=== PATIENT | female | born 1955 | race Caucasian/White ===

== ENCOUNTER → 2022-01-24 10:50 | Outpatient (CLI) | payer MEDICARE, MEDICAID, SELFPAY ==
[2022-01-24 16:38] LABS: Hemoglobin A1C 6.7 % (4.0-6.0)
== END ==
PROVIDERS: PCP Family Medicine; Visit Provider Family Medicine
DX: E11.9 Type 2 diabetes mellitus without complications (principal)
CPT/HCPCS: 83036

== ENCOUNTER 2022-09-17 10:32 | Emergency (ER) | payer MEDICARE, MEDICAID, SELFPAY ==
[2022-09-17 10:50] VITALS: BP 104/61; PULSE 87; RESP 18; TEMP 36.7; O2SAT 98; BMI 24.9
[2022-09-17 10:54] VITALS: BP 104/61; PULSE 88; RESP 20; O2SAT 98
[2022-09-17 11:00] VITALS: BP 112/64; PULSE 86; RESP 20; O2SAT 97
--- NOTE | 2022-09-17 11:18 | XR_ITS ---
PROCEDURE INFORMATION: Exam: XR Right Wrist Exam date and time: 09/17/2022 11:47 AM Age: 67 years old Clinical indication: Injury or trauma; Fall; Sprain or strain; Wrist; Right TECHNIQUE: Imaging protocol: Radiologic exam of the right wrist. Views: 3 or more views. COMPARISON: CR XR HAND RT MIN 3V 09/17/2022 11:45 AM FINDINGS: Bones/joints: No acute fracture or dislocation. Osteopenia. Soft tissues: Normal. IMPRESSION: No acute fracture or dislocation.
--- NOTE | 2022-09-17 11:25 | XR_ITS ---
PROCEDURE INFORMATION: Exam: XR Right Hand Exam date and time: 09/17/2022 11:45 AM Age: 67 years old Clinical indication: Injury or trauma; Fall; Sprain or strain; Hand; Right; Additional info: Fall, injury TECHNIQUE: Imaging protocol: Radiologic exam of the right hand. Views: 3 or more views. COMPARISON: No relevant prior studies available. FINDINGS: Limitations: Metallic ring overlying the 4th proximal phalanx. Bones/joints: No acute fracture or dislocation. Osteopenia. Degenerative change of the 2nd distal interphalangeal joint. Soft tissues: Normal. IMPRESSION: No acute fracture or dislocation.
--- NOTE | 2022-09-17 11:25 | XR_ITS ---
PROCEDURE INFORMATION: Exam: XR Right Forearm Exam date and time: 09/17/2022 11:49 AM Age: 67 years old Clinical indication: Injury or trauma; Fall; Sprain or strain; Arm, lower; Right; Additional info: Fall injury, pain lateral forearm TECHNIQUE: Imaging protocol: Radiologic exam of the right forearm. Views: 2 views. COMPARISON: No relevant prior studies available. FINDINGS: Bones/joints: No acute fracture or dislocation. Osteopenia. Soft tissues: Normal. IMPRESSION: No acute fracture or dislocation.
--- NOTE | 2022-09-17 11:26 | HMH.EDGENADL ---
Discharge Plan Disposition Patient Disposition: Home, Self-Care Prescriptions Prescriptions: No Action mecobalamin (vitamin B12) 1,000 mcg tablet,disintegrating 1,000 mcg sublingual DAILY Qty: 90 0RF Rx Instructions: place tablet under tongue and allow to dissolve for at least30 secs before swallowing Emgality Pen 120 mg/mL pen injector 120 mg SQ QMONTH Qty: 1 0RF pantoprazole [Protonix] 40 mg tablet,delayed release (DR/EC) 40 mg PO DAILY Qty: 90 3RF Trelegy Ellipta 200-62.5-25 mcg blister with device 1 inh inhalation DAILY Qty: 60 3RF Trulicity 3 mg/0.5 mL pen injector 3 mg SQ WEEKLY Qty: 2 3RF clonazepam [Klonopin] 1 mg tablet 1 mg PO TID sertraline 100 mg tablet 100 mg PO DAILY Qty: 90 3RF topiramate [Topamax] 100 mg tablet 100 mg PO DAILY Qty: 180 3RF tamsulosin 0.4 mg capsule 0.4 mg PO DAILY Qty: 90 3RF atorvastatin 80 mg tablet 80 mg PO DAILY Qty: 90 3RF promethazine 25 mg tablet 25 mg PO TID PRN (Reason: nausea and vomiting) Qty: 60 3RF ropinirole 2 mg tablet 2 mg PO BID Qty: 180 3RF Referrals Follow up/Referrals: Provider,Referral, MD [Primary Care Provider] - See instructions Activity Restrictions/Add. Instructions Additional Instructions/Restrictions: Wear your Velcro wrist splint as needed for comfort. If you are not improving in 1 to 2 weeks follow-up with orthopedic surgery. Clinical Impressions Clinical Impression: Sprain of right wrist Discharge ED Provider: Bashir Augustine General Adult HPI General Chief complaint: PAIN Stated complaint: [id number] right wrist pain,home fall Time Seen by Provider: 09/17/22 11:23 Mode of Arrival: Ambulatory Source of Information: Patient Limitations: No Limitations Description of Symptoms (Recalled from ER Triage Doc. by RN): PT C/O RIGHT WRIST PAIN AFTER A FALL FROM STANDING ON YESTERDAY. SWELLING AT SITE. CAP REFILL LESS THAN 3 SECONDS, + PULSES History of Present Illness HPI narrative: 67-year-old female who presents today with right wrist injury after mechanical fall. She denies any type of syncopal episode or any lightheadedness or any other preceding symptoms. She did sustain some mild injuries to her left wrist and her right lower leg but she states that they are very mild and she is here today because she had persistent pain in her right wrist with some swelling and soft tissue deformity. She also states she has some mild numbness over the medial aspect of the right thumb. Related Data Home Medications Medication Instructions Recorded Confirmed clonazepam 1 mg tablet (Klonopin) 1 mg PO TID 01/24/22 03/22/22 Previous Rx's Medication Instructions Recorded atorvastatin 80 mg tablet 80 mg PO DAILY #90 tabs 01/24/22 dulaglutide 3 mg/0.5 mL 3 mg (0.5 mL) SQ WEEKLY #2 mL 01/24/22 subcutaneous pen injector (Trulicity) fluticasone fur. 200 mcg-umeclid 1 inh inhalation DAILY #60 ea 01/24/22 62.5 mcg-vilant 25 mcg inhalat.powder (Trelegy Ellipta) galcanezumab-gnlm 120 mg/mL 120 mg SQ QMONTH #1 mL 01/24/22 subcutaneous pen injector (Emgality Pen) mecobalamin (vitamin B12) 1,000 1,000 mcg sublingual DAILY #90 tabs 01/24/22 mcg disintegrating tablet,sublingual pantoprazole 40 mg tablet,delayed 40 mg PO DAILY #90 tabs 01/24/22 release (Protonix) sertraline 100 mg tablet 100 mg PO DAILY #90 tabs 01/24/22 tamsulosin 0.4 mg capsule 0.4 mg PO DAILY #90 caps 01/24/22 topiramate 100 mg tablet (Topamax) 100 mg PO DAILY #180 tabs 01/24/22 promethazine 25 mg tablet 25 mg PO TID PRN nausea and 03/07/22 vomiting #60 tabs ropinirole 2 mg tablet 2 mg PO BID #180 tabs 03/16/22 Allergies Allergy/AdvReac Type Severity Reaction Status Date / Time acetaminophen [From Lortab] Allergy Intermediate Verified 03/22/22 11:30 hydrocodone [From Lortab] Allergy Intermediate Verified 03/22/22 11:30 codeine AdvReac Severe Verified 03/22/22 11:30 hydromorphone [From Dilaudid] AdvRe
[2022-09-17 11:30] VITALS: BP 111/75; PULSE 81; O2SAT 97
--- NOTE | 2022-09-17 11:59 | PC.NURSE ---
patient to radiology
--- NOTE | 2022-09-17 12:22 | PC.NURSE ---
patient called out for xray results, will speak to doctor when he is available
[2022-09-17 12:37] VITALS: BP 128/71; PULSE 72; RESP 16; TEMP 36.6; O2SAT 98
== END 2022-09-17 12:42 | disposition home or self-care (01) ==
PROVIDERS: Emergency Provider Student in an Organized Health Care Education/Training Program; PCP Nurse Practitioner Family
DX: S63.501A Unspecified sprain of right wrist, initial encounter (principal); W18.30XA Fall on same level, unspecified, initial encounter; E11.9 Type 2 diabetes mellitus without complications; J44.9 Chronic obstructive pulmonary disease, unspecified; K21.9 Gastro-esophageal reflux disease without esophagitis; E78.5 Hyperlipidemia, unspecified; F41.9 Anxiety disorder, unspecified; F32.A Depression, unspecified
CPT/HCPCS: 73090; 73110; 73130; 99284

== ENCOUNTER 2023-03-26 21:19 | Emergency (ER) | payer MEDICARE, MEDICAID, SELFPAY ==
[2023-03-26 21:21] VITALS: BP 122/66; PULSE 99; RESP 20; TEMP 36.8; O2SAT 100; BMI 24.5
[2023-03-26 21:27] VITALS: BP 122/66; PULSE 99; O2SAT 98
--- NOTE | 2023-03-26 21:32 | CT_ITS ---
PROCEDURE INFORMATION: Exam: CT Abdomen And Pelvis With Contrast Exam date and time: 03/26/2023 10:23 PM Age: 68 years old Clinical indication: Abdominal pain; Additional info: L CVA pain and paraspinal pain rad to flank TECHNIQUE: Imaging protocol: Computed tomography of the abdomen and pelvis with contrast. Total images: 576 Radiation optimization: All CT scans at this facility use at least one of these dose optimization techniques: automated exposure control; mA and/or kV adjustment per patient size (includes targeted exams where dose is matched to clinical indication); or iterative reconstruction. Contrast material: ISOVUE; Contrast volume: 75 ml; Contrast route: IV; COMPARISON: No relevant prior studies available. FINDINGS: Lungs: Linear bibasilar atelectasis. No airspace consolidation. Heart: Normal heart size. Liver: Normal size and contour. No mass. Gallbladder and bile ducts: Mild intrahepatic and extrahepatic bile duct dilatation with the common duct measuring 11 mm. Status post cholecystectomy. Pancreas: Normal. No ductal dilation. Spleen: Normal. No splenomegaly. Adrenal glands: Normal. No mass. Kidneys and ureters: Proximal bilateral hydroureter with adjacent edema and wall thickening. Scarring midpole right kidney. No hydronephrosis, nephrolithiasis, or pyelonephritis. No perinephric fluid. Stomach and bowel: Unremarkable stomach and duodenum. No ileus or bowel obstruction. Small bowel appears within normal limits. Unremarkable terminal ileum. Unremarkable colon and rectum. Appendix: Nonvisualized appendix. Intraperitoneal space: No ascites. No free air. Vasculature: Severely atherosclerotic aorta without aneurysm. Major abdominal vessels enhance appropriately. Lymph nodes: Unremarkable. No enlarged lymph nodes. Urinary bladder: Moderate bladder wall thickening, greater than expected for incomplete distension. Mild perivesicular edema. Reproductive: Status post hysterectomy. No pelvic mass. Bones/joints: Mild osteopenia. Moderate degenerative changes L4-L5 and L5-S1. Minor lumbar levocurvature. No acute osseous abnormality. Soft tissues: Postsurgical change right lower quadrant abdominal wall with mesh graph. IMPRESSION: 1. Abnormal bladder concerning for acute cystitis. 2. Abnormal bilateral ureters concerning for acute ascending urinary tract infection/pyelitis. 3. No obstructive uropathy, pyelonephritis, or renal calculi 4. Mild biliary ductal dilatation most likely from post cholecystectomy ectasia. If elevated bilirubin, recommend follow-up nonemergent MRCP.
--- NOTE | 2023-03-26 21:34 | ED_ITS ---
Discharge Plan Disposition Patient Disposition: Home, Self-Care Prescriptions Prescriptions: New cefdinir 300 mg capsule 300 mg PO BID 7 Days Qty: 14 0RF ketorolac 10 mg tablet 20 mg PO Q8H PRN (Reason: pain) Qty: 6 0RF No Action Trelegy Ellipta 200-62.5-25 mcg blister with device 1 inh inhalation DAILY Qty: 60 3RF Trulicity 3 mg/0.5 mL pen injector 3 mg SQ WEEKLY Qty: 2 3RF clonazepam [Klonopin] 1 mg tablet 1 mg PO TID sertraline 100 mg tablet 100 mg PO DAILY Qty: 90 3RF atorvastatin 80 mg tablet 80 mg PO DAILY Qty: 90 3RF tizanidine 2 mg tablet 2 mg PO HS PRN (Reason: Neck pain, cervicogenic headache) Qty: 60 5RF Rx Instructions: 1 tab po qhs x 1 week then 2 tabs po qhs if persistent neck pain Qulipta 60 mg tablet 60 mg PO DAILY Qty: 30 2RF ropinirole 2 mg tablet 2 mg PO BID Qty: 180 3RF Referrals Follow up/Referrals: Provider,Referral, MD [Primary Care Provider] - See instructions Activity Restrictions/Add. Instructions Additional Instructions/Restrictions: At this time it was felt you are safe to be discharged home. If new or worsening symptoms please do not hesitate to return the emergency department. If symptoms persist please follow-up with your family doctor as you are able. Please take your antibiotics as prescribed. Clinical Impressions Clinical Impression: Acute UTI, Back pain Discharge ED Provider: Jono Ray General Adult HPI General Chief complaint: Back Pain/Injury Stated complaint: sharp pain in back on the left Time Seen by Provider: 03/26/23 21:26 History of Present Illness HPI narrative: Patient is a 68-year-old female with past medical history of previous kidney stones, bladder sling x 2 who presents emergency department for evaluation of paraspinal and CVA pain. Onset was acute, occurring over the last 24 to 48 hours. Originally was right-sided paraspinal however has migrated to her left CVA radiating to her paraspinal area and flank. Does not wrap around into her abdomen. She has had previous kidney stones that have felt similar. She has associated dysuria. Due to persistent symptoms refractory to cranberry juice she presents here for continued evaluation. Related Data Home Medications Medication Instructions Recorded Confirmed clonazepam 1 mg tablet (Klonopin) 1 mg PO TID 01/24/22 03/13/23 Previous Rx's Medication Instructions Recorded atorvastatin 80 mg tablet 80 mg PO DAILY #90 tabs 01/24/22 dulaglutide 3 mg/0.5 mL 3 mg (0.5 mL) SQ WEEKLY #2 mL 01/24/22 subcutaneous pen injector (Trulicity) fluticasone fur. 200 mcg-umeclid 1 inh inhalation DAILY #60 ea 01/24/22 62.5 mcg-vilant 25 mcg inhalat.powder (Trelegy Ellipta) sertraline 100 mg tablet 100 mg PO DAILY #90 tabs 01/24/22 ropinirole 2 mg tablet 2 mg PO BID #180 tabs 03/16/22 atogepant 60 mg tablet (Qulipta) 60 mg PO DAILY Episodic migraine 03/13/23 #30 tabs tizanidine 2 mg tablet 2 mg PO HS PRN Neck pain, 03/13/23 cervicogenic headache #60 tabs cefdinir 300 mg capsule 300 mg PO BID UTI 7 days #14 caps 03/26/23 ketorolac 10 mg tablet 20 mg PO Q8H PRN pain #6 tabs 03/26/23 Allergies Allergy/AdvReac Type Severity Reaction Status Date / Time acetaminophen [From Lortab] Allergy Intermediate Verified 03/22/22 11:30 hydrocodone [From Lortab] Allergy Intermediate Verified 03/22/22 11:30 codeine AdvReac Severe Verified 03/22/22 11:30 hydromorphone [From Dilaudid] AdvReac Severe Verified 03/22/22 11:30 morphine AdvReac Severe Verified 03/22/22 11:30 oxycodone AdvReac Severe Verified 03/22/22 11:30 ondansetron [From Zofran] AdvReac Intermediate Verified 03/22/22 11:30 [facility] Disclaimer: The information contained in this section may have been updated after the patient was seen, as this information can be updated by other users. Medical History (Updated 03/26/23 @ 22:51 by Jono Ray MD) Anxiety and depression COPD (chronic obstructive pulmonary disease) GERD (gastroesophageal reflux disease) Hernia Hyperlipidemia Migraine headache Seizure disorder Tremor Type 2 diabetes mellitus Urinary incontinence, mixed Surgical History (Updated 03/13/23 @ 10:24 by Alesia Stephen MD) H/O hernia repair H/O neck surgery H/O: hysterectomy History of bladder surgery History of cholecystectomy Hx of appendectomy Family History (Updated 03/13/23 @ 08:35 by Selina Lopez) Other Cancer Diabetes Social History (Updated 03/13/23 @ 08:36 by Selina Lopez) Smoking Status: Current every day smoker alcohol intake: never substance use type: denies use current occupational status: disabled Travel in the last 8 weeks: None household members: significant other housing: house marital status: ROS Obtained: Yes Systems reviewed as appropriate & no additional complaints except as documented Physical Exam General General appearance: alert and other (Appearing uncomfortable in bed) Head Head exam: atraumatic and normocephalic Eye Eye exam: Present PERRL and EOMI ENT ENT exam: Present mucous membranes moist Neck Neck exam: Present normal inspection Chest Chest inspection: Present normal inspection and symmetric chest wall rise Respiratory Respiratory exam: Present normal lung sounds bilaterally; Absent respiratory distress Cardiovascular Cardiovascular exam: Present regular rate and normal rhythm Abdominal Exam Abdominal exam: Present soft; Absent tenderness External exam: Present other (Normal inspection, left CVA tenderness) Extremities Exam Extremities exam: Present normal inspection Neurological Exam Neurological exam: Present alert Psychiatric Psychiatric exam: Present normal affect Skin Skin exam: Present warm and dry Medical Decision Making Willie Inquiry Pt receiving controlled substance: No Vital Signs: 03/26/23 21:21 03/26/23 21:27 03/26/23 22:30 Temperature 98.2 F Temperature Source Oral Pulse Rate 99 H 100 H Pulse Rate [Left] 99 H Respiratory Rate 20 20 Blood Pressure 122/66 128/61 Blood Pressure [Right Arm] 122/66 Blood Pressure Mean 85 Blood Pressure Mean [Right Arm] 84 Blood Pressure Source [Right Arm] Automatic Cuff Blood Pressure Position [Right Arm] Sitting 02 Sat by Pulse Oximetry 100 98 97 Oxygen Delivery Method Room Air Room Air Lab Data Lab Results 03/26/23 21:38: Urine Color Yellow, Urine Appearance Slightly cloudy, Urine pH 6.0, Ur Specific [place] 1.015, Urine Protein 2+, Urine Glucose (UA) Negative, Urine Ketones Negative, Urine Blood 3+, Urine Nitrate Negative, Urine Bilirubin Negative, Urine Urobilinogen 0.2, Ur Leukocyte Esterase 2+ A, Urine RBC 10-20, Urine WBC 10-20, Ur Squamous Epith Cells 5-10, Urine Bacteria Trace 03/26/23 21:40: WBC 14.2 H, RBC 5.05, Hgb 13.3, Hct 39.7, MCV 78.6 L, MCH 26.4 L , MCHC 33.6, RDW 15.6, Plt Count 235, MPV 7.8, Neut % (Auto) 72.8, Lymph % (A uto) 19.3, [place] % (Auto) 4.8, Eos % (Auto) 2.6, Baso % (Auto) 0.5, Neut # (Auto) 10.3 H, Lymph # (Auto) 2.7, [place] # (Auto) 0.7, Eos # (Auto) 0.4, Baso # (Auto) 0.1, Sodium 134 L, Potassium 3.9, Chloride 102, Carbon Dioxide 27, Anion Gap 8.9, BUN 7, Creatinine 0.50 L, Estimated Creat Clear 57, Estimated GFR 123, Est GFR ( Amer) 149, Glucose 112 H, Calcium 8.6, Total Bilirubin 0.4, AST 33, ALT 30, Alkaline Phosphatase 58, Total Protein 7.3, Albumin 3.8, Globulin 3.5 H, Albumin/Globulin Ratio 1.1 03/26/23 21:40 03/26/23 21:40 Orders (Tests/Meds): ED MEDICATIONS Generic Name Dose Route Start Last Admin Trade Name Freq PRN Reason Stop Dose Admin Oxycodone HCl 5 mg 03/26/23 23:02 Oxycodone 5mg Immediate Release Tablet PO 03/26/23 23:03 ONCE ONE Sodium Chloride 10 ml 03/26/23 22:30 Sodium Chloride 0.9% 10ml Syr (Rad Only) IV 04/25/23 22:29 NEEDED PRN Maintain IV Site Discontinued Medications Generic Name Dose Route Start Last Admin Trade Name Freq PRN Reason Stop Dose Admin Acetaminophen 1,000 mg 03/26/23 21:33 03/26/23 21:51 Acetaminophen 1,000mg/100ml Vial IV 03/26/23 21:34 Not Given ONCE ONE Iopamidol 75 ml 03/26/23 22:30 03/26/23 22:31 Iopamidol-370 (76%);100ml Bottle IV 03/26/23 22:31 75 ml ONCE ONE Administration Ketorolac Tromethamine 30 mg 03/26/23 21:33 03/26/23 21:40 Ketorolac 30mg/Ml Vial IV 03/26/23 21:34 30 mg ONCE ONE Administration Lidocaine 1 each 03/26/23 21:33 03/26/23 21:40 Lidocaine 5% Transdermal Patch TP 03/26/23 21:34 1 each ONCE ONE Administration ORDERS Category Date Time Status CT abdomen pelvis w con Stat Cat Scan 03/26/23 21:32 Completed CBC w/Auto Diff [Complete Blood Count Auto Diff] Stat Lab 03/26/23 21:40 Completed CMP [Comprehensive Metabolic Panel] Stat Lab 03/26/23 21:40 Completed UA [Urinalysis and Microscopic] Stat Lab 03/26/23 21:38 Completed Urine Culture Stat Micro 03/26/23 21:38 Received Medical Decision Narrative: In summary patient is a 68-year-old female with past medical history described above who presents emergency department for evaluation of left CVA pain. Patient is hemodynamically stable and nontoxic-appearing upon arrival, afebrile. Differential diagnosis includes ureterolithiasis, urinary tract infection, lumbago, among others. Workup will be conducted with hematologic labs, urinalysis, CT abdomen pelvis IV contrast. Initial inventions include multimodal pain control with Toradol, IV Tylenol, lidocaine patch. Initial wo rkup reviewed by me, leukocytosis of 14.2, no critical electrolyte abnormalities, no SKYLAR urinalysis has significant hematuria and leukocyturia with trace bacteria, nitrite negative. Upon repeat evaluation patient had persistent pain for which oxycodone will be administered. Patient has multiple opiate allergies however has tolerated oxycodone previously. CT imaging remarkable for abnormal ureters concerning for ascending pyelitis. No evidence of pyelonephritis. Patient has thickened urinary bladder consistent with urinary tract infection. Patient will be discharged with a prescription for cefdinir, first dose administered here, as well as a single dose of Toradol to take tomorrow. Patient is appropriate for discharge at this time and was given return precautions. Critical Care Critical Care Time Critical Care Time: No
[2023-03-26] MEDS: LIDOCAINE 5% TRANSDERMAL PATCH 1 EACH TP (21:40)
[2023-03-26] MEDS: KETOROLAC 30MG/ML VIAL 30 MG IV (21:40)
[2023-03-26 21:43] LABS: Microscopic, Urine URINE MICROSCOPIC (MICROSCOPIC)
[2023-03-26 21:45] LABS: Bilirubin,Urine Negative (Negative); Blood, Urine 3+ (Negative); Color,Urine YELLOW (Yellow); Glucose,Urine (UA) Negative (Negative); Ketones,Urine Negative (Negative); Leukocyte Esterase,Urine 2+ (Negative); Nitrate,Urine Negative (Negative); Protein,Urine 2+ (Negative); Specific Gravity, Urine 1.015 (1.005-1.030); Urobilinogen,Urine 0.2 EU/dl (0.2)
[2023-03-26 21:47] LABS: Appearance,Urine Slightly Cloudy (Clear)
[2023-03-26 22:02] LABS: Basophils # 0.1 K/mm3 (0-0.2); Basophils % 0.5 % (0.1-2.0); Eosinophils # 0.4 K/mm3 (0.0-0.4); Eosinophils % 2.6 % (0.1-12.0); Hematocrit 39.7 % (37.0-47.0); Hemoglobin 13.3 g/dL (12.2-16.2); Lymphocytes # 2.7 K/mm3 (0.7-4.5); Lymphocytes % 19.3 % (10-50); Mean Corpuscular HGB Conc 33.6 g/dL (31.8-35.4); Mean Corpuscular Hemoglobin 26.4 pg (27.0-31.2); Mean Corpuscular Volume 78.6 fl (81-99); Mean Platelet Volume 7.8 fl (7.4-10.4); Monocytes # 0.7 K/mm3 (0.1-1.0); Monocytes % 4.8 % (1.7-9.3); Neutrophils # 10.3 K/mm3 (1.8-7.8); Neutrophils % 72.8 % (37.0-80.0); Platelet Count 235 K/mm3 (142-424); Red Blood Count 5.05 M/mm3 (4.20-5.40); Red Cell Distribution Width 15.6 % (11.5-17.5); White Blood Count 14.2 K/mm3 (4.8-10.8)
[2023-03-26 22:06] LABS: Bacteria,Urine Trace /lpf
[2023-03-26 22:06] LABS: Chloride 102 mmol/L (98-107); Potassium 3.9 mmoL/L (3.5-5.1); Sodium 134 mmol/L (136-145)
[2023-03-26 22:09] LABS: Alanine Aminotransferase 30 U/L (12-78); Albumin Level 3.8 g/dl (3.5-5.0); Albumin/Globulin Ratio 1.1 (1.1-1.8); Alkaline Phosphatase 58 U/L (38-126); Anion Gap 8.9 mEq/L (5-15); Aspartate Amino Transferase 33 U/L (14-36); Bilirubin,Total 0.4 mg/dl (0.2-1.3); Blood Urea Nitrogen 7 mg/dl (7-17); Carbon Dioxide 27 mmol/L (22.0-30.0); Creatinine Clearance Estimated 57 mL/min (50-200); Estimated Glomerular Filt Rate 123 ml/min (>60); GFR (African American) 149 ML/MIN (>60); Globulin 3.5 g/dL (1.3-3.2); Total Protein,Serum 7.3 g/dl (6.3-8.2)
[2023-03-26 22:10] LABS: Calcium 8.6 mg/dl (8.4-10.2); Glucose 112 mg/dl (74-100)
[2023-03-26 22:30] VITALS: BP 128/61; PULSE 100; RESP 20; O2SAT 97
[2023-03-26] MEDS: IOPAMIDOL-370 (76%);100ML BOTTLE 75 ML IV (22:31)
[2023-03-26] MEDS: CEFDINIR 300MG CAPSULE 300 MG PO (23:14)
[2023-03-26] MEDS: OXYCODONE 5MG IMMEDIATE RELEASE TABLET 5 MG PO (23:14)
[2023-03-26 23:40] VITALS: BP 128/75; PULSE 82; RESP 18; TEMP 36.8; O2SAT 98
--- NOTE | 2023-03-30 08:40 | PC.NURSE ---
Spoke with Gaston in office about urine culture results, ordered IM invanz and sent to [facility], Contacted due to pt needing an outpt order to be given the IM injection. Gaston states that she will discuss with and fu with the pt with the plan. Faxed results to [phone].
--- NOTE | 2023-03-31 12:35 | PC.NURSE ---
SPOKE WITH PETTY AGAIN AT DR BONE'S OFFICE, PT NEEDS OUT PT ORDER FOR INVANZ INJECTION FOR UTI. STATES SHE WILL LET DR BONE KNOW
== END 2023-03-26 23:41 | disposition home or self-care (01) ==
PROVIDERS: Emergency Provider Emergency Medicine
DX: N39.0 Urinary tract infection, site not specified (principal); B96.29 Other Escherichia coli [E. coli] as the cause of diseases classified elsewhere; M54.59 Other low back pain; F17.210 Nicotine dependence, cigarettes, uncomplicated; J44.9 Chronic obstructive pulmonary disease, unspecified; K21.9 Gastro-esophageal reflux disease without esophagitis; E11.9 Type 2 diabetes mellitus without complications; E78.5 Hyperlipidemia, unspecified; Z79.85 Long-term (current) use of injectable non-insulin antidiabetic drugs; Z87.442 Personal history of urinary calculi
CPT/HCPCS: 74177; 80053; 81001; 85025; 87086; 96374; 96375; 99285; J0131; Q9967

== ENCOUNTER 2023-03-31 14:41 | Outpatient (CLI) | payer MEDICARE, MEDICAID, SELFPAY ==
[2023-03-31 14:41] VITALS: BP 103/55; PULSE 92; RESP 17; TEMP 36.6; O2SAT 96
[2023-03-31] MEDS: ERTAPENEM SODIUM 1 GM VIAL IM (15:15)
== END 2023-03-31 15:25 | disposition home or self-care (01) ==
LOC: INF 14:42
PROVIDERS: PCP Nurse Practitioner Family; Visit Provider Nurse Practitioner Family
DX: N39.0 Urinary tract infection, site not specified (principal)
CPT/HCPCS: 36415; 96372; J1335

== ENCOUNTER 2023-04-05 07:45 | Outpatient (CLI) | payer MEDICARE, MEDICAID, SELFPAY ==
[2023-04-05 08:05] LABS: Basophils % 0.3 % (0.1-2.0); Eosinophils # 0.3 K/mm3 (0.0-0.4); Eosinophils % 3.5 % (0.1-12.0); Hematocrit 41.5 % (37.0-47.0); Hemoglobin 13.5 g/dL (12.2-16.2); Lymphocytes # 2.2 K/mm3 (0.7-4.5); Lymphocytes % 22.6 % (10-50); Mean Corpuscular HGB Conc 32.6 g/dL (31.8-35.4); Mean Corpuscular Hemoglobin 25.8 pg (27.0-31.2); Mean Corpuscular Volume 79.3 fl (81-99); Mean Platelet Volume 7.7 fl (7.4-10.4); Monocytes # 0.5 K/mm3 (0.1-1.0); Neutrophils # 6.5 K/mm3 (1.8-7.8); Neutrophils % 68.6 % (37.0-80.0); Platelet Count 267 K/mm3 (142-424); Red Blood Count 5.23 M/mm3 (4.20-5.40); Red Cell Distribution Width 15.8 % (11.5-17.5); White Blood Count 9.5 K/mm3 (4.8-10.8)
--- NOTE | 2023-04-05 08:17 | MR_ITS ---
FINAL REPORT CLINICAL HISTORY: migraine,tremor,history of a seizure dizziness blurred vision 13 ml prohance FINDINGS: Multiplanar MR imaging of the brain was performed without and with contrast. Multiple foci of increased T2 signal are seen in the cerebral white matter that have a nonspecific, may represent [id number] chronic ischemic/gliotic changes, demyelination, or changes of vasculitis. There is no evidence of intracranial hemorrhage or mass. No abnormal ventricular dilatation is identified. There is no evidence of shift of the midline structures. No abnormal extra-axial fluid collection is seen. No area of abnormal restricted diffusion is identified. The posterior fossa and brainstem have an unremarkable appearance. No abnormal contrast enhancement is seen. Normal major vessel vascular flow voids are seen. IMPRESSION: Abnormal T2 signal in the cerebral white matter, may represent chronic ischemic/gliotic changes, demyelination, or changes of vasculitis. No acute intracranial abnormality. Reviewed, Interpreted and Dictated by Chester Ceja III, MD Transcribed by Jojo Goddard Authenticated and . [facility]
[2023-04-05 08:39] LABS: Chloride 104 mmol/L (98-107); Potassium 4.4 mmoL/L (3.5-5.1); Sodium 136 mmol/L (136-145)
[2023-04-05 08:42] LABS: Alanine Aminotransferase 43 U/L (12-78); Albumin Level 3.8 g/dl (3.5-5.0); Albumin/Globulin Ratio 1.2 (1.1-1.8); Alkaline Phosphatase 68 U/L (38-126); Anion Gap 7.4 mEq/L (5-15); Aspartate Amino Transferase 39 U/L (14-36); Bilirubin,Total 0.3 mg/dl (0.2-1.3); Blood Urea Nitrogen 10 mg/dl (7-17); Carbon Dioxide 29 mmol/L (22.0-30.0); Erythrocyte Sedimentation Rate 18 mm/hr (0-30); Estimated Glomerular Filt Rate 100 ml/min (>60); GFR (African American) 121 ML/MIN (>60); Globulin 3.2 g/dL (1.3-3.2)
[2023-04-05 08:43] LABS: Calcium 9.3 mg/dl (8.4-10.2); Glucose 150 mg/dl (74-100)
[2023-04-05] MEDS: SODIUM CHLORIDE 0.9% 10ML SYR (RAD ONLY) 10 ML IV (09:48)
[2023-04-05] MEDS: GADOTERIDOL INJ 17ML SYRINGE 13 ML IV (09:48)
[2023-04-05 09:52] LABS: Folate 8.69 ng/mL
[2023-04-05 13:06] LABS: Vitamin B12 389 pg/mL (239-931)
== END 2023-04-05 23:59 ==
LOC: RAD 07:46
PROVIDERS: PCP Nurse Practitioner Family; Visit Provider Specialist
DX: G43.909 Migraine, unspecified, not intractable, without status migrainosus; R25.1 Tremor, unspecified; H47.211 Primary optic atrophy, right eye
CPT/HCPCS: 36415; 70553; 80053; 82607; 82746; 85025; 85651; A9576

== ENCOUNTER 2023-04-27 09:27 | Outpatient (CLI) | payer MEDICARE, MEDICAID, SELFPAY ==
--- NOTE | 2023-04-27 09:35 | XR_ITS ---
FINAL REPORT CLINICAL HISTORY: Neck pain COMPARISON: None FINDINGS: Three views of the cervical spine were obtained. There is fusion of C5, C6, and C7. There is no fracture present. There is no malalignment. There is mild degenerative change. IMPRESSION: Postoperative and degenerative changes without acute process. Reviewed, Interpreted and Dictated by Chester Ceja III, MD Transcribed by Estrella Helms Authenticated and [facility]
== END 2023-04-27 23:59 ==
LOC: RAD 09:28
PROVIDERS: PCP Nurse Practitioner Family; Visit Provider Specialist
DX: G44.86 Cervicogenic headache (principal)
CPT/HCPCS: 72040

== ENCOUNTER 2023-05-02 09:00 | Outpatient (RCR) | payer MEDICARE, MEDICAID, SELFPAY ==
--- NOTE | 2023-04-25 14:30 | HMH.PTOPEV ---
PT Outpatient Evaluation Rehab PT Outpatient Evaluation Start: 04/25/23 09:02 Freq: Status: Active Protocol: Document 04/25/23 09:02 REFUGIO (Rec: 04/25/23 12:43 REFUGIO [id number]) E-signed By Cheyenne Hong, PT Outpatient Therapy Subjective History Subjective History Pt is a 68 y/o female who reports chronic neck pain and headaches/migraines since 1989 after her son from cancer. Pt reports history of cervical discectomy and fusion ~2011-, pt unsure of which specific segments were involved. Pt reports painful popping of her neck with movement and numbness of the neck since surgery. Pt denies UE numbness /tingling with exception of her R wrist to her thumb and index finger after fracturing her wrist last year. Pt reports constant neck stiffness and pain from the back of her neck to both shoulders. Pt reports pain is aggravated by looking over both shoulders and bending forward. Pt also reports chronic migraines that result in sweating, anxiety, nausea/ vomiting, dizziness, light/ noise sensitivity and blurred vision when pain is severe. Pt reports 3-4 severe migraines within the last month. Pt reports mild-moderate migraines most of the days. Pt had a brain MRI on 04/05/23 with impression of Abnormal T2 signal in the cerebral white matter, may represent chronic ischemic/gliotic changes, demyelination, or changes of vasculitis. No acute intracranial abnormality . Pt reports she was prescribed Tizanidine which helps neck pain but not her migraines. Pt reports history of botox and nerve blocks without improvement in migraine symptoms. Pt reports her sleep is greatly disturbed due to neck pain and migraines. Pt reports she has had imaging of her neck previously at a different facility without known fractures. Pt denies having revent imaging of her neck. Medical History: Anxiety and depression, COPD (chronic obstructive pulmonary disease) , GERD (gastroesophageal reflux disease), Hernia, Hyperlipidemia, Migraine headache, Seizure disorder, History of seizure in 2014, History familial tremor, Type 2 diabetes mellitus, Urinary incontinence, mixed, Hx stroke in 2018 Tests: 4/4 tenderness to palpation of cervical mm and joint segments, reproduction of headache upon palpation of upper cervical spine and suboccipital mm New diagnosis of cancer in past 12 No months? Chief Complaint Pain Symptom Type Ache,Sharp,Dull,Numbness Symptoms Relieved By Heat,Prescription Meds Symptoms Aggravated By Physical Activity Current Functional Limitations Lifting,Housework,Desk Work/ Reading,Sleeping,Recreation Activity,Bending/Stooping Symptom Description Constant but Variable Level of pain today (0-10) 8 Pain scale - at its best (0-10) 4 Pain scale - at its worst (0-10) 10 Cervical Eval Palpation Cervical Muscles R Cervical Paraspinal,L Cervical Paraspinal,R Suboccipital,L Suboccipital,R SCM,L SCM,R CT Junction,L CT Junction,R Upper Trapezius,L Upper Trapezius,R Thoracic Paraspinals,L Thoracic Paraspinals Cervical/Thoracic Palpation Findings Tenderness,Muscle Guarding Flexibility Deficits Upper Trapezius Muscle Length (R) Moderate Tightness,(L) Moderate Tightness Levaetor Scapulae Muscle Length (R) Moderate Tightness,(L) Moderate Tightness Pectoralis Major Muscle Length (R) Moderate Tightness,(L) Moderate Tightness Pectoralis Minor Muscle Length (R) Moderate Tightness,(L) Moderate Tightness AROM Cervical Spine Extension Active Range of 25 Motion (degrees) Cervical Spine Flexion Active Range of 40 Motion (degrees) Cervical Spine Right Lateral Flexion 20 Active Range of Motion (degrees) Cervical Spine Left Lateral Flexion 35 Active Range of Motion (degrees) Cervical Spine Right Rotation Active 60 Range of Motion (degrees) Cervical Spine Left Rotation Active 65 Range of Motion (degrees) MMT Bilateral Deltoid (C5) 5 Normal Biceps Brachii Strength Grade 5 Normal Wrist Extension Strength Grade 5 Normal Triceps Brachii Strength Grade 5 Normal Wrist Flexion Strength Grade 5 Normal Extensor Pollicis Longus Strength Grade 5 Normal Finger Abduction Strength Grade 5 Normal Altered Sensation Upper extremity Dermatomes C6,C7 Comment decreased right compared to L Special Test C-spine Verterbral Accessory Movements Central P/A [place],Right P/A that Elicit Symptoms [place],Left P/A [place] Shoulder/Elbow Eval Shoulder Objective Measurements Shoulder MMT Bilateral Lower Trapezius Strength Grade 3+ Fair+ Middle Trapezius Strength Grade 3+ Fair+ Upper Trapezius/Levator Scapulae 4- Good- Elbow Objective Measurements Neck Disability Index Neck Disability Index Section 1: Pain Intensity The pain is very severe at the moment Section 2: Personal Care (washing, I can look after myself dressing, etc.) normally without causing extra pain Section 3: Lifting Pain prevents me lifting heavy weights off the floor, but I can manage Section 4: Reading I can read as much as I want with moderate pain in my neck Section 5: Headaches I have severe headaches, which come frequently Section 6: Concentration I have a fair degree of difficulty in concentrating when I want to Section 7: Work I can only do my usual work, but no more Section 8: Driving I can drive my car without any neck pain Section 9: Sleeping My sleep is moderately disturbed (2-3 hrs. sleepless) Section 10: Recreation I am able to engage in most, but not all of my usual recreation NDI Score 20 Outpatient Therapy Assessment Impairments Problems/Impairmments Palpation Tenderness,Impaired Range of Motion,Impaired Strength,Impaired Lifting, Impaired Household Care, Impaired Bending,Impaired Recreational Activities, Impaired Desk/Computer Activities,Subjective C/O Pain ,Impaired Self Care/Self Management Prognosis Rehab Potential Fair Comment barrier to progress includes chronic pain and migraines Clinical Impression Consistent with Diagnosis Yes Short Term Goals Number of Weeks 3 Decrease Subjective C/O Pain Yes: Improve pain at worst to 8/10 to improve overall QOL Improve Self Care/Self Management Yes Patient to be Ind w/ HEP Yes Top Closer Goals Number of Weeks 6 Increase Range of Motion Yes: Improve cervical AROM flex ext to 40, LF to 40, and rot to 70 Increase Strength Yes: Improve scapular strength to 4-4+/5 grossly to assist with posture Improve Neck Disability Index Score Yes: Improve score to 15 or less to improve overall QOL Decrease Subjective C/O Pain Yes: Improve pain at worst to 6/10 to improve overall QOL Outpatient Therapy Plan of Care Treatment Plan May Include Therapeutic Exercise Including Home Yes Exercise Program Manual Therapy Techniques Yes Neuromuscular Re-education Yes Therapeutic Activities to Return to Yes Previous Functional/Work Level ADL/Self Care Education Yes Dry Needling Yes Thermal Modalities Yes Electrical Stimulation Yes Ultrasound/Phonophoresis Yes Iontophoresis Yes Massage Yes Group Therapy for Medicare Yes Eval/Re-Eval Yes Frequency Times per week 2 Duration Number of Weeks 4-6 Addendums This patient is a candidate for social No or vocational rehab? Patient/Guardian verbally acknowledges Yes understanding of treatment program and consents to further treatment? Patient/Guardian verbally acknowledges Yes understanding of diagnosis, prognosis and goals for treatment? Eval Complexity PT Charges 85236 - Moderate Complexity PHYSICIAN CERTIFICATION: I certify the specified therapy services for Cecile Escobedo are required, authorized, and reviewed every 30 days.
== END 2023-05-02 09:05 | disposition home or self-care (01) ==
LOC: PT 09:00
PROVIDERS: Visit Provider Specialist
DX: G44.86 Cervicogenic headache (principal); M54.2 Cervicalgia; Z98.890 Other specified postprocedural states
CPT/HCPCS: 97010; 97014; 97035; 97140; 97163; G0283

== ENCOUNTER 2023-05-04 09:20 | Emergency (ER) | payer MEDICARE, MEDICAID, SELFPAY ==
[2023-05-04 09:30] VITALS: BP 121/79; PULSE 84; RESP 21; TEMP 36.7; O2SAT 96; BMI 26.1
--- NOTE | 2023-05-04 09:34 | ED_ITS ---
Discharge Plan Disposition Patient Disposition: Home, Self-Care Condition: Good Prescriptions Prescriptions: New triamcinolone acetonide 0.1 % cream 1 applic topical BID PRN (Reason: itching) Qty: 30 0RF promethazine 25 mg tablet 25 mg PO TID PRN (Reason: nausea and vomiting) Qty: 20 0RF methylprednisolone 4 mg Tablets,Dose Pack 4 mg PO DIRECTED 6 Days Qty: 21 0RF Rx Instructions: Take 1 pack as directed for 6 days famotidine 20 mg tablet 20 mg PO BID 10 Days Qty: 20 0RF No Action clonazepam [Klonopin] 1 mg tablet 1 mg PO TID sertraline 100 mg tablet 100 mg PO DAILY Qty: 90 3RF atorvastatin 80 mg tablet 80 mg PO DAILY Qty: 90 3RF tizanidine 4 mg tablet 4 mg PO HS MDD 4 mg PRN (Reason: muscle spasticity) Qty: 30 5RF Referrals Follow up/Referrals: Provider,Referral, MD [Primary Care Provider] - See instructions Activity Restrictions/Add. Instructions Additional Instructions/Restrictions: Stop the tizanidine (zanaflex) and don't take this medication again. Start listing it on your allergy lists at your pharmacy and your health care providers. Don't start the oral steroids (methypredisone/medrol dose pack) until tomorrow since you had the shot today. I sent in a prescription for phenergran (promethazine) in case you have more nausea. If you take benedryl at home for your itching then don't take the phenergran too because these are very similar medications and they will make you too drowsy together. Don't put the topical steroids (triamcinolone) on your face or your groin. Follow up with your regular doctor. GO TO THE ER FOR ANY WORSENING SYMPTOMS OR CONCERNS Clinical Impressions Clinical Impression: Allergic reaction Instructions Patient Instructions: DI for Adverse Drug Reaction -- Allergic, Triamcinolone Topical, Promethazine, Famotidine, Dexamethasone Injection Discharge ED Provider: Jacob Frazier [facility] General Stated complaint: body rash Time Seen by Provider: 05/04/23 09:34 History of Present Illness Provider Complaint: She states that for the past 3 days she has had a worsening itchy rash on her arms, legs, abdomen and back. She was prescribed tizanidine last week by her pcp. She states that she believes she is having an allergic reaction to that medication. She denies any chest pain, shortness of breath, mouth or throat swelling. Related Data Home Medications Medication Instructions Recorded Confirmed clonazepam 1 mg tablet (Klonopin) 1 mg PO TID 01/24/22 05/04/23 Previous Rx's Medication Instructions Recorded atorvastatin 80 mg tablet 80 mg PO DAILY #90 tabs 01/24/22 sertraline 100 mg tablet 100 mg PO DAILY #90 tabs 01/24/22 tizanidine 4 mg tablet 4 mg PO HS PRN muscle spasticity 04/24/23 #30 tabs famotidine 20 mg tablet 20 mg PO BID 10 days #20 tabs 05/04/23 methylprednisolone 4 mg tablets in 4 mg PO DIRECTED 6 days #21 tabs 05/04/23 a dose pack promethazine 25 mg tablet 25 mg PO TID PRN nausea and 05/04/23 vomiting #20 tabs triamcinolone acetonide 0.1 % 1 applic topical BID PRN itching 05/04/23 topical cream #30 grams Allergies Allergy/AdvReac Type Severity Reaction Status Date / Time acetaminophen [From Lortab] Allergy Intermediate Verified 04/24/23 08:41 hydrocodone [From Lortab] Allergy Intermediate Verified 04/24/23 08:41 codeine AdvReac Severe Verified 04/24/23 08:41 hydromorphone [From Dilaudid] AdvReac Severe Verified 04/24/23 08:41 morphine AdvReac Severe Verified 04/24/23 08:41 oxycodone AdvReac Severe Verified 04/24/23 08:41 ondansetron [From Zofran] AdvReac Intermediate Verified 04/24/23 08:41 [facility] Disclaimer: The information contained in this section may have been updated after the patient was seen, as this information can be updated by other users. Medical History Anxiety and depression COPD (chronic obstructive pulmonary disease) GERD (gastroesophageal reflux disease) Hernia Hyperlipidemia Migraine headache Seizure disorder History of seizure in 2015, unable to provide further information. Records from [facility] requested Tremor History familial tremor. No significant improvement noticed with Topiramate Type 2 diabetes mellitus Urinary incontinence, mixed Surgical History H/O hernia repair H/O neck surgery H/O: hysterectomy History of bladder surgery History of cholecystectomy Hx of appendectomy Family History Other Cancer Diabetes Social History Smoking Status: Current every day smoker alcohol intake: never substance use type: denies use current occupational status: disabled Travel in the last 8 weeks: None household members: significant other housing: house marital status: ROS Obtained: Yes All systems reviewed & no additional complaints except as documented Constitutional Constitutional: Denies chills and Denies fever(s) Eyes Eyes: Denies eye discharge ENT Ears, Nose, Mouth, and Throat: Denies dizziness, Denies otalgia and Denies sore throat Cardiovascular Cardiovascular: Denies chest pain Respiratory Respiratory: Denies shortness of breath, Denies chest congestion, Denies cough, Denies stridor and Denies wheezing Gastrointestinal Gastrointestingal: Denies nausea or vomiting Musculoskeletal Musculoskeletal: Reports system reviewed and no additional complaints, except as documented and Denies arthralgias Integumentary/Breasts Skin/Breast: Reports as per HPI and Reports rash Neurologic Neurologic: Denies dizziness and Denies paresthesias Allergic/Immunologic Allergic/Immunologic: Denies wheezing Physical Exam General General appearance: alert and in no apparent distress Head Head exam: atraumatic, normocephalic and normal inspection Eye Eye exam: Present normal appearance, PERRL and EOMI ENT ENT exam: Present normal exam, normal oropharynx, mucous membranes moist, TM's normal bilaterally and normal external ear exam Neck Neck exam: Present normal inspection, full ROM and trachea midline; Absent meningismus or lymphadenopathy Chest Chest inspection: Present normal inspection and symmetric chest wall rise; Absent tenderness Respiratory Respiratory exam: Present normal lung sounds bilaterally; Absent respiratory distress Cardiovascular Cardiovascular exam: Present regular rate and normal rhythm; Absent JVD Abdominal Exam Abdominal exam: Present soft and normal bowel sounds; Absent distention, tenderness or guarding Extremities Exam Extremities exam: Present normal inspection, full ROM and normal capillary refill; Absent calf tenderness Back Exam Back exam: Present normal inspection; Absent tenderness Neurological Exam Neurological exam: Present alert and oriented X3 Psychiatric Psychiatric exam: Present normal affect and normal mood Skin Skin exam: Present rash Lymphatic Lymphatic Findings: no adenopathy Medical Decision Making Medical Records Medical records reviewed: No I reviewed the patient's medical records. Willie Inquiry Pt receiving controlled substance: No Lab Data Lab results reviewed: Yes I reviewed the patient's lab results.
[2023-05-04 09:59] VITALS: BP 121/79; PULSE 84; RESP 21; TEMP 36.7; O2SAT 96
[2023-05-04] MEDS: DEXAMETHASONE 4MG/ML 1ML VIAL 8 MG IM (10:10)
[2023-05-04] MEDS: PROMETHAZINE HCL 25MG/ML 1ML VIAL 25 MG IM (10:38)
--- NOTE | 2023-05-04 10:52 | PC.NURSE ---
PATIENT'S GRANDSON HERE TO TAKE PATIENT HOME
== END 2023-05-04 10:56 | disposition home or self-care (01) ==
PROVIDERS: Emergency Provider Nurse Practitioner Family
DX: T78.40XA Allergy, unspecified, initial encounter (principal); R21 Rash and other nonspecific skin eruption; J44.9 Chronic obstructive pulmonary disease, unspecified; K21.9 Gastro-esophageal reflux disease without esophagitis; G40.909 Epilepsy, unspecified, not intractable, without status epilepticus; G43.909 Migraine, unspecified, not intractable, without status migrainosus; E78.5 Hyperlipidemia, unspecified; E11.9 Type 2 diabetes mellitus without complications; F17.200 Nicotine dependence, unspecified, uncomplicated
CPT/HCPCS: 96372; 99204; 99212; G0463

== ENCOUNTER 2023-05-11 12:34 | Outpatient (CLI) | payer MEDICARE, MEDICAID, SELFPAY ==
[2023-05-11 13:10] VITALS: BP 110/56; PULSE 95; RESP 16; TEMP 36.6; O2SAT 93
[2023-05-11] MEDS: EPTINEZUMAB JJMR IV (13:10)
[2023-05-11] MEDS: 0.9 % SODIUM CHLORIDE 50 ML 100 ML IV (13:10)
[2023-05-11] MEDS: SODIUM CHLORIDE 0.9% IV (13:10)
== END 2023-05-11 23:59 | disposition home or self-care (01) ==
PROVIDERS: PCP Nurse Practitioner Family; Visit Provider Specialist
DX: G43.019 Migraine without aura, intractable, without status migrainosus (principal)
CPT/HCPCS: 96365; J3032

== ENCOUNTER 2023-05-19 01:04 | Emergency (ER) | payer MEDICARE, MEDICAID, SELFPAY ==
--- NOTE | 2023-05-19 01:06 | ECG_ITS ---
APPROVED REPORT Exam: Resting ECG HR:89 bpm ECG Measurements Heart Rate 89 AXES NM 155 P 70 QRSd 82 QRS 15 QT 365 T 72 QTc 411 Conclusion SINUS RHYTHM NORMAL ECG Electronically signed by : TIFFANY CAMILO, 05/25/2023 15:28:36
--- NOTE | 2023-05-19 01:10 | ED_ITS ---
Discharge Plan Disposition Patient Disposition: Left Against Medical Advice Prescriptions Prescriptions: No Action clonazepam [Klonopin] 1 mg tablet 1 mg PO TID sertraline 100 mg tablet 100 mg PO DAILY Qty: 90 3RF atorvastatin 80 mg tablet 80 mg PO DAILY Qty: 90 3RF tizanidine 4 mg tablet 4 mg PO HS MDD 4 mg PRN (Reason: muscle spasticity) Qty: 30 5RF triamcinolone acetonide 0.1 % cream 1 applic topical BID PRN (Reason: itching) Qty: 30 0RF promethazine 25 mg tablet 25 mg PO TID PRN (Reason: nausea and vomiting) Qty: 20 0RF methylprednisolone 4 mg Tablets,Dose Pack 4 mg PO DIRECTED 6 Days Qty: 21 0RF Rx Instructions: Take 1 pack as directed for 6 days famotidine 20 mg tablet 20 mg PO BID 10 Days Qty: 20 0RF Referrals Follow up/Referrals: Provider,Referral, MD [Primary Care Provider] - See instructions Clinical Impressions Clinical Impression: Chest pain at rest, Chest pain Back pain Qualifiers: Back pain location: thoracic back pain Chronicity: acute Back pain laterality: midline Qualified Code(s): M54.6 - Pain in thoracic spine Discharge ED Provider: Adrian Deluca General Adult HPI General Chief complaint: Chest Pain Stated complaint: CP Time Seen by Provider: 05/19/23 01:05 History of Present Illness HPI narrative: 68-year-old female with history of COPD, hyperlipidemia, type 2 diabetes, presents with several hours of chest and back pain. She reports a central pain/pressure sensation that has been ongoing since approximately 1 PM, 12 hours prior to arrival. She initially thought it was indigestion but the pain started to radiate into her back and that scared her. She denies any history of coronary artery disease or heart attack. She denies any recent fever or illness. Denies any significant shortness of breath. Reports the pain in her back is like somebody is punching/stabbing. Related Data Home Medications Medication Instructions Recorded Confirmed clonazepam 1 mg tablet (Klonopin) 1 mg PO TID 01/24/22 05/04/23 Previous Rx's Medication Instructions Recorded atorvastatin 80 mg tablet 80 mg PO DAILY #90 tabs 01/24/22 sertraline 100 mg tablet 100 mg PO DAILY #90 tabs 01/24/22 tizanidine 4 mg tablet 4 mg PO HS PRN muscle spasticity 04/24/23 #30 tabs famotidine 20 mg tablet 20 mg PO BID 10 days #20 tabs 05/04/23 methylprednisolone 4 mg tablets in 4 mg PO DIRECTED 6 days #21 tabs 05/04/23 a dose pack promethazine 25 mg tablet 25 mg PO TID PRN nausea and 05/04/23 vomiting #20 tabs triamcinolone acetonide 0.1 % 1 applic topical BID PRN itching 05/04/23 topical cream #30 grams Allergies Allergy/AdvReac Type Severity Reaction Status Date / Time acetaminophen [From Lortab] Allergy Intermediate Verified 04/24/23 08:41 hydrocodone [From Lortab] Allergy Intermediate Verified 04/24/23 08:41 codeine AdvReac Severe Verified 04/24/23 08:41 hydromorphone [From Dilaudid] AdvReac Severe Verified 04/24/23 08:41 morphine AdvReac Severe Verified 04/24/23 08:41 oxycodone AdvReac Severe Verified 04/24/23 08:41 ondansetron [From Zofran] AdvReac Intermediate Verified 04/24/23 08:41 PFSH [facility] Disclaimer: The information contained in this section may have been updated after the patient was seen, as this information can be updated by other users. Medical History Anxiety and depression COPD (chronic obstructive pulmonary disease) GERD (gastroesophageal reflux disease) Hernia Hyperlipidemia Migraine headache Seizure disorder History of seizure in 2014, unable to provide further information. Records from [facility] requested Tremor History familial tremor. No significant improvement noticed with Topiramate Type 2 diabetes mellitus Urinary incontinence, mixed Surgical History H/O hernia repair H/O neck surgery H/O: hysterectomy History of bladder surgery History of cholecystectomy Hx of appendectomy Family History Other Cancer Diabetes Social History Smoking Status: Current every day smoker alcohol intake: never substance use type: denies use current occupational status: disabled Travel in the last 8 weeks: None household members: significant other housing: house marital status: ROS Obtained: Yes All systems reviewed & no additional complaints except as documented Physical Exam General General appearance: alert and in no apparent distress Head Head exam: atraumatic and normocephalic Eye Eye exam: Present normal appearance, PERRL and EOMI ENT ENT exam: Present normal oropharynx and normal external ear exam Neck Neck exam: Present normal inspection and full ROM Chest Chest inspection: Present normal inspection and symmetric chest wall rise; Absent tenderness Respiratory Respiratory exam: Present normal lung sounds bilaterally; Absent respiratory distress Cardiovascular Cardiovascular exam: Present regular rate and normal rhythm Abdominal Exam Abdominal exam: Present soft; Absent distention, tenderness or guarding Extremities Exam Extremities exam: Present normal inspection; Absent edema or joint swelling Back Exam Back exam: Present normal inspection; Absent tenderness Neurological Exam Neurological exam: Present alert and oriented X3; Absent motor sensory deficit Psychiatric Psychiatric exam: Present normal affect and normal mood Skin Skin exam: Present warm, dry and normal color Lymphatic Lymphatic Findings: no adenopathy Medical Decision Making Medical Records Medical records reviewed: Yes I reviewed the patient's medical records. Willie Inquiry Pt receiving controlled substance: No Willie was queried for this patient: No Vital Signs: 05/19/23 01:14 05/19/23 02:29 Temperature 98.0 F 98.0 F Temperature Source Oral Oral Pulse Rate 93 H Pulse Rate [Left Radial] 89 Respiratory Rate 20 18 Blood Pressure 132/74 Blood Pressure [Right Arm] 132/74 Blood Pressure Mean [Right Arm] 93 Blood Pressure Source Automatic Cuff Blood Pressure Source [Right Arm] Automatic Cuff Blood Pressure Position Sitting Blood Pressure Position [Right Arm] Sitting 02 Sat by Pulse Oximetry 95 Oxygen Delivery Method Room Air Room Air Lab Data Lab results reviewed: Yes I reviewed the patient's lab results. Lab Results 05/19/23 01:11: WBC 10.0, RBC 5.04, Hgb 13.0, Hct 40.9, MCV 81.2, MCH 25.8 L, MCHC 31.8, RDW 15.4, Plt Count 242, MPV 7.7, Neut % (Auto) 62.6, Lymph % (Auto) 27.9, [place] % (Auto) 5.2, Eos % (Auto) 3.4, Baso % (Auto) 0.9, Neut # (Auto) 6.2, Lymph # (Auto) 2.8, [place] # (Auto) 0.5, Eos # (Auto) 0.3, Baso # (Auto) 0.1, Sodium 138, Potassium 3.3 L, Chloride 108 H, Carbon Dioxide 26, Anion Gap 7.3, BUN 9, Creatinine 0.80, Estimated Creat Clear 58, Estimated GFR 72, Est GFR ( Amer) 87, Glucose 129 H, Calcium 9.3, Total Bilirubin 0.2, AST 41 H, ALT 37, Alkaline Phosphatase 62, Troponin I < 0.01, Total Protein 7.1, Albumin 3.8, Globulin 3.3 H, Albumin/Globulin Ratio 1.2 05/19/23 01:11 05/19/23 01:11 Orders (Tests/Meds): ED MEDICATIONS Discontinued Medications Generic Name Dose Route Start Last Admin Trade Name Freq PRN Reason Stop Dose Admin Belladonna Alkaloids 60 ml 05/19/23 01:10 05/19/23 01:19 Belladonna Alkaloids 60 Ml Ml PO 05/19/23 01:11 60 ml ONCE ONE Administration Enoxaparin Sodium 40 mg 05/19/23 09:00 Enoxaparin 40mg/0.4ml Syringe SQ 06/18/23 08:59 DAILY RAVEN Sodium Chloride 1,000 mls @ 100 mls/hr 05/19/23 01:30 05/19/23 01:58 Sod Chlor 0.9% 1000ml Bag IV 06/18/23 01:29 Not Given .Q10H RAVEN Iopamidol 100 ml 05/19/23 01:47 05/19/23 01:48 Iopamidol-370 (76%);100ml Bottle IV 05/19/23 01:48 100 ml ONCE ONE Administration Ketorolac Tromethamine 30 mg 05/19/23 01:27 Ketorolac 30mg/Ml Vial IV 05/24/23 01:26 Q6HP PRN Moderate Pain (4-6) Nicotine 21 mg 05/19/23 01:27 Nicotine 21mg/24hr Patch TD 06/18/23 01:26 DAILYP PRN Nicotine Cravings Nitroglycerin 0.4 mg 05/19/23 01:31 Nitroglycerin 0.4mg Sl Tablet SL 06/18/23 01:30 Q5MINP PRN Chest Pain Ondansetron HCl 4 mg 05/19/23 01:10 05/19/23 01:17 Ondansetron 4mg/2ml Vial IV 05/19/23 01:11 Not Given ONCE ONE Pantoprazole Sodium 40 mg 05/19/23 09:00 Pantoprazole 40mg Tablet PO 06/18/23 08:59 DAILY RAVEN Potassium Chloride 40 meq 05/19/23 01:33 05/19/23 01:59 Potassium Chloride 20meq Tab PO 05/19/23 01:34 Not Given ONCE ONE Promethazine HCl 25 mg 05/19/23 01:12 05/19/23 01:18 Promethazine Hcl 25mg/Ml 1ml Vial IV 05/19/23 01:13 25 mg ONCE ONE Administration Promethazine HCl 25 mg 05/19/23 01:27 Promethazine Hcl 25mg/Ml 1ml Vial IV 06/18/23 01:26 Q6HP PRN Nausea And Vomiting Sodium Chloride 25 ml 05/19/23 01:12 05/19/23 01:19 Sodium Chloride 0.9% 25ml Bag IV 05/19/23 01:13 25 ml ONCE ONE Administration Sodium Chloride 25 ml 05/19/23 01:27 05/19/23 01:59 Sodium Chloride 0.9% 25ml Bag IV 05/19/23 01:28 Not Given ONCE ONE Sodium Chloride 10 ml 05/19/23 01:47 05/19/23 01:48 Sodium Chloride 0.9% 10ml Syr (Rad Only) IV 05/19/23 01:48 10 ml ONCE ONE Administration ORDERS Category Date Time Status CTA Chest [CT angio chest - dissection] Stat Cat Scan 05/19/23 01:10 Taken CBC w/Auto Diff [Complete Blood Count Auto Diff] Stat Lab 05/19/23 01:11 Completed CMP [Comprehensive Metabolic Panel] Stat Lab 05/19/23 01:11 Completed Troponin I Q3H Lab 05/19/23 01:11 Completed ECG Data Tracing #1: I reviewed this ECG and interpreted as documented below: Sinus rhythm, rate of 89, no concerning ST or T wave changes, no evidence of arrhythmia. ECG initial impression date: 05/19/23 ECG initial impression time: 01:06 HEART Score History (anamnesis): Moderately suspicious ECG: Normal Age: >65 years Risk factors: 1-2 risk factors Troponin: </= normal limit HEART Score: 4 Medical Decision Narrative: 68-year-old female with history of COPD presents with roughly 12 hours of chest pain radiating to central back. History was obtained interactive discussion with patient. On arrival, patient is [afebrile, hemodynamically stable, satting appropriately, alert, oriented x4, GCS 15], moving all extremities spontaneously. Full physical exam performed and significant for no significant physical exam abnormalities Differential includes but is not limited to ACS, PE, aortic dissection, musculoskeletal pain, stomach/esophageal pathology. Patient took full dose aspirin prior to arrival. She was given IV Phenergan and 1 L fluid bolus in ED for symptomatic management and correction of underlying abnormalities. Workup initiated including CTA chest, CBC CMP troponin EKG. On re-evaluation, patient [remains afebrile, HD stable.] Patient belched and thereafter reported 100% symptom resolution. Laboratory workup independently interpreted by me and significant for initial negative troponin, normal renal function, no leukocytosis. Imaging independently interpreted by me and significant for no evidence of PE or aortic dissection. See radiology read for full review of final results. EKG independently interpreted by me and significant for normal sinus rhythm as documented above. Given patient history, exam and workup, patient's presentation most likely represents chest pain of uncertain etiology. Prior to patient's CT results or repeat troponin, patient reports that she feels completely fine and would like to leave. I discussed with her that she would be leaving AGAINST MEDICAL ADVICE and spoke with her about the risks of not waiting for CT results or second troponin. She elected to leave AMA despite this. She was given return precautions. After patient was discharged, formal CT reads showed no evidence of emergent pathology.. Procedures Risk/Benefits of Procedure(s) Were Explained: Yes Critical Care Critical Care Time Critical Care Time: No
--- NOTE | 2023-05-19 01:10 | CT_ITS ---
PROCEDURE INFORMATION: Exam: CTA Chest With Contrast Exam date and time: 05/19/2023 1:41 AM Age: 68 years old Clinical indication: Pain; Chest pressure; Additional info: Chest pain, midline back pain TECHNIQUE: Imaging protocol: Computed tomographic angiography of the chest with contrast. Exam focused on the arteries. 3D rendering (Not supervised by radiologist): MIP and/or 3D reconstructed images were created by the technologist. Radiation optimization: All CT scans at this facility use at least one of these dose optimization techniques: automated exposure control; mA and/or kV adjustment per patient size (includes targeted exams where dose is matched to clinical indication); or iterative reconstruction. Contrast material: ISOVUE; Contrast volume: 100 ml; Contrast route: INTRAVENOUS (IV); COMPARISON: 1. CT ABDOMEN PELVIS W CON 03/26/2023 10:23 PM 2. CR XR CERVICAL SPINE 3V 04/27/2023 9:41 AM FINDINGS: Pulmonary arteries: Normal. No pulmonary emboli. Aorta: Unremarkable. No aortic aneurysm. No aortic dissection. Lungs: There are scattered calcified granulomas in the lungs which most likely reflect prior granulomatous disease. Pleural spaces: Unremarkable. No pneumothorax. No pleural effusion. Heart: Unremarkable. No cardiomegaly. No pericardial effusion. Lymph nodes: There are calcified mediastinal lymph nodes likely reflecting prior granulomatous disease. Gallbladder and bile ducts: The patient is status post cholecystectomy. Bones/joints: Unremarkable. No acute fracture. Soft tissues: Unremarkable. IMPRESSION: No evidence for clinically relevant pulmonary arterial filling defect, dense parenchymal consolidation, pleural effusion, or pneumothorax. No acute intrathoracic anomaly.
[2023-05-19 01:14] VITALS: BP 132/74; PULSE 89; RESP 20; TEMP 36.7; O2SAT 95; BMI 25.2
[2023-05-19 01:18] LABS: Basophils # 0.1 K/mm3 (0-0.2); Basophils % 0.9 % (0.1-2.0); Eosinophils # 0.3 K/mm3 (0.0-0.4); Eosinophils % 3.4 % (0.1-12.0); Hematocrit 40.9 % (37.0-47.0); Lymphocytes # 2.8 K/mm3 (0.7-4.5); Lymphocytes % 27.9 % (10-50); Mean Corpuscular HGB Conc 31.8 g/dL (31.8-35.4); Mean Corpuscular Hemoglobin 25.8 pg (27.0-31.2); Mean Corpuscular Volume 81.2 fl (81-99); Mean Platelet Volume 7.7 fl (7.4-10.4); Monocytes # 0.5 K/mm3 (0.1-1.0); Monocytes % 5.2 % (1.7-9.3); Neutrophils # 6.2 K/mm3 (1.8-7.8); Neutrophils % 62.6 % (37.0-80.0); Platelet Count 242 K/mm3 (142-424); Red Blood Count 5.04 M/mm3 (4.20-5.40); Red Cell Distribution Width 15.4 % (11.5-17.5)
[2023-05-19] MEDS: PROMETHAZINE HCL 25MG/ML 1ML VIAL 25 MG IV (01:18)
[2023-05-19] MEDS: BELLADONNA ALKALOIDS 60 ML ML PO (01:19)
[2023-05-19] MEDS: SODIUM CHLORIDE 0.9% 25ML BAG 25 ML IV (01:19)
[2023-05-19 01:21] LABS: Chloride 108 mmol/L (98-107)
[2023-05-19 01:22] LABS: Potassium 3.3 mmoL/L (3.5-5.1); Sodium 138 mmol/L (136-145)
[2023-05-19 01:24] LABS: Alanine Aminotransferase 37 U/L (12-78); Aspartate Amino Transferase 41 U/L (14-36); Blood Urea Nitrogen 9 mg/dl (7-17); Creatinine Clearance Estimated 58 mL/min (50-200); Estimated Glomerular Filt Rate 72 ml/min (>60); GFR (African American) 87 ML/MIN (>60)
[2023-05-19 01:25] LABS: Albumin Level 3.8 g/dl (3.5-5.0); Albumin/Globulin Ratio 1.2 (1.1-1.8); Alkaline Phosphatase 62 U/L (38-126); Anion Gap 7.3 mEq/L (5-15); Bilirubin,Total 0.2 mg/dl (0.2-1.3); Calcium 9.3 mg/dl (8.4-10.2); Carbon Dioxide 26 mmol/L (22.0-30.0); Globulin 3.3 g/dL (1.3-3.2); Glucose 129 mg/dl (74-100); Total Protein,Serum 7.1 g/dl (6.3-8.2)
--- NOTE | 2023-05-19 01:31 | EXP.HP ---
History of Present Illness *Admission Date: 05/19/23 [facility] Disclaimer: The information contained in this section may have been updated after the patient was seen, as this information can be updated by other users. Medical History Anxiety and depression COPD (chronic obstructive pulmonary disease) GERD (gastroesophageal reflux disease) Hernia Hyperlipidemia Migraine headache Seizure disorder History of seizure in 2015, unable to provide further information. Records from [facility] requested Tremor History familial tremor. No significant improvement noticed with Topiramate Type 2 diabetes mellitus Urinary incontinence, mixed Surgical History H/O hernia repair H/O neck surgery H/O: hysterectomy History of bladder surgery History of cholecystectomy Hx of appendectomy Family History Other Cancer Diabetes Social History Smoking Status: Current every day smoker alcohol intake: never substance use type: denies use current occupational status: disabled Travel in the last 8 weeks: None household members: significant other housing: house marital status: Meds Home Medications and Allergies Home Medications Medication Instructions Recorded Confirmed Type atorvastatin 80 mg tablet 80 mg PO DAILY #90 tabs 01/24/22 05/04/23 Rx clonazepam 1 mg tablet (Klonopin) 1 mg PO TID 01/24/22 05/04/23 History sertraline 100 mg tablet 100 mg PO DAILY #90 tabs 01/24/22 05/04/23 Rx tizanidine 4 mg tablet 4 mg PO HS PRN muscle spasticity 04/24/23 05/04/23 Rx #30 tabs famotidine 20 mg tablet 20 mg PO BID 10 days #20 tabs 05/04/23 Rx methylprednisolone 4 mg tablets in 4 mg PO DIRECTED 6 days #21 tabs 05/04/23 Rx a dose pack promethazine 25 mg tablet 25 mg PO TID PRN nausea and 05/04/23 Rx vomiting #20 tabs triamcinolone acetonide 0.1 % 1 applic topical BID PRN itching 05/04/23 Rx topical cream #30 grams New Prescriptions to Start Prescriptions: Allergies Allergy/AdvReac Type Severity Reaction Status Date / Time acetaminophen [From Lortab] Allergy Intermediate Verified 04/24/23 08:41 hydrocodone [From Lortab] Allergy Intermediate Verified 04/24/23 08:41 codeine AdvReac Severe Verified 04/24/23 08:41 hydromorphone [From Dilaudid] AdvReac Severe Verified 04/24/23 08:41 morphine AdvReac Severe Verified 04/24/23 08:41 oxycodone AdvReac Severe Verified 04/24/23 08:41 ondansetron [From Zofran] AdvReac Intermediate Verified 04/24/23 08:41 Exam Data for Last 24 hours Vital signs and Labs for Last 24 Hours: Temp Pulse Resp BP Pulse Ox O2 Del Method 98.0 F 89 20 132/74 95 Room Air 05/19/23 01:14 05/19/23 01:14 05/19/23 01:14 05/19/23 01:14 05/19/23 01:14 05/19/23 01:14 Laboratory Results - last 24 hr 05/19/23 01:11: WBC 10.0, RBC 5.04, Hgb 13.0, Hct 40.9, MCV 81.2, MCH 25.8 L, MCHC 31.8, RDW 15.4, Plt Count 242, MPV 7.7, Neut % (Auto) 62.6, Lymph % (Auto) 27.9, [place] % (Auto) 5.2, Eos % (Auto) 3.4, Baso % (Auto) 0.9, Neut # (Auto) 6.2, Lymph # (Auto) 2.8, [place] # (Auto) 0.5, Eos # (Auto) 0.3, Baso # (Auto) 0.1, Sodium 138, Potassium 3.3 L, Chloride 108 H, Carbon Dioxide 26, Anion Gap 7.3, BUN 9, Creatinine 0.80, Estimated Creat Clear 58, Estimated GFR 72, Est GFR ( Amer) 87, Glucose 129 H, Calcium 9.3, Total Bilirubin 0.2, AST 41 H, ALT 37, Alkaline Phosphatase 62, Total Protein 7.1, Albumin 3.8, Globulin 3.3 H, Albumin/Globulin Ratio 1.2 I & O for Last 24 hours: Intake & Output 05/16/23 05/17/23 05/18/23 05/19/23 23:59 23:59 23:59 23:59 Weight 66.678 kg
[2023-05-19 01:37] LABS: Troponin I < 0.01 ng/ml (0.00-0.034)
[2023-05-19] MEDS: IOPAMIDOL-370 (76%);100ML BOTTLE 100 ML IV (01:48)
[2023-05-19] MEDS: SODIUM CHLORIDE 0.9% 10ML SYR (RAD ONLY) 10 ML IV (01:48)
--- NOTE | 2023-05-19 02:26 | PC.NURSE ---
pt wanting to leave before CT scan is back. Pt signing out ama. pt educated and verbalizes understanding of risks of leaving hospital against medical advice.
[2023-05-19 02:29] VITALS: BP 132/74; PULSE 93; RESP 18; TEMP 36.7; O2SAT 96
== END 2023-05-19 02:31 | disposition left against medical advice (07) ==
PROVIDERS: Emergency Provider Emergency Medicine
DX: R07.9 Chest pain, unspecified (principal); M54.9 Dorsalgia, unspecified; J44.9 Chronic obstructive pulmonary disease, unspecified; E78.5 Hyperlipidemia, unspecified; E11.9 Type 2 diabetes mellitus without complications; G40.909 Epilepsy, unspecified, not intractable, without status epilepticus; K21.9 Gastro-esophageal reflux disease without esophagitis; F17.200 Nicotine dependence, unspecified, uncomplicated
CPT/HCPCS: 71275; 80053; 84484; 85025; 93005; 96374; 96375; 99285; Q9967

== ENCOUNTER 2023-08-11 12:25 | Outpatient (CLI) | payer MEDICARE, MEDICAID, SELFPAY ==
[2023-08-11 12:48] VITALS: BP 122/66; PULSE 93; RESP 18; TEMP 36.6; O2SAT 98
[2023-08-11] MEDS: SODIUM CHLORIDE 0.9% 50ML BAG 50 ML IV (12:48)
[2023-08-11] MEDS: EPTINEZUMAB JJMR IV (12:49)
[2023-08-11] MEDS: SODIUM CHLORIDE 0.9% 10ML FLUSH SYRINGE 10 ML IV (12:49)
[2023-08-11] MEDS: SODIUM CHLORIDE 0.9% IV (12:49)
[2023-08-11 13:30] VITALS: BP 118/69; PULSE 91; RESP 18; O2SAT 98
[2023-08-11 14:14] VITALS: BP 120/63; PULSE 96; RESP 18; O2SAT 98
== END 2023-08-11 14:17 | disposition home or self-care (01) ==
LOC: INF 12:26
PROVIDERS: PCP Nurse Practitioner Family; Visit Provider Specialist
DX: G43.019 Migraine without aura, intractable, without status migrainosus (principal)
CPT/HCPCS: 96365; J3032

== ENCOUNTER 2023-08-29 12:41 | Outpatient (CLI) | payer MEDICARE, MEDICAID, SELFPAY ==
--- NOTE | 2023-08-29 12:52 | CT_ITS ---
FINAL REPORT TECHNIQUE: Multiple axial CT sections were performed from the foramen magnum to the vertex. Coronal reformatted images were also obtained. Precontrast and postcontrast injection images were obtained. This study was performed with technique to keep radiation doses as low as reasonably achievable, (ALARA). Individualized dose reduction techniques using automated exposure control or adjustment of mA and/or kV according to the patient size were employed. CLINICAL HISTORY: Head contusion 2x FINDINGS: There is atrophy with mild chronic ischemic changes. There is no evidence of hemorrhage. No masses are identified. No extra-axial fluid collection is seen. The sinuses are normal. No osseous abnormality is seen on the bone window images. Postcontrast images demonstrate no abnormal enhancement. IMPRESSION: No acute intracranial abnormality. Reviewed, Interpreted and Dictated by Chester Ceja III, MD Transcribed by Jojo Goddard Authenticated and [facility]
[2023-08-29 13:27] LABS: Blood Urea Nitrogen 12 mg/dl (7-17); Estimated Glomerular Filt Rate 84 ml/min (>60); GFR (African American) 101 ML/MIN (>60)
[2023-08-29] MEDS: SODIUM CHLORIDE 0.9% 10ML SYR (RAD ONLY) 10 ML IV (13:58)
[2023-08-29] MEDS: IOPAMIDOL-300 (61%) 100ML VIAL 100 ML IV (13:58)
== END 2023-08-29 23:59 | disposition home or self-care (01) ==
LOC: RAD 12:42
PROVIDERS: Visit Provider Specialist
DX: G43.019 Migraine without aura, intractable, without status migrainosus (principal); M54.2 Cervicalgia
CPT/HCPCS: 36415; 70470; 82565; 84520; Q9967

== ENCOUNTER 2023-09-02 19:10 | Emergency (ER) | payer MEDICARE, MEDICAID, SELFPAY ==
--- NOTE | 2023-09-02 19:10 | ECG_ITS ---
APPROVED REPORT Exam: Resting ECG HR:115 bpm ECG Measurements Heart Rate 115 AXES CA 112 P 71 QRSd 80 QRS 57 QT 351 T 78 QTc 419 Conclusion SINUS TACHYCARDIA WITH SHORT CA INTERVAL ABNORMAL RHYTHM ECG Electronically signed by : TANIA ESTEVEZ, 09/02/2023 21:21:46
[2023-09-02 19:11] VITALS: BP 110/57; PULSE 113; RESP 26; TEMP 37; O2SAT 97; BMI 24.9
--- NOTE | 2023-09-02 19:14 | XR_ITS ---
PROCEDURE INFORMATION: Exam: XR Chest Exam date and time: 09/02/2023 7:22 PM Age: 68 years old Clinical indication: Other: Chest pain TECHNIQUE: Imaging protocol: Radiologic exam of the chest. Views: 1 view. COMPARISON: CT ANGIO CHEST 05/19/2023 1:41 AM FINDINGS: Lungs: Small atelectasis is noted of the left lung base. Pleural spaces: No large effusion or pneumothorax. Heart/Mediastinum: Stable cardiac and mediastinal contours. Bones/joints: There is partially visualized cervical spine surgical hardware. IMPRESSION: No dense parenchymal consolidation, pleural effusion, or pneumothorax.
[2023-09-02 19:21] VITALS: PULSE 113
[2023-09-02 19:21] LABS: Basophils # 0.1 K/mm3 (0-0.2); Basophils % 0.3 % (0.1-2.0); Eosinophils # 0.3 K/mm3 (0.0-0.4); Eosinophils % 1.7 % (0.1-12.0); Hematocrit 39.9 % (37.0-47.0); Lymphocytes # 2.8 K/mm3 (0.7-4.5); Lymphocytes % 17.7 % (10-50); Mean Corpuscular HGB Conc 32.5 g/dL (31.8-35.4); Mean Corpuscular Hemoglobin 25.2 pg (27.0-31.2); Mean Corpuscular Volume 77.7 fl (81-99); Mean Platelet Volume 7.4 fl (7.4-10.4); Monocytes # 0.7 K/mm3 (0.1-1.0); Monocytes % 4.5 % (1.7-9.3); Neutrophils # 11.7 K/mm3 (1.8-7.8); Neutrophils % 75.7 % (37.0-80.0); Platelet Count 244 K/mm3 (142-424); Red Blood Count 5.14 M/mm3 (4.20-5.40); Red Cell Distribution Width 15.7 % (11.5-17.5); White Blood Count 15.5 K/mm3 (4.8-10.8)
[2023-09-02 19:23] LABS: MANUAL DIFFERENTIAL MANUAL DIFFERENTIAL (MANUAL DIFF)
[2023-09-02 19:26] LABS: Chloride 108 mmol/L (98-107); Sodium 139 mmol/L (136-145)
[2023-09-02 19:28] LABS: Alanine Aminotransferase 36 U/L (12-78); Aspartate Amino Transferase 29 U/L (14-36); Blood Urea Nitrogen 4 mg/dl (7-17); Creatinine Clearance Estimated 57 mL/min (50-200); Estimated Glomerular Filt Rate 123 ml/min (>60); GFR (African American) 149 ML/MIN (>60)
[2023-09-02 19:29] LABS: Albumin Level 3.7 g/dl (3.5-5.0); Albumin/Globulin Ratio 1.1 (1.1-1.8); Alkaline Phosphatase 55 U/L (38-126); Bilirubin,Total 0.3 mg/dl (0.2-1.3); Calcium 9.1 mg/dl (8.4-10.2); Carbon Dioxide 25 mmol/L (22.0-30.0); Globulin 3.5 g/dL (1.3-3.2); Glucose 198 mg/dl (74-100); Lipase 245 U/L (23-300); Total Protein,Serum 7.2 g/dl (6.3-8.2)
[2023-09-02 19:30] VITALS: BP 146/78; PULSE 97; RESP 19; O2SAT 95
[2023-09-02 19:35] LABS: D-Dimer 0.34 ug/mL (0.0-0.5)
[2023-09-02 19:37] LABS: Activated Partial Thrombo Time 27.8 seconds (22.8-30.6); INR 0.86 (0.9-1.1); Prothrombin Time 9.8 seconds (10.1-12.5)
--- NOTE | 2023-09-02 19:38 | CT_ITS ---
PROCEDURE INFORMATION: Exam: CTA Chest With Contrast CTA Abdomen and Pelvis With Contrast Exam date and time: 09/02/2023 8:04 PM Age: 68 years old Clinical indication: Other: Chest pain radiates; Additional info: Chest pain rad to back TECHNIQUE: Imaging protocol: Computed tomographic angiography of the chest with contrast. Exam focused on the arteries. Computed tomographic angiography of the abdomen and pelvis with contrast. Exam focused on the arteries. 3D rendering (Not supervised by radiologist): MIP and/or 3D reconstructed images were created by the technologist. Radiation optimization: All CT scans at this facility use at least one of these dose optimization techniques: automated exposure control; mA and/or kV adjustment per patient size (includes targeted exams where dose is matched to clinical indication); or iterative reconstruction. Contrast material: ISOVUE; Contrast volume: 100 ml; Contrast route: INTRAVENOUS (IV); COMPARISON: 1. CT ABDOMEN PELVIS W CON 03/26/2023 10:[address] ANGIO CHEST 09/02/2023 8:04 PM FINDINGS: VASCULATURE: Pulmonary arteries: Normal. No pulmonary emboli. Aorta: There is atherosclerotic disease of the visualized aorta and its major branch vessels. The aorta is normal caliber without focal abnormality. No dissection or aneurysm. Celiac trunk and mesenteric arteries: No occlusion or significant stenosis. Renal arteries: No occlusion or significant stenosis. Right iliac arteries: No occlusion or significant stenosis. Left iliac arteries: No occlusion or significant stenosis. CHEST: Lungs: Scattered areas of bronchial wall thickening which are likely chronic inflammatory. A few areas of subpleural reticulation are noted, nonspecific. There is some atelectasis at the left lung base. There are scattered calcified granulomas in the lungs which most likely reflect prior granulomatous disease. Pleural spaces: Unremarkable. No pneumothorax. No pleural effusion. Heart: Unremarkable. No cardiomegaly. No pericardial effusion. Coronary arteries: There is mild coronary atherosclerotic disease/calcification although evaluation is limited secondary to the non gated nature of the study. ABDOMEN AND PELVIS: Liver: No mass. Gallbladder and biliary ducts: The patient is status post cholecystectomy. Pancreas: There is fatty replacement of the pancreas. Spleen: Unremarkable. No splenomegaly. Adrenal glands: Unremarkable. No mass. Kidneys and ureters: Unremarkable. No solid mass. No hydronephrosis. Stomach and bowel: Unremarkable. No obstruction. No mucosal thickening. Appendix: No evidence of appendicitis. Intraperitoneal space: There is a mesh noted right anterior abdominal. Urinary bladder: Unremarkable. No mass. Reproductive: The patient has undergone prior hysterectomy. Lymph nodes: There are mildly prominent but nonenlarged and nonspecific retroperitoneal nodes. Mildly prominent nodes in the central mesentery, nonspecific. There are calcified mediastinal lymph nodes likely reflecting prior granulomatous disease. Bones/joints: There is diffuse degenerative disease of the visualized osseous structures. There is partially visualized cervical spine surgical hardware. There is exaggeration of the thoracic kyphosis. Soft tissues: There are postsurgical changes of the ventral abdominal wall. IMPRESSION: 1. The aorta is normal caliber without focal abnormality. No dissection or aneurysm. 2. No dense parenchymal consolidation, pleural effusion, or pneumothorax. 3. No acute inflammatory or obstructive process is identified. Incidental findings are described within the findings section.
[2023-09-02 19:41] LABS: Troponin I < 0.01 ng/ml (0.00-0.034)
[2023-09-02] MEDS: BELLADONNA ALKALOIDS 60 ML ML PO (19:45)
[2023-09-02] MEDS: diazePAM 5MG TABLET 5 MG PO (19:45)
[2023-09-02 20:00] VITALS: BP 131/71; PULSE 91; RESP 15; O2SAT 94
[2023-09-02 20:03] LABS: Eosinophils % 1 % (0-3); Lymphocytes % 19 % (10-50); Monocytes % 5 % (2-9); Neutrophils % 75 % (42-76); Total Cells Counted 100
[2023-09-02 20:04] LABS: Hypochromasia 1+; Microcytosis 1+; Platelet Estimate Normal
[2023-09-02] MEDS: IOPAMIDOL-370 (76%);100ML BOTTLE 100 ML IV (20:09)
[2023-09-02] MEDS: SODIUM CHLORIDE 0.9% 10ML SYR (RAD ONLY) 10 ML IV (20:09)
[2023-09-02] MEDS: 0.9 % SODIUM CHLORIDE 50 ML VIAL IV (20:09)
--- NOTE | 2023-09-02 20:10 | ED_ITS ---
Discharge Plan Disposition Patient Disposition: Home, Self-Care Condition: Good Prescriptions Prescriptions: New alum-mag hydroxide-simeth [Maalox Advanced] 200-200-20 mg/5 mL suspension 5 ml PO Q3H PRN (Reason: dyspepsia) Qty: 3000 0RF No Action clonazepam [Klonopin] 1 mg tablet 1 mg PO TID sertraline 100 mg tablet 100 mg PO DAILY Qty: 90 3RF atorvastatin 80 mg tablet 80 mg PO DAILY Qty: 90 3RF tizanidine 4 mg tablet 4 mg PO HS MDD 4 mg PRN (Reason: muscle spasticity) Qty: 30 5RF ropinirole 2 mg tablet 2 mg PO HSP PRN (Reason: restless legs) topiramate 100 mg tablet 100 mg PO DAILYP PRN (Reason: migraines) Referrals Follow up/Referrals: Livier Crane APRN [Primary Care Provider] - See instructions Activity Restrictions/Add. Instructions Additional Instructions/Restrictions: You were evaluated in the emergency department today. At this time, your workup is reassuring. I recommend close follow-up with your primary care provider. Return to the emergency department for new or worsening symptoms. Clinical Impressions Clinical Impression: Chest pain, Indigestion Instructions Patient Instructions: DI for Atypical Chest Pain, DI for Esophageal Dysphagia Discharge ED Provider: Cheyenne Valencia HPI General Chief Complaint: Chest Pain Stated Complaint: Chest pain Time Seen by Provider: 09/02/23 19:11 Mode of Arrival: Ambulatory Source of Information: Patient Limitations: No Limitations Description of Symptoms (Recalled from ER Triage Doc. by RN): pt is very anxious appearing during triage and complaining of midsternal chest pain that radiates into right shoulder and into back, pt states the pain began this morning at 1000 and has gotten wrose. pt states its stabbing in nature and pt is very uneasy and restless in the bed. History of Present Illness HPI narrative: This patient is a 68-year-old female with a history of mood disorder, recurrent chest pain, migraines, seizure disorder, tobacco use disorder, restless leg syndrome, anxiety and depression, hypertension, hyperlipidemia, and type 2 diabetes presenting to the emergency department for evaluation with concern for chest pain. Patient states that she is having midsternal chest pain that radiates into her shoulder and back. She states that it started this morning around 10 AM and has gotten worse. She feels like she needs to burp but cannot. She states that she tried to eat and drink to see if she can make her self burp, but its only made the symptoms worse and does not help. The pain is stabbing in nature. She is very anxious appearing upon arrival and is rocking back and forth. Related Data Home Medications Medication Instructions Recorded Confirmed clonazepam 1 mg tablet (Klonopin) 1 mg PO TID 01/24/22 08/11/23 ropinirole 2 mg tablet 2 mg PO HSP PRN restless legs 07/31/23 08/11/23 topiramate 100 mg tablet 100 mg PO DAILYP PRN migraines 07/31/23 08/11/23 Previous Rx's Medication Instructions Recorded atorvastatin 80 mg tablet 80 mg PO DAILY #90 tabs 01/24/22 sertraline 100 mg tablet 100 mg PO DAILY #90 tabs 01/24/22 tizanidine 4 mg tablet 4 mg PO HS PRN muscle spasticity 04/24/23 #30 tabs aluminum-mag hydroxide-simethicone 5 ml PO Q3H PRN dyspepsia #3,000 mL 09/02/23 200 mg-200 mg-20 mg/5 mL oral susp (Maalox Advanced) Allergies Allergy/AdvReac Type Severity Reaction Status Date / Time acetaminophen [From Lortab] Allergy Intermediate Verified 08/11/23 13:05 hydrocodone [From Lortab] Allergy Intermediate Verified 08/11/23 13:05 codeine AdvReac Severe Verified 08/11/23 13:05 hydromorphone [From Dilaudid] AdvReac Severe Verified 08/11/23 13:05 morphine AdvReac Severe Verified 08/11/23 13:05 oxycodone AdvReac Severe Verified 08/11/23 13:05 ondansetron [From Zofran] AdvReac Intermediate Verified 08/11/23 13:05 PFSH PFSH Disclaimer: The information contained in this section may have been updated after the patient was seen, as this information can be updated by other users. Medical History Seizure disorder Tremor Hernia Urinary incontinence, mixed GERD (gastroesophageal reflux disease) Anxiety and depression Type 2 diabetes mellitus COPD (chronic obstructive pulmonary disease) Hyperlipidemia Migraine headache Surgical History H/O hernia repair H/O: hysterectomy History of cholecystectomy Hx of appendectomy History of bladder surgery H/O neck surgery Family History Other Cancer Diabetes Social History Smoking Status: Current every day smoker alcohol intake: never substance use type: denies use current occupational status: disabled Travel in the last 8 weeks: None household members: significant other housing: house marital status: ROS Obtained: Yes All systems reviewed & no additional complaints except as documented Physical Exam General General appearance: alert and anxious Head Head exam: atraumatic and normocephalic Eye Eye exam: Present normal appearance, PERRL and EOMI ENT ENT exam: Present normal exam, normal oropharynx, mucous membranes moist and normal external ear exam Neck Neck exam: Present normal inspection, full ROM and trachea midline; Absent tenderness Chest Chest inspection: Present normal inspection and symmetric chest wall rise; Absent tenderness Respiratory Respiratory exam: Present normal lung sounds bilaterally; Absent respiratory distress, wheezes, stridor or accessory muscle use Cardiovascular Cardiovascular exam: Present normal rhythm and tachycardia Abdominal Exam Abdominal exam: Present soft; Absent distention, tenderness or guarding Extremities Exam Extremities exam: Present normal inspection, full ROM and normal capillary refill; Absent tenderness or edema Back Exam Back exam: Present normal inspection and full ROM; Absent tenderness Neurological Exam Neurological exam: Present alert, oriented X3, CN II-XII intact and normal gait; Absent motor sensory deficit Psychiatric Psychiatric exam: Present anxious Skin Skin exam: Present warm and dry HEART Score HEART Score HEART Score assessment performed?: Yes History (anamnesis): Slightly suspicious ECG: Normal Age: >65 years Risk factors: 1-2 risk factors Troponin: </= normal limit HEART Score: 3 Critical Care Critical Care Time Critical Care Time: No Medical Decision Making Medical Records Medical records reviewed: Yes I reviewed the patient's medical records. Willie Inquiry Pt receiving controlled substance: No Vital Signs Vital Signs: 09/02/23 19:11 09/02/23 19:21 09/02/23 19:30 Temperature 98.6 F Temperature Source Oral Pulse Rate 113 H 97 H Pulse Rate [Right Radial] 113 H Respiratory Rate 26 H 19 Blood Pressure 146/78 H Blood Pressure [Right Arm] 110/57 L Blood Pressure Mean [Right Arm] 74 Blood Pressure Source Blood Pressure Position 02 Sat by Pulse Oximetry 97 95 Oxygen Delivery Method Room Air Room Air 09/02/23 20:00 09/02/23 20:30 09/02/23 21:37 Temperature 97.9 F Temperature Source Oral Pulse Rate 91 H 97 H 84 Pulse Rate [Right Radial] Respiratory Rate 15 16 15 Blood Pressure 131/71 133/63 121/63 Blood Pressure [Right Arm] Blood Pressure Mean [Right Arm] Blood Pressure Source Automatic Cuff Blood Pressure Position Sitting 02 Sat by Pulse Oximetry 94 L 94 L Oxygen Delivery Method Room Air Room Air Room Air Lab Data Labs: Lab Results 09/02/23 19:12: WBC 15.5 H, RBC 5.14, Hgb 13.0, Hct 39.9, MCV 77.7 L, MCH 25.2 L , MCHC 32.5, RDW 15.7, Plt Count 244, MPV 7.4, Neut % (Auto) 75.7, Lymph % (Auto) 17.7, [place] % (Auto) 4.5, Eos % (Auto) 1.7, Baso % (Auto) 0.3, Neut # (Auto) 11.7 H, Lymph # (Auto) 2.8, [place] # (Auto) 0.7, Eos # (Auto) 0.3, Baso # (Auto) 0.1, Total Counted 100, Neutrophils % (Manual) 75, Lymphocytes % (Manual) 19, Monocytes % (Manual) 5, Eosinophils % (Manual) 1, Platelet Estimate Normal, Hypochromasia 1+, Microcytosis 1+, PT 9.8 L, INR 0.86 L, APTT 27.8, D-Dimer 0.34, Sodium 139, Potassium 4.0, Chloride 108 H, Carbon Dioxide 25, Anion Gap 10.0, BUN 4 L, Creatinine 0.50 L, Estimated Creat Clear 57, Estimated GFR 123, Est GFR ( Amer) 149, Glucose 198 H, Calcium 9.1, Total Bilirubin 0.3, AST 29, ALT 36, Alkaline Phosphatase 55, Troponin I < 0.01, Total Protein 7.2, Albumin 3.7, Globulin 3.5 H, Albumin/Globulin Ratio 1.1, Lipase 245 09/02/23 19:12 09/02/23 19:12 Response Orders (Tests/Meds): ED MEDICATIONS Discontinued Medications Generic Name Dose Route Start Last Admin Trade Name Joyce PRN Reason Stop Dose Admin Belladonna Alkaloids 60 ml 09/02/23 19:38 09/02/23 19:45 Belladonna Alkaloids 60 Ml Ml PO 09/02/23 19:39 60 ml ONCE ONE Administration Diazepam 5 mg 09/02/23 19:38 09/02/23 19:45 Diazepam 5mg Tablet PO 09/02/23 19:39 5 mg ONCE ONE Administration Iopamidol 100 ml 09/02/23 20:07 09/02/23 20:09 Iopamidol-370 (76%);100ml Bottle IV 09/02/23 20:08 100 ml ONCE ONE Administration Ketorolac Tromethamine 15 mg 09/02/23 20:19 09/02/23 20:36 Ketorolac 30mg/Ml Vial IV 09/02/23 20:20 15 mg ONCE ONE Administration Sodium Chloride 50 ml 09/02/23 20:07 09/02/23 20:09 0.9 % Sodium Chloride 50 Ml Vial IV 09/02/23 20:08 50 ml ONCE ONE Administration Sodium Chloride 10 ml 09/02/23 20:07 09/02/23 20:09 Sodium Chloride 0.9% 10ml Syr (Rad Only) IV 09/02/23 20:08 10 ml ONCE ONE Administration ORDERS Category Date Time Status CT angio abdomen pelvis Stat Cat Scan 09/02/23 19:[address] angio chest - dissection Stat Cat Scan 09/02/23 19:38 Completed CXR --portable [XR chest portable] Stat Exams 09/02/23 19:14 Completed Activated Partial Thrombo Time Stat Lab 09/02/23 19:12 Completed Complete Blood Count Auto Diff Stat Lab 09/02/23 19:12 Completed Comprehensive Metabolic Panel Stat Lab 09/02/23 19:12 Completed D-Dimer Stat Lab 09/02/23 19:12 Completed Lipase Stat Lab 09/02/23 19:12 Completed Prothrombin Time INR Stat Lab 09/02/23 19:12 Completed Troponin I Stat Lab 09/02/23 19:12 Completed ECG Data Tracing #1: Attestation: I reviewed this ECG and interpreted as documented below: ECG Narrative: Sinus tachycardia with a ventricular rate of [address] changes concerning for ischemia. Normal axis. ECG initial impression date: 09/02/23 ECG initial impression time: 19:11 MDM Narrative Medical Decision Narrative: In summary, this patient is a 68-year-old female presenting to the Emergency Department for evaluation of chest pain and feeling that she needs to burp but cannot. Differential diagnoses considered include but are not limited to ACS, GERD, dysrhythmia, esophagitis, hiatal hernia, anxiety, aortic pathology. Ruling out the most morbid conditions drove assessment. It should be noted patient's history includes anxiety which is not at goal therapy. This complicates all aspects of care by increasing patient's risk for morbidity. On exam, the patient is very anxious appearing, rocking back and forth. She is tachycardic and tachypneic, but otherwise vitals are reassuring. Workup included CBC, CMP, lipase, troponin, PT, PTT, CTA chest/abdomen/pelvis, and EKG. EKG obtained demonstrates sinus tachycardia but is otherwise reassuring. Patient was given GI cocktail and oral Valium for symptomatic improvement. I independently interpreted CT scan prior to the radiologist read and noted no acute aortic pathology. Please see their read for final interpretation. Labs were obtained that demonstrated mild leukocytosis but negative troponin. Labs are otherwise reassuring. On reassessment, patient had some improvement after administration of interventions above. She states the GI cocktail helped a lot, but she feels like the Valium does not do anything for her. She is requesting Toradol, which did significantly improve her symptoms. She notes that she feels like this is related to gas and acid reflux. I advised her we could keep her here to check a second troponin to rule out cardiac pathology, however she declined. She says she is feeling better and is ready to go home. She requests GI cocktail to go home with, however advised her that she follow-up closely with her primary care provider for reassessment of these issues. At this time, patient was deemed to be appropriate for discharge. Strict return precautions were given and the patient was discharged after all questions were answered.
[2023-09-02 20:30] VITALS: BP 133/63; PULSE 97; RESP 16; O2SAT 94
[2023-09-02] MEDS: KETOROLAC 30MG/ML VIAL 15 MG IV (20:36)
[2023-09-02 21:37] VITALS: BP 121/63; PULSE 84; RESP 15; TEMP 36.6; O2SAT 96
== END 2023-09-02 21:41 | disposition home or self-care (01) ==
PROVIDERS: Emergency Provider Emergency Medicine; PCP Nurse Practitioner Family
DX: R07.89 Other chest pain (principal); R00.0 Tachycardia, unspecified; K30 Functional dyspepsia; K21.9 Gastro-esophageal reflux disease without esophagitis; F41.1 Generalized anxiety disorder; F17.210 Nicotine dependence, cigarettes, uncomplicated; J44.9 Chronic obstructive pulmonary disease, unspecified; E78.5 Hyperlipidemia, unspecified
CPT/HCPCS: 71045; 71275; 74174; 80053; 83690; 84484; 85007; 85025; 85027; 85378; 85610; 85730; 93005; 96374; 99285; J1885; Q9967

== ENCOUNTER 2023-09-03 08:19 | Emergency (ER) | payer MEDICARE, MEDICAID, SELFPAY ==
[2023-09-03 08:19] VITALS: BP 121/56; PULSE 94; RESP 18; TEMP 36.6; O2SAT 95; BMI 24.0
--- NOTE | 2023-09-03 08:23 | ECG_ITS ---
APPROVED REPORT Exam: Resting ECG HR:91 bpm ECG Measurements Heart Rate 91 AXES NV 149 P 73 QRSd 72 QRS 18 QT 359 T 73 QTc 408 Conclusion SINUS RHYTHM NORMAL ECG UNCONFIRMED REPORT Electronically signed by : Jacob Augustine, 09/03/2023 15:06:50
--- NOTE | 2023-09-03 08:33 | XR_ITS ---
PROCEDURE INFORMATION: Exam: XR Chest Exam date and time: 09/03/2023 8:37 AM Age: 68 years old Clinical indication: Dyspnea TECHNIQUE: Imaging protocol: Radiologic exam of the chest. Views: 1 view. COMPARISON: CT ANGIO ABDOMEN PELVIS 09/02/2023 8:04 PM FINDINGS: Lungs: Hyperexpanded lung treviño consistent with COPD. No focal consolidation Pleural spaces: Possible very small left pleural effusion. No pneumothorax. Heart/Mediastinum: Unremarkable. No cardiomegaly. Bones/joints: Anterior cervical fusion IMPRESSION: No focal consolidation Possible very small left pleural effusion
--- NOTE | 2023-09-03 08:38 | [facility].EDCP ---
Discharge Plan Disposition Patient Disposition: Home, Self-Care Prescriptions Prescriptions: No Action clonazepam [Klonopin] 1 mg tablet 1 mg PO TID sertraline 100 mg tablet 100 mg PO DAILY Qty: 90 3RF atorvastatin 80 mg tablet 80 mg PO DAILY Qty: 90 3RF tizanidine 4 mg tablet 4 mg PO HS MDD 4 mg PRN (Reason: muscle spasticity) Qty: 30 5RF ropinirole 2 mg tablet 2 mg PO HSP PRN (Reason: restless legs) topiramate 100 mg tablet 100 mg PO DAILYP PRN (Reason: migraines) alum-mag hydroxide-simeth [Maalox Advanced] 200-200-20 mg/5 mL suspension 5 ml PO Q3H PRN (Reason: dyspepsia) Qty: 3000 0RF Referrals Follow up/Referrals: Akin Alejandra MD [Staff Physician] - See instructions Provider,MD Anders [Referring] - See instructions Bertram Haddad MD [Staff Physician] - See instructions Activity Restrictions/Add. Instructions Additional Instructions/Restrictions: No emergent medical condition identified today. Please follow-up with our general surgeon Dr. Reza for an outpatient evaluation of possible need for endoscopy as your symptoms are most likely secondary to gastroesophageal reflux disease. I cannot definitively rule out underlying cardiac disease and I also recommend that you follow-up with Dr. Alejandra nail making machine tender. Clinical Impressions Clinical Impression: Atypical chest pain Discharge ED Provider: Bashir Augustine [facility] General Chief Complaint: Chest Pain Stated Complaint: Chest Pain Time Seen by Provider: 09/03/23 08:20 Mode of Arrival: EMS Source of Information: Patient Limitations: No Limitations Description of Symptoms (Recalled from ER Triage Doc. by RN): Patient reports chest pain that started when she woke up this morning. States that if she could just burp she would feel better. Patient states she wants a shot so she can go home and rest. History of Present Illness HPI narrative: Patient is a 68-year-old female presents today with chest pain. She was asked to the emergency department yesterday where she was noted to be extremely anxious was given Valium Toradol and GI cocktail with improvement in her symptoms she had a CT angio of her chest abdomen pelvis which were unremarkable had unremarkable EKG and undetectable troponin. 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 She called EMS today for recurrence of her same symptoms she was presented with yesterday. She states she feels like she has a gastric bubble in her chest and that if she could belch she would feel better. States that her GI cocktail yesterday made her feel significantly better. Denies any exertional aspect of this dyspnea diaphoresis radiation etc. Related Data Home Medications Medication Instructions Recorded Confirmed clonazepam 1 mg tablet (Klonopin) 1 mg PO TID 01/24/22 08/11/23 ropinirole 2 mg tablet 2 mg PO HSP PRN restless legs 07/31/23 08/11/23 topiramate 100 mg tablet 100 mg PO DAILYP PRN migraines 07/31/23 08/11/23 Previous Rx's Medication Instructions Recorded atorvastatin 80 mg tablet 80 mg PO DAILY #90 tabs 01/24/22 sertraline 100 mg tablet 100 mg PO DAILY #90 tabs 01/24/22 tizanidine 4 mg tablet 4 mg PO HS PRN muscle spasticity 04/24/23 #30 tabs aluminum-mag hydroxide-simethicone 5 ml PO Q3H PRN dyspepsia #3,000 mL 09/02/23 200 mg-200 mg-20 mg/5 mL oral susp (Maalox Advanced) Allergies Allergy/AdvReac Type Severity Reaction Status Date / Time acetaminophen [From Lortab] Allergy Intermediate Verified 08/11/23 13:05 hydrocodone [From Lortab] Allergy Intermediate Verified 08/11/23 13:05 codeine AdvReac Severe Verified 08/11/23 13:05 hydromorphone [From Dilaudid] AdvReac Severe Verified 08/11/23 13:05 morphine AdvReac Severe Verified 08/11/23 13:05 oxycodone AdvReac Severe Verified 08/11/23 13:05 ondansetron [From Zofran] AdvReac Intermediate Verified 08/11/23 13:05 PFS PFS Disclaimer: The information contained in this section may have been updated after the patient was seen, as this information can be updated by other users. Medical History Seizure disorder Tremor Hernia Urinary incontinence, mixed GERD (gastroesophageal reflux disease) Anxiety and depression Type 2 diabetes mellitus COPD (chronic obstructive pulmonary disease) Hyperlipidemia Migraine headache Surgical History H/O hernia repair H/O: hysterectomy History of cholecystectomy Hx of appendectomy History of bladder surgery H/O neck surgery Family History Other Cancer Diabetes Social History Smoking Status: Current every day smoker alcohol intake: never substance use type: denies use current occupational status: disabled Travel in the last 8 weeks: None household members: significant other housing: house marital status: ROS Obtained: Yes All systems reviewed & no additional complaints except as documented Physical Exam General General appearance: anxious Respiratory Respiratory exam: Present normal lung sounds bilaterally; Absent respiratory distress Cardiovascular Cardiovascular exam: Present regular rate and normal rhythm Abdominal Exam Abdominal exam: Present soft; Absent distention or tenderness Neurological Exam Neurological exam: Present alert and oriented X3 HEART Score HEART Score HEART Score assessment performed?: Yes History (anamnesis): Slightly suspicious ECG: Normal Age: >65 years Risk factors: 1-2 risk factors Troponin: </= normal limit HEART Score: 3 Critical Care Critical Care Time Critical Care Time: No Medical Decision Making Willie Inquiry Pt receiving controlled substance: No Vital Signs Vital Signs: 09/03/23 08:19 09/03/23 09:00 09/03/23 09:30 Temperature 97.9 F Temperature Source Oral Pulse Rate 81 86 Pulse Rate [Radial] 94 H Respiratory Rate 18 18 21 Blood Pressure 111/69 126/80 Blood Pressure [Right Arm] 121/56 L Blood Pressure Mean [Right Arm] 77 Blood Pressure Source [Right Arm] Automatic Cuff Blood Pressure Position [Right Arm] Sitting 02 Sat by Pulse Oximetry 95 97 95 Oxygen Delivery Method Room Air Room Air Room Air Lab Data Lab results reviewed: Yes I reviewed the patient's lab results. Labs: Lab Results 09/03/23 08:05: WBC 11.6 H D, RBC 4.67, Hgb 12.0 L, Hct 36.9 L, MCV 78.9 L, MCH 25.8 L, MCHC 32.6, RDW 15.7, Plt Count 219, MPV 8.0, Neut % (Auto) 72.6, Lymph % (Auto) 19.2, [place] % (Auto) 5.3, Eos % (Auto) 2.5, Baso % (Auto) 0.4, Neut # (Auto) 8.4 H, Lymph # (Auto) 2.2, [place] # (Auto) 0.6, Eos # (Auto) 0.3, Baso # (Auto) 0.0, Sodium 136, Potassium 4.3, Chloride 104, Carbon Dioxide 26, Anion Gap 10.3, BUN 7 D, Creatinine 0.50 L, Estimated Creat Clear 55, Estimated GFR 123, Est GFR ( Amer) 149, Glucose 151 H D, Calcium 9.2, Total Bilirubin 0.5, AST 34, ALT 33, Alkaline Phosphatase 35 L, Troponin I < 0.01, Total Protein 7.1, Albumin 3.7, Globulin 3.4 H, Albumin/Globulin Ratio 1.1, Lipase 190, Plasma/Serum Alcohol < 10 09/03/23 08:39: Urine Opiates Screen Negative, Urine Methadone Screen Negative, Ur Barbituates Screen Positive H, Ur Phencyclidine Scrn Negative, Ur Amphetamines Screen Negative, U Benzodiazepines Scrn Positive H, Urine Cocaine Screen Negative, U Marijuana (THC) Screen Negative 09/03/23 08:05 09/03/23 08:05 Response Orders (Tests/Meds): ED MEDICATIONS Generic Name Dose Route Start Last Admin Trade Name Freq PRN Reason Stop Dose Admin Diphenhydramine HCl 25 mg 09/03/23 09:47 Diphenhydramine 25mg Capsule PO 09/03/23 09:48 ONCE ONE Sodium Chloride 8 ml 09/03/23 08:33 Sodium Chloride 0.9% 10ml Vial IV 10/03/23 08:32 NEEDED PRN dilute pepcid Discontinued Medications Generic Name Dose Route Start Last Admin Trade Name Freq PRN Reason Stop Dose Admin Belladonna Alkaloids 60 ml 09/03/23 08:33 09/03/23 08:47 Belladonna Alkaloids 60 Ml Ml PO 09/03/23 08:34 60 ml ONCE ONE Administration Famotidine 20 mg 09/03/23 08:33 09/03/23 08:47 Famotidine 20mg/2ml Vial IV 09/03/23 08:34 20 mg ONCE ONE Administration ORDERS Category Date Time Status CXR --portable [XR chest portable] Stat Exams 09/03/23 08:33 Completed CBC w/Auto Diff [Complete Blood Count Auto Diff] Stat Lab 09/03/23 08:05 Completed CMP [Comprehensive Metabolic Panel] Stat Lab 09/03/23 08:05 Completed Ethanol [Ethyl Alcohol] Stat Lab 09/03/23 08:05 Completed Lipase Stat Lab 09/03/23 08:05 Completed Trop I [Troponin I] Stat Lab 09/03/23 08:05 Completed Troponin I Q3H Lab 09/03/23 11:45 Ordered Troponin I Q3H Lab 09/03/23 14:45 Ordered UDS [Drug Screen,Urine] Stat Lab 09/03/23 08:39 Completed ECG Data Tracing #1: Attestation: I reviewed this ECG and interpreted as documented below: ECG Narrative: Ventricular rate 91 normal sinus rhythm no acute ischemic changes normal axis no significant conduction abnormalities MDM Narrative Medical Decision Narrative: Anxious appearing 68-year-old female presented today with similar symptoms that she was here for yesterday. I personally viewed the images and the reads from the CT angio chest abdomen pelvis which were unremarkable as well as her laboratory workup. I suspect this patient may be having some withdrawal symptoms associated with alcohol or benzos or that she may be acutely intoxicated with a sympathomimetic drug such as meth. She is extremely anxious. However from emergent standpoint no intervention is needed for this at the moment. Will rule out a cardiopulmonary emergency. I do not suspect she has a pulmonary embolism with negative scans yesterday, or aortic dissection. Will get a single troponin given the duration of her symptoms have been lasting several days. It is unlikely to be acute coronary syndrome. I will give her GI cocktail and Pepcid for possible gastritis/GERD and will reassess. Chest x-ray performed which I first interpreted which shows no acute cardiopulmonary emergency Reassessment labs unremarkable patient's had symptoms for several days and has had serial troponins at this point which were negative. She is improved with GI cocktail and Pepcid. Most likely GERD/peptic ulcer disease. She has been advised to follow-up outpatient with Dr. Reza to get evaluated for possible endoscopy. I have also referred her to her nail making machine tender as I cannot rule out underlying cardiac disease which is unlikely. She was discharged in improved and stable condition. Advised to take outpatient Maalox and/or Pepcid.
[2023-09-03 08:46] LABS: Basophils % 0.4 % (0.1-2.0); Eosinophils # 0.3 K/mm3 (0.0-0.4); Eosinophils % 2.5 % (0.1-12.0); Hematocrit 36.9 % (37.0-47.0); Lymphocytes # 2.2 K/mm3 (0.7-4.5); Lymphocytes % 19.2 % (10-50); Mean Corpuscular HGB Conc 32.6 g/dL (31.8-35.4); Mean Corpuscular Hemoglobin 25.8 pg (27.0-31.2); Mean Corpuscular Volume 78.9 fl (81-99); Monocytes # 0.6 K/mm3 (0.1-1.0); Monocytes % 5.3 % (1.7-9.3); Neutrophils # 8.4 K/mm3 (1.8-7.8); Neutrophils % 72.6 % (37.0-80.0); Platelet Count 219 K/mm3 (142-424); Red Blood Count 4.67 M/mm3 (4.20-5.40); Red Cell Distribution Width 15.7 % (11.5-17.5); White Blood Count 11.6 K/mm3 (4.8-10.8)
[2023-09-03] MEDS: FAMOTIDINE 20MG/2ML VIAL 20 MG IV (08:47)
[2023-09-03] MEDS: BELLADONNA ALKALOIDS 60 ML ML PO (08:47)
--- NOTE | 2023-09-03 08:48 | PC.NURSE ---
Dr. Augustine s/w Dr. Mckee
[2023-09-03 09:00] VITALS: BP 111/69; PULSE 81; RESP 18; O2SAT 97
[2023-09-03 09:14] LABS: Amphetamine/Metha Screen,Urine Negative ng/ml (<1000); Barbiturates Screen,Urine Positive ng/ml (<200)
[2023-09-03 09:15] LABS: Benzodiazepines Screen,Urine Positive ng/ml (<200); Methadone Screen,Urine Negative ng/ml (<300)
[2023-09-03 09:16] LABS: Cannabinoid Screen,Urine Negative ng/ml (<50)
[2023-09-03 09:17] LABS: Cocaine Screen,Urine Negative ng/ml (<300); Opiate Screen,Urine Negative ng/ml (<300)
[2023-09-03 09:18] LABS: Phencyclidine Screen,Urine Negative ng/ml (<25)
[2023-09-03 09:21] LABS: Ethyl Alcohol < 10 mg/dl (0-10)
[2023-09-03 09:22] LABS: Alanine Aminotransferase 33 U/L (12-78); Albumin Level 3.7 g/dl (3.5-5.0); Albumin/Globulin Ratio 1.1 (1.1-1.8); Alkaline Phosphatase 35 U/L (38-126); Anion Gap 10.3 mEq/L (5-15); Aspartate Amino Transferase 34 U/L (14-36); Bilirubin,Total 0.5 mg/dl (0.2-1.3); Blood Urea Nitrogen 7 mg/dl (7-17); Calcium 9.2 mg/dl (8.4-10.2); Carbon Dioxide 26 mmol/L (22.0-30.0); Chloride 104 mmol/L (98-107); Creatinine Clearance Estimated 55 mL/min (50-200); Estimated Glomerular Filt Rate 123 ml/min (>60); GFR (African American) 149 ML/MIN (>60); Globulin 3.4 g/dL (1.3-3.2); Glucose 151 mg/dl (74-100); Lipase 190 U/L (23-300); Potassium 4.3 mmoL/L (3.5-5.1); Sodium 136 mmol/L (136-145); Total Protein,Serum 7.1 g/dl (6.3-8.2)
[2023-09-03 09:30] VITALS: BP 126/80; PULSE 86; RESP 21; O2SAT 95
[2023-09-03 09:38] LABS: Troponin I < 0.01 ng/ml (0.00-0.034)
[2023-09-03] MEDS: diphenhydrAMINE 25MG CAPSULE 25 MG PO (09:48)
[2023-09-03 09:54] VITALS: BP 126/96; PULSE 84; RESP 18; TEMP 36.7; O2SAT 98
== END 2023-09-03 09:55 | disposition home or self-care (01) ==
PROVIDERS: Emergency Provider Student in an Organized Health Care Education/Training Program; PCP Nurse Practitioner Family
DX: R07.89 Other chest pain (principal); K30 Functional dyspepsia; K21.9 Gastro-esophageal reflux disease without esophagitis; F41.1 Generalized anxiety disorder; F17.210 Nicotine dependence, cigarettes, uncomplicated; J44.9 Chronic obstructive pulmonary disease, unspecified; E78.5 Hyperlipidemia, unspecified
CPT/HCPCS: 71045; 80053; 80307; 80320; 83690; 84484; 85025; 93005; 96374; 99284; G0480; S0028

== ENCOUNTER 2023-09-29 11:36 | Emergency (ER) | payer MEDICARE, MEDICAID, SELFPAY ==
--- NOTE | 2023-09-29 11:52 | EXP.UTC ---
Discharge Plan Disposition Patient Disposition: Home, Self-Care Condition: Good Prescriptions Prescriptions: No Action clonazepam [Klonopin] 1 mg tablet 1 mg PO TID sertraline 100 mg tablet 100 mg PO DAILY Qty: 90 3RF atorvastatin 80 mg tablet 80 mg PO DAILY Qty: 90 3RF tizanidine 4 mg tablet 4 mg PO HS MDD 4 mg PRN (Reason: muscle spasticity) Qty: 30 5RF ropinirole 2 mg tablet 2 mg PO HSP PRN (Reason: restless legs) topiramate 100 mg tablet 100 mg PO DAILYP PRN (Reason: migraines) alum-mag hydroxide-simeth [Maalox Advanced] 200-200-20 mg/5 mL suspension 5 ml PO Q3H PRN (Reason: dyspepsia) Qty: 3000 0RF Referrals Follow up/Referrals: Alen Goldberg DO [Staff Physician] - See instructions Livier Crane APRN [Primary Care Provider] - See instructions Activity Restrictions/Add. Instructions Additional Instructions/Restrictions: Rest the extremity, apply ice for 15 minutes as tolerated three or four times per day, Elevate the extremity as tolerated while you are resting. Follow up with Dr. Goldberg (orthopedics). I put in a referral but you need to call his office and schedule an appointment. Follow up with your regular doctor. GO TO THE ER FOR ANY WORSENING SYMPTOMS Clinical Impressions Clinical Impression: Closed fracture of right distal radius Instructions Patient Instructions: DI for Distal Radius Fracture Print Language Print Language: Spanish Discharge ED Provider: Jacob Frazier [facility] General Stated complaint: AO 09/28/23, fell, inj right arm Time Seen by Provider: 09/29/23 11:52 History of Present Illness Provider Complaint: She states that she fell yesterday and caught herself with her right hand. She has had right wrist pain since then. Related Data Home Medications ?Medication ?Instructions ?Recorded ?Confirmed clonazepam 1 mg tablet (Klonopin) 1 mg PO TID 01/24/22 08/11/23 ropinirole 2 mg tablet 2 mg PO HSP PRN restless legs 07/31/23 08/11/23 topiramate 100 mg tablet 100 mg PO DAILYP PRN migraines 07/31/23 08/11/23 Previous Rx's ?Medication ?Instructions ?Recorded atorvastatin 80 mg tablet 80 mg PO DAILY #90 tabs 01/24/22 sertraline 100 mg tablet 100 mg PO DAILY #90 tabs 01/24/22 tizanidine 4 mg tablet 4 mg PO HS PRN muscle spasticity 04/24/23 #30 tabs aluminum-mag hydroxide-simethicone 5 ml PO Q3H PRN dyspepsia #3,000 mL 09/02/23 200 mg-200 mg-20 mg/5 mL oral susp (Maalox Advanced) Allergies Allergy/AdvReac Type Severity Reaction Status Date / Time acetaminophen [From Lortab] Allergy Intermediate Verified 08/11/23 13:05 hydrocodone [From Lortab] Allergy Intermediate Verified 08/11/23 13:05 codeine AdvReac Severe Verified 08/11/23 13:05 hydromorphone [From Dilaudid] AdvReac Severe Verified 08/11/23 13:05 morphine AdvReac Severe Verified 08/11/23 13:05 oxycodone AdvReac Severe Verified 08/11/23 13:05 ondansetron [From Zofran] AdvReac Intermediate Verified 08/11/23 13:05 PFSH PFS Disclaimer: The information contained in this section may have been updated after the patient was seen, as this information can be updated by other users. Medical History Seizure disorder Tremor Hernia Urinary incontinence, mixed GERD (gastroesophageal reflux disease) Anxiety and depression Type 2 diabetes mellitus COPD (chronic obstructive pulmonary disease) Hyperlipidemia Migraine headache Surgical History H/O hernia repair H/O: hysterectomy History of cholecystectomy Hx of appendectomy History of bladder surgery H/O neck surgery Family History Other Cancer Diabetes Social History Smoking Status: Current every day smoker alcohol intake: never substance use type: denies use current occupational status: disabled Travel in the last 8 weeks: None household members: significant other housing: house marital status: ROS Obtained: Yes All systems reviewed & no additional complaints except as documented Constitutional Constitutional: Denies chills and Denies fever(s) Eyes Eyes: Denies eye discharge ENT Ears, Nose, Mouth, and Throat: Denies dizziness, Denies otalgia and Denies sore throat Cardiovascular Cardiovascular: Denies chest pain Respiratory Respiratory: Denies shortness of breath, Denies chest congestion, Denies cough, Denies stridor and Denies wheezing Gastrointestinal Gastrointestingal: Denies nausea or vomiting Musculoskeletal Musculoskeletal: Reports as per HPI Integumentary/Breasts Skin/Breast: Denies redness, Denies rash and Denies wounds Neurologic Neurologic: Denies dizziness and Denies paresthesias Allergic/Immunologic Allergic/Immunologic: Denies wheezing Physical Exam General General appearance: alert and in no apparent distress Head Head exam: atraumatic, normocephalic and normal inspection Eye Eye exam: Present normal appearance, PERRL and EOMI ENT ENT exam: Present normal exam, normal oropharynx, mucous membranes moist, TM's normal bilaterally and normal external ear exam Neck Neck exam: Present normal inspection, full ROM and trachea midline; Absent meningismus or lymphadenopathy Chest Chest inspection: Present normal inspection and symmetric chest wall rise; Absent tenderness Respiratory Respiratory exam: Present normal lung sounds bilaterally; Absent respiratory distress Cardiovascular Cardiovascular exam: Present regular rate and normal rhythm; Absent JVD Abdominal Exam Abdominal exam: Present soft and normal bowel sounds; Absent distention, tenderness or guarding Extremities Exam Extremities exam: Present normal capillary refill; Absent calf tenderness Expanded Upper Extremity Exam Right: Shoulder exam: Present normal inspection and full ROM; Absent tenderness or tenderness over AC joint Arm exam: Present normal inspection and full ROM; Absent tenderness Elbow exam: Present normal inspection and full ROM; Absent tenderness, pain w/ pronation/supination or tenderness over radial head Forearm/Wrist exam: Present full ROM and tenderness; Absent swelling, abrasion, laceration, ecchymosis, deformity, crepitus, dislocation, erythema, tenderness over anatomical snuff box or pain with axial thumb loading Hand exam: Present full ROM, tenderness and swelling; Absent abrasion, laceration, skin avulsion, ecchymosis, deformity, crepitus, dislocation, erythema, amputation, nail avulsion or subungual hematoma Neuromotor exam: Normal wrist extension, thumb opposition, thumb IP flexion, thumb adduction and fingers 2-5 abduction Neurosensory exam: Normal radial nerve, ulnar nerve and median nerve Vascular exam: Normal capillary refill, radial pulse and ulnar pulse Back Exam Back exam: Present normal inspection; Absent tenderness Neurological Exam Neurological exam: Present alert and oriented X3 Psychiatric Psychiatric exam: Present normal affect and normal mood Skin Skin exam: Present warm, dry, intact and normal color Lymphatic Lymphatic Findings: no adenopathy Medical Decision Making Medical Records Medical records reviewed: No I reviewed the patient's medical records. Willie Inquiry Pt receiving controlled substance: No Procedures Risk/Benefits of Procedure(s) Were Explained: Yes Orthopedic Splinting/Casting Injury #1: Side: right Upper Extremity Injury Location: forearm, wrist and hand Upper Extremity Immobilizer: volar splint and applied by nurse/dr burris Post Cast/Splinting Neuro Status: intact and no change Post Cast/Splinting Vasc Status: intact and no change
[2023-09-29 11:53] VITALS: BP 103/51; PULSE 93; RESP 16; TEMP 36.6; O2SAT 96; BMI 25.4
--- NOTE | 2023-09-29 11:54 | XR_ITS ---
FINAL REPORT CLINICAL HISTORY: fall- pain COMPARISON: None FINDINGS: 2 views of the right forearm were obtained. There is no acute fracture or dislocation. There is mild degenerative change. There are no soft tissue abnormalities. IMPRESSION: No acute process. Reviewed, Interpreted and Dictated by Chester Ceja III, MD Transcribed by Estrella Helms Authenticated and [facility]
--- NOTE | 2023-09-29 11:54 | XR_ITS ---
FINAL REPORT CLINICAL HISTORY: fall-pain COMPARISON: None FINDINGS: Two views of the right hand were obtained. There is no acute fracture or dislocation. There is mild degenerative change. There is no acute soft tissue abnormality. IMPRESSION: No acute abnormality identified. Reviewed, Interpreted and Dictated by Chester Ceja III, MD Transcribed by Estrella Helms Authenticated and [facility]
--- NOTE | 2023-09-29 11:55 | XR_ITS ---
FINAL REPORT CLINICAL HISTORY: fall- pain COMPARISON: None FINDINGS: Two views of the right wrist were obtained. There is a mildly impacted fracture of the distal radius of uncertain age. Mild degenerative changes are noted. There is no acute soft tissue abnormality. IMPRESSION: Distal radius fracture of uncertain age. Reviewed, Interpreted and Dictated by Chester Ceja III, MD Transcribed by Estrella Helms Authenticated and [facility]
[2023-09-29 13:47] VITALS: BP 103/51; PULSE 93; RESP 16; TEMP 36.6; O2SAT 96
== END 2023-09-29 13:48 | disposition home or self-care (01) ==
PROVIDERS: Emergency Provider Nurse Practitioner Family; PCP Nurse Practitioner Family
DX: S52.501A Unspecified fracture of the lower end of right radius, initial encounter for closed fracture (principal); M25.531 Pain in right wrist; W19.XXXA Unspecified fall, initial encounter
CPT/HCPCS: 73090; 73100; 73120; 99204; 99212; G0463

== ENCOUNTER 2023-10-19 12:26 | Outpatient (CLI) | payer MEDICARE, MEDICAID, SELFPAY ==
--- NOTE | 2023-10-19 12:30 | XR_ITS ---
FINAL REPORT CLINICAL HISTORY: Rt Wrist pain COMPARISON: 09/29/2023 FINDINGS: RIGHT WRIST Three views demonstrate minimal deformity of the distal radial metaphysis. There is no acute fracture. Minimal hypertrophic changes are noted of the basilar joint. The soft tissues are unremarkable. IMPRESSION: Minimal deformity of the distal radial metaphysis. No acute bony abnormality. Reviewed, Interpreted and Dictated by Sy Brantley MD Transcribed by Estrella Helms Authenticated and [facility]
== END 2023-10-19 23:59 | disposition home or self-care (01) ==
LOC: RAD 12:28
PROVIDERS: PCP Internal Medicine; Visit Provider Physician Assistant Surgical
DX: S52.501A Unspecified fracture of the lower end of right radius, initial encounter for closed fracture (principal); M25.531 Pain in right wrist
CPT/HCPCS: 73110

== ENCOUNTER 2023-10-30 15:03 | Outpatient (CLI) | payer MEDICARE, MEDICAID, SELFPAY ==
[2023-10-30 13:23] LABS: Microscopic, Urine URINE MICROSCOPIC (MICROSCOPIC)
[2023-10-30 13:47] LABS: Basophils # 0.1 K/mm3 (0-0.2); Basophils % 0.7 % (0.1-2.0); Eosinophils # 0.2 K/mm3 (0.0-0.4); Eosinophils % 2.8 % (0.1-12.0); Hematocrit 42.1 % (37.0-47.0); Hemoglobin 12.7 g/dL (12.2-16.2); Lymphocytes # 1.7 K/mm3 (0.7-4.5); Lymphocytes % 25.3 % (10-50); Mean Corpuscular HGB Conc 30.1 g/dL (31.8-35.4); Mean Corpuscular Hemoglobin 24.3 pg (27.0-31.2); Mean Corpuscular Volume 80.7 fl (81-99); Mean Platelet Volume 8.6 fl (7.4-10.4); Monocytes # 0.4 K/mm3 (0.1-1.0); Monocytes % 6.3 % (1.7-9.3); Neutrophils # 4.5 K/mm3 (1.8-7.8); Platelet Count 241 K/mm3 (142-424); Red Blood Count 5.21 M/mm3 (4.20-5.40); Red Cell Distribution Width 15.8 % (11.5-17.5); White Blood Count 6.9 K/mm3 (4.8-10.8)
[2023-10-30 13:48] LABS: Appearance,Urine CLEAR (Clear); Bilirubin,Urine Negative (Negative); Blood, Urine Negative (Negative); Color,Urine YELLOW (Yellow); Glucose,Urine (UA) Negative (Negative); Ketones,Urine Negative (Negative); Leukocyte Esterase,Urine TRACE (Negative); Nitrate,Urine Negative (Negative); Protein,Urine Negative (Negative); Urobilinogen,Urine 0.2 EU/dl (0.2)
[2023-10-30 14:23] LABS: Bacteria,Urine Trace /lpf
[2023-10-30 14:55] LABS: Alanine Aminotransferase 29 U/L (12-78); Albumin Level 3.7 g/dl (3.5-5.0); Albumin/Globulin Ratio 1.1 (1.1-1.8); Alkaline Phosphatase 54 U/L (38-126); Anion Gap 6.4 mEq/L (5-15); Aspartate Amino Transferase 35 U/L (14-36); Bilirubin,Total 0.5 mg/dl (0.2-1.3); Blood Urea Nitrogen 6 mg/dl (7-17); Calcium 9.2 mg/dl (8.4-10.2); Carbon Dioxide 27 mmol/L (22.0-30.0); Chloride 107 mmol/L (98-107); Chol/HDL Ratio 3.3 (1-3.5); Cholesterol 130 mg/dl (140-200); Estimated Glomerular Filt Rate 123 ml/min (>60); GFR (African American) 149 ML/MIN (>60); Globulin 3.3 g/dL (1.3-3.2); Glucose 103 mg/dl (74-100); HDL Cholesterol 39 mg/dl (40-60); Phosphorous 3.6 mg/dl (2.5-4.5); Potassium 4.4 mmoL/L (3.5-5.1); Sodium 136 mmol/L (136-145); Triglycerides 193 mg/dl (30-150); VLDL Cholesterol 39 mg/dL (0-40)
[2023-10-30 15:06] LABS: Direct LDL Cholesterol 50.04 mg/dL (100-129)
[2023-10-30 15:22] LABS: 25-OH Vitamin D, Total 23.5 ng/mL (30-100)
[2023-10-30 15:26] LABS: Thyroid Stimulating Hormone 1.16 uIU/mL (0.465-4.68)
[2023-10-30 15:45] LABS: Vitamin B12 498 pg/mL (239-931)
[2023-10-30 16:05] LABS: HIV (1&2) Antibody Rapid NONREACTIVE (NONREACTIVE)
[2023-10-30 17:29] LABS: Iron 55 ug/dL (37-170)
[2023-10-30 17:34] LABS: Creatinine,Urine Random 182 mg/dL (Not Estab.)
[2023-10-30 17:38] LABS: Total Iron Binding Capacity 430 ug/dL (265-497)
[2023-10-30 18:05] LABS: Ferritin 6.93 ng/ml (11.1-264)
[2023-10-30 18:21] LABS: Microalbumin < 6.000 mg/L (0-16.7)
[2023-10-30 18:36] LABS: Hemoglobin A1C 6.8 % (4.0-6.0)
[2023-10-31 10:16] LABS: HCV Ab Non Reactive (Non Reactive)
== END 2023-10-30 23:59 | disposition home or self-care (01) ==
LOC: LAB.DROPOF 15:03
PROVIDERS: PCP Nurse Practitioner Family; Visit Provider Nurse Practitioner Family
DX: E55.9 Vitamin D deficiency, unspecified (principal); R53.83 Other fatigue; E11.9 Type 2 diabetes mellitus without complications; G25.81 Restless legs syndrome; Z11.59 Encounter for screening for other viral diseases; E78.5 Hyperlipidemia, unspecified; R39.9 Unspecified symptoms and signs involving the genitourinary system; Z11.4 Encounter for screening for human immunodeficiency virus [HIV]
CPT/HCPCS: 80053; 80061; 81001; 82043; 82306; 82570; 82607; 82728; 83036; 83540; 83550; 83735; 84100; 84439; 84443; 85025; 86803; 87086; 87389

== ENCOUNTER 2023-11-09 13:08 | Outpatient (CLI) | payer MEDICARE, MEDICAID, SELFPAY ==
--- NOTE | 2023-11-09 13:15 | XR_ITS ---
FINAL REPORT CLINICAL HISTORY: wrist fracture COMPARISON: 10/19/2023 FINDINGS: RIGHT WRIST Three views demonstrate a mildly impacted buckle fracture of the dorsal distal radial metaphysis, healed from prior exam. There are mild hypertrophic changes at the basilar joint. IMPRESSION: Healed buckle fracture of the dorsal distal radial metaphysis. Reviewed, Interpreted and Dictated by Sy Bratnley MD Transcribed by Marlen Hargrove Authenticated and . [facility]
== END 2023-11-09 23:59 | disposition home or self-care (01) ==
LOC: RAD 13:10
PROVIDERS: PCP Internal Medicine; Visit Provider Physician Assistant Surgical
DX: S52.501A Unspecified fracture of the lower end of right radius, initial encounter for closed fracture (principal)
CPT/HCPCS: 73110

== ENCOUNTER 2023-11-13 12:57 | Outpatient (CLI) | payer MEDICARE, MEDICAID, SELFPAY ==
[2023-11-13] MEDS: EPTINEZUMAB JJMR IV (13:21)
[2023-11-13] MEDS: SODIUM CHLORIDE 0.9% IV (13:21)
[2023-11-13] MEDS: SODIUM CHLORIDE 0.9% 50ML BAG 50 ML IV (13:22)
[2023-11-13 13:25] VITALS: BP 129/58; PULSE 51; RESP 18; TEMP 36.4; O2SAT 96
[2023-11-13 14:04] VITALS: BP 118/69; PULSE 77; RESP 18; O2SAT 97
== END 2023-11-13 14:04 | disposition home or self-care (01) ==
LOC: INF 12:59
PROVIDERS: PCP Internal Medicine; Visit Provider Specialist
DX: G43.909 Migraine, unspecified, not intractable, without status migrainosus (principal)
CPT/HCPCS: 96413; J3032

== ENCOUNTER 2023-11-27 11:45 | Emergency (ER) | payer MEDICARE, MEDICAID, SELFPAY ==
--- NOTE | 2023-11-27 11:53 | XR_ITS ---
FINAL REPORT CLINICAL HISTORY: pain COMPARISON: 11/09/2023 FINDINGS: RIGHT WRIST Three views demonstrate no acute fracture or dislocation. There is a chronic impaction fracture of the distal radius. The visualized joint spaces are normally aligned. Moderate degenerative changes are seen. The soft tissues are unremarkable. IMPRESSION: No acute bony abnormality. Reviewed, Interpreted and Dictated by Chester Ceja III, MD Transcribed by Marlen Hargrove Authenticated and [facility]
--- NOTE | 2023-11-27 11:53 | XR_ITS ---
FINAL REPORT CLINICAL HISTORY: pain, FALL COMPARISON: 11/09/2023 FINDINGS: RIGHT HAND Three views demonstrate no acute fracture or dislocation. There is a impaction fracture of the distal radius. Moderate degenerative changes are seen. The visualized joint spaces are normally aligned. The soft tissues are unremarkable. IMPRESSION: No acute bony abnormality. Reviewed, Interpreted and Dictated by Chester Ceja III, MD Transcribed by Marlen Hargrove Authenticated and [facility]
--- NOTE | 2023-11-27 11:56 | XR_ITS ---
FINAL REPORT CLINICAL HISTORY: pain, FALL COMPARISON: 11/09/2023 FINDINGS: 2 views of the right forearm were obtained. There is a chronic impaction fracture of the distal radius. There is no acute fracture or dislocation. The joints are intact. Moderate degenerative changes are noted. There are no soft tissue abnormalities. IMPRESSION: No acute process. Reviewed, Interpreted and Dictated by Chester Ceja III, MD Transcribed by Marlen Hargrove Authenticated and [facility]
[2023-11-27 11:58] VITALS: BP 134/73; PULSE 84; RESP 16; TEMP 36.6; O2SAT 98; BMI 24.3
--- NOTE | 2023-11-27 12:16 | ED_ITS ---
Discharge Plan Disposition Patient Disposition: Home, Self-Care Condition: Good Prescriptions Prescriptions: No Action atorvastatin 80 mg tablet 80 mg PO DAILY Qty: 90 3RF ropinirole 2 mg tablet 2 mg PO HSP PRN (Reason: restless legs) sertraline 100 mg tablet 200 mg PO DAILY azelastine 137 mcg (0.1 %) spray,non-aerosol 2 spray intranasal ONCE albuterol sulfate 90 mcg/actuation HFA aerosol inhaler 2 inh inhalation Q4-6H PRN Trelegy Ellipta 200-62.5-25 mcg blister with device 1 inh inhalation DAILY alcohol swabs [DropSafe Alcohol Prep Pads] Pads, Medicated topical ipratropium-albuterol 0.5 mg-3 mg(2.5 mg base)/3 mL solution for nebulization 3 ml inhalation Q4-6H PRN Patient Comments: USE 3 ML VIA NEBULIZER FOUR TIMES DAILY NEEDED (DME) lancets [Accu-Chek Softclix Lancets] Misc See Rx Instructions .ROUTE .MEDSUPPLY Qty: 100 Rx Instructions: As directed (DME) Accu-Chek Guide test strips Strip See Rx Instructions .ROUTE .MEDSUPPLY Qty: 10 Rx Instructions: As directed (DME) BD Luer-Konrad Syringe 3 mL 23 x 1 syringe See Rx Instructions .ROUTE .MEDSUPPLY Qty: 1 Patient Comments: USE DIRECTED ONCE WEEKLY FOR B12 INJECTIONS Rx Instructions: As directed (DME) blood-glucose meter [Accu-Chek Guide Me Glucose Mtr] Misc See Rx Instructions .ROUTE .MEDSUPPLY Qty: 1 Rx Instructions: As directed promethazine 25 mg tablet 25 mg PO Q8H PRN (Reason: motion sickness) Qty: 60 0RF Vyepti 100 mg/mL solution 100 mg IV [id number] Rx Instructions: administer over 30 mins famotidine 20 mg tablet 20 mg PO BID Qty: 180 3RF clonazepam [Klonopin] 1 mg tablet 1 mg PO BID Qty: 60 2RF cholecalciferol (vitamin D3) 50 mcg (2,000 unit) capsule 50 mcg PO DAILY Qty: 90 3RF coQ10 (ubiquinol) [Qunol Sharan CoQ10] 100 mg capsule 100 mg PO BID Qty: 180 3RF meclizine 25 mg tablet 25 mg PO Q6HP PRN (Reason: dizziness) Qty: 90 0RF Trulicity 0.75 mg/0.5 mL pen injector 0.75 mg SQ QWEEK Qty: 6 3RF ferrous sulfate 325 mg (65 mg iron) tablet 325 mg PO BID Qty: 180 0RF Referrals Follow up/Referrals: Akin Everett DO [Primary Care Provider] - See instructions Activity Restrictions/Add. Instructions Additional Instructions/Restrictions: *RICE, Rest the extremity, Ice 15-20 minutes 3-4 times daily, Compress- wear the angela wrap as discussed as much as possible to help reduce swelling and pain, Elevate the extremity when at rest *Wear your wrist brace it is for support and help control swelling, use it except in the shower. Be sure that is not to tight but not to loose either *Elevate when resting? *Ibuprofen 600-800mg every 6-8 hours as needed for pain an inflammation. If need something more can take Tylenol in between doses of Ibuprofen to help Immediately follow up with your family doctor for new or worsening of symptoms, or no noticeable improvement over the next 3-5 days Clinical Impressions Clinical Impression: Sprain of wrist Instructions Patient Instructions: How To Perform RICE (Rest, Ice, Compress, Elevate), DI for Wrist Sprain Print Language Print Language: Nauruan Discharge ED Provider: Cecily Recio [facility] General Stated complaint: right wrist pain Mode of Arrival: Ambulatory Source of Information: Patient Limitations: No Limitations Time Seen by Provider: 11/27/23 12:17 Description of Symptoms (Recalled from Triage Doc. by RN): Patient reports multiple falls last week and injuring her right hand and forearm. HEENT Symptoms (Recalled from RN notes): No Resp Symptoms (Recalled from RN notes): No Skin Symptoms (Recalled from RN notes): No MS Symptoms (Recalled from RN notes): Yes Functional Status (Recalled from RN notes): wnl History of Present Illness Provider Complaint: Patient states that she has vertigo and she fell several times last week on vacation and hurt her right wrist and forearm States that pain is worse with movement so today she came in to get it checked Related Data Home Medications ?Medication ?Instructions ?Recorded ?Confirmed ropinirole 2 mg tablet 2 mg PO HSP PRN restless legs 07/31/23 11/16/23 albuterol sulfate 90 mcg/actuation 2 inh inhalation Q4-6H PRN 10/30/23 11/16/23 aerosol inhaler alcohol swabs (DropSafe Alcohol pad topical 10/30/23 11/16/23 Prep Pads) azelastine 137 mcg (0.1 %) nasal 2 spray intranasal ONCE 10/30/23 11/16/23 spray blood sugar diagnostic (Accu-Chek #10 ea 10/30/23 11/19/23 Guide test strips) blood-glucose meter (Accu-Chek #1 ea 10/30/23 11/19/23 Guide Me Glucose Meter) eptinezumab-jjmr 100 mg/mL 100 mg IV [id number] 10/30/23 11/19/23 intravenous solution (Vyepti) fluticasone fur. 200 mcg-umeclid 1 inh inhalation DAILY 10/30/23 11/16/23 62.5 mcg-vilant 25 mcg inhalat.powder (Trelegy Ellipta) ipratropium 0.5 mg-albuterol 3 mg 3 ml inhalation Q4-6H PRN 10/30/23 11/16/23 (2.5 mg base)/3 mL nebulization soln lancets (Accu-Chek Softclix #100 ea 10/30/23 11/19/23 Lancets) sertraline 100 mg tablet 200 mg PO DAILY 10/30/23 11/16/23 syringe with needle 3 mL 23 x 1 #1 ea 10/30/23 11/19/23 (BD Luer-Konrad Syringe) Previous Rx's ?Medication ?Instructions ?Recorded atorvastatin 80 mg tablet 80 mg PO DAILY #90 tabs 01/24/22 promethazine 25 mg tablet 25 mg PO Q8H PRN motion sickness 10/30/23 #60 tabs cholecalciferol (vitamin D3) 50 50 mcg PO DAILY #90 caps 10/31/23 mcg (2,000 unit) capsule coQ10 (ubiquinol) 100 mg capsule 100 mg PO BID #180 caps 10/31/23 (Qunol Sharan CoQ10) meclizine 25 mg tablet 25 mg PO Q6HP PRN dizziness #90 11/03/23 tabs dulaglutide 0.75 mg/0.5 mL 0.75 mg (0.5 mL) SQ QWEEK #6 mL 11/07/23 subcutaneous pen injector (Trulicity) ferrous sulfate 325 mg (65 mg 325 mg PO BID #180 tabs 11/07/23 iron) tablet clonazepam 1 mg tablet (Klonopin) 1 mg PO BID #60 tabs 11/16/23 famotidine 20 mg tablet 20 mg PO BID #180 tabs 11/16/23 Allergies Allergy/AdvReac Type Severity Reaction Status Date / Time acetaminophen [From Lortab] Allergy Intermediate Verified 11/16/23 13:15 hydrocodone [From Lortab] Allergy Intermediate Verified 11/16/23 13:15 codeine AdvReac Severe Verified 11/16/23 13:15 hydromorphone [From Dilaudid] AdvReac Severe Verified 11/16/23 13:15 morphine AdvReac Severe Verified 11/16/23 13:15 oxycodone AdvReac Severe Verified 11/16/23 13:15 ondansetron [From Zofran] AdvReac Intermediate Verified 11/16/23 13:15 Worker's Comp Is this a Worker's Comp case?: No [facility] Disclaimer: The information contained in this section may have been updated after the patient was seen, as this information can be updated by other users. Medical History (Updated 11/27/23 @ 13:34 by Cecily Recio APRN) MDD (major depressive disorder) Mood disorder Sprain of right wrist Episodic migraine Acute UTI Back pain Allergic reaction Chest pain at rest Back pain Chest pain Chest pain Indigestion Atypical chest pain Seizure disorder Tremor Hernia Urinary incontinence, mixed GERD (gastroesophageal reflux disease) Anxiety and depression Type 2 diabetes mellitus COPD (chronic obstructive pulmonary disease) Hyperlipidemia Migraine headache Surgical History H/O hernia repair H/O: hysterectomy History of cholecystectomy Hx of appendectomy History of bladder surgery H/O neck surgery Family History Other Cancer Diabetes Social History Smoking Status: Current every day smoker alcohol intake: never substance use type: denies use current occupational status: disabled Travel in the last 8 weeks: None household members: significant other housing: house marital status: ROS Obtained: Yes All systems reviewed & no additional complaints except as documented and Yes Systems reviewed as appropriate & no additional complaints except as documented Constitutional Constitutional: Reports system reviewed and no additional complaints, except as documented and Reports as per HPI ENT Ears, Nose, Mouth, and Throat: Reports system reviewed and no additional complaints, except as documented and Reports as per HPI Cardiovascular Cardiovascular: Reports system reviewed and no additional complaints, except as documented and Reports as per HPI Respiratory Respiratory: Reports system reviewed and no additional complaints, except as documented and Reports as per HPI Gastrointestinal Gastrointestingal: Reports system reviewed and no additional complaints, except as documented and as per HPI Musculoskeletal Musculoskeletal: Reports system reviewed and no additional complaints, except as documented, Reports as per HPI and Reports other (pain in right wrist and forearm after falling last week) Physical Exam General General appearance: alert and in no apparent distress ENT ENT exam: Present mucous membranes moist Respiratory Respiratory exam: Present normal lung sounds bilaterally; Absent respiratory distress or wheezes Cardiovascular Cardiovascular exam: Present regular rate, normal rhythm and normal heart sounds Abdominal Exam Abdominal exam: Present soft and normal bowel sounds; Absent distention or tenderness Expanded Upper Extremity Exam Right: Forearm/Wrist exam: Present tenderness, swelling (mild) and ecchymosis L/R Arms Top View: 2 1. reports tenderness and pain with movement Neurological Exam Neurological exam: Present alert, oriented X3 and normal gait Medical Decision Making Medical Records Screening: Per USPSTF and CDC recommendations, given the prevalence of disease in our region, it is our hospital?s policy to screen for HIV and viral Hepatitis for all patients aged 18 and over and those with ongoing risk factors. Willie Inquiry Pt receiving controlled substance: No Willie was queried for this patient: No Vital Signs: 11/27/23 11:58 Temperature 97.9 F Temperature Source Oral Pulse Rate [Radial] 84 Respiratory Rate 16 Blood Pressure [Right Arm] 134/73 Blood Pressure Mean [Right Arm] 93 Blood Pressure Source [Right Arm] Automatic Cuff Blood Pressure Position [Right Arm] Sitting 02 Sat by Pulse Oximetry 98 Oxygen Delivery Method Room Air Orders (Tests/Meds): ORDERS Category Date Time Status Forearm XR right 2 views [XR forearm RT 2V] Stat Exams 11/27/23 11:56 Taken Wrist XR right minimum 3 views [XR wrist RT min 3V] Exams 11/27/23 11:53 Taken Stat XR hand RT min 3V Stat Exams 11/27/23 11:53 Taken Radiology Data #1: Image(s): Hand Image Reviewed: Yes I have reviewed radiologist's interpretation no acute bony abnormality #2: Image(s): Wrist Image Reviewed: Yes I have reviewed radiologist's interpretation no acute bony abnormality #3: Image(s): Forearm Image Reviewed: Yes I have reviewed radiologist's interpretation no acute process Medical Decision Narrative: Patient reports has wrist brace at home
[2023-11-27 13:35] VITALS: BP 134/73; PULSE 84; RESP 16; TEMP 36.6; O2SAT 98
== END 2023-11-27 13:36 | disposition home or self-care (01) ==
PROVIDERS: Emergency Provider Nurse Practitioner; PCP Internal Medicine
DX: S63.501A Unspecified sprain of right wrist, initial encounter (principal); W19.XXXA Unspecified fall, initial encounter
CPT/HCPCS: 73090; 73110; 73130; 99213; G0381

== ENCOUNTER 2023-12-15 10:30 | Emergency (ER) | payer MEDICARE, MEDICAID, SELFPAY ==
[2023-12-15 10:38] VITALS: BP 114/71; PULSE 87; RESP 16; TEMP 36.8; O2SAT 97; BMI 30.9
--- NOTE | 2023-12-15 10:47 | CT_ITS ---
PROCEDURE INFORMATION: Exam: CT Lumbar Spine Without Contrast Exam date and time: 12/15/2023 11:05 AM Age: 68 years old Clinical indication: Pain; Lumbago with sciatica; Left; Additional info: Fall, back pain TECHNIQUE: Imaging protocol: Computed tomography of the lumbar spine without contrast. Radiation optimization: All CT scans at this facility use at least one of these dose optimization techniques: automated exposure control; mA and/or kV adjustment per patient size (includes targeted exams where dose is matched to clinical indication); or iterative reconstruction. COMPARISON: CT ANGIO ABDOMEN PELVIS 09/02/2023 8:04 PM FINDINGS: Bones/joints: No acute or chronic lumbar spine compression fracture is identified. There is minimal retrolisthesis of L5 on S1. Advanced degenerative changes of the lower lumbar spine are noted. At L4-L5, there is vacuum disc phenomenon, moderate diffuse circumferential disc bulging, bilateral foraminal and extraforaminal osteophytic ridging, and moderate facet arthropathy. This is causing moderate spinal canal stenosis, severe narrowing of the subarticular recesses, and moderate bilateral foraminal stenosis. At L5-S1, there is vacuum disc phenomenon, moderate diffuse circumferential disc bulging, circumferential osteophytic ridging, and mild facet arthropathy. There is no significant spinal canal stenosis, but there is moderate narrowing of the subarticular recesses and severe bilateral foraminal stenosis. Vasculature: Atherosclerotic calcifications are noted within the aorta and its branches. Soft tissues: Unremarkable. IMPRESSION: 1. No acute fracture 2. Degenerative changes of the lower lumbar spine as discussed above
--- NOTE | 2023-12-15 10:48 | HMH.EDGENADL ---
Discharge Plan Disposition Patient Disposition: Home, Self-Care Condition: Good Prescriptions Prescriptions: New ketorolac 10 mg tablet 10 mg PO Q8H 5 Days Qty: 15 0RF No Action atorvastatin 80 mg tablet 80 mg PO DAILY Qty: 90 3RF ropinirole 3 mg tablet 3 mg PO DAILY Qty: 90 3RF Venofer 200 mg iron/10 mL solution 200 mg IV WEEKLY Rx Instructions: administer over 30 mins sertraline 100 mg tablet 200 mg PO DAILY azelastine 137 mcg (0.1 %) spray,non-aerosol 2 spray intranasal ONCE albuterol sulfate 90 mcg/actuation HFA aerosol inhaler 2 inh inhalation Q4-6H PRN Trelegy Ellipta 200-62.5-25 mcg blister with device 1 inh inhalation DAILY alcohol swabs [DropSafe Alcohol Prep Pads] Pads, Medicated topical ipratropium-albuterol 0.5 mg-3 mg(2.5 mg base)/3 mL solution for nebulization 3 ml inhalation Q4-6H PRN Patient Comments: USE 3 ML VIA NEBULIZER FOUR TIMES DAILY NEEDED (DME) lancets [Accu-Chek Softclix Lancets] Misc See Rx Instructions .ROUTE .MEDSUPPLY Qty: 100 Rx Instructions: As directed (DME) Accu-Chek Guide test strips Strip See Rx Instructions .ROUTE .MEDSUPPLY Qty: 10 Rx Instructions: As directed (DME) BD Luer-Konrad Syringe 3 mL 23 x 1 syringe See Rx Instructions .ROUTE .MEDSUPPLY Qty: 1 Patient Comments: USE DIRECTED ONCE WEEKLY FOR B12 INJECTIONS Rx Instructions: As directed (DME) blood-glucose meter [Accu-Chek Guide Me Glucose Mtr] Misc See Rx Instructions .ROUTE .MEDSUPPLY Qty: 1 Rx Instructions: As directed promethazine 25 mg tablet 25 mg PO Q8H PRN (Reason: motion sickness) Qty: 60 0RF Vyepti 100 mg/mL solution 100 mg IV [id number] Rx Instructions: administer over 30 mins famotidine 20 mg tablet 20 mg PO BID Qty: 180 3RF clonazepam [Klonopin] 1 mg tablet 1 mg PO BID Qty: 60 2RF cholecalciferol (vitamin D3) 50 mcg (2,000 unit) capsule 50 mcg PO DAILY Qty: 90 3RF coQ10 (ubiquinol) [Qunol Sharan CoQ10] 100 mg capsule 100 mg PO BID Qty: 180 3RF meclizine 25 mg tablet 25 mg PO Q6HP PRN (Reason: dizziness) Qty: 90 0RF Trulicity 0.75 mg/0.5 mL pen injector 0.75 mg SQ QWEEK Qty: 6 3RF Referrals Follow up/Referrals: Akin Everett DO [Primary Care Provider] - See instructions Activity Restrictions/Add. Instructions Additional Instructions/Restrictions: Follow-up with your primary care physician if symptoms do not improve. Continue to walk and stretch the legs is much as possible. You can take the Toradol prescribed to you for pain. You can also use ice packs and heating pads to help with symptoms. If you develop any new or worsening symptoms, or if you become concerned for your health for any reason, return to the emergency department for evaluation. Clinical Impressions Clinical Impression: Low back pain radiating down leg Print Language Print Language: [place] Discharge ED Provider: Shar Rodriguez Adult HPI General Chief complaint: PAIN Stated complaint: sciatic pain Time Seen by Provider: 12/15/23 10:38 Mode of Arrival: Ambulatory Source of Information: Patient Limitations: No Limitations Description of Symptoms (Recalled from ER Triage Doc. by RN): pt has a hx of vertigo and states it caused her to fall two nights ago. pt states her vertigo has been worse the last few weeks. pt is now c/o L lower back/hip pain that radiates distally. pt states her pain is 9.5/10 and sharp. pt saw her pcp yesterday and was given torodol/steroid injections. pt states this helped for a few hours but came back with a vengence. History of Present Illness HPI narrative: Cecile Escobedo is a 68F with a past medical history of GERD, type 2 diabetes, COPD, back pain who presents to the emergency department for 2 days of lower back pain that radiates down her left leg. Patient states that over the last 2 weeks, she has had vertigo that has improved after taking medication as prescribed by her primary care physician, however she had a fall after vertigo episode 2 days ago that caused her to fall, landing on her left hip/lower back. Since then, she has had lower back pain that radiates down her left leg. She was seen by her primary care physician yesterday and was told that her pain was likely sciatica and she was given Toradol shot and steroids and stated that she had a couple hours of relief, however she did not sleep last night secondary to the pain. She attempted to go back this morning, however they told her that they were fully booked and recommended she come to the emergency department. Patient denies any urinary incontinence, bowel incontinence, constipation, urinary retention, numbness or tingling. Related Data Home Medications ?Medication ?Instructions ?Recorded ?Confirmed albuterol sulfate 90 mcg/actuation 2 inh inhalation Q4-6H PRN 10/30/23 12/14/23 aerosol inhaler alcohol swabs (DropSafe Alcohol pad topical 10/30/23 12/14/23 Prep Pads) azelastine 137 mcg (0.1 %) nasal 2 spray intranasal ONCE 10/30/23 12/14/23 spray blood sugar diagnostic (Accu-Chek #10 ea 10/30/23 12/14/23 Guide test strips) blood-glucose meter (Accu-Chek #1 ea 10/30/23 12/14/23 Guide Me Glucose Meter) eptinezumab-jjmr 100 mg/mL 100 mg IV [id number] 10/30/23 12/14/23 intravenous solution (Vyepti) fluticasone fur. 200 mcg-umeclid 1 inh inhalation DAILY 10/30/23 12/14/23 62.5 mcg-vilant 25 mcg inhalat.powder (Trelegy Ellipta) ipratropium 0.5 mg-albuterol 3 mg 3 ml inhalation Q4-6H PRN 10/30/23 12/14/23 (2.5 mg base)/3 mL nebulization soln lancets (Accu-Chek Softclix #100 ea 10/30/23 12/14/23 Lancets) sertraline 100 mg tablet 200 mg PO DAILY 10/30/23 12/14/23 syringe with needle 3 mL 23 x 1 #1 ea 10/30/23 12/14/23 (BD Luer-Konrad Syringe) Previous Rx's ?Medication ?Instructions ?Recorded atorvastatin 80 mg tablet 80 mg PO DAILY #90 tabs 01/24/22 promethazine 25 mg tablet 25 mg PO Q8H PRN motion sickness 10/30/23 #60 tabs cholecalciferol (vitamin D3) 50 50 mcg PO DAILY #90 caps 10/31/23 mcg (2,000 unit) capsule coQ10 (ubiquinol) 100 mg capsule 100 mg PO BID #180 caps 10/31/23 (Qunol Sharan CoQ10) meclizine 25 mg tablet 25 mg PO Q6HP PRN dizziness #90 11/03/23 tabs dulaglutide 0.75 mg/0.5 mL 0.75 mg (0.5 mL) SQ QWEEK #6 mL 11/07/23 subcutaneous pen injector (Trulicity) clonazepam 1 mg tablet (Klonopin) 1 mg PO BID #60 tabs 11/16/23 famotidine 20 mg tablet 20 mg PO BID #180 tabs 11/16/23 iron sucrose 200 mg iron/10 mL 200 mg (10 mL) IV WEEKLY 5 doses 12/14/23 intravenous solution (Venofer) ropinirole 3 mg tablet 3 mg PO DAILY #90 tabs 12/14/23 ketorolac 10 mg tablet 10 mg PO Q8H 5 days #15 tabs 12/15/23 Allergies Allergy/AdvReac Type Severity Reaction Status Date / Time acetaminophen [From Lortab] Allergy Intermediate Verified 12/14/23 10:27 hydrocodone [From Lortab] Allergy Intermediate Verified 12/14/23 10:27 codeine AdvReac Severe Verified 12/14/23 10:27 hydromorphone [From Dilaudid] AdvReac Severe Verified 12/14/23 10:27 morphine AdvReac Severe Verified 12/14/23 10:27 oxycodone AdvReac Severe Verified 12/14/23 10:27 ondansetron [From Zofran] AdvReac Intermediate Verified 12/14/23 10:27 PFS PFS Disclaimer: The information contained in this section may have been updated after the patient was seen, as this information can be updated by other users. Medical History MDD (major depressive disorder) Mood disorder On SSRI. Declined refrerral to coounselor or Behavioral Health. Sprain of right wrist Episodic migraine Acute UTI Back pain Allergic reaction Chest pain at rest Back pain Chest pain Chest pain Indigestion Atypical chest pain Seizure disorder History of seizure in 2014, unable to provide further information. Records from [facility] requested Tremor History familial tremor. No significant improvement noticed with Topiramate, (relative contraindication the patient with history of anorexia nervosa documented on PMH) Hernia Urinary incontinence, mixed GERD (gastroesophageal reflux disease) Anxiety and depression Type 2 diabetes mellitus COPD (chronic obstructive pulmonary disease) Hyperlipidemia Migraine headache Surgical History H/O hernia repair H/O: hysterectomy History of cholecystectomy Hx of appendectomy History of bladder surgery H/O neck surgery Family History Other Cancer Diabetes Social History Smoking Status: Never smoker alcohol intake: never substance use type: denies use current occupational status: disabled Travel in the last 8 weeks: None household members: significant other housing: house marital status: Other Medical History Have you received the Pneumonia Vaccine: No ROS Obtained: Yes Systems reviewed as appropriate & no additional complaints except as documented Physical Exam General General appearance: alert Comment: appears uncomfortable Head Head exam: atraumatic Eye Eye exam: Present normal appearance ENT ENT exam: Present normal external ear exam Neck Neck exam: Present full ROM Chest Chest inspection: Present symmetric chest wall rise Respiratory Respiratory exam: Present normal lung sounds bilaterally; Absent respiratory distress Cardiovascular Cardiovascular exam: Present regular rate and normal rhythm Abdominal Exam Abdominal exam: Present soft; Absent tenderness or guarding Extremities Exam Extremities exam: Present normal inspection Back Exam Back exam: Present normal inspection and tenderness (left lumbar paraspinal region. No midline tenderenss) Neurological Exam Neurological exam: Present alert, oriented X3 and other (5 out of 5 strength in bilateral lower extremities with extension at the knees and hips. Sensation 5 out of 5 in bilateral lower extremities) Psychiatric Psychiatric exam: Present normal affect Skin Skin exam: Present warm and dry Medical Decision Making Medical Records Screening: Per USPSTF and CDC recommendations, given the prevalence of disease in our region, it is our hospital?s policy to screen for HIV and viral Hepatitis for all patients aged 18 and over and those with ongoing risk factors. Willie Inquiry Pt receiving controlled substance: No Vital Signs: 12/15/23 10:38 12/15/23 11:00 12/15/23 12:46 Temperature 98.3 F 98.0 F Temperature Source Oral Oral Pulse Rate 83 71 Pulse Rate [Left] 87 Respiratory Rate 16 16 Blood Pressure 119/69 124/7 L Blood Pressure [Right Arm] 114/71 Blood Pressure Mean 77 Blood Pressure Mean [Right Arm] 85 Blood Pressure Source Automatic Cuff Blood Pressure Source [Right Arm] Automatic Cuff Blood Pressure Position Sitting Blood Pressure Position [Right Arm] Sitting 02 Sat by Pulse Oximetry 97 96 Oxygen Delivery Method Room Air Room Air Room Air Orders (Tests/Meds): ED MEDICATIONS Discontinued Medications Generic Name Dose Route Start Last Admin Trade Name Frerick PRN Reason Stop Dose Admin Ketorolac Tromethamine 15 mg 12/15/23 10:47 12/15/23 10:56 Ketorolac 30mg/Ml Vial IM 12/15/23 10:48 15 mg ONCE ONE Administration ORDERS Category Date Time Status CT lumbar spine wo con Stat Cat Scan 12/15/23 10:47 Completed Medical Decision Narrative: Cecile Escobedo is a 68F with a history of chronic back pain, type 2 diabetes, anxiety, GERD, COPD, hyperlipidemia who presents to the emergency department for complaints of 2 days of lower back pain that radiates down her left leg after a fall. Patient states that she has been able to ambulate and that the pain is somewhat better when she walks. She states that the pain radiates all the way down her left leg to her foot. She denies any red flag symptoms for cauda equina. She states that she was seen by her primary care physician yesterday and received steroids and Toradol that provided some relief for approximately 2 hours, however she was unable to sleep last night. She was unable to get in with them again today and they told her to come to the emergency department for evaluation. On arrival, patient is hemodynamically stable, in no acute respiratory distress, breathing comfortably on room air. Physical exam, stated above, revealed an overall well-appearing female in no respiratory distress. She has tenderness to palpation over the left paraspinal area, 5 out of 5 Differential diagnosis include: Sciatica, herniated disc, lumbar fracture, soft tissue injury, among others Workup in the emergency department included: CT lumbar spine without contrast. Lab work was considered, however given the nature of the patient's complaints, reassuring vital signs, and lack of red flag symptoms, these would not change management manager and are not indicated at this time. Patient was treated symptomatically with 15 mg of IM Toradol. CT imaging was interpreted by me personally demonstrates no acute fracture or malalignment of the lumbar spine. See radiology report for final details. Is felt that the patient symptoms are likely secondary to sciatica without any red flag symptoms. There is very low concern for cauda equina at this time. Patient is being discharged with a prescription for Toradol p.o. as she states that this has helped previously. She was encouraged to follow-up with her primary care physician. Return precautions were given. All questions were answered. She demonstrated understanding and was agreement this plan. She remained hemodynamically stable throughout her entire ED visit and was appropriate for discharge at this time Critical Care Critical Care Time Critical Care Time: No
[2023-12-15] MEDS: KETOROLAC 30MG/ML VIAL 15 MG IM (10:56)
[2023-12-15 11:00] VITALS: BP 119/69; PULSE 83; O2SAT 96
--- NOTE | 2023-12-15 11:01 | PC.NURSE ---
Pt ambulatory to RAD with staff
--- NOTE | 2023-12-15 11:33 | PC.NURSE ---
rounded on patient; no needs at this time. Call light within reach
[2023-12-15 12:46] VITALS: BP 124/7; PULSE 71; RESP 16; TEMP 36.7; O2SAT 96
== END 2023-12-15 12:46 | disposition home or self-care (01) ==
PROVIDERS: Emergency Provider Student in an Organized Health Care Education/Training Program; PCP Internal Medicine
DX: M54.50 Low back pain, unspecified (principal); R42 Dizziness and giddiness; M25.552 Pain in left hip
CPT/HCPCS: 72131; 96372; 99284; J1885

== ENCOUNTER 2024-01-02 11:35 | Outpatient (CLI) | payer MEDICARE, MEDICAID, SELFPAY ==
[2024-01-02 11:50] VITALS: BP 128/75; PULSE 81; TEMP 36.8; O2SAT 98
[2024-01-02] MEDS: IRON SUCROSE COMPLEX 200 MG in 0.9 % SODIUM CHLORIDE 100 ML 220 MG IV (11:50)
[2024-01-02] MEDS: SODIUM CHLORIDE 0.9% 50ML BAG 50 ML IV (11:50)
[2024-01-02] MEDS: SODIUM CHLORIDE 0.9% 10ML FLUSH SYRINGE 10 ML IV (11:51)
[2024-01-02 12:25] VITALS: BP 131/71; PULSE 75; RESP 17; O2SAT 98
== END 2024-01-02 12:25 | disposition home or self-care (01) ==
LOC: INF 11:35
PROVIDERS: PCP Nurse Practitioner Family; Visit Provider Nurse Practitioner Family
DX: E61.1 Iron deficiency (principal)
CPT/HCPCS: 96365; J1756

== ENCOUNTER 2024-01-09 11:45 | Outpatient (CLI) | payer MEDICARE, MEDICAID, SELFPAY ==
[2024-01-09 12:14] VITALS: BP 126/71; PULSE 92; RESP 17; TEMP 36.3; O2SAT 94
[2024-01-09] MEDS: SODIUM CHLORIDE 0.9% 50ML BAG 50 ML IV (12:14)
[2024-01-09] MEDS: IRON SUCROSE COMPLEX 200 MG in 0.9 % SODIUM CHLORIDE 100 ML 220 MG IV (12:15)
[2024-01-09 12:55] VITALS: BP 128/73; PULSE 90; RESP 18; O2SAT 94
== END 2024-01-09 12:55 | disposition home or self-care (01) ==
LOC: INF 11:46
PROVIDERS: PCP Nurse Practitioner Family; Visit Provider Nurse Practitioner Family
DX: D50.9 Iron deficiency anemia, unspecified (principal)
CPT/HCPCS: 96365; J1756

== ENCOUNTER 2024-01-23 10:44 | Outpatient (CLI) | payer MEDICARE, MEDICAID, SELFPAY ==
[2024-01-23 11:15] VITALS: BP 114/68; PULSE 72; RESP 18; TEMP 36.4; O2SAT 98; BMI 25.7
[2024-01-23] MEDS: SODIUM CHLORIDE 0.9% 50ML BAG 50 ML IV (11:15)
[2024-01-23] MEDS: IRON SUCROSE COMPLEX 200 MG in 0.9 % SODIUM CHLORIDE 100 ML 220 MG IV (11:15)
[2024-01-23 12:12] VITALS: BP 121/64; PULSE 84; RESP 18; O2SAT 97
== END 2024-01-23 12:13 | disposition home or self-care (01) ==
LOC: INF 10:44
PROVIDERS: PCP Nurse Practitioner Family; Visit Provider Nurse Practitioner Family
DX: D50.9 Iron deficiency anemia, unspecified (principal)
CPT/HCPCS: 96365; J1756

== ENCOUNTER 2024-01-29 14:40 | Outpatient (CLI) | payer MEDICARE, MEDICAID, SELFPAY ==
[2024-01-29 13:21] LABS: Microscopic, Urine URINE MICROSCOPIC (MICROSCOPIC)
[2024-01-29 14:31] LABS: Appearance,Urine CLEAR (Clear); Bilirubin,Urine Negative (Negative); Blood, Urine Negative (Negative); Color,Urine YELLOW (Yellow); Glucose,Urine (UA) Negative (Negative); Ketones,Urine Negative (Negative); Leukocyte Esterase,Urine Negative (Negative); Nitrate,Urine Negative (Negative); Protein,Urine Negative (Negative); Urobilinogen,Urine 0.2 EU/dl (0.2)
[2024-01-29 14:58] LABS: Chloride 107 mmol/L (98-107); Potassium 4.6 mmoL/L (3.5-5.1); Sodium 140 mmol/L (136-145)
[2024-01-29 15:00] LABS: Blood Urea Nitrogen 5 mg/dl (7-17); Estimated Glomerular Filt Rate 123 ml/min (>60); GFR (African American) 149 ML/MIN (>60)
[2024-01-29 15:01] LABS: Calcium 9.3 mg/dl (8.4-10.2); Chol/HDL Ratio 3.6 (1-3.5); Cholesterol 155 mg/dl (140-200); Glucose 107 mg/dl (74-100); HDL Cholesterol 43 mg/dl (40-60); Triglycerides 305 mg/dl (30-150); VLDL Cholesterol 61 mg/dL (0-40)
[2024-01-29 15:12] LABS: Direct LDL Cholesterol 59.99 mg/dL (100-129)
[2024-01-29 15:39] LABS: Squamous Epithelial Cell,Urine Occasional #/hpf (0-5); WBC,Urine Occasional #/hpf (0-3)
[2024-01-29 16:13] LABS: Hemoglobin A1C 6.9 % (4.0-6.0)
[2024-01-29 16:38] LABS: Anion Gap 11.6 mEq/L (5-15); Carbon Dioxide 26 mmol/L (22.0-30.0)
[2024-01-29 16:50] LABS: 25-OH Vitamin D, Total 28.7 ng/mL (30-100)
== END 2024-01-29 23:59 | disposition home or self-care (01) ==
LOC: LAB.DROPOF 14:41
PROVIDERS: PCP Nurse Practitioner Family; Visit Provider Nurse Practitioner Family
DX: E11.9 Type 2 diabetes mellitus without complications (principal); R39.9 Unspecified symptoms and signs involving the genitourinary system; E55.9 Vitamin D deficiency, unspecified; E78.5 Hyperlipidemia, unspecified
CPT/HCPCS: 80048; 80061; 81001; 82306; 83036; 87086

== ENCOUNTER 2024-02-05 09:42 | Outpatient (POV) | payer MEDICARE, MEDICAID, SELFPAY ==
--- NOTE | 2024-02-05 10:02 | A.OFFVIS_ITS ---
HPI Data of Consult Patient: new to practice Consult date: 02/05/24 Requesting Physician: Cheyenne Goldberg APRN Primary Care Provider: Torie Duong APRN Consult Narrative Reason for consult: Chronic neck pain, history cervical fusion, low back pain History of present illness: Ms. Escobedo is a 68 year old female who presents today as a new patient. She is a referral from Nena Duong's office. Today she rates her pain a 9 out of 10. Patient does state that she has chronic neck pain as well as low back pain however she is only wanting to address the neck issues. Patient states this been going on for years and progressively worsened. She does describe it as a sharp sensation that is worse with certain movements such as bending, twisting or looking up and down. She does state that this causes severe pain and increased migraines. She also complains of popping and catching sensations with these movements. Patient did previously have a cervical fusion about 12 years ago and that it is progressed since. Patient does also state that she has had some numbness and tingling into her bilateral hands and going down her left arm however this is not constant and comes and goes. She does state overall the worst pain is they are just at her neck and states it does interfere with her ability perform activities of daily living such as cooking and cleaning. Patient denies any prior injection history here. She does use oral medications such as Tylenol and ibuprofen along with heat and ice and topicals with only temporary relief. Patient has had physical therapy and states it did help just a little bit. Patient does continue to use a TENS unit at home along with a massager with heat that just helps in the moment. Patient has tried Bengay and lidocaine patches with minimal improvement. Patient is currently managed with clonazepam from an outside provider. Her Willie has been reviewed and is sonido ropriate. CC: Cheyenne Goldberg APRN [facility] Disclaimer: The information contained in this section may have been updated after the patient was seen, as this information can be updated by other users. Medical History Acute UTI Allergic reaction Anxiety and depression Atypical chest pain Back pain Back pain Chest pain Chest pain Chest pain at rest Closed fracture of right distal radius COPD (chronic obstructive pulmonary disease) Episodic migraine GERD (gastroesophageal reflux disease) Hernia Hyperlipidemia Indigestion MDD (major depressive disorder) Migraine headache Mood disorder On SSRI. Declined refrerral to coounselor or Behavioral Health. Seizure disorder History of seizure in 2015, unable to provide further information. Records from [facility] requested Sprain of right wrist Tremor History familial tremor. No significant improvement noticed with Topiramate, (relative contraindication the patient with history of anorexia nervosa documented on PMH) Type 2 diabetes mellitus Urinary incontinence, mixed Surgical History H/O hernia repair H/O neck surgery H/O: hysterectomy History of bladder surgery History of cholecystectomy Hx of appendectomy Family History Other Cancer Diabetes Social History Smoking Status: Never smoker alcohol intake: never substance use type: denies use current occupational status: disabled Travel in the last 8 weeks: None household members: significant other housing: house marital status: Review of Systems Review of Systems Review of systems:: pertinent systems reviewed and negative unless documented below Review of systems (narrative): Review of Systems: General: No recent weight changes, no fever, no sleep disturbances Respiratory: No cough, no shortness of air, no recurring pulmonary infections Cardiovascular/peripheral vascular: No chest pain, no palpitations, no edema, no shortness of breath Gastrointestinal: No new onset incontinence, normal bowel movements reported Genitourinary: No new onset incontinence Musculoskeletal: Neck pain, chronic back pain, migraine Psychiatric: [Normal mood/affect] Neurological: [Denies weakness in extremities], [denies balance issues] Meds Home Medications and Allergies Home Medications ?Medication ?Instructions ?Recorded ?Confirmed ?Type atorvastatin 80 mg tablet 80 mg PO DAILY #90 tabs 01/24/22 01/29/24 Rx albuterol sulfate 90 mcg/actuation 2 inh inhalation Q4-6H PRN 10/30/23 01/29/24 History aerosol inhaler alcohol swabs (DropSafe Alcohol pad topical 10/30/23 01/29/24 History Prep Pads) azelastine 137 mcg (0.1 %) nasal 2 spray intranasal ONCE 10/30/23 01/29/24 History spray blood sugar diagnostic (Accu-Chek #10 ea 10/30/23 01/29/24 History Guide test strips) blood-glucose meter (Accu-Chek #1 ea 10/30/23 01/29/24 History Guide Me Glucose Meter) eptinezumab-jjmr 100 mg/mL 100 mg IV [id number] 10/30/23 01/29/24 History intravenous solution (Vyepti) fluticasone fur. 200 mcg-umeclid 1 inh inhalation DAILY 10/30/23 01/29/24 History 62.5 mcg-vilant 25 mcg inhalat.powder (Trelegy Ellipta) ipratropium 0.5 mg-albuterol 3 mg 3 ml inhalation Q4-6H PRN 10/30/23 01/29/24 History (2.5 mg base)/3 mL nebulization soln lancets (Accu-Chek Softclix #100 ea 10/30/23 01/29/24 History Lancets) sertraline 100 mg tablet 200 mg PO DAILY 10/30/23 01/29/24 History syringe with needle 3 mL 23 x 1 #1 ea 10/30/23 01/29/24 History (BD Luer-Konrad Syringe) cholecalciferol (vitamin D3) 50 50 mcg PO DAILY #90 caps 10/31/23 01/29/24 Rx mcg (2,000 unit) capsule coQ10 (ubiquinol) 100 mg capsule 100 mg PO BID #180 caps 10/31/23 01/29/24 Rx (Qunol Sharan CoQ10) famotidine 20 mg tablet 20 mg PO BID #180 tabs 11/16/23 01/29/24 Rx iron sucrose 200 mg iron/10 mL 200 mg (10 mL) IV WEEKLY 5 doses 12/14/23 01/29/24 Rx intravenous solution (Venofer) ropinirole 3 mg tablet 3 mg PO DAILY #90 tabs 12/14/23 01/29/24 Rx meclizine 25 mg tablet See Rx Instructions .Route 12/27/23 01/29/24 Rx .COMPLEX #90 tabs bupropion HCl 150 mg tablet,12 hr 150 mg PO BID #180 ea 01/29/24 01/29/24 Rx sustained-release (Wellbutrin SR) dulaglutide 1.5 mg/0.5 mL 1.5 mg (0.5 mL) SQ WEEKLY #2 mL 01/29/24 01/29/24 Rx subcutaneous pen injector (Trulicity) topiramate 100 mg tablet (Topamax) 100 mg PO BID #180 tabs 01/29/24 01/29/24 Rx promethazine 25 mg tablet See Rx Instructions .Route 01/30/24 Rx .COMPLEX #60 tabs clonazepam 1 mg tablet (Klonopin) 1 mg PO BID #10 tabs 01/31/24 Rx New Prescriptions to Start Prescriptions: Allergies Allergy/AdvReac Type Severity Reaction Status Date / Time acetaminophen (From Lortab) Allergy Intermediate Verified 01/29/24 09:15 hydrocodone (From Lortab) Allergy Intermediate Verified 01/29/24 09:15 codeine AdvReac Severe Verified 01/29/24 09:15 hydromorphone (From Dilaudid) AdvReac Severe Verified 01/29/24 09:15 morphine AdvReac Severe Verified 01/29/24 09:15 oxycodone AdvReac Severe Verified 01/29/24 09:15 ondansetron (From Zofran) AdvReac Intermediate Verified 01/29/24 09:15 Objective Narrative: Physical Exam: General: Alert and oriented x3, no acute distress, pleasant and cooperative Lungs: Respirations even and unlabored, symmetrical chest expansion Eyes: PERRL Musculoskeletal: Flexion and extension of cervical [spine] somewhat guarded secondary to pain, [antalgic gait noted] positive Kemps test Neurological: Speech clear, no gross sensory deficit Additional findings Additional findings: FINDINGS: Three views of the cervical spine were obtained. There is fusion of C5, C6, and C7. There is no fracture present. There is no malalignment. There is mild degenerative change. IMPRESSION: Postoperative and degenerative changes without acute process. Reviewed, Interpreted and Dictated by Chester Ceja III, MD Transcribed by Estrella Helms Authenticated and [facility] FINDINGS: Bones/joints: No acute or chronic lumbar spine compression fracture is identified. There is minimal retrolisthesis of L5 on S1. Advanced degenerative changes of the lower lumbar spine are noted. At L4-L5, there is vacuum disc phenomenon, moderate diffuse circumferential disc bulging, bilateral foraminal and extraforaminal osteophytic ridging, and moderate facet arthropathy. This is causing moderate spinal canal stenosis, severe narrowing of the subarticular recesses, and moderate bilateral foraminal stenosis. At L5-S1, there is vacuum disc phenomenon, moderate diffuse circumferential disc bulging, circumferential osteophytic ridging, and mild facet arthropathy. There is no significant spinal canal stenosis, but there is moderate narrowing of the subarticular recesses and severe bilateral foraminal stenosis. Vasculature: Atherosclerotic calcifications are noted within the aorta and its branches. Soft tissues: Unremarkable. IMPRESSION: 1. No acute fracture 2. Degenerative changes of the lower lumbar spine as discussed above 12 Assessment and Plan *Assessment and plan (1) Degenerative disc disease, lumbar: Status: Acute Category: Medical Code(s): M51.369 - Other intervertebral disc degeneration, lumbar region without mention of lumbar back pain or lower extremity pain (2) Lumbar spinal stenosis: Status: Acute Category: Medical Code(s): M48.061 - Spinal stenosis, lumbar region without neurogenic claudication (3) Neck pain: Problem Comment: Unable to tolerate tizanidine due to dizziness. Status: Chronic Category: Medical Code(s): M54.2 - Cervicalgia (4) Facet arthropathy, cervical: Status: Acute Category: Medical Code(s): M47.812 - Spondylosis without myelopathy or radiculopathy, cervical region (5) History of fusion of cervical spine: Status: Acute Category: Surgical Code(s): Z98.1 - Arthrodesis status (6) Cervicogenic headache: Problem Comment: 04/24/2023: Reports good response to tizanidine 4 mg p.o. nightly. New prescription for 4 mg tablet was sent to her pharmacy. Indication, possible side effects include but not limited to drowsiness, sleepiness or daytime were disclosed to the patient today. Advised to avoid driving if drowsiness, sleepiness is present. She forgot to go to physical therapy. 03/11/2023: She was started on Tizanidine, 2-4 mg po qhs and referred to PT for evaluation, treatment and consideration of needling Status: Chronic Category: Medical Code(s): G44.86 - Cervicogenic headache Plan Patient is experiencing significant pain throughout her neck that does get worse with certain movements such as bending or twisting. Patient did have limited range of motion of her cervical spine with a positive Kemps test. I did discuss with patient that I do believe she would benefit from cervical medial branch blocks with possible RFA. Patient was counseled that we will do a diagnostic block and if she has significant relief would plan to proceed forward with a second block in future RFA. Patient agrees with this plan of care. Risk and benefits were discussed with the patient and she would like to proceed forward. Patient has tried and failed conservative therapy including oral medications, heat and ice, topicals, physical therapy, continued at home exercising and stretching for longer than 12 weeks. Patient has also had previous cervical fusion. Patient will be ordered a compounded cream and scheduled for her first cervical medial branch block bilaterally C4-C5 and C5-C6 under fluoroscopy. Patient has been instructed to contact the clinic with any concerns before the next appointment. Dr. Sheehan has reviewed this note and agrees with this plan of care. This note was dictated using voice recognition software and make contain errors or omissions. All injections are used with Lidocaine, Bupivacaine and Depo Medrol. Occasionally urine drug screen is needed to verify patient's compliance with our office pain contract. This is ordered based off specific treatments related to chronic pain with the potential to abuse certain medications.
[2024-02-05 10:42] VITALS: BP 128/67; PULSE 90; RESP 18; O2SAT 97; BMI 26.9
== END 2024-02-05 23:59 | disposition home or self-care (01) ==
LOC: SC.PAIN 09:43
PROVIDERS: PCP Nurse Practitioner Family; Visit Provider Nurse Practitioner Family
DX: M51.369 Other intervertebral disc degeneration, lumbar region without mention of lumbar back pain or lower extremity pain (principal); M48.061 Spinal stenosis, lumbar region without neurogenic claudication; M54.2 Cervicalgia; M47.812 Spondylosis without myelopathy or radiculopathy, cervical region; Z98.1 Arthrodesis status; G44.86 Cervicogenic headache; Z73.89 Other problems related to life management difficulty; Z79.899 Other long term (current) drug therapy
CPT/HCPCS: 99202; G0463

== ENCOUNTER 2024-02-06 09:30 | Outpatient (CLI) | payer MEDICARE, MEDICAID, SELFPAY ==
[2024-02-06 10:00] VITALS: BP 118/67; PULSE 78; RESP 18; TEMP 37; O2SAT 98
[2024-02-06] MEDS: IRON SUCROSE COMPLEX 200 MG in 0.9 % SODIUM CHLORIDE 100 ML 220 MG IV (10:00)
[2024-02-06] MEDS: SODIUM CHLORIDE 0.9% 50ML BAG 50 ML IV (10:00)
[2024-02-06 10:35] VITALS: BP 124/72; PULSE 70
== END 2024-02-06 10:41 | disposition home or self-care (01) ==
LOC: INF 09:31
PROVIDERS: PCP Nurse Practitioner Family; Visit Provider Nurse Practitioner Family
DX: E61.1 Iron deficiency (principal)
CPT/HCPCS: 96365; J1756

== ENCOUNTER 2024-02-12 12:54 | Outpatient (CLI) | payer MEDICARE, MEDICAID, SELFPAY ==
[2024-02-12 13:09] VITALS: BP 109/65; PULSE 84; RESP 16; TEMP 36.9; O2SAT 96
[2024-02-12] MEDS: SODIUM CHLORIDE 0.9% 50ML BAG 50 ML IV (13:09)
[2024-02-12] MEDS: SODIUM CHLORIDE 0.9% IV (13:09)
[2024-02-12] MEDS: EPTINEZUMAB JJMR IV (13:09)
[2024-02-12] MEDS: SODIUM CHLORIDE 0.9% 10ML FLUSH SYRINGE 10 ML IV (13:09)
[2024-02-12 13:50] VITALS: BP 119/65; PULSE 79; RESP 16; TEMP 36.9; O2SAT 96
== END 2024-02-12 13:50 | disposition home or self-care (01) ==
LOC: INF 12:54
PROVIDERS: PCP Nurse Practitioner Family; Visit Provider Specialist
DX: G44.86 Cervicogenic headache (principal)
CPT/HCPCS: 96365; J3032

== ENCOUNTER 2024-02-15 11:15 | Outpatient (CLI) | payer MEDICARE, MEDICAID, SELFPAY ==
[2024-02-15] MEDS: SODIUM CHLORIDE 0.9% 50ML BAG 50 ML IV (11:37)
[2024-02-15] MEDS: IRON SUCROSE COMPLEX 200 MG in 0.9 % SODIUM CHLORIDE 100 ML 220 MG IV (11:38)
[2024-02-15 11:40] VITALS: BP 105/67; PULSE 75; RESP 18; TEMP 36.1; O2SAT 98
[2024-02-15 12:21] VITALS: BP 123/69; PULSE 77; RESP 18; O2SAT 98
== END 2024-02-15 12:21 | disposition home or self-care (01) ==
LOC: INF 11:16
PROVIDERS: PCP Nurse Practitioner Family; Visit Provider Nurse Practitioner Family
DX: E61.1 Iron deficiency (principal)
CPT/HCPCS: 96365; J1756

== ENCOUNTER 2024-02-27 12:16 | Day surgery (SDC) | payer MEDICARE, MEDICAID, SELFPAY ==
[2024-02-27 13:22] VITALS: BP 128/70; PULSE 83; RESP 16; TEMP 36.6; O2SAT 97; BMI 26.2
[2024-02-27] MEDS: IOPAMIDOL-200 (41%);10ML VIAL 2 ML IV (13:25)
[2024-02-27] MEDS: methylPREDNISolone ACETATE 80MG/ML VIAL 80 MG (13:32)
[2024-02-27] MEDS: BUPIVACAINE 0.25% 10ML INJ 25 MG IJ (13:32)
[2024-02-27] MEDS: LIDOCAINE 1% 5ML PF VIAL 5 ML (13:32)
[2024-02-27 13:34] VITALS: BP 131/76; PULSE 83; RESP 18; O2SAT 97
[2024-02-27 13:37] VITALS: BP 131/76; PULSE 83; RESP 18; O2SAT 97
[2024-02-27 13:46] LABS: POC Glucose,Bedside 89 (70-110)
[2024-02-27 13:50] VITALS: BP 130/72; PULSE 81; RESP 16; O2SAT 96
--- NOTE | 2024-02-27 13:52 | P.PCN_ITS ---
Procedure Date: 02/27/24 Time: 13:40 Anesthesiologist:: Kunal Lorenzo CRNA Complications:: None Pre-procedure Diagnosis:: Degenerative disc cervical spine multilevels. Cervical radiculopathy. Cervical postlaminectomy syndrome. Cervical spondylosis. Multilevel cervical facet arthropathy. Post-procedure Diagnosis:: Same. Indications for Procedure:: Patient is a pleasant 69-year-old female who comes our clinic today for ROUND ONE of cervical facet blocks/medial branch blocks bilaterally C4-5, C5-6. Patient is status post three-level ACDF. Continues to have pain with cervical flexion, extension, left and right rotation. She rates her pain 7/10. Procedure Details:: Procedure Details:: Informed consent was obtained and the risk and benefits of the procedure was explained to the patient. Patient was taken to the procedure room where noninvasive monitors were placed, including noninvasive blood pressure cuff as well as pulse oximeter. The area over the posterior cervical spine was cleansed using chlorhexidine as a cleansing solution. I anesthetized the skin and subcutaneous tissues with 1% Lidocaine. I placed 25 -gauge spinal needles into the facet joint/ medial branches of C4-5, C5-6 bilaterally. Needle placement was confirmed with fluoroscopy. After confirmation of needle placement, each site was injected with 1 mL of 1% lidocaine and 0.25 % Marcaine and 10 mg of Depo- Medrol. A total of 20 mg of depo medrol was used for bilateral medial branch blocks of C4-5, C5-6 bilaterally. Patient tolerated the procedure without difficulty. There were no complications. Plan and Disposition:: Patient was discharged without incident.
== END 2024-02-27 13:50 | disposition home or self-care (01) ==
PROVIDERS: PCP Nurse Practitioner Family; Visit Provider Nurse Anesthetist, Certified Registered
DX: M47.812 Spondylosis without myelopathy or radiculopathy, cervical region (principal); M50.30 Other cervical disc degeneration, unspecified cervical region; M96.1 Postlaminectomy syndrome, not elsewhere classified; Z98.1 Arthrodesis status
CPT/HCPCS: 64490; 64491; 82962; J1010; Q9966

== ENCOUNTER 2024-03-13 13:28 | Outpatient (POV) | payer MEDICARE, MEDICAID, SELFPAY ==
--- NOTE | 2024-03-13 15:06 | A.OFFVIS_ITS ---
[facility] Disclaimer: The information contained in this section may have been updated after the patient was seen, as this information can be updated by other users. Medical History Acute UTI Allergic reaction Anxiety and depression Atypical chest pain Back pain Back pain Chest pain Chest pain Chest pain at rest Closed fracture of right distal radius COPD (chronic obstructive pulmonary disease) Episodic migraine GERD (gastroesophageal reflux disease) Hernia Hyperlipidemia Indigestion MDD (major depressive disorder) Migraine headache Mood disorder On SSRI. Declined refrerral to coounselor or Behavioral Health. Seizure disorder History of seizure in 2015, unable to provide further information. Records from [facility] requested Sprain of right wrist Tremor History familial tremor. No significant improvement noticed with Topiramate, (relative contraindication the patient with history of anorexia nervosa documented on PMH) Type 2 diabetes mellitus Urinary incontinence, mixed Surgical History H/O hernia repair H/O neck surgery H/O: hysterectomy History of bladder surgery History of cholecystectomy Hx of appendectomy Family History Other Cancer Diabetes Social History Smoking Status: Never smoker alcohol intake: never substance use type: denies use current occupational status: retired Travel in the last 8 weeks: None household members: significant other housing: house marital status: PM Subjective & Objective Subjective Subjective:: Patient is a pleasant 69-year-old female who presents today for follow-up of her first diagnostic cervical facet/medial branch blocks bilaterally C4-C5 and C5-C6 on 02/27/2024. Today she rates her pain an 8 out of 10. She does state that she got up until Monday 80% relief and felt great. Patient states she was able to sleep and had no headaches whatsoever following this procedure. She states she was able to do more range of motion with her neck with overall decreased pain. Patient states it was amazing. She does state now she is back to her baseline and experiencing severe pain and denies any new injury or trauma. She states th e pain is all there at her neck and has trouble with twisting [id number] or looking up and down. She states she is back to having daily headaches. Patient states the pain is interfering with her ability perform activities of daily living such as cooking and cleaning. Patient states that this has been an ongoing issue for years and progressively worsening. 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 She states that she was also seeing Dr. Stephen here at [place] however stated that she ended up wanting to refer her to because there was not anything else she could do. Patient states that she does not care for [facility] and has not seen anyone since. Patient does state that she will occasionally have issues with her eyesight due to this. She is interested in any help we may be able to provide with her symptoms and does state that she wants to get scheduled for the repeat injection as soon as possible. Her Willie has been reviewed and is appropriate. Review of Systems: General: No recent weight changes, no fever, no sleep disturbances Respiratory: No cough, no shortness of air, no recurring pulmonary infections Cardiovascular/peripheral vascular: No chest pain, no palpitations, no edema, no shortness of breath Gastrointestinal: No new onset incontinence, normal bowel movements reported Genitourinary: No new onset incontinence Musculoskeletal: Neck pain, headaches Psychiatric: [Normal mood/affect] Neurological: [Denies weakness in extremities], [denies balance issues] Pain at rest (0-10 scale): 8 Objective Objective:: Physical Exam: General: Alert and oriented x3, no acute distress, pleasant and cooperative Lungs: Respirations even and unlabored, symmetrical chest expansion Eyes: PERRL Musculoskeletal: Flexion and extension of cervical [spine] somewhat guarded secondary to pain, [antalgic gait noted] positive Kemps test Neurological: Speech clear, no gross sensory deficit Has patient had previous pain injection?: Yes Percent improvement in pain since last injection: 80% Conservative treatment options previously tried: Home exercise plan Length of treatment: Longer than 12 weeks Meds Home Medications and Allergies Home Medications ?Medication ?Instructions ?Recorded ?Confirmed ?Type atorvastatin 80 mg tablet 80 mg PO DAILY #90 tabs 01/24/22 02/27/24 Rx albuterol sulfate 90 mcg/actuation 2 inh inhalation Q4-6H PRN 10/30/23 02/27/24 History aerosol inhaler Breathing Problems alcohol swabs (DropSafe Alcohol 1 pad topical DIRECTED 10/30/23 02/27/24 History Prep Pads) azelastine 137 mcg (0.1 %) nasal 2 spray intranasal ONCE 10/30/23 02/27/24 History spray blood sugar diagnostic (Accu-Chek #10 ea 10/30/23 02/27/24 History Guide test strips) blood-glucose meter (Accu-Chek #1 ea 10/30/23 02/27/24 History Guide Me Glucose Meter) eptinezumab-jjmr 100 mg/mL 100 mg IV [id number] 10/30/23 02/27/24 History intravenous solution (Vyepti) fluticasone fur. 200 mcg-umeclid 1 inh inhalation DAILY 10/30/23 02/27/24 History 62.5 mcg-vilant 25 mcg inhalat.powder (Trelegy Ellipta) ipratropium 0.5 mg-albuterol 3 mg 3 ml inhalation Q4-6H PRN 10/30/23 02/27/24 History (2.5 mg base)/3 mL nebulization Breathing Problems soln lancets (Accu-Chek Softclix #100 ea 10/30/23 02/27/24 History Lancets) sertraline 100 mg tablet 200 mg PO DAILY 10/30/23 02/27/24 History syringe with needle 3 mL 23 x 1 #1 ea 10/30/23 02/27/24 History (BD Luer-Konrad Syringe) cholecalciferol (vitamin D3) 50 50 mcg PO DAILY #90 caps 10/31/23 02/27/24 Rx mcg (2,000 unit) capsule coQ10 (ubiquinol) 100 mg capsule 100 mg PO BID #180 caps 10/31/23 02/27/24 Rx (Qunol Sharan CoQ10) famotidine 20 mg tablet 20 mg PO BID #180 tabs 11/16/23 02/27/24 Rx iron sucrose 200 mg iron/10 mL 200 mg (10 mL) IV WEEKLY 5 doses 12/14/23 02/27/24 Rx intravenous solution (Venofer) ropinirole 3 mg tablet 3 mg PO DAILY #90 tabs 12/14/23 02/27/24 Rx bupropion HCl 150 mg tablet,12 hr 150 mg PO BID #180 ea 01/29/24 02/27/24 Rx sustained-release (Wellbutrin SR) dulaglutide 1.5 mg/0.5 mL 1.5 mg (0.5 mL) SQ WEEKLY #2 mL 01/29/24 02/27/24 Rx subcutaneous pen injector (Trulicity) topiramate 100 mg tablet (Topamax) 100 mg PO BID #180 tabs 01/29/24 02/27/24 Rx clonazepam 1 mg tablet (Klonopin) 1 mg PO BID #10 tabs 01/31/24 02/27/24 Rx meclizine 25 mg tablet 25 mg PO BID PRN motion sickness 03/06/24 Rx #60 tabs promethazine 25 mg tablet 25 mg PO Q8HP PRN motion sickness 03/06/24 Rx #90 tabs New Prescriptions to Start Prescriptions: Allergies Allergy/AdvReac Type Severity Reaction Status Date / Time acetaminophen (From Lortab) Allergy Intermediate Verified 01/29/24 09:15 hydrocodone (From Lortab) Allergy Intermediate Verified 01/29/24 09:15 codeine AdvReac Severe Verified 01/29/24 09:15 hydromorphone (From Dilaudid) AdvReac Severe Verified 01/29/24 09:15 morphine AdvReac Severe Verified 01/29/24 09:15 oxycodone AdvReac Severe Verified 01/29/24 09:15 ondansetron (From Zofran) AdvReac Intermediate Verified 01/29/24 09:15 Assessment and Plan *Assessment and plan (1) Facet arthropathy, cervical: Status: Acute Category: Medical Code(s): M47.812 - Spondylosis without myelopathy or radiculopathy, cervical region (2) History of fusion of cervical spine: Status: Acute Category: Surgical Code(s): Z98.1 - Arthrodesis status Plan Patient had significant improvement with her first diagnostic cervical medial branch block with 80% relief lasting about a week and a half. Patient is now experiencing worsening pain in her neck with a positive Kemps test. Risk and benefits were discussed with the patient regarding repeat diagnostic cervical medial branch block. She does states she would like to proceed forward as soon as possible. She states this is the best she has ever been when that injection was working. I did also discuss at length with the patient if she continues to get significant relief with her second block that we will plan on proceeding forward with the cervical RFA at a later date. Patient agrees with this plan of care. I did discuss with the patient due to her significant history of aneurysm and vision changes with headache that I would like to make sure that she is set up with a neurologist. I will send a referral to [facility]. Patient agrees with this plan of care. Patient will be scheduled for her second diagnostic cervical facet/medial branch block bilaterally C4-C5 and C5-C6 under fluoroscopy. Patient has tried and failed conservative therapy including continued at home stretching exercise for longer than 12 weeks. Patient has been instructed to contact the clinic with any concerns before the next appointment. Dr. Sheehan has reviewed this note and agrees with this plan of care. This note was dictated using voice recognition software and make contain errors or omissions. All injections are used with Lidocaine, Bupivacaine and Depo Medrol. Occasionally urine drug screen is needed to verify patient's compliance with our office pain contract. This is ordered based off specific treatments related to chronic pain with the potential to abuse certain medications.
[2024-03-13 15:21] VITALS: BP 135/79; PULSE 100; RESP 16; O2SAT 96; BMI 26.7
== END 2024-03-13 23:59 | disposition home or self-care (01) ==
LOC: SC.PAIN 13:29
PROVIDERS: PCP Nurse Practitioner Family; Visit Provider Nurse Practitioner Family
DX: M47.812 Spondylosis without myelopathy or radiculopathy, cervical region (principal); Z98.1 Arthrodesis status; Z73.89 Other problems related to life management difficulty; Z79.899 Other long term (current) drug therapy
CPT/HCPCS: 99212; G0463

== ENCOUNTER 2024-03-20 08:57 | Outpatient (CLI) | payer MEDICARE, MEDICAID, SELFPAY ==
[2024-03-20 17:42] LABS: Coronavirus 19, PCR Not Detected (NotDetected); Human Rhinovirus Not Detected (NotDetected); Influenza A, PCR Not Detected (NotDetected); Influenza B, PCR Not Detected (NotDetected); Respiratory Syncytial Virus Not Detected (NotDetected)
== END 2024-03-20 23:59 | disposition home or self-care (01) ==
LOC: LAB.DROPOF 03-21 08:58
PROVIDERS: PCP Nurse Practitioner Family; Visit Provider Nurse Practitioner Family
DX: J32.9 Chronic sinusitis, unspecified (principal)
CPT/HCPCS: 87631

== ENCOUNTER 2024-04-16 10:44 | Day surgery (SDC) | payer MEDICARE, MEDICAID, SELFPAY ==
[2024-04-16 10:54] VITALS: BP 120/63; PULSE 109; RESP 16; TEMP 36.8; O2SAT 93; BMI 27.0
[2024-04-16] MEDS: IOPAMIDOL-200 (41%);10ML VIAL 10 ML IV (11:27)
[2024-04-16 11:30] VITALS: BP 133/86; PULSE 118; RESP 18; O2SAT 97
[2024-04-16 11:34] VITALS: BP 133/86; PULSE 118; RESP 18; O2SAT 97
[2024-04-16 11:41] VITALS: BP 111/63; PULSE 108; RESP 16; TEMP 36.8; O2SAT 95
--- NOTE | 2024-04-16 12:11 | P.PCN_ITS ---
Procedure Date: 04/16/24 Time: 11:40 Anesthesiologist:: Kunal Lorenzo CRNA Complications:: None Pre-procedure Diagnosis:: Degenerative disc cervical spine multilevels. Cervical radiculopathy. Cervical spondylosis. Multilevel cervical arthropathy. Post-procedure Diagnosis:: Same. Indications for Procedure:: Patient is a pleasant 69-year-old female comes our clinic today for round 1 bilateral cervical C5-6, C6-7 medial branch block/facet injections. Patient describes posterior cervical neck pain as constant, dull, aching. She has difficulty with cervical flexion, extension, left and right rotation. She rates her pain 8/10. Procedure Details:: Informed consent was obtained and the risk and benefits of the procedure was explained to the patient. Patient was taken to the procedure room where noninvasive monitors were placed, including noninvasive blood pressure cuff as well as pulse oximeter. The area over the posterior cervical spine was cleansed using chlorhexidine as a cleansing solution. I anesthetized the skin and subcut aneous tissues with 1% Lidocaine. I placed 25 -gauge spinal needles into the facet joint/ medial branches of C5-6, C6-7 bilaterally. Needle placement was confirmed with fluoroscopy. After confirmation of needle placement, each site was injected with 1 mL of 1% lidocaine and 0.25 % Marcaine and 10 mg of Depo- Medrol. A total of 20 mg of depo medrol was used for bilateral medial branch blocks of C5-6, C6-7 bilaterally. Patient tolerated the procedure without difficulty. There were no complications. Plan and Disposition:: Patient was discharged without incident.
[2024-04-16 16:52] LABS: Microscopic, Urine URINE MICROSCOPIC (MICROSCOPIC)
[2024-04-16 17:03] LABS: Bilirubin,Urine Negative (Negative); Blood, Urine TRACE-I (Negative); Color,Urine YELLOW (Yellow); Glucose,Urine (UA) Negative (Negative); Ketones,Urine Negative (Negative); Leukocyte Esterase,Urine 3+ (Negative); Nitrate,Urine POSITIVE (Negative); Protein,Urine 1+ (Negative); Urobilinogen,Urine 0.2 EU/dl (0.2)
[2024-04-16 17:06] LABS: Appearance,Urine Cloudy (Clear)
[2024-04-16 17:42] LABS: Bacteria,Urine 4+ /lpf; WBC,Urine TNTC #/hpf (0-3)
== END 2024-04-16 11:41 | disposition home or self-care (01) ==
LOC: SC.PAINP 10:45
PROVIDERS: PCP Nurse Practitioner Family; Visit Provider Nurse Anesthetist, Certified Registered
DX: M47.812 Spondylosis without myelopathy or radiculopathy, cervical region (principal); M50.30 Other cervical disc degeneration, unspecified cervical region; R82.90 Unspecified abnormal findings in urine
CPT/HCPCS: 64490; 64491; 81001; 87086; 87088; Q9966

== ENCOUNTER 2024-04-29 13:18 | Outpatient (CLI) | payer MEDICARE, MEDICAID, SELFPAY ==
[2024-04-29 12:46] LABS: Microscopic, Urine URINE MICROSCOPIC (MICROSCOPIC)
[2024-04-29 12:54] LABS: Basophils # 0.1 K/mm3 (0-0.2); Basophils % 0.5 % (0.1-2.0); Eosinophils # 0.1 K/mm3 (0.0-0.4); Eosinophils % 1.4 % (0.1-12.0); Hematocrit 40.8 % (37.0-47.0); Hemoglobin 13.1 g/dL (12.2-16.2); Lymphocytes # 2.2 K/mm3 (0.7-4.5); Lymphocytes % 23.4 % (10-50); Mean Corpuscular HGB Conc 32.1 g/dL (31.8-35.4); Mean Corpuscular Hemoglobin 25.7 pg (27.0-31.2); Mean Platelet Volume 9.5 fl (7.4-10.4); Monocytes # 0.5 K/mm3 (0.1-1.0); Monocytes % 5.3 % (1.7-9.3); Neutrophils # 6.6 K/mm3 (1.8-7.8); Neutrophils % 68.6 % (37.0-80.0); Platelet Count 262 K/mm3 (142-424); Red Cell Distribution Width 15.2 % (11.5-17.5); White Blood Count 9.6 K/mm3 (4.8-10.8)
[2024-04-29 13:12] LABS: Creatinine,Urine Random 60 mg/dL (Not Estab.)
[2024-04-29 13:18] LABS: Microalbumin < 6.000 mg/L (0-16.7)
[2024-04-29 13:25] LABS: Erythrocyte Sedimentation Rate 12 mm/hr (0-30)
[2024-04-29 13:32] LABS: Alanine Aminotransferase 31 U/L (12-78); Albumin/Globulin Ratio 1.4 (1.1-1.8); Alkaline Phosphatase 51 U/L (38-126); Aspartate Amino Transferase 26 U/L (14-36); Bilirubin,Total 0.2 mg/dl (0.2-1.3); Blood Urea Nitrogen 4 mg/dl (7-17); Calcium 9.3 mg/dl (8.4-10.2); Carbon Dioxide 29 mmol/L (22.0-30.0); Chloride 102 mmol/L (98-107); Chol/HDL Ratio 2.8 (1-3.5); Cholesterol 126 mg/dl (140-200); Estimated Glomerular Filt Rate 123 ml/min (>60); GFR (African American) 149 ML/MIN (>60); Globulin 2.8 g/dL (1.3-3.2); Glucose 124 mg/dl (74-100); HDL Cholesterol 45 mg/dl (40-60); Sodium 138 mmol/L (136-145); Total Protein,Serum 6.8 g/dl (6.3-8.2); Triglycerides 252 mg/dl (30-150); VLDL Cholesterol 50 mg/dL (0-40)
[2024-04-29 13:43] LABS: C-Reactive Protein 1.5 mg/L (0-4); Direct LDL Cholesterol 40.03 mg/dL (100-129)
[2024-04-29 13:46] LABS: 25-OH Vitamin D, Total 31.1 ng/mL (30-100)
[2024-04-29 14:12] LABS: Iron 79 ug/dL (37-170)
[2024-04-29 14:21] LABS: Total Iron Binding Capacity 337 ug/dL (265-497)
[2024-04-29 14:42] LABS: Appearance,Urine Cloudy (Clear); Color,Urine Yellow (Yellow)
[2024-04-29 14:43] LABS: Bacteria,Urine 3+ /lpf; Bilirubin,Urine Negative (Negative); Blood, Urine Negative (Negative); Glucose,Urine (UA) Negative (Negative); Ketones,Urine Negative (Negative); Leukocyte Esterase,Urine Trace (Negative); Nitrate,Urine POSITIVE (Negative); Protein,Urine Negative (Negative); Specific Gravity, Urine 1.015 (1.005-1.030); Urobilinogen,Urine 0.2 EU/dl (0.2)
[2024-04-29 14:48] LABS: Ferritin 127 ng/ml (11.1-264)
[2024-04-29 16:04] LABS: Hemoglobin A1C 8.3 % (4.0-6.0)
[2024-04-30 16:11] LABS: Deamidated Gliadin Abs, IgA 5 units (0-19); Deamidated Gliadin Abs, IgG 1 units (0-19); Tissue Transglutaminase IgA Ab 2 U/mL (0-3); Tissue Transglutaminase IgG Ab 3 U/mL (0-5)
[2024-05-01 06:10] LABS: Endomysial IgA Antibody Negative (Negative)
[2024-05-02 09:12] LABS: Reticulin IgA Antibody Negative titer (Neg:<1:2.5)
== END 2024-04-29 23:59 | disposition home or self-care (01) ==
LOC: LAB.DROPOF 13:18
PROVIDERS: PCP Nurse Practitioner Family; Visit Provider Nurse Practitioner Family
DX: K21.9 Gastro-esophageal reflux disease without esophagitis (principal); E61.1 Iron deficiency; E55.9 Vitamin D deficiency, unspecified; G25.81 Restless legs syndrome; F41.9 Anxiety disorder, unspecified; F32.A Depression, unspecified; E78.5 Hyperlipidemia, unspecified; E11.9 Type 2 diabetes mellitus without complications; I10 Essential (primary) hypertension; R41.3 Other amnesia; R53.83 Other fatigue; B96.20 Unspecified Escherichia coli [E. coli] as the cause of diseases classified elsewhere; Z79.85 Long-term (current) use of injectable non-insulin antidiabetic drugs
CPT/HCPCS: 80053; 80061; 81001; 82043; 82306; 82570; 82728; 83036; 83516; 83540; 83550; 85025; 85651; 86140; 86255; 86256; 87086; 87088; 87186

== ENCOUNTER 2024-05-01 14:14 | Outpatient (POV) | payer MEDICARE, MEDICAID, SELFPAY ==
--- NOTE | 2024-05-01 14:43 | A.OFFVIS_ITS ---
[facility] Disclaimer: The information contained in this section may have been updated after the patient was seen, as this information can be updated by other users. Medical History (Updated 05/01/24 @ 11:01 by Torie Duong APRN) Encounter for hepatitis C screening test for low risk patient Screening for HIV (human immunodeficiency virus) Encounter to establish care Allergic reaction to chemical substance Urticaria Right otitis media Viral respiratory illness Wheezing Migraine headache Closed fracture of right distal radius MDD (major depressive disorder) Mood disorder Sprain of right wrist Episodic migraine Acute UTI Back pain Allergic reaction Chest pain at rest Back pain Chest pain Chest pain Indigestion Atypical chest pain Seizure disorder Tremor Hernia Urinary incontinence, mixed GERD (gastroesophageal reflux disease) Anxiety and depression Type 2 diabetes mellitus COPD (chronic obstructive pulmonary disease) Hyperlipidemia Surgical History (Updated 05/01/24 @ 09:25 by Torie Duong APRN) History of bladder surgery H/O hernia repair H/O: hysterectomy History of cholecystectomy Hx of appendectomy H/O neck surgery Family History Other Cancer Diabetes Social History Smoking Status: Never smoker alcohol intake: never substance use type: denies use current occupational status: other Travel in the last 8 weeks: None household members: significant other housing: house marital status: PM Subjective & Objective Subjective Subjective:: Patient is a pleasant 69-year-old female who presents today for follow-up of her second diagnostic cervical medial branch block bilaterally C4-C5 and C5-C6 on 04/16/2024. Today she rates her pain a 8 out of 10. She denies any new trauma or injury. Patient states that she is having worsening pain in her neck with very limited range of motion that is made worse with twisting or bending up and down of her neck. Patient does state that immediately following this injection when she got up from the table she was 100% numb and that it felt wonderful however this 1 was very short left and she started to immediately notice a difference within about an hour where she was writing more of 40 to 50% continued relief. Patient does state that that did wear off and that she feels like she is back to her baseline where it is interfering with her ability perform activities of daily living such as cooking and cleaning. Patient does state that she does want to proceed forward with the ablation. Patient does state that she takes clonazepam on a daily basis and that she knows that she will need something to help with her anxiety for this procedure. Patient does state that she is set up for the neurologist appointment later this month. Her Willie has been reviewed and is appropriate. Review of Systems: General: No recent weight changes, no fever, no sleep disturbances Respiratory: No cough, no shortness of air, no recurring pulmonary infections Cardiovascular/peripheral vascular: No chest pain, no palpitations, no edema, no shortness of breath Gastrointestinal: No new onset incontinence, normal bowel movements reported Genitourinary: No new onset incontinence Musculoskeletal: Neck pain Psychiatric: [Normal mood/affect] Neurological: [Denies weakness in extremities], [denies balance issues] Pain at rest (0-10 scale): 8 Objective Objective:: Physical Exam: General: Alert and oriented x3, no acute distress, pleasant and cooperative Lungs: Respirations even and unlabored, symmetrical chest expansion Eyes: PERRL Musculoskeletal: Flexion and extension of cervical [spine] somewhat guarded secondary to pain, [antalgic gait noted] positive Kemps test Neurological: Speech clear, no gross sensory deficit Has patient had previous pain injection?: Yes Percent improvement in pain since last injection: 100% lasting 1 hour Conservative treatment options previously tried: Home exercise plan Length of treatment: Longer than 12 weeks Meds Home Medications and Allergies Home Medications ?Medication ?Instructions ?Recorded ?Confirmed ?Type atorvastatin 80 mg tablet 80 mg PO DAILY #90 tabs 01/24/22 04/29/24 Rx albuterol sulfate 90 mcg/actuation 2 inh inhalation Q4-6H PRN 10/30/23 04/29/24 History aerosol inhaler Breathing Problems alcohol swabs (DropSafe Alcohol 1 pad topical DIRECTED 10/30/23 04/29/24 History Prep Pads) azelastine 137 mcg (0.1 %) nasal 2 spray intranasal ONCE 10/30/23 04/29/24 History spray blood sugar diagnostic (Accu-Chek #10 ea 10/30/23 04/29/24 History Guide test strips) blood-glucose meter (Accu-Chek #1 ea 10/30/23 04/29/24 History Guide Me Glucose Meter) eptinezumab-jjmr 100 mg/mL 100 mg IV [id number] 10/30/23 04/29/24 History intravenous solution (Vyepti) fluticasone fur. 200 mcg-umeclid 1 inh inhalation DAILY 10/30/23 04/29/24 Histor y 62.5 mcg-vilant 25 mcg inhalat.powder (Trelegy Ellipta) ipratropium 0.5 mg-albuterol 3 mg 3 ml inhalation Q4-6H PRN 10/30/23 04/29/24 History (2.5 mg base)/3 mL nebulization Breathing Problems soln lancets (Accu-Chek Softclix #100 ea 10/30/23 04/29/24 History Lancets) syringe with needle 3 mL 23 x 1 #1 ea 10/30/23 04/29/24 History (BD Luer-Konrad Syringe) cholecalciferol (vitamin D3) 50 50 mcg PO DAILY #90 caps 10/31/23 04/29/24 Rx mcg (2,000 unit) capsule famotidine 20 mg tablet 20 mg PO BID #180 tabs 11/16/23 04/29/24 Rx iron sucrose 200 mg iron/10 mL 200 mg (10 mL) IV WEEKLY 5 doses 12/14/23 04/29/24 Rx intravenous solution (Venofer) ropinirole 3 mg tablet 3 mg PO DAILY #90 tabs 12/14/23 04/29/24 Rx meclizine 25 mg tablet 25 mg PO BID PRN motion sickness 03/06/24 04/29/24 Rx #60 tabs ubrogepant 100 mg tablet (Ubrelvy) 100 mg PO ONCE #30 tabs 04/05/24 04/29/24 Rx dulaglutide 1.5 mg/0.5 mL 1.5 mg SQ WEEKLY 04/29/24 04/29/24 History subcutaneous pen injector (Trulicity) clonazepam 1 mg tablet (Klonopin) 1 mg PO BID #60 tabs 04/30/24 Rx sertraline 100 mg tablet 200 mg (2 x 100 mg) PO DAILY #180 04/30/24 Rx tabs nitrofurantoin 100 mg PO Q12H 7 days #14 caps 05/01/24 Rx monohydrate/macrocrystals 100 mg capsule (Macrobid) New Prescriptions to Start Prescriptions: Allergies Allergy/AdvReac Type Severity Reaction Status Date / Time acetaminophen (From Lortab) Allergy Intermediate Verified 04/29/24 11:02 hydrocodone (From Lortab) Allergy Intermediate Verified 04/29/24 11:02 codeine AdvReac Severe Verified 04/29/24 11:02 hydromorphone (From Dilaudid) AdvReac Severe Verified 04/29/24 11:02 morphine AdvReac Severe Verified 04/29/24 11:02 oxycodone AdvReac Severe Verified 04/29/24 11:02 ondansetron (From Zofran) AdvReac Intermediate Verified 04/29/24 11:02 Assessment and Plan *Assessment and plan (1) History of fusion of cervical spine: Status: Acute Category: Surgical Code(s): Z98.1 - Arthrodesis status (2) Facet arthropathy, cervical: Status: Acute Category: Medical Code(s): M47.812 - Spondylosis without myelopathy or radiculopathy, cervical region (3) Lumbar spinal stenosis: Status: Acute Category: Medical Code(s): M48.061 - Spinal stenosis, lumbar region without neurogenic claudication (4) Migraine headache: Status: Acute Qualifiers: Migraine type: migraine (< 15 days per month) without aura Status migrainosus presence: without status migrainosus Intractability: intractable Qualified Code(s): G43.019 - Migraine without aura, intractable, without status migrainosus Category: Medical Code(s): G43.909 - Migraine, unspecified, not intractable, without status migrainosus Plan Patient has had 2 successful cervical medial branch blocks with her first 1 providing 80% relief and lasting a week and a half and her second 1 providing 100% relief however only lasting a very short period of time. I did discuss with the patient due to her continued limited range of motion and positive Kemps test that I do think she would benefit from a cervical RFA. Risk and benefits were discussed with patient and she would like to proceed forward with this plan of care. Patient has tried and failed conservative therapy including continued oral medication, heat and ice, topicals, at home stretching exercise for longer than 12 weeks between injections. Patient has also had previous neck surgery in the past. I did discuss with the patient that I will send in a one-time dose of diazepam 2 mg to be taken prior to this procedure. Patient was counseled due to this medication she will have to have a explosives truck driver and would be considered under the influence. Patient acknowledges understanding agrees with plan of care. I did also discuss with the patient that I will send in a 2-week dose of tizanidine 2 mg 3 times daily. Patient will be scheduled for the cervical radiofrequency ablation right-sided C4-C5 and C5-C6 under fluoroscopy. We will plan on submitting for the left side after she completes the right and this is due to the worsening pain with the ablation that we do 1 side at a time. Patient agrees with this. Patient has been instructed to contact the clinic with any concerns before the next appointment. Dr. Sheehan has reviewed this note and agrees with this plan of care. This note was dictated using voice recognition software and make contain errors or omissions. All injections are used with Lidocaine, Bupivacaine and Depo Medrol. Occasionally urine drug screen is needed to verify patient's compliance with our office pain contract. This is ordered based off specific treatments related to chronic pain with the potential to abuse certain medications.
[2024-05-01 14:49] VITALS: BP 132/67; PULSE 89; RESP 18; O2SAT 95; BMI 26.2
== END 2024-05-01 23:59 | disposition home or self-care (01) ==
PROVIDERS: PCP Nurse Practitioner Family; Visit Provider Nurse Practitioner Family
DX: M47.812 Spondylosis without myelopathy or radiculopathy, cervical region (principal); M48.061 Spinal stenosis, lumbar region without neurogenic claudication; G43.019 Migraine without aura, intractable, without status migrainosus; Z98.1 Arthrodesis status; Z73.89 Other problems related to life management difficulty; Z79.899 Other long term (current) drug therapy
CPT/HCPCS: 99212; G0463

== ENCOUNTER 2024-05-10 13:51 | Outpatient (CLI) | payer MEDICARE, MEDICAID, SELFPAY ==
--- NOTE | 2024-05-10 13:51 | MM_ITS ---
PROCEDURE INFORMATION: Exam: MG Bilateral Screening 3D Mammography Exam date and time: 05/10/2024 2:01 PM Age: 69 years old Clinical indication: Screening. A maternal cousin and paternal aunt had breast cancer. TECHNIQUE: Imaging protocol: Bilateral Screening tomosynthesis and 2D mammography including computer-aided detection (CAD) when performed. COMPARISON: No relevant prior studies available.If prior mammograms are provided, I am happy to add an addendum. FINDINGS: MAMMOGRAPHY: Breast composition: The breasts are heterogeneously dense, which may obscure small masses. Mass: None. Architectural distortion: None. Calcifications: No suspicious calcifications. Asymmetric density: None. Skin thickening: None. Axillary adenopathy: None. IMPRESSION: No mammographic evidence of malignancy. Annual screening is recommended unless otherwise clinically indicated. ASSESSMENT: BI-RADS Category 1: Negative.
== END 2024-05-10 23:59 | disposition home or self-care (01) ==
LOC: RAD 13:51
PROVIDERS: PCP Nurse Practitioner Family; Visit Provider Nurse Practitioner Family
DX: Z12.31 Encounter for screening mammogram for malignant neoplasm of breast (principal)
CPT/HCPCS: 77063; 77067

== ENCOUNTER 2024-05-28 08:52 | Day surgery (SDC) | payer MEDICARE, MEDICAID, SELFPAY ==
[2024-05-28 08:56] VITALS: BP 120/63; PULSE 80; RESP 18; TEMP 36.6; O2SAT 94; BMI 24.0
[2024-05-28 09:19] VITALS: BP 141/62; PULSE 94; RESP 18; O2SAT 93
[2024-05-28] MEDS: methylPREDNISolone ACETATE 80MG/ML VIAL 80 MG (09:19)
[2024-05-28] MEDS: LIDOCAINE 1% 5ML PF VIAL 5 ML (09:19)
[2024-05-28] MEDS: BUPIVACAINE 0.25% 10ML INJ 25 MG IJ (09:19)
[2024-05-28 09:25] VITALS: BP 129/75; PULSE 94; RESP 18; O2SAT 93
[2024-05-28 09:27] VITALS: BP 141/62; PULSE 94; RESP 18; O2SAT 93
--- NOTE | 2024-05-28 12:48 | P.PCN_ITS ---
Procedure Date: 05/28/24 Time: 09:00 Anesthesiologist:: Kunal Lorenzo CRNA Complications:: None Pre-procedure Diagnosis:: Degenerative disc disease cervical spine multilevels. Cervical radiculopathy. Cervical spondylosis. Multilevel cervical facet arthropathy. Cervical postlaminectomy syndrome. Post-procedure Diagnosis:: Same. Indications for Procedure:: Patient is a very pleasant 69-year-old female who comes our clinic today for a right radiofrequency ablation at the C4-5, C5-6 levels. Patient describes posterior cervical neck pain as constant, dull, aching. Right greater than left. She describes having difficulty with cervical flexion, extension, left and right rotation. She rates her pain 9/10. Procedure Details:: Informed consent was obtained and the risk and benefits of the procedure was explained to the patient. Patient was placed prone on the procedure table. The patient was prepped and draped in sterile fashion. C-arm fluoroscopy was used to view the lumbar spine. The skin and subcutaneous tissues were anesthetized using lidocaine. I placed 20-gauge RF needles into the facet joints of C4-5, C5-6 levels on the right side. We underwent sensory stimulation. There is good sensory stimulation at 0.8 V. We underwent motor stimulation. There is no motor stimulation at 2.5 V. We then anesthetized these levels with lidocaine and Depo- Medrol. I used a total of 40 mg Depo-Medrol for both levels. I then burned both levels of C4-5, C5-6 facet joint/medial branches on the right side for 4 minutes at 80 ?C. Patient tolerated the procedure well with no complication. Plan and Disposition:: Patient was discharged without incident.
== END 2024-05-28 09:25 | disposition home or self-care (01) ==
LOC: SC.PAINP 08:53
PROVIDERS: PCP Nurse Practitioner Family; Visit Provider Nurse Anesthetist, Certified Registered
DX: M47.812 Spondylosis without myelopathy or radiculopathy, cervical region (principal); M50.10 Cervical disc disorder with radiculopathy, unspecified cervical region; M96.1 Postlaminectomy syndrome, not elsewhere classified
CPT/HCPCS: 64633; 64634; J1010

== ENCOUNTER 2024-06-11 09:46 | Outpatient (POV) | payer MEDICARE, MEDICAID, SELFPAY ==
--- NOTE | 2024-06-11 10:18 | A.OFFVIS_ITS ---
[facility] Disclaimer: The information contained in this section may have been updated after the patient was seen, as this information can be updated by other users. Medical History Encounter for hepatitis C screening test for low risk patient Screening for HIV (human immunodeficiency virus) Encounter to establish care Allergic reaction to chemical substance Urticaria Right otitis media Viral respiratory illness Wheezing Migraine headache Closed fracture of right distal radius MDD (major depressive disorder) Mood disorder Sprain of right wrist Episodic migraine Acute UTI Back pain Allergic reaction Chest pain at rest Back pain Chest pain Chest pain Indigestion Atypical chest pain Seizure disorder Tremor Hernia Urinary incontinence, mixed GERD (gastroesophageal reflux disease) Anxiety and depression Type 2 diabetes mellitus COPD (chronic obstructive pulmonary disease) Hyperlipidemia Surgical History History of bladder surgery H/O hernia repair H/O: hysterectomy History of cholecystectomy Hx of appendectomy H/O neck surgery Family History Other Cancer Diabetes Social History Smoking Status: Never smoker alcohol intake: never substance use type: denies use current occupational status: other Travel in the last 8 weeks: None household members: significant other housing: house marital status: PM Subjective & Objective Subjective Subjective:: Patient is a pleasant 69-year-old female who presents today for follow-up of right radiofrequency ablation of her cervical spine C4-5, C5-C6 on 05/28/2024. Today she rates her pain a 7 out of 10. She states that she did have at least 50% improvement following this procedure and feels like it is still working. Patient does state that she is having pain along the left side after doing all weekend prepping for Monday and cooking a lot. Patient does state that pain is very aggravating and it does interfere with her ability to perform activities of daily living such as cooking and cleaning. Patient does state that she would like to proceed forward with the ablation on the left side now. Patient does state that the baclofen 5 mg that we did give her at her last visit actually seem to cause nightmares and so she discontinued this medication. Her Willie has been reviewed and is appropriate. Review of Systems: General: No recent weight changes, no fever, no sleep disturbances Respiratory: No cough, no shortness of air, no recurring pulmonary infections Cardiovascular/peripheral vascular: No chest pain, no palpitations, no edema, no shortness of breath Gastrointestinal: No new onset incontinence, normal bowel movements reported Genitourinary: No new onset incontinence Musculoskeletal: Left-sided neck pain Psychiatric: [Normal mood/affect] Neurological: [Denies weakness in extremities], [denies balance issues] Pain at rest (0-10 scale): 7 Objective Objective:: Physical Exam: General: Alert and oriented x3, no acute distress, pleasant and cooperative Lungs: Respirations even and unlabored, symmetrical chest expansion Eyes: PERRL Musculoskeletal: Flexion and extension of cervical [spine] somewhat guarded secondary to pain, [antalgic gait noted] positive Kemps Neurological: Speech clear, no gross sensory deficit Has patient had previous pain injection?: Yes Percent improvement in pain since last injection: 50% right sided Conservative treatment options previously tried: Home exercise plan Length of treatment: Longer than 12 weeks Meds Home Medications and Allergies Home Medications ?Medication ?Instructions ?Recorded ?Confirmed ?Type albuterol sulfate 90 mcg/actuation 2 inh inhalation Q4-6H PRN 10/30/23 05/28/24 History aerosol inhaler Breathing Problems alcohol swabs (DropSafe Alcohol 1 pad topical DIRECTED 10/30/23 05/28/24 History Prep Pads) azelastine 137 mcg (0.1 %) nasal 2 spray intranasal ONCE 10/30/23 05/28/24 History spray blood sugar diagnostic (Accu-Chek #10 ea 10/30/23 05/28/24 History Guide test strips) blood-glucose meter (Accu-Chek #1 ea 10/30/23 05/28/24 History Guide Me Glucose Meter) eptinezumab-jjmr 100 mg/mL 100 mg IV [id number] 10/30/23 05/28/24 History intravenous solution (Vyepti) fluticasone fur. 200 mcg-umeclid 1 inh inhalation DAILY 10/30/23 05/28/24 History 62.5 mcg-vilant 25 mcg inhalat.powder (Trelegy Ellipta) ipratropium 0.5 mg-albuterol 3 mg 3 ml inhalation Q4-6H PRN 10/30/23 05/28/24 History (2.5 mg base)/3 mL nebulization Breathing Problems soln lancets (Accu-Chek Softclix #100 ea 10/30/23 05/28/24 History Lancets) syringe with needle 3 mL 23 x 1 #1 ea 10/30/23 05/28/24 History (BD Luer-Konrad Syringe) cholecalciferol (vitamin D3) 50 50 mcg PO DAILY #90 caps 10/31/23 05/28/24 Rx mcg (2,000 unit) capsule famotidine 20 mg tablet 20 mg PO BID #180 tabs 11/16/23 05/28/24 Rx iron sucrose 200 mg iron/10 mL 200 mg (10 mL) IV WEEKLY 5 doses 12/14/2305/28 Rx intravenous solution (Venofer) ropinirole 3 mg tablet 3 mg PO DAILY #90 tabs 12/14/23 05/28/24 Rx meclizine 25 mg tablet 25 mg PO BID PRN motion sickness 03/06/24 05/28/24 Rx #60 tabs sertraline 100 mg tablet 200 mg (2 x 100 mg) PO DAILY #180 04/30/24 05/28/24 Rx tabs diazepam 2 mg tablet 2 mg PO ONCE anxiety #1 tab 05/02/24 05/28/24 Rx dulaglutide 3 mg/0.5 mL 3 mg (0.5 mL) SQ WEEKLY #2 mL 05/02/24 05/28/24 Rx subcutaneous pen injector (Trulicity) sumatriptan succinate 25 mg tablet See Rx Instructions PO .COMPLEX 05/06/24 05/28/24 Rx #30 tabs atorvastatin 80 mg tablet 80 mg PO DAILY #90 tabs 05/22/24 05/28/24 Rx clonazepam 1 mg tablet 1 mg PO BID #60 tabs 05/28/24 Rx New Prescriptions to Start Prescriptions: Allergies Allergy/AdvReac Type Severity Reaction Status Date / Time acetaminophen (From Lortab) Allergy Intermediate Verified 05/13/24 09:16 hydrocodone (From Lortab) Allergy Intermediate Verified 05/13/24 09:16 codeine AdvReac Severe Verified 05/13/24 09:16 hydromorphone (From Dilaudid) AdvReac Severe Verified 05/13/24 09:16 morphine AdvReac Severe Verified 05/13/24 09:16 oxycodone AdvReac Severe Verified 05/13/24 09:16 topiramate AdvReac Severe Hives Verified 05/13/24 09:18 ondansetron (From Zofran) AdvReac Intermediate Verified 05/13/24 09:16 Assessment and Plan *Assessment and plan (1) Facet arthropathy, cervical: Status: Acute Category: Medical Code(s): M47.812 - Spondylosis without myelopathy or radiculopathy, cervical region (2) History of fusion of cervical spine: Status: Chronic Category: Surgical Code(s): Z98.1 - Arthrodesis status Plan Patient has had significant relief following the ablation on the right side and is not having any complaints at that location. Patient does state that she feels much more worsening pain with limited range of motion now on the left side. Patient did have 2 successful cervical medial branch blocks with 80% with her first 1 and 100% with her second 1. Patient was reviewed over the risk and benefits of the left sided cervical ablation C4-C5 and C5-C6 and she would like to proceed forward with this plan of care. Patient is not on any blood thinners. Patient has already noticed a significant improvement with the right sided ablation. Patient has had longstanding neck pain for years that is progressively worsened. We will schedule her for her left radiofrequency ablation C4-C5 and C5-C6 under fluoroscopy. This will be a thermal long pulsed 80 ?C burn. I will also send in a 2-week dose of methocarbamol 500 mg twice daily. Patient has been instructed to contact the clinic with any concerns before the next appointment. Dr. Sheehan has reviewed this note and agrees with this plan of care. This note was dictated using voice recognition software and make contain errors or omissions. All injections are used with Lidocaine, Bupivacaine and Depo Medrol. Occasionally urine drug screen is needed to verify patient's compliance with our office pain contract. This is ordered based off specific treatments related to chronic pain with the potential to abuse certain medications.
[2024-06-11 10:31] VITALS: BP 104/52; PULSE 90; RESP 18; O2SAT 100; BMI 25.5
== END 2024-06-11 23:59 | disposition home or self-care (01) ==
PROVIDERS: PCP Nurse Practitioner Family; Visit Provider Nurse Practitioner Family
DX: M47.812 Spondylosis without myelopathy or radiculopathy, cervical region (principal); Z98.1 Arthrodesis status; Z73.89 Other problems related to life management difficulty; Z79.899 Other long term (current) drug therapy
CPT/HCPCS: 99212; G0463

== ENCOUNTER 2024-07-05 08:07 | Outpatient (CLI) | payer MEDICARE, MEDICAID, SELFPAY ==
[2024-07-05] MEDS: TC99M SULF.COLLOID;1 DOSE (UP TO 20 MCI) IV (09:36)
--- NOTE | 2024-07-05 10:00 | NM_ITS ---
FINAL REPORT TECHNIQUE: Sequential anterior images were obtained after the ingestion of whole eggs with white toast and butter and 6 oz of water radiolabeled with 6.57 mCi technetium 99M sulfur colloid. CLINICAL HISTORY: N/V/bloating/heartburn/uncontrolled diabetes 8:20 am 6.57 mci sulfur colloid injected into whole eggs and white toast with butter and 6 oz cup of water FINDINGS: GASTRIC EMPTYING SCAN Static images show normal emptying of the stomach into the small bowel. Based on the time activity curve, the estimated half-emptying time is 84 minutes. IMPRESSION: Normal gastric emptying study. Reviewed, Interpreted and Dictated by Emilee Pal MD Transcribed by Estrella Helms Authenticated and [facility]
== END 2024-07-05 23:59 | disposition home or self-care (01) ==
LOC: RAD 08:08
PROVIDERS: PCP Nurse Practitioner Family; Visit Provider Nurse Practitioner Family
DX: R11.2 Nausea with vomiting, unspecified (principal); R14.0 Abdominal distension (gaseous); R12 Heartburn; E11.65 Type 2 diabetes mellitus with hyperglycemia
CPT/HCPCS: 78264; A9541

== ENCOUNTER 2024-07-09 09:26 | Day surgery (SDC) | payer MEDICARE, MEDICAID, SELFPAY ==
[2024-07-09 09:34] VITALS: BP 103/52; PULSE 99; RESP 16; TEMP 36.6; O2SAT 94; BMI 25.7
[2024-07-09 09:44] LABS: POC Glucose,Bedside 148 (70-110)
[2024-07-09] MEDS: IOPAMIDOL-200 (41%);10ML VIAL 10 ML IV (09:46)
[2024-07-09] MEDS: BUPIVACAINE 0.25% 10ML INJ 25 MG IJ (09:46)
[2024-07-09] MEDS: DEXAMETHASONE 10MG/ML 1ML VIAL 10 MG (09:46)
[2024-07-09] MEDS: LIDOCAINE 1% 5ML PF VIAL 5 ML (09:46)
--- NOTE | 2024-07-09 09:49 | EXP.PAIN.PRO ---
Procedure Date: 07/09/24 Time: 09:30 Anesthesiologist:: Kunal Lorenzo CRNA Complications:: None Pre-procedure Diagnosis:: Degenerative disc cervical spine multilevels. Cervical radiculopathy. Cervical spondylosis. Multilevel cervical facet arthropathy. Post-procedure Diagnosis:: Same. Indications for Procedure:: Patient is a very pleasant 69-year-old female who comes our clinic today for a cervical radiofrequency ablation at the left C4-5, C5-6 level. Patient describes posterior cervical neck pain as constant, dull, aching. She reports some degree of radicular symptoms into the left shoulder. She rates her pain 6/10. Procedure Details:: Informed consent was obtained and the risk and benefits of the procedure was explained to the patient. Patient was placed prone on the procedure table. The patient was prepped and draped in sterile fashion. C-arm fluoroscopy was used to view the lumbar spine. The skin and subcutaneous tissues were anesthetized using lidocaine. I placed 20-gauge RF needles into the facet joints of C5- C6 and C6-C7 levels on the left side. We underwent sensory stimulation. There is good sensory stimulation at 0.8 V. We underwent motor stimulation. There is no motor stimulation at 2.5 V. We then anesthetized these levels with lidocaine and Depo-Medrol. I used a total of 40 mg Depo-Medrol for both levels. I then burned both levels of C5-C6 and C6-C7 facet joint/medial branches on the left side for 4 minutes at 80 ?C. Patient tolerated the procedure well with no complication. Plan and Disposition:: Patient was discharged without incident.
[2024-07-09 09:52] VITALS: BP 128/70; PULSE 97; RESP 16; O2SAT 93
[2024-07-09 09:53] VITALS: BP 119/69; PULSE 103; RESP 18; O2SAT 92
[2024-07-09 09:55] VITALS: BP 119/69; PULSE 103; RESP 18; O2SAT 92
== END 2024-07-09 09:52 | disposition home or self-care (01) ==
PROVIDERS: PCP Nurse Practitioner Family; Visit Provider Nurse Anesthetist, Certified Registered
DX: M47.812 Spondylosis without myelopathy or radiculopathy, cervical region (principal); M50.10 Cervical disc disorder with radiculopathy, unspecified cervical region
CPT/HCPCS: 64633; 64634; 82962; J1100; Q9966

== ENCOUNTER 2024-07-29 15:42 | Outpatient (CLI) | payer MEDICARE, MEDICAID, SELFPAY ==
[2024-07-29 14:16] LABS: Chloride 105 mmol/L (98-107); Potassium 4.8 mmoL/L (3.5-5.1); Sodium 139 mmol/L (136-145)
[2024-07-29 14:19] LABS: Anion Gap 8.8 mEq/L (5-15); Blood Urea Nitrogen 6 mg/dl (7-17); Carbon Dioxide 30 mmol/L (22.0-30.0); Cholesterol 154 mg/dl (140-200); Estimated Glomerular Filt Rate 100 ml/min (>60); GFR (African American) 121 ML/MIN (>60); Triglycerides 319 mg/dl (30-150); VLDL Cholesterol 64 mg/dL (0-40)
[2024-07-29 14:20] LABS: Calcium 9.4 mg/dl (8.4-10.2); Chol/HDL Ratio 4.4 (1-3.5); Glucose 155 mg/dl (74-100); HDL Cholesterol 35 mg/dl (40-60)
[2024-07-29 14:30] LABS: Direct LDL Cholesterol 55.59 mg/dL (100-129)
--- OUTSIDE RECORDS SUMMARY | 2024-07-29 15:57 | XMS_ITS | Encounter Summary ---
Author Organization [facility] [employer] Address [address] [place] [address] Care Team Providers Care Shop Coordinator Name Role Phone Jayden Rowan MD Primary Care Provider [phone] Encounter Details Date Type Department Care Team (Late st Contact Info) Description 10/02/2020 Transcribed Document [facility] Family [facility] [place] [address] ProviderJason MD [address] [place] [id number] Social History Tobacco Use Types Packs/Day Years Used Date Smoking Tobacco: Never Assessed Comments Unknown Sex and Gender Information Value Date Recorded Sex Assigned at Not on file Legal Sex Female 3:15 PM CDT Gender Identity Not on file Sexual Orientation Not on file documented as of this encounter Miscellaneous Notes * Cerner Conversion Note - Jason Zendejas MD - 10/02/2020 12:18 PM CDT ED Discharge Entered On: 10/02/2020 12:18 EDT Performed On: 10/02/2020 12:18 EDT by Tori Rolon tow feeder Process Patient Disposition : Discharge Personal Belongings With Patient : Yes Patient Education Completed : Yes Teaching Evaluation : Verbalizes understanding IV Discontinued : Not applicable Nursing Documentation Completed : Yes Tori Rolon RN - 10/02/2020 12:18 EDT ED Discharge Vital Signs Peripheral Pulse Rate : 86 bpm Respiratory Rate : 18 Breaths/Min Systolic Blood Pressure : 110 mmHg Diastolic Blood Pressure : 58 mmHg (LOW) Oxygen Saturation : 94 % Oxygen Therapy Mode : Room air Tori Rolon RN - 10/02/2020 12:18 EDT ED Discharge Discharge To : Home with ambulatory/outpatient follow-up Mode Of Departure : Ambulatory Accompanied By : Responsible adult Discharge Instructions Reviewed With, Opportunity For Questions Given : Patient Prescriptions Given to Patient : No Medications Given to Patient : Yes Number of Medications Given : 2 Tori Rolon RN - 10/02/2020 12:18 EDT Electronically signed by [facility] Conversion [employer] at 06/09/2022 3:29 PM CDT documented in this encounter Plan of Treatment Not on file documented as of this encounter Visit Diagnoses Not on filedocumented in this encounter Care Teams Shop Coordinator Relationship Specialty Start Date End Date Jayden Rowan MD [address] [place] [phone] PCP - General General Internal Medicine 07/05/22 documented as of this encounter
--- OUTSIDE RECORDS SUMMARY | 2024-07-29 15:57 | XMS_ITS | Encounter Summary ---
Author Organization [employer] Address [address] [place] [address] Care Team Providers Care Electrician Ship Name Role Phone Leanna Rivera MD Primary Care Provider [phone] Encounter Details Date Type Department Care Team (Late st Contact Info) Description 11/03/2020 Transcribed Document [facility] [place] [address] ProviderJason MD [address] [place] [id number] Social History Tobacco Use Types Packs/Day Years Used Date Smoking Tobacco: Never Assessed Comments Unknown Sex and Gender Information Value Date Recorded Sex Assigned at Not on file Legal Sex Female 3:15 PM CDT Gender Identity Not on file Sexual Orientation Not on file documented as of this encounter Miscellaneous Notes * Cerner Conversion Note - Jason Zendejas MD - 11/03/2020 12:03 PM CDT [facility] [address] [place] [address] CECILE RAMIREZ DARREN :1955 Visit Time:11/03/2020 Your Visit Summary Your Care Team Primary Provider: GABRIELA BOYCE Secondary Provider: Your Diagnosis Headache Migraine Medical Information You may obtain a copy of your Emergency Department visit from Medical Records by calling the hospital phone number listed above and asking to be directed to the Medical Records Department. If you had special tests, such as EKG???s or X-rays, the interpretation of your tests given to you by the Emergency Department Physician is a preliminary report. Some fractures and illnesses fail to show up on preliminary tests. These will be reviewed again and we will call you if there are any new suggestions. If your symptoms continue notify your physician. After you leave, you should follow the instructions provided. What to do next Follow-Up Appointments Follow Up with Follow up with primary care provider When Within 2 to 3 days Comments Arrange follow-up with your doctor as needed. Return if worse. Follow Up with LEANNA RIVERA When Within 2 to 3 days Where: [address] [address]- [facility] (1) Allergies HYDROmorphone Imitrex Maxalt Zofran acetaminophen-HYDROcodone codeine metFORMIN morphine Immunizations This Visit No Immunizations Found Medications What How Much When Instructions Next Dose amitriptyline (amitriptyline 25 mg oral tablet) Oral At Bedtime aspirin (aspirin 81 mg oral tablet) 1 Tablet(s) Oral Every Day atorvastatin (Lipitor) 80 Milligram(s) At Bedtime clonazePAM Oral Three Times A Day fluticasone/ umeclidinium/ vilanterol (Trelegy Ellipta 200 mcg-62.5 mcg-25 mcg/ inh inhalation powder) Inhalation Every Day promethazine (promethazine 25 mg oral tablet) Oral Every 6 Hours as needed for as needed for nausea/vomiting promethazine (promethazine 25 mg oral tablet) 1 Tablet(s) Oral Every 4 Hours as needed for as needed for nausea/vomiting Duration: 3 Day(s) promethazine (promethazine 25 mg oral tablet) 1 Tablet(s) Oral Two Times A Day rOPINIRole (rOPINIRole 1 mg oral tablet) 1 Tablet(s) Oral At Bedtime sertraline (Zoloft) 200 Milligram(s) Every Day topiramate (Topamax) Oral Two Times A Day The home medications listed are only as accurate as the information you provided. Please continue taking all of your medications prescribed by your Primary Care Provider unless specifically told to change or discontinue the medication. Please direct any questions regarding your home medications to your Primary Care Provider. Take your medications faithfully. Do NOT skip medication. Do NOT stop taking medications without the direction of a physician. Carry a list of your medications with you at all times, and take this medication list with you to your first follow up visit. Report any side effects. Avoid herbal remedies unless discussed with your physician. As part of your treatment plan, your physician may have prescribed a limited course of a controlled substance. This medication may be given to help people with moderate or severe pain or for other medical conditions, but there are risks involved with treatment. Common side effects may include nausea, constipation, drowsiness, sweating, itching, dry mouth, and rash. More serious side effects may include cognitive and motor impairment, like problems with thinking, concentrating, alertness, and movement (e.g. slowed reflexes), and driving and operating heavy machinery can be dangerous. It is important for you to talk to your physician if you have these side effects or questions. These controlled substances can produce physical dependence and be habit-forming if taken for an extended period of time, which means that the body has gotten used to them and may experience withdrawal symptoms if they are abruptly stopped. Withdrawal symptoms can include runny nose, sweating, goose bumps, diarrhea, abdominal cramping, rapid heartbeat, difficulty sleeping, and nervousness. Please dispose of unused and medications per pharmacy guidance. Test Results Laboratory or Other Results This Visit (last charted value for your 11/03/2020 visit) No Laboratory or Other Results This Visit Education Materials Migraine Headache A migraine headache is an intense, throbbing pain on one side or both sides of the head. Migraine headaches may also cause other symptoms, such as nausea, vomiting, and sensitivity to light and noise. A migraine headache can last from 4 hours to 3 days. Talk with your doctor about what things may bring on (trigger) your migraine headaches. What are the causes? The exact cause of this condition is not known. However, a migraine may be caused when nerves in the brain become irritated and release chemicals that cause inflammation of blood vessels. This inflammation causes pain. This condition may be triggered or caused by: ??? Drinking alcohol. ??? Smoking. ??? Taking medicines, such as: ? Medicine used to treat chest pain (nitroglycerin). ? control pills. ? Estrogen. ? Certain blood pressure medicines. ??? Eating or drinking products that contain nitrates, glutamate, aspartame, or tyramine. Aged cheeses, chocolate, or caffeine may also be triggers. ??? Doing physical activity. Other things that may trigger a migraine headache include: ??? Menstruation. ??? . ??? Hunger. ??? Stress. ??? Lack of sleep or too much sleep. ??? Weather changes. ??? Fatigue. What increases the risk? The following factors may make you more likely to experience migraine headaches: ??? Being a certain age. This condition is more common in people who are 25???55 years old. ??? Being female. ??? Having a family history of migraine headaches. ??? Being . ??? Having a mental health condition, such as depression or anxiety. ??? Being obese. What are the signs or symptoms? The main symptom of this condition is pulsating or throbbing pain. This pain may: ??? Happen in any area of the head, such as on one side or both sides. ??? Interfere with daily activities. ??? Get worse with physical activity. ??? Get worse with exposure to bright lights or loud noises. Other symptoms may include: ??? Nausea. ??? Vomiting. ??? Dizziness. ??? General sensitivity to bright lights, loud noises, or smells. Before you get a migraine headache, you may get warning signs (an aura). An aura may include: ??? Seeing flashing lights or having blind spots. ??? Seeing bright spots, halos, or zigzag lines. ??? Having tunnel vision or blurred vision. ??? Having numbness or a tingling feeling. ??? Having trouble talking. ??? Having muscle weakness. Some people have symptoms after a migraine headache (postdromal phase), such as: ??? Feeling tired. ??? Difficulty concentrating. How is this diagnosed? A migraine headache can be diagnosed based on: ??? Your symptoms. ??? A physical exam. ??? Tests, such as: ? CT scan or an MRI of the head. These imaging tests can help rule out other causes of headaches. ? Taking fluid from the spine (lumbar puncture) and analyzing it (cerebrospinal fluid analysis, or CSF analysis). How is this treated? This condition may be treated with medicines that: ??? Relieve pain. ??? Relieve nausea. ??? Prevent migraine headaches. Treatment for this condition may also include: ??? Acupuncture. ??? Lifestyle changes like avoiding foods that trigger migraine headaches. ??? Biofeedback. ??? Cognitive behavioral therapy. Follow these instructions at home: Medicines ??? Take srtn-had-ffovchq and prescription medicines only as told by your health care provider. ??? Ask your health care provider if the medicine prescribed to you: ? Requires you to avoid driving or using heavy machinery. ? Can cause constipation. You may need to take these actions to prevent or treat constipation: ? Drink enough fluid to keep your urine pale yellow. ? Take npyz-eli-vhhnsfq or prescription medicines. ? Eat foods that are high in fiber, such as beans, whole grains, and fresh fruits and vegetables. ? Limit foods that are high in fat and processed sugars, such as fried or sweet foods. Lifestyle ??? Do not drink alcohol. ??? Do not use any products that contain nicotine or tobacco, such as cigarettes, e-cigarettes, and chewing tobacco. If you need help quitting, ask your health care provider. ??? Get at least 8 hours of sleep every night. ??? Find ways to manage stress, such as meditation, deep breathing, or yoga. General instructions ??? Keep a journal to find out what may trigger your migraine headaches. For example, write down: ? What you eat and drink. ? How much sleep you get. ? Any change to your diet or medicines. ??? If you have a migraine headache: ? Avoid things that make your symptoms worse, such as bright lights. ? It may help to lie down in a dark, quiet room. ? Do not drive or use heavy machinery. ? Ask your health care provider what activities are safe for you while you are experiencing symptoms. ??? Keep all follow-up visits as told by your health care provider. This is important. Contact a health care provider if: ??? You develop symptoms that are different or more severe than your usual migraine headache symptoms. ??? You have more than 15 headache days in one month. Get help right away if: ??? Your migraine headache becomes severe. ??? Your migraine headache lasts longer than 72 hours. ??? You have a fever. ??? You have a stiff neck. ??? You have vision loss. ??? Your muscles feel weak or like you cannot control them. ??? You start to lose your balance often. ??? You have trouble walking. ??? You faint. ??? You have a seizure. Summary ??? A migraine headache is an intense, throbbing pain on one side or both sides of the head. Migraines may also cause other symptoms, such as nausea, vomiting, and sensitivity to light and noise. ??? This condition may be treated with medicines and lifestyle changes. You may also need to avoid certain things that trigger a migraine headache. ??? Keep a journal to find out what may trigger your migraine headaches. ??? Contact your health care provider if you have more than 15 headache days in a month or you develop symptoms that are different or more severe than your usual migraine headache symptoms. This information is not intended to replace advice given to you by your health care provider. Make sure you discuss any questions you have with your health care provider. Document Revised: 05/31/2019 Document Reviewed: 03/21/2019 [employer] Patient Education ?? 2020 [employer]. Emergency Awareness and Preventative Care STROKE is an EMERGENCY Every Minute Counts Act FAST and Check for these signs: FACE Does the face look uneven? ARM Does one arm drift down? SPEECH Does their speech sound strange? TIME Call at any sign of stroke Stroke Risk Factors Atrial Fibrillation (irregular heartbeat) Diabetes Family history of stroke Heart Disease Heavy alcohol use High Blood Pressure High Cholesterol Physical inactivity and obesity Smoking Cigarette Smoking The facts are clear, cigarette smoking will shorten your life. Smoking can cause many illnesses along the way. As a healthcare provider, we recommend that you stop smoking. Assistance with quitting is available by contacting 4-268-OCJZ-NOW. This is a free resource providing counseling, support, and referral. Or you may contact your personal physician. National Suicide Prevention Lifeline: The National Suicide Prevention Lifeline is a national network of local crisis centers that provides free and confidential emotional support to people in suicidal crisis or emotional distress 24 hours a day, 7 days a week. Don't Wait! Stop a Heart Attack Before it Starts What is a heart attack? A heart attack is damage or to a part of the heart from severely decreased or lack of blood flow to the heart. Over time, arteries can become narrow from the buildup of fat and cholesterol, which is called plaque. The plaque can rupture causing a blood clot to form. When the blood clot forms, the artery can become severely narrowed or completely blocked, causing a heart attack. Heart attack is the leading cause of in the [place]. 85% of muscle damage occurs within the first 2 hours. Delay in the recognition of heart attack symptoms increases the chances of . Know the early symptoms of a heart attack: Nausea Feeling of fullness in chest Jaw Pain Pain that travels down one or both arms Fatigue/being tired Anxiety Back Pain Chest pressure, squeezing, or discomfort Shortness of breath Sweating, or a cold sweat Feeling of impending doom There are unusual signs of a heart attack, too! Women, the elderly, and diabetics may present with atypical symptoms: Fainting/dizziness Weakness Confusion Risk Factors for a Heart Attack Some heart disease risk factors, such as age and family history, cannot be changed. Others, like smoking and lack of exercise, can be changed. Smoking High Cholesterol High Blood Pressure Family History Obesity Age Gender (Males are at higher risk) Lack of Exercise Diabetes Diet Stress Excessive Alcohol Intake If you or someone you know is experiencing the signs and symptoms of a heart attack, DON???T DELAY. Call immediately and seek help. If someone collapses, perform CPR! Do not attempt to drive if you are having symptoms of heart attack. Hands-Only CPR Why Hands-Only CPR? Hands-Only CPR has been shown to be as effective as conventional CPR for cardiac arrests that occur outside of a hospital. Survival depends on immediately receiving CPR from someone nearby. How do you perform Hands-Only CPR? There are two easy steps: Call if you see a teen or adult collapse Push hard and fast in the center of the chest at a beat of 100 beats per minute. Save a life! 4 WAYS TO GET AHEAD OF SEPSIS SEPSIS is a MEDICAL EMERGENCY. Time matters! Infections put you and your family at risk for a life-threatening condition called sepsis. Sepsis is the body's extreme response to an infection. It is life-threatening, and without timely treatment, sepsis can rapidly lead to tissue damage, organ failure, and . Sepsis happens when an infection you already have-in your skin, lungs, urinary tract or somewhere else-triggers a chain reaction throughout your body. 1 PREVENT INFECTIONS Take good care of chronic conditions. Talk to your doctor about getting the recommended vaccines. 2 PRACTICE GOOD HYGIENE Wash your hands frequently. Keep cuts or open sores clean and covered until they are healed. 3 KNOW THE SYMPTOMS Confusion or disorientation Shortness of breath High heart rate Fever, shivering, or feeling very cold Extreme pain or discomfort Clammy or sweaty skin 4 ACT FAST Get medical care IMMEDIATELY if you suspect sepsis or if you have an infection that is not getting better or is getting worse. To learn more about sepsis and how to prevent infections, visit www.cdc.gov/sepsis. The examination and treatment you have received in the Emergency Department has been done to provide an appropriate evaluation and stabilizing treatment on an emergency basis only. Given the limited resources, it is not meant to be a substitute for complete medical care. The follow-up doctor you named will receive a copy of your records and all test reports. IT IS IMPORTANT THAT YOU SCHEDULE A FOLLOW-UP APPOINTMENT AND ARE RE-EVALUATED. You should report any new complaints, symptoms, or remaining problems at that time. IT IS IMPOSSIBLE FOR THE EMERGENCY DEPARTMENT TO RECOGNIZE AND TREAT ALL ELEMENTS OF INJURY OR ILLNESS IN A SINGLE VISIT. If you have been referred to a specialist physician, it means that we believe you may have a condition that requires the expertise of a specialist. These physicians work in partnership with the hospital and have agreed to see referred patients in their office for further evaluation. KEEP IN MIND THAT THE SPECIALIST HAS HIS/HER OWN OFFICE POLICIES WHICH MAY REQUIRE PROPER INSURANCE OR PAYMENT UP FRONT BEFORE THE SPECIALIST WILL SEE YOU. It is your responsibility to call the specialist physician to make an appointment. We do not have the ability to refer patients to specialists/physicians that work with specific insurance companies. Please be advised that all financial charges or billing practices are determined by that practice, not the hospital. If your insurance company requires that you see a specialist from their approved list, it is your responsibility to contact your insurance company to make those arrangements. It is also your responsibility to follow any other requirements of your insurance company necessary to obtain coverage for claims submitted. We will bill your insurance; however, you are responsible today for any co-pay amounts. You will receive a separate bill for any services you may have received including: emergency, radiology, or pathology physicians. Patient Name:CECILE RAMIREZ I have received this information and was given the opportunity to ask questions. Patient/Regulatory Analyst Name: Patient/Regulatory Analyst Signature: Relationship to Patient: Clinician/Hospital Regulatory Analyst Signature: Please Provide a Telephone Number Where You Can Be Reached: Is it Permissible To Leave a Message? Date: Electronically signed by [facility] Conversion Data Analytics Specialist Cerner at 06/09/2022 3:31 PM CDT documented in this encounter Plan of Treatment Not on file documented as of this encounter Visit Diagnoses Not on filedocumented in this encounter Care Teams Electrician Ship Relationship Specialty Start Date End Date Leanna Rivera MD [address] [place] [address] [place] [id number] PCP - General General Internal Medicine 07/05/22 documented as of this encounter
--- OUTSIDE RECORDS SUMMARY | 2024-07-29 15:57 | XMS_ITS | Encounter Summary ---
Author Organization [employer] Address [address] [place] [address] Care Team Providers Care Cma Or Lpn Name Role Phone Jayden Rowan MD Primary Care Provider [phone] Encounter Details Date Type Department Care Team (Late st Contact Info) Description 08/24/2021 Transcribed Document [facility] [place] [facility] [place] [address] ProviderJason MD [address] [place] [address] Social History Tobacco Use Types Packs/Day Years Used Date Smoking Tobacco: Never Assessed Comments Unknown Sex and Gender Information Value Date Recorded Sex Assigned at Not on file Legal Sex Female 3:15 PM CDT Gender Identity Not on file Sexual Orientation Not on file documented as of this encounter Miscellaneous Notes * Cerner Conversion Note - Jason Zendejas MD - 08/24/2021 9:39 PM CDT ED Discharge Vital Signs Entered On: 08/24/2021 21:39 EDT Performed On: 08/24/2021 21:39 EDT by Ewa Villagran RN ED Discharge Vital Signs Peripheral Pulse Rate : 64 bpm Respiratory Rate : 18 Breaths/Min Oxygen Saturation : 99 % Oxygen Therapy Mode : Room air Ewa Villagran RN - 08/24/2021 21:39 EDT documented in this encounter Plan of Treatment Not on file documented as of this encounter Visit Diagnoses Not on filedocumented in this encounter Care Teams Cma Or Lpn Relationship Specialty Start Date End Date Jayden Rowan MD [address] [place] [id number] PCP - General General Internal Medicine 07/05/22 documented as of this encounter
--- OUTSIDE RECORDS SUMMARY | 2024-07-29 15:57 | XMS_ITS | Encounter Summary ---
Author Organization [employer] Address [address] [place] [address] Care Team Providers Care Automotive Project Engineer Name Role Phone Leanna Rivera MD Primary Care Provider [phone] Encounter Details Date Type Department Care Team (Late st Contact Info) Description 05/10/2021 Transcribed Document [facility] Radiology [address] [place] [address] Lisa Rivera MD [facility] Dept [place] [address] Social History Tobacco Use Types Packs/Day Years Used Date Smoking Tobacco: Never Assessed Comments Unknown Sex and Gender Information Value Date Recorded Sex Assigned at Not on file Legal Sex Female 3:15 PM CDT Gender Identity Not on file Sexual Orientation Not on file documented as of this encounter Miscellaneous Notes * Cerner Conversion Note - Lisa Rivera MD - 05/10/2021 1:11 PM EDT Patient: CECILE RAMIREZ Age: 66 years Sex: Female : 1955 Associated Diagnoses: Headache, unspecified; Nausea in adult Author: LISA RIVERA MD-EMR Basic Information Time seen: Date & time 05/10/2021 11:12:00. History source: Patient. Additional information: Chief Complaint from Nursing Triage Note : Chief Complaint 05/10/2021 10:42 EDT Chief Complaint states that she has had a migraine for couple of days. Waiting to get into pain clinic . History of Present Illness The patient presents with headache. The onset was 2 days ago and gradual. The course/duration of symptoms is worsening. Location: occipital bilaterally. Radiating pain: radiates to frontal head bilaterally. The degree at present is 10 /10. The exacerbating factor is light. The relieving factor is light avoidance. Associated symptoms: nausea and vomiting. Current symptoms feel similar to prior headaches. Pt states she has seen a neurologist and tried everything you can imagine to get the headaches to stop, but she keeps getting them despite using Botox injections and nerve blocks. Pt is considering establishing care with ship painter helper but has not yet done so.. Review of Systems Constitutional symptoms: Negative except as documented in HPI. Skin symptoms: Negative except as documented in HPI. Eye symptoms: Negative except as documented in HPI. Gastrointestinal symptoms: Nausea, vomiting. Musculoskeletal symptoms: Negative except as documented in HPI. Neurologic symptoms: Negative except as documented in HPI. Health Status Allergies: Allergic Reactions (Selected) Severity Not Documented Acetaminophen-HYDROcodone- No reactions were documented. Codeine- No reactions were documented. HYDROmorphone- No reactions were documented. Imitrex- No reactions were documented. Maxalt- No reactions were documented. MetFORMIN- No reactions were documented. Morphine- No reactions were documented. Zofran- No reactions were documented.. Medications: (Selected) Prescriptions Prescribed aspirin 81 mg oral tablet: 1 Tab, Oral, Daily, 100 Tab, 0 Refill(s) promethazine 25 mg oral tablet: 1 Tab, Oral, BID, 12 Tab, 0 Refill(s) Documented Medications Documented Lipitor: 80 mg, At Bedtime, 0 Refill(s) Topamax: Oral, BID, 0 Refill(s) Trelegy Ellipta 200 mcg-62.5 mcg-25 mcg/inh inhalation powder: Puff, Inhalation, Daily, 0 Refill(s) Zoloft: 200 mg, Daily, 0 Refill(s) amitriptyline 25 mg oral tablet: Tab, Oral, At Bedtime, 0 Refill(s) clonazePAM: Oral, TID, 0 Refill(s) rOPINIRole 1 mg oral tablet: 1 Tab, Oral, At Bedtime, 0 Refill(s). Past Medical/ Family/ Social History Medical history Reviewed as documented in chart. Neurological: headache. Pt reports multiple medication allergies and intolerances.. Pt reports chronic anisocoria. Takes aspirin 81 mg PO daily but no other anticoagulants.. Surgical history: bladder sling. hysterectomy. neck disc sx. appendectomy. hernia repair x2. gallbladder sx., Reviewed as documented in chart. Social history: Social & Psychosocial Habits Alcohol 05/11/2013 Alcohol Use in Last Twelve Months No 10/24/2015 Alcohol Use History, Social Habits No 07/09/2017 Alcohol Use History, Social Habits No 09/05/2018 Alcohol Use in Last Twelve Months No Employment/School 05/05/2017 Status: Retired Home/Environment 05/05/2017 Lives with: Alone Living situation: Home/Independent Smoker in household: Yes Nutrition/Health 05/05/2017 Type of diet: Regular Substance Abuse 05/11/2013 Recreational Drug Use Last 12 Months No 07/09/2017 Recreational Drug Use History No Recreational Drug Use Last 12 Months No 09/05/2018 Recreational Drug Use Last 12 Months No Tobacco 05/11/2013 Smoking Status Current every day smoker Packs/Tins Daily 1 08/30/2015 Smoking Status Current every day smoker Smoking Frequency Within Last 30 Days Five or more cigarettes p Tobacco Use Within Last Twelve Months Cigarettes Packs/Tins Daily 0.5 Second Hand Smoke Exposure Yes 10/24/2015 Smoking Status Current every day smoker Tobacco Use Within Last Twelve Months Cigarettes Packs/Tins Daily 1 07/09/2017 Smoking Status Heavy tobacco smoker Smoking Frequency Within Last 30 Days Five or more cigarettes p Packs/Tins Daily 1.5 , Reviewed as documented in chart. Problem list: Active Problems (11) Anxiety Appendectomy Bladder Cholecystectomy COPD (chronic obstructive pulmonary disease) Depression Diabetes mellitus GERD (gastroesophageal reflux disease) High cholesterol Hysterectomy Migraine . Physical Examination Vital Signs Vital Signs/Vital Measures 05/10/2021 10:42 EDT Systolic Blood Pressure 121 mmHg Diastolic Blood Pressure 66 mmHg Temperature Source Oral Temperature Mode Fahrenheit Temperature, Fahrenheit 97.5 Deg F Clinical Temperature, C 36.4 Deg C Peripheral Pulse Rate 86 bpm Respiratory Rate 18 Breaths/Min Oxygen Saturation 98 % Oxygen Therapy Mode Room air . Measurements 05/10/2021 10:42 EDT Height Source Stated Height Entry Format [place] Height/Length, LATVIAN (ft) 5 ft Height/Length LATVIAN 3 Inch CLINICALHEIGHT 160.02 cm [place] Body Weight 52.02 kg Weight Source, ED Standing scale Weight Entry Format [place] Weight [place] lb 140 lb CLINICALWEIGHT 63.64 kg Body Surface Area (BSA) 1.66 m2 Body Mass Index 24.9 kg/m2 HI . Oxygen Saturation 05/10/2021 10:42 EDT Oxygen Saturation 98 % . General: Alert, appears anxious and uncomfortable. Skin: Warm, dry. Head: Normocephalic, atraumatic. Neck: Supple, no meningismus. Eye: Extraocular movements are intact, pupils are reactive bilaterally, but left pupils is approximately 5 mm and right pupil is approximately 4 mm, both are round., no nystagmus, Sclera: not icteric. Respiratory: Respirations: Regular, Retractions: None. Gastrointestinal: Soft, Nontender, Non distended. Musculoskeletal: No deformity, no deformity. Neurological: Normal speech, no dysarthria. Motor 5/5 power x 4 extremities, symmetric. Sensation grossly intact to light touch. Normal gait. No ataxia.. Medical Decision Making Differential Diagnosis: Migraine, tension headache, anxiety, depression. Documents reviewed: Emergency department records, prior records, 04/08/[address] head showing no acute intracranial process.. Orders Include Previous Orders (Selected) Inpatient Orders Ordered Discharge: ED Fall Risk Documented: Completed [place] Violence Assessment: ED Adult Fall Risk Assessment: ED Adult Triage: ED C-SSRS: ED Clinical Reconciliation: ED honing machine operator: fentaNYL: 100 mcg, IntraMuscular, 1-Time promethazine: 25 mg, IntraMuscular, 1-Time . Notes: No indication for repeat emergent neuroimaging at this time.. Impression and Plan Diagnosis Headache, unspecified - Discharge, Emergency medicine, Medical Nausea in adult - Discharge, Emergency medicine, Medical Plan Condition: Stable. Disposition: Discharged Admit/Transfer/Discharge: Discharge (Order): Start: 05/10/2021 12:12 EDT, Discharge to: Home. Patient was given the following educational materials: General Headache Without Cause. Follow up with: LEANNA RIVERA Within 2 to 4 days; Follow up with primary care provider Within 2 to 4 days; Follow up with specialist Within 2 to 4 days outcomes specialist; JOSHUA MCNEAL Within 2 to 4 days One option for ship painter helper. Counseled: Patient, Regarding treatment plan. documented in this encounter Plan of Treatment Not on file documented as of this encounter Visit Diagnoses Not on filedocumented in this encounter Care Teams Automotive Project Engineer Relationship Specialty Start Date End Date Leanna Rivera MD [address] [place] [phone] PCP - General General Internal Medicine 07/05/22 documented as of this encounter
--- OUTSIDE RECORDS SUMMARY | 2024-07-29 15:57 | XMS_ITS | Encounter Summary ---
Author Organization [employer] Address [address] [place] [address] Care Team Providers Care Manager Forensic Name Role Phone Jayden Rowan MD Primary Care Provider [phone] Encounter Details Date Type Department Care Team (Late st Contact Info) Description 11/03/2020 Transcribed Document [facility] Family Medicine [facility] [place] [address] ProviderJason MD [address] [place] [address] Social History Tobacco Use Types Packs/Day Years Used Date Smoking Tobacco: Never Assessed Comments Unknown Sex and Gender Information Value Date Recorded Sex Assigned at Not on file Legal Sex Female 3:15 PM CDT Gender Identity Not on file Sexual Orientation Not on file documented as of this encounter Miscellaneous Notes * Cerner Conversion Note - Jason Zendejas MD - 11/03/2020 10:54 AM CDT [place] Suicide Severity Rating Scale (C-SSRS) Entered On: 11/03/2020 11:16 EDT Performed On: 11/03/2020 11:14 EDT by BORIS METZ RN [place] Suicide Severity Rating Scale (C-SSRS) CSSRS Past Month Wish to be : No CSSRS Past Month Suicidal Thoughts : No CSSRS Lifetime Suicide Behavior : No Suicide Severity Rating Score : 0 Suicide Severity Rating : No Additional Care Required at this time BORIS METZ RN - 11/03/2020 11:14 EDT Electronically signed by Jolie Piedra Conversion Traffic Incident Management Manager Cerner at 06/09/2022 3:28 PM CDT documented in this encounter Plan of Treatment Not on file documented as of this encounter Visit Diagnoses Not on filedocumented in this encounter Care Teams Manager Forensic Relationship Specialty Start Date End Date Jayden Rowan MD [address] [place] [phone] PCP - General General Internal Medicine 07/05/22 documented as of this encounter
--- OUTSIDE RECORDS SUMMARY | 2024-07-29 15:58 | XMS_ITS | Encounter Summary ---
Author Organization [employer] Address [address] [place] [address] Care Team Providers Care Pugger Helper Name Role Phone Jayden Rowan MD Primary Care Provider [phone] Encounter Details Date Type Department Care Team (Late st Contact Info) Description 02/06/2020 Transcribed Document [facility] Family Medicine [facility] [place] [address] ProviderJason MD [address] [place] [id number] Social History Tobacco Use Types Packs/Day Years Used Date Smoking Tobacco: Never Assessed Comments Unknown Sex and Gender Information Value Date Recorded Sex Assigned at Not on file Legal Sex Female 3:15 PM CDT Gender Identity Not on file Sexual Orientation Not on file documented as of this encounter Miscellaneous Notes * Cerner Conversion Note - Jason Zendejas MD - 02/06/2020 1:15 PM HIGH SCHOOL COUNSELOR [place] Suicide Severity Rating Scale (C-SSRS) Entered On: 02/06/2020 13:24 EST Performed On: 02/06/2020 13:20 EST by RACHAEL QUINTANA RN [place] Suicide Severity Rating Scale (C-SSRS) CSSRS Past Month Wish to be : No CSSRS Past Month Suicidal Thoughts : No CSSRS Lifetime Suicide Behavior : No Suicide Severity Rating Score : 0 Suicide Severity Rating : No Additional Care Required at this time RACHAEL QUINTANA RN - 02/06/2020 13:20 EST Electronically signed by Tadeo [facility] Conversion Quality Inspector Cerner at 06/09/2022 3:31 PM CDT documented in this encounter Plan of Treatment Not on file documented as of this encounter Visit Diagnoses Not on filedocumented in this encounter Care Teams Pugger Helper Relationship Specialty Start Date End Date Jayden Rowan MD [address] [place] [phone] PCP - General General Internal Medicine 07/05/22 documented as of this encounter
--- OUTSIDE RECORDS SUMMARY | 2024-07-29 15:58 | XMS_ITS | Encounter Summary ---
Author Organization [employer] Address [address] [place] [address] Care Team Providers Care Guide Name Role Phone Jayden Rowan MD Primary Care Provider Encounter Details Date Type Department Care Team (Late st Contact Info) Description 06/19/2019 Transcribed Document [facility] Family Medicine [facility] [place] [address] ProviderJason MD [address] [place] [address] Social History Tobacco Use Types Packs/Day Years Used Date Smoking Tobacco: Never Assessed Comments Unknown Sex and Gender Information Value Date Recorded Sex Assigned at Not on file Legal Sex Female 3:15 PM CDT Gender Identity Not on file Sexual Orientation Not on file documented as of this encounter Miscellaneous Notes * Cerner Conversion Note - Jason ProviderMD - 06/19/2019 11:14 PM CDT Electronically signed by Tadeo [facility] Conversion Fire Hazard Inspector Cerner at 06/09/2022 3:29 PM CDT documented in this encounter Plan of Treatment Not on file documented as of this encounter Visit Diagnoses Not on filedocumented in this encounter Care Teams Guide Relationship Specialty Start Date End Date Jayden Rowan MD [address] [place] [phone] PCP - General General Internal Medicine 07/05/22 documented as of this encounter
--- OUTSIDE RECORDS SUMMARY | 2024-07-29 15:58 | XMS_ITS | Clinical Summary ---
Author Organization [employer] Address [address] [place] [address] Care Team Providers Care Preschool Teacher Aide Name Role Phone Jayden Rowan MD Primary Care Provider [phone] Allergies Active Allergy Reactions Criticality Noted Date Comments Adhesive Tape Other (See Comments) 06/16/2015 Pulls skin Codeine Other (See Comments) Low 07/12/2011 Hydrocodone Other (See Comments) Low 07/12/2011 Nausea and vomiting Hydrocodone-Acetaminophe n Other (See Comments) 10/04/2011 Hydromorphone Other (See Comments) Low 07/12/2011 Nausea and vomiting Meperidine Other (See Comments) Low 10/30/2019 Nausea and vomiting Nausea and vomiting Metformin Other (See Comments) Low 12/11/2020 Vomiting Vomiting Methocarbamol Nausea And Vomiting 07/09/2021 Morphine Other (See Comments) Low 07/12/2011 Nausea and vomiting Nausea and vomiting Nausea and vomiting Ondansetron Other (See Comments) High 06/16/2015 Patient said made dizzy and vomit more Patient said made dizzy and vomit more Rizatriptan 01/24/2022 Wound Dressings Rash Low 06/16/2015 Sumatriptan 01/24/2022 Medications nitrofurantoin (Macrodantin) 50 MG capsule Take 1 capsule (50 mg total) by mouth 2 (two) times daily. 60 capsule 01/24/2022 Active clonazePAM (KlonoPIN) 1 MG tablet Take 1 tablet (1 mg total) by mouth 2 (two) times daily as needed. 06/01/2022 Active cyanocobalamin, vitamin B-12, 500 MCG tablet Take 1 tablet (500 mcg total) by mouth. Active Trulicity 0.75 mg/0.5 mL PnIj Inject subcutaneous ly. 06/23/2022 Active promethazine (PHENERGAN) 12.5 MG tablet Take 1 tablet (12.5 mg total) by mouth. 02/10/2022 Active rOPINIRole (REQUIP) 2 MG tablet Take 1 tablet (2 mg total) by mouth in the morning and 1 tablet (2 mg total) before bedtime. 05/30/2022 Active sertraline (ZOLOFT) 100 MG tablet Take 1 tablet (100 mg total) by mouth in the morning and 1 tablet (100 mg total) before bedtime. 06/13/2022 Active topiramate (TOPAMAX) 100 MG tablet Take 1 tablet (100 mg total) by mouth in the morning and 1 tablet (100 mg total) before bedtime. 06/01/2022 Active fluticasone-ume clidin-vilanter (Trelegy Ellipta) 200-62.5-25 mcg DsDv daily. Active pantoprazole (PROTONIX) 40 MG tablet daily. Active atorvastatin (LIPITOR) 80 MG tablet nightly. Active nitrofurantoin, macrocrystal-mo nohydrate, (MACROBID) 100 MG capsule Take 1 capsule (100 mg total) by mouth in the morning and 1 capsule (100 mg total) before bedtime. 20 capsule 07/08/2022 Active Active Problems Problem Noted Date Diagnosed Date History of migraine 06/14/2022 Hypertensive disorder 06/14/2022 Diabetes mellitus 09/23/2020 GERD (gastroesophageal reflux disease) Anxiety 04/12/2019 Depressive disorder 04/12/2019 Hypercholesterolemia 04/12/2019 Migraine headache 04/12/2019 Chronic obstructive pulmonary disease 01/24/2017 Posttraumatic stress disorder 01/24/2017 Type 2 diabetes mellitus without complication Smoker 08/15/2016 Overview (07/05/2022): Smoker 1ppd smoked since 18 yo never had cessation Social History Tobacco Use Types Packs/Day Years Used Date Smoking Tobacco: Every Day Cigarettes 0.5 44 Passive Smoke Exposure: Current Smokeless Tobacco: Never Alcohol Use Standard Drinks/Week Comments Never 0 (1 standard drink = 0.6 oz pur e alcohol) Interpersonal Safety Answer Date Record ed Family or friends hurt you Not on file 03/10 Family or friends insult you Not on file Family or friends threaten you Not on file 0 03/10/2023 Family or friends scream or curse at you Not on file 03/10/2023 Housing Stability Answer Date Recorded Living situation today Not on file Living situation problems Not on file 2023 Food Insecurity Answer Date Recorded Food run out past 12 months Not on file 02/20 Food did not last past 12 months Not on file 03/10/2023 Employment Answer Date Recorded Help finding and keeping a job Not on file 0 03/10/2023 Family and Community Support Answer Shadi e Recorded Help with Day to Day Activities Not on file 03/10/2023 Feeling Lonely or Isolated Not on file 03/10 Educational Attainment Answer Date Jean Carlos rded Speak language other than Montenegrin at home Not on file 03/10/2023 Want help with school or training Not on file 03/10/2023 Depression Answer Date Recorded PHQ-2 Risk Not on file 03/10/2023 Disabilities Answer Date Recorded Difficulty concentrating Not on file 024 Difficulty doing errands alone Not on file 0 03/10/2023 Substance Use Answer Date Recorded Used prescription meds for non-medical reasons N ot on file 03/10/2023 Used illegal drugs past 12 months Not on file 03/10/2023 Comments No Sex and Gender Information Value Date Recorded Sex Assigned at Not on file Legal Sex Female 3:15 PM CDT Gender Identity Not on file Sexual Orientation Not on file Last Filed Vital Signs Vital Sign Reading Time Taken Comments Blood Pressure 98/48 07/08/2022 11:46 AM EDT Pulse 63 07/08/2022 11:46 AM EDT Temperature 36.6 C (97.9 F) 07/08/2022 6:05 AM EDT Respiratory Rate 16 07/08/2022 2:07 AM EDT Oxygen Saturation 96% 07/08/2022 7:46 AM EDT Inhaled Oxygen Concentration - - Weight 67.1 kg (148 lb) 07/05/2022 11:41 AM EDT Height 162.6 cm (5' 4 ) 07/05/2022 11:41 AM EDT Body Mass Index 25.4 07/05/2022 11:41 AM EDT Plan of Treatment Health Maintenance Due Date Last Done Comments CT Colonography 1955 Colonoscopy 1955 Colorectal Cancer Screening 1955 DXA SCAN 1955 Diabetic Kidney Health Evalu ation (KED) 1955 FOBT/FIT 1955 Fit-DNA (Cologuard) 1955 Sigmoidoscopy 1955 Diabetic Eye Exam 1967 Diabetic foot exam 1967 Hepatitis C Screening 1975 DTAP/TDAP/TD VACCINES (1 - Tdap) 02/15/1976 Breast Cancer Screening 1997 Respiratory Syncytial Virus (RSV) Adult or (1 - Risk 60-74 years 1-dose series) 2017 Shingles Vaccine (Zoster) (2 of 2) 11/29/20182018 Hemoglobin A1C 01/05/2023 07/05/2022 Tobacco Cessation Counseling and Screening (12+) 07/06/2023 07/05/2022 COVID-19 VACCINE ( - season) 2023 10/04/2020, 05/28/2020, 05/28/2020 Falls Risk Screening 02/21/2024 Influenza Vaccine (Season Ended) 2024 10/05/19 19, 11/08/2017 Pneumococcal 50+ years Completed 01/03/2022, 2018 Procedures Procedure Name Priority Date/Time Associated Diagnosis Comments HEMOGLOBIN A1C Routine 07/05/2022 12:26 PM EDT Preop testing from Last 3 Months or Most Recently Relevant to Health Maintenance Results * Hemoglobin A1c (07/05/2022 12:26 PM EDT) Hemoglobin A1C 6.7 % 07/05/2022 9:44 PM EDT [facility] Comment: Hemoglobin A1C levels are related to mean glucose during the preceding 2-3 months. Less than 7% demonstrates glycemic control in diabetic patients. Hemoglobin AlC % Suggested Diagnosis > or = 6.5 Diabetic 5.7 - 6.4 Prediabetic <5.7 Non-diabetic eAVG Glucose 145.59 mg/dL 07/05/2022 9:44 PM EDT [facility] Blood Venipuncture / Unknown 07/05/2022 12:26 PM EDT 07/05/2022 12:26 PM EDT us Fady Bates MD LAB BLOOD ORDERABLES Final Res ult [facility] [address] [phone] from Last 3 Months or Most Recently Relevant to Health Maintenance Insurance MEDICAID [place] [employer] [place] Advance Directives For more information, please contact: [phone] Documents on File Type Date Recorded Patient Exhibitions Curator Expl anation Advance Directives and Livin g Will 07/07/2022 7:11 AM * Full Code (Latest Code Status on File) Date Activated Date Inactivated Comments 07/07/2022 4:06 PM 07/08/2022 4:14 PM Care Teams Preschool Teacher Aide Relationship Specialty Start Date End Date Jayden Rowan MD [address] [place] [phone] PCP - General General Internal Medicine 07/05/22
--- OUTSIDE RECORDS SUMMARY | 2024-07-29 15:58 | XMS_ITS | Referral Summary ---
Author Organization [employer] Address [address] [place] [address] Care Team Providers Care Adjunct Faculty Name Role Phone Jayden Rowan MD Primary Care Provider [phone] Allergies Active Allergy Reactions Criticality Noted Date [...] Jean Carlos rded Speak language other than Sudanese at home Not on file 03/10/2023 Want [...] Mass Index 25.4 07/05/2022 11:41 AM EDT Functional Status * Are you deaf or do you have serious difficulty hearing? Answer Date of Assessment Author No 07/08/2022 2:52 PM CDT Bouchra Gonzalez RN * Are you blind or do you have serious difficulty seeing, even when wearing glasses? Answer Date of Assessment Author No 07/08/2022 2:52 PM CDT Bouchra Gonzalez RN * Do you have serious difficulty walking or climbing stairs? Answer Date of Assessment Author No 07/08/2022 2:52 PM CDT Bouchra Gonzalez RN * Do you have serious difficulty dressing or bathing? Answer Date of Assessment Author No 07/08/2022 2:52 PM CDT Bouchra Gonzalez RN * Because of a physical, mental, or emotional condition, do you have serious difficulty doing errandsalone such as visiting the doctor? Answer Date of Assessment Author No 07/08/2022 2:52 PM CDT Bouchra Gonzalez RN Mental Status * Because of a physical, mental, or emotional condition, do you have serious difficulty concentrating, remembering, or making decisions? (5 years old or older) Answer Entry Date Author No 07/08/2022 2:52 PM SELENAT Bouchra Gonzalez RN Plan of Treatment Not on file Procedures Procedure Name Priority Date/Time Associated Diagnosis Comments HEMOGLOBIN A1C Routine 07/05/2022 12:26 PM EDT Preop testing from Last 3 Months or Most Recently Relevant to Health Maintenance Results * Hemoglobin A1c (07/05/2022 12:26 PM EDT) Hemoglobin A1C 6.7 % 07/05/2022 9:44 PM EDT [facility] Comment: Hemoglobin A1C levels are related to mean glucose during the preceding 2-3 months. Less than 7% demonstrates glycemic control in diabetic patients. Hemoglobin AlC % Suggested Diagnosis > or = 6.5 Diabetic 5.7 - 6.4 Prediabetic <5.7 Non-diabetic eAVG Glucose 145.59 mg/dL 07/05/2022 9:44 PM EDT [facility] Blood Venipuncture / Unknown 07/05/2022 12:26 PM EDT 07/05/2022 12:26 PM EDT us Fady Bates MD LAB BLOOD ORDERABLES Final Res ult [facility] [address] [phone] from Last 3 Months or Most Recently Relevant to Health Maintenance Insurance MEDICAID OF [place] [employer] [place] Advance Directives For more information, please contact: [phone] Documents on File Type Date Recorded Patient Welder Expl anation Advance Directives and Ramesh g Will 07/07/2022 7:11 AM * Full Code (Latest Code Status on File) Date Activated Date Inactivated Comments 07/07/2022 4:06 PM 07/08/2022 4:14 PM Care Teams Adjunct Faculty Relationship Specialty Start Date End Date Jayden Rowan MD [address] [place] [phone] PCP - General General Internal Medicine 07/05/22
--- OUTSIDE RECORDS SUMMARY | 2024-07-29 15:58 | XMS_ITS | Encounter Summary ---
Author Organization [employer] Address [address] [place] [address] Care Team Providers Care Elevator Repairer Apprentice Name Role Phone Leanna Rivera MD Primary Care Provider [phone] Encounter Details Date Type Department Care Team (Late st Contact Info) Description 10/19/2021 Transcribed Document [facility] [place] [facility] [place] [address] ProviderJason MD [address] [place] [id number] Social History Tobacco Use Types Packs/Day Years Used Date Smoking Tobacco: Never Assessed Comments Unknown Sex and Gender Information Value Date Recorded Sex Assigned at Not on file Legal Sex Female 3:15 PM CDT Gender Identity Not on file Sexual Orientation Not on file documented as of this encounter Miscellaneous Notes * Cerner Conversion Note - Jason Zendejas MD - 10/19/2021 3:45 PM CDT Patient: CECILE RAMIREZ Age: 66 years Sex: Female : 1955 Associated Diagnoses: Migraine Author: GABRIELA BOYCE MD-EMR Basic Information Additional information: Chief Complaint from Nursing Triage Note : Chief Complaint 10/19/2021 15:34 EDT Chief Complaint C/O migraine x3 days. States takes injections but next one not due until Oct. States this is her regular migraine. . History of Present Illness 66-year-old female with a history of migraines presents with a migraine headache. Ongoing for about 3 days. No current home medications other than an injection every 90 days. Its been about a month since her prior injection. Review of Systems Constitutional symptoms: Negative except as documented in HPI. Skin symptoms: Negative except as documented in HPI. Eye symptoms: Negative except as documented in HPI. ENMT symptoms: Negative except as documented in HPI. Respiratory symptoms: Negative except as documented in HPI. Cardiovascular symptoms: Negative except as documented in HPI. Gastrointestinal symptoms: Negative except as documented in HPI. Genitourinary symptoms Musculoskeletal symptoms: Negative except as documented in HPI. Neurologic symptoms: Negative except as documented in HPI. Psychiatric symptoms: Negative except as documented in HPI. Health Status Allergies: Allergic Reactions (Selected) Severity Not Documented Acetaminophen-HYDROcodone- No reactions were documented. Codeine- No reactions were documented. HYDROmorphone- No reactions were documented. Imitrex- No reactions were documented. Maxalt- No reactions were documented. MetFORMIN- No reactions were documented. Morphine- No reactions were documented. Zofran- No reactions were documented.. Medications: (Selected) Inpatient Medications Ordered Phenergan: 25 mg, IntraMuscular, 1-Time fentaNYL: 100 mcg, IntraMuscular, 1-Time Prescriptions Prescribed aspirin 81 mg oral tablet: 1 Tab, Oral, Daily, 100 Tab, 0 Refill(s) indomethacin 25 mg oral capsule: 1 Cap, Oral, TID, for 7 Day(s), with food or milk, 21 Cap, 0 Refill(s) promethazine 25 mg oral tablet: 1 Tab, Oral, BID, 12 Tab, 0 Refill(s) promethazine 25 mg oral tablet: 1 Tab, Oral, Q6H, PRN: as needed for nausea/vomiting, 15 Tab, 0 Refill(s) Documented Medications Documented Lipitor: 80 mg, At Bedtime, 0 Refill(s) Topamax: Oral, BID, 0 Refill(s) Trelegy Ellipta 200 mcg-62.5 mcg-25 mcg/inh inhalation powder: Puff, Inhalation, Daily, 0 Refill(s) Zoloft: 200 mg, Daily, 0 Refill(s) clonazePAM: Oral, TID, 0 Refill(s) rOPINIRole 1 mg oral tablet: 1 Tab, Oral, At Bedtime, 0 Refill(s). Past Medical/ Family/ Social History Surgical history: bladder sling. hysterectomy. neck disc sx. appendectomy. hernia repair x2. gallbladder sx.. Family history: No family history items have been selected or recorded.. Social history: Social & Psychosocial Habits Alcohol [...] or more cigarettes p Packs/Tins Daily 1.5 . Problem list: Active Problems (11) Anxiety Appendectomy Bladder Cholecystectomy COPD (chronic obstructive pulmonary disease) Depression Diabetes mellitus GERD (gastroesophageal reflux disease) High cholesterol Hysterectomy Migraine . Physical Examination Vital Signs Vital Signs/Vital Measures 10/19/2021 15:34 EDT Blood Pressure Location Arm, right upper Blood Pressure Source Palpated Systolic Blood Pressure 125 mmHg Diastolic Blood Pressure 71 mmHg Temperature Source Oral Temperature Mode Fahrenheit Temperature, Fahrenheit 98.2 Deg F Clinical Temperature, C 36.8 Deg C Peripheral Pulse Rate 109 bpm HI Respiratory Rate 16 Breaths/Min Oxygen Saturation 96 % . Measurements 10/19/2021 15:34 EDT Height Source Stated Height Entry Format [place] Height/Length, UPPER SORBIAN (ft) 5 ft Height/Length UPPER SORBIAN 3 Inch CLINICALHEIGHT 160.02 cm [place] Body Weight 52.02 kg Weight Source, ED Critical estimated dosing weight Weight Entry Format [place] Weight Luxem[place]ish lb 136 lb CLINICALWEIGHT 61.82 kg Body Surface Area (BSA) 1.64 m2 Body Mass Index 24.1 kg/m2 HI . Oxygen Saturation 10/19/2021 15:34 EDT Oxygen Saturation 96 % . General: Alert, no acute distress. Skin: Warm, dry. Head: Normocephalic, atraumatic. Neck: Trachea midline. Eye: Pupils are equal, round and reactive to light, extraocular movements are intact. Respiratory: Respirations are non-labored, Symmetrical chest wall expansion. Musculoskeletal: Normal ROM, normal strength. Neurological: Alert and oriented to person, place, time, and situation, No focal neurological deficit observed. Psychiatric: Cooperative, appropriate mood & affect. Medical Decision Making Differential Diagnosis: Migraine. Documents reviewed: Emergency department nurses' notes. Impression and Plan Diagnosis Migraine - Discharge, Emergency medicine, Medical Plan Patient was given the following educational materials: Migraine Headache, Migraine Headache. Follow up with: LEANNA RIVERA Within 2 to 3 days; Follow up with primary care provider Within 2 to 3 days Arrange follow-up with your doctor. Return if worse.. Electronically signed by Tadeo [facility] Conversion Pump Tester Cerner at 06/09/2022 3:26 PM CDT documented in this encounter Plan of Treatment Not on file documented as of this encounter Visit Diagnoses Not on filedocumented in this encounter Care Teams Elevator Repairer Apprentice Relationship Specialty Start Date End Date Leanna Rivera MD [address] [place] [phone] PCP - General General Internal Medicine 07/05/22 documented as of this encounter
--- OUTSIDE RECORDS SUMMARY | 2024-07-29 15:58 | XMS_ITS | Encounter Summary ---
Author Organization [employer] Address [address] [place] [address] Care Team Providers Care Conservation Assistant Name Role Phone Leanna Rivera MD Primary Care Provider [phone] Encounter Details Date Type Department Care Team (Late st Contact Info) Description 04/30/2019 Transcribed Document [facility] Family Medicine [facility] [place] [address] ProviderJason MD [address] [place] [id number] Social History Tobacco Use Types Packs/Day Years Used Date Smoking Tobacco: Never Assessed Comments Unknown Sex and Gender Information Value Date Recorded Sex Assigned at Not on file Legal Sex Female 3:15 PM CDT Gender Identity Not on file Sexual Orientation Not on file documented as of this encounter Miscellaneous Notes * Cerner Conversion Note - Jason Zendejas MD - 04/30/2019 2:40 PM CDT [facility] [address] [place] [address] CECILE RAMIREZ DARREN :1955 Visit Time:04/30/2019 Your Visit Summary Your Care Team Primary Provider: RIAN JORGENSEN Secondary Provider: Your Diagnosis SAUCEDO - Headache Migraine Medical Information You may obtain [...] do next Follow-Up Appointments Follow Up with LEANNA RIVERA When Within 2 to 3 days Where: [address] [place] [address] [address] [place] [address]- Business (1) Allergies HYDROmorphone Imitrex Maxalt Zofran acetaminophen-HYDROcodone codeine morphine Immunizations This Visit No Immunizations Found Medications What How Much When Instructions Next Dose amitriptyline (amitriptyline 25 mg oral tablet) Oral At Bedtime aspirin (aspirin 81 mg oral tablet) 1 Tablet(s) Oral Every Day atorvastatin (Lipitor) 80 Milligram(s) At Bedtime clonazePAM Oral Three Times A Day fluticasone-vilanterol (Breo Ellipta 200 mcg-25 mcg/ inh inhalation powder) Inhalation Every Day gabapentin Oral prochlorperazine (Compazine) promethazine (promethazine 25 mg oral tablet) Oral Every 6 Hours as needed for as needed for nausea/vomiting rOPINIRole (rOPINIRole 1 mg oral tablet) 1 [...] This Visit (last charted value for your 04/30/2019 visit) No Laboratory or Other Results This Visit Education Materials Migraine Headache A migraine headache is an intense, throbbing pain on one side or both sides of the head. Migraines may also cause other symptoms, such as nausea, vomiting, and sensitivity to light and noise. What are the causes? Doing or taking certain things may also trigger migraines, such as: ??? Alcohol. ??? Smoking. ??? Medicines, such as: ? Medicine used to treat chest pain (nitroglycerine). ? control pills. ? Estrogen pills. ? Certain blood pressure medicines. ??? Aged cheeses, chocolate, or caffeine. ??? Foods or drinks that contain nitrates, glutamate, aspartame, or tyramine. ??? Physical activity. Other things that may trigger a migraine include: ??? Menstruation. ??? . ??? Hunger. ??? Stress, lack of sleep, too much sleep, or fatigue. ??? Weather changes. What increases the risk? The following factors may make you more likely to experience migraine headaches: ??? Age. Risk increases with age. ??? Family history of migraine headaches. ??? Being . ??? Depression and anxiety. ??? Obesity. ??? Being a woman. ??? Having a hole in the heart (patent foramen ovale) or other heart problems. What are the signs or symptoms? The main symptom of this condition is pulsating or throbbing pain. Pain may: ??? Happen in any area of the head, such as on one side or both sides. ??? Interfere with daily activities. ??? Get worse with physical activity. ??? Get worse with exposure to bright lights or loud noises. Other symptoms may include: ??? Nausea. ??? Vomiting. ??? Dizziness. ??? General sensitivity to bright lights, loud noises, or smells. Before you get a migraine, you may get warning signs that a migraine is developing (aura). An aura may include: ??? Seeing flashing lights or having blind spots. ??? Seeing bright spots, halos, or zigzag lines. ??? Having tunnel vision or blurred vision. ??? Having numbness or a tingling feeling. ??? Having trouble talking. ??? Having muscle weakness. How is this diagnosed? A migraine headache can be diagnosed based on: ??? Your symptoms. ??? A physical exam. ??? Tests, such as CT scan or MRI of the head. These imaging tests can help rule out other causes of headaches. ??? Taking fluid from the spine (lumbar puncture) and analyzing it (cerebrospinal fluid analysis, or CSF analysis). How is this treated? A migraine headache is usually treated with medicines that: ??? Relieve pain. ??? Relieve nausea. ??? Prevent migraines from coming back. Treatment may also include: ??? Acupuncture. ??? Lifestyle changes like avoiding foods that trigger migraines. Follow these instructions at home: Medicines ??? Take ipnr-oyo-urbpewr and prescription medicines only as told by your health care provider. ??? Do not drive or use heavy machinery while taking prescription pain medicine. ??? To prevent or treat constipation while you are taking prescription pain medicine, your health care provider may recommend that you: ? Drink enough fluid to keep your urine clear or pale yellow. ? Take dwit-cko-crfxpon or prescription medicines. ? Eat foods that are high in fiber, such as fresh fruits and vegetables, whole grains, and beans. ? Limit foods that are high in fat and processed sugars, such as fried and sweet foods. Lifestyle ??? Avoid alcohol use. ??? Do not use any products that contain nicotine or tobacco, such as cigarettes and e-cigarettes. If you need help quitting, ask your health care provider. ??? Get at least 8 hours of sleep every night. ??? Limit your stress. General instructions ??? Keep a journal to find out what may trigger your migraine headaches. For example, write down: ? What you eat and drink. ? How much sleep you get. ? Any change to your diet or medicines. ??? If you have a migraine: ? Avoid things that make your symptoms [...] or more severe than your usual migraine symptoms. Get help right away if: ??? Your migraine becomes severe. ??? You have a fever. ??? You have a stiff neck. ??? You have vision loss. ??? Your muscles feel weak or like you cannot control them. ??? You start to lose your balance often. ??? You develop trouble walking. ??? You faint. This information is not intended to replace advice given to you by your health care provider. Make sure you discuss any questions you have with your health care provider. Document Released: 02/06/2006 Document Revised: 08/26/2016 Document Reviewed: 07/25/2016 [employer] Interactive Patient Education ?? 2019 [employer] Emergency Awareness and Preventative Care STROKE is [...] Assistance with quitting is available by contacting NOW. This is a free resource providing counseling, [...] was given the opportunity to ask questions. Patient/Logistics Operations Manager Name: Patient/Logistics Operations Manager Signature: Relationship to Patient: Clinician/Hospital Logistics Operations Manager Signature: Please Provide a Telephone Number Where You Can Be Reached: Is it Permissible To Leave a Message? Date: documented in this encounter Plan of Treatment Not on file documented as of this encounter Visit Diagnoses Not on filedocumented in this encounter Care Teams Conservation Assistant Relationship Specialty Start Date End Date Leanna Rivera MD [address] [place] [phone] PCP - General General Internal Medicine 07/05/22 documented as of this encounter
--- OUTSIDE RECORDS SUMMARY | 2024-07-29 15:58 | XMS_ITS | Encounter Summary ---
Author Organization [employer] Address [address] [place] [address] Care Team Providers Care Oracle Iam Consultant Name Role Phone Jayden Rowan MD Primary Care Provider [phone] Encounter Details Date Type Department Care Team (Late st Contact Info) Description 06/10/2020 Transcribed Document [facility] [place] [facility] [place] [address] ProviderJason MD [address] [place] [address] Social History Tobacco Use Types Packs/Day Years Used Date Smoking Tobacco: Never Assessed Comments Unknown Sex and Gender Information Value Date Recorded Sex Assigned at Not on file Legal Sex Female 3:15 PM CDT Gender Identity Not on file Sexual Orientation Not on file documented as of this encounter Miscellaneous Notes * Cerner Conversion Note - Jason Zendejas MD - 06/10/2020 11:04 PM CDT Pain Assessment Entered On: 06/11/2020 0:37 EDT Performed On: 06/11/2020 0:05 EDT by Kimmy Childs RN-PATIENT CARE BEDSIDE NON-EXEMPT Intervention Information: ketorolac Performed by Angélica Mendez RN on 06/10/2020 23:28:00 EDT ketorolac,30mg IV Push,Right Antecubit Carmen Pain Assessment Pain Assessment : Follow-up assessment Pain Scale Used : 0-10 Scale Kimmy Childs RN-PATIENT CARE BEDSIDE NON-EXEMPT - 06/11/2020 0:36 EDT Pain Scale Intensity : 0 Kimmy Childs RN-PATIENT CARE BEDSIDE NON-EXEMPT - 06/11/2020 0:36 EDT Image 4 - Images currently included in the form version of this document have not been included in the text rendition version of the form. documented in this encounter Plan of Treatment Not on file documented as of this encounter Visit Diagnoses Not on filedocumented in this encounter Care Teams Oracle Iam Consultant Relationship Specialty Start Date End Date Jayden Rowan MD [address] [place] [phone] PCP - General General Internal Medicine 07/05/22 documented as of this encounter
--- OUTSIDE RECORDS SUMMARY | 2024-07-29 15:58 | XMS_ITS | Encounter Summary ---
Author Organization [employer] Address [address] [place] [address] Care Team Providers Care Construction Estimator Name Role Phone Jayden Rowan MD Primary Care Provider [phone] Encounter Details Date Type Department Care Team (Late st Contact Info) Description 06/19/[address] [facility] [place] [facility] [place] [address] ProviderJason MD [address] [place] [address] Social History Tobacco Use Types Packs/Day Years Used Date Smoking Tobacco: Never Assessed Comments Unknown Sex and Gender Information Value Date Recorded Sex Assigned at Not on file Legal Sex Female 3:15 PM CDT Gender Identity Not on file Sexual Orientation Not on file documented as of this encounter Miscellaneous Notes * Cerner Conversion Note - Jason Zendejas MD - 06/19/2019 8:59 PM CDT [place] Suicide Severity Rating Scale (C-SSRS) Entered On: 06/19/2019 21:09 EDT Performed On: 06/19/2019 21:09 EDT by Dottie Baltazar RN [place] Suicide Severity Rating Scale (C-SSRS) CSSRS Past Month Wish to be : No CSSRS Past Month Suicidal Thoughts : No CSSRS Lifetime Suicide Behavior : No Suicide Severity Rating Score : 0 Suicide Severity Rating : No Additional Care Required at this time Dottie Baltazar RN - 06/19/2019 21:09 EDT Electronically signed by Jolie Piedra Conversion Refrigerated National Truck Driver Cerner at 06/09/2022 3:28 PM CDT documented in this encounter Plan of Treatment Not on file documented as of this encounter Visit Diagnoses Not on filedocumented in this encounter Care Teams Construction Estimator Relationship Specialty Start Date End Date Jayden Rowan MD [address] [place] [phone] PCP - General General Internal Medicine 07/05/22 documented as of this encounter
--- OUTSIDE RECORDS SUMMARY | 2024-07-29 15:58 | XMS_ITS | Encounter Summary ---
Author Organization [employer] Address [address] [place] [address] Care Team Providers Care Service Bar Cashier Name Role Phone Jayden Rowan MD Primary Care Provider [phone] Encounter Details Date Type Department Care Team (Late st Contact Info) Description 02/06/2020 Transcribed Document [facility] [place] [facility] [place] [address] ProviderJason MD [address] [place] [id number] Social History Tobacco Use Types Packs/Day Years Used Date Smoking Tobacco: Never Assessed Comments Unknown Sex and Gender Information Value Date Recorded Sex Assigned at Not on file Legal Sex Female 3:15 PM CDT Gender Identity Not on file Sexual Orientation Not on file documented as of this encounter Miscellaneous Notes * Cerner Conversion Note - Jason Zendejas MD - 02/06/2020 2:02 PM INDUSTRIAL SWEEPER CLEANER ED Discharge Entered On: 02/06/2020 14:03 EST Performed On: 02/06/2020 14:02 EST by Tori Rolon RN Discharge Process Patient Disposition : Discharge Personal Belongings With Patient : Yes Patient Education Completed : Yes Teaching Evaluation : Verbalizes understanding IV Discontinued : Not applicable Nursing Documentation Completed : Yes Tori Rolon RN - 02/06/2020 14:02 EST ED Discharge Vital Signs Peripheral Pulse Rate : 94 bpm Respiratory Rate : 18 Breaths/Min Systolic Blood Pressure : 126 mmHg Diastolic Blood Pressure : 68 mmHg Oxygen Saturation : 97 % Oxygen Therapy Mode : Room air Tori Rolon RN - 02/06/2020 14:02 EST ED Discharge Discharge To : Home with ambulatory/outpatient follow-up Mode Of Departure : Ambulatory Accompanied By : Responsible adult Discharge Instructions Reviewed With, Opportunity For Questions Given : Patient Prescriptions Given to Patient : No Medications Given to Patient : Yes Number of Medications Given : 1 Tori Rolon RN - 02/06/2020 14:02 EST documented in this encounter Plan of Treatment Not on file documented as of this encounter Visit Diagnoses Not on filedocumented in this encounter Care Teams Service Bar Cashier Relationship Specialty Start Date End Date Jayden Rowan MD [address] [place] [phone] PCP - General General Internal Medicine 07/05/22 documented as of this encounter
--- OUTSIDE RECORDS SUMMARY | 2024-07-29 15:58 | XMS_ITS | Encounter Summary ---
Author Organization [employer] Address [address] [place] [address] Care Team Providers Care Airplane Fueler Name Role Phone Jayden Rowan MD Primary Care Provider [phone] Encounter Details Date Type Department Care Team (Late st Contact Info) Description 02/06/2020 Transcribed Document [facility] Family Medicine [address] [place] [address] ProviderJason MD [address] [place] [address] Social History Tobacco Use Types Packs/Day Years Used Date Smoking Tobacco: Never Assessed Comments Unknown Sex and Gender Information Value Date Recorded Sex Assigned at Not on file Legal Sex Female 3:15 PM CDT Gender Identity Not on file Sexual Orientation Not on file documented as of this encounter Miscellaneous Notes * Cerner Conversion Note - Jason ProviderMD - 02/06/2020 1:15 PM COLD ROLL PACKER SHEET IRON Broset Violence Assessment Entered On: 02/06/2020 13:24 EST Performed On: 02/06/2020 13:20 EST by RACHAEL QUINTANA RN Broset Violence Assessment Broset Violence Checklist of Symptoms : None Broset Violence Symptoms Subtotal : 0 Broset Violence Symptoms Indicator : Low risk (0) Broset Interventions : [place] precautions for safety used RACHAEL QUINTANA RN - 02/06/2020 13:20 EST Electronically signed by [facility] Conversion Master Automotive Technician Cerner at 06/09/2022 3:30 PM CDT documented in this encounter Plan of Treatment Not on file documented as of this encounter Visit Diagnoses Not on filedocumented in this encounter Care Teams Airplane Fueler Relationship Specialty Start Date End Date Jayden Rowan MD [address] [place] [phone] PCP - General General Internal Medicine 07/05/22 documented as of this encounter
--- OUTSIDE RECORDS SUMMARY | 2024-07-29 15:58 | XMS_ITS | Encounter Summary ---
Author Organization [employer] In [employer]atives Address [address] [place] [address] Care Team Providers Care Product Development Coordinator Name Role Phone Jayden Rowan MD Primary Care Provider [phone] Encounter Details Date Type Department Care Team (Late st Contact Info) Description 10/19/2021 Transcribed Document [facility] Family Medicine [address] [place] [address] ProviderJason MD [address] [place] [address] Social History Tobacco Use Types Packs/Day Years Used Date Smoking Tobacco: Never Assessed Comments Unknown Sex and Gender Information Value Date Recorded Sex Assigned at Not on file Legal Sex Female 3:15 PM CDT Gender Identity Not on file Sexual Orientation Not on file documented as of this encounter Miscellaneous Notes * Cerner Conversion Note - Jason Zendejas MD - 10/19/2021 3:28 PM CDT Broset Violence Assessment Entered On: 10/19/2021 15:40 EDT Performed On: 10/19/2021 15:40 EDT by Montserrat Dale RN Broset Violence Assessment Broset Violence Checklist of Symptoms : None Broset Violence Symptoms Subtotal : 0 Broset Violence Symptoms Indicator : Low risk (0) Montserrat Dale RN - 10/19/2021 15:40 EDT documented in this encounter Plan of Treatment Not on file documented as of this encounter Visit Diagnoses Not on filedocumented in this encounter Care Teams Product Development Coordinator Relationship Specialty Start Date End Date Usery, Jayden R, MD [address] [place] [phone] PCP - General General Internal Medicine 07/05/22 documented as of this encounter
--- OUTSIDE RECORDS SUMMARY | 2024-07-29 15:58 | XMS_ITS | Encounter Summary ---
Author Organization [employer] Address [address] [place] [address] Care Team Providers Care Supervisor Denture Department Name Role Phone Leanna Rivera MD Primary Care Provider [phone] Encounter Details Date Type Department Care Team (Late st Contact Info) Description 09/05/2018 Transcribed Document [facility] Radiology [address] [place] [id number] Gali Garrett MD [facility] Dept [place] [address] Social History Tobacco Use Types Packs/Day Years Used Date Smoking Tobacco: Never Assessed Comments Unknown Sex and Gender Information Value Date Recorded Sex Assigned at Not on file Legal Sex Female 3:15 PM CDT Gender Identity Not on file Sexual Orientation Not on file documented as of this encounter Miscellaneous Notes * Cerner Conversion Note - Gali Garrett MD - 09/05/2018 4:32 PM EDT Patient: CECILE RAMIREZ Age: 63 years Sex: Female : 1955 Associated Diagnoses: Migraine Author: GALI GARRETT MD Basic Information Time seen: Date & time 09/05/2018 15:25:00. History source: Patient. Arrival mode: Private vehicle. History limitation: None. Additional information: Chief Complaint from Nursing Triage Note : Chief Complaint 09/05/2018 15:02 EDT Chief Complaint c/o headache since 0300, hx of same . History of Present Illness Patient presents with 12 hours of migraine headache. Patient has a long history of migraines, states this feels the same as all the rest for migraines. She woke up with this headache around 3 AM this morning. Headache is posterior in nature, a prior headaches. Pain is constant and throbbing, no alleviating factors. She has not tried anything except her Valium at home. Headache is aggravated by light and sound. She has associated nausea and vomiting. She has had some blurred vision which is typical of her migraines. No new numbness, tingling, or weakness. No head injuries prior to this migraine. No fevers at home.. Review of Systems Constitutional symptoms: Negative except as documented in HPI. Skin symptoms: Negative except as documented in HPI. Eye symptoms: Blurred vision. Respiratory symptoms: Negative except as documented in HPI. Cardiovascular symptoms: Negative except as documented in HPI. Gastrointestinal symptoms: Nausea, vomiting. Musculoskeletal symptoms: Negative except as documented in HPI. Neurologic symptoms: Headache. Psychiatric symptoms: Negative except as documented in HPI. Hematologic/Lymphatic symptoms: Negative except as documented in HPI. Health Status Allergies: Allergic Reactions (Selected) Severity Not Documented Acetaminophen-HYDROcodone- No reactions were documented. Codeine- No reactions were documented. HYDROmorphone- No reactions were documented. Imitrex- No reactions were documented. Maxalt- No reactions were documented. Morphine- No reactions were documented. Zofran- No reactions were documented.. Medications: (Selected) Prescriptions Prescribed aspirin 81 mg oral tablet: 1 Tab, Oral, Daily, 100 Tab, 0 Refill(s) Documented Medications Documented Abilify 5 mg oral tablet: 1 Tab, Oral, Daily, 30 Tab, 0 Refill(s) Breo Ellipta 200 mcg-25 mcg/inh inhalation powder: Puff, Inhalation, Daily, 0 Refill(s) Breo Ellipta: Inhalation, Daily, 0 Refill(s) Combivent Respimat: Puff, Inhalation, QID, 0 Refill(s) Flexeril: 10 mg, Oral, At Bedtime, 0 Refill(s) Lipitor: 80 mg, At Bedtime, 0 Refill(s) Myrbetriq 50 mg oral tablet, extended release: Tab, Oral, Daily, 0 Refill(s) Valium: 5 mg, TID, PRN: as needed for anxiety, 0 Refill(s) Zoloft: 200 mg, Daily, 0 Refill(s) amitriptyline 25 mg oral tablet: Tab, Oral, At Bedtime, 0 Refill(s) promethazine 25 mg oral tablet: Tab, Oral, Q6H, PRN: as needed for nausea/vomiting, 0 Refill(s) rOPINIRole 1 mg oral tablet: 1 Tab, Oral, At Bedtime, 0 Refill(s). Past Medical/ Family/ Social History Medical history Reviewed as documented in chart. Surgical history: bladder sling. hysterectomy. neck disc sx. appendectomy. hernia repair x2. gallbladder sx., Reviewed as documented in chart. Family history: No family history items have been selected or recorded., Reviewed as documented in chart. Social history: [...] (gastroesophageal reflux disease) High cholesterol Hysterectomy Migraine , per nurse's notes. Physical Examination Vital Signs Vital Signs/Vital Measures 09/05/2018 15:02 EDT Systolic Blood Pressure 154 mmHg HI Diastolic Blood Pressure 68 mmHg Temperature Source Oral Temperature Mode Fahrenheit Temperature, Fahrenheit 97.9 Deg F Clinical Temperature, C 36.6 Deg C Peripheral Pulse Rate 109 bpm HI Respiratory Rate 18 Breaths/Min Oxygen Saturation 96 % Oxygen Therapy Mode Room air . Measurements 09/05/2018 15:02 EDT Height Source Stated Height Entry Format [place] Height/Length, KOREAN (ft) 5 ft Height/Length KOREAN 4 Inch CLINICALHEIGHT 162.56 cm [place] Body Weight 54.3 kg Weight Source, ED Critical estimated dosing weight Weight Entry Format [place] Weight Frisian lb 162 lb CLINICALWEIGHT 73.64 kg Body Surface Area (BSA) 1.79 m2 Body Mass Index 27.9 kg/m2 HI . Oxygen Saturation 09/05/2018 15:02 EDT Oxygen Saturation 96 % . General: Alert, no acute distress. Skin: Warm, dry, pink. Head: Normocephalic, atraumatic. Eye: Pupils are equal, round and reactive to light, extraocular movements are intact, normal conjunctiva. Ears, nose, mouth and throat: Oral mucosa moist. Cardiovascular: Regular rate and rhythm, No murmur. Respiratory: Lungs are clear to auscultation, respirations are non-labored. Musculoskeletal: Normal ROM, normal strength. Neurological: Alert and oriented to person, place, time, and situation, No focal neurological deficit observed, CN II-XII intact, normal sensory observed, normal motor observed, normal speech observed. Psychiatric: Cooperative, appropriate mood & affect. Medical Decision Making Differential Diagnosis: Migraine. Documents reviewed: Emergency department nurses' notes. Reexamination/ Reevaluation Time: 09/05/2018 15:52:00 . Course: improving. Pain status: decreased. Assessment: exam unchanged. Impression and Plan Diagnosis Migraine - Discharge, Emergency medicine, Medical Plan Condition: Improved, Stable. Disposition: Medically cleared, Discharged Admit/Transfer/Discharge: Discharge (Order): Start: 09/05/2018 15:53 EDT, Discharge to: Home. Patient was given the following educational materials: Migraine Headache. Follow up with: LEANNA RIVERA Within 2 to 3 days. Counseled: Patient, Regarding diagnosis, Regarding diagnostic results, Regarding treatment plan, Patient indicated understanding of instructions. documented in this encounter Plan of Treatment Not on file documented as of this encounter Visit Diagnoses Not on filedocumented in this encounter Care Teams Supervisor Denture Department Relationship Specialty Start Date End Date Leanna Rivera MD [address] [place] [phone] PCP - General General Internal Medicine 07/05/22 documented as of this encounter
--- OUTSIDE RECORDS SUMMARY | 2024-07-29 15:58 | XMS_ITS | Encounter Summary ---
Author Organization [employer] Address [address] [place] [address] Care Team Providers Care General Labor Forklift Operator Name Role Phone Leanna Rivera MD Primary Care Provider [phone] Encounter Details Date Type Department Care Team (Late st Contact Info) Description 05/23/[address] [facility] Family [place] [facility] [place] [address] ProviderJason MD [address] [place] [address] Social History Tobacco Use Types Packs/Day Years Used Date Smoking Tobacco: Never Assessed Comments Unknown Sex and Gender Information Value Date Recorded Sex Assigned at Not on file Legal Sex Female 3:15 PM CDT Gender Identity Not on file Sexual Orientation Not on file documented as of this encounter Miscellaneous Notes * Cerner Conversion Note - Jason Zendejas MD - 05/23/2018 6:05 PM CDT [address] [address] Patient Information Name: CECILE RAMIREZ Age: 63 Years Date of : 1955 Arrival Time: 05/23/2018 17:19:00 Diagnosis Migraine Primary Care Physician: LEANNA RIVERA MD-INT Provider Information Primary Provider: TONEY JORGENSEN MD Secondary Provider: CECILE RAMIREZ has been given the following list of patient education materials, prescriptions and follow-up instructions: Follow-up Instructions: With: Address: When: LEANNA RIVERA [address], [address] [place] [id number] Business (1) Within 2 to 3 days Patient Education Materials: Migraine Headache A migraine headache is an [...] these instructions at home: Medicines ??? Take orix-pcv-xtwskbk and prescription medicines only as told by your health care provider. ??? Do notdrive or use heavy machinery while taking prescription pain medicine. ??? To prevent or treat constipation while you are taking prescription pain medicine, your health care provider may recommend that you: ? Drink enough fluid to keep your urine clear or pale yellow. ? Take xedm-dxl-lxchnyj or prescription medicines. ? Eat foods that are high in fiber, such as fresh fruits and vegetables, whole grains, and beans. ? Limit foods that are high in fat and processed sugars, such as fried and sweet foods. Lifestyle ??? Avoid alcohol use. ??? Do notuse any products that contain nicotine or tobacco, [...] in a dark, quiet room. ? Do notdrive or use heavy machinery. ? Ask your [...] 02/06/2006 Document Revised: 08/26/2016 Document Reviewed: 07/25/2016 [employer] Patient Education ? 2017 [employer] Allergies: acetaminophen-HYDROcodone; Maxalt; Imitrex; Zofran; HYDROmorphone; morphine; codeine Medication Information: Laboratory or Other Results This Visit (last charted value for your 05/23/2018 visit) No Laboratory or Other Results This Visit Medication Comment: Procedures: Laboratory Orders No laboratory orders were placed. Radiology Orders No radiology orders were placed. Cardiology Orders No cardiology orders were placed. This statement is to verify that CECILE RAMIREZ [facility] ,05/23/2018 18:05:18. This is not a work excuse, if a work excuse was needed it will be in addition to this statement as a separate form. IMPORTANT: The examination and treatment you have received [...] that requires the expertise of a specialist. KEEP IN MIND THAT THE SPECIALIST HAS HIS/HER OWN OFFICE POLICIES WHICH MAY REQUIRE PROPER INSURANCE OR PAYMENT UP FRONT BEFORE THE SPECIALIST WILL SEE YOU. It is your responsibility to call the specialist physician to make an appointment. We do not have the ability to identify specialists/physicians that work with specific insurance companies. [...] necessary to obtain coverage for claims submitted. If you had special tests, such as EKG???s or X-rays, the interpretation of your tests given to you by the Emergency Dept. Physician is a preliminary report. Some fractures and illnesses fail to show up on preliminary tests. We will review them again within 24-48 hours. We will call you if there are any new suggestions. If your symptoms continue notify your physician. After you leave, you should follow the instructions below. In all events, you may obtain a copy of your Emergency Department visit from Medical Records. Please call to be directed to this department. We will bill your insurance; however, you are responsible today for any co-pay amounts. You will receive a separate bill for any services you may have received including: emergency, radiology, or pathology physicians. Please be sure we have an accurate contact phone number and address, should we need to call you for any reason. CIGARETTE SMOKING: The facts are clear; cigarette smoking will shorten your life. Smoking can cause many illnesses along the way. As a healthcare provider, [facility] recommends that you stop smoking. Assistance with quitting is available by contacting 0-120-TNEC-NOW. This is a free resource providing counseling, support, and referral. Or you may contact your personal physician. As part of your treatment plan, [...] cramping, rapid heartbeat, difficulty sleeping, and nervousness. The home medications listed are only as accurate as the information you provided. Please continue taking all of your medications prescribed by your Primary Care Provider unless specifically told to change or discontinue the medication. Please direct any questions regarding your home medications to your Primary Care Provider. YOU ARE THE MOST IMPORTANT FACTOR IN YOUR RECOVERY. ?? Follow your instructions carefully ?? Take your medicines as prescribed ?? Most important, see a provider as discussed. If you do not have a provider, we can provide a list of clinics Confidential This message and accompanying documents are covered by Electronic Communications Privacy Act 18 U.S.C. ???Sections 9197-0173,?? and contain information intended for the specified individual(s) only. This information is confidential. If you are not the intended recipient or an agent responsible for delivering it to the intended recipient, you are hereby notified that you have received the document in error and that any review, dissemination, copying, or the taking of any action based on the contents of this information is strictly prohibited. If you have received this communication in error, please notify us immediately by email, and delete the original message. 4 WAYS TO GET AHEAD OF SEPSIS SEPSIS is a MEDICAL EMERGENCY. Time matters! Infections put you and your family at risk for a life-threatening condition called sepsis. Sepsis is the body???s extreme response to an infection. It is life-threatening, and without timely treatment, sepsis can rapidly lead to tissue damage, organ failure, and . Sepsis happens when an infection you already have???in your skin, lungs, urinary tract or somewhere else???triggers a chain reaction throughout your body. 1 [...] sepsis or if you have an infection that???s not getting better or is getting worse. To learn more about sepsis and how to prevent infections, visit www.cdc.gov/sepsis. STROKE is an EMERGENCY [employer] ACT F.A.S.T! FACE ?? Facial droop ?? Uneven smile ARM ?? Arm numbness ?? Arm weakness SPEECH ?? Slurred speech ?? Difficulty speaking or understanding TIME ?? Call 911 and get to the hospital immediately Have the ambulance go to the nearest stroke center. STROKE Risk Factors High blood pressure High cholesterol Heart Disease Diabetes Smoking Heavy alcohol use Physical inactivity and obesity Atrial Fibrillation (irregular heartbeat) Family history of stroke Reminder: Be sure to sign up for the [employer] patient portal, which gives you 12/09 access to your medical information ??? including these discharge instructions ??? using your computer, smartphone, or tablet. Just go to [employer] to get started. Questions? Call . Acknowledgment I hereby acknowledge receipt of these instructions and information above. I understand that I have received Emergency Treatment only which is not a substitute for complete medical care and acknowledge that all of my medical problems may not be known, identified, or treated prior to my release. I UNDERSTAND THE NEED TO ARRANGE FOLLOW-UP CARE WITH THE PHYSICIAN INDICATED. I UNDERSTAND THAT I SHOULD CONTACT MY PHYSICIAN IMMEDIATELY OR RETURN TO THE EMERGENCY DEPARTMENT IF MY CONDITION WORSENS, FAILS TO IMPROVE, OR NEW SYMPTOMS APPEAR. Vital Signs B/P PULSE RESP. RATE TEMPERATURE PULSE OX Signature of Emergency Provider Date / Time Signature of Emergency Nurse Date / Time Acknowledgment I hereby acknowledge receipt of these instructions and information above. I understand that I have received Emergency Treatment only which is not a substitute for complete medical care and acknowledge that all of my medical problems may not be known, identified, or treated prior to my release. I UNDERSTAND THE NEED TO ARRANGE FOLLOW-UP CARE WITH THE PHYSICIAN INDICATED. I UNDERSTAND THAT I SHOULD CONTACT MY PHYSICIAN IMMEDIATELY OR RETURN TO THE EMERGENCY DEPARTMENT IF MY CONDITION WORSENS, FAILS TO IMPROVE, OR NEW SYMPTOMS APPEAR. Signature of Patient / Responsible Person Date / Time Please provide a telephone number where you can be reached. The best time to call is between: It is permissible to leave a message if no answer: Yes____ No____ Nurse Providing Instructions: Emergency Physician: documented in this encounter Plan of Treatment Not on file documented as of this encounter Visit Diagnoses Not on filedocumented in this encounter Care Teams General Labor Forklift Operator Relationship Specialty Start Date End Date Leanna Rivera MD [address] [place], [place] [address] [phone] PCP - General General Internal Medicine 07/05/22 documented as of this encounter
--- OUTSIDE RECORDS SUMMARY | 2024-07-29 15:58 | XMS_ITS | Encounter Summary ---
Author Organization [employer] Address [address] [place] [address] Care Team Providers Care Project Analyst Name Role Phone Jayden Rowan MD Primary Care Provider Encounter Details Date Type Department Care Team (Late st Contact Info) Description 08/11/2020 Transcribed Document [facility] [place] [facility] [place] [address] ProviderJason MD [address] [place] [address] Social History Tobacco Use Types Packs/Day Years Used Date Smoking Tobacco: Never Assessed Comments Unknown Sex and Gender Information Value Date Recorded Sex Assigned at Not on file Legal Sex Female 3:15 PM CDT Gender Identity Not on file Sexual Orientation Not on file documented as of this encounter Miscellaneous Notes * Cerner Conversion Note - Jason Zendejas MD - 08/11/2020 2:02 PM CDT ED Discharge Entered On: 08/11/2020 14:13 EDT Performed On: 08/11/2020 14:02 EDT by RACHAEL QUINTANA, women's ministry director Process Patient Disposition : Discharge Personal Belongings With Patient : Yes Patient Education Completed : Yes Teaching Evaluation : Verbalizes understanding Link to Valuables and Belongings form : No IV Discontinued : Yes Nursing Documentation Completed : Yes RACHAEL QUINTANA, RN - 08/11/2020 14:13 EDT ED Discharge Discharge To : Home with ambulatory/outpatient follow-up Mode Of Departure : Ambulatory Accompanied By : Friend Discharge Instructions Reviewed With, Opportunity For Questions Given : Patient Prescriptions Given to Patient : No RACHAEL QUINTANA, RN - 08/11/2020 14:13 EDT Electronically signed by [facility] Conversion Legal Summer Intern Cerner at 06/09/2022 3:31 PM CDT documented in this encounter Plan of Treatment Not on file documented as of this encounter Visit Diagnoses Not on filedocumented in this encounter Care Teams Project Analyst Relationship Specialty Start Date End Date Jayden Rowan MD [address] [place] [phone] PCP - General General Internal Medicine 07/05/22 documented as of this encounter
--- OUTSIDE RECORDS SUMMARY | 2024-07-29 15:58 | XMS_ITS | Encounter Summary ---
Author Organization [employer] Address [address] [place] [address] Care Team Providers Care [employer] Sales Name Role Phone Leanna Rivera MD Primary Care Provider [phone] Encounter Details Date Type Department Care Team (Late st Contact Info) Description 10/02/2020 Transcribed Document [facility] [place] [address] ProviderJason MD [address] [place] [id number] Social History Tobacco Use Types Packs/Day Years Used Date Smoking Tobacco: Never Assessed Comments Unknown Sex and Gender Information Value Date Recorded Sex Assigned at Not on file Legal Sex Female 3:15 PM CDT Gender Identity Not on file Sexual Orientation Not on file documented as of this encounter Miscellaneous Notes * Cerner Conversion Note - Jason Zendejas MD - 10/02/2020 12:11 PM CDT [facility] [address] [place] [address] CECILE RAMIREZ DARREN :1955 Visit Time:10/02/2020 Your Visit Summary Your Care Team Primary Provider: RIAN JORGENSEN Secondary Provider: Your Diagnosis Headache Migraine Medical [...] When Within 2 to 3 days Where: [address] [place] [address] [address] [place] [address] Business (1) Allergies HYDROmorphone Imitrex Maxalt Zofran [...] This Visit (last charted value for your 10/02/2020 visit) No Laboratory or Other Results This [...] these instructions at home: Medicines ??? Take [id number] and prescription medicines only as told by your health care provider. ??? Ask your health care provider if the medicine prescribed to you: ? Requires you to avoid driving or using heavy machinery. ? Can cause constipation. You may need to take these actions to prevent or treat constipation: ? Drink enough fluid to keep your urine pale yellow. ? Take fpdv-iwt-mxaakoa or prescription medicines. ? Eat foods that [...] provider. Document Revised: 05/31/2019 Document Reviewed: 03/21/2019 [employer] Patient Education ?? 2020 [employer]. Emergency Awareness and Preventative Care STROKE is [...] Assistance with quitting is available by contacting 7-586-ASHX-NOW. This is a free resource providing counseling, [...] was given the opportunity to ask questions. Patient/Electric Motor Winders Assembler Name: Patient/Electric Motor Winders Assembler Signature: Relationship to Patient: Clinician/Hospital Electric [employer] Winders Assembler Signature: Please Provide a Telephone Number Where You Can Be Reached: Is it Permissible To Leave a Message? Date: documented in this encounter Plan of Treatment Not on file documented as of this encounter Visit Diagnoses Not on filedocumented in this encounter Care Teams Life Insurance Sales Relationship Specialty Start Date End Date Leanna Rivera MD [address] [place] [address] [place] [address] PCP - General General Internal Medicine 07/05/22 documented as of this encounter
--- OUTSIDE RECORDS SUMMARY | 2024-07-29 15:58 | XMS_ITS | Data Portability ---
Author Organization [facility] JO NealS [place] CLOSED Address [address] [facility] [address] [place] [address] Care Team Providers Care Sales Enablement Analyst Name Role Phone LEANNA DAVIDSON Neurologist [phone] LILIANA LUNDBERG Orthopedic Surgeon AGUSTO VALVERDE Phys. Med. & Rehab [phone] Assessment Encounter Date Assessment Date Assessment LastModified by Organization Details LastModified Time 02/16/2023 02/16/2023 X-rays were reviewed, independently assessed, and discussed with the patient in the office today. Imaging reveals healing of her previous extra-articular distal radius fracture. Discussed that her current wrist pain seems to be most likely due to de Quervain's tenosynovitis as a result of her recent injury. Treatment options discussed with recommendation for conservative management. I provided her with a de Quervain's brace as well as a corticosteroid injection in the office today without complication. 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 Plan to obtain an EMG/NCV study for more definitive diagnostic assessment. Advised her to resume wearing her wrist splint at night to help with nocturnal symptoms. [email or web address] Not available 02/16/2023 13:19:11 Plan of Treatment Reminders Order Date Submit Date Provider Last Modified By Organization Details Last Modified Time Details Appointments None recorded. Lab hemoglobin A1C, fingerstick 2022 023 [facility], [address] [place] [address], [address], 11:25:24 microalbumi n/creatinin e, mass ratio, urine 2022 023 [facility], [address] [place], [address], 3 15:20:19 glycohemogl obin, total, blood 2022 023 [facility], [address] [place], [address], 3 15:05:36 lipid panel, serum 2022 023 [facility], [facility] [place], [address], 3 15:24:16 CMP, serum or plasma 2022 023 [facility], [address] [place], [address], 3 15:24:14 CBC w/ auto diff 2022 023 [facility], [address] [place], [address], 3 16:57:00 TSH, serum or plasma 2022 023 [facility], [address] [place] [address], [address], 3 15:10:59 Referral None recorded. Procedures nerve conduction study/EMG, upper extremity (PROC) - Right upper extremity evaluation for carpal tunnel syndrome, rule out other compressive neuropathy and radiculopat hy. Bilateral upper extremity comparison. 2022 [email or web address] [facility] Professional Charges, [facility], [facility] [address], [place], [address], 3 10:28:48 Surgeries None recorded. Imaging CT, wrist, w/o contrast 2022 023 [email or web address] Not available 3 08:23:13 US, duplex, arterial, lower extremity, complete 2022 023 [email or web address] 184 [facility] (Centralized Scheduling), [address], [place], [address], 3 13:57:02 Medication Orders clonazepam 1 mg tablet 2022 023 [facility], [address], [place], [address], 3 11:01:12 Patient TargetsNo targets recorded. Patient Instructions Encounter Date Encounter Id Patient Instructions Last Modified By Organization Details Last Modified Time 02/16/2023 [id number] DeQuervain's Tendonitis-LC bdevers Not available 02/16/2023 13:20:53 Reason for Referral None Reported. Results Created Date Observation Date Name Description Value Unit Range Abnormal Flag Note LastModifiedBy Organization Detail LastModifiedTime 10/22/1910/21/2022 GLYCO HEMOG LOBIN A1C glyco HGB A1C 6.6 % 0.0-5. 6 high Not Available [facility] [place], [address], 10/21/2022 15:05:36 10/22/19 23 10/21/2022 GLYCO HEMOG LOBIN A1C estimated avg. glucose 143 mg/dL _(opal c) normal A1c value s betwe en 5.7% to 6.4% indic ate predi abete s. Resul ts 6.5% or great er is diagn ostic of diabe herbert. [facility]i can [facility] herbert [facility] i[facility] n (diab etes. org) Not Available [facility] [address] [place], [address], 10/21/2022 15:05:36 10/22/19 23 10/21/2022 TSH TSH 2.230 u[IU] /mL 0.270- 4.200 normal Not Available [facility] [address] [place], [address], 10/21/2022 15:10:59 10/22/19 23 10/21/2022 MICRO ALBUM IN/CR EAT RATIO microalbumin , random <12 mg/L 0-19 normal Not Available [facility] [address] [place] [address], [address], 10/21/2022 15:20:19 10/22/19 23 10/21/2022 MICRO ALBUM IN/CR EAT RATIO creatinine,u r,random 100 mg/dL normal NO DEBO L RANGE ESTAB LISHE D FOR RANDO M URINE . Not Available [facility] [address] [place] [address], [address], 10/21/2022 15:20:19 10/22/19 23 10/21/2022 MICRO ALBUM IN/CR EAT RATIO MA/creatinin e ratio see below mcg/m g_cre at 0-29 normal Unabl e to calcu late micro album in/cr eatin ine ratio . Not Available [facility] [address] [place] [address], [address], 10/21/2022 15:20:19 10/22/19 23 10/21/2022 COMP. METAB OLIC PANEL glucose 94 mg/dL 74-100 normal Not Available [facility] [address] [place] [address], [address], 10/21/2022 15:24:13 10/22/19 23 10/21/2022 COMP. METAB OLIC PANEL blood urea nitrogen 5 mg/dL 6-20 low Not Available [facility] [address] [place], [address], 10/21/2022 15:24:13 10/22/19 23 10/21/2022 COMP. METAB OLIC PANEL creatinine 0.73 mg/dL 0.50-0 .95 normal Not Available [facility] [address] [place] [address], [address], 10/21/2022 15:24:13 10/22/19 23 10/21/2022 COMP. METAB OLIC PANEL BUN/creatini ne ratio 7 (calc ) 10-20 low Not Available [facility] [address] [place] [address], [address], 10/21/2022 15:24:13 10/22/19 23 10/21/2022 COMP. METAB OLIC PANEL sodium 141 mmol/ L 136-14 5 normal Not Available [facility] [address] [place] [address], [address], 10/21/2022 15:24:13 10/22/19 23 10/21/2022 COMP. METAB OLIC PANEL potassium 3.8 mmol/ L 3.4-5. 0 normal Not Available [facility] [address] [place] [address], [address], 10/21/2022 15:24:13 10/22/19 23 10/21/2022 COMP. METAB OLIC PANEL chloride 106 mmol/ L 98-107 normal Not Available [facility] [address] [place] [address], [address], 10/21/2022 15:24:13 10/22/19 23 10/21/2022 COMP. METAB OLIC PANEL carbon dioxide 25 mmol/ L 22-31 normal Not Available [facility] [address] [place] [address], [address], 10/21/2022 15:24:13 10/22/19 23 10/21/2022 COMP. METAB OLIC PANEL anion gap 10 (calc ) 7-25 normal Not Available [facility] [address] [place] [address], [address], 10/21/2022 15:24:13 10/22/19 23 10/21/2022 COMP. METAB OLIC PANEL calcium 9.7 mg/dL 8.6-10 .2 normal Not Available [facility] [address] [place] [address], [address], 10/21/2022 15:24:13 10/22/19 23 10/21/2022 COMP. METAB OLIC PANEL total protein 8.0 g/dL 6.4-8. 3 normal Not Available [facility] [address] [place] [address], [address], 10/21/2022 15:24:13 10/22/19 23 10/21/2022 COMP. METAB OLIC PANEL albumin 4.5 g/dL 3.5-5. 2 normal Not Available [facility] [address] [place] [address], [address], 10/21/2022 15:24:13 10/22/19 23 10/21/2022 COMP. METAB OLIC PANEL globulin 3.5 1.5-4. 5 normal Not Available [facility] [address] [place] [address], [address], 10/21/2022 15:24:13 10/22/19 23 10/21/2022 COMP. METAB OLIC PANEL albumin/glob ulin ratio 1.3 (calc ) 1.1-2. 5 normal Not Available [facility] [address] [place] [address], [address], 10/21/2022 15:24:13 10/22/19 23 10/21/2022 COMP. METAB OLIC PANEL bilirubin, total 0.2 mg/dL 0.1-1. 2 normal Not Available [facility] [address] [place] [address], [address], 10/21/2022 15:24:13 10/22/19 23 10/21/2022 COMP. METAB OLIC PANEL alkaline phosphatase 71 U/L 30-121 normal Not Available [facility] [address] [place] [address], [address], 10/21/2022 15:24:13 10/22/19 23 10/21/2022 COMP. METAB OLIC PANEL AST 21 U/L 0-32 normal Not Available [facility] [address] [place] [address], [address], 10/21/2022 15:24:13 10/22/19 23 10/21/2022 COMP. METAB OLIC PANEL ALT 22 U/L 0-33 normal Not Available [facility] [address] [place], [address], 10/21/2022 15:24:13 10/22/19 23 10/21/2022 COMP. METAB OLIC PANEL GFR 91 >= 60 normal NOT E New calcu latio n for GFR (CKD- EPI 2020) is formu lated witho ut race adjus tment facto rs at the recom menda tion of the Alyse sawant and Carlos Quintanilla ty of Nephr ology . This calcu latio n has not been valid ated in pregn ant women . For pedia tric patie nts refer to https ://kimberly watkins.shelby alcantara.kayleigh rg/pr bette camarena s/KDO QI/gf r_cal culat orPed Not Available [facility] [address] [place] [address], [address], 10/21/2022 15:24:13 10/22/19 23 10/21/2022 LIPID PROFI LE HDL cholesterol 40 mg/dL 50-242 low Not Available [facility] [address] [place], [address], 10/21/2022 15:24:15 10/22/19 23 10/21/2022 LIPID PROFI LE triglyceride s 257 mg/dL 0-149 high TRIGL YCERI DE RANGE S DEBO L: < 150 BORDE RLINE HIGH: 150 - 199 HIGH: 200 - 499 VERY HIGH: > OR = 500 Not Available [facility] [address] [place], [address], 10/21/2022 15:24:15 10/22/19 23 10/21/2022 LIPID PROFI LE cholesterol 170 mg/dL 0-199 normal YO STERO L (TOTA L) RANGE S KAILEY ABLE: < 200 BORDE RLINE : 200 - 239 HIGHE R RISK: > 239 Not Available [facility] [address] [place] [address], [address], 10/21/2022 15:24:15 10/22/19 23 10/21/2022 LIPID PROFI LE LDL cholesterol 79 mg/dL _(opal c) 0-99 normal LDL YO STERO L RANGE S OPTIM AL: < 100 NEAR/ ABOVE OPTIM AL: 100 - 129 BORDE RLINE HIGH: 130 - 159 HIGH: 160 - 189 VERY HIGH: > OR = 190 Not Available [facility] [address] [place] [address], [address], 10/21/2022 15:24:15 10/22/1910/21/2022 COMPL ETE BLOOD COUNT white blood cells 9.0 10*3/ uL 3.8-10 .8 normal Not Available [facility] [address] [place] [address], [address], 10/21/2022 16:56:59 10/22/19 23 10/21/2022 COMPL ETE BLOOD COUNT red blood cells 5.44 10*6/ uL 3.80-5 .20 high Not Available [facility] [address] [place] [address], [address], 10/21/2022 16:56:59 10/22/19 23 10/21/2022 COMPL ETE BLOOD COUNT hemoglobin 13.5 g/dL 12.0-1 6.0 normal Not Available [facility] [address] [place] [address], [address], 10/21/2022 16:56:59 10/22/1910/21/2022 COMPL ETE BLOOD COUNT hematocrit 42.1 % 35.0-4 7.0 normal Not Available [facility] [address] [place] [address], [address], 10/21/2022 16:56:59 10/22/19 23 10/21/2022 COMPL ETE BLOOD COUNT MCV 77 fL 80-100 low Not Available [facility] [address] [place] [address], [address], 10/21/2022 16:56:59 10/22/19 23 10/21/2022 COMPL ETE BLOOD COUNT MCH 25 pg 26-35 low Not Available [facility] [address] [place] [address], [address], 10/21/2022 16:56:59 10/22/19 23 10/21/2022 COMPL ETE BLOOD COUNT MCHC 32 g/dL 32-36 normal Not Available [facility] [address] [place] [address], [address], 10/21/2022 16:56:59 10/22/19 23 10/21/2022 COMPL ETE BLOOD COUNT RDW 16.2 % 11.0-1 5.0 high Not Available [facility] [address] [place] [address], [address], 10/21/2022 16:56:59 10/22/19 23 10/21/2022 COMPL ETE BLOOD COUNT MPV 8.1 fL 6.2-10 .5 normal Not Available [facility] [address] [place] [address], [address], 10/21/2022 16:56:59 10/22/19 23 10/21/2022 COMPL ETE BLOOD COUNT platelet count 258 10*3/ uL 130-40 0 normal Not Available [facility] [address] [place] [address], [address], 10/21/2022 16:56:59 10/22/19 23 10/21/2022 COMPL ETE BLOOD COUNT neutrophil,a bsolute 5.1 10*3/ uL 1.6-8. 4 normal Not Available [facility] [address] [place] [address], [address], 10/21/2022 16:56:59 10/22/19 23 10/21/2022 COMPL ETE BLOOD COUNT lymphocyte,a bsolute 3.0 10*3/ uL 0.4-5. 1 normal Not Available [facility] [address] [place] [address], [address], 10/21/2022 16:56:59 10/22/19 23 10/21/2022 COMPL ETE BLOOD COUNT monocyte,abs olute 0.5 10*3/ uL 0.0-1. 2 normal Not Available [facility] [address] [place] [address], [address], 10/21/2022 16:56:59 10/22/19 23 10/21/2022 COMPL ETE BLOOD COUNT eosinophil,a bsolute 0.4 10*3/ uL 0.0-0. 8 normal Not Available [facility] [address] [place] [address], [address], 10/21/2022 16:56:59 10/22/19 23 10/21/2022 COMPL ETE BLOOD COUNT basophil,abs olute 0.1 10*3/ uL 0.0-0. 3 normal Smear revie wed to confi rm cell morph ology . Not Available [facility] [address] [place] [address], [address], 10/21/2022 16:56:59 10/22/19 23 10/21/2022 COMPL ETE BLOOD COUNT % neutrophils 56.6 % 42.0-7 8.0 normal Not Available [facility] [address] [place] [address], [address], 10/21/2022 16:56:59 10/22/19 23 10/21/2022 COMPL ETE BLOOD COUNT % lymphocytes 33.1 % 11.0-4 7.0 normal Not Available [facility] [address] [place] [address], [address], 10/21/2022 16:56:59 10/22/19 23 10/21/2022 COMPL ETE BLOOD COUNT % monocytes 5.4 % 0.0-11 .0 normal Not Available [facility] [address] [place] [address], [address], 10/21/2022 16:56:59 10/22/19 23 10/21/2022 COMPL ETE BLOOD COUNT % eosinophils 4.1 % 0.0-7. 0 normal Not Available [facility] [address] [place] [address], [address], 10/21/2022 16:56:59 10/22/19 23 10/21/2022 COMPL ETE BLOOD COUNT % basophils 0.8 % 0.0-3. 0 normal Not Available [facility] [address] [place] [address], [address], 10/21/2022 16:56:59 10/22/19 23 10/21/2022 COMPL ETE BLOOD COUNT nucleated red cells 0.0 % 0.0-0. 9 normal Not Available [facility] [address] [place] [address], [address], 10/21/2022 16:56:59 10/22/19 23 10/21/2022 COMPL ETE BLOOD COUNT nucleated RBCs, absolute 0.00 10*3/ uL not estab. normal Not Available [facility] [address] [place] [address], [address], 10/21/2022 16:56:59 10/22/19 23 10/21/2022 MORPH OLOGY microcytosis SLIGHT abnormal Not Available [facility] [address] [place] [address], [address], 10/21/2022 16:57:02 10/22/19 23 10/21/2022 MORPH OLOGY hypochromasi a SLIGHT abnormal Not Available [facility] [address] [place] [address], [address], 10/21/2022 16:57:02 10/22/19 23 10/21/2022 MORPH OLOGY ovalocytes SLIGHT abnormal Not Available [facility] [address] [place] [address], [address], 10/21/2022 16:57:02 10/22/19 23 10/21/2022 hemog nikolay Valera hemoglobin A1C % 6.4 % 4.0 - 5.6 Not Available [address], [address], 10/21/2022 10:31:27 10/07/19 23 10/06/2022 XR, wrist + hand [facility] [address] [facility] [place] [address] Ginbjorn zepeda Name: CECILE zepeda : 1954 Shelley zepeda 0 Orderi ng Provid er: CHUNG Marie EXAM DATE: 2022 EXAM: XR RT HAND AND WRIST COMPLE TE HISTOR Y: Hand and wrist pain COMPAR LELA: None. FINDIN GS: Modera te degene rative change s of the first carpom etacar pal joint. Mild scatte red degene rative change s elsewh ere includ ing the DIP joints . There is a mildly displa renato transv erse fractu re of the distal right radial metaph ysis. Mild dorsal impact ion. Likely subtle ulnar styloi d fractu re IMPRES TREY: 1. Mildly displa renato fractu re of the distal radius with possib le fractu re of the tip of the ulnar styloi d 2. Degene rative change of the hand Interp reted By: Heber Neumann MD Electr onical ly Signed By: Heber Neumann MD on 023 12:26 PM [email or web address] [facility] [address] [place] [address], [address], 10/07/2022 08:35:58 10/07/19 23 10/06/2022 XR, elbow , 3 or more view [facility] [address] [facility] [place] [address] Shelley zepeda Name: CECILE zepeda : 1954 Shelley zepeda 0 Orderi ng Provid er: CHUNG Marie EXAM DATE: 2022 EXAM: XR RT ELBOW COMPLE TE HISTOR Y: Elbow pain COMPAR ELLA: None. FINDIN GS: Normal alignm ent. No fractu re or disloc ation is visual ized. Mild degene rative change s. IMPRES TREY: 1. No acute bony findin g Interp reted By: Heber Neumann MD Electr onical ly Signed By: Heber Neumann MD on 023 1:39 PM [email or web address] [facility] [address] [place], [address], 10/06/2022 13:57:41 10/21/19 23 10/20/2022 XR, wrist , 2 view [facility] [address] [facility] [address] Shelley zepeda Name: CECILE zepeda : 1954 Shelley zepeda 0 Orderi ng Provid er: NATE MCMULLEN EXAM DATE: 2022 EXAM: XR RT WRIST, AP/LAT HISTOR Y: Follow up of fractu re. COMPAR ELLA: 023 FINDIN GS: Again seen is a fractu re of the distal metaph ysis of the right radius . This is unchan ged in alignm ent in compar ella to the prior study. There is dorsal impact ion and mild displa cement . There is a fractu re of the ulnar styloi d. There are mild to modera te diffus e degene rative change s. No other fractu re is seen. IMPRES TREY: 1. There is unchan ged alignm ent of the fractu re of the distal metaph ysis of the right radius . 2. There is a fractu re of the ulnar styloi d. Interp reted By: Jeff aguilera MD Electr onical ly Signed By: Jeff aguilera MD on 023 11:08 AM [email or web address] [facility] [place] [address], [place], [address], 10/20/2022 14:57:19 11/08/19 23 11/07/2022 XR, wrist , 3 or more view [facility] [address] [place] [address] Shelley zepeda Name: CECILE zepeda : 1954 Shelley zepeda 0 Orderi ng Provid er: [facility] EXAM DATE: 2022 EXAM: XR RT WRIST COMPLE TE HISTOR Y: Follow up of fractu re. COMPAR ELLA: 023 FINDIN GS: Again seen is a fractu re of the distal metaph ysis of the right radius . This is unchan ged in alignm ent in compar ella to the prior study. There is mild to modera te dorsal displa cement . There is a fractu re of the ulnar styloi d. No other fractu re is seen. IMPRES TREY: 1. There is unchan ged alignm ent of the fractu re of the distal metaph ysis of the right radius . 2. There is a fractu re of the ulnar styloi d. Interp reted By: Jeff aguilera MD Electr onical ly Signed By: Jeff aguilera MD on 11:39 AM [email or web address] [facility] [place] [address], [place], [address], 11/07/2022 15:43:11 12/02/19 23 12/01/2022 XR, wrist , 3 or more view [place] [facility] [address] [place] [address] Shelley t Name: CECILE zepeda : 1954 Shelley zepeda 0 Orderi ng Provid er: [facility] EXAM DATE: 2022 EXAM: XR RT WRIST COMPLE TE HISTOR Y: Follow up of fractu re. COMPAR ELLA: 023 FINDIN GS: Again seen is a fractu re of the distal metaph ysis of the right radius . This is unchan ged in alignm ent in compar ella to the prior study. There is dorsal impact ion and mild to modera te dorsal displa cement . There is a fractu re of the tip of the ulnar styloi d. No other fractu re is seen. There are mild to modera te diffus e degene rative change s. The bones are osteop enic. IMPRES TREY: 1. There is unchan ged alignm ent of the fractu re of the distal metaph ysis of the right radius . 2. There is a fractu re of the ulnar styloi d. Interp reted By: Jeff aguilera MD Electr onical ly Signed By: Jeff aguilera MD on 2022 10:06 AM [facility] [place] [address] , [place], [address], 12/14/2022 13:47:50 12/15/19 23 12/14/2022 CT, wrist , w/o contr ast [place] [facility] [address] [place] [address] Patibjorn zepeda Name: CECILE zepeda : 1954 Shelley zepeda 0 Orderi ng Provid er: BEAN FISCHER EXAM DATE: 2022 EXAM: CT RT WRIST W/O CONTRA ST HISTOR Y: 67-yea r-old female for evalua tion of a fractu re. COMPAR ELLA: 2022 TECHNI QUE: 0.67 mm axial helica l acquis itions throug h the right wrist with 3 mm axial recons tructi on images and comput er genera gokul sagitt al and greer l recons tructi ons. FINDIN GS: There is a fractu re of the distal metaph ysis of the left radius . There is dorsal impact ion with mild dorsal tilt of the radioc arpal joint. There is modera te focal displa cement along the dorsal cortex of the radius . No intra- articu lar extens ion is identi fied. There is a fractu re of the ulnar styloi d. The carpal bones are normal in alignm ent. No fractu re is identi fied. There are mild to modera te degene rative change s at the first carpom etacar pal joint and trisca phe joint. There are mild degene rative change s in the radioc arpal joint. The bones are diffus baldomero osteop enic. The flexor and extens or tendon s of the wrist are intact . There is no tendon transe ction. The muscle s of the wrist appear normal . There is mild subcut aneous edema. IMPRES TREY: 1. There is an old or late subacu te fractu re of the distal metaph ysis of the right radius . 2. There is a possib le acute fractu re of the ulnar styloi d. Interp reted By: Jeff aguilera MD Electr onical ly Signed By: Jeff aguilera MD on 2022 11:28 AM [email or web address] [facility] [address] [place], [address], 12/14/2022 13:47:50 02/17/20 23 02/16/2023 XR, wrist , 2 view [place] [facility] [address] [place] [address] Shelley zepeda Name: CECILE zepeda : 1954 Shelley zepeda 0 Orderi ng Provid er: BRYANT LUNDBERG EXAM DATE: 2022 EXAM: XR RT WRIST, AP/LAT HISTOR Y: Follow up of fractu re. COMPAR ELLA: CT dated 2022 FINDIN GS: Again seen is a fractu re of the distal metaph ysis of the right radius . This is unchan ged in alignm ent in compar ella to the prior study. There is dorsal impact ion and mild displa cement . This fractu re appear s healed . There are mild to modera te degene rative change s. No other fractu re is seen. IMPRES TREY: 1. There is unchan ged alignm ent and appare nt healin g of the fractu re of the distal metaph ysis of the right radius . Interp reted By: Jeff aguilera MD Electr onical ly Signed By: Jeff aguilera MD on 2022 12:43 PM [email or web address] [facility] [place] [address], [place], [address], 02/16/2023 13:49:48 Result Notes None recorded. Problems Name Problem SNOMED Code Status Onset Date Resolution Date Notes Provider Name and Address Organization Details Recorded Time Recurren t major depressi on 46213042 Active 2016 FREDIS HERNANDEZ MD [address] [place], [address], [facility] 3 10:12:43 Posttrau matic stress disorder 94343065 Active 2016 FREDIS HERNANDEZ MD [address] [place], [address], [facility] 3 10:12:47 Chronic obstruct florecita pulmonar y disease 94284551 Active 2016 FELIPE GRIFFITH PA-C [address] [place], [address], [facility] [facility] 3 14:14:26 Overwe[place] ht [id number] Completed 201608/18/2022 FREDIS HERNANDEZ MD [address] [place], [address], [facility] 3 10:12:56 Type 2 diabetes mellitus without complica tion [id number] Active 2016 FELIPE GRIFFITH PA-C [address] [place], [address], [facility] 3 14:14:50 Primary insomnia 5574231 Active 2016 FREDIS HERNANDEZ MD [address] [facility], [address], [facility] 3 10:12:45 Restless legs [id number] Active 2016 FELIPE GRIFFITH PA-C [address] [place], [address], [facility] 3 14:16:15 Screenin g for malignan t neoplasm of breast Active 2016 FREDIS HERNANDEZ MD [address] [place], [address], [facility] 3 10:12:41 Gastro-e sophagea l reflux disease with esophagi tis [id number] Active 2016 EGD: 04/06/17 ; Gastriti s, Esophagi tis, No Dysplasi a FELIPE GRIFFITH PA-C [address] [place], [address], [facility] 3 14:14:41 Screenin g for malignan t neoplasm of colon Active 2017 COLONOSC OPY: 04/06/19 18; 1 Plyp; 5 Yr Rpt DUE: 04/07/22 FREDIS HERNANDEZ MD [address] [place], [address], [facility] 3 10:12:40 History of migraine [id number] Active 2022 FELIPE GRIFFITH PA-C [address] [place], [address], [facility] 3 14:16:24 Hyperten sive disorder 77319417 Active 2022 FELIPE GRIFFITH PA-C [address] [place], [address], [facility] 3 14:16:32 Generali zed anxiety disorder 48713445 Active 2022 FREDIS HERNANDEZ MD [address] [place], [address], [facility] 3 10:13:08 Chest pain [id number] Completed 201406/14/2022 FELIPE GRIFFITH PA-C [address] [place], [address], [facility] 3 14:14:34 Familial combined hyperlip idemia 469294995 Active 2015 FELIPE GRIFFITH PA-C [address] [place], [address], [facility] 3 14:14:37 Problem Notes None recorded. Procedures Surgical History Date Name Laterality Status Provider Name and Address Organization Details Recorded Time 023 Injection Tendon Sheath/Ligament completed LILIANA LUNDBERG MD [address] [place] [address], [phone], [facility] 02/16/2023 13:20:02 023 Orthotic, WHO, Static Custom completed LUCIO YU JR, OTR/L, CHT [address] [place] [address], [phone], [facility] 10/20/2022 13:39:10 023 PAF Exam completed So Mejia [facility] 06/09/2022 10:54:01 022 Preparation Antigens completed May [facility] 11/04/2021 10:05:45 022 PAF Exam completed LEANNA RIVERA MD [address] [place] [address], [phone], [facility] 07/07/2021 09:15:40 022 PAF Exam completed Laura Teague [facility] 05/27/2021 11:12:47 022 Preparation Antigens completed Yamileth Alyson [facility] 05/11/2021 15:39:21 022 IV Hydration completed [facility] 04/21/2021 14:47:36 021 Preparation Antigens completed May [facility] 10/28/2020 12:20:05 020 Allergy Skin Test - Food completed GLENNY MAHAN MD [address] [place], [address], [facility] 07/22/2019 14:17:40 020 Allergy Skin Test - Enviromental completed GLENNY MAHAN MD [address] [place], [address], [facility] 07/22/2019 14:17:22 019 DXA Normal completed MADDIE FELICIANO MD [address] [place], [address], [facility] 08/17/2018 11:21:33 019 Cervical Medial Branch Blocks completed TAYLOR BERG MD [facility] [place], [address], [facility] 04/19/2018 13:04:47 019 Cervical Medial Branch Blocks completed TAYLOR BERG MD [address] [place] [address], [address], [facility] 04/18/2018 07:35:48 017 Post Void Residual; Catheter completed Brina Colby [facility] 02/02/2017 17:08:48 017 Tympanogram completed DA FUENTES, AUD [address] [place], [address], [facility] 07/07/2016 16:00:27 017 Audiogram completed DA FUENTES, AUD [address] [place], [address], [facility] 07/07/2016 16:00:25 017 Audiogram completed Kristal Stevenson [facility] 07/07/2016 16:03:44 Appendectomy completed [facility] 07/07/2016 15:31:55 Other completed [facility] 07/07/2016 15:16:25 Cholecystectomy w/cholang completed [facility] 07/07/2016 15:32:39 Hysterectomy/bladd er repair completed [facility] 07/07/2016 15:32:16 Hernia repair w/mesh completed [facility] 07/07/2016 15:32:29 Unlisted px neck/thorax completed [facility] 07/07/2016 15:32:55 Imaging Results None recorded. Procedure Notes None recorded. Medical Equipment None Reported. Allergies Allergen ID Allergen Name Allergen Category Reaction Reaction Severity Criticality Documentation Date Start Date Code Code System Note Provider Name and Address Organization Details Recorded Time 199218 Dilaudid medicatio n Not available Not available Not available 01/14/20162011 33788 3 RxNorm Comme nt: Creat ed By: Javid gavin;Cre ated Date: 2011 2:13: 30 PM; Not Available [facility] 6 10:54:28 [id number] codeine phosphate medicatio n Not available Not available Not available 01/14/20162011 2672 RxNorm Comme nt: Creat ed By: Javid gavin;Cre ated Date: 2011 2:12: 16 PM; Not Available [facility] 6 10:54:28 [id number] morphine sulfate medicatio n Not available Not available Not available 01/14/20162011 06892 RxNorm Comme nt: Creat ed By: Javid gavin;Cre ated Date: 2011 2:12: 32 PM; Not Available [facility] 6 10:54:28 [id number] hydrocodo ne bitartrat e medicatio n Not available Not available Not available 01/14/20162011 33633 9 RxNorm Comme nt: Creat ed By: Javid gavin;Cre ated Date: 2011 2:12: 47 PM; Not Available [facility] 6 12:56:47 [id number] Zofran medicatio n Not available Not available Not available 07/07/2016 67307 RxNorm [facility] 7 15:30:37 [id number] methocarb shawna medicatio n vomiting Not available Not available 07/09/20212021 6845 RxNorm [facility] 2 15:42:02 Medications Name Sig Start Date Stop Date Status Note LastModified by Organization Details LastModified Time ibuprofen 200mg 07/23 completed Not Available Not Available Not Available topical analgesic cream caps active Not Available Not Available Not Available aspirin low dose 81mg ec 01/26 completed Not Available Not Available Not Available roll-on muscle relief 06/17 completed Not Available Not Available Not Available levocetir izine 07/23 completed Not Available Not Available Not Available plastic bandages - 200 count 05/14 completed Not Available Not Available Not Available oral pain relief benzocain e 20 03/06 completed Not Available Not Available Not Available knee support xl 05/14 completed Not Available Not Available Not Available oatmeal bath treatment 07/23 completed Not Available Not Available Not Available generic cough suppressa nt dm ( 04/27 completed Not Available Not Available Not Available vitamin a and d ointment 4 oz. 12/27 completed Not Available Not Available Not Available effervesc ent denture tabs - 90 03/06 completed Not Available Not Available Not Available adhesive bandages waterproo f 05/14 completed Not Available Not Available Not Available lidocaine patch 07/23 completed Not Available Not Available Not Available headache formula aspirin/a ce 03/06 completed Not Available Not Available Not Available vitamin b-complex 5000mg subli 05/14 completed Not Available Not Available Not Available Prescript ion - Prior Authoriza tion Request 03/04 completed Not Available Not Available Not Available allergy cream itch and pain 07/23 completed Not Available Not Available Not Available stop smoking gum 4mg 03/06 completed Not Available Not Available Not Available cetirizin e hcl 10mg 01/05 completed Not Available Not Available Not Available diabetic skin relief 03/06 completed Not Available Not Available Not Available triple antibioti c ointment plu 05/14 completed Not Available Not Available Not Available tetracycl ine 500 mg capsule 06/17 completed Not Available Not Available Not Available BD Luer-Oknrad Syringe 3 mL 23 x 1 USE DIRECTED ONCE WEEKLY FOR B12 INJECTIO NS active Not Available Not Available No t Available cyclobenz aprine 10 mg tablet Take 1 tablet 3 times a day by oral route for 10 days. 03/02 completed Not Available Not Available Not Available butorphan ol 10 mg/mL nasal spray 07/28 completed Not Available Not Available Not Available methocarb shawna 500 mg tablet TAKE 2 TABLETS BY MOUTH THREE TIMES DAILY NEEDED FOR BACK OR NECK SPASMS 03/30 completed Not Available Not Available Not Available silver sulfadiaz ine 1 % topical cream APPLY A 1/16 THICK LAYER TO ENTIRE BURN AREA TWICE DAILY 06/17 completed Not Available Not Available Not Available metformin 500 mg tablet 07/07 completed Not Available Not Available Not Available bupropion HCl SR 150 mg tablet,12 hr sustained -release TAKE 1 TABLET BY MOUTH TWICE DAILY active Not Available Not Available No t Available promethaz ine-DM 6.25 mg-15 mg/5 mL oral syrup Take 5 mL every 6 hours by oral route for 10 days. 06/20 completed Not Available Not Available Not Available atorvasta tin 80 mg tablet TAKE 1 TABLET AT BEDTIME active Not Available Not Available No t Available doxycycli ne hyclate 100 mg capsule TAKE 1 CAPSULE BY MOUTH TWICE DAILY FOR 7 DAYS active Not Available Not Available No t Available ropinirol e 1 mg tablet TAKE 1 TABLET BY MOUTH TWICE DAILY 05/21 completed dose change Not Available Not Available Not Available ipratropi um 0.5 mg-albute rol 3 mg (2.5 mg base)/3 mL nebulizat ion soln USE 3 ML VIA NEBULIZE R FOUR TIMES DAILY NEEDED active Not Available Not Available No t Available dihydroer gotamine 0.5 mg/pump act. (4 mg/mL) nasal spray 1 spray each nostril every 15mins, max 4 actuatio ns/attac k, 6 actuatio ns/day, 8 actuatio ns/wk 06/12 completed Not Available Not Available Not Available tizanidin e 2 mg tablet TAKE 1 TABLET BY MOUTH EVERY NIGHT AT BEDTIME NEEDED FOR NECK PAIN active Not Available Not Available No t Available clindamyc in HCl 300 mg capsule TAKE 1 CAPSULE BY MOUTH FOUR TIMES DAILY FOR 10 DAYS 06/17 completed Not Available Not Available Not Available Carafate 1 gram tablet Take 1 tablet 4 times a day by oral route for 30 days. 03/02 completed Not Available Not Available Not Available triamcino lone acetonide 0.5 % topical cream APPLY TOPICALL Y TO THE AFFECTED AREA TWICE DAILY active Not Available Not Available No t Available cetirizin e 10 mg tablet Take 1 tablet every day by oral route for 90 days. 03/30 completed Not Available Not Available Not Available azithromy rich 250 mg tablet TAKE 2 TABLETS (500 MG) BY ORAL ROUTE ONCE DAILY FOR 1 DAY THEN 1 TABLET (250 MG) BY ORAL ROUTE ONCE DAILY FOR 4 DAYS 11/07 completed Not Available Not Available Not Available alprazola m 1 mg tablet 12/27 completed Not Available Not Available Not Available tizanidin e 4 mg tablet TAKE 1 TABLET BY MOUTH TWICE DAILY active Not Available Not Available No t Available fluconazo le 150 mg tablet TAKE 1 TABLET BY MOUTH NOW AND 1 TABLET IN 4 DAYS 07/26 completed Not Available Not Available Not Available valacyclo vir 1 gram tablet Take 1 tablet every 12 hours by oral route for 7 days. 01/22 completed Not Available Not Available Not Available sumatript an 100 mg tablet THIS IS NOT ON OUR MED LIST,,,, , SHE IS NOT ON IT active Not Available Not Available No t Available diclofena c ER 100 mg tablet,ex tended release 24 hr TAKE 1 TABLET EVERY DAY FOR 10 DAYS 09/07 completed Not Available Not Available Not Available hydrocodo ne 5 mg-acetam inophen 325 mg tablet Take 1 tablet every 6 hours by oral route as needed for 3 days. 08/19 completed Not Available Not Available Not Available prochlorp erazine maleate 5 mg tablet TAKE 1 TABLET BY MOUTH EVERY 8 HOURS FOR 10 DAYS NEEDED 07/07 completed Not Available Not Available Not Available meloxicam 15 mg tablet TAKE 1 TABLET BY MOUTH EVERY DAY active Not Available Not Available No t Available promethaz ine 12.5 mg tablet TAKE 1 TABLET BY MOUTH THREE TIMES DAILY NEEDED FOR NAUSEA OR VOMITING 06/17 completed Not Available Not Available Not Available prednison e 20 mg tablet TAKE 1 TABLET BY MOUTH ONCE DAILY IN THE MORNING WITH FOOD FOR 7 DAYS active Not Available Not Available No t Available ropinirol e 3 mg tablet TAKE 1 TABLET BY MOUTH DAILY active Not Available Not Available No t Available rizatript an 10 mg tablet 01/24 completed Not Available Not Available Not Available sertralin e 100 mg tablet TAKE 2 TABLETS EVERY DAY active Not Available Not Available No t Available metronida zole 250 mg tablet 01/24 completed Not Available Not Available Not Available clonazepa m 1 mg tablet TAKE 1 TABLET BY MOUTH TWICE DAILY NEEDED FOR ANXIETY active Not Available Not Available No t Available Pyridium 200 mg tablet Take 1 tablet 3 times a day by oral route. 03/27 completed Not Available Not Available Not Available Accu-Chek Softclix Lancets USE DIRECTED active Not Available Not Available No t Available prochlorp erazine maleate 10 mg tablet 01/05 completed Not Available Not Available Not Available sulfameth oxazole 800 mg-trimet hoprim 160 mg tablet TAKE 1 TABLET BY MOUTH EVERY 12 HOURS FOR 7 DAYS 08/18 completed Not Available Not Available Not Available omeprazol e 40 mg capsule,d elayed release 01/24 completed Medicati on Descript ion: omeprazo le; Route:or al; refills: 0 Not Available Not Available Not Available doxycycli ne monohydra te 100 mg tablet 03/30 completed Not Available Not Available Not Available tramadol 50 mg tablet TAKE 1 TABLET BY MOUTH EVERY 8 HOURS NEEDED FOR FRACTURE PAIN active Not Available Not Available No t Available amitripty line 50 mg tablet TAKE 1 TABLET BY MOUTH EVERY DAY active Not Available Not Available No t Available triamcino lone acetonide 0.1 % topical cream APPLY TOPICALL Y TO THE AFFECTED AREA TWICE DAILY NEEDED FOR ITCHING active Not Available Not Available No t Available butalbita l-acetami nophen-ca ffeine 50 mg-325 mg-[address] garcia 07/28 completed Not Available Not Available Not Available ketorolac 10 mg tablet TAKE 1 TABLET BY MOUTH EVERY 8 HOURS FOR 5 DAYS active Not Available Not Available No t Available bethanech ol chloride 25 mg tablet TAKE 1 TABLET BY MOUTH THREE TIMES DAILY 08/18 completed Not Available Not Available Not Available meloxicam 7.5 mg tablet TAKE 1 TABLET TWICE DAILY WITH MEALS active Not Available Not Available No t Available nadolol 20 mg tablet 1/2 per day x one week, then one day 09/26 completed Not Available Not Available Not Available oxycodone -acetamin ophen 5 mg-325 mg tablet TAKE 1 TABLET BY MOUTH DAILY NEEDED. TO LAST 30 DAYS 10/27 completed Not Available Not Available Not Available ceftriaxo ne 1 gram solution for injection Take 1 g by injectio n route. 11/07 completed Not Available Not Available Not Available methenami ne hippurate 1 gram tablet 07/07 completed Not Available Not Available Not Available famotidin e 20 mg tablet TAKE 1 TABLET BY MOUTH TWICE DAILY FOR 10 DAYS active Not Available Not Available No t Available amitripty line 25 mg tablet Take 1 tablet every day by oral route for 90 days. 03/02 completed Not Available Not Available Not Available prednisol one acetate 1 % eye drops,krunal pension 06/17 completed Not Available Not Available Not Available metoclopr amide 5 mg tablet 03/27 completed Not Available Not Available Not Available methocarb shawna 750 mg tablet TAKE 1 TABLET BY MOUTH THREE TIMES DAILY NEEDED 06/17 completed Not Available Not Available Not Available oxycodone -acetamin ophen 10 mg-325 mg tablet TAKE 1/2 TABLET BY MOUTH EVERY 6 HOURS NEEDED active Not Available Not Available No t Available tamsulosi n 0.4 mg capsule TAKE 1 CAPSULE BY MOUTH DAILY 06/17 completed Not Available Not Available Not Available gabapenti n 800 mg tablet TAKE 1 TABLET BY MOUTH FOUR TIMES A DAY 12/11 completed Not Available Not Available Not Available dicyclomi ne 20 mg tablet 01/24 completed Not Available Not Available Not Available meclizine 25 mg tablet TAKE 1 TABLET BY MOUTH EVERY DAY NEEDED FOR DIZZINES S active Not Available Not Available No t Available doxycycli ne monohydra te 100 mg capsule active Not Available Not Available Not Available hydrocodo ne 7.5 mg-acetam inophen 325 mg tablet TAKE 1 TABLET BY MOUTH EVERY 6 HOURS FOR 3 DAYS NEEDED FOR PAIN 10/20 completed Not Available Not Available Not Available ropinirol e 2 mg tablet TAKE 1 TABLET EVERY DAY AND TAKE 1 TABLET NEEDED DIRECTED active Not Available Not Available No t Available pantopraz ole 40 mg tablet,de layed release TAKE 1 TABLET ONE TIME DAILY active Not Available Not Available No t Available erythromy rich 5 mg/gram (0.5 %) eye ointment 06/17 completed Not Available Not Available Not Available cyanocoba selena (vit B-12) 1,000 mcg/mL injection solution active Not Available Not Available Not Available Cipro 500 mg tablet Take 1 tablet every 12 hours by oral route. 05/02 completed Not Available Not Available Not Available nitrofura ntoin macrocrys iram 100 mg capsule TAKE 1 CAPSULE BY MOUTH TWICE DAILY FOR 7 DAYS active Not Available Not Available No t Available tobramyci n 0.3 % eye drops 06/17 completed Not Available Not Available Not Available calcipotr iene 0.005 % topical cream 07/28 completed Not Available Not Available Not Available propranol ol ER 80 mg capsule,2 4 hr,extend ed release 01/24 completed Not Available Not Available Not Available promethaz ine 25 mg tablet TAKE 1 TABLET BY MOUTH EVERY 8 HOURS FOR 7 DAYS NEEDED active Not Available Not Available No t Available indometha rich 25 mg capsule TAKE 1 CAPSULE BY MOUTH THREE TIMES DAILY FOR 7 DAYS WITH FOOD OR MILK 06/17 completed Not Available Not Available Not Available Advair Diskus 250 mcg-50 mcg/dose powder for inhalatio n Inhale 1 puff twice a day by inhalati on route. 05/14 completed Not Available Not Available Not Available nicotine 21 mg/24 hr daily transderm al patch APPLY 1 PATCH TRANSDER HELIO ONCE DAILY active Not Available Not Available No t Available gabapenti n [address] garcia- ON 600MG NOW 03/27 completed Not Available Not Available Not Available triamtere ne 37.5 mg-hydroc hlorothia zide 25 mg tablet Take 1/2-1 full tablet daily, as needed, for swelling 09/26 completed Not Available Not Available Not Available diclofena c sodium 75 mg tablet,de layed release TAKE 1 TABLET BY MOUTH TWICE DAILY FOR 21 DAYS active Not Available Not Available No t Available mont[address] [facility] 10 mg tablet TAKE 1 TABLET EVERY DAY 03/02 completed Not Available Not Available Not Available hydroxyzi ne HCl 25 mg tablet 01/24 completed Not Available Not Available Not Available aspirin 81 mg tablet Daily 01/24 completed Duration : 30 days;Anthony quency: daily;Me dication Descript ion: aspirin; Dosage:1 ; Route:or al; refills: 0; Quantity :30 tablet Not Available Not Available Not Available gabapenti n 100 mg capsule 1-2 as needed for pain 01/22 completed Not Available Not Available Not Available sodium chloride 0.9 % intraveno us solution Inject 1000 mL by intraven ous route. 05/18 completed Not Available Not Available Not Available azelastin e 137 mcg (0.1 %) nasal spray USE 1 TO 2 SPRAYS IN EACH NOSTRIL TWICE DAILY FOR NASAL ALLERGIE S active Not Available Not Available No t Available oxycodone -acetamin ophen 7.5 mg-325 mg tablet 08/06 completed Not Available Not Available Not Available estradiol 0.01% (0.1 mg/gram) vaginal cream INSERT 1 GRAM VAGINALL Y TWICE A WEEK 06/17 completed Not Available Not Available Not Available levofloxa rich 750 mg tablet 01/24 completed Not Available Not Available Not Available scopolami ne 1 mg over 3 days transderm al patch APPLY NEW PATCH EVERY 3 DAYS 06/17 completed Not Available Not Available Not Available methylpre dnisolone 4 mg tablets in a dose pack FOLLOW PACKAGE DIRECTIO NS. TAKE FOR 6 DAYS WITH FOOD active Not Available Not Available No t Available albuterol sulfate HFA 90 mcg/actua tion aerosol inhaler INHALE 2 PUFFS BY MOUTH EVERY 6 HOURS active Not Available Not Available No t Available Vitamin D2 1,250 mcg (50,000 unit) capsule 01/24 completed Not Available Not Available Not Available ketorolac 60 mg/2 mL intramusc ular solution Inject 2 mL by intramus cular route. 08/18 completed Not Available Not Available Not Available oxybutyni n chloride 5 mg tablet TK 1 T PO BID 01/05 completed Not Available Not Available Not Available atropine 1 % eye drops 06/17 completed Not Available Not Available Not Available cefdinir 300 mg capsule TAKE 1 CAPSULE BY MOUTH TWICE DAILY FOR 7 DAYS FOR UTI active Not Available Not Available No t Available topiramat e 100 mg tablet TAKE 1 TABLET TWICE DAILY active Not Available Not Available No t Available albuterol sulfate concentra te 5 mg/mL(0.5 %) solution for nebulizat ion 07/28 completed Medicati on Descript ion: albutero l; Route:in halation ; refills: 0 Not Available Not Available Not Available fluticaso ne propionat e 50 mcg/actua tion nasal spray,krunal pension [place] 1 spray twice a day by intranas al route for 30 days. 06/17 completed Not Available Not Available Not Available metformin ER 500 mg tablet,ex tended release 24 hr 03/17 completed Not Available Not Available Not Available Phenergan 25 mg/mL injection solution Take 2 mL by injectio n route. 10/27 completed Not Available Not Available Not Available diazepam 5 mg tablet TAKE 1 TABLET BY MOUTH EVERY 8 HOURS NEEDED 07/26 completed Not Available Not Available Not Available amoxicill in 875 mg-potass ium clavulana te 125 mg tablet Take 1 tablet every 12 hours by oral route for 10 days. 09/18 completed Not Available Not Available Not Available Test Strips active Not Available Not Available Not Available coenzyme Q10 100 mg capsule active Not Available Not Available Not Available metformin ER 750 mg tablet,ex tended release 24 hr TAKE 1 TABLET BY MOUTH TWICE DAILY 01/26 completed Not Available Not Available Not Available Premarin 0.625 mg/gram vaginal cream 01/24 completed Not Available Not Available Not Available aripipraz ole 5 mg tablet shaila handy 07/28 completed Not Available Not Available Not Available bupropion HCl XL 300 mg 24 hr tablet, extended release Take 1 tablet every day by oral route for 90 days. 03/02 completed Not Available Not Available Not Available bupropion HCl XL 150 mg 24 hr tablet, extended release Take 1 tablet every day by oral route for 90 days. 03/02 completed Not Available Not Available Not Available topiramat e 50 mg tablet take 1 tablet by mouth twice a day 12/27 completed Not Available Not Available Not Available Spiriva with [employer] r 18 mcg and inhalatio n capsules 03/27 completed Medicati on Descript ion: tiotropi um; Route:in halation ; refills: 0 Not Available Not Available Not Available nitrofura ntoin monohydra te/macroc rystals 100 mg capsule TAKE 1 CAPSULE BY MOUTH TWICE DAILY 08/18 completed Not Available Not Available Not Available ketorolac 60 mg/2 mL intramusc ular syringe Inject 2 mL by intramus cular route. 06/17 completed Not Available Not Available Not Available pregabali n 75 mg capsule 12/11 completed Not Available Not Available Not Available pregabali n 100 mg capsule 01/05 completed Not Available Not Available Not Available lancets test one time a day 03/04 completed Not Available Not Available Not Available Aspir-81 1 daily 04/27 completed Not Available Not Available Not Available Botox 07/07 completed Medicati on Descript ion: botulinu m toxin type A; Route:in jectable ; refills: 0 Not Available Not Available Not Available varenicli ne tartrate 1 mg tablet TAKE 1 TABLET BY MOUTH TWICE DAILY DIRECTED 06/17 completed Not Available Not Available Not Available varenicli ne tartrate 0.5 mg (11)-1 mg (42) tablets in a dose pack TAKE ACCORDIN G TO PACKAGE INSTRUCT IONS 06/17 completed Not Available Not Available Not Available Januvia 50 mg tablet Take 1 tablet every day by oral route for 90 days. 07/18 completed Not Available Not Available Not Available Januvia 100 mg tablet 1 tablet Daily 07/18 completed Not Available Not Available Not Available Symbicort 160 mcg-4.5 mcg/actua tion HFA aerosol inhaler Inhale 1 puff twice a day by inhalati on route for 30 days. 03/12 completed Medicati on Descript ion: budesoni de-formo terol; Route:in halation ; refills: 0 Not Available Not Available Not Available cholecalc iferol (vitamin D3) 1,250 mcg (50,000 unit) capsule 07/28 completed Not Available Not Available Not Available levocetir izine 5 mg tablet TAKE 1 TABLET BY MOUTH ONCE DAILY active Not Available Not Available No t Available Nucynta 100 mg tablet 07/07 completed Not Available Not Available Not Available Nucynta 75 mg tablet 01/24 completed Medicati on Descript ion: tapentad ol; Route:or al; refills: 0 Not Available Not Available Not Available Botox 200 unit injection 01/24 completed Not Available Not Available Not Available Solu-Medr ol (PF) 125 mg/2 mL solution for injection Take 125 mg by injectio n route. 11/07 completed Not Available Not Available Not Available Prevnar 13 (PF) 0.5 mL intramusc ular syringe 12/27 completed Not Available Not Available Not Available Cambia 50 mg oral powder packet 05/02 completed Medicati on Descript ion: diclofen ac; Route:or al; refills: 0 Not Available Not Available Not Available sodium,po tassium,m ag sulfates 17.5 gram-3.13 gram-1.6 gram oral soln Take as directed 06/17 completed Not Available Not Available Not Available Allergy Relief (fexofena dine) 180 mg tablet TAKE 1 TABLET BY MOUTH ONCE DAILY active Not Available Not Available No t Available Nucynta ER 150 mg tablet,ex tended release 01/24 completed Not Available Not Available Not Available Flushable Cleansing Cloths 05/14 completed Not Available Not Available Not Available Combivent Respimat 20 mcg-100 mcg/actua tion solution for inhalatio n Inhale 2 puffs twice a day by inhalati on route. 05/14 completed Not Available Not Available Not Available Myrbetriq 50 mg tablet,ex tended release Take 1 tablet every day by oral route. 03/16 completed Not Available Not Available Not Available Vicodin 5 mg-300 mg tablet Every six hours 01/24 completed Frequenc y: q6h;Alt Frequenc y: prn;Medi cation Descript ion: acetamin ophen-hy drocodon e; Dosage:1 ; Route:or al; refills: 0; Quantity :6 tablet Not Available Not Available Not Available TRUEplus Lancets 33 gauge 03/30 completed Not Available Not Available Not Available TRUEplus Lancets 30 gauge USE ONE LANCET DAILY 03/04 completed Not Available Not Available Not Available Fioricet 50 mg-300 mg-40 mg capsule 1-2 tablets every 6-8 hours as needed for headache .do not take more than 2 days/sandra billings 09/26 completed Not Available Not Available Not Available topiramat e XR 200 mg capsule,e xtended release 24 hr Take 2 capsules every day by oral route for 90 days. 07/25 completed Not Available Not Available Not Available mecobalam in (vitamin B12) 1,000 mcg disintegr ating tablet,triana blingual active Not Available Not Available Not Available topiramat e XR 200 mg capsule sprinkle, extended release 24 hr 03/02 completed Not Available Not Available Not Available Trulicity 1.5 mg/0.5 mL subcutane ous pen injector ADMINIST ER 1.5 MG UNDER THE SKIN WEEKLY active Not Available Not Available No t Available Trulicity 0.75 mg/0.5 mL subcutane ous pen injector INJECT 0.75MG (1 PEN) UNDER THE SKIN EVERY WEEK active Not Available Not Available No t Available Breo Ellipta 200 mcg-25 mcg/dose powder for inhalatio n Inhale 1 puff twice a day by inhalati on route. 07/28 completed Not Available Not Available Not Available Vraylar 1.5 mg capsule active Not Available Not Available Not Available Accu-Chek Guide test strips Use as directed to check blood sugar once daily active Not Available Not Available No t Available Shingrix (PF) 50 mcg/0.5 mL intramusc ular suspensio n, kit 12/27 completed Not Available Not Available Not Available Dexcom G6 Transmitt er device as directed 03/30 completed Not Available Not Available Not Available Aimovig Autoinjec tor 70 mg/mL subcutane ous auto-inje ctor Inject 1 mL every month by subcutan eous route for 30 days. 07/27 completed Not Available Not Available Not Available Afluria Quad (PF) 60 mcg (15 mcg x 4)/0.5 mL IM syringe 11/07 completed Not Available Not Available Not Available Ajovy Syringe 225 mg/1.5 mL subcutane ous 06/12 completed Not Available Not Available Not Available Emgality Pen 120 mg/mL subcutane ous pen injector ADMINIST ER 1 ML UNDER THE SKIN EVERY 3 MONTHS active Not Available Not Available No t Available Accu-Chek Guide Me Glucose Meter use to check blood sugar once daily active Not Available Not Available No t Available Afluria Qd 2018- (36 mos up)(PF)60 mcg (15 mcg x4)/0.5 mL IM syringe 03/06 completed Not Available Not Available Not Available Trulicity 3 mg/0.5 mL subcutane ous pen injector INJECT 3MG UNDER THE SKIN WEEKLY 07/07 completed Not Available Not Available Not Available Trelegy Ellipta 200 mcg-62.5 mcg-25 mcg powder for inhalatio n INHALE 1 PUFF EVERY DAY active Not Available Not Available No t Available BinaxNOW COVID-19 Ag Self Test kit TEST DIRECTED TODAY 08/18 completed Not Available Not Available Not Available Qulipta 60 mg tablet TAKE 1 TABLET BY MOUTH ONCE DAILY FOR EPISODIC MIGRAINE active Not Available Not Available No t Available DropSafe Alcohol Prep Pads USE DIRECTED active Not Available Not Available No t Available Vitals Date Recorded Body height Body mass index (BMI) Body weight Heart rate Oxygen saturation Oxygen saturation in Arterial blood by Pulse oximetry Systolic blood pressure Diastolic blood pressure Provider Name and Address Organization Details Last Updated DateTime 162.56 cm 24.4 kg/m2 55388.1 2 g 84 /min 97 % 97 % 100 mm[Hg] 65 mm[Hg] Madyson Blood [facility] 3 10:32:52 Date Recorded Body height Body mass index (BMI) Body weight Provider Name and Address Organization Details Last Updated DateTime 11/07/2022 162.56 cm 24.4 kg/m2 80963.12 g [facility] 11/07/2022 11:30:11 Date Recorded Body height Body mass index (BMI) Body weight Provider Name and Address Organization Details Last Updated DateTime 12/01/2022 162.56 cm 24.4 kg/m2 05725.12 g [facility] 12/01/2022 10:07:46 Date Recorded Body height Body mass index (BMI) Body weight Provider Name and Address Organization Details Last Updated DateTime 12/14/2022 162.56 cm 24.4 kg/m2 20598.12 g Peacechino Santiago [facility] 12/14/2022 13:03:16 Date Recorded Body height Body mass index (BMI) Body weight Provider Name and Address Organization Details Last Updated DateTime 02/16/2023 162.56 cm 24.4 kg/m2 13917.12 g Brina Isaac [facility] 02/16/2023 12:46:58 Social History Question Answer Notes LastModified by Organizat ion Details LastModified Time Tobacco Smoking Status Current Every Day [facility]2016 15:31:35 How Much Tobacco Do You Chew? None [email or web address] Information not available 06/26/2018 Marital Status [email or web address] Informat ion not available 05/14/2018 What Was The Date Of Your Most Recent Tobacco Screening? 09/06/2021 [email or web address] Information not available 09/06/2021 What Is Your Relationship Status? [email or web address] Information not available 05/25/2022 How Much Tobacco Do You Smoke? 0.5 PPD [email or web address] Information not available 06/05/2020 Has Tobacco Cessation Counseling Been Provided? Yes [email or web address] Information not available 02/02/2017 On What Date Was Tobacco Cessation Counseling Provided? 08/24/2018 [email or web address] Information not available 08/24/2018 How Many Years Have You Smoked Tobacco? 30 Information not available 07/07/2016 Sex: Female Functional Status Question Answer Note LastModified by Organizat ion Details LastModified Time What is your level of alcohol consumption? None Information not available 07/07/2016 Do you or have you ever used smokeless tobacco? Never used smokeless tobacco Information not available 01/06/2020 Do you or have you ever used e-cigarettes or vape? Never used electronic cigarettes Information not available 01/06/2020 Mental Status None recorded. Family History Relationship Description Onset Age of this Age Resolved Age Notes LastModified by Organization Details LastModified Time Mother Diabetes mellitus Not available 07/07 15:14:41 Mother Family history of malignant neoplasm Not available 07/07 15:14:54 Mother Family history of stroke Not available 07/07 15:31:07 Mother Bleeding Not availab le 07/07/2016 15:31:18 Father Family history of malignant neoplasm Not available 07/07 15:14:54 Father Heart disease Not available 07/07 15:15:02 Father Hypertensive disorder Not available 07/07 15:15:11 Father Family history of stroke Not available 07/07 15:15:20 Father Hearing loss Not shannon ilable 07/07/2016 15:30:53 Father Diabetes mellitus [email or web address] Not available 13:55:52 Father Family history of neurological disorder [email or web address] Not available 13:56:16 Son Family history of malignant neoplasm Not available 07/07 15:14:54 Son Family history of neurological disorder [email or web address] Not available 13:56:16 Brother Diabetes mellitus [email or web address] Not available 13:55:54 Brother Family history of neurological disorder [email or web address] Not available 13:56:16 Maternal Grandfather Diabetes mellitus [email or web address] Not available 13:55:58 Maternal Grandmother Diabetes mellitus [email or web address] Not available 13:56:00 Medical History Condition Response Anxiety Disorder Y Allergies/Hayfever Y Diabetes Y Bleeding Disorder N Chronic Obstructive Pulmonary Disease Y Kidney Stones Y Tuberculosis Y Hyperlipidemia Y Cancer N Migraines Y COPD Y Depression Y High Cholesterol Y Anesthesia Complications N Headaches Y Hypertension N Gynecological HistoryNo gynecological history recorded. Obstetrics History GPAL:G 0 P 0 0 0 0 Immunizations Vaccine Type Date Status Note Provider Nam e and Address Organization Details Recorded Time Influenza, split virus, quadrivalent, preservative 9 completed Not Available [facility] 12/14/2022 12:33:02 Pneumococcal conjugate PCV 13 9 completed Not Available [facility] 12/14/2022 12:33:02 zoster recombinant 9 completed Shadia Burrell [facility] 12/27/2018 15:27:03 COVID-19, mRNA, LNP-S, PF, 30 mcg/0.3 mL dose 1 completed Annie Land [facility] 08/18/2022 10:06:33 COVID-19, mRNA, LNP-S, PF, 30 mcg/0.3 mL dose 1 completed [facility] 08/18/2022 10:06:33 Pneumococcal conjugate PCV20, polysaccharide EYR620 conjugate, adjuvant, PF 2 completed [facility] 08/18/2022 10:06:33 Influenza, split virus, trivalent, PF 7 completed [facility] 08/18/2022 10:06:33 Influenza, split virus, quadrivalent, PF 8 completed Not Available [facility] 03/09/2019 02:49:31 Past Encounters Encounter ID Performer Location Encounter Start Date Encounter Closed Date Diagnosis/Indication Diagnosis SNOMED-CT Code Diagnosis ICD10 Code Diagnosis Note [id number] [facility] [address] 05/23/2016 17:58:10 05/23/2016 17:58:10 [id number] NOELLE HARDY MD [place] [facility] [address] [place] [address] 07/07/2016 14:59:34 07/08/2016 08:29:29 Bilateral tinnitus 1304747728 102 H93.13 Sensorineu ral hearing loss of bilateral ears 295785552 H90.3 Noise-leah renato hearing loss 78953290 H83.3X9 Nicotine dependence 5629 4008 F17.726 [id number] DA GUTIERREZRYCONCETTA [place] [facility] [address] [place] [address] 07/07/2016 15:52:50 07/07/2016 16:14:53 Bilateral tinnitus 4519673810 102 H93.13 Sensorineu ral hearing loss of bilateral ears 831635891 H90.3 [id number] LEANNA RIVERA MD [address] [address] 01/24/2017 09:13:34 01/30/2017 13:41:33 Gastro-esophageal reflux disease with esophagitis 764833232 K21.0 I discussed with the patient transition ing her proton pump inhibitor from omeprazole which she's been on for many years to pantoprazo le to see if this improves her GI symptoms. I discussed the etiology and course of gastritis and acid reflux and its relationsh ip to her irritable bowel syndrome. Discussed the medication appropriat e use and possible side effects. Screening for malignant neoplasm of breast 905079448 Z12.31 Past due, patient is willing to schedule with today's visit. Restless legs 65273614 G 25.81 Controlled with low-dose ropinirole . Continue current regimen. Primary insomnia 2676981 F51.01 As above. Type 2 olga betes mellitus without complication 755761760 E11.9 According to patient's historical recall, this has been very well controlled . We'll plan to check some routine diabetes labs today. Continue current regimen. Overweight 752606592 E66 .3 I discussed with the patient the importance of maintainin g a healthy weight. I discussed the importance of both diet and exercise on both overall health, quality of life, and cardiovasc ular health. I discussed the importance of diet from a weight loss perspectiv e. I also discussed the importance of exercise from a cardiovasc ular health and laboratory perspectiv e. I emphasized the importance of exercises as an adjunct to diet. I encouraged the patient that even a modest weight reduction would likely have a profound impact on their overall health and cardiovasc ular risk. I recommende d a hypocalori c diet that is high in lean proteins such as chicken, healthy fats such as fish/nuts, and whole vegetables /fiber. Also, I encouraged a diet low in sweets/car bohydrates /fast&proc essed foods as well as fatty/frie d foods in general. Dyslipidemia 958448645 E 78.5 Patient continues to tolerate high-inten sity Lipitor well. No history of strokes or heart attacks. History of diabetes mellitus type 2 and strong family history of combined hyperlipid emia and vascular disease. Chronic ob structive pulmonary disease 87706532 J44.9 Symptoms stable on current regimen. Posttrauma tic stress disorder 23802419 F43.10 Discussed the patient's PTSD and major depression at length. She is currently continuing to work on her acceptance and emotional reaction to her past history. Her medication s are so far well tolerated. She is going to continue to follow regularly with her long-stand ing psychiatri st and therapist at [facility]. Recurrent major depression 32738406 F33.9 Familial c ombined hyperlipidemia 257143782 E78.4 Screening for malignant neoplasm of colon 586280568 Z12.11 Needs documentat ion [id number] ABENA VALENTINE MD [facility] [address] [place] [address] 02/02/2017 16:05:46 02/03/2017 09:41:42 Urinary tract infectious disease 59277978 N39.0 Urgent mariel bianca to urinate 77541540 R39.15 [id number] LEANNA RIVERA MD [address] [address] 02/24/2017 11:35:02 02/28/2017 15:10:32 Type 2 diabetes mellitus without complication 352911616 E11.9 Patient did not have bloodwork checked as ordered at last visit. Recurrent major depression 40744480 F33.9 Mood and depressive symptoms are stable. Chronic ob structive pulmonary disease 08336754 J44.9 Symptoms stable on current regimen. Screening for malignant neoplasm of breast 822230461 Z12.31 Past due, patient is willing to schedule with today's visit. She missed her scheduled exam that was made at the last visit. Right side d chest pain 262921035 R07.89 Discussed the etiology and course or right rib fracture and costal chondritis . My suspicion for actual fracture is low but I think given her ongoing spinting an x-ray to predict length of recovery and possible underlying PNA is reasonable . Discussed the medication provided, the importance of limiting use, and side effects. F/u in 2 weeks. [id number] MD [facility]OO[facility] [address] [place] [address] 03/02/2017 12:59:17 03/07/2017 13:23:24 Urinary tract infectious disease 43594204 N39.0 Increased frequency of urination 783067811 R35.0 [id number] LEANNA RIVERA MD [address] [address] 03/27/2017 10:11:42 03/28/2017 15:16:04 Gastro-esophageal reflux disease with esophagitis 205122555 K21.0 I discussed the etiology and course of GERD, esophagiti s, gastritis, duodenitis , and gastric/du odenal ulcers. She does high risk given her medication history as well as history of previous ulcerative disease. She is well past due for repeat EGD or colonoscop y so we will plan to order this in conjunctio n with today's visit. Discussed the appropriat e use of Protonix and Carafate pending her evaluation with gastroente rology. Gastroduodenitis 1513017 05 K29.90 Migraine 35745080 G43.90 9 hhis medical care is complicate d by polypharma cy. As a general approach to her care I been trying to simplify and consolidat e her medicine. Patient is on tizanidine daily at bedtime. I assume for muscle cramps or sleep but the patient does not know why she takes it. We discussed its use and discontinu ing it Also, she is on Topamax 150 mg twice daily rapid release. She takes this as 100 mg dose plus a 50 mg dose. I am going to consolidat e this to 400 mg extended release once daily I think she'll have more consistent levels and a simpler regimen. Chronic ob structive pulmonary disease 39595992 J44.9 Symptoms stable on current regimen.st rongly encouraged smoking cessation [id number] MD [facility] [address] [place], [place] [address] 03/28/2017 10:38:47 03/28/2017 17:13:05 Urinary tract infectious disease 89019624 N39.0 Increased frequency of urination 888998238 R35.0 Abdominal pain 03892623 R10.9 Blood in urine 68597553 R31.9 [id number] SHANE PELAYO MD SURGERY SCHEDULE [address] [place] [address] 04/06/2017 07:55:31 04/06/2017 07:55:53 [id number] MD [facility] [address] [place] [address] 04/11/2017 10:23:33 04/11/2017 12:09:46 Abdominal pain 53598131 R10.9 Microscopic hematuria 19 2491700 R31.21 [id number] ABENA VALENTINE MD SURGERY SCHEDULE [address] [place] [address] 04/17/2017 08:43:38 04/17/2017 08:45:17 [id number] MD RICARDO RAOChino [facility] [address] [place] [address] 05/02/2017 12:57:17 05/02/2017 17:34:58 Abdominal pain 37005013 R10.9 [id number] LEANNA RIVERA MD [address] [place] [address] 06/23/2017 10:13:42 06/26/2017 10:11:25 Allergic rhinitis 71302371 J30.9 stable on Singulair Migraine with aura 16301 06 G43.109 I discussed with the patient the medication s prescribed . They're appropriat e use. Possible side effects. She has tolerated the Topamax XR well. Written escalate dose today. oriented to trial of dihydroerg otamine due to her severe symptoms and poor control. I discussed with her that this is not a benign medicine that it has multiple cardiovasc ular risks associated with it. Especially in the setting of her smoking this is a notable concern. However, she accepts this and is willing to take the risk if it will alleviate her headache symptoms and improve her quality of life. I discussed with the patient in detail the appropriat e use of the DHE and and appropriat e administra tion. Really do think the patient would benefit from a pain specialist . In particular a headache pain specialist . We will continue to broach and encourage this with the patient in the future. Type 2 olga betes mellitus without complication 157232474 E11.9 Patient did not have bloodwork checked as ordered at last visit. Nicotine dependence 5629 4008 F17.200 I had a 5 minute conversati on with the patient regarding the risks of ongoing tobacco use and the benefits of cessation. We discussed multiple strategies for smoking cessation including medication s and combined nicotine replacemen t therapy along with counseling . Encouraged the patient to choose a strategy and a quit date in the coming weeks. I discussed that the patient is welcome to call us if they need further resources or assistance . We will continue to reinforce this at future visits. Chronic ob structive pulmonary disease 42429585 J44.9 symptoms are baseline and stable on current regimen. No change. Strongly encouraged smoking cessation as above. Moderate dehydration 537 6083847 105 E86.0 I had a conversati on with the patient regarding the chronic dehydratio n that she appears to have. Her mucosal membranes though moist were somewhat tacky, Lipitor cracked, there was some mild skin tenting. I really think that both her smoking and her dehydratio n contribute significan tly to her headaches and encouraged her to work on this. [id number] LEANNA RIVERA MD [address] [address] 06/29/2017 09:52:14 06/30/2017 12:01:34 Dysuria 01675545 R30.0 Spasm of back muscles 20 3935860 M62.830 Discussed the etiology and expected course of back pain due to muscle spasms. Discussed initial conservati ve care with gentle stretching /ROM exercises. Discussed the appropriat e use of NSAIDs/George roids as ordered. Discussed signs and symptoms of worsening or more serious conditions that would warrant reassessme nt in clinic or ED. Chronic pe lvic pain of female 388316650 R10.2 patient notes she has chronic pelvic pain issues and difficulty with urinating and has been placed on Murbach trach long-term by her gynecologi st. She would like a second opinion from a different gynecologi st with [facility] and is requesting a referral for this today. [id number] LEANNA RIVERA MD [address] [address] 07/18/2017 13:29:28 07/19/2017 12:28:30 Complicated migraine 014526814 G43.109 patient has follow-up scheduled with neurology. She's not had recurrence of symptoms. Continue current regimen. Panic attack 577975818 F 41.0 nno recurrence . Continue current anxiolytic and mood medicines. Type 2 olga betes mellitus without complication 898089222 E11.9 patient has tolerated de-escalat ion of her Januvia well. Her fingerstic k blood sugars remain in the normal range. I'm and a half or discontinu e the medicine and continue to monitor it between now and her Medicare wellness visit in September. At that time we'll recheck an A1c and look at perhaps starting to taper off the metformin as well. She has really done well with her diet and maintainin g her blood sugars and I think she is working towards significan t de-escalat ion of her anti-glyce silvio. Chronic ob structive pulmonary disease 70156107 J44.9 breathing is at baseline and stable today. No change. Continue to encourage smoking cessation. [id number] LEANNA RIVERA MD [address] [place] [address] 07/25/2017 08:38:12 07/26/2017 08:57:04 Pain of joint of ankle and/or foot 448558106 M25.579 I suspect that this is soft tissue injury. The course is difficult to say. It may even just be related to her limping after the injury to her left leg. I discussed the importance of rest, ice, support, and elevation to help healing. We will check an x-ray to make sure there is not some underlying stress or other fracture. Of worsening condition or infection that would warrant urgent reassessme nt in clinic or emergency department . Migraine with aura 68860 06 G43.109 at her last visit we had increased her Topamax from 100 mg twice a day to 200 mg twice per day to see if this had any benefit for her headaches. The patient reports that she really had no change in her symptoms so we recommende d going back down to her previous dose today.depe nding on how she tolerates this I may even recommend she decrease further to 50 mg twice a day at her next visit. [id number] HOANG RIVERO APRN CARDIOLOG Y [address] [place] [address] 07/28/2017 14:16:58 07/28/2017 15:40:26 Palpitations 41927331 R00.2 Patch holter monitor Pt was recently hospitaliz ed for a neurologic al event- undetermin ed whether TIA or atypical migraine Echo with bubble study in hospital: EF 50-55%, no intracardi ac shunting. Chest pain 72911736 R07. 9 Pt complains of subscapula r pain with associated diaphoresi s Last stress test greater than 15 years ago Set up outpatient stress test. Pt unsure if anxiety is playing a roll in her symptoms Tobacco de pendence syndrome 56138318 F17.200 smoking cessation counseling [id number] AZAM LOPEZ MD [facility] [address] [place] [address] 07/31/2017 09:03:51 07/31/2017 09:05:58 Palpitations 96590476 R00.2 [id number] SAÚL SIMEON PA-C SAME DAY [address] [address] 08/06/2017 09:12:50 08/06/2017 11:51:19 Pain in left foot 1744900179 54537 M79.397 [id number] LEANNA RIVERA MD [address] [address] 09/07/2017 10:34:03 09/08/2017 13:20:04 Acute maxillary sinusitis 45618090 J01.00 Acute exac erbation of chronic obstructive pulmonary disease 544799086 J44.1 Chronic ob structive pulmonary disease 41906060 J44.9 breathing is at baseline and stable today. No change. Continue to encourage smoking cessation. Gastro-eso phageal reflux disease with esophagitis 375211679 K21.0 I discussed the etiology and course of GERD, esophagiti s, gastritis, duodenitis , and gastric/du odenal ulcers. She does high risk given her medication history as well as history of previous ulcerative disease. She is well past due for repeat EGD or colonoscop y so we will plan to order this in conjunctio n with today's visit. Discussed the appropriat e use of Protonix and Carafate pending her evaluation with gastroente rology. [id number] LEANNA RIVERA MD [address] [address] 09/11/2017 13:36:24 09/12/2017 09:17:10 Acute exacerbation of chronic obstructive pulmonary disease 448361239 J44.1 patient breathing is noted to be dramatical ly improved with the initiation of standard COPD treatment. Patient is tolerating the steroids and the antibiotic s well. discussed ongoing treatment, side effects and signs or symptoms of worsening condition that would warrant reassessme nt. [id number] LEANNA RIVERA MD [address] [place] [address] 11/07/2017 10:11:40 11/08/2017 12:21:40 Nicotine dependence 53692574 F17.200 patient has made some progress with reduction of her cigarette use with the addition of bupropion at her earlier visit. She is agreeable to escalating and I think that she will benefit from it. She is generally tolerated the medicine well and has not had any side effects or problems. I'm hopeful we will see continued improvemen t in her nicotine use frequency and or hopefully cessation in the coming months as she is moving in with her cousin in [place] who does not smoke nor allow smoking in the house. Acute maxi llary sinusitis 53248249 J01.00 I discussed with the patient the etiology and expected course of an acute sinusitis. I discussed the rationale for using antibiotic s in this case. I discussed the appropriat e use and side effects of the antibiotic s.I discussed supportive care with antihistam rivera, decongesta nts, and steroids. I discussed the importance of rest and adequate oral hydration. I discussed with him signs and symptoms of worsening condition that would warrant reassessme nt here in clinic or the emergency department . Neck pain 04942231 M54.2 I discussed the etiology and course and treatment of spasms in the trapezius and neck muscles as well as their conservati ve treatment with rest, ice, NSAIDs, support and anti-infla mmatories as prescribed . Also described Flexeril use. Active or passive immunization 230405342 Z23 Restless legs 18384687 G 25.81 Controlled with low-dose ropinirole . Continue current regimen. Gastroduodenitis 4393606 05 K29.90 Dyslipidemia 849175521 E 78.5 Patient continues to tolerate high-inten sity Lipitor well. No history of strokes or heart attacks. History of diabetes mellitus type 2 and strong family history of combined hyperlipid emia and vascular disease. Primary insomnia 4388057 F51.01 As above. [id number] KEVIN CALI PA-C [address] [place] [address] 11/08/2017 10:23:47 11/08/2017 10:37:45 Administration of influenza vaccine 66357931 Z23 [id number] LEANNA RIVERA MD [address] [place] [address] 03/02/2018 09:59:47 03/05/2018 13:35:13 Nicotine dependence 95061958 F17.200 She still needs to stop smoking. We can readdress this once her emotions are more stable. Restless legs 61330509 G 25.81 Controlled with low-dose ropinirole . Continue current regimen. Gastroduodenitis 8744319 05 K29.90 Symptoms stable. We are going to hold on resuming PPI. Dyslipidemia 276583693 E 78.5 Patient continues to tolerate high-inten sity Lipitor well. No history of strokes or heart attacks. History of diabetes mellitus type 2 and strong family history of combined hyperlipid emia and vascular disease. Primary insomnia 2593904 F51.01 We had been gradually weaning her down and off of the Elavil. However, she had started taking it sporadical ly for sleep. Again, this is a medicine I would like to see her come off of altogether . However, I think stability in dosing will do her more good at this juncture. Generalize d anxiety disorder 24657723 F41.1 Migraine with aura 07094 06 G43.109 Headache recurrence is contribute d by emotional difficulti es, lack of sleep, and likely poor nutrition and hydration. She has a history of similar migraine headaches. Responde well to the below regimen in the past. She has a relative with her today that will be able to help drive her home. Type 2 olga betes mellitus without complication 225429025 E11.9 Not on antiglycem ics at this time. Has been through a period of severe stress. We are going to recheck labs in the near future. Recurrent major depression 79065926 F33.9 See Above. Cerebrovas cular accident 988763129 I63.9 Continue AC with LDA and continue high intensity lipitor. BP is low today. I suspect due to poor hydration and poor nutrition habits associated with her recent emotional trauma. Posttrauma tic stress disorder 87534010 F43.10 Patient has a known history of PTSD and Major depression and generally labile emotional status. Unfortunat baldomero, she suffered some additional trauma witnessing the mauling of her dog. She is very much struggling to overcome this event. I believe it is possible she may need more trauma therapy. That said, I am also concerned that she was more vulnerable when this occurred due to being away from her regular support system and having been inconsiste ntly taking her medicine due to lack of access to a doctor in [place]. I think that paramount for her stability today is to get her back on some of her medicines at stable and regular doses. I want to keep it more simple than it had been prior. Patient has been on benzodiaze pine for many years. I believe she would benefit from weaning off of these alltogethe r. However, it is not fair to expect this during a period of stress and I believe she would need a gradual taper. I believe that being off of these added to her emotional vulnerabil ity and lability as of late. I want the patient to return for a quick F/u in 1-2 weeks once she has been back home for some time and has been back on her medicine. [id number] LEANNA RIVERA MD [address] [address] 03/16/2018 10:03:25 03/19/2018 16:17:07 Migraine with aura 2227195 G43.109 Patient would prefer a referral to pain management over neurology at this point. I discussed that I am agreeable with this. I am not sure that they aren't going to recommend similar interventi ons. Posttrauma tic stress disorder 81195011 F43.10 Patient has a known history of PTSD and Major depression and generally labile emotional status. These have stabilized slightly since restarting her medicine. I still believe she would benefit from counseling . To a large extent, she needs time for berievment and adjustment . She continues to have nightmares , flashbacks , and sleep disturbanc es. The stress has aggravated her migraines as above. Type 2 olga betes mellitus without complication 362111199 E11.9 Not on antiglycem ics at this time. Has been through a period of severe stress. We are going to recheck labs in the near future. [id number] TAYLOR BERG MD [facility] [address] [place] [address] 04/03/2018 10:43:42 04/04/2018 11:52:08 Cervico-occipital neuralgia 65595555 M54.81 Cervical spondylosis 387 859899 M47.418 [id number] TAYLOR BERG MD [facility] [address] [facility], [address] [place] [address] 04/18/2018 06:57:41 04/23/2018 13:36:31 Cervical spondylosis 725620693 M47.548 [id number] TAYLOR BERG MD [facility] [address] [facility], [address] [place] [address] 04/19/2018 12:19:22 04/23/2018 14:41:10 Cervical spondylosis 418352200 M47.714 [id number] LEANNA RIVERA MD [address] [address] 04/27/2018 09:04:26 04/30/2018 16:00:34 Migraine with aura 3923437 G43.109 Generalize d anxiety disorder 42974475 F41.1 Posttrauma tic stress disorder 13196733 F43.10 Patient has a known history of PTSD and Major depression and generally labile emotional status. 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 Burr he requests labs to r/o giant cell arteritis She does have some fatigue, headache and axial pain and stiffness which could definitely support this diagnosis he has also referred her to [facility] for opthamolog y eval., scheduled 06/14/18 Migraine without aura 56 098228 G43.009 She has long histor of headaches, so these may not be indication of GCA, will treat with toradol, phenergan which have helped before Hyperlipidemia 09600408 E78.5 Fatigue 36770177 R53.83 multifacto rial. It's been a while since she's had labs, so will go ahead with these to eval fatigue. [id number] LEANNA RIVERA MD [address] [place] [address] 06/26/2018 10:07:36 06/28/2018 12:37:10 Generalized anxiety disorder 83091437 F41.1 FLORY: 05/01/18; UDS: 06/26/18: CSA: 06/26/18 Patient is continuing to tolerate these medicines well. She is not having somnolence , confusion, or adverse affects. Her emotional decompensa tion from late last year is resolved. Primary insomnia 2129364 F51.01 We had been gradually weaning her down and off of the Elavil. However, she had started taking it sporadical ly for sleep. Again, this is a medicine I would like to see her come off of altogether . However, I think stability in dosing will do her more good at this juncture. Dyslipidemia 253848996 E 78.5 Patient continues to tolerate high-inten sity Lipitor well. No history of strokes or heart attacks. History of diabetes mellitus type 2 and strong family history of combined hyperlipid emia and vascular disease. 06-26-2018 HDL cholestero l 38 low triglyceri mariel 133 normal cholestero l 128 normal LDL cholestero l 63 normal Restless legs 44175642 G 25.81 Controlled with low-dose ropinirole . Continue current regimen. Chronic ob structive pulmonary disease 35518086 J44.9 breathing is at baseline and stable today. No change. Continue to encourage smoking cessation. Long-term drug therapy 403934257 Z79.899 See Above Anterior i schemic optic neuropathy of right eye 3514751907 5376018 H47.011 This is a concerning diagnosis. She had a right sided TIA last year. She is currently AC only with LDA. I think we need to do a more aggressive evaluation for thombotic source. We are going to order an MRA as below. She has a F/u with Neurology in a few weeks. She is at risk for CHANCE given her smoking history. No audible bruit today. My question for neurology would be whether or not she should have the addition of Plavix, Aggrenox, or Coumadin. Migraine without aura 56 513450 G43.009 She has long histor of headaches, so these may not be indication of GCA, will treat with toradol, phenergan which have helped before Fatigue 72153813 R53.83 multifacto rial. It's been a while since she's had labs, so will go ahead with these to eval fatigue. 06-26-2018 white blood cells 9.7 normal red blood cells 5.44 high hemoglobin 13.5 normal hematocrit 40.8 normal MCV 75 low MCH 25 low MCHC 33 normal RDW 16.1 high MPV 7.9 normal platelet count 285 normal 06-26-2018 TSH 0.742 normal 06-26-2018 glucose 74 normal blood urea nitrogen 3 low creatinine 0.61 normal BUN/creati nine ratio 5 low sodium 139 normal potassium 4.0 normal chloride 101 normal carbon dioxide 25 normal anion gap 13 normal calcium 9.5 normal total protein 7.5 normal albumin 3.8 normal globulin 3.7 normal albumin/gl obulin ratio 1.0 low bilirubin, total 0.3 normal alkaline phosphatas e 75 normal AST 24 normal ALT 21 normal GFR 113 normal GFR non-chrissie n malagasy 98 normal Hyperlipidemia 07173236 E78.5 See Above. Cerebrovas cular accident 676002349 I63.9 Hypervolemia 12463299 E8 7.70 Migraine 66567227 G43.90 9 History of transient ischemic attack 915906476 Z86.73 See Above. [id number] LEANNA DAVIDSON MD NEUROLOGY [facility] [address] [place] [address] 07/23/2018 11:28:18 07/24/2018 08:24:50 Snoring 99015973 R06.83 Migraine without aura 56 495142 G43.009 Anterior i schemic optic neuropathy of right eye 9579039503 8260256 H47.540 [id number] LEANNA RIVERA MD [address] [address] 07/27/2018 09:15:54 07/30/2018 15:10:11 Adult health examination 141936816 Z00.00 Discussed routine health and wellness issues. Discussed routine screening as below. Discussed the importance of a healthy lifestyle that includes using common safety devices such as seatbelts and fire alarms, having a healthy diet with plenty of fiber and whole vegetables , being well hydrated and drinking plenty of water, and staying active with a routine excercise routine. Screening for malignant neoplasm of colon 896897741 Z12.11 COLONOSCOP Y: 04/06/2017 ; 1 Plyp; 5 Yr Rpt DUE: 04/07/22 Screening for malignant neoplasm of breast 087176319 Z12.31 New Sx of Lump in Left breast Menopause 750195641 Z78. 0 Past due, will order today. Patient is agreeable. She is high risk. Screening for cardiovascular system disease 163721172 Z13.6 CT AP W/o for Kidney stones in 03/2017 Documented normal Caliber Aorta Tobacco de pendence syndrome 80725612 F17.290 Continued to encourage smoking cessation. History of smoking 07864 04036 3554674 Z87.891 Counseled patient regarding lung cancer screening with low dose CT. Patient has not had LDCT lung cancer screening in the past and she is interested in starting this.l At [facility] risk for falls 627655699 Z91.81 Recommende d vitamin D3 and [facility]. Discussed the importance of fall prevention keeping the floors free of tripping hazards including throw rugs and debris, and using safety rails. Screening for disorder 666991124 Z13.9 Dementia Screening Performed Mastodynia of left breast 2221873488 8373478 N64.4 Her exam demonstrat es some mixed features. There is some tender soft tissue edema and fibrocysti c tiss in the area. The area is definitely very tender. Remarkably so. We are going to proceed with a diagnostic workup on that same side. Screening for osteoporosis 004128400 Z13.820 DEXA ordered today. Restless legs 98048138 G 25.81 Controlled with low-dose ropinirole . Continue current regimen. Generalize d anxiety disorder 70701416 F41.1 FLORY: 07/23/18; UDS: 06/26/18: CSA: 06/26/18 Patient is continuing to tolerate these medicines well. She is not having somnolence , confusion, or adverse affects. Her emotional decompensa tion from late last year is resolved. Migraine without aura 56 384828 G43.009 We are going to treat her today for her acute symptoms. I am hopeful that she will respond as she has in the past. I am agreeable with her resuming her Topamax. I do thinks she should touch base with her neurologis t regarding this issue. Hot sweats 098568311 R61 07-27-2018 T3, total 116.0 normal T4,free 0.84 low TSH 1.700 normal ESR, automated 51 high [id number] MADDIE FELICIANO [facility] [address] [place] [address] 08/17/2018 10:09:15 08/17/2018 11:47:25 Menopausal syndrome 573379751 N95.8 [id number] LEANNA DAVIDSON MD NE[facility]OLOG[facility] [address] [place] [address] 08/24/2018 13:40:50 08/24/2018 15:01:43 Migraine without aura 70882761 G43.009 Non-arteri tic ischemic optic neuropathy 871017381 H47.218 [id number] LEANNA RIVERA MD [facility] [address] [place] [address] 09/26/2018 08:50:20 10/01/2018 09:36:41 Tobacco dependence syndrome 25439563 F17.290 Continued to encourage smoking cessation. History of smoking 14891 31185 2321025 Z87.891 Counseled patient regarding lung cancer screening with low dose CT. Patient has not had LDCT lung cancer screening in the past and she is interested in starting this.l Generalize d anxiety disorder 78801635 F41.1 FLORY: 07/23/18; UDS: 06/26/18: CSA: 06/26/18 We are going to change her valium to klonopin. Discussed the risks associated with these medicines. Patient is continuing to tolerate these medicines well. She is not having somnolence , confusion, or adverse affects. Her emotional decompensa tion from late last year is resolved. Acute maxi llary sinusitis 36229706 J01.00 I discussed with the patient the etiology and expected course of an acute sinusitis. I discussed the rationale for using antibiotic s in this case. I discussed the appropriat e use and side effects of the antibiotic s.I discussed supportive care with antihistam rivera, decongesta nts, and steroids. I discussed the importance of rest and adequate oral hydration. I discussed with him signs and symptoms of worsening condition that would warrant reassessme nt here in clinic or the emergency department . [id number] LEANNA DAVIDSON MD NEUROLOGY [facility] [address] [place] [address] 10/08/2018 11:23:47 10/08/2018 16:06:38 Chronic intractable migraine without aura 0119477888 87066 G43.376 [id number] LEANNA RIVERA MD [address] [address] 12/27/2018 14:16:02 01/01/2019 13:57:34 Tobacco dependence syndrome 50620963 F17.290 Continued to encourage smoking cessation. History of smoking 81730 44602 4980462 Z87.891 Counseled patient regarding lung cancer screening with low dose CT. Patient has not had LDCT lung cancer screening in the past and she is interested in starting this.l Generalize d anxiety disorder 59635731 F41.1 FLORY: 01/05/19; UDS: 06/26/18: CSA: 06/26/18 We are going to change her valium to klonopin. Discussed the risks associated with these medicines. Patient is continuing to tolerate these medicines well. She is not having somnolence , confusion, or adverse affects. Her emotional decompensa tion from late last year is resolved. Acute maxi llary sinusitis 59919564 J01.00 \ Migraine with aura 29522 06 G43.790 [id number] LEANNA RIVERA MD [address] [address] 03/06/2019 10:03:25 03/08/2019 16:49:56 Bilateral foot joint pain 9713948015 6936991 M79.671 I really think the primary cause for her symptoms is soft tissue strain due to very poor supporting footwear. Discussed the importance of shoes that adequately support and protect the foot with some arch support as well. Discussed powerstep inserts. IMPRESSION : 1. There are mild degenerati ve changes in both feet.Inter preted By: eHber Neumann MDElectron ically Signed By: Heber Neumann MD on 03/06/2019 11:05 AM Type 2 olga ezra mellitus without complication 006050838 E11.9 Not at goal and I will discuss this with her phone review. She has been on januvia and metformin in the past. We may well need to restart these. Will discuss with phone review. 03-06-2019 glyco HGB A1C 7.4 high estimated avg. glucose 166 normal glucose 115 high blood urea nitrogen 9 normal creatinine 0.65 normal BUN/creati nine ratio 14 normal sodium 141 normal potassium 4.1 normal chloride 105 normal carbon dioxide 22 normal anion gap 14 normal calcium 9.0 normal GFR 110 normal GFR non-chrissie n malagasy 95 normal Recurrent major depression 16848968 F33.9 See Above. Cerebrovas cular accident 556305375 I63.9 Nicotine dependence 5629 4008 F17.200 Discussed at length and I congratula gokul the patient regarding her decision to quit smoking. I really believe this is one of this best things she can do to improve her health, functional status, and overall quality of life as well as improve her risk of disease or morbidity. Perhaps this and improve her hydration. Discussed Chantix, the rationale for use, expectatio ns, and side effects. She has tolerated this well in the past so I am hopeful she will again. She has a significan t psychiatri c history. Chronic ob structive pulmonary disease 81095582 J44.9 breathing is at baseline and stable today. No change. Continue to encourage smoking cessation. Generalize d anxiety disorder 81391365 F41.1 FLORY: 03/05/2019; UDS: 06/26/18: CSA: 06/26/18 We are going to change her valium to klonopin. Discussed the risks associated with these medicines. Patient is continuing to tolerate these medicines well. She is not having somnolence , confusion, or adverse affects. Her emotional decompensa tion from late last year is resolved. 06-26-2018 Marijuana (THC50) Negative Cocaine (KAS221) Negative Opiates (LWF3189) Negative Amphetamin e (KSF6481) Negative Methamphet amine (TXS8306) Negative Phencyclid ine (PCP25) Negative Ectasy (CCTQ072) Negative Barbituate s (VQA421) Negative Benzodiaze pines (NPQ178) POSITIVE Methadone (TXO850) Negative Tricyclic Antidepres sants (BUM4604) POSITIVE Oxycodone (UWE344) Negative Internal QC Okay Hypothyroidism 69613550 E03.9 03-06-2019 TSH 1.390 normal T4,free 0.73 low Anemia 697731616 D64.9 03-06-2019 white blood cells 8.2 normal red blood cells 5.29 high hemoglobin 13.4 normal hematocrit 41.0 normal platelet count 236 normal iron 64 normal total iron binding cap. 340 normal unsat.iron binding cap. 276 normal % saturation 19 normal folic acid 17.8 normal vitamin B12 480 normal [id number] LEANNA RIVERA MD [address] [address] 05/07/2019 09:56:14 05/09/2019 12:39:59 Cough 12236645 R05 Has a sore throat 668434 002 J02.9 Acute exac erbation of chronic obstructive pulmonary disease 873665645 J44.1 IMPRESSION : COPD/bronc hitis with increased density in the right middle lobe suggesting infiltrate with atelectasi s Interprete d By: Heber Neumann MD Electronic ally Signed By: Heber Neumann MD on 05/07/2019 11:49 AM [id number] LEANNA RIVERA MD [address] [address] 06/21/2019 11:05:16 06/21/2019 16:08:30 Acute maxillary sinusitis 57242760 J01.00 Seasonal a llergic rhinitis 878619435 J30.2 [id number] GLENNY MAHAN MD ALLERGY [address] [facility] [place] [address] 07/18/2019 08:11:08 07/18/2019 09:05:23 Allergic rhinitis 87621474 J30.9 Perennial with seasonal exacerbati on. Previous testing positive to mold, pollen and dust. we could not perform testing today due to recent zyrtec intake return for allergy testing consider allergy IT as it helped her before. Adverse re action to food 219841453 T78.1XXA we could not perform testing today due to recent zyrtec intake return for allergy testing Adverse re action to drug 70739692 T50.905A avoid pain medicaton containing opioid Recurrent acute sinusitis 104224262 J01.91 anti-aller gy as above recommend allergy IT Chronic ob structive pulmonary disease 57752047 J44.9 continue symbicort 160/4.5 1 puff BID, rinse mouth after use albuterol PRN Cigarette smoker 5578408 7 F17.210 I spent 5 min discussing the risk associated with smoking, which include but not limited to lung cancer, COPD, cardiovasc ular diseases, stroke etc. She tried wellbutrin and chantix, but did not feel that helped. She is down to 1/3 pack a day. I recommend her to quit smoking completely Stress 44946452 Z73.3 she reports lots of stress in life discussed healthy diet, regular exercise and relax technique Gastro-eso phageal reflux disease with esophagitis 795976113 K21.0 she had biopsy done in 2018 and showed chronic inflammati on of esophagus not on any anti-acid medication may need GI evaluation again [id number] GLENNY MAHAN MD ALLERGY [address] [place] [address] 07/22/2019 13:33:11 07/22/2019 14:26:25 Allergic rhinitis 62140331 J30.9 Perennial with seasonal exacerbati on. Previous testing positive to mold, pollen and dust. Today's testing showed positive to mold, tree, grass, ragweed, weed, dog, tobacco leaf and dust mites discussed environmen iram avoidance strategy recommend flonase daily, demonstrat e how to use devide recommend xyzal daily Begin immunother apy. Immunother apy discussed in detail with particular reference to rationale, expectatio ns, precaution s, side effects, and alternativ e therapy. The patient will receive injections in our office. Adverse re action to food 322092931 T78.1XXA negative to food allergy testingdis cussed food eliminatio n and re-introdu ction strategy Adverse re action to drug 60641427 T50.905D avoid pain medicaton containing opioid Recurrent acute sinusitis 211489698 J01.91 anti-aller gy as above recommend allergy IT Chronic ob structive pulmonary disease 00972737 J44.9 continue symbicort 160/4.5 1 puff BID, rinse mouth after use albuterol PRN Gastro-eso phageal reflux disease with esophagitis 855051381 K21.0 she had biopsy done in 2018 and showed chronic inflammati on of esophagus not on any anti-acid medication may need GI evaluation again [id number] GLENNY MAHAN MD ALLERGY [address] [facility],[address] [place] [address] 08/12/2019 09:34:19 08/12/2019 09:35:05 [id number] MADDIE FELICIANO MD [address] [address] 09/03/2019 14:09:42 09/03/2019 14:37:49 [id number] LARISA JOHNSON APRN [address] [address] 7 09/10/2019 12:16:37 09/10/2019 12:40:25 [id number] LEANNA RIVERA MD [address] [address] 7 09/19/2019 15:58:35 09/20/2019 14:51:14 Generalized anxiety disorder 42627986 F41.1 FLORY:06/27; UDS: 06/26/18: CSA: 06/26/18 We are going to change her valium to klonopin. Discussed the risks associated with these medicines. Patient is continuing to tolerate these medicines well. She is not having somnolence , confusion, or adverse affects. Her emotional decompensa tion from late last year is resolved. 06-26-2018 Marijuana (THC50) Negative Cocaine (IME605) Negative Opiates (GQD9026) Negative Amphetamin e (IIB2357) Negative Methamphet amine (ZTY9673) Negative Phencyclid ine (PCP25) Negative Ectasy (BKCZ879) Negative Barbituate s (JUX514) Negative Benzodiaze pines (TGO888) POSITIVE Methadone (SRN226) Negative Tricyclic Antidepres sants (IZV6318) POSITIVE Oxycodone (NKV770) Negative Internal QC Okay Long-term drug therapy 243266750 Z79.899 See Above History of smoking 04869 92722 0545894 Z87.891 Counseled patient regarding lung cancer screening with low dose CT. Patient has not had LDCT lung cancer screening in the past and she is interested in starting this.l Migraine with aura 08690 06 G43.109 Uncontroll ed type 2 diabetes mellitus 153838725 E11.65 Screening for malignant neoplasm of breast 685879540 Z12.31 New Sx of Lump in Left breast Screening for malignant neoplasm of colon 563536741 Z12.11 COLONOSCOP Y: 04/06/2017 ; 1 Plyp; 5 Yr Rpt DUE: 04/07/22 Screening for malignant neoplasm of cervix 273242011 Z12.4 [id number] MADDIE FELICIANO MD [address] [address] 10/02/2019 13:22:15 10/02/2019 13:45:12 [id number] PADMA SESAY MD [address] [address] 10/16/2019 10:51:45 10/16/2019 11:13:04 [id number] LEANNA RIVERA MD [address] [address] 7 10/24/2019 14:54:15 10/24/2019 15:07:14 [id number] LARISA JOHNSON APRN [address] [address] 7 11/06/2019 15:43:02 11/06/2019 15:53:35 [id number] MADDIE FELICIANO MD [address] [address] 7 11/14/2019 13:05:56 11/14/2019 13:15:50 [id number] LEANNA RIVERA MD [address] [address] 7 11/21/2019 12:35:33 11/21/2019 12:54:51 [id number] GLENNY MAHAN MD ALLERGY [address] [facility],[address] [place] [address] 11/25/2019 10:16:23 11/25/2019 14:43:44 Allergic rhinitis 59465870 J30.9 Perennial with seasonal exacerbati on. Previous testing positive to mold, pollen and dust. Today's testing showed positive to mold, tree, grass, ragweed, weed, dog, tobacco leaf and dust mites discussed environmen iram avoidance strategy she could not afford flonase and xyzal recommend to use zyrtec instead ok to use nasacort, samples mailed to her home continue immunother apy at PCP office. She tolerated it well Adverse re action to drug 27392424 T50.905D avoid pain medicaton containing opioid Recurrent acute sinusitis 439691488 J01.91 no sinusitis in between anti-aller gy as above continue allergy IT Chronic ob structive pulmonary disease 57676444 J44.9 doing well continue symbicort 160/4.5 1 puff BID, rinse mouth after use albuterol PRN Gastroesop hageal reflux disease without esophagitis 278627130 K21.9 she had biopsy done in 2018 and showed chronic inflammati on of esophagus not on any anti-acid medication may need GI evaluation again [id number] PADMA SESAY MD [address] [address] 7 11/29/2019 13:04:12 11/29/2019 13:24:36 [id number] PADMA SESAY MD [address] [address] 12/05/2019 12:09:28 12/05/2019 12:23:55 [id number] LEANNA RIVERA MD [address] [address] 12/12/2019 12:57:27 12/12/2019 13:42:17 Generalized anxiety disorder 74573606 F41.1 FLORY:; UDS: 06/26/18: CSA: 06/26/18 Prescripti on # Filled Written Drug Label Qty Days Strength MEDD Prescriber Pharmacy State 7808-10-12 2019-12-02 clonazePAM 90 30 1MG NA Leanna Rivera - [id number] [place] [address] 3138-09-09 2019-10-14 Pregabalin 90 30 100MG FERNANDO Garcia - [id number] [place], [place] [address] 222890 3260-09-04 2019-10-25 clonazePAM 90 30 1MG NA [employer] [id number] [facility] [place] [address] 3144-08-12 2019-09-21 1 Pregabalin 90 30 75MG NA Rian Garcia [id number] [facility] [place] [address]65 0995-08-03 2019-09-23 Gabapentin 120 30 800MG NA Rian Garcia [id number] [facility] [place] [address] 684708 1245-07-30 2019-09-19 clonazePAM 90 30 1MG NA Leanna Rivera Medio [id number] [facility] [place] [address] 2019-08-21 2019-06-21 Gabapentin 120 30 800MG NA Rian Garcia [id number] [facility] [place] [address] 2019-08-21 2019-08-21 clonazePAM 90 30 1MG NA [employer] [id number] [facility] [place] [address] 2019-07-23 1 Gabapentin 120 30 800MG NA Rian Garcia [id number] [facility] [place] faulk[place] 1 Long-term drug therapy 319326823 Z79.899 Uncontroll ed type 2 diabetes mellitus 108011836 E11.65 Migraine with aura 53504 06 G43.109 History of smoking 51572 17532 6470853 Z87.891 Screening for malignant neoplasm of breast 289439467 Z12.31 New Sx of Lump in Left breast Screening for malignant neoplasm of colon 716270873 Z12.11 COLONOSCOP Y: 04/06/2017 ; 1 Plyp; 5 Yr Rpt DUE: 04/07/22 Screening for malignant neoplasm of cervix 054402906 Z12.4 Administra tion of influenza vaccine 15710560 Z23 Memory impairment 093059 006 R41.3 [id number] LARISA JOHNSON APRN [address] [place] [address] 12/26/2019 12:58:33 12/26/2019 13:52:39 [id number] PADMA SESAY MD [address] [place] [address] 01/06/2020 15:23:01 01/06/2020 16:40:44 Herpes zoster 0112876 B02.9 [id number] LEANNA RIVERA MD [address] [place] [address] 01/17/2020 13:26:28 01/17/2020 13:33:57 [id number] LEANNA RIVERA MD [address] [place] [address] 01/23/2020 15:29:54 01/25/2020 19:51:02 Chronic pain syndrome 702289462 G89.4 Migraine 65966516 G43.90 9 Generalize d anxiety disorder 91188669 F41.1 FLORY:; UDS: 06/26/18: CSA: 06/26/18 Prescripti on # Filled Written Drug Label Qty Days Strength MEDD Prescriber Pharmacy State 2317-10-12 2019-12-02 clonazePAM 90 30 1MG NA Leanna [employer]janelle Medio [id number] [facility], [place], [place] [address] 9187-09-09 2019-10-14 Pregabalin 90 30 100MG NA Rian Garcia Medio [id number] [place] [place], [place] [address] 3363-09-04 2019-10-25 clonazePAM 90 30 1MG FERNANDO Garvey [id number] [place], [facility] [place], [place] [address] 0158-08-12 2019-10-01 Pregabalin 90 30 75MG NA Rian Garcia Medio [id number] [facility], [place], [place] [address] 5727-08-03 2019-09-23 Gabapentin 120 30 800MG NA Rian Garvey [id number] [place], [facility] [place], [place] [address]18[address] 7204-07-30 2019-09-19 clonazePAM 90 30 1MG NA Leanna Horse[employer]janelle Medio [id number] [place], [place] [address] 2019-08-21 2019-06-21 Gabapentin 120 30 800MG NA Rian Garcia - [id number] [facility] [place] [address] 2019-08-21 2019-08-21 clonazePAM 90 30 1MG NA Leanna Rivera - [id number] [facility] [place] [address] 2019-07-23 2019-06-21 Gabapentin 120 30 800MG NA Rian Garcia [id number] [facility], [place] 1 [id number] MADDIE FELICIANO MD [address] [place] [address] 01/31/2020 14:33:12 01/31/2020 14:42:36 [id number] LEANNA RIVERA MD [address] [place] [address] 02/10/2020 14:04:40 02/10/2020 14:30:36 [id number] MADDIE FELICIANO MD [address] [facility] [place] [address] 02/25/2020 11:16:29 02/25/2020 11:29:32 [id number] MADDIE FELICIANO MD [address] [place] [address] 03/02/2020 12:43:01 03/02/2020 12:59:45 [id number] LEANNA RIVERA MD [address] [facility] [place] [address] 03/12/2020 09:50:53 03/12/2020 10:53:14 Chronic pain syndrome 484864798 G89.4 FLORY:2 03/12; UDS: 09/19/19: CSA: 09/23/19 QTY DAYS STRENGTH MEDD PRESCRIBER PHARMACY STATE 02-22-2020 clonazePAM 90 30 1MG NA Leanna Anum - [id number] [facility] [place] [address] 02-29-2020 02-28-2020 oxyCODONEH CL/ACETAMI NOPHEN 15 30 5MG-325MG 3.75 Danielkeila Kahn - [id number] [facility] [place] [address] 03-28-2019 12-27-2018 clonazePAM 90 30 1MG NA [employer] [id number] [facility] [place] [address] 03-28-2019 03-28-2019 Gabapentin 120 30 800MG NA [employer] [id number] [facility] [address] [place] [address] 04-24-2019 03-06-2019 clonazePAM 90 30 1MG NA [employer] [id number] [facility] [place] [address] 04-24-2019 03-28-2019 Gabapentin 120 30 800MG NA [employer] [id number] [facility] [place] 1 [address] 05-24-2019 03-28-2019 Gabapentin 120 30 800MG NA [employer] [id number] [facility] [place] [address] 05-25-2019 03-06-2019 clonazePAM 90 30 1MG NA [employer] [id number] [facility] [place] 1 [address] 06-21-2019 03-06-2019 clonazePAM 90 30 1MG NA LeannaKupiKupon [id number] [facility] [place] [address] 06-21-2019 06-21-2019 Gabapentin 120 30 800MG NA [employer] [id number] [place], [place] 1 Migraine 05815784 G43.90 9 Excellent response to recent injection therapy by pain management . Symptoms are essentiall y resolved on current regimen. No change. Generalize d anxiety disorder 75411274 F41.1 FLORY:02/21 03/12; UDS: 09/19/19: CSA: 09/23/19 QTY DAYS STRENGTH MEDD PRESCRIBER PHARMACY STATE 02-22-2020 01-23-2020 clonazePAM 90 30 1MG NA Leanna Mayour [facility] [id number] [facility] [place] 1 [id number] 02-29-2020 02-28-2020 oxyCODONEH CL/ACETAMI NOPHEN 15 30 5MG-325MG 3.75 Danielkeila Kahn - [id number] [facility] [place], [place] [address] 03-28-2019 12-27-2018 clonazePAM 90 30 1MG NA Leanna Mayour [facility] [id number] [facility] [place] 1 [address] 03-28-2019 03-28-2019 Gabapentin 120 30 800MG NA Rian Garcia [id number] [place] [address] 04-24-2019 03-06-2019 clonazePAM 90 30 1MG NA [employer] [id number] [facility] [place] [address] 04-24-2019 03-28-2019 Gabapentin 120 30 800MG NA Rian Garcia [id number] [facility] [place] [address] 05-24-2019 03-28-2019 Gabapentin 120 30 800MG NA Rian Garcia [id number] [facility] [place] [address] 05-25-2019 03-06-2019 clonazePAM 90 30 1MG NA Leanna May Medio [id number] [facility] [place] 1 [address] 06-21-2019 03-06-2019 clonazePAM 90 30 1MG NA Leanna [employer] Medio [id number] [facility] [place] 1 [address] 06-21-2019 06-21-2019 Gabapentin 120 30 800MG Rian Garcia Medio [id number] [facility] [place] 1 MEDS: Klonopin 1mg TID, Elavil 50mg qD, Zoloft 200 daily, Topamax 100 twice a day Uncontroll ed type 2 diabetes mellitus 506093460 E11.65 Since her last visit, the hope had been that her A1c would respond to diet and lifestyle changes to come back into the controlled range. We discussed her weight gain and in specifical ly in conjunctio n with her evolving diabetes. There is a significan t family history. We are going to need to start medicine. I discussed that we would check labs first but anticipate starting metformin. Again, we discussed diet and lifestyle management . I am going to encourage a referral to Dietary as well. 03-12-2020 glyco HGB A1C 7.9 high estimated avg. glucose 180 normal 09-23-2019 glyco HGB A1C 7.2 high estimated avg. glucose 160 normal MEDS: Dyslipidemia 923687517 E 78.5 06-26-2018 HDL cholestero l 38 low triglyceri mariel 133 normal cholestero l 128 normal LDL cholestero l 63 normal MEDS: Lipitor 80 Chronic ob structive pulmonary disease 27541869 J44.9 breathing is at baseline and stable today. No change. Continue to encourage smoking cessation. 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 She is at high risk for cardiovasc ular event. She already has a history of CVA and she continues to smoke and the radicular nature of the symptoms is concerning . f We discussed possible evaluation s and I encouraged but did not insist on stress testing. She wants to defer this for favor of empiric treatment for GERD. She feels her symptoms are reflux related. She understand s that if symptoms are not improving over the next week she should call and I will proceed with ordering ischemic imaging. If symptoms worsen or become more typical in nature, we discussed this, then she should not wait for an appt but call the clinic or go to the ED. EKG was reviewed by myself and normal. History of cerebrovascular accident 796475507 Z86.73 MEDS: Lipitor 80, ASA 81, Restless legs 32719349 G 25.81 Controlled with low-dose ropinirole . Continue current regimen. Gastro-eso phageal reflux disease with esophagitis 436118288 K21.00 See Above. Empiric trial with plan to F/u in 2 weeks. If not improving considerleonardo roman Cardiac evaluation . [id number] MADDIE FELICIANO MD [address] [place] [address] 03/19/2020 14:54:45 03/19/2020 15:26:31 [id number] LEANNA RIVERA MD [address] [address] 03/27/2020 14:27:37 03/27/2020 14:39:30 [id number] LARISA JOSEPHJOSÉ ELIN [address] [address] 04/08/2020 10:55:14 04/08/2020 11:06:08 [id number] LARISA JOSÉ JOHNSONN [address] [address] 7 04/23/2020 13:11:53 04/23/2020 13:25:08 [id number] LARISA JOHNSON APRN [address] [address] 7 05/01/2020 15:24:17 05/01/2020 15:36:35 [id number] LEANNA RIVERA MD [address] [address] 7 05/05/2020 14:33:36 05/05/2020 14:59:51 [id number] LEANNA RIVERA MD [address] [address] 7 05/14/2020 11:32:15 05/14/2020 11:42:14 [id number] PADMA SESAY MD [address] [address] 05/21/2020 11:58:25 05/21/2020 12:09:21 [id number] LARISA JOHNSON APRN [address] [address] 7 05/26/2020 16:22:41 05/26/2020 16:38:21 [id number] LEANNA RIVERA MD [address] [address] 7 05/28/2020 12:28:31 05/28/2020 13:50:47 Gastro-esophageal reflux disease with esophagitis 643806474 K21.00 See Above. Empiric trial with plan to F/u in 2 weeks. If not improving vlad roman Cardiac evaluation . History of cerebrovascular accident 382091127 Z86.73 MEDS: Lipitor 80, ASA 81, Uncontroll ed type 2 diabetes mellitus 029738925 E11.65 started daily metformin after her last visit.rech hung hemoglobin A1c today. Patient is concerned about per system weight gain. Reviewing her recent biometrics it's really more appropriat baldomero difficulty losing weight. May consider adding a GLP-1 agonist for both weight management and treatment of diabetes. She's had some bloating and upper GI symptoms associated with the metformin and so these might be better as well. We'll discuss with phone review. 03-12-2020 glyco HGB A1C 7.9 high estimated avg. glucose 180 normal 09-23-2019 glyco HGB A1C 7.2 high estimated avg. glucose 160 normal MEDS: Generalize d anxiety disorder 91604914 F41.1 FLORY:05/28; UDS: 09/19/19: CSA: 09/23/19 MEDS: Klonopin 1mg TID, Elavil 50mg qD, Zoloft 200 daily, Topamax 100 twice a day Dyslipidemia 466857225 E 78.5 06-26-2018 HDL cholestero l 38 low triglyceri mariel 133 normal cholestero l 128 normal LDL cholestero l 63 normal MEDS: Lipitor 80 Chronic ob structive pulmonary disease 77296130 J44.9 breathing is at baseline and stable today. No change. Continue to encourage smoking cessation. MEDS: Trelegy, Albuterol Chronic pain syndrome 37 1257595 G89.4 FLORY:02/21 03/12; UDS: 09/19/19: CSA: 09/23/19 Migraine 35341298 G43.90 9 Restless legs 47161318 G 25.81 Controlled with low-dose ropinirole . Continue current regimen. [id number] LEANNA RIVERA MD [address] [address] 06/03/2020 13:21:39 06/03/2020 13:40:43 [id number] DOLLY BROWN PA-C SAME DAY [address] [address] 06/05/2020 13:18:42 06/05/2020 15:04:52 Cough 02154537 R05 Acute exac erbation of chronic obstructive pulmonary disease 297987204 J44.1 Suspect COPD exacerbati on but cannot rule out COVID 19 Will send COVID 19 swab today. If positive and test returned within 10 days she would be a candidate for infusion. O2 92% on RA here with mild dyspnea Will start prednisone and doxycyclin e She will return for shortness of breath, fever, worsening symptoms Continue mucinex [id number] LARISA JOHNSON APRN [address] [address] 06/08/2020 14:33:44 06/08/2020 14:46:43 [id number] LEANNA RIVERA MD [address] [address] 06/17/2020 09:44:50 06/17/2020 15:05:06 Uncontrolled type 2 diabetes mellitus 976082062 E11.65 03-12-2020 glyco HGB A1C 7.9 high estimated avg. glucose 180 normal 09-23-2019 glyco HGB A1C 7.2 high estimated avg. glucose 160 normal MEDS: Seasonal a llergic rhinitis 690679288 J30.2 Migraine 38720672 G43.90 9 Neck pain 01891147 M54.2 undergoing injection therapy with Dr. Kahn tomorrow. Hospital i npatient stay within past 30 days 5202497014 106 Z76.89 [id number] LEANNA RIVERA MD [address] [address] 06/22/2020 11:33:09 06/22/2020 11:42:10 [id number] SAÚL SIMEON PA-C SAME DAY [address] [address] 7 06/26/2020 13:53:02 06/26/2020 15:36:35 Nausea and vomiting 93459812 R11.2 Dehydration 77643325 E86 .0 [id number] PADAM SESAY MD [address] [address] 7 06/30/2020 11:46:20 06/30/2020 11:57:06 [id number] MADDIE FELICIANO MD [address] [address] 7 07/06/2020 13:35:16 07/06/2020 13:47:14 [id number] LEANNA RIVERA MD [address] [address] 7 07/10/2020 14:38:47 07/10/2020 14:52:05 [id number] LEANNA RIVERA MD [address] [address] 7 07/21/2020 14:36:15 07/21/2020 15:19:45 Uncontrolled type 2 diabetes mellitus 403762837 E11.65 at her last visit we had been concerned about her worsening hemoglobin A1c. We had started her on Trulicity: 05/28/20: HEMOGLOBIN A1C = 7.8 03-12-2020 glyco HGB A1C 7.9 high estimated avg. glucose 180 normal 09-23-2019 glyco HGB A1C 7.2 high estimated avg. glucose 160 normal MEDS: Migraine 26729711 G43.90 9 Seasonal a llergic rhinitis 586983802 J30.2 Neck pain 03479870 M54.2 undergoing injection therapy with Dr. Kahn tomorrow. Generalize d anxiety disorder 02727629 F41.1 FLORY:05/28; UDS: 09/19/19: CSA: 09/23/19 MEDS: Klonopin 1mg TID, Elavil 50mg qD, Zoloft 200 daily, Topamax 100 twice a day Abdominal pain 21522199 R10.9 Essential hypertension 57171354 I10 03/12/20: CREATININE = 0.63, GFR = 95 HEMOGLOBIN = 13.4, HEMATOCRIT = 41.2, PLATELET 225, THE VBC = 8 point Neuropathy 633836636 G62 .9 Hypothyroidism 83315855 E03.9 03-06-2019 TSH 1.390 normal T4,free 0.73 low [id number] PADMA SESAY MD [address] [address] 07/24/2020 09:32:04 07/24/2020 09:40:06 [id number] MADDIE FELICIANO MD [address] [place], [place] [address] 07/29/2020 12:31:25 07/29/2020 12:47:52 [id number] MADDIE FELICIANO MD [address] [place], [place] [address] 08/04/2020 13:14:46 08/04/2020 13:31:10 [id number] MADDIE FELICIANO MD [address] [place], [place] [address] 08/06/2020 15:03:22 08/06/2020 15:22:36 [id number] PADMA SESAY MD [address] [place], [place] [address] 7 08/18/2020 13:40:23 08/18/2020 13:55:01 [id number] LEANNA RIVERA MD [address] [place], [place] [address] 08/26/2020 09:52:37 08/27/2020 14:50:52 Uncontrolled type 2 diabetes mellitus 325825582 E11.65 at her last visit we had been concerned about her worsening hemoglobin A1c. We had started her on Trulicity: 07/21/20: Hemoglobin A1c = 7.7 05/28/20: HEMOGLOBIN A1C = 7.8 03-12-2020 glyco HGB A1C 7.9 high estimated avg. glucose 180 normal 09-23-2019 glyco HGB A1C 7.2 high estimated avg. glucose 160 normal MEDS: Metformin 750 BID, Trulicity 3mg Weekly Generalize d anxiety disorder 78471439 F41.1 FLORY:08/27; UDS: 09/19/19: CSA: 09/23/19 Anxiety is stable on her current regimen.ME DS: Klonopin 1mg TID, Elavil 50mg qD, Zoloft 200 daily, Topamax 100 twice a day Migraine 66550897 G43.90 9 07/21/20:CRE ATININE = 0.70, BUN = 4, GFR = 92, GLUCOSE = 91TSH =1.47AST = 19, ALP = 18, TOTAL BILIRUBIN = <0.2,LIPAS E/AMYLASE = normalHEMO GLOBIN = 13.7, HEMATOCRIT = 42.4, WBC = 8.0, PLATELETS = 234B12/FOL ATE = normal Neck pain 30627511 M54.2 Continuing to follow with Pain management . She is not wanting to go back to Neurology for now. She does not believe that she will be able to afford injections which is what they had recommende d. Essential hypertension 81066889 I10 03/12/20: CREATININE = 0.63, GFR = 95 HEMOGLOBIN = 13.4, HEMATOCRIT = 41.2, PLATELET 225, THE VBC = 8 point Neuropathy 485291874 G62 .9 Hypothyroidism 43728279 E03.9 03-06-2019 TSH 1.390 normal T4,free 0.73 low [id number] MADDIE FELICIANO MD [address] [address] 09/03/2020 10:18:09 09/03/2020 10:29:17 [id number] LEANNA RIVERA MD [address] [address] 09/10/2020 11:52:41 09/10/2020 12:05:23 [id number] LEANNA RIVERA MD [address] [address] 09/15/2020 09:09:57 09/15/2020 09:22:57 [id number] MADDIE FELICIANO MD [address] [address] 7 09/22/2020 10:37:36 09/22/2020 10:50:55 [id number] PADMA SESAY MD [address] [address] 7 10/01/2020 11:42:16 10/01/2020 11:50:00 [id number] TERESA ARANDA PA-C SAME DAY [address] [address] 7 10/08/2020 09:43:48 10/08/2020 13:10:25 Headache 32989980 R51.9 Encouraged hydration, dark/cool/ quiet room. Keep neurology appointmen t. Go to ER if symptoms persist/wo rsen. [id number] LARISA JOHNSON APRN [address] [address] 7 10/23/2020 11:25:52 10/23/2020 11:42:37 [id number] LEANNA RIVERA MD [address] [address] 7 10/27/2020 09:40:28 10/28/2020 16:14:23 Migraine 41721350 G43.909 07/21/20:CRE ATININE = 0.70, BUN = 4, GFR = 92, GLUCOSE = 91TSH =1.47AST = 19, ALP = 18, TOTAL BILIRUBIN = <0.2,LIPAS E/AMYLASE = normalHEMO GLOBIN = 13.7, HEMATOCRIT = 42.4, WBC = 8.0, PLATELETS = 234B12/FOL ATE = normal Uncontroll ed type 2 diabetes mellitus [id number] E11.65 Started patient on Trulicity earlier in the spring. A1c trending down at last F/u.07/21/20 : Hemoglobin A1c = 7.7 05/28/20: HEMOGLOBIN A1C = 7.8 03-12-2020 glyco HGB A1C 7.9 high estimated avg. glucose 180 normal 09-23-2019 glyco HGB A1C 7.2 high estimated avg. glucose 160 normal MEDS: Metformin 750 BID, Trulicity 3mg Weekly Generalize d anxiety disorder [id number] F41.1 FLORY:08/27; UDS: 09/19/19: CSA: 09/23/19 Anxiety is stable on her current regimen.ME DS: Klonopin 1mg TID, Elavil 50mg qD, Zoloft 200 daily, Topamax 100 twice a day Neck pain [id number] M54.2 Continuing to follow with Pain management . She is not wanting to go back to Neurology for now. She does not believe that she will be able to afford injections which is what they had recommende d. Essential hypertension [id number] I10 BP: 102/62, at goal 10/19/2020: BP at ED was 121/71 07/21/2020: CREATININE = 0.7, BUN = 4, GLUCOSE = 91, (CMP = essentiall y normal) CBC = normal (low MCV) 03/12/20: CREATININE = 0.63, GFR = 95 HEMOGLOBIN = 13.4, HEMATOCRIT = 41.2, PLATELET 225, THE VBC = 8 point Neuropathy 291325682 G62 .9 Hypothyroidism 04803591 E03.9 07/21/2020: TSH = 1.47 03-06-2019 TSH 1.390 normal T4,free 0.73 low Dyslipidemia 966295506 E 78.5 03/12/2020: TOTAL CHOLESTERO L = 147, LDL = 67, HDL = 37, TRIGLYCERI MARIEL = 217 06-26-2018 HDL cholestero l 38 low triglyceri mariel 133 normal cholestero l 128 normal LDL cholestero l 63 normal MEDS: Lipitor 80 Gastroesop hageal reflux disease without esophagitis [id number] K21.9 Restless legs 11826028 G 25.81 Controlled with low-dose ropinirole . Continue current regimen. Chronic ob structive pulmonary disease 61770555 J44.9 breathing is at baseline and stable today. No change. Continue to encourage smoking cessation. MEDS: Trelegy, Albuterol [id number] GLENNY MAHAN MD ALLER[facility] [address] [facility],[address] [place] [address] 10/28/2020 12:17:11 10/30/2020 15:22:59 [id number] PADMA SESAY MD [address] [address] 11/02/2020 14:38:47 11/02/2020 14:51:32 [id number] PADMA SESAY MD [address] [address] 11/16/2020 09:58:21 11/16/2020 10:13:45 [id number] MADDIE FELICIANO MD [address] [address] 11/23/2020 11:21:00 11/23/2020 11:42:05 [id number] GRAEME TESHA GARRETT DO [address] [address] 01/07/2021 14:05:18 01/07/2021 14:16:31 [id number] MADDIE FELICIANO MD [address] [address] 01/19/2021 15:11:27 01/19/2021 15:21:32 [id number] LEANNA RIVERA MD [address] [address] 01/26/2021 09:48:43 01/27/2021 15:37:54 Restless legs 58403746 G25.81 Increasing ropinorolo le. Migraine 56610381 G43.90 9 07/21/20:CRE ATININE = 0.70, BUN = 4, GFR = 92, GLUCOSE = 91TSH =1.47AST = 19, ALP = 18, TOTAL BILIRUBIN = <0.2,LIPAS E/AMYLASE = normalHEMO GLOBIN = 13.7, HEMATOCRIT = 42.4, WBC = 8.0, PLATELETS = 234B12/FOL ATE = normal Uncontroll ed type 2 diabetes mellitus 323376554 E11.65 Started patient on Trulicity earlier in the spring. A1c trending down at last F/u.07/21/20 : Hemoglobin A1c = 7.7 05/28/20: HEMOGLOBIN A1C = 7.8 03-12-2020 glyco HGB A1C 7.9 high estimated avg. glucose 180 normal 09-23-2019 glyco HGB A1C 7.2 high estimated avg. glucose 160 normal MEDS: Metformin 750 BID, Trulicity 3mg Weekly Generalize d anxiety disorder 53560679 F41.1 FLORY:08/27; UDS: 09/19/19: CSA: 09/23/19 Anxiety is stable on her current regimen.ME DS: Klonopin 1mg TID, Elavil 50mg qD, Zoloft 200 daily, Topamax 100 twice a day Neck pain 64876450 M54.2 Continuing to follow with Pain management . She is not wanting to go back to Neurology for now. She does not believe that she will be able to afford injections which is what they had recommende d. Essential hypertension 80428467 I10 BP: 102/62, at goal 10/19/2020: BP at ED was 121/71 07/21/2020: CREATININE = 0.7, BUN = 4, GLUCOSE = 91, (CMP = essentiall y normal) CBC = normal (low MCV) 03/12/20: CREATININE = 0.63, GFR = 95 HEMOGLOBIN = 13.4, HEMATOCRIT = 41.2, PLATELET 225, THE VBC = 8 point Neuropathy 655572335 G62 .9 Hypothyroidism 27011023 E03.9 07/21/2020: TSH = 1.47 03-06-2019 TSH 1.390 normal T4,free 0.73 low Dyslipidemia 346010892 E 78.5 03/12/2020: TOTAL CHOLESTERO L = 147, LDL = 67, HDL = 37, TRIGLYCERI MARIEL = 217 06-26-2018 HDL cholestero l 38 low triglyceri mariel 133 normal cholestero l 128 normal LDL cholestero l 63 normal MEDS: Lipitor 80 Gastroesop hageal reflux disease without esophagitis [id number] K21.9 Chronic ob structive pulmonary disease 68495180 J44.9 breathing is at baseline and stable today. No change. Continue to encourage smoking cessation. MEDS: Trelegy, Albuterol [id number] MADDIE FELICIANO MD [address] [address] 02/02/2021 15:08:14 02/02/2021 15:20:24 [id number] PADMA SESAY MD [address] [address] 02/10/2021 09:53:26 02/10/2021 10:41:21 [id number] PADMA SESAY MD [address] [address] 02/22/2021 11:32:24 02/22/2021 11:44:01 [id number] LEANNA RIVERA MD [address] [address] 03/30/2021 08:09:42 03/31/2021 09:26:29 Type 2 diabetes mellitus without complication 677330187 E11.9 Not at goal and I will discuss this with her phone review. She has been on januvia and metformin in the past. We may well need to restart these. Will discuss with phone review. 03-06-2019 glyco HGB A1C 7.4 high estimated avg. glucose 166 normal glucose 115 high blood urea nitrogen 9 normal creatinine 0.65 normal BUN/creati nine ratio 14 normal sodium 141 normal potassium 4.1 normal chloride 105 normal carbon dioxide 22 normal anion gap 14 normal calcium 9.0 normal GFR 110 normal GFR non-chrissie n malagasy 95 normal Subclinica l hypothyroidism 29341785 E02 [id number] RAHUL [place] PA-C SAME DAY [address] [address] 04/12/2021 08:58:47 04/16/2021 07:09:19 Fall R29.6 Injury of head 58411268 S09.90XA Dizziness 725450848 R42 At [facility] ed risk of polypharmacy 762879519 Z91.89 [id number] FREDIS HERNANDEZ MD [address] [address] 04/20/2021 09:48:02 04/22/2021 16:20:56 Orthostatic hypotension 14210032 I95.1 Subclinica l hypothyroidism 76410651 E02 Dizziness 581012684 R42 Nausea and vomiting 1692 1999 R11.2 Migraine 90550693 G43.90 9 worseningt akes topomax, Emgalityfo llows with neurology Restless legs 70987332 G 25.81 was previously on requipstop ped due to sedation/d izziness Headache 55447115 R51.9 CT head normalstil l severe headache after recurrent fallsnause a and vomiting Dehydration 63676623 E86 .0 will return to clinic tomorrow for IVF [id number] FREDIS HERNANDEZ MD [address] [address] 04/21/2021 13:26:31 04/23/2021 08:57:18 Nausea 824823252 R11.0 Nausea and vomiting 1693 1999 R11.2 improved [id number] LEANNA RIVERA MD [address] [address] 05/10/2021 09:31:01 05/10/2021 09:43:53 [id number] GLENNY MAHAN MD [facility] [address] [facility],[address] [place] [address] 05/11/2021 15:24:10 05/12/2021 15:50:25 [id number] FREDIS HERNANDEZ MD [address] [address] 05/18/2021 12:45:30 05/18/2021 13:30:45 [id number] LEANNA RIVERA MD [address] [address] 06/10/2021 12:43:10 06/14/2021 16:58:28 Type 2 diabetes mellitus without complication [id number] E11.9 With regards to her diabetes, my sense is that much of her weakness and her dizziness and her presyncope may be related to episodes of hypoglycem ia. Given her weight loss and her borderline nutritiona l level I think that she will be better off to reconsider the Trulicity. Working to hold it for 6 weeks. I am going to see her back in 6 weeks. We will see how she is doing at that time. If she is doing well, may consider restarting the Trulicity at significan tly lower dose. She may be better to do the 0.75 mg or the 1.5 mg moving forward. 03-06-2019 glyco HGB A1C 7.4 high estimated avg. glucose 166 normal glucose 115 high blood urea nitrogen 9 normal creatinine 0.65 normal BUN/creati nine ratio 14 normal sodium 141 normal potassium 4.1 normal chloride 105 normal carbon dioxide 22 normal anion gap 14 normal calcium 9.0 normal GFR 110 normal GFR non-chrissie n malagasy 95 normal Subclinica l hypothyroidism 29479522 E02 Generalize d anxiety disorder 45552275 F41.1 FLORY:08/27; UDS: 09/19/19: CSA: 09/23/19 Anxiety is stable on her current regimen.MN DS: Klonopin 1mg TID, Elavil 50mg qD, Zoloft 200 daily, Topamax 100 twice a day Essential hypertension 41059252 I10 BP: 100/60, low, 10/19/2020: BP at ED was 121/71 07/21/2020: CREATININE = 0.7, BUN = 4, GLUCOSE = 91, (CMP = essentiall y normal) CBC = normal (low MCV) 03/12/20: CREATININE = 0.63, GFR = 95 HEMOGLOBIN = 13.4, HEMATOCRIT = 41.2, PLATELET 225, THE VBC = 8 point Chronic ob structive pulmonary disease 15128596 J44.9 breathing is at baseline and stable today. No change. Continue to encourage smoking cessation. MEDS: Trelegy, Albuterol [id number] LEANNA RIVERA MD [address] [address] 05/28/2021 11:51:05 06/01/2021 11:17:50 [id number] PAMDA SESAY MD [address] [address] 06/28/2021 10:14:19 06/28/2021 10:25:15 [id number] LEANNA RIVERA MD [address] [address] 07/07/2021 08:55:28 07/14/2021 15:08:27 Essential hypertension 49409857 I10 BP: 100/60, low, 10/19/2020: BP at ED was 121/71 07/21/2020: CREATININE = 0.7, BUN = 4, GLUCOSE = 91, (CMP = essentiall y normal) CBC = normal (low MCV) 03/12/20: CREATININE = 0.63, GFR = 95 HEMOGLOBIN = 13.4, HEMATOCRIT = 41.2, PLATELET 225, THE VBC = 8 point Chronic ob structive pulmonary disease 00384252 J44.9 breathing is at baseline and stable today. No change. Continue to encourage smoking cessation. MEDS: Trelegy, Albuterol Generalize d anxiety disorder 20392746 F41.1 FLORY:08/27; UDS: 09/19/19: CSA: 09/23/19 Anxiety is stable on her current regimen.ME DS: Klonopin 1mg TID, Elavil 50mg qD, Zoloft 200 daily, Topamax 100 twice a day Spasm of back muscles 20 3481272 M62.830 Discussed the etiology and expected course of back pain due to muscle spasms. Discussed initial conservati ve care with gentle stretching /ROM exercises. Discussed the appropriat e use of NSAIDs/George roids as ordered. Discussed signs and symptoms of worsening or more serious conditions that would warrant reassessme nt in clinic or ED. Migraine 78963487 G43.90 9 07/21/20:CRE ATININE = 0.70, BUN = 4, GFR = 92, GLUCOSE = 91TSH =1.47AST = 19, ALP = 18, TOTAL BILIRUBIN = <0.2,LIPAS E/AMYLASE = normalHEMO GLOBIN = 13.7, HEMATOCRIT = 42.4, WBC = 8.0, PLATELETS = 234B12/FOL ATE = normal [id number] LEANNA RIVERA MD [address] [address] 07/13/2021 10:02:29 07/13/2021 10:15:04 [id number] LEANNA RIVERA MD [address] [address] 07/26/2021 13:38:30 07/30/2021 13:05:59 Generalized anxiety disorder 03962259 F41.1 FLORY:08/27; UDS: 09/19/19: CSA: 09/23/19 Anxiety is stable on her current regimen.ME DS: Klonopin 1mg TID, Elavil 50mg qD, Zoloft 200 daily, Topamax 100 twice a day Type 2 olga betes mellitus without complication 884472665 E11.9 She describes that since the past several weeks she has had increased fluctuatio n and lability as well as generally high fingerstic k blood sugar readings. Frequently , in the upper 100s when fasting. She would be interested in restarting the Trulicity because she tolerated it well at lower doses with good response. However, she had complicati ons due to weight loss, low blood pressure, low blood glucose, and so we had held the medication about 2 or 3 months ago. 06/10/2021: A1C = 6.001-15-2 020 1: A1C = 7.4 Migraine with aura 05824 06 G43.109 Essential hypertension 72098358 I10 BP: 100/60, low, 10/19/2020: BP at ED was 121/71 07/21/2020: CREATININE = 0.7, BUN = 4, GLUCOSE = 91, (CMP = essentiall y normal) CBC = normal (low MCV) 03/12/20: CREATININE = 0.63, GFR = 95 HEMOGLOBIN = 13.4, HEMATOCRIT = 41.2, PLATELET 225, THE VBC = 8 point Chronic ob structive pulmonary disease 56082210 J44.9 breathing is at baseline and stable today. No change. Continue to encourage smoking cessation. MEDS: Trelegy, Albuterol Spasm of back muscles 20 1225923 M62.830 Discussed the etiology and expected course of back pain due to muscle spasms. Discussed initial conservati ve care with gentle stretching /ROM exercises. Discussed the appropriat e use of NSAIDs/George roids as ordered. Discussed signs and symptoms of worsening or more serious conditions that would warrant reassessme nt in clinic or ED. Migraine 31392654 G43.90 9 07/21/20:CRE ATININE = 0.70, BUN = 4, GFR = 92, GLUCOSE = 91TSH =1.47AST = 19, ALP = 18, TOTAL BILIRUBIN = <0.2,LIPAS E/AMYLASE = normalHEMO GLOBIN = 13.7, HEMATOCRIT = 42.4, WBC = 8.0, PLATELETS = 234B12/FOL ATE = normal [id number] MADDIE FELICIANO MD [address] [address] 08/05/2021 13:48:15 08/05/2021 14:37:48 [id number] FRDEIS HERNANDEZ MD [address] [address] 08/19/2021 09:12:01 08/19/2021 10:28:17 [id number] LEANNA RIVERA MD [address] [address] 09/02/2021 09:18:45 09/02/2021 09:48:13 [id number] LEANNA RIVERA MD [address] [place] [address] 09/06/2021 09:20:07 09/08/2021 14:19:28 Generalized anxiety disorder 41362295 F41.1 FLORY:08/27; UDS: 09/19/19: CSA: 09/23/19 Anxiety is stable on her current regimen.ME DS: Klonopin 1mg TID, Elavil 50mg qD, Zoloft 200 daily, Topamax 100 twice a day Type 2 olga betes mellitus without complication 816482425 E11.9 06/10/2021: A1C = 6.001-15-2 020 1: A1C = 7.4 Migraine with aura 51300 06 G43.109 Essential hypertension 66022461 I10 BP:06/11/19 22: CREATININE = 0.61, GFR = 96, GLUCOSE = 92, CBC = normal10/19: BP at ED was 121/71 07/21/2020: CREATININE = 0.7, BUN = 4, GLUCOSE = 91, (CMP = essentiall y normal)CBC = normal (low MCV) 03/12/20: CREATININE = 0.63, GFR = 95 HEMOGLOBIN = 13.4, HEMATOCRIT = 41.2, PLATELET 225, THE VBC = 8 point Chronic ob structive pulmonary disease 25669499 J44.9 breathing is at baseline and stable today. No change. Continue to encourage smoking cessation. MEDS: Trelegy, Albuterol Spasm of back muscles 20 4249527 M62.830 Discussed the etiology and expected course of back pain due to muscle spasms. Discussed initial conservati ve care with gentle stretching /ROM exercises. Discussed the appropriat e use of NSAIDs/George roids as ordered. Discussed signs and symptoms of worsening or more serious conditions that would warrant reassessme nt in clinic or ED. Migraine 46056461 G43.90 9 Screening for malignant neoplasm of colon 470644157 Z12.11 COLONOSCOP Y: 04/06/2017 ; 1 Plyp; 5 Yr Rpt DUE: 04/07/22 [id number] NIRMAL DODGE APRN [address] [place] [address] 09/15/2021 08:51:17 09/15/2021 09:11:34 [id number] LEANNA RIVERA MD [address] [place] [address] 10/20/2021 10:42:29 10/22/2021 08:49:25 Generalized anxiety disorder 28448099 F41.1 FLORY:Anx humble is stable on her current regimen.ME DS: Klonopin 1mg TID, Elavil 50mg qD, Zoloft 200 daily, Topamax 100 twice a day Type 2 olga betes mellitus without complication 151044414 E11.9 09/06/2021: A1C = 6.44/ 22: A1C = 6.001-15-2 020 1: A1C = 7.4 Migraine with aura 95219 06 G43.109 Essential hypertension 84245023 I10 BP:111/76 09/06/2021: CREATININE = 0.71, GFR = 95, GLUCOSE = 108, CBC = normal06/10: CREATININE = 0.61, GFR = 96, GLUCOSE = 92, CBC = normal10/19: BP at ED was 121/71 07/21/2020: CREATININE = 0.7, BUN = 4, GLUCOSE = 91, (CMP = essentiall y normal)CBC = normal (low MCV) 03/12/20: CREATININE = 0.63, GFR = 95 HEMOGLOBIN = 13.4, HEMATOCRIT = 41.2, PLATELET 225, THE VBC = 8 point Chronic ob structive pulmonary disease 52863789 J44.9 breathing is at baseline and stable today. No change. Continue to encourage smoking cessation. MEDS: Trelegy, Albuterol Spasm of back muscles 20 9452952 M62.830 Discussed the etiology and expected course of back pain due to muscle spasms. Discussed initial conservati ve care with gentle stretching /ROM exercises. Discussed the appropriat e use of NSAIDs/George roids as ordered. Discussed signs and symptoms of worsening or more serious conditions that would warrant reassessme nt in clinic or ED. Migraine 32535229 G43.90 9 Screening for malignant neoplasm of colon 876009705 Z12.11 COLONOSCOP Y: 04/06/2017 ; 1 Plyp; 5 Yr Rpt DUE: 04/07/22 Dysuria-fr equency syndrome 0231928 R30.0 Ulcer of s kin or mucosa 371177535 L98.499 Nicotine dependence 5629 4008 F17.200 Discussed at length and I congratula gokul the patient regarding her decision to quit smoking. I really believe this is one of this best things she can do to improve her health, functional status, and overall quality of life as well as improve her risk of disease or morbidity. Perhaps this and improve her hydration. Discussed Chantix, the rationale for use, expectatio ns, and side effects. She has tolerated this well in the past so I am hopeful she will again. She has a significan t psychiatri c history. [id number] FREDIS HERNANDEZ MD [address] [address] 11/02/2021 10:52:38 11/02/2021 11:23:55 [id number] GLENNY MAHAN MD ALLERGY [address] [facility],[address] [place] [address] 11/04/2021 10:03:50 11/19/2021 16:25:18 [id number] LEANNA RIVERA MD [address] [address] 11/09/2021 11:33:25 11/09/2021 12:02:21 [id number] LEANNA RIVERA MD [address] [address] 04/18/2022 11:04:32 04/18/2022 11:25:22 [id number] LEANNA RIVERA MD [address] [address] 04/26/2022 12:18:16 04/26/2022 15:49:27 Generalized anxiety disorder 04930865 F41.1 FLORY:04/26 appropriat e per her recent history.An xiety is stable on her current regimen.ME DS: Klonopin 1mg BID, Elavil 50mg qD, Zoloft 200 daily, Topamax 100 twice a day Type 2 olga betes mellitus without complication 976001673 E11.9 04/26/2022: A1c = 6.87/ 22: A1C = 6.44/ 22: A1C = 6.001-15-2 020 1: A1C = 7.4 Essential hypertension 08666166 I10 BP:115/80 09/06/2021: CREATININE = 0.71, GFR = 95, GLUCOSE = 108, CBC = normal06/10: CREATININE = 0.61, GFR = 96, GLUCOSE = 92, CBC = normal10/19: BP at ED was 121/71 07/21/2020: CREATININE = 0.7, BUN = 4, GLUCOSE = 91, (CMP = essentiall y normal)CBC = normal (low MCV) 03/12/20: CREATININE = 0.63, GFR = 95 HEMOGLOBIN = 13.4, HEMATOCRIT = 41.2, PLATELET 225, THE VBC = 8 point Chronic ob structive pulmonary disease 24224454 J44.9 breathing is at baseline and stable today. No change. Continue to encourage smoking cessation. MEDS: Trelegy, Albuterol Spasm of back muscles 20 9654035 M62.830 Discussed the etiology and expected course of back pain due to muscle spasms. Discussed initial conservati ve care with gentle stretching /ROM exercises. Discussed the appropriat e use of NSAIDs/George roids as ordered. Discussed signs and symptoms of worsening or more serious conditions that would warrant reassessme nt in clinic or ED. Migraine 27208397 G43.90 9 Screening for malignant neoplasm of colon 973978023 Z12.11 COLONOSCOP Y: 04/06/2017 ; 1 Plyp; 5 Yr Rpt DUE: 04/07/22 Nicotine dependence 5629 4008 F17.200 Discussed at length and I congratula gokul the patient regarding her decision to quit smoking. I really believe this is one of this best things she can do to improve her health, functional status, and overall quality of life as well as improve her risk of disease or morbidity. Perhaps this and improve her hydration. Discussed Chantix, the rationale for use, expectatio ns, and side effects. She has tolerated this well in the past so I am hopeful she will again. She has a significan t psychiatri c history. Mixed anxi ety and depressive disorder 572527005 F41.8 Restless legs 16357594 G 25.81 De-escalat ing requip [id number] MD MOOSE RAO [facility] [address] [place] [address] 05/25/2022 10:51:52 05/25/2022 11:58:00 Vaginal vault prolapse 273133788 N81.89 [id number] SHANE PELAYO MD SURGERY SCHEDULE [address] [place] [address] 05/31/2022 10:11:19 05/31/2022 10:11:44 [id number] MD [facility] [address] [place] [address] 06/08/2022 13:11:56 06/08/2022 14:15:26 Prolapse of female genital organs 58683100 N81.9 We had a very long extensive discussion regarding her situation. We mentioned the use of a pessary. We also discussed surgical correction with robotic sacrocolpo pexy we discussed the use of surgical mask. We discussed potential complicati ons including infection and chronic pain. We discussed that this is typically very rare. We discussed surgical approach as well as potential complicati ons including bleeding and infection. She understand s and wishes to proceed as soon as possible. We discussed that we would be using surgical mesh with this repair. [id number] FELIPE GRIFFITH PA-C [address] [address] 06/17/2022 10:29:54 06/17/2022 12:26:59 Adult health examination 352165457 Z00.00 Patient presented to office today for their Medicare Annual Wellness Visit. Emphasized fall prevention to help reduce health risks and promote healthy living. Discussed the importance of a healthy lifestyle for the improvemen t/maintena nce of overall physical health, the prevention of major morbidity/ disease, and improvemen t of the patient's overall sense of physical and emotional well being. Recommende d a healthy diet that is high in fiber/frui ts/vegetab les, lean proteins, and healthy fats such as fish and nuts. Recommende d a diet that is low in sweets/jte k foods/proc essed & fast foods as well as fried/fatt y foods in general. Recommend ed physical activity as able on most days of the week and recommende d that such a routine be scheduled into the patient's daily routine. Patient was advised to try for 150 minutes of moderate-i ntensity aerobic activity and at least 2 days a week of strength training as able based on AHA recommenda tions. Discussed routine safety concerns and the importance of a healthy circadian sleep routine for promotion of general health. Prevent ative Screenings Mammogram (40-74 yo):Shelley zepeda due.PAP smear (21-65 yo): Patient outisde of recommende d screening guideline. DEXA (65-85 yo): Done in 2018 and was normal. Recommende d f/u in 2028.Colon oscopy (45-75 yo; Medicare only covers from 50 yo): Done May 2022, normal. Recommende d f/u 2027.CT Lung CA Screen (50-80 yo; Medicare only covers up til 77 yo): Patient is a current smoking that reports she has cut down 1/2 pack a day from a pack and a half a day. She reports she smoked a pack and a half for 20 years. She has been smoking 1/2 pack for about 2 months. PVC13 (65 yo): 10/04/2018 Pneumovax 23 (65 yo, if PVC15 given, give 23 at least a year after): Never doneFlu Shot (q1yr): Patient reports she got it at the pharmacy.Z luis (50 yo, Medicare doesn't cover): 10/04/2018 Tetanus Vaccine/Td ap (q10yr. Medicare doesn't cover):Kojo ballard patient update at the pharmacy.H epatitis C Screen (once 18-79 yo): Get with next set of labs. EKG: Will do today.Lipi d Panel: 10/27/2020 , HDL low at 34 and triglyceri mariel high at 245.Fastin g Glucose: August 2011 showed glucose high at 108.Glauco ma Screen: Patient sees an eye doctor at least once a year.Diabe tic Foot Exam: Patient reports her PCP does it once a year. SLUMS score was a 22. Patient reports she has some memory problems like not rememberin g names. Patient denies any abnormal irritation , confusion, aggression , or any hindrance to their quality of life. Screening mammography 24 786430 Z12.31 Will order. Nicotine dependence 5629 4008 Z87.891 Will order today based on patient's smoking history. Depression screening 171 839262 Z13.31 PHQ-2 done and score was 0. No further management needed. Total time spent: 3 minutes. Type 2 olga betes mellitus without complication 325013643 E11.9 Patient's last HgA1C in August 2021 was 6.4% and fasting glucose was 108. Patient takes trulicity for condition. Continue on current dose. Hypertensive disorder 38 788116 I10 Condition stable with no new or worsening symptoms. Patient's blood pressure in the officewas 110/62.Valerie johns is not on pharmacoth erapy for condition and manages with lifestyle measures. Familial c ombined hyperlipidemia 118606231 E78.49 Last lipid panel in 10/27/2020 showed HDL low at 34 and triglyceri mariel high at 245. Patient is on atorvastat in for condition. Continue on current dose. Recommend a f/u lipid panel during next appointmen t. Generalize d anxiety disorder 10405872 F41.1 YEHUDA-7 todaywas 4.Conditio n stable with no new or worsening symptoms. Patient takes clonazepam for condition. Continue on current dose. Chronic ob structive pulmonary disease 07137659 J44.9 Condition stable with no new or worsening symptoms. Patient takes trelegy and albuterol for condition. Continue on current dose. Tobacco Dealupa e cessation education 356814889 Z71.6 Patient reports she is currently trying to quit and has reduced her tobacco use from 1.5 packs a day to 0.5 packs a day. She reports she notices that she gets out of breath more easily and has to use her inhaler way more often than before. Encouraged her to continue working towards complete cessation and informed her of the negative effects of continued tobacco use. Total time: 5 minutes. Environmental allergy 42 [id number] T78.49XD Patient sees Dr. Mahan at [facility]. However, she does her shots here at [facility]. She would like to receive her allergy shot today. Idiopathic osteoarthritis [id number] M19.91 Patient reports worsening arthritic pain in her neck and back recently. She reports that she would like a toradol shot to ease the pain and that it has worked well in the past. Patient's kidney function is fine today so will administer in office. [id number] DANIEL AJCOBSON MD [facility] [address] [place] [address] 07/15/2022 11:17:03 07/15/2022 12:15:48 Prolapse of female genital organs [id number] N81.9 Doing well postop. She will follow-up with me in 6 weeks [id number] FREDIS HERNANDEZ MD [address] [address] 08/18/2022 10:00:43 08/18/2022 11:34:23 Generalized anxiety disorder [id number] F41.1 takes sertraline , clonazepam as neededstab lecontinue medication Dyslipidemia [id number] E 78.5 takes atorvastat inLDL controlled 1contin ue medication Type 2 olga betes mellitus without complication [id number] E11.9 A1c 6.1on Trulicity 0.75mgcont inue medication Pain in left foot 595772 6459 79018 M79.672 likely tendon injuryno fracture on XRrecommen d Aleahll send hydrocodon e for acute pain [id number] CHUNG SHUKLA PA-C [facility] [address] [place] [address] 08/25/2022 10:06:00 08/25/2022 11:20:09 Pain of left ankle joint [id number] 3039931 M25.572 Reviewed xrays of left foot/ankle w/ patient today. Xrays reveal no acute bony abnormalit y/patholog ic process. Likely lateral ankle sprain as cause of pain today.Plan :Aircast given to patient today. WBAT. Frequent ice/elevat ion. hold therapy. If no better in 3 weeks we will have patient come back for recheck and obtain MRI. Sprain of lateral ligament of ankle joint [id number] S93.492A Reviewed xrays of left foot/ankle w/ patient today. Xrays reveal no acute bony abnormalit y/patholog ic process. Likely lateral ankle sprain as cause of pain today.Plan :Aircast given to patient today. WBAT. Frequent ice/elevat ion. hold therapy. If no better in 3 weeks we will have patient come back for recheck and obtain MRI. [id number] CHUNG SHUKLA PA-C [facility] [address] [facility] [place] [address] 10/06/2022 12:06:38 10/06/2022 14:07:34 Closed fracture of distal end of right radius [id number] S52.514A I did independen tly interpret and review x-rays of the patient's right wrist and elbow with her today extensivel y. X-rays reveal mildly displaced fracture of the distal radius with mild dorsal impaction. X-rays of right elbow do not reveal any acute fracture or dislocatio n.Plan:We will place patient into a short arm cast today. Meloxicam prescribed to be taken as needed. Recommende d patient have limited to no use of the right hand/wrist while in a cast. Frequent elevation help with swelling. Discussed that she has any issues with cast to call us immediatel y. Pain of ri ght elbow joint [id number] M25.521 I did independen tly interpret and review x-rays of the patient's right wrist and elbow with her today extensivel y. X-rays reveal mildly displaced fracture of the distal radius with mild dorsal impaction. X-rays of right elbow do not reveal any acute fracture or dislocatio n.Plan:We will place patient into a short arm cast today. Meloxicam prescribed to be taken as needed. Recommende d patient have limited to no use of the right hand/wrist while in a cast. Frequent elevation help with swelling. Discussed that she has any issues with cast to call us immediatel y. [id number] DENA BILLINGS [facility] [address] [place] [address] 10/06/2022 14:23:32 10/06/2022 14:34:57 [id number] LILIANA LUNDBERG MD [facility] [address] [place] [address] 10/20/2022 10:46:54 10/20/2022 11:49:43 Closed fracture of distal end of right radius [id number] 1705043 S52.531A Right extra-dariana cular distal radius fracture (DOI: 09/18/2022) [id number] LUCIO YU JR, OTR/L, CHT PHYSICAL THERAPY / HAND THERAPY [facility] [address] [address] 10/20/2022 13:24:21 10/21/2022 04:06:23 Closed fracture of distal end of right radius [id number] 4254874 S52.501D [id number] LEANNA RIVERA MD [address] [place] [address] 10/21/2022 09:54:17 10/25/2022 04:03:18 Mixed anxiety and depressive disorder [id number] F41.8 It is not ideal that the patient is a fall risk. She has had falls with injury in both the recent and distant past. We have tried de-escalat ing her Klonopin to different medicines on several occasions without success. I think that it is important that we continue to review and discuss the risks and benefits with the patient. I explained to her that she is at increased risk for falling with major or even catastraup hic inury and sedating medicines increase that risk. She understand s this but continues to tolerate the medicine without observable AE and she does not want to change or adjust it. Hyperglycemia 66928346 R 73.9 Peripheral arterial insufficiency [id number] 42169 I73.9 Patient is concerned about increased pain, cramping, and coolness in her feet, worse on her left. We are going to check ROSEMARY and Dulex and evaluate as indicated. Could consider referral for NCS if duplex is without flow restrictin g disease. Generalize d anxiety disorder 86371124 F41.1 takes sertraline , clonazepam as neededstab lecontinue medication Dyslipidemia 976107256 E 78.5 Patient has a history of TIA/CVA and she follows regularly with Neurology for monitoring /managemen t of this as well as her migraines. She is on High intensity Lipitor because of her stroke history. She is tolerating it well. I hope this is not contributi ng to her foot and leg pain because it is a very important medicine in terms of managing her ongoing care and reducing her risk of morbidity and . Type 2 olga munguia mellitus 79659306 E11.51 Patient has a known history of diabtes and her A1c has been as high as 7.9 in the past. She has done very well on Trulicity that was started a couple of years ago. She has not been able to tolerate increasing the dose but her A1c has been well controlled on the lower. Essential hypertension 37325228 I10 BP:115/80 09/06/2021: CREATININE = 0.71, GFR = 95, GLUCOSE = 108, CBC = normal06/10: CREATININE = 0.61, GFR = 96, GLUCOSE = 92, CBC = normal10/19: BP at ED was 121/71 07/21/2020: CREATININE = 0.7, BUN = 4, GLUCOSE = 91, (CMP = essentiall y normal)CBC = normal (low MCV) 03/12/20: CREATININE = 0.63, GFR = 95 HEMOGLOBIN = 13.4, HEMATOCRIT = 41.2, PLATELET 225, THE VBC = 8 point Closed fra cture of distal end of right radius [id number] 4396623 S52.531A Right extra-dariana cular distal radius fracture (DOI: 09/18/2022) Migraine 42199043 G43.90 9 Patient continues to follow regularly with [facility] for managment and monitoring of her longstandi ng migraine headaches. They are prescribin g her Topimate PO and Vypeti infusion every 3 months and the patient reports that these have been effective for her and she is tolerating them well. Taking TPM, Vyepti q 3 mo Chronic ob structive pulmonary disease 93794455 J44.9 breathing is at baseline and stable today. No change. Continue to encourage smoking cessation. MEDS: Trelegy, Albuterol [id number] BEAN FISCHER PA-C [facility] [address] [place] , [place] [address] 11/07/2022 10:21:23 11/07/2022 11:54:24 Closed fracture of distal end of right radius [id number] 8041779 S52.501D Assessment : Follow-up of right distal radius fracture. Plan: Alignment seems stable on repeat x-rays today. Patient would like to go back into a cast, which I find reasonable , we will remain in this for another 3 weeks. Follow-up in 3 weeks for repeat x-rays on arrival out of cast and recheck. [id number] BEAN FISCHER PA-C [facility] [address] [place] [address] 12/01/2022 09:46:39 12/01/2022 11:32:45 Closed fracture of distal end of right radius [id number] S52.501G Assessment : Follow-up of right distal radius fracture. Plan: Dr. Martinez consulted on the case today. Agrees with a CT scan as next best step. She has an Orthoplast custom brace for this wrist that she can use in the meantime. Follow-up after the CT scan to discuss results with Dr. Martinez. [id number] MD [facility] [address] [place] [address] 12/14/2022 12:32:28 12/14/2022 13:33:23 Closed fracture of distal end of right radius 7986969006 4807034 S52.501G Assessment : right distal radius fracture, DOI 10/03/2022 Plan: We reviewed her x-ray imaging in the office, which shows good healing with good alignment. I would not recommend surgical interventi on. D/C the splint and use the wrist as usual. I offered to refer her to OT but she declined. I encouraged her to work on her wrist motion and use a stress ball to work on her wash and greaser strength. I suspect her N/T will improve as her swelling goes down. If her N/T is not improved in x1 month, she should return to the clinic. F/U PRN. 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 Radial sty loid tenosynovitis 62268596 M65.4 Right de Quervain's tenosynovi tis (CSI: 02/16/2023 ) Health Concerns Section Related Observation LastModified by Organization Detai ls LastModified Time None Recorded Concern Status LastModified by Organization Details LastModified Time None Recorded Advance Directives Directive None Recorded Payers Insurance Date Sequence Insurance Name Policy Number Policy Cheng Covered Member ID Cheng Member ID Guarantor Name 03/26/2023 2 [place] FFS/TRADITION AL Cecile Marley [id number] Cecile G Gregg 03/03/2024 1 HU[employer]NA (MEDICARE REPLACEMENT/A DVANTAGE - PPO) Cecile Tracy Gregg [id number] Cecile G Gregg 03/26/2023 1 [employer]NA - GOLD PLUS (MEDICARE REPLACEMENT/A DVANTAGE - HMO) Cecile Tracy Gregg [id number] Cecile G Gregg 03/26/2023 1 AETNA (MEDICARE REPLACEMENT/A DVANTAGE - HMO) [id number] Cecile Tracy Gregg [id number] Cecile Tracy Gregg 03/03/2024 2 [place]/TRADITION [place] Cecile G Gregg [id number] Cecile G Gregg 03/26/2023 1 HUMANA - GOLD PLUS (MEDICARE REPLACEMENT/A DVANTAGE - HMO) Cecile Tracy Gregg [id number] Cecile Tarcy Gregg 03/26/2023 2 HUMANA (POS) Cecile Marley [id number] Cecile G Gregg 03/26/2023 1 [employer]ETNA (MEDICARE REPLACEMENT/A DVANTAGE - PPO) [id number] Cecile Tracy Gregg [id number] Cecile G Gregg 01/15/2020 1 HUMANA (PPO) [id number] Vikash Sandovaltt [id number] Cecile G Gregg 03/26/2023 1 [place] Cecile Tracy Gregg [id number] Cecile Escobedo 03/26/2023 1 [place]MEDICARE REPLACEMENT HMO) [id number] Cecile Escobedo [id number] Cecile Escobedo 03/26/2023 1 HUMANA - GOLD PLUS (MEDICARE REPLACEMENT/A DVANTAGE - HMO) Cecile Escobedo [id number] Cecile Escobedo Notes Date Note Type Note Provider Name and Address Organization Details Recorded Time 10/21/2022 text/html PAFReported bypatient.Diet and Nutrition:healthy diet Fracture Risk:no recent explained fracture Physical Activity:does not exercise on a regular basis Current level of painNo pain: 0/10 Depression Risk:never feels sad, empty, or tearful; no loss of interest in activities; no significant changes in weight;sleep disturbances or insomnia Concentration and Memory:no decreased concentrating ability; no memory lapses or loss; does not forget words Speech/Motor difficulties:no speech difficulties Hearing:loss of hearing: in both ears;getting progressively worse;difficulty hearing over background noise Activities of Daily Living:able to bathe with limited or no assistance; able to contol urination and bowels; able to dress with limited or no assistance; able to feed self with limited or no assistance; able to get out of chair or bed with limited or no assistance; able to groom with limited or no assistance; able to toilet with limited or no assistance Falls Risk Assessment:fall(s) since last visit 3+;dizziness/vertigo ;fear of falling Advance Care Planning (Living Will-POA etc)Advance Directives executed and on file Patient is a 67 YOA female with PMHx of YEHUDA, NIDDMT2, Severe and Recalcitrant Migraines, COPD, and CPS. 10/21/2022: RECHECK/FOOT PAIN:Patient presents for a routine recheck and she is due to refill her medicines including her JACKLYN regulated anxiety medicine. She is tolerating this well and is not wanting to change or adjust the dose. She denies increased somnolence or fatigue. She notes that she is doing much better now that she has moved back to [place]. She states that she is still in the process of finding a local provider in that area. However, I reiterated that I do think she needs to have local PCP as an important part of her care and she agrees to this. She notes that she is having increased pain in her feet, particularly her left foot. She describes pain and cramping that is worse at night and keeps her from sleeping. Sometimes it is cold and sometimes it is burning. She is concerned it could be related to her circulation. Also, the patient is wearing a splint on her right wrist today. When I asked her about this she describes that she had an accident while taking care of her horses a few weeks ago. Initially, at [facility], she was told it was a sprain. However, she saw Ortho for a mildly displaced radial head fracture. She did not tolerate casting. She was seen yesterday by that service and was recommended to continue wearing the braces until followup which is scheduled for 12/06/2022.--------- --04/26/2022: RECHECK, REFILLSPatient notes that she is doing very well. She describes that since her last visit she has moved back in with her ex- in [place]. She notes that life is going very well there and she is the happiest she can remember being for a long time. She notes that they have horses and they recently took a trip to [place] and they are getting along very well. However, she is not wanting to move her medical care to [place] at least for the time being. She notes that she needs medicine refills. She has almost run out of her Klonopin, she notes that she has had some more anxiety recently because she has had to extend her Klonopin so it would last to the appt. She denies having new problems today. 09/22:Patient notes that she has another UTI and another Migraine headache. She notes that she went to the ED yesterday for her headache and they gave her 100mcg of IV fentanyl. She notes that this usually works well for her. However, she notes that she did not have any benefit from it and did not feel like she received anything. She believes that the ED may have given her the wrong medicine. She is still having the headache and she is requesting a shot of Tordol today. She is also due for her allergy shots. She notes that she has urogenital burning. She notes that she saw her procurement cost coordinator yesterday. That they told her she had too much acid in her urine and that she should use Desitin. She notes that the Desitin did not help. However, she had a little bit of leftover silvadene. This helped a lot. She would like a refill of the silvadene if she can. She notes that the procurement cost coordinator gave her Macrobid. She has been taking it but she is concerned it is not seeming to work. She just started it yesterday. She is also wanting to go back on Chantix because she is smoking again. :Patient states that she does think she has started to have low blood sugars again and she is feeling dizzy when she stands because she stumbles. She states that she is taking the Trulicity now. However, she attributes the diarrhea to this. When she went off of the Trulicity before she does not think that the diarrhea went away. She states that she had diarrhea that started after taking the medicine. She notes that she had a colonoscopy a couple of years ago. She is not having blood in her diarrhea. She describes that the diarrhea is watery and occurs every day. She has not tried taking anything for it. She notes that her life is going very well right now. She notes that her family is doing better. Further, she notes that she has not had any headaches since she took the shot. She just had this shot for the first time last . She notes that her headaches have been gone since. She notes that she fell last week. After coming off of the Trulicity her FSBS had run in the upper 100s. It is better now on the Trulicity but it is having episodes of dropping into the 50s. She did not tolerate Metformin before because it caused her nausea and vomiting and diarrhea. 07/26/21Elizabeth notes that she went to [facility] in [place] where she was referred by Dr. Luevano. She notes that they recommended counseling and massages but this is not useful for her. She notes that she drinks about 3 8oz bottles of water per day. Patient is continuing to have headaches. She notes that she is not happy with her progress through the headache clinic that her neurologist sent her too. She notes that she is having a headache today and would like a toradol shot. These are the primary treatments that seem to help her pain. However, they don't help but for a little while. She notes that she has read about an infusion therapy that is dosed every 3 months. She notes that she would like to try this. She cannot remember the specific drug name that she read about, other than it started with a V. She notes that she is concerned because her FSBS has started to raise. She has had some levels over 200. She notes that she has been off of the trulicity for several months now. She is gaining weight back. She has not had any recurrence of the LOC or Low FSBS since being off of the medicine. However, she would like to go back on the same at a lower dose. She notes that it seemed to work very well for her and when she was on the lower dose regimens she did not have low BS or syncope. She started having those AE when she was on the high/target dose. At her last visit, she had requested to try valium instead of Klonopin for awhile. In the past she felt her anxiety was better controlled when she changed the medicine. However, she notes that she did not feel that the valium improved her symptoms at all. The klonopin, she now feels, works much better and she would like to go back on this. ----07/27/2021:She notes that her fainting and falling episodes are ongoing but better than before. She notes that she is going on a cruise with some friends. Today, at the time of her presentation she is having a severe migraine headache. It is a typical headache for her throbbing, aching pain that radiates from the front of her head and into her her skull and as well as in the neck. She wants to take Soma along with Valium. She been on Valium in the past and she has been on clonazepam in the past. Historically she is frequently or least occasionally altered between the 2 because her body gets more used to 1 than the other. She would like to switch back to Valium. She would like to add Soma back along with this. She has not found Flexeril to be helpful for her. She would be willing to consider trying Robaxin. Si nce her last visit, she is continued to have episodes of falling and episodes of near passing out. She is fallen at least 3 times. These are associated with a lot of vertigo and dizziness as well. She notes that she has had some low blood sugars and she is also losing weight. She has had poor appetite and nausea. Her concern is that these are all related. To recall, in addition to the migraine medicines, we had started her on Trulicity last fall. She is still taking the Trulicity at 3 mg/week. She is interested in reducing the dose of this and I think that is very reasonable. --------- She began to experience blackouts for the past month. She recently got up to use the bathroom and felt like the room was spinning. She fell forward and hit the door frame. She struck her forehead and left eye. She subsequently fell back and hit her head. She then woke up 2 hours later. On a different occasion, she fell in the bathroom and hit her neck. Another black out occurred last night. She feels that the blackouts occur freqently when she bends foward. She also feels lightheaded, dizzy, and off balance when she stands up. She has been experiencing nausea, vomiting, and headaches since the fall she experienced last . She went to the ER for migraines but was not seen. She has not had any imaging done since her falls. She does not want to do a CT scan because she is seeing her migraine doctor tomorrow and feels she will probably want to do one as well. She started a new migraine medication, emgality, about 1 month prior. She is seeing that provider tomorrow. Her is ropinirole was increased to 2 mg 01/26/21. She feels that the increase in medication helped with restless legs but was told by the pharmacist that it could be causing her dizziness. She notes that she did get in with a headache specialist in [place]. She notes that they recommended massages and therapy. She is not sure if she is going back to see them. LEANNA RIVERA MD [address] [place] [address], [phone], [facility] 10/24/2022 21:32:43 11/07/2022 text/html HAND DOMINANCE: Right WHAT: Right Knee Ankle Hip Th igh Lower Leg Shoulder Elbow Wrist/Hand wrist . WHEN: 11/03/22 HOW: impact injury while doing yard work SYMPTOMS: constant pain of right wrist in ulnar styloid area Pain is constant dull ache in nature. The patient has numbness or tingling They have popping and clicking They are not able to sleep comfortably with this injury. Their pain is made better with resting the limb Their pain is exacerbated by putting weight on and moving the affected limb Overall, the patient would say that their pain is not well-controlled at this time PAIN: X-RAY: LC MRI: No Disc PT: no INJECTION: no BEAN FISCHER PA-C [address] [place], [phone], [facility] 11/07/2022 15:04:34 12/01/2022 text/html HAND DOMINANCE: RightWHAT: Right Knee Ankle Hip Th igh Lower Leg Shoulder Elbow Wrist/Hand wrist . Pain is constant dull ache in nature.The patient has numbness or tinglingThey have popping and clickingThey are not able to sleep comfortably with this injury.Their pain is made better with resting the limbTheir pain is exacerbated by putting weight on and moving the affected limbOverall, the patient would say that their pain is not well-controlled at this time.Had an initial fall believed to be in late August., X-rays were normal. Had another fall, was subsequently seen by Chung Shukla PA-C. Diagnosed with distal radius fracture. Last week, was on vacation with her family and got the cast wet, proceeded to cut it off herself. States she has had an Orthoplast splint custom made for her previously.PAIN: -RAY: LCMRI: No Disc BEAN FISCHER PA-C [address] [place], [phone], [facility] 12/01/2022 13:20:43 12/14/2022 text/html Patient comes in today for FU Right Knee Ankle Hip Thigh Lower Leg Shoulder Elbow W rist/Hand wrist.Gin ent states they are worse than last visit.WHEN: 11/03/22HOW: fall injurySYMPTOMS: constant pain of right wrist in ulnar styloid area Patient is here today to review CT results. Patient presents wearing a brace. Patient reports an increase in N/T. Difficulty sleeping due to pain. No popping/clicking. Her pain radiates into her forearm. It is difficult for her to make a fist with her rt hand. She has limited ROM and weakness. She has not been in therapy. EMILI MARTINEZ MD [address] [place], [address], [facility] 12/14/2022 13:48:04 02/16/2023 text/html Patient last see n back at the end of September for her distal radius fracture. States that she has been doing well in regards to the wrist, but over the past few months is developed numbness and tingling diffusely in the hand during the day and night. Symptoms wake her up from sleep. Over her wrist was accidentally twisted and since that time she reports pain along the radial aspect of the wrist. Consult requested by:Primary Care Physician: Leanna Rivera MD Hand dominance: RightLocation: Right Wrist Pain level: Date of injury: 09/18/22Duration: 5 months Recent Surgery: NoProcedure:Date of surgery:Surgeon(If Known): In office procedure? No Previous upper extremity surgery? NoProcedure:Approxim ate date of surgery:Surgeon (if known):Have you or an immediate family member ever seen our hand surgeons before? Yes Currently employed?: Retired Patient arrived in: cast splint surgical dressing OTC brace n/a Condenser Tube Tender Strength: right: left: Ms. Escobedo is here for recheck of rt wrist. XOA. She says her hand has been going to sleep and tingling alot. She also says on day her wrist got twisted and pulled, since then she has had swelling and pain. LILIANA LUNDBERG MD [address] [place], [address], [facility] 02/16/2023 13:20:57 OBGyn Episode No OBEpisode recorded.
--- OUTSIDE RECORDS SUMMARY | 2024-07-29 15:58 | XMS_ITS | Encounter Summary ---
Author Organization [employer] Address [address] [place] [address] Care Team Providers Care Workers' Compensation Mediator Name Role Phone Jayden Rowan MD Primary Care Provider [phone] Encounter Details Date Type Department Care Team (Late st Contact Info) Description 03/04/2019 Transcribed Document [facility] [place] Family Medicine [facility] [place] [address] ProviderJason MD [address] [place] [address] Social History Tobacco Use Types Packs/Day Years Used Date Smoking Tobacco: Never Assessed Comments Unknown Sex and Gender Information Value Date Recorded Sex Assigned at Not on file Legal Sex Female 3:15 PM CDT Gender Identity Not on file Sexual Orientation Not on file documented as of this encounter Miscellaneous Notes * Cerner Conversion Note - Jason ProviderMD - 03/04/2019 1:08 AM 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 FIELD 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 ED Discharge Entered On: 03/04/2019 1:09 EST Performed On: 03/04/2019 1:08 EST by Erika Crespo RN Discharge Process Patient Disposition : Discharge Patient Education Completed : Yes Teaching Evaluation : Verbalizes understanding IV Discontinued : Yes Nursing Documentation Completed : Yes Erika Crespo RN - 03/04/2019 1:08 EST ED Discharge Discharge To : Home with ambulatory/outpatient follow-up Mode Of Departure : Ambulatory Accompanied By : Unaccompanied Discharge Instructions Reviewed With, Opportunity For Questions Given : Patient Prescriptions Given to Patient : No Erika Crespo RN - 03/04/2019 1:08 EST Electronically signed by [facility] Conversion Lithographic Press Operator Cerner at 06/09/2022 3:29 PM CDT documented in this encounter Plan of Treatment Not on file documented as of this encounter Visit Diagnoses Not on filedocumented in this encounter Care Teams Workers' Compensation Mediator Relationship Specialty Start Date End Date Jayden Rowan MD [address] [place] [phone] PCP - General General Internal Medicine 07/05/22 documented as of this encounter
--- OUTSIDE RECORDS SUMMARY | 2024-07-29 15:58 | XMS_ITS | Encounter Summary ---
Author Organization [employer] Address [address] [place] [address] Care Team Providers Care Messenger Floorperson Name Role Phone Jayden Rowan MD Primary Care Provider [phone] Encounter Details Date Type Department Care Team (Late st Contact Info) Description 04/08/2018 Transcribed Document [facility] [place] [facility] [place] [address] ProviderJason MD [address] [place] [address] Social History Tobacco Use Types Packs/Day Years Used Date Smoking Tobacco: Never Assessed Comments Unknown Sex and Gender Information Value Date Recorded Sex Assigned at Not on file Legal Sex Female 3:15 PM CDT Gender Identity Not on file Sexual Orientation Not on file documented as of this encounter Miscellaneous Notes * Cerner Conversion Note - Jason Zendejas MD - 04/08/2018 3:24 PM METAL MODEL MAKER Patient: CECILE RAMIREZ Age: 63 years Sex: Female : 1955 Associated Diagnoses: Suicidal ideations Author: DANIEL SUMMERS MD-EMR Basic Information Time seen: Immediately upon arrival. History of Present Illness The patient is a 63-year-old female. She presents by EMS with decreased level of responsiveness. According to EMS they arrived at a residence with the patient was stained. There was a report that she may have taken up to #6, 5 mg Valium tablets. In route she did have a episode of unresponsiveness where she was having eyelid fluttering. She was given 0.5 mg of IV Narcan in route with no relief of her symptoms. There was no focal motor tonic-clonic activity in her extremities. She was medically stable and route. There was no reported trauma. Our Chief Growth Officer has spoken with her [id number]. The patient has reportedly been stating that she wants to kill herself for the last week or 2. She has a history of severe anxiety and depression. This seemed to worsen after her dog was killed at some point this past month. At bedside I am unable to obtain any history from the patient Review of Systems Constitutional symptoms: Negative except as documented in HPI. Skin symptoms: Negative except as documented in HPI. Eye symptoms: Negative except as documented in HPI. ENMT symptoms: Negative except as documented in HPI. Respiratory symptoms: Negative except as documented in HPI. Cardiovascular symptoms: Negative except as documented in HPI. Gastrointestinal symptoms: Negative except as documented in HPI. Genitourinary symptoms: Negative except as documented in HPI. Musculoskeletal symptoms: Negative except as documented in HPI. Neurologic symptoms: Negative except as documented in HPI. Psychiatric symptoms: Negative except as documented in HPI. Endocrine symptoms: Negative except as documented in HPI. Hematologic/Lymphatic symptoms: Negative except as documented in HPI. Allergy/immunologic symptoms: Negative except as documented in HPI. Additional review of systems information: All other systems reviewed and otherwise negative, All systems reviewed as documented in chart. Health Status Allergies: Allergic Reactions (Selected) Severity Not Documented Acetaminophen-HYDROcodone- No reactions were documented. Codeine- No reactions were documented. HYDROmorphone- No reactions were documented. Imitrex- No reactions were documented. Maxalt- No reactions were documented. Morphine- No reactions were documented. Zofran- No reactions were documented.. Past Medical/ Family/ Social History Surgical history: bladder sling. hysterectomy. neck disc sx. appendectomy. hernia repair x2. gallbladder sx.. Family history: No family history items have been selected or recorded.. Social history: Social & Psychosocial Habits Alcohol 05/11/2013 Alcohol Use in Last Twelve Months No 10/24/2015 Alcohol Use History, Social Habits No 07/09/2017 Alcohol Use History, Social Habits No Employment/School 05/05/2017 Status: Retired Home/Environment 05/05/2017 [...] Hysterectomy Migraine . Physical Examination Vital Signs Per nurse's notes. General: Initially patient will respond to painful stimuli.. Skin: Warm, dry. Head: Normocephalic, atraumatic. Neck: Supple. Eye: Pupils are equal, round and reactive to light, extraocular movements are intact. Ears, nose, mouth and throat: Oral mucosa moist. Cardiovascular: Regular rate and rhythm, No murmur, Normal peripheral perfusion, No edema. Respiratory: Lungs are clear to auscultation. Gastrointestinal: Soft, Nontender, Non distended, Normal bowel sounds. Back: Nontender. Musculoskeletal: No swelling, no deformity. Neurological: Initially patient will not respond to verbal stimuli. She has good tone in all 4 extremities. No facial palsy noted. Lymphatics: No lymphadenopathy. Medical Decision Making Orders Include Previous Orders (Selected) Inpatient Orders Ordered Cardiac Monitoring: ECG: ED Adult Fall Risk Assessment: ED Clinical Reconciliation: ED welcome hostess: Normal Saline Flush: 10 mL, IV Push, 1-Time Normal Saline Flush: 10 mL, IV Push, See Comment, PRN: IV Use Peripheral IV Insertion: Pulse Oximetry Continuous Monitoring: Sodium Chloride 0.9% intravenous solution 1,000 mL: 1,000 mL/Hr, IntraVENous Urinary Catheter Insertion: Vital Signs: Ordered (Exam Completed) CR Chest 1 Vw Portable: Ordered (In-Lab) Culture Urine: Completed .Automated Differential: .Urinalysis Microscopic: Acetaminophen (Tylenol) Level: Alcohol Level: Blood Gas (RT): Blood Gas Arterial (ABG): CBC w/ Auto Diff: CMP Comprehensive Metabolic Panel: CT Brain WO: Drug Screen Urine 2: ED Adult Triage: Lactic Acid Level with Reflex if Indicated: Lipase Level: Magnesium Level: PT/INR Prothrombin Time: ProBNP: Procalcitonin: Salicylate Level: TSH Thyroid Stimulating Hormone: Troponin I Ultra: Urinalysis w Microscopic: Pending Complete (Ordered) Culture Blood: . Results review: Lab results : Lab Results 04/08/2018 15:39 EST Sodium Level 139 mmol/L Potassium Level 4.0 mmol/L Chloride Level 106 mmol/L Carbon Dioxide Level 26 mmol/L Anion Gap 11 Glucose Level 89 mg/dL Blood Urea Nitrogen 4 mg/dL LOW Creatinine Level 0.60 mg/dL eGFR >60 mL/min/1.73m2 eGFR NonAfrican >60 mL/min/1.73m2 Bun/Creatinine 6.7 LOW Calcium Level 8.7 mg/dL Protein Total 7.4 Gram/dL Albumin Level 3.6 Gram/dL Globulin 3.8 Gram/dL A/G Ratio 0.9 LOW Bilirubin Total 0.6 mg/dL Alk Phos 95 Units/Liter AST 22 Units/Liter ALT 30 Units/Liter Magnesium Level 2.2 mg/dL Lipase Level 124 Units/Liter Lactic Acid Level 1.0 mmol/L Troponin I Ultra <0.015 ng/mL ProBNP 12 pg/mL WBC 8.8 K/uL RBC 5.72 Million/uL HI Hgb 14.2 g/dL Hct 46.0 % HI MCV 80.4 fL MCH 24.8 pg LOW MCHC 30.9 Gram/dL LOW Platelet Count 263 K/uL MPV 9.7 fL RDW 13.8 % Neut % 59.5 % Neut # 5.21 K/uL Lymph % 29.4 % Lymph # 2.57 x10(3)/uL [place] % 6.7 % [place] # 0.59 K/uL Eos % 3.3 % Eos # 0.29 x10(3)/uL Baso % 0.6 % Baso # 0.05 x10(3)/uL Slide Review No IG# 0.04 x10(3)/uL IG% 0.50 % PT 10.0 Second(s) INR 0.9 Urine Type U CleanCatch Urine Color Yellow Urine Appearance Clear Urine Specific Cantril 1.007 Urine pH Dipstick 6.5 Urine Leukocyte Esterase Negative Urine Nitrite Negative Urine Protein Dipstick Negative Urine Glucose Dipstick Negative Urine Ketones Dipstick Negative Urine Urobilinogen Dipstick 0.2 EU/dL Urine Bilirubin Dipstick Negative Urine Blood Dipstick Negative Ur Mucous Trace Procalcitonin <0.25 ng/mL TSH 1.840 mcInt Units/mL Acetaminophen Level <2.0 mcg/mL LOW Salicylate 4.9 mg/dL UDS pH 6.5 UDS Amp NEGATIVE UDS Monisha NEGATIVE UDS Benzo POSITIVE UDS Betito NEGATIVE UDS Opi NEGATIVE UDS PCP NEGATIVE UDS TCA Positive UDS THC NEGATIVE Alcohol <3 mg/dL NA %Alcohol <.00 NA 04/08/2018 15:30 EST pH Art 7.41 pCO2 Art 42.5 mmHg pO2 Art 84.0 mmHg HCO3 Art 26.4 mmol/L HI BE Art 2.0 mmol/L sO2 Art 95.5 % tHb Art 14.0 Gram/dL FHHb 4.2 % NA ctO2 17.6 mmol/L NA Delivery Device Type Art Cannula Temperature, F Art 98.6 Deg F NA Art Blood Gas (ABG) Site Right Radial Acceptable Richard's Test Art Acceptable Oxygen Flow Rate Art 4.0 Liter NA ABG Num of Draw Attempts 1 NA . Radiology results: Radiology Results (Last 48 hours) [id number] -- 04/08/2018 15:14 CT Head WO (04/08/2018 15:47) Result: Noncontrast head CTINDICATION: UnresponsiveTECHNIQUE: Helically acquired noncontrast axial CT images were obtainedfrom the vertex to the skull base. Dose reduction techniques wereemployed to achieve ALARA.FINDINGS:There is no evidence of intracranial hemorrhage, focal mass lesion, oracute ischemia. The ventricles are midline and symmetric.Impression: No acute intracranial process. , Chest x-ray reveals no acute cardiopulmonary abnormality. Reexamination/ Reevaluation Time: 04/08/2018 18:12:00 . Assessment: Patient is awake alert oriented ??4. 5 over 5 strength in 4 extremities. Sensation intact ??4 extremities. Patient is now asking for pain medicine for a headache. As noted above I have discussed the patient's case with her family in detail. It appears she has a long history of depression and is more suicidal ideations over the last 1-2 weeks. At this time the patient is medically cleared and is ready for [facility] evaluation.. Impression and Plan Diagnosis Suicidal ideations - Discharge, Emergency medicine, Medical Calls-Consults - 04/08/2018 18:14:00 , [facility] has been consulted. Pt is now medically cleared . Plan Condition: Stable. Counseled: Patient, Family. Electronically signed by [facility], [facility] Conversion Safe Technician Cerner at 06/09/2022 3:28 PM CDT documented in this encounter Plan of Treatment Not on file documented as of this encounter Visit Diagnoses Not on filedocumented in this encounter Care Teams Messenger Floorperson Relationship Specialty Start Date End Date Jayden Rowan MD [address] [place] [phone] PCP - General General Internal Medicine 07/05/22 documented as of this encounter
--- OUTSIDE RECORDS SUMMARY | 2024-07-29 15:58 | XMS_ITS | Encounter Summary ---
Author Organization [employer] Address [address] [place] [address] Care Team Providers Care Crank Hand Name Role Phone Jayden Rowan MD Primary Care Provider [phone] Encounter Details Date Type Department Care Team (Late st Contact Info) Description 06/26/2020 Transcribed Document [facility] [place] [facility] [address] ProviderJason MD [address] [place] [address] Social History Tobacco Use Types Packs/Day Years Used Date Smoking Tobacco: Never Assessed Comments Unknown Sex and Gender Information Value Date Recorded Sex Assigned at Not on file Legal Sex Female 3:15 PM CDT Gender Identity Not on file Sexual Orientation Not on file documented as of this encounter Miscellaneous Notes * Cerner Conversion Note - Jason Zendejas MD - 06/26/2020 3:26 PM CDT [place] Suicide Severity Rating Scale (C-SSRS) Entered On: 06/26/2020 16:32 EDT Performed On: 06/26/2020 16:31 EDT by Tori Rolon RN [place] Suicide Severity Rating Scale (C-SSRS) CSSRS Past Month Wish to be : No CSSRS Past Month Suicidal Thoughts : No CSSRS Lifetime Suicide Behavior : No Suicide Severity Rating Score : 0 Suicide Severity Rating : No Additional Care Required at this time Tori Rolon RN - 06/26/2020 16:31 EDT documented in this encounter Plan of Treatment Not on file documented as of this encounter Visit Diagnoses Not on filedocumented in this encounter Care Teams Crank Hand Relationship Specialty Start Date End Date Jayden Rowan MD [address] [place] [phone] PCP - General General Internal Medicine 07/05/22 documented as of this encounter
--- OUTSIDE RECORDS SUMMARY | 2024-07-29 15:58 | XMS_ITS | Encounter Summary ---
Author Organization [employer] Address [address] [place] [address] Care Team Providers Care Calender Feeder Name Role Phone Jaydne Rowan MD Primary Care Provider [phone] Encounter Details Date Type Department Care Team (Late st Contact Info) Description 06/20/2018 Transcribed Document [facility] [place] Family Medicine [facility] [place] [address] ProviderJason MD [address] [place] [address] Social History Tobacco Use Types Packs/Day Years Used Date Smoking Tobacco: Never Assessed Comments Unknown Sex and Gender Information Value Date Recorded Sex Assigned at Not on file Legal Sex Female 3:15 PM CDT Gender Identity Not on file Sexual Orientation Not on file documented as of this encounter Miscellaneous Notes * Cerner Conversion Note - Jason Zendejas MD - 06/20/2018 5:28 AM CDT ED Triage Entered On: 06/20/2018 5:32 EDT Performed On: 06/20/2018 5:28 EDT by Chung Wasserman, Director Emergency Services ED Triage Across the Room Triage Date/Time : 06/19/2018 18:21 EDT Chief Complaint : Computer downtime - Late entry - 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 C/O shoulder and wrist pain Chung Wasserman, Director Emergency Services - 06/20/2018 5:28 EDT DCP GENERIC CODE Tracking Acuity : 4 - Non - Urgent Tracking Group : [facility] ED [place], Director Emergency Services - 06/20/2018 5:28 EDT Mode of Arrival : Ambulatory Transported to ED by : Private vehicle To Room Via : Ambulate Accompanied By : Unaccompanied ED Vital Signs : Document Height & Weight : Document ED Reason for Visit : Document Tetanus Immunization : Less than 5 years Chung Wasserman, Director Emergency Services - 06/20/2018 5:28 EDT Infectious Disease History Infectious Disease History : Chicken pox/Shingles, Measles, Mumps Fever/Chills Last 48 Hours : No Travel To Regions with Travel Advisories : No Travel Outside [place] Within Last 30 Days : No Contact With Traveler to Advisory Region : No Tuberculosis Symptoms : None Chung Wasserman, Director Emergency Services - 06/20/2018 5:28 EDT Vital Signs ED Temperature Source : Oral Temperature Mode : Fahrenheit Temperature, Fahrenheit : 98.6 Deg F Clinical Temperature, C : 37 Deg C Oxygen Therapy Mode : Room air Peripheral Pulse Rate : 106 bpm (HI) Respiratory Rate : 20 Breaths/Min Blood Pressure Location : Arm, left upper Systolic Blood Pressure : 120 mmHg Diastolic Blood Pressure : 63 mmHg Oxygen Saturation : 94 % Chung Wasserman, Director Emergency Services - 06/20/2018 5:28 EDT Diagnosis Control ED (As Of: 06/20/2018 05:32:56 EDT) Problems(Active) Anxiety (SNOMED CT :91529095 ) Name of Problem: Anxiety ; Recorder: BOB PEARCE RN; Confirmation: Confirmed ; Classification: Medical ; Code: [id number] ; Contributor System: PowerChart ; Last Updated: 08/01/2013 19:25 EDT ; Life Cycle Date: 05/11/2013 ; Life Cycle Status: Active ; Vocabulary: SNOMED CT Appendectomy (SNOMED CT :903750896 ) Name of Problem: Appendectomy ; Recorder: BOB PEARCE RN; Confirmation: Confirmed ; Classification: Medical ; Code: [id number] ; Contributor System: PowerChart ; Last Updated: 08/06/2013 10:55 EDT ; Life Cycle Date: 05/11/2013 ; Life Cycle Status: Active ; Vocabulary: SNOMED CT Bladder (SNOMED CT :789033955 ) Name of Problem: Bladder ; Recorder: BOB PEARCE RN; Confirmation: Confirmed ; Classification: Medical ; Code: [id number] ; Contributor System: PowerChart ; Last Updated: 08/08/2013 13:51 EDT ; Life Cycle Date: 05/11/2013 ; Life Cycle Status: Active ; Vocabulary: SNOMED CT ; Comments: 05/11/2013 16:28 - BOB PEARCE RN bladder sling Cholecystectomy (SNOMED CT :59237945 ) Name of Problem: Cholecystectomy ; Recorder: BOB PEARCE RN; Confirmation: Confirmed ; Classification: Medical ; Code: [id number] ; Contributor System: PowerChart ; Last Updated: 08/06/2013 10:53 EDT ; Life Cycle Date: 05/11/2013 ; Life Cycle Status: Active ; Vocabulary: SNOMED CT COPD (chronic obstructive pulmonary disease) (SNOMED CT :87314396 ) Name of Problem: COPD (chronic obstructive pulmonary disease) ; Recorder: BONNIE FUCHS RN; Confirmation: Confirmed ; Classification: Medical ; Code: [id number] ; Contributor System: ChairishChart ; Last Updated: 06/30/2014 10:41 EDT ; Life Cycle Date: 06/30/2014 ; Life Cycle Status: Active ; Vocabulary: SNOMED CT Depression (SNOMED CT :064211882 ) Name of Problem: Depression ; Recorder: BOB PEARCE RN; Confirmation: Confirmed ; Classification: Medical ; Code: [id number] ; Contributor System: PowerChart ; Last Updated: 08/01/2013 19:25 EDT ; Life Cycle Date: 05/11/2013 ; Life Cycle Status: Active ; Vocabulary: SNOMED CT Diabetes mellitus (SNOMED CT :557881749 ) Name of Problem: Diabetes mellitus ; Recorder: Arabella Pineda RN; Confirmation: Confirmed ; Classification: Patient Stated ; Code: [id number] ; Contributor System: PowerChart ; Last Updated: 07/09/2017 2:14 EDT ; Life Cycle Date: 07/09/2017 ; Life Cycle Status: Active ; Vocabulary: SNOMED CT GERD (gastroesophageal reflux disease) (SNOMED CT :476733666 ) Name of Problem: GERD (gastroesophageal reflux disease) ; Recorder: BONNIE FUCHS RN; Confirmation: Confirmed ; Classification: Medical ; Code: [id number] ; Contributor System: PowerChart ; Last Updated: 06/30/2014 10:41 EDT ; Life Cycle Date: 06/30/2014 ; Life Cycle Status: Active ; Vocabulary: SNOMED CT High cholesterol (SNOMED CT :[id number] ) Name of Problem: High cholesterol ; Recorder: BOB PEARCE RN; Confirmation: Confirmed ; Classification: Medical ; Code: [id number] ; Contributor System: ServiceRelated ; Last Updated: 08/01/2013 19:25 EDT ; Life Cycle Date: 05/11/2013 ; Life Cycle Status: Active ; Vocabulary: SNOMED CT Hysterectomy (SNOMED CT :612840717 ) Name of Problem: Hysterectomy ; Recorder: BOB PEARCE RN; Confirmation: Confirmed ; Classification: Medical ; Code: [id number] ; Contributor System: ServiceRelated ; Last Updated: 08/06/2013 10:54 EDT ; Life Cycle Date: 05/11/2013 ; Life Cycle Status: Active ; Vocabulary: SNOMED CT Migraine (SNOMED CT :20451430 ) Name of Problem: Migraine ; Recorder: BOB PEARCE RN; Confirmation: Confirmed ; Classification: Medical ; Code: 98340507 ; Contributor System: ServiceRelated ; Last Updated: 08/01/2013 19:25 EDT ; Life Cycle Date: 05/11/2013 ; Life Cycle Status: Active ; Vocabulary: SNOMED CT Diagnoses(Active) Shoulder injury - Minor Date: 06/20/2018 ; Diagnosis Type: Reason For Visit ; Confirmation: Complaint of ; Clinical Dx: Shoulder injury - Minor ; Classification: Medical ; Clinical Service: Emergency medicine ; Code: PNED ; Probability: 0 ; Diagnosis Code: [id number] ED Height and Weight Height Source : Estimated Height Entry Format : [place] Height, Feet : 5 ft(Converted to: 152 cm, 60 Inch) Height, Inches : 6 Inch(Converted to: 0 ft 6 Inch, 15.24 cm) Clinical Height : 167.64 cm Weight Source, ED : Stated [place] Body Weight (IBW) : 58.88 kg Chung Wasserman, Director Emergency Services - 06/20/2018 5:28 EDT Estimated Weight Type of Weight Measurement Est : [place] Weight, est lb : 150 lb(Converted to: 68 kg) Weight, est oz : 0 oz Estimated Clinical Dosing Weight : 68.18 kg Chung Wasserman, Director Emergency Services - 06/20/2018 5:28 EDT Electronically signed by [facility] Conversion Polisher Aluminum Cerner at 06/09/2022 3:27 PM CDT documented in this encounter Plan of Treatment Not on file documented as of this encounter Visit Diagnoses Not on filedocumented in this encounter Care Teams Calender Feeder Relationship Specialty Start Date End Date Jayden Rowan MD [address] [place] [phone] PCP - General General Internal Medicine 07/05/22 documented as of this encounter
--- OUTSIDE RECORDS SUMMARY | 2024-07-29 15:58 | XMS_ITS | Encounter Summary ---
Author Organization [employer] Address [address] [place] [address] Care Team Providers Care Bulk Cooler Installer Name Role Phone Jayden Rowan MD Primary Care Provider [phone] Encounter Details Date Type Department Care Team (Late st Contact Info) Description 06/26/2020 Transcribed Document [facility] [place] Family Medicine [facility] [place] [address] ProviderJason MD [address] [place] [address] Social History Tobacco Use Types Packs/Day Years Used Date Smoking Tobacco: Never Assessed Comments Unknown Sex and Gender Information Value Date Recorded Sex Assigned at Not on file Legal Sex Female 3:15 PM CDT Gender Identity Not on file Sexual Orientation Not on file documented as of this encounter Miscellaneous Notes * Cerner Conversion Note - Jason Zendejas MD - 06/26/2020 5:12 PM CDT ED Discharge Entered On: 06/26/2020 17:15 EDT Performed On: 06/26/2020 17:12 EDT by Tori Rolon asic design engineer Process Patient Disposition : Discharge Personal Belongings With Patient : Yes Patient Education Completed : Yes Teaching Evaluation : Verbalizes understanding IV Discontinued : Yes Nursing Documentation Completed : Yes Tori Rolon RN - 06/26/2020 17:12 EDT ED Discharge Vital Signs Peripheral Pulse Rate : 87 bpm Respiratory Rate : 18 Breaths/Min Systolic Blood Pressure : 129 mmHg Diastolic Blood Pressure : 61 mmHg Oxygen Saturation : 95 % Oxygen Therapy Mode : Room air Tori Rolon RN - 06/26/2020 17:12 EDT ED Discharge Discharge To : Home with ambulatory/outpatient follow-up Mode Of Departure : Ambulatory Accompanied By : Unaccompanied Discharge Instructions Reviewed With, Opportunity For Questions Given : Patient Prescriptions Given to Patient : Electronically sent Number of Prescriptions Given : 1 Medications Given to Patient : Yes Number of Medications Given : 2 Tori Rolon RN - 06/26/2020 17:12 EDT Electronically signed by [facility] Conversion Tape Recording Machine Operator Cerner at 06/09/2022 3:27 PM CDT documented in this encounter Plan of Treatment Not on file documented as of this encounter Visit Diagnoses Not on filedocumented in this encounter Care Teams Bulk Cooler Installer Relationship Specialty Start Date End Date Jayden Rowan MD [address] [place] [phone] PCP - General General Internal Medicine 07/05/22 documented as of this encounter
--- OUTSIDE RECORDS SUMMARY | 2024-07-29 15:58 | XMS_ITS | Encounter Summary ---
Author Organization [employer] Address [address] [place] [address] Care Team Providers Care Inventory Analyst Name Role Phone Jayden Rowan MD Primary Care Provider [phone] Encounter Details Date Type Department Care Team (Late st Contact Info) Description 06/19/2019 Transcribed Document [facility] [place] Family Medicine [facility] [place] [address] ProviderJason MD [address] [place] [address] Social History Tobacco Use Types Packs/Day [...] Zendejas MD - 06/19/2019 8:59 PM CDT ED Triage Entered On: 06/19/2019 21:08 EDT Performed On: 06/19/2019 21:03 EDT by Dottie Baltazar MECHANICS SUPERVISOR Triage Across the Room Chief Complaint : c/o headache and vomiting x 4 days, hx of same Triage Date/Time : 06/19/2019 21:03 EDT Dottie Baltazar RN - 06/19/2019 21:03 EDT DCP GENERIC CODE Tracking Acuity : 3 - Urgent Tracking Group : [facility] ED Dottie Mistry RN - 06/19/2019 21:03 EDT Mode of Arrival : Ambulatory Transported to ED by : Private vehicle To Room Via : Ambulate Accompanied By : Unaccompanied ED Vital Signs : Document Height & Weight : Document ED Allergies : Document ED Reason for Visit : Document Tetanus Immunization : Less than 5 years Dottie Baltazar RN - 06/19/2019 21:03 EDT Infectious Disease History Has the patient ever been tested for COVID-19? : Yes, Patient stated results Negative COVID19 Screening : No Experiencing Infectious Disease Symptoms : No symptoms Physical contact outside US in the last 30 days : No Infectious Disease History : Chicken pox/Shingles, Measles, Mumps Tuberculosis Symptoms : None Dottie Baltazar RN - 06/19/2019 21:03 EDT Vital Signs ED Temperature Source : Oral Temperature Mode : Fahrenheit Temperature, Fahrenheit : 98.0 Deg F ED Pain : Yes Clinical Temperature, C : 36.7 Deg C Oxygen Therapy Mode : Room air Peripheral Pulse Rate : 111 bpm (HI) Respiratory Rate : 20 Breaths/Min Systolic Blood Pressure : 169 mmHg (HI) Diastolic Blood Pressure : 76 mmHg Oxygen Saturation : 95 % Dottie Baltazar RN - 06/19/2019 21:03 EDT Allergy (As Of: 06/19/2019 21:08:56 EDT) Allergies (Active) acetaminophen-HYDROcodone Estimated Onset Date: Unspecified ; Created By: YASMIN RED; Reaction Status: Active ; Substance: acetaminophen-HYDROcodone ; Updated By: YASMIN RED; Reviewed Date: 06/19/2019 21:06 EDT codeine Estimated Onset Date: Unspecified ; Created By: YASMIN RED; Reaction Status: Active ; Category: Drug ; Substance: codeine ; Type: Allergy ; Updated By: YASMIN RED; Reviewed Date: 06/19/2019 21:06 EDT HYDROmorphone Estimated Onset Date: Unspecified ; Created By: YASMIN RED; Reaction Status: Active ; Category: Drug ; Substance: HYDROmorphone ; Type: Allergy ; Updated By: YASMIN RED; Reviewed Date: 06/19/2019 21:06 EDT Imitrex Estimated Onset Date: Unspecified ; Created By: KEENAN PEDROZA MD; Reaction Status: Active ; Category: Drug ; Substance: Imitrex ; Type: Allergy ; Updated By: KEENAN PEDROZA MD; Reviewed Date: 06/19/2019 21:06 EDT Maxalt Estimated Onset Date: Unspecified ; Created By: KEENAN PEDROZA MD; Reaction Status: Active ; Category: Drug ; Substance: Maxalt ; Type: Allergy ; Updated By: KEENAN PEDROZA MD; Reviewed Date: 06/19/2019 21:06 EDT morphine Estimated Onset Date: Unspecified ; Created By: CONTRIBUTOR_SYSTEM HIST_CARLOS; Reaction Status: Active ; Category: Drug ; Substance: morphine ; Type: Allergy ; Updated By: CONTRIBUTOR_SYSTEMYASMIN; Reviewed Date: 06/19/2019 21:06 EDT Zofran Estimated Onset Date: Unspecified ; Created By: Tenisha Curry Rn; Reaction Status: Active ; Category: Drug ; Substance: Zofran ; Type: Allergy ; Updated By: Tenisha Curry Rn; Reviewed Date: 06/19/2019 21:06 EDT Diagnosis Control ED (As Of: 06/19/2019 21:08:56 EDT) Problems(Active) Anxiety (SNOMED CT :92574216 ) Name of Problem: Anxiety ; Recorder: BOB PEARCE RN; Confirmation: Confirmed ; Classification: Medical ; Code: [id number] ; Contributor System: PowerChart ; Last Updated: 08/01/2013 19:25 EDT ; Life Cycle Date: 05/11/2013 ; Life Cycle Status: Active ; Vocabulary: SNOMED CT Appendectomy (SNOMED CT :884445564 ) Name of Problem: Appendectomy ; Recorder: BOB PEARCE RN; Confirmation: Confirmed ; Classification: Medical ; Code: 245646204 ; Contributor System: PowerChart ; Last Updated: 08/06/2013 10:55 EDT ; Life Cycle Date: 05/11/2013 ; Life Cycle Status: Active ; Vocabulary: SNOMED CT Bladder (SNOMED CT :344182674 ) Name of Problem: Bladder ; Recorder: BOB PEARCE RN; Confirmation: Confirmed ; Classification: Medical ; Code: [id number] ; Contributor System: PowerChart ; Last Updated: 08/08/2013 13:51 EDT ; Life Cycle Date: 05/11/2013 ; Life Cycle Status: Active ; Vocabulary: SNOMED CT ; Comments: 05/11/2013 16:28 - BOB PEARCE RN bladder sling Cholecystectomy (SNOMED CT :95811668 ) Name of Problem: Cholecystectomy ; Recorder: BOB PEARCE RN; Confirmation: Confirmed ; Classification: Medical ; Code: 40429174 ; Contributor System: [facility] ; Last Updated: 08/06/2013 10:53 EDT ; Life Cycle Date: 05/11/2013 ; Life Cycle Status: Active ; Vocabulary: SNOMED CT COPD (chronic obstructive pulmonary disease) (SNOMED CT :35618699 ) Name of Problem: COPD (chronic obstructive pulmonary disease) ; Recorder: BONNIE FUCHS RN; Confirmation: Confirmed ; Classification: Medical ; Code: [id number] ; Contributor System: PowerChart ; Last Updated: 06/30/2014 10:41 EDT ; Life Cycle Date: 06/30/2014 ; Life Cycle Status: Active ; Vocabulary: SNOMED CT Depression (SNOMED CT :702202070 ) Name of Problem: Depression ; Recorder: BOB PEARCE RN; Confirmation: Confirmed ; Classification: Medical ; Code: [id number] ; Contributor System: PowerChart ; Last Updated: 08/01/2013 19:25 EDT ; Life Cycle Date: 05/11/2013 ; Life Cycle Status: Active ; Vocabulary: SNOMED CT Diabetes mellitus (SNOMED CT :724402023 ) Name of Problem: Diabetes mellitus ; Recorder: Arabella Pineda RN; Confirmation: Confirmed ; Classification: Patient Stated ; Code: 226297610 ; Contributor System: [facility] ; Last Updated: 07/09/2017 2:14 EDT ; Life Cycle Date: 07/09/2017 ; Life Cycle Status: Active ; Vocabulary: SNOMED CT GERD (gastroesophageal reflux disease) (SNOMED CT :375537683 ) Name of Problem: GERD (gastroesophageal reflux disease) ; Recorder: BONNIE FUCHS RN; Confirmation: Confirmed ; Classification: Medical ; Code: [id number] ; Contributor System: PowerChart ; Last Updated: 06/30/2014 10:41 EDT ; Life Cycle Date: 06/30/2014 ; Life Cycle Status: Active ; Vocabulary: SNOMED CT High cholesterol (SNOMED CT :[id number] ) Name of Problem: High cholesterol ; Recorder: BOB PEARCE RN; Confirmation: Confirmed ; Classification: Medical ; Code: [id number] ; Contributor System: [employer] ; Last Updated: 08/01/2013 19:25 EDT ; Life Cycle Date: 05/11/2013 ; Life Cycle Status: Active ; Vocabulary: SNOMED CT Hysterectomy (SNOMED CT :089448071 ) Name of Problem: Hysterectomy ; Recorder: BOB PEARCE RN; Confirmation: Confirmed ; Classification: Medical ; Code: 250628450 ; Contributor System: [facility] ; Last Updated: 08/06/2013 10:54 EDT ; Life Cycle Date: 05/11/2013 ; Life Cycle Status: Active ; Vocabulary: SNOMED CT Migraine (SNOMED CT :30939169 ) Name of Problem: Migraine ; Recorder: BOB PEARCE RN; Confirmation: Confirmed ; Classification: Medical ; Code: 19179079 ; Contributor System: [employer] ; Last Updated: 08/01/2013 19:25 EDT ; Life Cycle Date: 05/11/2013 ; Life Cycle Status: Active ; Vocabulary: SNOMED CT Diagnoses(Active) Headache Date: 06/19/2019 ; Diagnosis Type: Reason For Visit ; Confirmation: Complaint of ; Clinical Dx: Headache ; Classification: Medical ; Clinical Service: Emergency medicine ; Code: PNED ; Probability: 0 ; Diagnosis Code: [id number] ED Height and Weight Height Source : Stated Height Entry Format : [place] Height, Feet : 5 ft(Converted to: 152 cm, 60 Inch) Height, Inches : 4 Inch(Converted to: 0 ft 4 Inch, 10.16 cm) Clinical Height : 162.56 cm Weight Source, ED : Critical estimated dosing weight Weight Entry Format : [place] Weight, Pounds : 172 lb Clinical Dosing Weight : 78.18 kg Body Surface Area (BSA) : 1.84 m2 Body Mass Index : 29.6 kg/m2 (HI) [place] Body Weight (IBW) : 54.3 kg Dottie Baltazar RN - 06/19/2019 21:03 EDT Pain Assessment Pain Assessment : Initial assessment Pain Scale Used : 0-10 Scale Dottie Baltazar RN - 06/19/2019 21:03 EDT Pain Scale Intensity : 10 Dottie Baltazar RN - 06/19/2019 21:03 EDT Image 4 - Images currently included in the form version of this document have not been included in the text rendition version of the form. documented in this encounter Plan of Treatment Not on file documented as of this encounter Visit Diagnoses Not on filedocumented in this encounter Care Teams Inventory Analyst Relationship Specialty Start Date End Date Jayden Rowan MD [address] [place] [phone] PCP - General General Internal Medicine 07/05/22 documented as of this encounter
--- OUTSIDE RECORDS SUMMARY | 2024-07-29 15:58 | XMS_ITS | Encounter Summary ---
Author Organization [employer] Address [address] [place] [address] Care Team Providers Care Lye Treater Name Role Phone Jayden Rowan MD Primary Care Provider [phone] Encounter Details Date Type Department Care Team (Late st Contact Info) Description 06/19/2019 Transcribed Document [facility] [place] [facility] [place] [address] ProviderJason MD [address] [place] [address] Social History Tobacco Use Types Packs/Day Years Used Date Smoking Tobacco: Never Assessed Comments Unknown Sex and Gender Information Value Date Recorded Sex Assigned at Not on file Legal Sex Female 3:15 PM CDT Gender Identity Not on file Sexual Orientation Not on file documented as of this encounter Miscellaneous Notes * Cerner Conversion Note - Jason Zendejas MD - 06/19/2019 11:20 PM CDT ED Discharge Entered On: 06/19/2019 23:21 EDT Performed On: 06/19/2019 23:20 EDT by Mark Olmedo, Trial Consultant Process Patient Disposition : Discharge Personal Belongings With Patient : Yes Patient Education Completed : Yes Teaching Evaluation : Verbalizes understanding IV Discontinued : Not applicable Nursing Documentation Completed : Yes Mark Olmedo Rn - 06/19/2019 23:20 EDT ED Discharge Discharge To : Home without planned follow-up Mode Of Departure : Ambulatory Accompanied By : Unaccompanied Discharge Instructions Reviewed With, Opportunity For Questions Given : Patient Prescriptions Given to Patient : Yes Medications Given to Patient : Yes Mark Olmedo Rn - 06/19/2019 23:20 EDT documented in this encounter Plan of Treatment Not on file documented as of this encounter Visit Diagnoses Not on filedocumented in this encounter Care Teams Lye Treater Relationship Specialty Start Date End Date Jayden Rowan MD [address] [place] [phone] PCP - General General Internal Medicine 07/05/22 documented as of this encounter
--- OUTSIDE RECORDS SUMMARY | 2024-07-29 15:58 | XMS_ITS | Encounter Summary ---
Author Organization [employer] Address [address] [place] [address] Care Team Providers Care Flatwork Tier Name Role Phone Jayden Rowan MD Primary Care Provider [phone] Encounter Details Date Type Department Care Team (Late st Contact Info) Description 08/11/2020 Transcribed Document [facility] [place] [facility] include [facility] beds [facility] [place] [address] ProviderJason MD [address] [place] [address] Social History Tobacco Use Types Packs/Day Years Used Date Smoking Tobacco: Never Assessed Comments Unknown Sex and Gender Information Value Date Recorded Sex Assigned at Not on file Legal Sex Female 3:15 PM CDT Gender Identity Not on file Sexual Orientation Not on file documented as of this encounter Miscellaneous Notes * Cerner Conversion Note - Jason Zendejas MD - 08/11/2020 12:33 PM CDT Pain Assessment Entered On: 08/11/2020 13:48 EDT Performed On: 08/11/2020 13:48 EDT by RACHAEL QUINTANA RN Intervention Information: fentaNYL Performed by LOUIE GONZALEZ RN on 08/11/2020 13:04:00 EDT fentaNYL,100mcg IV Push,Right Lower Forearm,Pain Pain Assessment Pain Assessment : Follow-up assessment Pain Scale Used : 0-10 Scale Location : Head RACHAEL QUINTANA RN - 08/11/2020 13:48 EDT Pain Scale Intensity : 2 RACHAEL QUINTANA RN - 08/11/2020 13:48 EDT Image 4 - Images currently included in the form version of this document have not been included in the text rendition version of the form. documented in this encounter Plan of Treatment Not on file documented as of this encounter Visit Diagnoses Not on filedocumented in this encounter Care Teams Flatwork Tier Relationship Specialty Start Date End Date Jayden Rowan MD [address] [place] [phone] PCP - General General Internal Medicine 07/05/22 documented as of this encounter
[2024-07-29 17:55] LABS: Hemoglobin A1C 6.6 % (4.0-6.0)
== END 2024-07-29 23:59 | disposition home or self-care (01) ==
LOC: LAB.DROPOF 15:43
PROVIDERS: PCP Nurse Practitioner Family; Visit Provider Nurse Practitioner Family
DX: E11.9 Type 2 diabetes mellitus without complications (principal); G43.019 Migraine without aura, intractable, without status migrainosus; K21.9 Gastro-esophageal reflux disease without esophagitis; R42 Dizziness and giddiness; R53.83 Other fatigue; G25.81 Restless legs syndrome; F41.9 Anxiety disorder, unspecified; F32.A Depression, unspecified; E78.5 Hyperlipidemia, unspecified; I10 Essential (primary) hypertension
CPT/HCPCS: 80048; 80061; 83036

== ENCOUNTER 2024-07-31 11:13 | Outpatient (POV) | payer MEDICARE, MEDICAID, SELFPAY ==
--- OUTSIDE RECORDS SUMMARY | 2023-12-28 06:15 | XMS_ITS ---
Author Organization [facility] Address [address] [place] [address] Care Team Providers Care Housemaid Name Role Phone Enoc Crane Primary Care Provider [phone] ENOC Crane APRN Unavailable Unavailable REASON FOR VISIT 3 Month F/U Encounters Encounter Location Date Provider Diagnosis [facility] [address] [place], [place] [address] 12/28/2023 Enoc Crane Plan Of Treatment No Information Progress Notes * RAMIREZ, Alber:1955 (69 yo F)Acc No.[id number]:12/28/2023 Progress Notes Patient: Cecile HUSSEIN Provider: Monie Crane APRN :1955 A ge:68 Y S ex:Female Date:12/28/2023 Address:[address] [id number] Subjective: * Chief Complaints: * 1 . 3 Month F/U. * Medical History: Objective: * Vitals: Assessment: Plan: * Treatment: * * Electronic signature of Phan Crane APRN on 07/31/2024 at 11:17 AM EDT Sign off status: Pending * Provider: Monie Crane APRN Date: 02/26/2023 Generated for Printi ng/Faxing/eTransmitting on: 0 07/31/2024 11:17 AM EDT
--- OUTSIDE RECORDS SUMMARY | 2024-05-25 17:30 | XMS_ITS ---
Author Organization [facility] Address [address] [place] [address] Care Team Providers Care Pet Feeder Name Role Phone Enoc Crane Primary Care Provider ENOC Crane APRN Unavailable Unavailable Migration, Provider Unavailable Unavailable Allergies Allergen (clinical drug ingredient) Drug/Non Drug Allergy documented on EMR Reaction Allergy Type Onset Date Status PERCODAN (uncoded) hallunications Allergy Active ZOFRAN (uncoded) stomach upset Allergy Active hydromorphone Dilaudid vomiting Drug Allergy Act florecita morphine Morphine vomiting Drug Allergy Active REASON FOR VISIT [facility] Conversion Encounter Medications Medication SIG (Take, [...] Active Encounters Encounter Location Date Provider Diagnosis [facility] [address] [facility] [address] [place] [address] 05/25/2024 Provider Migration Plan Of Treatment Medication [...] Notes * Rivas RAMIREZB:1955 (69 yo F)Acc No.[id number]:05/25/2024 Patient: Mallory HUSSEINa Provider: Pankaj thomson Migration :1955 A ge:69 Y S ex:Female Date:05/25/2024 Address:[place], [id number] Pcp:Enoc Crane Subjective: * Chief Complaints: * 1 . Multum To Medispan Conversion Encounter. * Medical History: * Medications: T aking Trelegy Ellipta 200 MCG-62.5 MCG-25 MCG/INH POWDER 1 PUFF(S) INHALED ONCE A DAY , Notes to Pharmacist: *Please review and pick correct strength-formulation from [employer] options. If intended option is not shown, [...] Electronic signature of Prov ider Migration on 07/31/2024 at 11:16 AM EDT Sign off status: Pending * Provider: Pankaj thomson Migration Date: 0 05/25/2024 Generated for Yumiko robison/Margarette/Jimboitting on: 0 07/31/2024 11:16 AM EDT
--- OUTSIDE RECORDS SUMMARY | 2024-07-31 11:17 | XMS_ITS | Encounter Summary ---
Author Organization [employer] Address [address] [place] [address] Care Team Providers Care Warp Tester Name Role Phone Jayden Rowan MD Primary Care Provider [phone] Encounter Details Date Type Department Care Team (Late st Contact Info) Description 08/24/2021 Transcribed Document [facility] [place] [facility] [place] [address] ProviderJason MD [address] [place] [address] Social History Tobacco Use Types [...] on filedocumented in this encounter Care Teams Warp Tester Relationship Specialty Start Date End Date Jayden Rowan MD [address] [place] [phone] PCP - General General Internal Medicine 07/05/22 documented as of this encounter
--- OUTSIDE RECORDS SUMMARY | 2024-07-31 11:17 | XMS_ITS | Encounter Summary ---
Author Organization [email or web address] Address [address] [place] [address] Care Team Providers Care Respooler Name Role Phone Jayden Rowan MD Primary Care Provider [phone] Encounter Details Date Type Department Care Team (Late st Contact Info) Description 11/03/2020 Transcribed Document [facility] [place] [facility] [place] [address] ProviderJason MD [address] [place] [address] Social History Tobacco Use Types [...] Zendejas MD - 11/03/2020 10:54 AM CDT [place] Suicide Severity Rating Scale (C-SSRS) Entered On: 11/03/2020 11:16 EDT Performed On: 11/03/2020 11:14 EDT by BORIS METZ RN [place] Suicide Severity Rating Scale (C-SSRS) CSSRS Past Month Wish to be : No CSSRS Past Month Suicidal Thoughts : No CSSRS Lifetime Suicide Behavior : No Suicide Severity Rating Score : 0 Suicide Severity Rating : No Additional Care Required at this time BORIS METZ RN - 11/03/2020 11:14 EDT documented in this encounter Plan of Treatment Not on file documented as of this encounter Visit Diagnoses Not on filedocumented in this encounter Care Teams Respooler Relationship Specialty Start Date End Date Jayden Rowan MD [address] [place] [phone] PCP - General General Internal Medicine 07/05/22 documented as of this encounter
--- OUTSIDE RECORDS SUMMARY | 2024-07-31 11:17 | XMS_ITS | Encounter Summary ---
Author Organization [employer] Address [address] [place] [address] Care Team Providers Care Injection Moulding Machine Operator Name Role Phone Leanna Rivera MD Primary Care Provider [phone] Encounter Details Date Type Department Care Team (Late st Contact Info) Description 11/03/2020 Transcribed Document [facility] [place] [facility] [place] [address] ProviderJason MD [address] [place] [address] Social History Tobacco Use Types Packs/Day [...] MD - 11/03/2020 12:03 PM CDT J [facility] [address] [place] [address] MAMADOU RAMIREZChino BANKS :1955 Visit Time:11/03/2020 Your Visit Summary Your [...] Within 2 to 3 days Where: [address] [address]- [facility] (1) Allergies HYDROmorphone Imitrex Maxalt Zofran acetaminophen-HYDROcodone [...] these instructions at home: Medicines ??? Take jijq-ksz-hmlyxav and prescription medicines only as told by your health care provider. ??? Ask your health care provider if the medicine prescribed to you: ? Requires you to avoid driving or using heavy machinery. ? Can cause constipation. You may need to take these actions to prevent or treat constipation: ? Drink enough fluid to keep your urine pale yellow. ? Take ohlu-ewa-ckuiaxa or prescription medicines. ? Eat foods that [...] provider. Document Revised: 05/31/2019 Document Reviewed: 03/21/2019 [employer] Patient Education ?? 2020 [place]. Emergency Awareness and Preventative Care STROKE is [...] Assistance with quitting is available by contacting 4-898-ILME-NOW. This is a free resource providing counseling, [...] was given the opportunity to ask questions. Patient/Die Cutter Name: Patient/Die Cutter Signature: Relationship to Patient: Clinician/Hospital Die Cutter Signature: Please Provide a Telephone Number Where You Can Be Reached: Is it Permissible To Leave a Message? Date: Electronically signed by [facility] Conversion Superintendent Building Cerner at 06/09/2022 3:31 PM CDT documented in this encounter Plan of Treatment Not on file documented as of this encounter Visit Diagnoses Not on filedocumented in this encounter Care Teams Injection Moulding Machine Operator Relationship Specialty Start Date End Date Leanna Rivera MD [address] [place] [address] [place] [phone] PCP - General General Internal Medicine 07/05/22 documented as of this encounter
--- OUTSIDE RECORDS SUMMARY | 2024-07-31 11:17 | XMS_ITS | Encounter Summary ---
Author Organization [employer] Address [address] [facility] [place] [address] Care Team Providers Care Occup Ther Name Role Phone Jayden Rowan MD Primary Care Provider [phone] Encounter Details Date Type Department Care Team (Late st Contact Info) Description 10/19/2021 Transcribed Document [facility] [place] Family Medicine [address] [place] [address] ProviderJason MD [address] [place] [address] Social History Tobacco Use Types [...] on filedocumented in this encounter Care Teams Occup Ther Relationship Specialty Start Date End Date Usery, Jayden R, MD [address] [place] [phone] PCP - General General Internal Medicine 07/05/22 documented as of this encounter
--- OUTSIDE RECORDS SUMMARY | 2024-07-31 11:17 | XMS_ITS | Encounter Summary ---
Author Organization [email or web address] Address [address] [place] [address] Care Team Providers Care Locker Attendant Name Role Phone Jayden Rowan MD Primary Care Provider [phone] Encounter Details Date Type Department Care Team (Late st Contact Info) Description 10/02/2020 Transcribed Document [facility] [place] [facility] [place] [address] ProviderJason MD [address] [place] [address] Social History Tobacco Use Types Packs/Day [...] On: 10/02/2020 12:18 EDT by Tori Rolon systems analyst developer Process Patient Disposition : Discharge Personal Belongings [...] - 10/02/2020 12:18 EDT Electronically signed by [facility] Conversion Amalgamator Cerner at 06/09/2022 3:29 PM CDT documented in this encounter Plan of Treatment Not on file documented as of this encounter Visit Diagnoses Not on filedocumented in this encounter Care Teams Locker Attendant Relationship Specialty Start Date End Date Jayden Rowan MD [address] [place] [phone] PCP - General General Internal Medicine 07/05/22 documented as of this encounter
--- OUTSIDE RECORDS SUMMARY | 2024-07-31 11:17 | XMS_ITS | Encounter Summary ---
Author Organization [employer] Address [address] [place] [address] Care Team Providers Care Power Marketer Name Role Phone Leanna Rivera MD Primary Care Provider [phone] Encounter Details Date Type Department Care Team (Late st Contact Info) Description 10/19/2021 Transcribed Document [facility] [place] [facility] [place] [address] ProviderJason MD [address] [place] [id number] Social History Tobacco Use Types Packs/Day Years [...] EDT Height Source Stated Height Entry Format [place] Height/Length, PALAUAN (ft) 5 ft Height/Length PALAUAN 3 Inch CLINICALHEIGHT 160.02 cm [place] Body Weight 52.02 kg Weight Source, ED Critical estimated dosing weight Weight Entry Format [place] Weight [place] lb 136 lb CLINICALWEIGHT 61.82 kg Body [...] Return if worse.. Electronically signed by Tadeo [facility] Conversion Metal Sander Cerner at 06/09/2022 3:26 PM CDT documented in this encounter Plan of Treatment Not on file documented as of this encounter Visit Diagnoses Not on filedocumented in this encounter Care Teams Power Marketer Relationship Specialty Start Date End Date Leanna Rivera MD [address] [place] [phone] PCP - General General Internal Medicine 07/05/22 documented as of this encounter
--- OUTSIDE RECORDS SUMMARY | 2024-07-31 11:17 | XMS_ITS | Encounter Summary ---
Author Organization [facility] Address [address] [place] [address] Care Team Providers Care Sustainability Communicator Name Role Phone Leanna Rivera MD Primary Care Provider [phone] Encounter Details Date Type Department Care Team (Late st Contact Info) Description 05/10/2021 Transcribed Document [facility] Radiology [address] [place] [address] Lisa Rivera MD [facility] [place] [address] Social History Tobacco Use Types Packs/Day Years [...] blocks. Pt is considering establishing care with painter but has not yet done so.. Review [...] EDT Height Source Stated Height Entry Format [place] Height/Length, NAURUAN (ft) 5 ft Height/Length NAURUAN 3 Inch CLINICALHEIGHT 160.02 cm [place] Body Weight 52.02 kg Weight Source, ED Standing scale Weight Entry Format [place] Weight Guamanian lb 140 lb CLINICALWEIGHT 63.64 kg Body [...] Triage: ED C-SSRS: ED Clinical Reconciliation: ED engineer sergeant: fentaNYL: 100 mcg, IntraMuscular, 1-Time promethazine: 25 [...] with specialist Within 2 to 4 days television specialist; JOSHUA MCNEAL Within 2 to 4 days One option for painter. Counseled: Patient, Regarding treatment plan. documented in this encounter Plan of Treatment Not on file documented as of this encounter Visit Diagnoses Not on filedocumented in this encounter Care Teams Sustainability Communicator Relationship Specialty Start Date End Date Leanna Rivera MD [address] [place] [phone] PCP - General General Internal Medicine 07/05/22 documented as of this encounter
--- OUTSIDE RECORDS SUMMARY | 2024-07-31 11:18 | XMS_ITS | Encounter Summary ---
Author Organization [facility] Address [address] [place] [address] Care Team Providers Care Patient Safety Officer Name Role Phone Jayden Rowan MD Primary Care Provider [phone] Encounter Details Date Type Department Care Team (Late st Contact Info) Description 06/10/2020 Transcribed Document [facility] Family Medicine [facility] [place] [address] ProviderJason MD [address] [place] [address] Social History Tobacco Use Types [...] on filedocumented in this encounter Care Teams Patient Safety Officer Relationship Specialty Start Date End Date Jayden Rowan MD [address] [place] [phone] PCP - General General Internal Medicine 07/05/22 documented as of this encounter
--- OUTSIDE RECORDS SUMMARY | 2024-07-31 11:18 | XMS_ITS | Encounter Summary ---
Author Organization [facility] Address [address] [place] [address] Care Team Providers Care Keeper Helper Name Role Phone Jayden Rowan MD Primary Care Provider [phone] Encounter Details Date Type Department Care Team (Late st Contact Info) Description 06/26/2020 Transcribed Document [facility] [place] [address] ProviderJason MD [address] [place] [address] Social History Tobacco Use Types Packs/Day [...] On: 06/26/2020 17:12 EDT by Tori Rolon physical scientist Process Patient Disposition : Discharge Personal Belongings [...] - 06/26/2020 17:12 EDT Electronically signed by [facility] Conversion Shoe Reconditioner Cerner at 06/09/2022 3:27 PM CDT documented in this encounter Plan of Treatment Not on file documented as of this encounter Visit Diagnoses Not on filedocumented in this encounter Care Teams Keeper Helper Relationship Specialty Start Date End Date Jayden Rowan MD [address] [place] [phone] PCP - General General Internal Medicine 07/05/22 documented as of this encounter
--- OUTSIDE RECORDS SUMMARY | 2024-07-31 11:18 | XMS_ITS | Encounter Summary ---
Author Organization [facility] Address [address] [place] [address] Care Team Providers Care Reading Tutor Name Role Phone Leanna Rivera MD Primary Care Provider [phone] Encounter Details Date Type Department Care Team (Late st Contact Info) Description 05/23/2018 Transcribed Document [facility] Family Medicine Replaced by [facility] [address] ProviderJason MD [address] [place] [address] Social History Tobacco Use Types Packs/Day [...] Zendejas MD - 05/23/2018 6:05 PM CDT [address] [address] Patient Information Name: CECILE RAMIREZ Age: 63 Years Date of : 1955 Arrival Time: 05/23/2018 17:19:00 Diagnosis Migraine Primary Care Physician: LEANNA RIVERA MD-INT Provider Information Primary Provider: TONEY JORGENSEN MD Secondary Provider: CECILE RAMIREZ has been given the following list of patient education materials, prescriptions and follow-up instructions: Follow-up Instructions: With: Address: When: LEANNA RIVERA [address] [facility], [address] [place] [id number] Business (1) Within 2 to 3 days [...] these instructions at home: Medicines ??? Take oaxj-hgb-ytsilxr and prescription medicines only as told by your health care provider. ??? Do notdrive or use heavy machinery while taking prescription pain medicine. ??? To prevent or treat constipation while you are taking prescription pain medicine, your health care provider may recommend that you: ? Drink enough fluid to keep your urine clear or pale yellow. ? Take nlql-jaq-rynodby or prescription medicines. ? Eat foods that [...] 02/06/2006 Document Revised: 08/26/2016 Document Reviewed: 07/25/2016 [employer] Interactive Patient Education ? 2017 [employer] Allergies: acetaminophen-HYDROcodone; Maxalt; Imitrex; Zofran; HYDROmorphone; [...] verify that CECILE RAMIREZ was seen at [facility] Emergency Department on ,05/23/2018 18:05:18. This is [...] along the way. As a healthcare provider, [facility] recommends that you stop smoking. Assistance with quitting is available by contacting 4-116-QFFW-NOW. This is a free resource providing counseling, [...] Electronic Communications Privacy Act 18 U.S.C. ???Sections 3420-4606,?? and contain information intended for the specified [...] Be sure to sign up for the Permission[employer] patient portal, which gives you 12/09 access to your medical information ??? including these discharge instructions ??? using your computer, smartphone, or tablet. Just go to Summify to get started. Questions? Call . Acknowledgment [...] Yes____ No____ Nurse Providing Instructions: Emergency Physician: Electronically signed by Jolie Piedra Conversion Shirt Folding Machine Operator Cerner at 06/09/2022 3:26 PM CDT documented in this encounter Plan of Treatment Not on file documented as of this encounter Visit Diagnoses Not on filedocumented in this encounter Care Teams Reading Tutor Relationship Specialty Start Date End Date Leanna Rivera MD [address] [place], [place] [address], [place] [address] PCP - General General Internal Medicine 07/05/22 documented as of this encounter
--- OUTSIDE RECORDS SUMMARY | 2024-07-31 11:18 | XMS_ITS | Encounter Summary ---
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 Broset Violence Assessment Entered On: 02/06/2020 13:24 EST Performed On: 02/06/2020 13:20 EST by RACHAEL QUINTANA RN Broset Violence Assessment Broset Violence Checklist of Symptoms : None Broset Violence Symptoms Subtotal : 0 Broset Violence Symptoms Indicator : Low risk (0) Broset Interventions : Bob White precautions for safety used RACHAEL QUINTANA RN - 02/06/2020 13:20 EST Electronically signed by Tadeo [facility] Conversion Aircraft Electronics Technical Officer Cerner at 06/09/2022 3:30 PM CDT documented in this encounter Plan of Treatment Not on file documented as of this encounter Visit Diagnoses Not on filedocumented in this encounter Care Teams Clamp Jig Assembler Relationship Specialty Start Date End Date Jayden Rowan MD [address] [place] [phone] PCP - General General Internal Medicine 07/05/22 documented as of this encounter
--- OUTSIDE RECORDS SUMMARY | 2024-07-31 11:18 | XMS_ITS | Patient Health Record ---
Author Organization [facility] Address [address] [place] [address] Care Team Providers Care High Density Talc Coater Operator Name Role Phone Livier Crane Primary Care Provider LIVIER Crane APRN Unavailable Unavailable Manpreet Lemus Unavailable [phone] Migration, Provider Unavailable Unavailable Allergies Allergen (clinical drug ingredient) Drug/Non Drug Allergy documented on EMR Reaction Allergy Type Onset Date Status PERCODAN (uncoded) hallunications Allergy Active ZOFRAN (uncoded) stomach upset Allergy Active hydromorphone Dilaudid vomiting Drug Allergy Act florecita morphine Morphine vomiting Drug Allergy Active Results Component Value Reference Range Notes LIPID PANEL, STANDARD (7600) Reviewed date:09/22/2023 01:50:40 PM Interpretation: Performing Lab:CB, [facility] [id number] [facility] Rob Hu Notes/Report: NON-FASTING; NON-FASTING; NON-FASTING; NON-FASTING; NON-FAST FASTING:YES FASTING: YES CHOLESTEROL, TOTAL 130 <200 mg/dL HDL CHOLESTEROL 45 > OR = 50 mg/dL TRIGLYCERIDES 181 <150 mg/dL LDL-CHOLESTEROL 59 Reference range: <100 Desirable range <100 mg/dL for primary prevention; <70 mg/dL for patients with CHD or diabetic patients with > or = 2 CHD risk factors. LDL-C is now calculated using the Donell calculation, which is a validated novel method providing better accuracy than the Friedewald equation in the estimation of LDL-C. Warren BEYER et al. ALLAN. 2013;310(19): 4051-2600 (http://education.[employer].MTEM Limited/faq/TFE877) CHOL/HDLC RATIO 2.9 <5.0 (calc) NON HDL CHOLESTEROL 85 <130 mg/dL (calc) For patients with diabetes plus 1 major ASCVD risk factor, treating to a non-HDL-C goal of <100 mg/dL (LDL-C of <70 mg/dL) is considered a therapeutic option. COMPREHENSIVE METABOLIC PANE ([address]) Reviewed date:09/22/2023 01:50:40 PM Interpretation: Performing Lab:CB, [facility] [id number], 4 the starsHbqvQC[address] Rob Hu Notes/Report: NON-FASTING; NON-FASTING; NON-FASTING; NON-FASTING; NON-FAST FASTING:YES FASTING: YES GLUCOSE 97 65-99 mg/dL Fasting reference interval UREA NITROGEN (BUN) 6 7-25 mg/dL CREATININE 0.57 0.50-1.05 mg/dL EGFR 100 > OR = 60 mL/min/1.73m2 BUN/CREATININE RATIO 11 6-22 (calc) SODIUM 140 135-146 mmol/L POTASSIUM 4.2 3.5-5.3 mmol/L CHLORIDE 104 98-110 mmol/L CARBON DIOXIDE 23 20-32 mmol/L CALCIUM 9.1 8.6-10.4 mg/dL PROTEIN, TOTAL 6.7 6.1-8.1 g/dL ALBUMIN 3.8 3.6-5.1 g/dL GLOBULIN 2.9 1.9-3.7 g/dL (calc) ALBUMIN/GLOBULIN RATIO 1.3 1.0-2.5 (calc) BILIRUBIN, TOTAL 0.3 0.2-1.2 mg/dL ALKALINE PHOSPHATASE 59 37-153 U/L AST 19 10-35 U/L ALT 16 6-29 U/L CBC (INCLUDES DIFF/PLT) (639 9) Reviewed date:09/22/2023 01:50:40 PM Interpretation: Performing Lab:CB, [facility] [address], [place]culogicaRduqJZ[address] Rob Hu Notes/Report: NON-FASTING; NON-FASTING; NON-FASTING; NON-FASTING; NON-FAST FASTING:YES FASTING: YES WHITE BLOOD CELL COUNT 7.9 3.8-10.8 Thousand/ uL RED BLOOD CELL COUNT 4.95 3.80-5.10 Million/uL HEMOGLOBIN 12.3 11.7-15.5 g/dL HEMATOCRIT 39.5 35.0-45.0 % MCV 79.8 80.0-100.0 fL MCH 24.8 27.0-33.0 pg MCHC 31.1 32.0-36.0 g/dL RDW 14.4 11.0-15.0 % PLATELET COUNT 236 140-400 Thousand/uL MPV 10.1 7.5-12.5 fL ABSOLUTE NEUTROPHILS 5230 2529-1210 cells/uL ABSOLUTE LYMPHOCYTES 6862 913-2090 cells/uL ABSOLUTE MONOCYTES 545 200-950 cells/uL ABSOLUTE EOSINOPHILS 300 15-500 cells/uL ABSOLUTE BASOPHILS 40 0-200 cells/uL NEUTROPHILS 66.2 LYMPHOCYTES 22.6 MONOCYTES 6.9 EOSINOPHILS 3.8 BASOPHILS 0.5 HEMOGLOBIN A1c (496) Reviewed date:09/22/2023 01:50:40 PM Interpretation: Performing Lab:YOLANDA [facility], [facility] Hospital[facility]idoOD[address] Rob Hu Notes/Report: NON-FASTING; NON-FASTING; NON-FASTING; NON-FASTING; NON-FAST FASTING:YES FASTING: YES HEMOGLOBIN A1c 7.3 <5.7 % of total Hgb For someone without known diabetes, a hemoglobin A1c value of 6.5% or greater indicates that they may have diabetes and this should be confirmed with a follow-up test. For someone with known diabetes, a value <7% indicates that their diabetes is well controlled and a value greater than or equal to 7% indicates suboptimal control. A1c targets should be individualized based on duration of diabetes, age, comorbid conditions, and other considerations. Currently, no consensus exists regarding use of hemoglobin A1c for diagnosis of diabetes for children. This test was performed on the Ramila fuentes c503 platform. Effective 04/26/23, a change in test platforms from the Espino Property Claims Adjuster to the Ramila fuentes c503 may have shifted HbA1c results compared to historical results. Based on laboratory validation testing conducted at [employer], the Ramila platform relative to the Espino platform had an average increase in HbA1c value of < or = 0.3%. This difference is within accepted variability established by the National Glycohemoglobin Standardization Program. Note that not all individuals will have had a shift in their results and direct comparisons between historical and current results for testing conducted on different platforms is not recommended. VITAMIN B12 (927) Reviewed date:09/22/2023 01:50:40 PM Interpretation: Performing Lab:CB, [facility] [address], [place] CrainHfqjAN[address] Rob Hu Notes/Report: NON-FASTING; NON-FASTING; NON-FASTING; NON-FASTING; NON-FAST FASTING:YES FASTING: YES VITAMIN B12 582 328-2620 pg/mL Reason For Referral No Information Medications Medication SIG (Take, Route, Frequency, Duration) Notes Start Date End Date Status Ipratropium-Albuter ol 0.5-2.5 (3) MG/3ML 3 mL by nebulizer 4 times a day for 90 days Active ALBUTEROL (EQV-PROVENTIL HFA) 90 MCG/INH 2 PUFF(S) INHALED EVERY 6 HOURS for 30 DAYS *Please review for potential replacement for e-prescription and drug interaction check* 08/21/2023 Active Trulicity 1.5 MG/0.5 ML 1.5MG SUBCUTANEOUSLY ONCE A WEEK for 28 DAYS *Please review and pick correct strength-formulati on from Satellier options. If intended option is not shown, discontinue and re-order from Quick Search* Active Atorvastatin Calcium 80 MG 1 tab(s) orally at bedtime for 90 days Active clonazePAM 1 MG 1 tab(s) orally twic e a day prn for anxiety for 30 days 10/09/2023 Active Trelegy Ellipta 200 MCG-62.5 MCG-25 MCG/INH 1 PUFF(S) INHALED ONCE A DAY *Please review and pick correct strength-formulati on from Satellier options. If intended option is not shown, discontinue and re-order from Quick Search* Active Sertraline HCl 100 MG 2 tabs orally once a day Active Promethazine HCl 25 MG 1 tab(s) orally every 8 hours prn for 7 days Active GLUCOMETER NA USE FOR BID FSBS TESTING NA TWICE DAILY for 30 DAYS *Please review for potential replacement for e-prescription and drug interaction check* 06/08/2023 Active rOPINIRole HCl 2 MG 1 tab(s) orally once a day and 1 as needed Active Immunizations Vaccine Route Administration Date Status Comme nts Fluzone High Dose IM Intramuscular 12/20/2022 Administered Social History Tobacco Use: Social History Observation Description Date Details (start date - stop date) Current Smoker NA - NA Smoking: Question Answer Notes Are you a: current smoker How often do you smoke cigarettes? every day How many cigarettes a day do you smoke? 11-20 How soon after you wake up d o you smoke your first cigarette? 6-30 min Are you interested in quitting? Ready to quit Additional Findings: Tobacco User Modera te cigarette smoker (10-19 cigs/day) Problems Problem Type SNOMED Code ICD Code Onset Dates Problem Status W/U Status Risk Notes Problem 184035343 Mixed hyperlipidemia (E78.2) Active confirmed Problem 208117245 Depression with anxiety (F41.8) Active confirmed Problem 471263418 COPD exacerbatio n (J44.1) Active confirmed Problem 24498770 RLS (restless le gs syndrome) (G25.81) Active confirmed Problem Type 2 diabetes mellitus (E11.9) Active confirmed Problem 522462841 Tobacco use disorder (F17.200) Active confirmed Problem 107333094 Migraine with status migrainosus, not intractable, unspecified migraine type (G43.901) Active confirmed Vital Signs Heart Rate 96 /min 09/21/2023 Temperature 97.8 degrees Fahrenheit 09/21/2023 Blood pressure diastolic 60 mm Hg 09/21/2023 Height 63 in 09/21/2023 Blood pressure systolic 112 mm Hg 09/21/2023 Weight 149.6 lbs 09/21/2023 BMI 26.5 kg/m2 09/21/2023 Encounters Encounter Location Date Provider Diagnosis [facility] [address] [place] [address] 05/25/2024 Provider Migration [facility] [address] [place] [address] 08/21/2023 Manpreet Lemus COPD exacerbation J44.1 ; Wrist pain, right M25.531 ; Unspecified fall, initial encounter W19.XXXA and Unspecified place in unspecified non-institutional (private) residence as the place of occurrence of the external cause Y92.009 [facility] [address] [place] [address] 09/21/2023 Livier McNees Migraine with status migrainosus, not intractable, unspecified migraine type G43.901 ; Type 2 diabetes mellitus E11.9 ; B12 deficiency E53.8 ; Tremor R25.1 ; Depression with anxiety F41.8 ; Mixed hyperlipidemia E78.2 ; 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 ; Tobacco use disorder F17.200 and RLS (restless legs syndrome) G25.81 [facility] [address] [place] [address] 08/07/2023 Manpreet Besson Acute cystitis witho ut hematuria N30.00 [facility] [address] [facility] [address] [place] [address] 08/23/2023 Livier McNees [facility] [address] [facility] [address] [place] [address] 08/23/2023 Manpreet Besson [facility] [address] [facility] [address] [place] [address] 08/28/2023 Manpreet Besson Asymptomatic age-related postmenopausal state Z78.0 [facility] [address] [facility] [address] [place] [address] 09/04/2023 Livier McNees [facility] [address] [facility] [address] [place] [address] 09/11/2023 Manpreet Besson Acute cystitis witho ut hematuria N30.00 [facility] [address] [facility] [address] [place] [address] 09/22/2023 Livier McNees [facility] [address] [facility] [address] [place] [address] 10/09/2023 Manpreet Besson [facility] [address] [facility] [address] [place] [address] 10/20/2023 Livier McNees Assessments Encounter Date Diagnosis (ICD Code) Assessment Notes Treatment Notes Treatment Clinical Notes Section Notes 08/07/2023 Acute cystitis without hematuria (ICD-10 - N30.00) 08/21/2023 COPD exacerbation (ICD-10 - J44.1) COPD exacerbation. Treat as noted with internal muscular dexamethasone followed by Elaina. Add Proventil for rescue inhaler, we will check on nebulizer status 08/21/2023 Wrist pain, right (ICD-10 - M25.531) Check x-ray. Patient is a high fall risk. We will address this at her next wellness exam 08/28/2023 Asymptomatic age-related postmenopausal state (ICD-10 - Z78.0) 09/11/2023 Acute cystitis without hematuria (ICD-10 - N30.00) 09/21/2023 Type 2 diabetes mellitus (ICD-10 - E11.9) Diabetic diet, yearly eye exams, monitor feet daily for lesions, supportive footwear. Will check A1c and treat as indicated 09/21/2023 Migraine with status migrainosus, not intractable, unspecified migraine type (ICD-10 - G43.901) Long history of uncontrolled migraines. Dr. Stephen notes reviewed. Agree with Dr. Stephen that mood disorder is contributing to her headaches. Recommend neuropsych referral, patient declines. Recommend referral to headache clinic, declines. Reiterated that our clinic will NOT give her any controlled substances for her migraines. Discussed hydration and need for regular, balanced meals, outdoor activities/exerci se and trigger (sunlight) etc - avoidance. 09/21/2023 B12 deficiency (ICD-10 - E53.8) Continue OTC b12 supplement, will check level today and treat as indicated. 08/21/2023 Unspecified fall, initial encounter (ICD-10 - W19.XXXA) 08/21/[address] unspecified non-institutional (private) residence as the place of occurrence of the external cause (ICD-10 - Y92.009) 09/21/2023 Tremor (ICD-10 - R25.1) Chronic, at baseline. Keep FU with neurology 09/21/2023 Depression with anxiety (ICD-10 - F41.8) Stable on current regimen. No changes made today. CSA UTD on chart. tanisha report reviewed and is appropriate - discussed ongoing use of controlled medication and safety associated with these medications 09/21/2023 Mixed hyperlipidemia (ICD-10 - E78.2) Tolerating statin well. Will check fasting lipid panel and treat as indicated 09/21/2023 COPD with chronic bronchitis (ICD-10 - J44.89) Stop smoking. Not interested. Trelegy as above. Past due for CT lung screening. CTA's x 2 this year in ED with no suspicious masses or nodes noted, appear stable 09/21/2023 Tobacco use disorder (ICD-10 - F17.200) Smoking cessation counseling provided. 09/21/2023 RLS (restless legs syndrome) (ICD-10 - G25.81) At baseline on requip. Plan Of Treatment Pending Test Test Name Order Date X ray : Wrist, Right 08/21/2023 DEXA Hip and Spine - Screening Mammogram : Bilateral 06/15/2023 M-Complete Blood Count Auto Diff 024 M-Comprehensive Metabolic Panel 04/04/19 CT Scan : Chest, Lung Cancer Screening 0 06/15/2023 Lipid Panel 06/15/2023 COMP METABOLIC PANEL 06/15/2023 CBC AUTO W DIFF 06/15/2023 Insurance Providers Payer Name Payer Address Payer Phone Subscriber Number Group Number Insured Name Patient Relationship to Insured Coverage Start Date Coverage End Date [facility] [address] [address] [place] [address] [id number] Cecile Escobedo Self - patient is the insured Medications Administered Medication Instructions Date of Administration Dosage Notes Dexamethasone 4mg Injection 12/20/2022 4 mL Dexamethasone 4mg Injection 05/15/2023 4 mg Dexamethasone 4mg Injection 08/21/2023 4 mg Medical (General) History Medical History History ICD Code COPD Diabetes Hyperlipidemia Depression/Anxiety RLS Migraine B12 def Surgical History Surgery Date(Month/Year) Appendectomy 1968 Total hysterectomy 2000 Cholecysyectomy 2002 Hernia repair 2000 bladder retuck Hospitalization History Reason Date(Month/Year) mild stroke 2014 all above surgeries Bacterial infection 2016
--- OUTSIDE RECORDS SUMMARY | 2024-07-31 11:18 | XMS_ITS | Encounter Summary ---
Author Organization [employer] Address [address] [place] [address] Care Team Providers Care Back Tender Paper Machine Name Role Phone Jayden Rowan MD Primary Care Provider [phone] Encounter Details Date Type Department Care Team (Late st Contact Info) Description 02/06/2020 Transcribed Document [facility] [facility] [place] [address] ProviderJason MD [address] [place] [address] Social History Tobacco Use Types Packs/Day [...] Jason Zendejas MD - 02/06/2020 1:15 PM PANELBOARD ASSEMBLER [place] Suicide Severity Rating Scale (C-SSRS) Entered On: 02/06/2020 13:24 EST Performed On: 02/06/2020 13:20 EST by RACHAEL QUINTANA RN [place] Suicide Severity Rating Scale (C-SSRS) CSSRS Past Month Wish to be : No CSSRS Past Month Suicidal Thoughts : No CSSRS Lifetime Suicide Behavior : No Suicide Severity Rating Score : 0 Suicide Severity Rating : No Additional Care Required at this time RACHAEL QUINTANA RN - 02/06/2020 13:20 EST Electronically signed by Tadeo [facility] Conversion Entertainment Agent Cerner at 06/09/2022 3:31 PM CDT documented in this encounter Plan of Treatment Not on file documented as of this encounter Visit Diagnoses Not on filedocumented in this encounter Care Teams Back Tender Paper Machine Relationship Specialty Start Date End Date Jayden Rowan MD [address] [place] [phone] PCP - General General Internal Medicine 07/05/22 documented as of this encounter
--- OUTSIDE RECORDS SUMMARY | 2024-07-31 11:18 | XMS_ITS | Encounter Summary ---
Author Organization [employer] Address [address] [place] [address] Care Team Providers Care Creative Producer Name Role Phone Leanna Rivera MD Primary Care Provider [phone] Encounter Details Date Type Department Care Team (Late st Contact Info) Description 10/02/2020 Transcribed Document [facility] [place] [address] ProviderJason MD [address] [place] [address] Social History Tobacco Use Types Packs/Day [...] Zendejas MD - 10/02/2020 12:11 PM CDT [facility] [address] [place] [address] MAMADOU RAMIREZChino BANKS :1955 Visit Time:10/02/2020 Your Visit Summary Your [...] When Within 2 to 3 days Where: [address] [place] [address] [address] [place] [address] Business (1) Allergies HYDROmorphone Imitrex Maxalt Zofran [...] these instructions at home: Medicines ??? Take axsq-seh-igonxpr and prescription medicines only as told by your health care provider. ??? Ask your health care provider if the medicine prescribed to you: ? Requires you to avoid driving or using heavy machinery. ? Can cause constipation. You may need to take these actions to prevent or treat constipation: ? Drink enough fluid to keep your urine pale yellow. ? Take vooq-vft-iiybplv or prescription medicines. ? Eat foods that [...] provider. Document Revised: 05/31/2019 Document Reviewed: 03/21/2019 [employer] Patient Education ?? [address] Emergency Awareness and Preventative Care STROKE is [...] Assistance with quitting is available by contacting 4-325-JTJX-NOW. This is a free resource providing counseling, [...] was given the opportunity to ask questions. Patient/Reading Intervention Teacher Name: Patient/Reading Intervention Teacher Signature: Relationship to Patient: Clinician/Hospital Reading Intervention Teacher Signature: Please Provide a Telephone Number Where You Can Be Reached: Is it Permissible To Leave a Message? Date: documented in this encounter Plan of Treatment Not on file documented as of this encounter Visit Diagnoses Not on filedocumented in this encounter Care Teams Creative Producer Relationship Specialty Start Date End Date Leanna Rivera MD [address] [place] [address] [place] [phone] PCP - General General Internal Medicine 07/05/22 documented as of this encounter
--- OUTSIDE RECORDS SUMMARY | 2024-07-31 11:18 | XMS_ITS | Encounter Summary ---
Author Organization [employer] Address [address] [place] [address] Care Team Providers Care District Loss Prevention Manager Name Role Phone Leanna Rivera MD Primary Care Provider [phone] Encounter Details Date Type Department Care Team (Late st Contact Info) Description 09/05/2018 Transcribed Document [facility] Radiology [address] [place] [id number] Gali Garrett MD One [facility] Dept [place] [address] Social History Tobacco Use Types Packs/Day Years [...] EDT Height Source Stated Height Entry Format [place] Height/Length, CYMRO (ft) 5 ft Height/Length CYMRO 4 Inch CLINICALHEIGHT 162.56 cm Turner Body Weight 54.3 kg Weight Source, ED Critical estimated dosing weight Weight Entry Format [place] Weight [place] lb 162 lb CLINICALWEIGHT 73.64 kg Body [...] on filedocumented in this encounter Care Teams District Loss Prevention Manager Relationship Specialty Start Date End Date Leanna Rivera MD [address] [place] [phone] PCP - General General Internal Medicine 07/05/22 documented as of this encounter
--- OUTSIDE RECORDS SUMMARY | 2024-07-31 11:18 | XMS_ITS | Encounter Summary ---
Author Organization [employer] Address [address] [place] [address] Care Team Providers Care Senior Web Analyst Name Role Phone Jayden Rowan MD Primary Care Provider [phone] Encounter Details Date Type Department Care Team (Late st Contact Info) Description 04/08/2018 Transcribed Document [facility] [place] [facility] [place] [address] ProviderJason MD [address] [place] [address] Social History Tobacco Use Types Packs/Day [...] Jason Zendejas MD - 04/08/2018 3:24 PM RADIO AERIAL INSTALLER Patient: CECILE RAMIREZ Age: 63 years Sex: [...] route. There was no reported trauma. Our Pecan Picker has spoken with her [id number]. The patient has reportedly been stating that [...] Fall Risk Assessment: ED Clinical Reconciliation: ED paper testing supervisor: Normal Saline Flush: 10 mL, IV Push, [...] % 29.4 % Lymph # 2.57 x10(3)/uL [place] % 6.7 % [place] # 0.59 K/uL Eos % 3.3 % Eos # 0.29 x10(3)/uL Baso % 0.6 % Baso # 0.05 x10(3)/uL Slide Review No IG# 0.04 x10(3)/uL IG% 0.50 % PT 10.0 Second(s) INR 0.9 Urine Type U CleanCatch Urine Color Yellow Urine Appearance Clear Urine Specific [place] 1.007 Urine pH Dipstick 6.5 Urine Leukocyte [...] Radiology results: Radiology Results (Last 48 hours) [id number] -- 04/08/2018 15:14 CT Head WO (04/08/2018 [...] Stable. Counseled: Patient, Family. Electronically signed by [facility], [facility] Conversion Lehr Cutter Cerner at 06/09/2022 3:28 PM CDT documented in this encounter Plan of Treatment Not on file documented as of this encounter Visit Diagnoses Not on filedocumented in this encounter Care Teams Senior Web Analyst Relationship Specialty Start Date End Date Jayden Rowan MD [address] [place] [phone] PCP - General General Internal Medicine 07/05/22 documented as of this encounter
--- OUTSIDE RECORDS SUMMARY | 2024-07-31 11:18 | XMS_ITS | Encounter Summary ---
Author Organization [employer] Address [address] [facility] [address] Care Team Providers Care Physical Science Technician Name Role Phone Jayden Rowan MD Primary Care Provider [phone] Encounter Details Date Type Department Care Team (Late st Contact Info) Description 08/11/2020 Transcribed Document [facility] [place] [facility] [place] [address] ProviderJason MD [address] [place] [address] Social History Tobacco Use Types [...] on filedocumented in this encounter Care Teams Physical Science Technician Relationship Specialty Start Date End Date Jayden Rowan MD [address] [place] [phone] PCP - General General Internal Medicine 07/05/22 documented as of this encounter
--- OUTSIDE RECORDS SUMMARY | 2024-07-31 11:18 | XMS_ITS | Encounter Summary ---
Author Organization [employer] Address [address] [place] [address] Care Team Providers Care Occupational Safety And Health Manager Name Role Phone Jayden Rowan MD Primary Care Provider [phone] Encounter Details Date Type Department Care Team (Late st Contact Info) Description 02/06/2020 Transcribed Document [facility] [place] [place] [facility] [place] [address] ProviderJason MD [address] [place] [address] Social History Tobacco Use Types Packs/Day [...] Jason Zendejas MD - 02/06/2020 2:02 PM CAR PUSHER ED Discharge Entered On: 02/06/2020 14:03 EST [...] Tori Rolon RN - 02/06/2020 14:02 EST Electronically signed by Tadeo, [facility] Conversion Director Orange Cerner at 06/09/2022 3:27 PM CDT documented in this encounter Plan of Treatment Not on file documented as of this encounter Visit Diagnoses Not on filedocumented in this encounter Care Teams Occupational Safety And Health Manager Relationship Specialty Start Date End Date Jayden Rowan MD [address] [place] [phone] PCP - General General Internal Medicine 07/05/22 documented as of this encounter
--- OUTSIDE RECORDS SUMMARY | 2024-07-31 11:18 | XMS_ITS | Encounter Summary ---
Author Organization [employer] Address [address] [place] [address] Care Team Providers Care Parts Salesman Name Role Phone Jayden Rowan MD Primary Care Provider [phone] Encounter Details Date Type Department Care Team (Late st Contact Info) Description 03/04/2019 Transcribed Document [facility] [place] [facility] [place] [address] ProviderJason MD [address] [place] [address] Social History Tobacco Use Types Packs/Day Years Used Date Smoking Tobacco: Never Assessed Comments Unknown Sex and Gender Information Value Date Recorded Sex Assigned at Not on file Legal Sex Female 3:15 PM CDT Gender Identity Not on file Sexual Orientation Not on file documented as of this encounter Miscellaneous Notes * Cerner Conversion Note - Jason ProviderMD - 03/04/2019 1:08 AM THREADING MACHINE OPERATOR ED Discharge Entered On: 03/04/2019 1:09 EST [...] 03/04/2019 1:08 EST Electronically signed by Tadeo [facility] Conversion Business System Consultant Cerner at 06/09/2022 3:29 PM CDT documented in this encounter Plan of Treatment Not on file documented as of this encounter Visit Diagnoses Not on filedocumented in this encounter Care Teams Parts Salesman Relationship Specialty Start Date End Date Jayden Rowan MD [address] [place] [phone] PCP - General General Internal Medicine 07/05/22 documented as of this encounter
--- OUTSIDE RECORDS SUMMARY | 2024-07-31 11:18 | XMS_ITS | Encounter Summary ---
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 C/O shoulder and wrist pain Chung Wasserman, Director Emergency Services - 06/20/2018 5:28 EDT DCP GENERIC CODE Tracking Acuity : 4 - Non - Urgent Tracking Group : [facility] ED [place], Director Emergency Services - 06/20/2018 5:28 [...] 63 mmHg Oxygen Saturation : 94 % Chnug Wasserman, Director Emergency Services - 06/20/2018 5:28 EDT Diagnosis Control ED (As Of: 06/20/2018 05:32:56 EDT) Problems(Active) Anxiety (SNOMED CT :85930296 ) Name of Problem: Anxiety ; Recorder: BOB PEARCE RN; Confirmation: Confirmed ; Classification: Medical ; Code: [id number] ; Contributor System: PowerChart ; Last Updated: 08/01/2013 19:25 EDT ; Life Cycle Date: 05/11/2013 ; Life Cycle Status: Active ; Vocabulary: SNOMED CT Appendectomy (SNOMED CT :581293915 ) Name of Problem: Appendectomy ; Recorder: BOB PEARCE RN; Confirmation: Confirmed ; Classification: Medical ; Code: 472371146 ; Contributor System: PowerChart ; Last Updated: 08/06/2013 10:55 EDT ; Life Cycle Date: 05/11/2013 ; Life Cycle Status: Active ; Vocabulary: SNOMED CT Bladder (SNOMED CT :415747331 ) Name of Problem: Bladder ; Recorder: BOB PEARCE RN; Confirmation: Confirmed ; Classification: Medical ; Code: 434843717 ; Contributor System: PowerChart ; Last Updated: 08/08/2013 13:51 EDT ; Life Cycle Date: 05/11/2013 ; Life Cycle Status: Active ; Vocabulary: SNOMED CT ; Comments: 05/11/2013 16:28 - BOB PEARCE RN bladder sling Cholecystectomy (SNOMED CT :63963147 ) Name of Problem: Cholecystectomy ; Recorder: BOB PEARCE RN; Confirmation: Confirmed ; Classification: Medical ; Code: 51949104 ; Contributor System: PowerChart ; Last Updated: 08/06/2013 10:53 EDT ; Life Cycle Date: 05/11/2013 ; Life Cycle Status: Active ; Vocabulary: SNOMED CT COPD (chronic obstructive pulmonary disease) (SNOMED CT :71356101 ) Name of Problem: COPD (chronic obstructive pulmonary disease) ; Recorder: BONNIE FUCHS RN; Confirmation: Confirmed ; Classification: Medical ; Code: 01534244 ; Contributor System: DivvyDownChart ; Last Updated: 06/30/2014 10:41 EDT ; Life Cycle Date: 06/30/2014 ; Life Cycle Status: Active ; Vocabulary: SNOMED CT Depression (SNOMED CT :209087762 ) Name of Problem: Depression ; Recorder: BOB PEARCE RN; Confirmation: Confirmed ; Classification: Medical ; Code: 240139109 ; Contributor System: PowerChart ; Last Updated: 08/01/2013 19:25 EDT ; Life Cycle Date: 05/11/2013 ; Life Cycle Status: Active ; Vocabulary: SNOMED CT Diabetes mellitus (SNOMED CT :607841551 ) Name of Problem: Diabetes mellitus ; Recorder: Arabella Pineda RN; Confirmation: Confirmed ; Classification: Patient Stated ; Code: 788215294 ; Contributor System: PowerChart ; Last Updated: 07/09/2017 2:14 EDT ; Life Cycle Date: 07/09/2017 ; Life Cycle Status: Active ; Vocabulary: SNOMED CT GERD (gastroesophageal reflux disease) (SNOMED CT :645935093 ) Name of Problem: GERD (gastroesophageal reflux disease) ; Recorder: BONNIE FUCHS RN; Confirmation: Confirmed ; Classification: Medical ; Code: 493913407 ; Contributor System: PowerChart ; Last Updated: 06/30/2014 10:41 EDT ; Life Cycle Date: 06/30/2014 ; Life Cycle Status: Active ; Vocabulary: SNOMED CT High cholesterol (SNOMED CT :[id number] ) Name of Problem: High cholesterol ; Recorder: BOB PEARCE RN; Confirmation: Confirmed ; Classification: Medical ; Code: [id number] ; Contributor System: Zazuba ; Last Updated: 08/01/2013 19:25 EDT ; Life Cycle Date: 05/11/2013 ; Life Cycle Status: Active ; Vocabulary: SNOMED CT Hysterectomy (SNOMED CT :000784803 ) Name of Problem: Hysterectomy ; Recorder: BOB PEARCE RN; Confirmation: Confirmed ; Classification: Medical ; Code: 436314427 ; Contributor System: Zazuba ; Last Updated: 08/06/2013 10:54 EDT ; Life Cycle Date: 05/11/2013 ; Life Cycle Status: Active ; Vocabulary: SNOMED CT Migraine (SNOMED CT :57822748 ) Name of Problem: Migraine ; Recorder: BOB PEARCE RN; Confirmation: Confirmed ; Classification: Medical ; Code: 82078522 ; Contributor System: Zazuba ; Last Updated: 08/01/2013 19:25 EDT ; Life Cycle Date: 05/11/2013 ; Life Cycle Status: Active ; Vocabulary: SNOMED CT Diagnoses(Active) Shoulder injury - Minor Date: 06/20/2018 ; Diagnosis Type: Reason For Visit ; Confirmation: Complaint of ; Clinical Dx: Shoulder injury - Minor ; Classification: Medical ; Clinical Service: Emergency medicine ; Code: PNED ; Probability: 0 ; Diagnosis Code: [id number] ED Height and Weight Height Source : Estimated Height Entry Format : [place] Height, Feet : 5 ft(Converted to: 152 cm, 60 Inch) Height, Inches : 6 Inch(Converted to: 0 ft 6 Inch, 15.24 cm) Clinical Height : 167.64 cm Weight Source, ED : Stated [place] Body Weight (IBW) : 58.88 kg Chung Wasserman, Director Emergency Services - 06/20/2018 5:28 EDT Estimated Weight Type of Weight Measurement Est : [place] Weight, est lb : 150 lb(Converted to: 68 kg) Weight, est oz : 0 oz Estimated Clinical Dosing Weight : 68.18 kg Chung Wasserman, Director Emergency Services - 06/20/2018 5:28 EDT Electronically signed by [facility], [facility] Conversion Wood Casket Assembler Cerner at 06/09/2022 3:27 PM CDT documented in this encounter Plan of Treatment Not on file documented as of this encounter Visit Diagnoses Not on filedocumented in this encounter Care Teams Expressive Art Therapist Relationship Specialty Start Date End Date Jayden Rowan MD [address] [place] [phone] PCP - General General Internal Medicine 07/05/22 documented as of this encounter
--- OUTSIDE RECORDS SUMMARY | 2024-07-31 11:18 | XMS_ITS | Encounter Summary ---
Author Organization [employer] Address [address] [place] [address] Care Team Providers Care Business Banking Representative Name Role Phone Jayden Rowan MD Primary Care Provider [phone] Encounter Details Date Type Department Care Team (Late st Contact Info) Description 06/26/2020 Transcribed Document [facility] [place] Count includes [facility] [place] [address] ProviderJason MD [address] [place] [address] Social History Tobacco Use Types [...] Zendejas MD - 06/26/2020 3:26 PM CDT [place] Suicide Severity Rating Scale (C-SSRS) Entered On: 06/26/2020 16:32 EDT Performed On: 06/26/2020 16:31 EDT by Tori Rolon RN [place] Suicide Severity Rating Scale (C-SSRS) CSSRS Past [...] on filedocumented in this encounter Care Teams Business Banking Representative Relationship Specialty Start Date End Date Jayden Rowan MD [address] [place] [phone] PCP - General General Internal Medicine 07/05/22 documented as of this encounter
--- OUTSIDE RECORDS SUMMARY | 2024-07-31 11:18 | XMS_ITS | Clinical Summary ---
Author Organization [employer] Address [address] [place] [address] Care Team Providers Care Camp Assistant Name Role Phone Jayden Rowan MD Primary Care Provider [phone] Allergies Active Allergy Reactions Criticality Noted Date [...] Jean Carlos rded Speak language other than Croatian at home Not on file 03/10/2023 Want [...] A1C 6.7 % 07/05/2022 9:44 PM EDT [facility] Comment: Hemoglobin A1C levels are related to mean glucose during the preceding 2-3 months. Less than 7% demonstrates glycemic control in diabetic patients. Hemoglobin AlC % Suggested Diagnosis > or = 6.5 Diabetic 5.7 - 6.4 Prediabetic <5.7 Non-diabetic eAVG Glucose 145.59 mg/dL 07/05/2022 9:44 PM EDT [facility] Blood Venipuncture / Unknown 07/05/2022 12:26 PM EDT 07/05/2022 12:26 PM EDT us Fady Bates MD LAB BLOOD ORDERABLES Final Res ult [facility] [address] [phone] from Last 3 Months or Most Recently Relevant to Health Maintenance Insurance MEDICAID [place] [employer] MEDICAID [place] Advance Directives For more information, please contact: [phone] Documents on File Type Date Recorded Patient Stereo Plotter Operator Expl anation Advance Directives and Livin g Will 07/07/2022 7:11 AM * Full Code (Latest Code Status on File) Date Activated Date Inactivated Comments 07/07/2022 4:06 PM 07/08/2022 4:14 PM Care Teams Camp Assistant Relationship Specialty Start Date End Date Jayden Rowan MD [address] [place] [phone] PCP - General General Internal Medicine 07/05/22
--- OUTSIDE RECORDS SUMMARY | 2024-07-31 11:18 | XMS_ITS | Encounter Summary ---
Author Organization [employer] Address [address] [place] [address] Care Team Providers Care Visitor Services Coordinator Name Role Phone Leanna Rivera MD Primary Care Provider Encounter Details Date Type Department Care Team (Late st Contact Info) Description 04/30/[address] [facility] [place] [address] ProviderJason MD [address] [place] [address] Social History Tobacco Use Types Packs/Day [...] Zendejas MD - 04/30/2019 2:40 PM CDT [facility] [address] [place] [address] CECILE RAMIREZ DARREN :1955 Visit [...] When Within 2 to 3 days Where: [address] [place] [address] [address] [place] [address]- Business (1) Allergies HYDROmorphone Imitrex [...] these instructions at home: Medicines ??? Take lbcg-fdj-goapvwc and prescription medicines only as told by your health care provider. ??? Do not drive or use heavy machinery while taking prescription pain medicine. ??? To prevent or treat constipation while you are taking prescription pain medicine, your health care provider may recommend that you: ? Drink enough fluid to keep your urine clear or pale yellow. ? Take svub-uiw-qgmmmiu or prescription medicines. ? Eat foods that [...] 02/06/2006 Document Revised: 08/26/2016 Document Reviewed: 07/25/2016 [employer] Interactive Patient Education ?? 2019 [employer] Emergency Awareness and Preventative Care STROKE [...] was given the opportunity to ask questions. Patient/Shipping Packer Name: Patient/Shipping Packer Signature: Relationship to Patient: Clinician/Hospital Shipping Packer Signature: Please Provide a Telephone Number Where You Can Be Reached: Is it Permissible To Leave a Message? Date: documented in this encounter Plan of Treatment Not on file documented as of this encounter Visit Diagnoses Not on filedocumented in this encounter Care Teams Visitor Services Coordinator Relationship Specialty Start Date End Date Leanna Rivera MD [address] [place] [phone] PCP - General General Internal Medicine 07/05/22 documented as of this encounter
--- OUTSIDE RECORDS SUMMARY | 2024-07-31 11:18 | XMS_ITS | Encounter Summary ---
Author Organization [employer] Address [address] [place] [address] Care Team Providers Care Mover Helper Name Role Phone Jayden Rowan MD Primary Care Provider [phone] Encounter Details Date Type Department Care Team (Late st Contact Info) Description 06/19/2019 Transcribed Document [facility] [place] [facility] [place] [address] ProviderJason MD [address] [place] [address] Social History Tobacco Use Types Packs/Day [...] 11:14 PM CDT Electronically signed by Tadeo [facility] Conversion High Density Finishing Operator Cerner at 06/09/2022 3:29 PM CDT documented in this encounter Plan of Treatment Not on file documented as of this encounter Visit Diagnoses Not on filedocumented in this encounter Care Teams Mover Helper Relationship Specialty Start Date End Date Jayden Rowan MD [address] [place] [phone] PCP - General General Internal Medicine 07/05/22 documented as of this encounter
--- OUTSIDE RECORDS SUMMARY | 2024-07-31 11:18 | XMS_ITS | Referral Summary ---
Author Organization [employer] Address [address] [place] [address] Care Team Providers Care Sign Writer Letterer Or Painter Name Role Phone Jayden Rowan MD Primary Care Provider [phone] Allergies Active Allergy Reactions Criticality Noted Date [...] Jean Carlos rded Speak language other than Citizen [place] at home Not on file 03/10/2023 Want [...] A1C 6.7 % 07/05/2022 9:44 PM EDT [facility] Comment: Hemoglobin A1C levels are related to mean glucose during the preceding 2-3 months. Less than 7% demonstrates glycemic control in diabetic patients. Hemoglobin AlC % Suggested Diagnosis > or = 6.5 Diabetic 5.7 - 6.4 Prediabetic <5.7 Non-diabetic eAVG Glucose 145.59 mg/dL 07/05/2022 9:44 PM EDT [facility] Blood Venipuncture / Unknown 07/05/2022 12:26 PM EDT 07/05/2022 12:26 PM EDT us Fady Bates MD LAB BLOOD ORDERABLES Final Res ult [facility] [address] [phone] from Last 3 Months or Most Recently Relevant to Health Maintenance Insurance MEDICAID [place] [employer] MEDICA[employer] [place] Advance Directives For more information, please contact: [phone] Documents on File Type Date Recorded Patient Radiology Specialist Expl anation Advance Directives and Ramesh g Will 07/07/2022 7:11 AM * Full Code (Latest Code Status on File) Date Activated Date Inactivated Comments 07/07/2022 4:06 PM 07/08/2022 4:14 PM Care Teams Sign Writer Letterer Or Painter Relationship Specialty Start Date End Date Jayden Rowan MD [address] [place] [phone] PCP - General General Internal Medicine 07/05/22
--- OUTSIDE RECORDS SUMMARY | 2024-07-31 11:18 | XMS_ITS | Encounter Summary ---
Author Organization [employer] Address [address] [place] [address] Care Team Providers Care Executive Business Coach Name Role Phone Jayden Rowan MD Primary Care Provider [phone] Encounter Details Date Type Department Care Team (Late st Contact Info) Description 06/19/2019 Transcribed Document [facility] [place] [facility] [place] [address] ProviderJason MD [address] [place] [id number] Social History Tobacco Use Types Packs/Day [...] Zendejas MD - 06/19/2019 8:59 PM CDT [place] Suicide Severity Rating Scale (C-SSRS) Entered On: 06/19/2019 21:09 EDT Performed On: 06/19/2019 21:09 EDT by Dottie Baltazar RN [place] Suicide Severity Rating Scale (C-SSRS) CSSRS Past Month Wish to be : No CSSRS Past Month Suicidal Thoughts : No CSSRS Lifetime Suicide Behavior : No Suicide Severity Rating Score : 0 Suicide Severity Rating : No Additional Care Required at this time Dottie Baltazar RN - 06/19/2019 21:09 EDT documented in this encounter Plan of Treatment Not on file documented as of this encounter Visit Diagnoses Not on filedocumented in this encounter Care Teams Executive Business Coach Relationship Specialty Start Date End Date Jayden Rowan MD [address] [place] [phone] PCP - General General Internal Medicine 07/05/22 documented as of this encounter
--- OUTSIDE RECORDS SUMMARY | 2024-07-31 11:18 | XMS_ITS | Encounter Summary ---
Author Organization [employer] Address [address] [place] [address] Care Team Providers Care Appointment Manager Name Role Phone Jayden Rowan MD Primary Care Provider [phone] Encounter Details Date Type Department Care Team (Late st Contact Info) Description 08/11/[address] [facility] [place] [facility] [place] [address] ProviderJason MD [address] [place] [address] Social History Tobacco Use Types Packs/Day [...] On: 08/11/2020 14:02 EDT by RACHAEL QUINTANA, psychiatric nursing aide Process Patient Disposition : Discharge Personal Belongings [...] - 08/11/2020 14:13 EDT Electronically signed by [facility] Conversion [employer] at 06/09/2022 3:31 PM CDT documented in this encounter Plan of Treatment Not on file documented as of this encounter Visit Diagnoses Not on filedocumented in this encounter Care Teams Appointment Manager Relationship Specialty Start Date End Date Jayden Rowan MD [address] [place] [phone] PCP - General General Internal Medicine 07/05/22 documented as of this encounter
--- OUTSIDE RECORDS SUMMARY | 2024-07-31 11:18 | XMS_ITS | Encounter Summary ---
Author Organization [employer] Address [address] [place] [address] Care Team Providers Care Sales Lead Generator Name Role Phone Jayden Rowan MD Primary Care Provider [phone] Encounter Details Date Type Department Care Team (Late st Contact Info) Description 06/19/2019 Transcribed Document [facility] [place] [facility] [place] [address] ProviderJason MD [address] [place] [address] Social History Tobacco Use Types Packs/Day [...] On: 06/19/2019 23:20 EDT by Mark Olmedo, Ignition Expert Process Patient Disposition : Discharge Personal Belongings [...] Mark Olmedo Rn - 06/19/2019 23:20 EDT Electronically signed by Jolie Piedra Conversion [employer] at 06/09/2022 3:27 PM CDT documented in this encounter Plan of Treatment Not on file documented as of this encounter Visit Diagnoses Not on filedocumented in this encounter Care Teams Sales Lead Generator Relationship Specialty Start Date End Date Jayden Rowan MD [address] [place] [phone] PCP - General General Internal Medicine 07/05/22 documented as of this encounter
--- OUTSIDE RECORDS SUMMARY | 2024-07-31 11:18 | XMS_ITS | Encounter Summary ---
Author Organization [employer] Address [address] [place] [address] Care Team Providers Care Automotive Parts Advisor Name Role Phone Jayden Rowan MD Primary Care Provider [phone] Encounter Details Date Type Department Care Team (Late st Contact Info) Description 06/19/2019 Transcribed Document [facility] [place] [facility] [place] [address] ProviderJason MD [address] [place] [address] Social History Tobacco Use Types Packs/Day [...] On: 06/19/2019 21:03 EDT by Dottie Baltazar INFORMATICS APPLICATION ANALYST Triage Across the Room Chief Complaint : c/o headache and vomiting x 4 days, hx of same Triage Date/Time : 06/19/2019 21:03 EDT Dottie Baltazar RN - 06/19/2019 21:03 EDT DCP GENERIC CODE Tracking Acuity : 3 - Urgent Tracking Group : [facility] ED Dottie Mistry RN - 06/19/2019 [...] Estimated Onset Date: Unspecified ; Created By: Tenihsa Curry Rn; Reaction Status: Active ; Category: Drug ; Substance: Zofran ; Type: Allergy ; Updated By: Tenisha Curry Rn; Reviewed Date: 06/19/2019 21:06 EDT Diagnosis Control ED (As Of: 06/19/2019 21:08:56 EDT) Problems(Active) Anxiety (SNOMED CT :14873510 ) Name of Problem: Anxiety ; Recorder: BOB PEARCE RN; Confirmation: Confirmed ; Classification: Medical ; Code: [id number] ; Contributor System: PowerChart ; Last Updated: 08/01/2013 19:25 EDT ; Life Cycle Date: 05/11/2013 ; Life Cycle Status: Active ; Vocabulary: SNOMED CT Appendectomy (SNOMED CT :711732260 ) Name of Problem: Appendectomy ; Recorder: BOB PEARCE RN; Confirmation: Confirmed ; Classification: Medical ; Code: 646779132 ; Contributor System: PowerChart ; Last Updated: 08/06/2013 10:55 EDT ; Life Cycle Date: 05/11/2013 ; Life Cycle Status: Active ; Vocabulary: SNOMED CT Bladder (SNOMED CT :253608788 ) Name of Problem: Bladder ; Recorder: BOB PEARCE RN; Confirmation: Confirmed ; Classification: Medical ; Code: [id number] ; Contributor System: PowerChart ; Last Updated: 08/08/2013 13:51 EDT ; Life Cycle Date: 05/11/2013 ; Life Cycle Status: Active ; Vocabulary: SNOMED CT ; Comments: 05/11/2013 16:28 - BOB PEARCE RN bladder sling Cholecystectomy (SNOMED CT :55541720 ) Name of Problem: Cholecystectomy ; Recorder: BOB PEARCE RN; Confirmation: Confirmed ; Classification: Medical ; Code: [id number] ; Contributor System: [employer] ; Last Updated: 08/06/2013 10:53 EDT ; Life Cycle Date: 05/11/2013 ; Life Cycle Status: Active ; Vocabulary: SNOMED CT COPD (chronic obstructive pulmonary disease) (SNOMED CT :89495769 ) Name of Problem: COPD (chronic obstructive pulmonary disease) ; Recorder: BONNIE FUCHS RN; Confirmation: Confirmed ; Classification: Medical ; Code: [id number] ; Contributor System: PowerChart ; Last Updated: 06/30/2014 10:41 EDT ; Life Cycle Date: 06/30/2014 ; Life Cycle Status: Active ; Vocabulary: SNOMED CT Depression (SNOMED CT :668801586 ) Name of Problem: Depression ; Recorder: BOB PEARCE RN; Confirmation: Confirmed ; Classification: Medical ; Code: 492777160 ; Contributor System: PowerChart ; Last Updated: 08/01/2013 19:25 EDT ; Life Cycle Date: 05/11/2013 ; Life Cycle Status: Active ; Vocabulary: SNOMED CT Diabetes mellitus (SNOMED CT :071651749 ) Name of Problem: Diabetes mellitus ; Recorder: Arabella Pineda RN; Confirmation: Confirmed ; Classification: Patient Stated ; Code: 583146226 ; Contributor System: [employer] Education[employer] ; Last Updated: 07/09/2017 2:14 EDT ; Life Cycle Date: 07/09/2017 ; Life Cycle Status: Active ; Vocabulary: SNOMED CT GERD (gastroesophageal reflux disease) (SNOMED CT :097640199 ) Name of Problem: GERD (gastroesophageal reflux disease) ; Recorder: BONNIE FUCHS RN; Confirmation: Confirmed ; Classification: Medical ; Code: 101353147 ; Contributor System: PowerChart ; Last Updated: 06/30/2014 10:41 EDT ; Life Cycle Date: 06/30/2014 ; Life Cycle Status: Active ; Vocabulary: SNOMED CT High cholesterol (SNOMED CT :[id number] ) Name of Problem: High cholesterol ; Recorder: BOB PEARCE RN; Confirmation: Confirmed ; Classification: Medical ; Code: [id number] ; Contributor System: [employer] ; Last Updated: 08/01/2013 19:25 EDT ; Life Cycle Date: 05/11/2013 ; Life Cycle Status: Active ; Vocabulary: SNOMED CT Hysterectomy (SNOMED CT :673613843 ) Name of Problem: Hysterectomy ; Recorder: BOB PEARCE RN; Confirmation: Confirmed ; Classification: Medical ; Code: 086137990 ; Contributor System: [employer] ; Last Updated: 08/06/2013 10:54 EDT ; Life Cycle Date: 05/11/2013 ; Life Cycle Status: Active ; Vocabulary: SNOMED CT Migraine (SNOMED CT :25089523 ) Name of Problem: Migraine ; Recorder: BOB PEARCE RN; Confirmation: Confirmed ; Classification: Medical ; Code: 38255904 ; Contributor System: [employer] ; Last Updated: 08/01/2013 19:25 EDT ; Life Cycle Date: 05/11/2013 ; Life Cycle Status: Active ; Vocabulary: SNOMED CT Diagnoses(Active) Headache Date: 06/19/2019 ; Diagnosis Type: Reason For Visit ; Confirmation: Complaint of ; Clinical Dx: Headache ; Classification: Medical ; Clinical Service: Emergency medicine ; Code: PNED ; Probability: 0 ; Diagnosis Code: [id number] ED Height and Weight Height Source : Stated Height Entry Format : [place] Height, Feet : 5 ft(Converted to: 152 cm, 60 Inch) Height, Inches : 4 Inch(Converted to: 0 ft 4 Inch, 10.16 cm) Clinical Height : 162.56 cm Weight Source, ED : Critical estimated dosing weight Weight Entry Format : [place] Weight, Pounds : 172 lb Clinical Dosing Weight : 78.18 kg Body Surface Area (BSA) : 1.84 m2 Body Mass Index : 29.6 kg/m2 (HI) [place] Body Weight (IBW) : 54.3 kg Dottie [...] filedocumented in this encounter Care Teams Automotive Parts Advisor Relationship Specialty Start Date End Date Jayden Rowan MD [address] [place] [phone] PCP - General General Internal Medicine 07/05/22 documented as of this encounter
--- NOTE | 2024-07-31 11:36 | EXP.PAIN.SOA ---
[facility] Disclaimer: The information contained in this section may have been updated after the patient was seen, as this information can be updated by other users. Medical History (Updated 07/31/24 @ 11:39 by Cheyenne Goldberg APRN) E-coli UTI Encounter for hepatitis C screening test for low risk patient Screening for HIV (human immunodeficiency virus) Encounter to establish care Allergic reaction to chemical substance Urticaria Right otitis media Viral respiratory illness Wheezing Migraine headache Closed fracture of right distal radius MDD (major depressive disorder) Mood disorder Sprain of right wrist Episodic migraine Acute UTI Back pain Allergic reaction Chest pain at rest Back pain Chest pain Chest pain Indigestion Atypical chest pain Seizure disorder Tremor Hernia Urinary incontinence, mixed GERD (gastroesophageal reflux disease) Anxiety and depression Type 2 diabetes mellitus COPD (chronic obstructive pulmonary disease) Hyperlipidemia Surgical History History of bladder surgery H/O hernia repair H/O: hysterectomy History of cholecystectomy Hx of appendectomy H/O neck surgery Family History Other Cancer Diabetes Social History Smoking Status: Current every day smoker alcohol intake: never substance use type: denies use current occupational status: disabled Travel in the last 8 weeks?: None household members: significant other housing: house marital status: Have you lived/traveled outside US in past 30 days?: No Contact w/someone who lives/traveled outside US past 30 days?: No Exposure to someone with infectious disease in past 14 days?: No Do you have a fever (greater than 100.4 F or 38 C)?: No Have you tested positive for COVID-19?: No Exposed to someone with COVID-19 in past 14 days?: No Do you have a sore throat?: No Do you have a cough?: No Do you have any weakness?: No Do you have any diarrhea?: No Are you experiencing any unusual bleeding?: No Do you have any muscle aches/pain?: No Do you have any abdominal pain?: No Are you experiencing loss of taste or smell?: No PM Subjective & Objective Subjective Subjective:: Patient is a pleasant 69-year-old female who presents today for follow-up of her radiofrequency ablation of the cervical spine left sided C5-C6 and C6-C7 on 07/09/2024 as well as psychological evaluation follow-up. Today she rates her pain a 5 out of 10. She denies any new trauma or injury. Patient does still have chronic pain there at her neck and low back. Patient does state that the ablation did help at least 50% however did seem to aggravate the right side that she had had done previously. Patient does states she continues to have the chronic pain throughout her back and does still want to proceed forward with the intrathecal pain pump trial. Patient has continued conservative treatment with no additional changes. Patient is prescribed compounded cream from our office. We have tried muscle relaxers with minimal changes. Her Willie has been reviewed and is appropriate. Review of Systems: General: No recent weight changes, no fever, no sleep disturbances Respiratory: No cough, no shortness of air, no recurring pulmonary infections Cardiovascular/peripheral vascular: No chest pain, no palpitations, no edema, no shortness of breath Gastrointestinal: No new onset incontinence, normal bowel movements reported Genitourinary: No new onset incontinence Musculoskeletal: Chronic neck and low back pain Psychiatric: [Normal mood/affect] Neurological: [Denies weakness in extremities], [denies balance issues] Pain at rest (0-10 scale): 5 Objective Objective:: Physical Exam: General: Alert and oriented x3, no acute distress, pleasant and cooperative Lungs: Respirations even and unlabored, symmetrical chest expansion Eyes: PERRL Musculoskeletal: Flexion and extension of lumbar [spine] somewhat guarded secondary to pain, [antalgic gait noted] Neurological: Speech clear, no gross sensory deficit Has patient had previous pain injection?: Yes Percent improvement in pain since last injection: 50% Conservative treatment options previously tried: Home exercise plan Length of treatment: Longer than 12 weeks Meds Home Medications and Allergies Home Medications ?Medication ?Instructions ?Recorded ?Confirmed ?Type alcohol swabs (DropSafe Alcohol 1 pad topical DIRECTED 10/30/23 07/29/24 History Prep Pads) blood sugar diagnostic (Accu-Chek #10 ea 10/30/23 07/29/24 History Guide test strips) blood-glucose meter (Accu-Chek #1 ea 10/30/23 07/29/24 History Guide Me Glucose Meter) ipratropium 0.5 mg-albuterol 3 mg 3 ml inhalation Q4-6H PRN 10/30/23 07/29/24 History (2.5 mg base)/3 mL nebulization Breathing Problems soln lancets (Accu-Chek Softclix #100 ea 10/30/23 07/29/24 History Lancets) syringe with needle 3 mL 23 x 1 #1 ea 10/30/23 07/29/24 History (BD Luer-Konrad Syringe) famotidine 20 mg tablet 20 mg PO BID #180 tabs 11/16/23 07/29/24 Rx ropinirole 3 mg tablet 3 mg PO DAILY #90 tabs 12/14/23 07/29/24 Rx atorvastatin 80 mg tablet 80 mg PO DAILY #90 tabs 05/22/24 07/29/24 Rx promethazine 25 mg tablet 25 mg PO Q8HP PRN motion sickness 06/27/24 07/29/24 Rx #90 tabs clonazepam 1 mg tablet 1 mg PO BID #60 tabs 07/22/24 07/29/24 Rx dulaglutide 3 mg/0.5 mL See Rx Instructions .Route 07/22/24 07/29/24 Rx subcutaneous pen injector .COMPLEX #2 mL (Trulicity) albuterol sulfate 90 mcg/actuation 2 inh inhalation Q4-6H PRN 07/29/24 07/29/24 Rx aerosol inhaler Breathing Problems #8.5 grams azelastine 137 mcg (0.1 %) nasal 2 spray intranasal BID . #30 mL 07/29/24 07/29/24 Rx spray eptinezumab-jjmr 100 mg/mL 100 mg IV [id number] 07/29/24 07/29/24 Rx intravenous solution (Vyepti) fluticasone fur. 200 mcg-umeclid 1 inh inhalation DAILY #60 ea 07/29/24 07/29/24 Rx 62.5 mcg-vilant 25 mcg inhalat.powder (Trelegy Ellipta) meclizine 25 mg tablet 25 mg PO BID PRN motion sickness 07/29/24 07/29/24 Rx #60 tabs sertraline 100 mg tablet 200 mg (2 x 100 mg) PO DAILY #180 07/29/24 07/29/24 Rx tabs ubrogepant 100 mg tablet (Ubrelvy) 100 mg PO DAILY PRN Migraine 07/29/24 07/29/24 Rx Headache #30 tabs New Prescriptions to Start Prescriptions: Allergies Allergy/AdvReac Type Severity Reaction Status Date / Time acetaminophen (From Lortab) Allergy Intermediate Verified 07/29/24 09:16 hydrocodone (From Lortab) Allergy Intermediate Verified 07/29/24 09:16 codeine AdvReac Severe Verified 07/29/24 09:16 hydromorphone (From Dilaudid) AdvReac Severe Verified 07/29/24 09:16 morphine AdvReac Severe Verified 07/29/24 09:16 oxycodone AdvReac Severe Verified 07/29/24 09:16 topiramate AdvReac Severe Hives Verified 07/29/24 09:16 ondansetron (From Zofran) AdvReac Intermediate Verified 07/29/24 09:16 Assessment and Plan *Assessment and plan (1) Cervical pain (neck): Status: Acute Category: Medical Code(s): M54.2 - Cervicalgia (2) History of fusion of cervical spine: Status: Chronic Category: Surgical Code(s): Z98.1 - Arthrodesis status (3) Facet arthropathy, cervical: Status: Acute Category: Medical Code(s): M47.812 - Spondylosis without myelopathy or radiculopathy, cervical region (4) Lumbar spinal stenosis: Status: Acute Category: Medical Code(s): M48.061 - Spinal stenosis, lumbar region without neurogenic claudication (5) Degenerative disc disease, lumbar: Status: Chronic Qualifiers: Disc-related pain type: discogenic back pain only Qualified Code(s): M51.360 - Other intervertebral disc degeneration, lumbar region with discogenic back pain only Category: Medical Code(s): M51.369 - Other intervertebral disc degeneration, lumbar region without mention of lumbar back pain or lower extremity pain (6) Chronic pain syndrome: Status: Acute Category: Medical Code(s): G89.4 - Chronic pain syndrome Plan I did review over with the patient regarding her psychological evaluation and she was deemed an appropriate candidate for this intervention. I did review risk and benefits of the pump trial and she would like to proceed forward with this plan of care. Patient is not on any blood thinners. Patient was also counseled we will plan on putting in orders for x-ray and MRI without contrast of her lumbar spine for updated imaging and also sending her to Dr. Jacques yi for surgical evaluation. Patient will be submitted for the intrathecal pump trial under fluoroscopy. Patient has tried and failed conservative therapy including oral medication, heat and ice, topicals, physical therapy, previous cervical fusion and continued at home stretching exercise for longer than 12 weeks that was physician guided. Patient has had chronic neck and low back pain for years that has progressively worsened. Patient agrees with this plan of care. Patient has been instructed to contact the clinic with any concerns before the next appointment. Dr. Sheehan has reviewed this note and agrees with this plan of care. This note was dictated using voice recognition software and make contain errors or omissions. All injections are used with Lidocaine, Bupivacaine and dexamethasone. Occasionally urine drug screen is needed to verify patient's compliance with our office pain contract. This is ordered based off specific treatments related to chronic pain with the potential to abuse certain medications.
[2024-07-31 13:10] VITALS: BP 104/70; PULSE 89; RESP 14; O2SAT 95; BMI 25.5
== END 2024-07-31 23:59 | disposition home or self-care (01) ==
PROVIDERS: PCP Nurse Practitioner Family; Visit Provider Nurse Practitioner Family
DX: M47.812 Spondylosis without myelopathy or radiculopathy, cervical region (principal); Z98.1 Arthrodesis status; M48.061 Spinal stenosis, lumbar region without neurogenic claudication; M51.360 Other intervertebral disc degeneration, lumbar region with discogenic back pain only; G89.4 Chronic pain syndrome
CPT/HCPCS: 99212; G0463

== ENCOUNTER 2024-08-01 09:50 | Outpatient (CLI) | payer MEDICARE, MEDICAID, SELFPAY ==
--- OUTSIDE RECORDS SUMMARY | 2023-12-28 06:15 | XMS_ITS ---
Author Organization [facility] Address [address] [place] [address] Care Team Providers Care Saddle Cutter Name Role Phone Enoc Crane Primary Care Provider [phone] ENOC Crane APRN Unavailable Unavailable REASON FOR VISIT 3 Month F/U Encounters Encounter Location Date Provider Diagnosis [facility] [address] [place], [place] [address] 12/28/2023 Enoc Crane Plan Of Treatment No Information Progress Notes * RAMIREZ, Alber:1955 (69 yo F)Acc No.[id number]:12/28/2023 Progress Notes Patient: Cecile HUSSEIN Provider: Monie Crane APRN :1955 A ge:68 Y S ex:Female Date:12/28/2023 Address:[address] [id number] Subjective: * Chief Complaints: * 1 . 3 Month F/U. * Medical History: Objective: * Vitals: Assessment: Plan: * Treatment: * * Electronic signature of Phan Crane APRN on 08/01/2024 at 10:03 AM EDT Sign off status: Pending * Provider: Monie Crane APRN Date: 02/26/2023 Generated for Printi ng/Faxing/eTransmitting on: 0 08/01/2024 10:03 AM EDT
--- OUTSIDE RECORDS SUMMARY | 2024-05-25 17:30 | XMS_ITS ---
Author Organization [facility] Address [address] [place] [address] Care Team Providers Care Plate Grainer Apprentice Name Role Phone Enoc Crane Primary Care Provider ENOC Crane APRN Unavailable Unavailable Migration, Provider Unavailable Unavailable Allergies Allergen (clinical drug ingredient) Drug/Non Drug Allergy documented on EMR Reaction Allergy Type Onset Date Status Information temporarily unavailable PERCODAN (uncoded) hallunications Allergy Active Information temporarily unavailable ZOFRAN (uncoded) stomach upset Allergy Active Information temporarily unavailable Dilaudid vomiting Drug Allergy Active Information temporarily unavailable Morphine vomiting Drug Allergy Active REASON FOR VISIT [facility] To [facility] Conversion Encounter Medications Medication SIG (Take, [...] Active Encounters Encounter Location Date Provider Diagnosis [facility] [address] [facility] [address] [place] [address] 05/25/2024 Provider Migration Plan Of Treatment Medication [...] Notes * Rivas RAMIREZB:1955 (69 yo F)Acc No.[id number]:05/25/2024 Patient: Cecile HUSSEIN Provider: Pankaj thomson Migration :1955 A ge:69 Y S ex:Female Date:05/25/2024 [facility] [facility] [id number] Pcp:Enoc Crane Subjective: * Chief Complaints: * 1 . Multum To Medispan Conversion Encounter. * Medical History: * Medications: T aking Trelegy Ellipta 200 MCG-62.5 MCG-25 MCG/INH POWDER 1 PUFF(S) INHALED ONCE A DAY , Notes to Pharmacist: *Please review and pick correct strength-formulation from [employer] options. If intended option is not shown, [...] Electronic signature of Prov ider Migration on 08/01/2024 at 10:04 AM EDT Sign off status: Pending * Provider: Pankaj thomson Migration Date: 0 05/25/2024 Generated for Yumiko robison/Margarette/Jimboitting on: 0 08/01/2024 10:04 AM EDT
--- NOTE | 2024-08-01 09:53 | XR_ITS ---
FINAL REPORT CLINICAL HISTORY: Low back pain states she is scheduled for a pain pump insertion and they wanted to get an xray of her back prior COMPARISON: None FINDINGS: 3 views of the lumbar spine were obtained. There is no evidence of fracture. There is no malalignment. The vertebrae are normal in height. Mild disc space narrowing at L4-5 and L5-S1. There is moderate facet sclerosis in the lower lumbar spine. No paraspinous soft tissue abnormalities identified. IMPRESSION: Degenerative/chronic changes without acute bony abnormality. Reviewed, Interpreted and Dictated by Sy Brantley MD Transcribed by Estrella Helms Authenticated and [facility]
--- OUTSIDE RECORDS SUMMARY | 2024-08-01 10:04 | XMS_ITS | Patient Health Record ---
Author Organization [facility] Address [address] [place] [address] Care Team Providers Care Greens Picker Name Role Phone Livier Crane Primary Care Provider [phone] LIVIER Crane APRN Unavailable Unavailable Manpreet Lemus Unavailable [phone] Migration, Provider Unavailable Unavailable Allergies Allergen (clinical drug ingredient) Drug/Non Drug Allergy documented on EMR Reaction Allergy Type Onset Date Status PERCODAN (uncoded) hallunications Allergy Active ZOFRAN (uncoded) stomach upset Allergy Active hydromorphone Dilaudid vomiting Drug Allergy Act florecita morphine Morphine vomiting Drug Allergy Active Results Component Value Reference Range Notes VITAMIN B12 (927) Reviewed date:09/22/2023 01:50:40 PM Interpretation: Performing Lab:[facility] 5 CUPS and some sugar [facility] [id number], [id number] Rob Hu Notes/Report: NON-FASTING; NON-FASTING; NON-FASTING; NON-FASTING; NON-FAST FASTING:YES FASTING: YES VITAMIN B12 329 332-8812 pg/mL HEMOGLOBIN A1c (496) Reviewed date:09/22/2023 01:50:40 PM Interpretation: Performing Lab:[facility] 5 CUPS and some sugar [facility] [id number], [employer] SemiconductorObpbWB[address] Rob Hu Notes/Report: NON-FASTING; NON-FASTING; NON-FASTING; NON-FASTING; [...] change in test platforms from the [employer] to the Ramila fuentes c503 may have shifted HbA1c results compared to historical results. Based on laboratory validation testing conducted at 5 CUPS and some sugar, the Ramila platform relative to the Espino platform had an average increase in HbA1c value of < or = 0.3%. This difference is within accepted variability established by the National Glycohemoglobin Standardization Program. Note that not all individuals will have had a shift in their results and direct comparisons between historical and current results for testing conducted on different platforms is not recommended. CBC (INCLUDES DIFF/PLT) (639 9) Reviewed date:09/22/2023 01:50:40 PM Interpretation: Performing Lab:[facility] [address] [facility], Allan CrainNulzXT[address] Rob Hu Notes/Report: NON-FASTING; NON-FASTING; NON-FASTING; NON-FASTING; NON-FAST FASTING:YES FASTING: YES WHITE BLOOD CELL COUNT 7.9 3.8-10.8 Thousand/ uL RED BLOOD CELL COUNT 4.95 3.80-5.10 Million/uL HEMOGLOBIN 12.3 11.7-15.5 g/dL HEMATOCRIT 39.5 35.0-45.0 % MCV 79.8 80.0-100.0 fL MCH 24.8 27.0-33.0 pg MCHC 31.1 32.0-36.0 g/dL RDW 14.4 11.0-15.0 % PLATELET COUNT 236 140-400 Thousand/uL MPV 10.1 7.5-12.5 fL ABSOLUTE NEUTROPHILS 5230 2822-7488 cells/uL ABSOLUTE LYMPHOCYTES 0657 033-5528 cells/uL ABSOLUTE MONOCYTES 545 200-950 cells/uL ABSOLUTE EOSINOPHILS 300 15-500 cells/uL ABSOLUTE BASOPHILS 40 0-200 cells/uL NEUTROPHILS 66.2 LYMPHOCYTES 22.6 MONOCYTES 6.9 EOSINOPHILS 3.8 BASOPHILS 0.5 COMPREHENSIVE METABOLIC PANE L (06649) Reviewed date:09/22/2023 01:50:40 PM Interpretation: Performing Lab:[facility], [facility] HospitalSjnaBH[address] Rob Hu Notes/Report: NON-FASTING; NON-FASTING; NON-FASTING; NON-FASTING; [...] 19 10-35 U/L ALT 16 6-29 U/L LIPID PANEL, STANDARD (7600) Reviewed date:09/22/2023 01:50:40 PM Interpretation: Performing Lab:[facility], [facility] HospitalRyjcZE[address] Rob Hu Notes/Report: NON-FASTING; NON-FASTING; NON-FASTING; NON-FASTING; NON-FAST FASTING:YES FASTING: YES CHOLESTEROL, TOTAL 130 <200 mg/dL HDL CHOLESTEROL 45 > OR = 50 mg/dL TRIGLYCERIDES 181 <150 mg/dL LDL-CHOLESTEROL 59 Reference range: <100 Desirable range <100 mg/dL for primary prevention; <70 mg/dL for patients with CHD or diabetic patients with > or = 2 CHD risk factors. LDL-C is now calculated using the Warren-Arroyo calculation, which is a validated novel method providing better accuracy than the Friedewald equation in the estimation of LDL-C. Warren SS et al. ALLAN. 2013;310(19): 3296-5189 (http://education.Pica8/faq/SFN397) CHOL/HDLC RATIO 2.9 <5.0 (calc) NON HDL CHOLESTEROL 85 <130 mg/dL (calc) For patients with diabetes plus 1 major ASCVD risk factor, treating to a non-HDL-C goal of <100 mg/dL (LDL-C of <70 mg/dL) is considered a therapeutic option. Reason For Referral No Information Medications Medication [...] review and pick correct strength-formulati on from Hyperpia options. If intended option is not shown, [...] review and pick correct strength-formulati on from Hyperpia options. If intended option is not shown, discontinue and re-order from InvenSense Search* Active Sertraline HCl 100 MG 2 [...] Problem Status W/U Status Risk Notes Problem 254061718 Mixed hyperlipidemia (E78.2) Active confirmed Problem 544301093 Depression with anxiety (F41.8) Active confirmed Problem 418666290 COPD exacerbatio n (J44.1) Active confirmed Problem 84209084 RLS (restless le gs syndrome) (G25.81) Active confirmed Problem Type 2 diabetes mellitus (55040011) Type 2 diabetes mellitus (E11.9) Active confirmed Problem 373287375 Tobacco use disorder (F17.200) Active confirmed Problem 289264854 Migraine with status migrainosus, not intractable, unspecified migraine type (G43.901) Active confirmed Vital Signs Heart Rate 96 /min 09/21/2023 Temperature 97.8 degrees Fahrenheit 09/21/2023 Blood pressure diastolic 60 mm Hg 09/21/2023 Height 63 in 09/21/2023 Blood pressure systolic 112 mm Hg 09/21/2023 Weight 149.6 lbs 09/21/2023 BMI 26.5 kg/m2 09/21/2023 Encounters Encounter Location Date Provider Diagnosis [facility] [address] [place], [place] [address] 05/25/2024 Provider Migration [facility] [address] [place] [address] 08/21/2023 Manpreet Lemus COPD exacerbation J44.1 ; Wrist pain, right M25.531 ; Unspecified fall, initial encounter W19.XXXA and Unspecified place in unspecified non-institutional (private) residence as the place of occurrence of the external cause Y92.009 [facility] [address] [place] [address] 09/21/2023 Livier McNees Migraine with status migrainosus, not intractable, unspecified migraine type G43.901 ; Type 2 diabetes mellitus E11.9 ; B12 deficiency E53.8 ; Tremor R25.1 ; Depression with anxiety F41.8 ; Mixed hyperlipidemia E78.2 ; 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 ; Tobacco use disorder F17.200 and RLS (restless legs syndrome) G25.81 [facility] [address] [place] [address] 08/07/2023 Manpreet Besson Acute cystitis witho ut hematuria N30.00 [facility] [address] [place] [address] 08/23/2023 Livier McNees [facility] [address] [facility] [address] [place] [address] 08/23/2023 Manpreet Besson [facility] [address] [place] [address] 08/28/2023 Manpreet Besson Asymptomatic age-related postmenopausal state Z78.0 [facility] [address] [place] [address] 09/04/2023 Livier McNees [facility] [address] [facility] [address] [place] [address] 09/11/2023 Manpreet Besson Acute cystitis witho ut hematuria N30.00 [facility] [address] [place] [address] 09/22/2023 Livier McNees [facility] [address] [place] [address] 10/09/2023 Manpreet Besson [facility] [address] [facility] [address] [place] [address] 10/20/2023 Livier McNees Assessments Encounter Date Diagnosis [...] Auto Diff 024 M-Comprehensive Metabolic Panel 04/04/[address] Scan : Chest, Lung Cancer Screening 0 06/15/2023 Lipid Panel 06/15/2023 COMP METABOLIC PANEL 06/15/2023 CBC AUTO W DIFF 06/15/2023 Insurance Providers Payer Name Payer Address Payer Phone Subscriber Number Group Number Insured Name Patient Relationship to Insured Coverage Start Date Coverage End Date [employer] MED[employer] DUAL [address] [address] [place] [address] [id number] Cecile Escobedo Self - patient is the [...]
--- OUTSIDE RECORDS SUMMARY | 2024-08-01 10:05 | XMS_ITS | Data Portability ---
Author Organization [facility] Address [address] [place] [address] Care Team Providers Care Electric Installer Name Role Phone LEANNA DAVIDSON Neurologist LILIANA LUNDBERG Orthopedic Surgeon AGUSTO VALVERDE [facility] [phone] Assessment Encounter Date Assessment Date Assessment LastModified [...] recorded. Lab hemoglobin A1C, fingerstick 2022 023 [facility], [address] [place] [address], [address], 11:25:24 microalbumi n/creatinin e, mass ratio, urine 2022 023 [facility], [address] [place], [address], 3 15:20:19 glycohemogl obin, total, blood 2022 023 [facility], [address] [place], [address], 3 15:05:36 lipid panel, serum 2022 023 [facility], [facility] [place], [address], 3 15:24:16 CMP, serum or plasma 2022 023 [facility], [address] [place], [address], 3 15:24:14 CBC w/ auto diff 2022 023 [facility], [address] [place], [address], 3 16:57:00 TSH, serum or plasma 2022 023 [facility], [address] [place] [address], [address], 3 15:10:59 Referral None recorded. Procedures nerve conduction study/EMG, upper extremity (PROC) - Right upper extremity evaluation for carpal tunnel syndrome, rule out other compressive neuropathy and radiculopat hy. Bilateral upper extremity comparison. 2022 [email or web address] Of Service Professional Charges, [facility], [facility] [address], [place], [address], 3 10:28:48 Surgeries None recorded. Imaging CT, wrist, w/o contrast 2022 023 [email or web address] Not available 3 08:23:13 US, duplex, arterial, lower extremity, complete 2022 023 [email or web address] [facility] (Centralized Scheduling), [address], [place], [address], 3 13:57:02 Medication Orders clonazepam 1 mg tablet 2022 023 [facility], [address], [place], [address], 3 11:01:12 Patient TargetsNo targets recorded. Patient Instructions Encounter Date Encounter Id Patient Instructions Last Modified By Organization Details Last Modified Time 02/16/2023 [id number] DeQuervain's Tendonitis-LC bdevers Not available 02/16/2023 13:20:53 Reason for Referral None Reported. Results Created Date Observation Date Name Description Value Unit Range Abnormal Flag Note LastModifiedBy Organization Detail LastModifiedTime 10/22/1910/21/2022 GLYCO HEMOG LOBIN A1C glyco HGB A1C 6.6 % 0.0-5. 6 high Not Available [facility] [place], [address], 10/21/2022 15:05:36 10/22/19 23 10/21/2022 GLYCO HEMOG LOBIN A1C estimated avg. glucose 143 mg/dL _(opal c) normal A1c value s betwe en 5.7% to 6.4% indic ate predi abete s. Resul ts 6.5% or great er is diagn ostic of diabe herbert. Ameri can [employer] herbert [facility] iatio n (diab etes. org) Not Available [facility] [address] [place], [address], 10/21/2022 15:05:36 10/22/19 23 10/21/2022 TSH TSH 2.230 u[IU] /mL 0.270- 4.200 normal Not Available [facility] [address] [place], [address], 10/21/2022 15:10:59 10/22/19 23 10/21/2022 MICRO ALBUM IN/CR EAT RATIO microalbumin , random <12 mg/L 0-19 normal Not Available [facility] [address] [place] [address], [address], 10/21/2022 15:20:19 10/22/19 23 10/21/2022 MICRO ALBUM IN/CR EAT RATIO creatinine,u r,random 100 mg/dL normal NO DEBO L RANGE ESTAB LISHE D FOR RANDO M URINE . Not Available [facility] [address] [place] [address], [address], 10/21/2022 15:20:19 10/22/19 23 10/21/2022 MICRO ALBUM IN/CR EAT RATIO MA/creatinin e ratio see below mcg/m g_cre at 0-29 normal Unabl e to calcu late micro album in/cr eatin ine ratio . Not Available [facility] [address] [place] [address], [address], 10/21/2022 15:20:19 10/22/19 23 10/21/2022 COMP. METAB OLIC PANEL glucose 94 mg/dL 74-100 normal Not Available [facility] [address] [place] [address], [address], 10/21/2022 15:24:13 10/22/19 23 10/21/2022 COMP. METAB OLIC PANEL blood urea nitrogen 5 mg/dL 6-20 low Not Available [facility] [address] [place], [address], 10/21/2022 15:24:13 10/22/19 23 10/21/2022 COMP. METAB OLIC PANEL creatinine 0.73 mg/dL 0.50-0 .95 normal Not Available [facility] [address] [place] [address], [address], 10/21/2022 15:24:13 10/22/19 23 10/21/2022 COMP. METAB OLIC PANEL BUN/creatini ne ratio 7 (calc ) 10-20 low Not Available [facility] [address] [place] [address], [address], 10/21/2022 15:24:13 10/22/19 23 10/21/2022 COMP. METAB OLIC PANEL sodium 141 mmol/ L 136-14 5 normal Not Available [facility] [address] [place] [address], [address], 10/21/2022 15:24:13 10/22/19 23 10/21/2022 COMP. METAB OLIC PANEL potassium 3.8 mmol/ L 3.4-5. 0 normal Not Available [facility] [address] [place] [address], [address], 10/21/2022 15:24:13 10/22/19 23 10/21/2022 COMP. METAB OLIC PANEL chloride 106 mmol/ L 98-107 normal Not Available [facility] [address] [place] [address], [address], 10/21/2022 15:24:13 10/22/19 23 10/21/2022 COMP. METAB OLIC PANEL carbon dioxide 25 mmol/ L 22-31 normal Not Available [facility] [address] [place] [address], [address], 10/21/2022 15:24:13 10/22/19 23 10/21/2022 COMP. METAB OLIC PANEL anion gap 10 (calc ) 7-25 normal Not Available [facility] [address] [place] [address], [address], 10/21/2022 15:24:13 10/22/19 23 10/21/2022 COMP. METAB OLIC PANEL calcium 9.7 mg/dL 8.6-10 .2 normal Not Available [facility] [address] [place] [address], [address], 10/21/2022 15:24:13 10/22/19 23 10/21/2022 COMP. METAB OLIC PANEL total protein 8.0 g/dL 6.4-8. 3 normal Not Available [facility] [address] [place] [address], [address], 10/21/2022 15:24:13 10/22/19 23 10/21/2022 COMP. METAB OLIC PANEL albumin 4.5 g/dL 3.5-5. 2 normal Not Available [facility] [address] [place] [address], [address], 10/21/2022 15:24:13 10/22/19 23 10/21/2022 COMP. METAB OLIC PANEL globulin 3.5 1.5-4. 5 normal Not Available [facility] [address] [place] [address], [address], 10/21/2022 15:24:13 10/22/19 23 10/21/2022 COMP. METAB OLIC PANEL albumin/glob ulin ratio 1.3 (calc ) 1.1-2. 5 normal Not Available [facility] [address] [place] [address], [address], 10/21/2022 15:24:13 10/22/19 23 10/21/2022 COMP. METAB OLIC PANEL bilirubin, total 0.2 mg/dL 0.1-1. 2 normal Not Available [facility] [address] [place] [address], [address], 10/21/2022 15:24:13 10/22/19 23 10/21/2022 COMP. METAB OLIC PANEL alkaline phosphatase 71 U/L 30-121 normal Not Available [facility] [address] [place] [address], [address], 10/21/2022 15:24:13 10/22/19 23 10/21/2022 COMP. METAB OLIC PANEL AST 21 U/L 0-32 normal Not Available [facility] [address] [place] [address], [address], 10/21/2022 15:24:13 10/22/19 23 10/21/2022 COMP. METAB OLIC PANEL ALT 22 U/L 0-33 normal Not Available [facility] [address] [place], [address], 10/21/2022 15:24:13 10/22/19 23 10/21/2022 COMP. METAB [...] s/KDO QI/gf r_cal culat orPed Not Available [facility] [address] [place] [address], [address], 10/21/2022 15:24:13 10/22/19 23 10/21/2022 LIPID PROFI LE HDL cholesterol 40 mg/dL 50-242 low Not Available [facility] [address] [place], [address], 10/21/2022 15:24:15 10/22/19 23 10/21/2022 LIPID PROFI LE triglyceride s 257 mg/dL 0-149 high TRIGL YCERI DE RANGE S DEBO L: < 150 BORDE RLINE HIGH: 150 - 199 HIGH: 200 - 499 VERY HIGH: > OR = 500 Not Available [facility] [address] [place], [address], 10/21/2022 15:24:15 10/22/19 23 10/21/2022 LIPID PROFI LE cholesterol 170 mg/dL 0-199 normal YO STERO L (TOTA L) RANGE S KAILEY ABLE: < 200 BORDE RLINE : 200 - 239 HIGHE R RISK: > 239 Not Available [facility] [address] [place] [address], [address], 10/21/2022 15:24:15 10/22/19 23 10/21/2022 LIPID PROFI LE LDL cholesterol 79 mg/dL _(opal c) 0-99 normal LDL YO STERO L RANGE S OPTIM AL: < 100 NEAR/ ABOVE OPTIM AL: 100 - 129 BORDE RLINE HIGH: 130 - 159 HIGH: 160 - 189 VERY HIGH: > OR = 190 Not Available [facility] [address] [place] [address], [address], 10/21/2022 15:24:15 10/22/1910/21/2022 COMPL ETE BLOOD COUNT white blood cells 9.0 10*3/ uL 3.8-10 .8 normal Not Available [facility] [address] [place] [address], [address], 10/21/2022 16:56:59 10/22/19 23 10/21/2022 COMPL ETE BLOOD COUNT red blood cells 5.44 10*6/ uL 3.80-5 .20 high Not Available [facility] [address] [place] [address], [address], 10/21/2022 16:56:59 10/22/19 23 10/21/2022 COMPL ETE BLOOD COUNT hemoglobin 13.5 g/dL 12.0-1 6.0 normal Not Available [facility] [address] [place] [address], [address], 10/21/2022 16:56:59 10/22/1910/21/2022 COMPL ETE BLOOD COUNT hematocrit 42.1 % 35.0-4 7.0 normal Not Available [facility] [address] [place] [address], [address], 10/21/2022 16:56:59 10/22/19 23 10/21/2022 COMPL ETE BLOOD COUNT MCV 77 fL 80-100 low Not Available [facility] [address] [place] [address], [address], 10/21/2022 16:56:59 10/22/19 23 10/21/2022 COMPL ETE BLOOD COUNT MCH 25 pg 26-35 low Not Available [facility] [address] [place] [address], [address], 10/21/2022 16:56:59 10/22/19 23 10/21/2022 COMPL ETE BLOOD COUNT MCHC 32 g/dL 32-36 normal Not Available [facility] [address] [place] [address], [address], 10/21/2022 16:56:59 10/22/19 23 10/21/2022 COMPL ETE BLOOD COUNT RDW 16.2 % 11.0-1 5.0 high Not Available [facility] [address] [place] [address], [address], 10/21/2022 16:56:59 10/22/19 23 10/21/2022 COMPL ETE BLOOD COUNT MPV 8.1 fL 6.2-10 .5 normal Not Available [facility] [address] [place] [address], [address], 10/21/2022 16:56:59 10/22/19 23 10/21/2022 COMPL ETE BLOOD COUNT platelet count 258 10*3/ uL 130-40 0 normal Not Available [facility] [address] [place] [address], [address], 10/21/2022 16:56:59 10/22/19 23 10/21/2022 COMPL ETE BLOOD COUNT neutrophil,a bsolute 5.1 10*3/ uL 1.6-8. 4 normal Not Available [facility] [address] [place] [address], [address], 10/21/2022 16:56:59 10/22/19 23 10/21/2022 COMPL ETE BLOOD COUNT lymphocyte,a bsolute 3.0 10*3/ uL 0.4-5. 1 normal Not Available [facility] [address] [place] [address], [address], 10/21/2022 16:56:59 10/22/19 23 10/21/2022 COMPL ETE BLOOD COUNT monocyte,abs olute 0.5 10*3/ uL 0.0-1. 2 normal Not Available [facility] [address] [place] [address], [address], 10/21/2022 16:56:59 10/22/19 23 10/21/2022 COMPL ETE BLOOD COUNT eosinophil,a bsolute 0.4 10*3/ uL 0.0-0. 8 normal Not Available [facility] [address] [place] [address], [address], 10/21/2022 16:56:59 10/22/19 23 10/21/2022 COMPL ETE BLOOD COUNT basophil,abs olute 0.1 10*3/ uL 0.0-0. 3 normal Smear revie wed to confi rm cell morph ology . Not Available [facility] [address] [place] [address], [address], 10/21/2022 16:56:59 10/22/19 23 10/21/2022 COMPL ETE BLOOD COUNT % neutrophils 56.6 % 42.0-7 8.0 normal Not Available [facility] [address] [place] [address], [address], 10/21/2022 16:56:59 10/22/19 23 10/21/2022 COMPL ETE BLOOD COUNT % lymphocytes 33.1 % 11.0-4 7.0 normal Not Available [facility] [address] [place] [address], [address], 10/21/2022 16:56:59 10/22/19 23 10/21/2022 COMPL ETE BLOOD COUNT % monocytes 5.4 % 0.0-11 .0 normal Not Available [facility] [address] [place] [address], [address], 10/21/2022 16:56:59 10/22/19 23 10/21/2022 COMPL ETE BLOOD COUNT % eosinophils 4.1 % 0.0-7. 0 normal Not Available [facility] [address] [place] [address], [address], 10/21/2022 16:56:59 10/22/19 23 10/21/2022 COMPL ETE BLOOD COUNT % basophils 0.8 % 0.0-3. 0 normal Not Available [facility] [address] [place] [address], [address], 10/21/2022 16:56:59 10/22/19 23 10/21/2022 COMPL ETE BLOOD COUNT nucleated red cells 0.0 % 0.0-0. 9 normal Not Available [facility] [address] [place] [address], [address], 10/21/2022 16:56:59 10/22/19 23 10/21/2022 COMPL ETE BLOOD COUNT nucleated RBCs, absolute 0.00 10*3/ uL not estab. normal Not Available [facility] [address] [place] [address], [address], 10/21/2022 16:56:59 10/22/19 23 10/21/2022 MORPH OLOGY microcytosis SLIGHT abnormal Not Available [facility] [address] [place] [address], [address], 10/21/2022 16:57:02 10/22/19 23 10/21/2022 MORPH OLOGY hypochromasi a SLIGHT abnormal Not Available [facility] [address] [place] [address], [address], 10/21/2022 16:57:02 10/22/19 23 10/21/2022 MORPH OLOGY ovalocytes SLIGHT abnormal Not Available [facility] [address] [place] [address], [address], 10/21/2022 16:57:02 10/22/19 23 10/21/2022 hemog nikolay Valera hemoglobin A1C % 6.4 % 4.0 - 5.6 Not Available [address], [address], 10/21/2022 10:31:27 10/07/19 23 10/06/2022 XR, wrist + hand [facility] [address] [place] [address] Ginbjorn zepeda Name: CECILE zepeda : 1954 Shelley zepeda 0 Orderi ng Provid er: CHUNG Marie EXAM DATE: 2022 EXAM: XR RT HAND AND WRIST COMPLE TE HISTOR Y: Hand and wrist pain COMPAR ELLA: None. FINDIN GS: Modera te degene rative [...] Heber Neumann MD on 023 12:26 PM [email or web address] [facility] [address] [place] [address], [address], 10/07/2022 08:35:58 10/07/19 23 10/06/2022 XR, elbow , 3 or more view [facility] [address] [facility] [place] [address] Shelley zepeda Name: CECILE zepeda : 1954 [...] Heber Neumann MD on 023 1:39 PM [email or web address] [facility] [address] [place], [address], 10/06/2022 13:57:41 10/21/19 23 10/20/2022 XR, wrist , 2 view [facility] [address] [place] [address] Shelley zepeda Name: CECILE zepeda : 1954 [...] aguilera MD on 023 11:08 AM [email or web address] [facility] [place] [address], [place], [address], 10/20/2022 14:57:19 11/08/19 23 11/07/2022 XR, wrist , 3 or more view [facility] [address] [place] [address] Shelley zepeda Name: CECILE zepeda : 1954 Shelley zepeda 0 Orderi ng Provid er: [facility] EXAM DATE: 2022 EXAM: XR RT [...] Jeff aguilera MD on 11:39 AM [email or web address] [facility] [place] [address], [place], [address], 11/07/2022 15:43:11 12/02/19 23 12/01/2022 XR, wrist , 3 or more view [place] [facility] [address] [place] [address] Shelley t Name: CECILE zepeda : 1954 Shelley zepeda 0 Orderi ng Provid er: [facility] EXAM DATE: 2022 EXAM: XR RT [...] Jeff aguilera MD on 2022 10:06 AM [facility] [place] [address] , [place], [address], 12/14/2022 13:47:50 12/15/19 23 12/14/2022 CT, wrist , w/o contr ast [place] [facility] [address] [place] [address] Patibjorn zepeda Name: CECILE zepeda : 1954 [...] aguilera MD on 2022 11:28 AM [email or web address] [facility] [address] [place], [address], 12/14/2022 13:47:50 02/17/20 23 02/16/2023 XR, wrist , 2 view [place] [facility] [address] [place] [address] Shelley zepeda Name: CECILE zepeda : 1954 Shelley ezpeda 0 Orderi ng Provid er: BRYANT LUNDBERG [...] aguilera MD on 2022 12:43 PM [email or web address] [facility] [place] [address], [place], [address], 02/16/2023 13:49:48 Result Notes None recorded. Problems Name Problem SNOMED Code Status Onset Date Resolution Date Notes Provider Name and Address Organization Details Recorded Time Recurren t major depressi on 20907768 Active 2016 FREDIS HERNANDEZ MD [address] [place], [address], [facility] 3 10:12:43 Posttrau matic stress disorder 89672195 Active 2016 FREDIS HERNANDEZ MD [address] [place], [address], [facility] 3 10:12:47 Chronic obstruct florecita pulmonar y disease 34742949 Active 2016 FELIPE GRIFFITH PA-C [address] [place], [address], [facility] 3 14:14:26 Overweig ht [id number] Completed 201608/18/2022 FREDIS HERNANDEZ MD [address] [place], [address], [facility] 3 10:12:56 Type 2 diabetes mellitus without complica tion 794801678 Active 2016 FELIPE GRIFFITH PA-C [address] [place], [address], [facility] 3 14:14:50 Primary insomnia 1782282 Active 2016 FREDIS HERNANDEZ MD [address] [place], [address], [facility] 3 10:12:45 Restless legs 82176960 Active 2016 FELIPE GRIFFITH PA-C [address] [place], [address], [facility] 3 14:16:15 Screenin g for malignan t neoplasm of breast Active 2016 FREDIS HERNANDEZ MD [address] [place], [address], [facility] 3 10:12:41 Gastro-e sophagea l reflux disease with esophagi tis 673149336 Active 2016 EGD: 04/06/17 ; Gastriti s, Esophagi tis, No Dysplasi a FELIPE GRIFFITH PA-C [address] [place], [address], [facility] 3 14:14:41 Screenin g for malignan t neoplasm of colon Active 2017 COLONOSC OPY: 04/06/19 18; 1 Plyp; 5 Yr Rpt DUE: 04/07/22 FREDIS HERNANDEZ MD [address] [place], [address], [facility] 3 10:12:40 History of migraine 878238759 Active 2022 FELIPE GRIFFITH PA-C [address] [place], [address], [facility] 3 14:16:24 Hyperten sive disorder 98612182 Active 2022 FELIPE GRIFFITH PA-C [address] [place], [address], [facility] 3 14:16:32 Generali zed anxiety disorder 06714594 Active 2022 FREDIS HERNANDEZ MD [address] [place], [address], [facility] 3 10:13:08 Chest pain 77023664 Completed 201406/14/2022 FELIPE GRIFFITH PA-C [address] [place], [address], [facility] 3 14:14:34 Familial combined hyperlip idemia 918290409 Active 2015 FELIPE GRIFFITH PA-C [address] [place], [address], [facility] 3 14:14:37 Problem Notes None recorded. Procedures Surgical History Date Name Laterality Status Provider Name and Address Organization Details Recorded Time 023 Injection Tendon Sheath/Ligament completed LILIANA LUNDBERG MD [address] [place] [address], [address], [facility] 02/16/2023 13:20:02 023 Orthotic, WHO, Static Custom completed LUCIO YU JR, OTR/L, CHT [address] [place] [address], [address], [facility] 10/20/2022 13:39:10 023 PAF Exam completed So Mejia [facility] 06/09/2022 10:54:01 022 Preparation Antigens completed May [facility] 11/04/2021 10:05:45 022 PAF Exam completed LEANNA RIVERA MD [address] [place] [address], [address], [facility] 07/07/2021 09:15:40 022 PAF Exam completed Laura Teague [facility] 05/27/2021 11:12:47 022 Preparation Antigens completed Yamileth Alyson [facility] 05/11/2021 15:39:21 022 IV Hydration completed [facility] 04/21/2021 14:47:36 021 Preparation Antigens completed May [facility] 10/28/2020 12:20:05 020 Allergy Skin Test - Food completed GLENNY MAHAN MD [address] [place], [address], [facility] 07/22/2019 14:17:40 020 Allergy Skin Test - Enviromental completed GLENNY MAHAN MD [address] [place], [address], [facility] 07/22/2019 14:17:22 019 DXA Normal completed MADDIE FELICIANO MD [address] [place], [address], [facility] 08/17/2018 11:21:33 019 Cervical Medial Branch Blocks completed TAYLOR BERG MD [facility] [place], [address], [facility] 04/19/2018 13:04:47 019 Cervical Medial Branch Blocks completed TAYLOR BERG MD [address] [place] [address], [address], [facility] 04/18/2018 07:35:48 017 Post Void Residual; Catheter completed Brina Colby [facility] 02/02/2017 17:08:48 017 Tympanogram completed DA FUENTES, AUD [address] [place], [address], [facility] 07/07/2016 16:00:27 017 Audiogram completed DA FUENTES, AUD [address] [place], [address], [facility] 07/07/2016 16:00:25 017 Audiogram completed Kristal Stevenson [facility] 07/07/2016 16:03:[address] [facility] 07/07/2016 15:31:[address] [facility] 07/07/2016 15:16:25 Cholecystectomy w/cholang completed [facility] 07/07/2016 15:32:39 Hysterectomy/bladd er repair completed [facility] 07/07/2016 15:32:16 Hernia repair w/mesh completed [facility] 07/07/2016 15:32:29 Unlisted px neck/thorax completed [facility] 07/07/2016 15:32:55 Imaging Results None recorded. Procedure Notes None recorded. Medical Equipment None Reported. Allergies Allergen ID Allergen Name Allergen Category Reaction Reaction Severity Criticality Documentation Date Start Date Code Code System Note Provider Name and Address Organization Details Recorded Time 026073 Dilaudid medicatio n Not available Not available Not available 01/14/20162011 15562 3 RxNorm Comme nt: Creat ed By: Javid gavin;Cre ated Date: 2011 2:13: 30 PM; Not Available [facility] 6 10:54:28 531117 codeine phosphate medicatio n Not available Not available Not available 01/14/20162011 2672 RxNorm Comme nt: Creat ed By: Javid gavin;Cre ated Date: 2011 2:12: 16 PM; Not Available [facility] 6 10:54:28 [id number] morphine sulfate medicatio n Not available Not available Not available 01/14/20162011 05161 RxNorm Comme nt: Creat ed By: Javid gavin;Cre ated Date: 2011 2:12: 32 PM; Not Available [facility] 6 10:54:28 667894 hydrocodo ne bitartrat e medicatio n Not available Not available Not available 01/14/20162011 56783 9 RxNorm Comme nt: Creat ed By: Javid gavin;Cre ated Date: 2011 2:12: 47 PM; Not Available [facility] 6 12:56:47 204573 Zofran medicatio n Not available Not available Not available 07/07/2016 77432 RxNorm [facility] 7 15:30:37 100338 methocarb shawna medicatio n vomiting Not available Not available 07/09/20212021 6845 RxNorm [facility] 2 15:42:02 Medications Name Sig Start Date [...] Not Available Not Available Not Available BD Luer-Konrad Syringe 3 mL 23 x 1 USE [...] e 50 mcg/actua tion nasal spray,krunal pension [place] 1 spray twice a day by intranas [...] Last Updated DateTime 162.56 cm 24.4 kg/m2 65760.1 2 g 84 /min 97 % 97 % 100 mm[Hg] 65 mm[Hg] Madyson Blood [facility] 3 10:32:52 Date Recorded Body height Body mass index (BMI) Body weight Provider Name and Address Organization Details Last Updated DateTime 11/07/2022 162.56 cm 24.4 kg/m2 70676.12 g [facility] 11/07/2022 11:30:11 Date Recorded Body height Body mass index (BMI) Body weight Provider Name and Address Organization Details Last Updated DateTime 12/01/2022 162.56 cm 24.4 kg/m2 59864.12 g [facility] 12/01/2022 10:07:46 Date Recorded Body height Body mass index (BMI) Body weight Provider Name and Address Organization Details Last Updated DateTime 12/14/2022 162.56 cm 24.4 kg/m2 10832.12 g Peacechino Santiago [facility] 12/14/2022 13:03:16 Date Recorded Body height Body mass index (BMI) Body weight Provider Name and Address Organization Details Last Updated DateTime 02/16/2023 162.56 cm 24.4 kg/m2 67989.12 g Brina Isaac [facility] 02/16/2023 12:46:58 Social History Question Answer Notes LastModified by Organizat ion Details LastModified Time Tobacco Smoking Status Current Every Day [facility] 15:31:35 How Much Tobacco Do You Chew? None [email or web address] Information not available 06/26/2018 Marital Status [email or web address] Informat ion not available 05/14/2018 What Was The Date Of Your Most Recent Tobacco Screening? 09/06/2021 [email or web address] Information not available 09/06/2021 What Is Your Relationship Status? [email or web address] Information not available 05/25/2022 How Much Tobacco Do You Smoke? 0.5 PPD [email or web address] Information not available 06/05/2020 Has Tobacco Cessation Counseling Been Provided? Yes [email or web address] Information not available 02/02/2017 On What Date Was Tobacco Cessation Counseling Provided? 08/24/2018 [email or web address] Information not available 08/24/2018 How Many Years [...] Not available 13:56:00 Medical History Condition Response Kidney Stones Y COPD Y Depression Y Anxiety Disorder Y Cancer N Headaches Y Migraines Y Bleeding Disorder N Tuberculosis Y Anesthesia Complications N High Cholesterol Y Allergies/Hayfever Y Chronic Obstructive Pulmonary Disease Y Diabetes Y Hyperlipidemia Y Hypertension N Gynecological HistoryNo gynecological history recorded. Obstetrics History GPAL:G 0 P 0 0 0 0 Immunizations Vaccine Type Date Status Note Provider Nam e and Address Organization Details Recorded Time Influenza, split virus, quadrivalent, preservative 9 completed Not Available [facility] 12/14/2022 12:33:02 Pneumococcal conjugate PCV 13 9 completed Not Available [facility] 12/14/2022 12:33:02 zoster recombinant 9 completed Shadia Burrell [facility] 12/27/2018 15:27:03 COVID-19, mRNA, LNP-S, PF, 30 mcg/0.3 mL dose 1 completed Annie Land [facility] 08/18/2022 10:06:33 COVID-19, mRNA, LNP-S, PF, 30 mcg/0.3 mL dose 1 completed [facility] 08/18/2022 10:06:33 Pneumococcal conjugate PCV20, polysaccharide FSI241 conjugate, adjuvant, PF 2 completed [facility] 08/18/2022 10:06:33 Influenza, split virus, trivalent, PF 7 completed [facility] 08/18/2022 10:06:33 Influenza, split virus, quadrivalent, PF 8 completed Not Available [facility] 03/09/2019 02:49:31 Past Encounters Encounter ID Performer Location Encounter Start Date Encounter Closed Date Diagnosis/Indication Diagnosis SNOMED-CT Code Diagnosis ICD10 Code Diagnosis Note [id number] QM[place] [address] 05/23/2016 17:58:10 05/23/2016 17:58:10 [id number] NOELLE HARDY MD [place] [facility] [address] [place] [address] 07/07/2016 14:59:34 07/08/2016 08:29:29 Bilateral tinnitus 7611844314 102 H93.13 Sensorineu ral hearing loss of bilateral ears 763201932 H90.3 Noise-leah renato hearing loss 11683893 H83.3X9 Nicotine dependence 5629 4008 F17.854 [id number] DA GUTIERREZRYCONCETTA [place] [facility] [address] [place] [address] 07/07/2016 15:52:50 07/07/2016 16:14:53 Bilateral tinnitus 8744103517 102 H93.13 Sensorineu ral hearing loss of bilateral ears 763898518 H90.3 [id number] LEANNA RIVERA MD [address] [address] 01/24/2017 09:13:34 01/30/2017 13:41:33 Gastro-esophageal reflux disease with esophagitis 965786224 K21.0 I discussed with the patient transition [...] effects. Screening for malignant neoplasm of breast 559344975 Z12.31 Past due, patient is willing to schedule with today's visit. Restless legs 08668890 G 25.81 Controlled with low-dose ropinirole . Continue current regimen. Primary insomnia 7642570 F51.01 As above. Type 2 olga betes mellitus without complication 504512221 E11.9 According to patient's historical recall, this has been very well controlled . We'll plan to check some routine diabetes labs today. Continue current regimen. Overweight 409084643 E66 .3 I discussed with the patient [...] as fatty/frie d foods in general. Dyslipidemia 417257344 E 78.5 Patient continues to tolerate high-inten sity Lipitor well. No history of strokes or heart attacks. History of diabetes mellitus type 2 and strong family history of combined hyperlipid emia and vascular disease. Chronic ob structive pulmonary disease 45416812 J44.9 Symptoms stable on current regimen. Posttrauma tic stress disorder 31243770 F43.10 Discussed the patient's PTSD and major depression at length. She is currently continuing to work on her acceptance and emotional reaction to her past history. Her medication s are so far well tolerated. She is going to continue to follow regularly with her long-stand ing psychiatri st and therapist at [facility]. Recurrent major depression 58813780 F33.9 Familial c ombined hyperlipidemia 835617670 E78.4 Screening for malignant neoplasm of colon 798995589 Z12.11 Needs documentat ion [id number] ABENA VALENTINE MD [facility] [address] [place] [address] 02/02/2017 16:05:46 02/03/2017 09:41:42 Urinary tract infectious disease 98021977 N39.0 Urgent mariel bianca to urinate 25926996 R39.15 [id number] LEANNA RIVERA MD [address] [address] 02/24/2017 11:35:02 02/28/2017 15:10:32 Type 2 diabetes mellitus without complication 882521305 E11.9 Patient did not have bloodwork checked as ordered at last visit. Recurrent major depression 66220317 F33.9 Mood and depressive symptoms are stable. Chronic ob structive pulmonary disease 18429446 J44.9 Symptoms stable on current regimen. Screening for malignant neoplasm of breast 111924940 Z12.31 Past due, patient is willing to schedule with today's visit. She missed her scheduled exam that was made at the last visit. Right side d chest pain 073920579 R07.89 Discussed the etiology and course or right rib fracture and costal chondritis . My suspicion for actual fracture is low but I think given her ongoing spinting an x-ray to predict length of recovery and possible underlying PNA is reasonable . Discussed the medication provided, the importance of limiting use, and side effects. F/u in 2 weeks. [id number] MD MOOSE [facility] [address] [place] [address] 03/02/2017 12:59:17 03/07/2017 13:23:24 Urinary tract infectious disease 85728940 N39.0 Increased frequency of urination 043092480 R35.0 [id number] LEANNA RIVERA MD [address] [address] 03/27/2017 10:11:42 03/28/2017 15:16:04 Gastro-esophageal reflux disease with esophagitis 061994563 K21.0 I discussed the etiology and course [...] pending her evaluation with gastroente rology. Gastroduodenitis 3195950 05 K29.90 Migraine 65569831 G43.90 9 hhis medical care is complicate [...] simpler regimen. Chronic ob structive pulmonary disease 97008074 J44.9 Symptoms stable on current regimen.st rongly encouraged smoking cessation [id number] MD [facility] [address] [place], [place] [address] 03/28/2017 10:38:47 03/28/2017 17:13:05 Urinary tract infectious disease 56234695 N39.0 Increased frequency of urination 542781731 R35.0 Abdominal pain 62530125 R10.9 Blood in urine 47514931 R31.9 [id number] SHANE PELAYO MD SURGERY SCHEDULE [address] [place] [address] 04/06/2017 07:55:31 04/06/2017 07:55:53 [id number] MD [facility] [address] [place] [address] 04/11/2017 10:23:33 04/11/2017 12:09:46 Abdominal pain 99118518 R10.9 Microscopic hematuria 19 9748803 R31.21 [id number] ABENA VALENTINE MD SURGERY SCHEDULE [address] [place] [address] 04/17/2017 08:43:38 04/17/2017 08:45:17 [id number] MD RICARDO RAOChino [facility] [address] [place] [address] 05/02/2017 12:57:17 05/02/2017 17:34:58 Abdominal pain 80017290 R10.9 [id number] LEANNA RIVERA MD [address] [place] [address] 06/23/2017 10:13:42 06/26/2017 10:11:25 Allergic rhinitis 73315127 J30.9 stable on Singulair Migraine with aura 23301 06 G43.109 I discussed with the patient [...] Type 2 olga betes mellitus without complication 013380580 E11.9 Patient did not have bloodwork checked [...] future visits. Chronic ob structive pulmonary disease 93360626 J44.9 symptoms are baseline and stable on current regimen. No change. Strongly encouraged smoking cessation as above. Moderate dehydration 475 8185345 105 E86.0 I had a conversati on with the patient regarding the chronic dehydratio n that she appears to have. Her mucosal membranes though moist were somewhat tacky, Lipitor cracked, there was some mild skin tenting. I really think that both her smoking and her dehydratio n contribute significan tly to her headaches and encouraged her to work on this. [id number] LEANNA RIVERA MD [address] [address] 06/29/2017 09:52:14 06/30/2017 12:01:34 Dysuria 33963632 R30.0 Spasm of back muscles 20 9744736 M62.830 Discussed the etiology and expected course of back pain due to muscle spasms. Discussed initial conservati ve care with gentle stretching /ROM exercises. Discussed the appropriat e use of NSAIDs/George roids as ordered. Discussed signs and symptoms of worsening or more serious conditions that would warrant reassessme nt in clinic or ED. Chronic pe lvic pain of female 111576551 R10.2 patient notes she has chronic pelvic pain issues and difficulty with urinating and has been placed on Murbach trach long-term by her gynecologi st. She would like a second opinion from a different gynecologi st with [facility] and is requesting a referral for this today. [id number] LEANNA RIVERA MD [address] [address] 07/18/2017 13:29:28 07/19/2017 12:28:30 Complicated migraine 213640524 G43.109 patient has follow-up scheduled with neurology. She's not had recurrence of symptoms. Continue current regimen. Panic attack 387344606 F 41.0 nno recurrence . Continue current anxiolytic and mood medicines. Type 2 olga betes mellitus without complication 492352911 E11.9 patient has tolerated de-escalat ion of [...] anti-glyce silvio. Chronic ob structive pulmonary disease 70037264 J44.9 breathing is at baseline and stable today. No change. Continue to encourage smoking cessation. [id number] LEANNA RIVERA MD [address] [place] [address] 07/25/2017 08:38:12 07/26/2017 08:57:04 Pain of joint of ankle and/or foot 837097073 M25.579 I suspect that this is soft [...] or emergency department . Migraine with aura 39457 06 G43.109 at her last visit we [...] twice a day at her next visit. [id number] HOANG RIVERO APRN CARDIOLOG Y [address] [place] [address] 07/28/2017 14:16:58 07/28/2017 15:40:26 Palpitations 58542635 R00.2 Patch holter monitor Pt was recently hospitaliz ed for a neurologic al event- undetermin ed whether TIA or atypical migraine Echo with bubble study in hospital: EF 50-55%, no intracardi ac shunting. Chest pain 95042864 R07. 9 Pt complains of subscapula r pain with associated diaphoresi s Last stress test greater than 15 years ago Set up outpatient stress test. Pt unsure if anxiety is playing a roll in her symptoms Tobacco de pendence syndrome 96816034 F17.200 smoking cessation counseling [id number] AZAM LOPEZ MD [facility] [address] [place] [address] 07/31/2017 09:03:51 07/31/2017 09:05:58 Palpitations 39245626 R00.2 [id number] SAÚL SIMEON PA-C SAME DAY [address] [address] 08/06/2017 09:12:50 08/06/2017 11:51:19 Pain in left foot 2242299260 37746 M79.958 [id number] LEANNA RIVERA MD [address] [address] 09/07/2017 10:34:03 09/08/2017 13:20:04 Acute maxillary sinusitis 92912654 J01.00 Acute exac erbation of chronic obstructive pulmonary disease 324814248 J44.1 Chronic ob structive pulmonary disease 27115336 J44.9 breathing is at baseline and stable today. No change. Continue to encourage smoking cessation. Gastro-eso phageal reflux disease with esophagitis 369576597 K21.0 I discussed the etiology and course [...] Carafate pending her evaluation with gastroente rology. [id number] LEANNA RIVERA MD [address] [address] 09/11/2017 13:36:24 09/12/2017 09:17:10 Acute exacerbation of chronic obstructive pulmonary disease 131003207 J44.1 patient breathing is noted to be dramatical ly improved with the initiation of standard COPD treatment. Patient is tolerating the steroids and the antibiotic s well. discussed ongoing treatment, side effects and signs or symptoms of worsening condition that would warrant reassessme nt. [id number] LEANNA RIVERA MD [address] [place] [address] 11/07/2017 10:11:40 11/08/2017 12:21:40 Nicotine dependence 03108451 F17.200 patient has made some progress with [...] is moving in with her cousin in [place] who does not smoke nor allow smoking in the house. Acute maxi llary sinusitis 23255867 J01.00 I discussed with the patient the [...] or the emergency department . Neck pain 40268611 M54.2 I discussed the etiology and course and treatment of spasms in the trapezius and neck muscles as well as their conservati ve treatment with rest, ice, NSAIDs, support and anti-infla mmatories as prescribed . Also described Flexeril use. Active or passive immunization 532712840 Z23 Restless legs 80060256 G 25.81 Controlled with low-dose ropinirole . Continue current regimen. Gastroduodenitis 3680994 05 K29.90 Dyslipidemia 812144529 E 78.5 Patient continues to tolerate high-inten sity Lipitor well. No history of strokes or heart attacks. History of diabetes mellitus type 2 and strong family history of combined hyperlipid emia and vascular disease. Primary insomnia 8032570 F51.01 As above. [id number] KEVIN CALI PA-C [address] [place] [address] 11/08/2017 10:23:47 11/08/2017 10:37:45 Administration of influenza vaccine 03687690 Z23 [id number] LEANNA RIVERA MD [address] [place] [address] 03/02/2018 09:59:47 03/05/2018 13:35:13 Nicotine dependence 87212299 F17.200 She still needs to stop smoking. We can readdress this once her emotions are more stable. Restless legs 09763373 G 25.81 Controlled with low-dose ropinirole . Continue current regimen. Gastroduodenitis 2334327 05 K29.90 Symptoms stable. We are going to hold on resuming PPI. Dyslipidemia 707226935 E 78.5 Patient continues to tolerate high-inten sity Lipitor well. No history of strokes or heart attacks. History of diabetes mellitus type 2 and strong family history of combined hyperlipid emia and vascular disease. Primary insomnia 4672975 F51.01 We had been gradually weaning her down and off of the Elavil. However, she had started taking it sporadical ly for sleep. Again, this is a medicine I would like to see her come off of altogether . However, I think stability in dosing will do her more good at this juncture. Generalize d anxiety disorder 49712644 F41.1 Migraine with aura 39810 06 G43.109 Headache recurrence is contribute d by emotional difficulti es, lack of sleep, and likely poor nutrition and hydration. She has a history of similar migraine headaches. Responde well to the below regimen in the past. She has a relative with her today that will be able to help drive her home. Type 2 olga betes mellitus without complication 703756800 E11.9 Not on antiglycem ics at this time. Has been through a period of severe stress. We are going to recheck labs in the near future. Recurrent major depression 75381506 F33.9 See Above. Cerebrovas cular accident 586650625 I63.9 Continue AC with LDA and continue high intensity lipitor. BP is low today. I suspect due to poor hydration and poor nutrition habits associated with her recent emotional trauma. Posttrauma tic stress disorder 95039709 F43.10 Patient has a known history of [...] lack of access to a doctor in [place]. I think that paramount for her stability [...] and has been back on her medicine. [id number] LEANNA RIVERA MD [address] [address] 03/16/2018 10:03:25 03/19/2018 16:17:07 Migraine with aura 2207380 G43.109 Patient would prefer a referral to pain management over neurology at this point. I discussed that I am agreeable with this. I am not sure that they aren't going to recommend similar interventi ons. Posttrauma tic stress disorder 20040594 F43.10 Patient has a known history of [...] Type 2 olga betes mellitus without complication 080562579 E11.9 Not on antiglycem ics at this time. Has been through a period of severe stress. We are going to recheck labs in the near future. [id number] TAYLOR BERG MD PAIN MEDICINE CLOSED [address] [place] [address] 04/03/2018 10:43:42 04/04/2018 11:52:08 Cervico-occipital neuralgia 09223852 M54.81 Cervical spondylosis 387 603862 M47.808 [id number] TAYLOR BERG MD [facility]ESS[facility] NAL [facility]ARGES [address], [address] [place] [address] 04/18/2018 06:57:41 04/23/2018 13:36:31 Cervical spondylosis 468386020 M47.369 [id number] TAYLOR BERG MD [facility] NAL [facility]ARGES [address], [address] [place] [address] 04/19/2018 12:19:22 04/23/2018 14:41:10 Cervical spondylosis 974054230 M47.886 [id number] LEANNA RIVERA MD [address] [address] 04/27/2018 09:04:26 04/30/2018 16:00:34 Migraine with aura 9605575 G43.109 Generalize d anxiety disorder 77555676 F41.1 Posttrauma tic stress disorder 54667062 F43.10 Patient has a known history of PTSD and Major depression and generally labile emotional status. 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 Burr he requests labs to r/o giant cell arteritis She does have some fatigue, headache and axial pain and stiffness which could definitely support this diagnosis he has also referred her to [facility] for opthamolog y eval., scheduled 06/14/18 Migraine without aura 56 995285 G43.009 She has long histor of headaches, so these may not be indication of GCA, will treat with toradol, phenergan which have helped before Hyperlipidemia 49647950 E78.5 Fatigue 81647524 R53.83 multifacto rial. It's been a while since she's had labs, so will go ahead with these to eval fatigue. [id number] LEANNA RIVERA MD [address] [place] [address] 06/26/2018 10:07:36 06/28/2018 12:37:10 Generalized anxiety disorder 88377110 F41.1 FLORY: 05/01/18; UDS: 06/26/18: CSA: 06/26/18 Patient is continuing to tolerate these medicines well. She is not having somnolence , confusion, or adverse affects. Her emotional decompensa tion from late last year is resolved. Primary insomnia 1323877 F51.01 We had been gradually weaning her down and off of the Elavil. However, she had started taking it sporadical ly for sleep. Again, this is a medicine I would like to see her come off of altogether . However, I think stability in dosing will do her more good at this juncture. Dyslipidemia 139540249 E 78.5 Patient continues to tolerate high-inten sity Lipitor well. No history of strokes or heart attacks. History of diabetes mellitus type 2 and strong family history of combined hyperlipid emia and vascular disease. 06-26-2018 HDL cholestero l 38 low triglyceri mariel 133 normal cholestero l 128 normal LDL cholestero l 63 normal Restless legs 00319264 G 25.81 Controlled with low-dose ropinirole . Continue current regimen. Chronic ob structive pulmonary disease 93955286 J44.9 breathing is at baseline and stable today. No change. Continue to encourage smoking cessation. Long-term drug therapy 954405591 Z79.899 See Above Anterior i schemic optic neuropathy of right eye 5650884593 8859611 H47.011 This is a concerning diagnosis. She [...] Aggrenox, or Coumadin. Migraine without aura 56 818509 G43.009 She has long histor of headaches, so these may not be indication of GCA, will treat with toradol, phenergan which have helped before Fatigue 68279442 R53.83 multifacto rial. It's been a while [...] normal GFR 113 normal GFR non-chrissie n mexican 98 normal Hyperlipidemia 00715792 E78.5 See Above. Cerebrovas cular accident 382387174 I63.9 Hypervolemia 04977416 E8 7.70 Migraine 92212083 G43.90 9 History of transient ischemic attack 244960103 Z86.73 See Above. [id number] LEANNA DAVIDSON MD NEUROLOGY [facility] CL[facility] [address] [place] [address] 07/23/2018 11:28:18 07/24/2018 08:24:50 Snoring 40627383 R06.83 Migraine without aura 56 375209 G43.009 Anterior i schemic optic neuropathy of right eye 2826622075 6325934 H47.632 [id number] LEANNA RIVERA MD [address] [address] 07/27/2018 09:15:54 07/30/2018 15:10:11 Adult health examination 714216618 Z00.00 Discussed routine health and wellness issues. [...] routine. Screening for malignant neoplasm of colon 645824768 Z12.11 COLONOSCOP Y: 04/06/2017 ; 1 Plyp; 5 Yr Rpt DUE: 04/07/22 Screening for malignant neoplasm of breast 205630557 Z12.31 New Sx of Lump in Left breast Menopause 428965991 Z78. 0 Past due, will order today. Patient is agreeable. She is high risk. Screening for cardiovascular system disease 924227386 Z13.6 CT AP W/o for Kidney stones in 03/2017 Documented normal Caliber Aorta Tobacco de pendence syndrome 43152647 F17.290 Continued to encourage smoking cessation. History of smoking 77906 84411 9565066 Z87.891 Counseled patient regarding lung cancer screening with low dose CT. Patient has not had LDCT lung cancer screening in the past and she is interested in starting this.l At [facility] risk for falls 971265325 Z91.81 Recommende d vitamin D3 and calcium supplement [facility]. Discussed the importance of fall prevention keeping the floors free of tripping hazards including throw rugs and debris, and using safety rails. Screening for disorder 749249349 Z13.9 Dementia Screening Performed Mastodynia of left breast 1187680325 8500814 N64.4 Her exam demonstrat es some mixed features. There is some tender soft tissue edema and fibrocysti c tiss in the area. The area is definitely very tender. Remarkably so. We are going to proceed with a diagnostic workup on that same side. Screening for osteoporosis 081031502 Z13.820 DEXA ordered today. Restless legs 89671695 G 25.81 Controlled with low-dose ropinirole . Continue current regimen. Generalize d anxiety disorder 17237626 F41.1 FLORY: 07/23/18; UDS: 06/26/18: CSA: 06/26/18 Patient is continuing to tolerate these medicines well. She is not having somnolence , confusion, or adverse affects. Her emotional decompensa tion from late last year is resolved. Migraine without aura 56 516251 G43.009 We are going to treat her today for her acute symptoms. I am hopeful that she will respond as she has in the past. I am agreeable with her resuming her Topamax. I do thinks she should touch base with her neurologis t regarding this issue. Hot sweats 017383191 R61 07-27-2018 T3, total 116.0 normal T4,free 0.84 low TSH 1.700 normal ESR, automated 51 high [id number] MADDIE FELICIANO MD [facility] [address] [place] [address] 08/17/2018 10:09:15 08/17/2018 11:47:25 Menopausal syndrome 587141163 N95.8 [id number] LEANNA DAVIDSON MD NEUROLOGY [facility] [address] [place] [address] 08/24/2018 13:40:50 08/24/2018 15:01:43 Migraine without aura 89260832 G43.009 Non-arteri tic ischemic optic neuropathy 624151216 H47.518 [id number] LEANNA RIVERA MD [facility] [address] [place] [address] 09/26/2018 08:50:20 10/01/2018 09:36:41 Tobacco dependence syndrome 36625748 F17.290 Continued to encourage smoking cessation. History of smoking 41593 10908 3025581 Z87.891 Counseled patient regarding lung cancer screening with low dose CT. Patient has not had LDCT lung cancer screening in the past and she is interested in starting this.l Generalize d anxiety disorder 42398079 F41.1 FLORY: 07/23/18; UDS: 06/26/18: CSA: 06/26/18 We are going to change her valium to klonopin. Discussed the risks associated with these medicines. Patient is continuing to tolerate these medicines well. She is not having somnolence , confusion, or adverse affects. Her emotional decompensa tion from late last year is resolved. Acute maxi llary sinusitis 00121095 J01.00 I discussed with the patient the [...] in clinic or the emergency department . [id number] LEANNA DAVIDSON MD NEUROLOGY [facility] [address] [place] [address] 10/08/2018 11:23:47 10/08/2018 16:06:38 Chronic intractable migraine without aura 5784647075 35889 G43.740 [id number] LEANNA RIVERA MD [address] [address] 12/27/2018 14:16:02 01/01/2019 13:57:34 Tobacco dependence syndrome 86193895 F17.290 Continued to encourage smoking cessation. History of smoking 15800 28177 0267592 Z87.891 Counseled patient regarding lung cancer screening with low dose CT. Patient has not had LDCT lung cancer screening in the past and she is interested in starting this.l Generalize d anxiety disorder 44085616 F41.1 FLORY: 01/05/19; UDS: 06/26/18: CSA: 06/26/18 We are going to change her valium to klonopin. Discussed the risks associated with these medicines. Patient is continuing to tolerate these medicines well. She is not having somnolence , confusion, or adverse affects. Her emotional decompensa tion from late last year is resolved. Acute maxi llary sinusitis 67524957 J01.00 \ Migraine with aura 53180 06 G43.282 [id number] LEANNA RIVERA MD [address] [address] 03/06/2019 10:03:25 03/08/2019 16:49:56 Bilateral foot joint pain 1449547123 4314936 M79.671 I really think the primary cause for her symptoms is soft tissue strain due to very poor supporting footwear. Discussed the importance of shoes that adequately support and protect the foot with some arch support as well. Discussed powerstep inserts. IMPRESSION : 1. There are mild degenerati ve changes in both feet.Inter preted By: Heber Neumann MDElectron ically Signed By: Heber Neumann MD on 03/06/2019 11:05 AM Type 2 olga ezra mellitus without complication 946030430 E11.9 Not at goal and I will [...] normal GFR 110 normal GFR non-chrissie n mexican 95 normal Recurrent major depression 73229971 F33.9 See Above. Cerebrovas cular accident 594589974 I63.9 Nicotine dependence 5629 4008 F17.200 Discussed [...] c history. Chronic ob structive pulmonary disease 44608748 J44.9 breathing is at baseline and stable today. No change. Continue to encourage smoking cessation. Generalize d anxiety disorder 16574943 F41.1 FLORY: 03/05/2019; UDS: 06/26/18: CSA: 06/26/18 We are going to change her valium to klonopin. Discussed the risks associated with these medicines. Patient is continuing to tolerate these medicines well. She is not having somnolence , confusion, or adverse affects. Her emotional decompensa tion from late last year is resolved. 06-26-2018 Marijuana (THC50) Negative Cocaine (LJP630) Negative Opiates (YMM3193) Negative Amphetamin e (VVM0984) Negative Methamphet amine (VNL9403) Negative Phencyclid ine (PCP25) Negative Ectasy (ZVOV967) Negative Barbituate s (KAL755) Negative Benzodiaze pines (BYV412) POSITIVE Methadone (TZK541) Negative Tricyclic Antidepres sants (ZQG3702) POSITIVE Oxycodone (OMG743) Negative Internal QC Okay Hypothyroidism 28428532 E03.9 03-06-2019 TSH 1.390 normal T4,free 0.73 low Anemia 623872754 D64.9 03-06-2019 white blood cells 8.2 normal red blood cells 5.29 high hemoglobin 13.4 normal hematocrit 41.0 normal platelet count 236 normal iron 64 normal total iron binding cap. 340 normal unsat.iron binding cap. 276 normal % saturation 19 normal folic acid 17.8 normal vitamin B12 480 normal [id number] LEANNA RIVERA MD [address] [address] 05/07/2019 09:56:14 05/09/2019 12:39:59 Cough 19503320 R05 Has a sore throat 617833 002 J02.9 Acute exac erbation of chronic obstructive pulmonary disease 137520282 J44.1 IMPRESSION : COPD/bronc hitis with increased density in the right middle lobe suggesting infiltrate with atelectasi s Interprete d By: Heber Neumann MD Electronic ally Signed By: Heber Neumann MD on 05/07/2019 11:49 AM [id number] LEANNA RIVERA MD [address] [address] 06/21/2019 11:05:16 06/21/2019 16:08:30 Acute maxillary sinusitis 57175031 J01.00 Seasonal a llergic rhinitis 101359333 J30.2 [id number] GLENNY MAHAN MD ALLERGY [address] [facility] [facility] [place] [address] 07/18/2019 08:11:08 07/18/2019 09:05:23 Allergic rhinitis 38596951 J30.9 Perennial with seasonal exacerbati on. Previous testing positive to mold, pollen and dust. we could not perform testing today due to recent zyrtec intake return for allergy testing consider allergy IT as it helped her before. Adverse re action to food 045605158 T78.1XXA we could not perform testing today due to recent zyrtec intake return for allergy testing Adverse re action to drug 49359599 T50.905A avoid pain medicaton containing opioid Recurrent acute sinusitis 444564909 J01.91 anti-aller gy as above recommend allergy IT Chronic ob structive pulmonary disease 41283589 J44.9 continue symbicort 160/4.5 1 puff BID, rinse mouth after use albuterol PRN Cigarette smoker 9205265 7 F17.210 I spent 5 min discussing the risk associated with smoking, which include but not limited to lung cancer, COPD, cardiovasc ular diseases, stroke etc. She tried wellbutrin and chantix, but did not feel that helped. She is down to 1/3 pack a day. I recommend her to quit smoking completely Stress 82294083 Z73.3 she reports lots of stress in life discussed healthy diet, regular exercise and relax technique Gastro-eso phageal reflux disease with esophagitis 072438930 K21.0 she had biopsy done in 2018 and showed chronic inflammati on of esophagus not on any anti-acid medication may need GI evaluation again [id number] GLENNY MAHAN MD ALLERGY [address] [place] [address] 07/22/2019 13:33:11 07/22/2019 14:26:25 Allergic rhinitis 53687311 J30.9 Perennial with seasonal exacerbati on. Previous [...] our office. Adverse re action to food 905137967 T78.1XXA negative to food allergy testingdis cussed food eliminatio n and re-introdu ction strategy Adverse re action to drug 48512667 T50.905D avoid pain medicaton containing opioid Recurrent acute sinusitis 434945637 J01.91 anti-aller gy as above recommend allergy IT Chronic ob structive pulmonary disease 14189737 J44.9 continue symbicort 160/4.5 1 puff BID, rinse mouth after use albuterol PRN Gastro-eso phageal reflux disease with esophagitis 006317536 K21.0 she had biopsy done in 2018 and showed chronic inflammati on of esophagus not on any anti-acid medication may need GI evaluation again [id number] GLENNY MAHAN MD ALLERGY [address] [facility] [place] [address] 08/12/2019 09:34:19 08/12/2019 09:35:05 [id number] MADDIE FELICIANO MD [address] [address] 09/03/2019 14:09:42 09/03/2019 14:37:49 [id number] LARISA JOHNSON APRN [address] [address] 09/10/2019 12:16:37 09/10/2019 12:40:25 [id number] LEANNA RIVERA MD [address] [address] 09/19/2019 15:58:35 09/20/2019 14:51:14 Generalized anxiety disorder 30589342 F41.1 FLORY:06/27; UDS: 06/26/18: CSA: 06/26/18 We are going to change her valium to klonopin. Discussed the risks associated with these medicines. Patient is continuing to tolerate these medicines well. She is not having somnolence , confusion, or adverse affects. Her emotional decompensa tion from late last year is resolved. 06-26-2018 Marijuana (THC50) Negative Cocaine (CFX435) Negative Opiates (OKW0265) Negative Amphetamin e (ECD9366) Negative Methamphet amine (WJA3580) Negative Phencyclid ine (PCP25) Negative Ectasy (FDHU233) Negative Barbituate s (UDN494) Negative Benzodiaze pines (NHX276) POSITIVE Methadone (LCJ233) Negative Tricyclic Antidepres sants (LEX5046) POSITIVE Oxycodone (WLQ812) Negative Internal QC Okay Long-term drug therapy 745895503 Z79.899 See Above History of smoking 64866 06561 7801797 Z87.891 Counseled patient regarding lung cancer screening with low dose CT. Patient has not had LDCT lung cancer screening in the past and she is interested in starting this.l Migraine with aura 44950 06 G43.109 Uncontroll ed type 2 diabetes mellitus 944082824 E11.65 Screening for malignant neoplasm of breast 111695414 Z12.31 New Sx of Lump in Left breast Screening for malignant neoplasm of colon 993726923 Z12.11 COLONOSCOP Y: 04/06/2017 ; 1 Plyp; 5 Yr Rpt DUE: 04/07/22 Screening for malignant neoplasm of cervix 979198603 Z12.4 [id number] MADDIE FELICIANO MD [address] [address] 10/02/2019 13:22:15 10/02/2019 13:45:12 [id number] PADMA SESAY MD [address] [address] 10/16/2019 10:51:45 10/16/2019 11:13:04 [id number] LEANNA RIVERA MD [address] [address] 10/24/2019 14:54:15 10/24/2019 15:07:14 [id number] LARISA JOHNSON APRN [address] [address] 11/06/2019 15:43:02 11/06/2019 15:53:35 [id number] MADDIE FELICIANO MD [address] [address] 11/14/2019 13:05:56 11/14/2019 13:15:50 [id number] LEANNA RIVERA MD [address] [address] 11/21/2019 12:35:33 11/21/2019 12:54:51 [id number] GLENNY MAHAN MD ALLERGY [address] [facility] [place] [address] 11/25/2019 10:16:23 11/25/2019 14:43:44 Allergic rhinitis 03299534 J30.9 Perennial with seasonal exacerbati on. Previous [...] it well Adverse re action to drug 92487421 T50.905D avoid pain medicaton containing opioid Recurrent acute sinusitis 411215157 J01.91 no sinusitis in between anti-aller gy as above continue allergy IT Chronic ob structive pulmonary disease 15532394 J44.9 doing well continue symbicort 160/4.5 1 puff BID, rinse mouth after use albuterol PRN Gastroesop hageal reflux disease without esophagitis 302341008 K21.9 she had biopsy done in 2018 and showed chronic inflammati on of esophagus not on any anti-acid medication may need GI evaluation again [id number] PADMA SESAY MD [address] [address] 11/29/2019 13:04:12 11/29/2019 13:24:36 [id number] PADMA SESAY MD [address] [address] 12/05/2019 12:09:28 12/05/2019 12:23:55 [id number] LEANNA RIVERA MD [address] [address] 12/12/2019 12:57:27 12/12/2019 13:42:17 Generalized anxiety disorder 22252416 F41.1 FLORY:; UDS: 06/26/18: CSA: 06/26/18 Prescripti on # Filled Written Drug Label Qty Days Strength MEDD Prescriber Pharmacy State 6307-10-12 2019-12-02 clonazePAM 90 30 1MG NA Leanna Rivera - [id number] [place] [place] [address] 0509-09-09 2019-10-14 Pregabalin 90 30 100MG FERNANDO Garcia - [id number] [facility], [place] [address] 7149-09-04 2019-10-25 clonazePAM 90 30 1MG NA Leanna [employer] [facility] [id number] [facility] [place] [address] 2913-08-12 2019-09-21 1 Pregabalin 90 30 75MG NA Rian Garcia [facility] [id number] [facility] [place] [address] 7752-08-03 2019-09-23 Gabapentin 120 30 800MG NA Rian Garcia [facility] [id number] [facility] [place] [address] 1082-07-30 2019-09-19 clonazePAM 90 30 1MG NA Leanna Rivera [facility] [id number] [facility] [place] [address] 2019-08-21 2019-06-21 Gabapentin 120 30 800MG NA Rian Garcia [facility] [id number] [facility] [place] [address] 2019-08-21 2019-08-21 clonazePAM 90 30 1MG NA Leanna [employer] [facility] [id number] [facility] [place] [address] 2019-07-23 1 Gabapentin 120 30 800MG NA Rian Garcia [facility] [id number] [facility] [place] 1 Long-term drug therapy 491976503 Z79.899 Uncontroll ed type 2 diabetes mellitus 625771302 E11.65 Migraine with aura 94543 06 G43.109 History of smoking 53214 86874 0935601 Z87.891 Screening for malignant neoplasm of breast 374040749 Z12.31 New Sx of Lump in Left breast Screening for malignant neoplasm of colon 059166737 Z12.11 COLONOSCOP Y: 04/06/2017 ; 1 Plyp; 5 Yr Rpt DUE: 04/07/22 Screening for malignant neoplasm of cervix 846880416 Z12.4 Administra tion of influenza vaccine 80769683 Z23 Memory impairment 766605 006 R41.3 [id number] LARISA JOHNSON APRN [address] [place] [address] 12/26/2019 12:58:33 12/26/2019 13:52:39 [id number] PADMA SESAY MD [address] [place] [address] 01/06/2020 15:23:01 01/06/2020 16:40:44 Herpes zoster 3668495 B02.9 [id number] LEANNA RIVERA MD [address] [place] [address] 01/17/2020 13:26:28 01/17/2020 13:33:57 [id number] LEANNA RIVERA MD [address] [place] [address] 01/23/2020 15:29:54 01/25/2020 19:51:02 Chronic pain syndrome 161362534 G89.4 Migraine 37968882 G43.90 9 Generalize d anxiety disorder 41444512 F41.1 FLORY:; UDS: 06/26/18: CSA: 06/26/18 Prescripti on # Filled Written Drug Label Qty Days Strength MEDD Prescriber Pharmacy State 6681-10-12 2019-12-02 clonazePAM 90 30 1MG NA Leanna [employer] [facility] [id number] [facility], [place], [place] [address] 4322-09-09 2019-10-14 Pregabalin 90 30 100MG NA Rian Garcia [facility] [id number] [facility], [facility] [place] [address] 0145-09-04 2019-10-25 clonazePAM 90 30 1MG FERNANDO Garvey [id number] [facility], [facility] [place] [address] 7739-08-12 2019-10-01 Pregabalin 90 30 75MG NA Rian Garcia [facility] [id number] [facility], [place], [place] [address] 6601-08-03 2019-09-23 Gabapentin 120 30 800MG NA Rian Garvey [id number] [facility], [facility] [place] [address] 4677-07-30 2019-09-19 clonazePAM 90 30 1MG NA Leanna B [employer] [facility] [id number] [facility], [place] [address] 2019-08-21 2019-06-21 Gabapentin 120 30 800MG NA Rian Garcia - [id number] [facility] [place] [address] 2019-08-21 2019-08-21 clonazePAM 90 30 1MG NA Leanna Rivera - [id number] [facility] [place] [address] 2019-07-23 2019-06-21 Gabapentin 120 30 800MG NA Rian Garcia [id number] [facility], [place] 1 [id number] MADDIE FELICIANO MD [address] [place] [address] 01/31/2020 14:33:12 01/31/2020 14:42:36 [id number] LEANNA RIVERA MD [address] [place] [address] 02/10/2020 14:04:40 02/10/2020 14:30:36 [id number] MADDIE FELICIANO MD [address] [facility] [address] 02/25/2020 11:16:29 02/25/2020 11:29:32 [id number] MADDIE FELICIANO MD [address] [place] [address] 03/02/2020 12:43:01 03/02/2020 12:59:45 [id number] LEANNA RIVERA MD [address] [facility] [place] [address] 03/12/2020 09:50:53 03/12/2020 10:53:14 Chronic pain syndrome 168358434 G89.4 FLORY:2 03/12; UDS: 09/19/19: CSA: 09/23/19 QTY DAYS STRENGTH MEDD PRESCRIBER PHARMACY STATE 02-22-2020 clonazePAM 90 30 1MG NA Leanna Anum - [id number] [facility] [place] [id number] 02-29-2020 02-28-2020 oxyCODONEH CL/ACETAMI NOPHEN 15 30 5MG-325MG 3.75 Danielkeila Kahn - [id number] [facility] [place] [address] 03-28-2019 12-27-2018 clonazePAM 90 30 1MG NA Leanna [employer] [facility] [id number] [facility] [place] [address] 03-28-2019 03-28-2019 Gabapentin 120 30 800MG NA [employer] [id number] [facility] [place] [address] 04-24-2019 03-06-2019 clonazePAM 90 30 1MG NA Leanna [employer] [facility] [id number] [facility] [place] [address] 04-24-2019 03-28-2019 Gabapentin 120 30 800MG NA [employer] [id number] [facility] [place] [address] 05-24-2019 03-28-2019 Gabapentin 120 30 800MG NA [employer] [id number] [facility] [place] [address] 05-25-2019 03-06-2019 clonazePAM 90 30 1MG NA Leanna [employer] [facility] [id number] [facility] [place] [address] 06-21-2019 03-06-2019 clonazePAM 90 30 1MG NA LeannaVizerra [id number] [facility] [place] [address] 06-21-2019 06-21-2019 Gabapentin 120 30 800MG NA [employer] [id number] [facility], [place] 1 Migraine 26144995 G43.90 9 Excellent response to recent injection therapy by pain management . Symptoms are essentiall y resolved on current regimen. No change. Generalize d anxiety disorder 99323550 F41.1 FLORY:02/21 03/12; UDS: 09/19/19: CSA: 09/23/19 QTY DAYS STRENGTH MEDD PRESCRIBER PHARMACY STATE 02-22-2020 01-23-2020 clonazePAM 90 30 1MG NA [facility] [id number] [facility] [place] [address] 02-29-2020 02-28-2020 oxyCODONEH CL/ACETAMI NOPHEN 15 30 5MG-325MG 3.75 Danielkeila Kahn - [id number] [facility] [place], [place] [address] 03-28-2019 12-27-2018 clonazePAM 90 30 1MG NA [facility] [id number] [facility] [place] [address] 03-28-2019 03-28-2019 Gabapentin 120 30 800MG NA Rian [id number] [place] [address] 04-24-2019 03-06-2019 clonazePAM 90 30 1MG NA Leanna [employer] [facility] [id number] [facility] [place] [address] 04-24-2019 03-28-2019 Gabapentin 120 30 800MG NA Rian Garcia [id number] [facility] [place] [address] 05-24-2019 03-28-2019 Gabapentin 120 30 800MG NA Rian Garcia [id number] [facility] [place] [address] 05-25-2019 03-06-2019 clonazePAM 90 30 1MG NA Leanna May [employer] [id number] [facility] [place] [address] 06-21-2019 03-06-2019 clonazePAM 90 30 1MG NA Leanna [employer] [facility] [id number] [facility] [place] [address] 06-21-2019 06-21-2019 Gabapentin 120 30 800MG Rian Garcia [employer] [id number] [facility] [place] 1 MEDS: Klonopin 1mg TID, Elavil 50mg qD, Zoloft 200 daily, Topamax 100 twice a day Uncontroll ed type 2 diabetes mellitus 750074414 E11.65 Since her last visit, the hope [...] estimated avg. glucose 160 normal MEDS: Dyslipidemia 286038451 E 78.5 06-26-2018 HDL cholestero l 38 low triglyceri mariel 133 normal cholestero l 128 normal LDL cholestero l 63 normal MEDS: Lipitor 80 Chronic ob structive pulmonary disease 63764232 J44.9 breathing is at baseline and stable today. No change. Continue to encourage smoking cessation. 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 History of cerebrovascular accident 367825247 Z86.73 MEDS: Lipitor 80, ASA 81, Restless legs 26777556 G 25.81 Controlled with low-dose ropinirole . Continue current regimen. Gastro-eso phageal reflux disease with esophagitis 182548106 K21.00 See Above. Empiric trial with plan to F/u in 2 weeks. If not improving considerleonardo roman Cardiac evaluation . [id number] MADDIE FELICIANO MD [address] [place] [address] 03/19/2020 14:54:45 03/19/2020 15:26:31 [id number] LEANNA RIVERA MD [address] [address] 03/27/2020 14:27:37 03/27/2020 14:39:30 [id number] LARISA JOSEPHJOSÉ ELIN [address] [address] 04/08/2020 10:55:14 04/08/2020 11:06:08 [id number] LARISA JOSÉ JOHNSONN [address] [address] 04/23/2020 13:11:53 04/23/2020 13:25:08 [id number] LARISA JOHNSON APRN [address] [address] 05/01/2020 15:24:17 05/01/2020 15:36:35 [id number] LEANNA RIVERA MD [address] [address] 05/05/2020 14:33:36 05/05/2020 14:59:51 [id number] LEANNA RIVERA MD [address] [address] 05/14/2020 11:32:15 05/14/2020 11:42:14 [id number] PADMA SESAY MD [address] [address] 05/21/2020 11:58:25 05/21/2020 12:09:21 [id number] LARISA JOHNSON APRN [address] [address] 05/26/2020 16:22:41 05/26/2020 16:38:21 [id number] LEANNA RIVERA MD [address] [address] 05/28/2020 12:28:31 05/28/2020 13:50:47 Gastro-esophageal reflux disease with esophagitis 273791399 K21.00 See Above. Empiric trial with plan to F/u in 2 weeks. If not improving vlad roman Cardiac evaluation . History of cerebrovascular accident 560043790 Z86.73 MEDS: Lipitor 80, ASA 81, Uncontroll ed type 2 diabetes mellitus 610479958 E11.65 started daily metformin after her last [...] 160 normal MEDS: Generalize d anxiety disorder 65013988 F41.1 FLORY:05/28; UDS: 09/19/19: CSA: 09/23/19 MEDS: Klonopin 1mg TID, Elavil 50mg qD, Zoloft 200 daily, Topamax 100 twice a day Dyslipidemia 722337612 E 78.5 06-26-2018 HDL cholestero l 38 low triglyceri mariel 133 normal cholestero l 128 normal LDL cholestero l 63 normal MEDS: Lipitor 80 Chronic ob structive pulmonary disease 50199774 J44.9 breathing is at baseline and stable today. No change. Continue to encourage smoking cessation. MEDS: Trelegy, Albuterol Chronic pain syndrome 37 9569530 G89.4 FLORY:02/21 03/12; UDS: 09/19/19: CSA: 09/23/19 Migraine 64815489 G43.90 9 Restless legs 66743002 G 25.81 Controlled with low-dose ropinirole . Continue current regimen. [id number] LEANNA RIVERA MD [address] [address] 06/03/2020 13:21:39 06/03/2020 13:40:43 [id number] DOLLY BROWN PA-C SAME DAY [address] [address] 06/05/2020 13:18:42 06/05/2020 15:04:52 Cough 12730977 R05 Acute exac erbation of chronic obstructive pulmonary disease 952966654 J44.1 Suspect COPD exacerbati on but cannot rule out COVID 19 Will send COVID 19 swab today. If positive and test returned within 10 days she would be a candidate for infusion. O2 92% on RA here with mild dyspnea Will start prednisone and doxycyclin e She will return for shortness of breath, fever, worsening symptoms Continue mucinex [id number] LARISA JOHNSON APRN [address] [address] 06/08/2020 14:33:44 06/08/2020 14:46:43 [id number] LEANNA RIVERA MD [address] [address] 06/17/2020 09:44:50 06/17/2020 15:05:06 Uncontrolled type 2 diabetes mellitus 223902816 E11.65 03-12-2020 glyco HGB A1C 7.9 high estimated avg. glucose 180 normal 09-23-2019 glyco HGB A1C 7.2 high estimated avg. glucose 160 normal MEDS: Seasonal a llergic rhinitis 718390512 J30.2 Migraine 97068574 G43.90 9 Neck pain 80504313 M54.2 undergoing injection therapy with Dr. Kahn tomorrow. Hospital i npatient stay within past 30 days 6942993780 106 Z76.89 [id number] LEANNA RIVERA MD [address] [address] 06/22/2020 11:33:09 06/22/2020 11:42:10 [id number] SAÚL SIMEON PA-C SAME DAY [address] [address] 06/26/2020 13:53:02 06/26/2020 15:36:35 Nausea and vomiting 16797592 R11.2 Dehydration 21098400 E86 .0 [id number] PADMA SESAY MD [address] [address] 06/30/2020 11:46:20 06/30/2020 11:57:06 [id number] MADDIE FELICIANO MD [address] [address] 07/06/2020 13:35:16 07/06/2020 13:47:14 [id number] LEANNA RIVERA MD [address] [address] 07/10/2020 14:38:47 07/10/2020 14:52:05 [id number] LEANNA RIVERA MD [address] [address] 07/21/2020 14:36:15 07/21/2020 15:19:45 Uncontrolled type 2 diabetes mellitus 471610318 E11.65 at her last visit we had been concerned about her worsening hemoglobin A1c. We had started her on Trulicity: 05/28/20: HEMOGLOBIN A1C = 7.8 03-12-2020 glyco HGB A1C 7.9 high estimated avg. glucose 180 normal 09-23-2019 glyco HGB A1C 7.2 high estimated avg. glucose 160 normal MEDS: Migraine 40399655 G43.90 9 Seasonal a llergic rhinitis 676906754 J30.2 Neck pain 32853768 M54.2 undergoing injection therapy with Dr. Kahn tomorrow. Generalize d anxiety disorder 02137925 F41.1 FLORY:05/28; UDS: 09/19/19: CSA: 09/23/19 MEDS: Klonopin 1mg TID, Elavil 50mg qD, Zoloft 200 daily, Topamax 100 twice a day Abdominal pain 31296411 R10.9 Essential hypertension [id number] I10 03/12/20: CREATININE = 0.63, GFR = 95 HEMOGLOBIN = 13.4, HEMATOCRIT = 41.2, PLATELET 225, THE VBC = 8 point Neuropathy 293752693 G62 .9 Hypothyroidism 57687243 E03.9 03-06-2019 TSH 1.390 normal T4,free 0.73 low [id number] PADMA SESAY MD [address] [address] 07/24/2020 09:32:04 07/24/2020 09:40:06 [id number] MADDIE FELICIANO MD [address] [place], [place] [address] 07/29/2020 12:31:25 07/29/2020 12:47:52 [id number] MADDIE FELICIANO MD [address] [place], [place] [address] 08/04/2020 13:14:46 08/04/2020 13:31:10 [id number] MADDIE FELICIANO MD [address] [place], [place] [address] 08/06/2020 15:03:22 08/06/2020 15:22:36 [id number] PADMA SESAY MD [address] [place], [place] [address] 08/18/2020 13:40:23 08/18/2020 13:55:01 [id number] LEANNA RIVERA MD [address] [place], [place] [address] 7 08/26/2020 09:52:37 08/27/2020 14:50:52 Uncontrolled type 2 diabetes mellitus [id number] E11.65 at her last visit we had been concerned about her worsening hemoglobin A1c. We had started her on Trulicity: 07/21/20: Hemoglobin A1c = 7.7 05/28/20: HEMOGLOBIN A1C = 7.8 03-12-2020 glyco HGB A1C 7.9 high estimated avg. glucose 180 normal 09-23-2019 glyco HGB A1C 7.2 high estimated avg. glucose 160 normal MEDS: Metformin 750 BID, Trulicity 3mg Weekly Generalize d anxiety disorder [id number] F41.1 FLORY:08/27; UDS: 09/19/19: CSA: 09/23/19 Anxiety is stable on her current regimen.ME DS: Klonopin 1mg TID, Elavil 50mg qD, Zoloft 200 daily, Topamax 100 twice a day Migraine 05512587 G43.90 9 07/21/20:CRE ATININE = 0.70, BUN = 4, GFR = 92, GLUCOSE = 91TSH =1.47AST = 19, ALP = 18, TOTAL BILIRUBIN = <0.2,LIPAS E/AMYLASE = normalHEMO GLOBIN = 13.7, HEMATOCRIT = 42.4, WBC = 8.0, PLATELETS = 234B12/FOL ATE = normal Neck pain 89391164 M54.2 Continuing to follow with Pain management . She is not wanting to go back to Neurology for now. She does not believe that she will be able to afford injections which is what they had recommende d. Essential hypertension 79604409 I10 03/12/20: CREATININE = 0.63, GFR = 95 HEMOGLOBIN = 13.4, HEMATOCRIT = 41.2, PLATELET 225, THE VBC = 8 point Neuropathy 594929724 G62 .9 Hypothyroidism 80880161 E03.9 03-06-2019 TSH 1.390 normal T4,free 0.73 low [id number] MADDIE FELICIANO MD [address] [address] 7 09/03/2020 10:18:09 09/03/2020 10:29:17 [id number] LEANNA RIVERA MD [address] [address] 7 09/10/2020 11:52:41 09/10/2020 12:05:23 [id number] LEANNA RIVERA MD [address] [address] 7 09/15/2020 09:09:57 09/15/2020 09:22:57 [id number] MADDIE FELICIANO MD [address] [address] 7 09/22/2020 10:37:36 09/22/2020 10:50:55 [id number] PADMA SESAY MD [address] [address] 7 10/01/2020 11:42:16 10/01/2020 11:50:00 [id number] TERESA ARANDA PA-C SAME DAY [address] [address] 10/08/2020 09:43:48 10/08/2020 13:10:25 Headache 78180548 R51.9 Encouraged hydration, dark/cool/ quiet room. Keep neurology appointmen t. Go to ER if symptoms persist/wo rsen. [id number] LARISA JOHNSON APRN [address] [address] 10/23/2020 11:25:52 10/23/2020 11:42:37 [id number] LEANNA RIVERA MD [address] [address] 7 10/27/2020 09:40:28 10/28/2020 16:14:23 Migraine 41828544 G43.909 07/21/20:CRE ATININE = 0.70, BUN = 4, GFR = 92, GLUCOSE = 91TSH =1.47AST = 19, ALP = 18, TOTAL BILIRUBIN = <0.2,LIPAS E/AMYLASE = normalHEMO GLOBIN = 13.7, HEMATOCRIT = 42.4, WBC = 8.0, PLATELETS = 234B12/FOL ATE = normal Uncontroll ed type 2 diabetes mellitus 583173853 E11.65 Started patient on Trulicity earlier in the spring. A1c trending down at last F/u.07/21/20 : Hemoglobin A1c = 7.7 05/28/20: HEMOGLOBIN A1C = 7.8 03-12-2020 glyco HGB A1C 7.9 high estimated avg. glucose 180 normal 09-23-2019 glyco HGB A1C 7.2 high estimated avg. glucose 160 normal MEDS: Metformin 750 BID, Trulicity 3mg Weekly Generalize d anxiety disorder 90301252 F41.1 FLORY:08/27; UDS: 09/19/19: CSA: 09/23/19 Anxiety is stable on her current regimen.ME DS: Klonopin 1mg TID, Elavil 50mg qD, Zoloft 200 daily, Topamax 100 twice a day Neck pain 47061629 M54.2 Continuing to follow with Pain management . She is not wanting to go back to Neurology for now. She does not believe that she will be able to afford injections which is what they had recommende d. Essential hypertension 60967322 I10 BP: 102/62, at goal 10/19/2020: BP at ED was 121/71 07/21/2020: CREATININE = 0.7, BUN = 4, GLUCOSE = 91, (CMP = essentiall y normal) CBC = normal (low MCV) 03/12/20: CREATININE = 0.63, GFR = 95 HEMOGLOBIN = 13.4, HEMATOCRIT = 41.2, PLATELET 225, THE VBC = 8 point Neuropathy 371947267 G62 .9 Hypothyroidism 43826009 E03.9 07/21/2020: TSH = 1.47 03-06-2019 TSH 1.390 normal T4,free 0.73 low Dyslipidemia 661654539 E 78.5 03/12/2020: TOTAL CHOLESTERO L = 147, LDL = 67, HDL = 37, TRIGLYCERI MARIEL = 217 06-26-2018 HDL cholestero l 38 low triglyceri mariel 133 normal cholestero l 128 normal LDL cholestero l 63 normal MEDS: Lipitor 80 Gastroesop hageal reflux disease without esophagitis 076883435 K21.9 Restless legs 29394895 G 25.81 Controlled with low-dose ropinirole . Continue current regimen. Chronic ob structive pulmonary disease 16023519 J44.9 breathing is at baseline and stable today. No change. Continue to encourage smoking cessation. MEDS: Trelegy, Albuterol [id number] GLENNY MAHAN MD [facility] [place] [address] 10/28/2020 12:17:11 10/30/2020 15:22:59 [id number] PADMA SESAY MD [address] [address] 11/02/2020 14:38:47 11/02/2020 14:51:32 [id number] PADMA SESAY MD [address] [address] 7 11/16/2020 09:58:21 11/16/2020 10:13:45 [id number] MADDIE FELICIANO MD [address] [address] 7 11/23/2020 11:21:00 11/23/2020 11:42:05 [id number] GRAEME TESHA GARRETT DO [address] [address] 01/07/2021 14:05:18 01/07/2021 14:16:31 [id number] MADDIE FELICIANO MD [address] [address] 01/19/2021 15:11:27 01/19/2021 15:21:32 [id number] LEANNA RIVERA MD [address] [address] 01/26/2021 09:48:43 01/27/2021 15:37:54 Restless legs 79354167 G25.81 Increasing ropinorolo le. Migraine 65377331 G43.90 9 07/21/20:CRE ATININE = 0.70, BUN = 4, GFR = 92, GLUCOSE = 91TSH =1.47AST = 19, ALP = 18, TOTAL BILIRUBIN = <0.2,LIPAS E/AMYLASE = normalHEMO GLOBIN = 13.7, HEMATOCRIT = 42.4, WBC = 8.0, PLATELETS = 234B12/FOL ATE = normal Uncontroll ed type 2 diabetes mellitus [id number] E11.65 Started patient on Trulicity earlier in the spring. A1c trending down at last F/u.07/21/20 : Hemoglobin A1c = 7.7 05/28/20: HEMOGLOBIN A1C = 7.8 03-12-2020 glyco HGB A1C 7.9 high estimated avg. glucose 180 normal 09-23-2019 glyco HGB A1C 7.2 high estimated avg. glucose 160 normal MEDS: Metformin 750 BID, Trulicity 3mg Weekly Generalize d anxiety disorder 72115666 F41.1 FLORY:08/27; UDS: 09/19/19: CSA: 09/23/19 Anxiety is stable on her current regimen.ME DS: Klonopin 1mg TID, Elavil 50mg qD, Zoloft 200 daily, Topamax 100 twice a day Neck pain 26623022 M54.2 Continuing to follow with Pain management . She is not wanting to go back to Neurology for now. She does not believe that she will be able to afford injections which is what they had recommende d. Essential hypertension 52501280 I10 BP: 102/62, at goal 10/19/2020: BP at ED was 121/71 07/21/2020: CREATININE = 0.7, BUN = 4, GLUCOSE = 91, (CMP = essentiall y normal) CBC = normal (low MCV) 03/12/20: CREATININE = 0.63, GFR = 95 HEMOGLOBIN = 13.4, HEMATOCRIT = 41.2, PLATELET 225, THE VBC = 8 point Neuropathy 529708596 G62 .9 Hypothyroidism 70247398 E03.9 07/21/2020: TSH = 1.47 03-06-2019 TSH 1.390 normal T4,free 0.73 low Dyslipidemia 696970873 E 78.5 03/12/2020: TOTAL CHOLESTERO L = 147, LDL = 67, HDL = 37, TRIGLYCERI MARIEL = 217 06-26-2018 HDL cholestero l 38 low triglyceri mariel 133 normal cholestero l 128 normal LDL cholestero l 63 normal MEDS: Lipitor 80 Gastroesop hageal reflux disease without esophagitis 758406617 K21.9 Chronic ob structive pulmonary disease 98509201 J44.9 breathing is at baseline and stable today. No change. Continue to encourage smoking cessation. MEDS: Trelegy, Albuterol [id number] MADDIE FELICIANO MD [address] [address] 02/02/2021 15:08:14 02/02/2021 15:20:24 [id number] PADMA SESAY MD [address] [address] 02/10/2021 09:53:26 02/10/2021 10:41:21 [id number] PADMA SESAY MD [address] [address] 02/22/2021 11:32:24 02/22/2021 11:44:01 [id number] LEANNA RIVERA MD [address] [address] 03/30/2021 08:09:42 03/31/2021 09:26:29 Type 2 diabetes mellitus without complication 853017807 E11.9 Not at goal and I will [...] normal GFR 110 normal GFR non-chrissie n mexican 95 normal [facility] hypothyroidism 32662253 E02 [id number] RAHUL PARISH PA-C SAME DAY [address] [address] 04/12/2021 08:58:47 04/16/2021 07:09:19 Fall R29.6 Injury of head 74334577 S09.90XA Dizziness 870234920 R42 [facility] risk of polypharmacy 565397871 Z91.89 [id number] FREDIS HERNANDEZ MD [address] [address] 04/20/2021 09:48:02 04/22/2021 16:20:56 Orthostatic hypotension 92912773 I95.1 [facility]clin[facility] hypothyroidism 27190305 E02 Dizziness 258336434 R42 Nausea and vomiting 1692 1999 R11.2 Migraine 50000678 G43.90 9 worseningt akes topomax, Emgalityfo llows with neurology Restless legs 27158894 G 25.81 was previously on requipstop ped due to sedation/d izziness Headache 05866642 R51.9 CT head normalstil l severe headache after recurrent fallsnause a and vomiting Dehydration 29445973 E86 .0 will return to clinic tomorrow for IVF [id number] FREDIS HERNANDEZ MD [address] [address] 04/21/2021 13:26:31 04/23/2021 08:57:18 Nausea 450246258 R11.0 Nausea and vomiting 1693 1999 R11.2 improved [id number] LEANNA RIVERA MD [address] [address] 05/10/2021 09:31:01 05/10/2021 09:43:53 [id number] GLENNY MAHAN MD [facility] [place] [address] 05/11/2021 15:24:10 05/12/2021 15:50:25 [id number] FREDIS HERNANDEZ MD [address] [address] 7 05/18/2021 12:45:30 05/18/2021 13:30:45 [id number] LEANNA RIVERA MD [address] [address] 7 06/10/2021 12:43:10 06/14/2021 16:58:28 Type 2 diabetes mellitus without complication 024331569 E11.9 With regards to her diabetes, my [...] normal GFR 110 normal GFR non-chrissie n mexican 95 normal [facility]clin[facility] hypothyroidism 76735304 E02 Generalize d anxiety disorder 35481880 F41.1 FLORY:08/27; UDS: 09/19/19: CSA: 09/23/19 Anxiety is stable on her current regimen.PA DS: Klonopin 1mg TID, Elavil 50mg qD, Zoloft 200 daily, Topamax 100 twice a day Essential hypertension 21836320 I10 BP: 100/60, low, 10/19/2020: BP at ED was 121/71 07/21/2020: CREATININE = 0.7, BUN = 4, GLUCOSE = 91, (CMP = essentiall y normal) CBC = normal (low MCV) 03/12/20: CREATININE = 0.63, GFR = 95 HEMOGLOBIN = 13.4, HEMATOCRIT = 41.2, PLATELET 225, THE VBC = 8 point Chronic ob structive pulmonary disease 26629665 J44.9 breathing is at baseline and stable today. No change. Continue to encourage smoking cessation. MEDS: Trelegy, Albuterol [id number] LEANNA RIVERA MD [address] [address] 05/28/2021 11:51:05 06/01/2021 11:17:50 [id number] PADMA SESAY MD [address] [address] 7 06/28/2021 10:14:19 06/28/2021 10:25:15 [id number] LEANNA RIVERA MD [address] [address] 07/07/2021 08:55:28 07/14/2021 15:08:27 Essential hypertension 87794710 I10 BP: 100/60, low, 10/19/2020: BP at ED was 121/71 07/21/2020: CREATININE = 0.7, BUN = 4, GLUCOSE = 91, (CMP = essentiall y normal) CBC = normal (low MCV) 03/12/20: CREATININE = 0.63, GFR = 95 HEMOGLOBIN = 13.4, HEMATOCRIT = 41.2, PLATELET 225, THE VBC = 8 point Chronic ob structive pulmonary disease 11946445 J44.9 breathing is at baseline and stable today. No change. Continue to encourage smoking cessation. MEDS: Trelegy, Albuterol Generalize d anxiety disorder 47120496 F41.1 FLORY:08/27; UDS: 09/19/19: CSA: 09/23/19 Anxiety is stable on her current regimen.ME DS: Klonopin 1mg TID, Elavil 50mg qD, Zoloft 200 daily, Topamax 100 twice a day Spasm of back muscles 20 5917954 M62.830 Discussed the etiology and expected course of back pain due to muscle spasms. Discussed initial conservati ve care with gentle stretching /ROM exercises. Discussed the appropriat e use of NSAIDs/George roids as ordered. Discussed signs and symptoms of worsening or more serious conditions that would warrant reassessme nt in clinic or ED. Migraine 14898027 G43.90 9 07/21/20:CRE ATININE = 0.70, BUN = 4, GFR = 92, GLUCOSE = 91TSH =1.47AST = 19, ALP = 18, TOTAL BILIRUBIN = <0.2,LIPAS E/AMYLASE = normalHEMO GLOBIN = 13.7, HEMATOCRIT = 42.4, WBC = 8.0, PLATELETS = 234B12/FOL ATE = normal [id number] LEANNA RIVERA MD [address] [address] 07/13/2021 10:02:29 07/13/2021 10:15:04 [id number] LEANNA RIVERA MD [address] [address] 07/26/2021 13:38:30 07/30/2021 13:05:59 Generalized anxiety disorder 21612019 F41.1 FLORY:08/27; UDS: 09/19/19: CSA: 09/23/19 Anxiety is stable on her current regimen.ME DS: Klonopin 1mg TID, Elavil 50mg qD, Zoloft 200 daily, Topamax 100 twice a day Type 2 olga betes mellitus without complication 931058231 E11.9 She describes that since the past [...] 1: A1C = 7.4 Migraine with aura 31606 06 G43.109 Essential hypertension 57180474 I10 BP: 100/60, low, 10/19/2020: BP at ED was 121/71 07/21/2020: CREATININE = 0.7, BUN = 4, GLUCOSE = 91, (CMP = essentiall y normal) CBC = normal (low MCV) 03/12/20: CREATININE = 0.63, GFR = 95 HEMOGLOBIN = 13.4, HEMATOCRIT = 41.2, PLATELET 225, THE VBC = 8 point Chronic ob structive pulmonary disease 63349361 J44.9 breathing is at baseline and stable today. No change. Continue to encourage smoking cessation. MEDS: Trelegy, Albuterol Spasm of back muscles 20 1254647 M62.830 Discussed the etiology and expected course of back pain due to muscle spasms. Discussed initial conservati ve care with gentle stretching /ROM exercises. Discussed the appropriat e use of NSAIDs/George roids as ordered. Discussed signs and symptoms of worsening or more serious conditions that would warrant reassessme nt in clinic or ED. Migraine 68680281 G43.90 9 07/21/20:CRE ATININE = 0.70, BUN = 4, GFR = 92, GLUCOSE = 91TSH =1.47AST = 19, ALP = 18, TOTAL BILIRUBIN = <0.2,LIPAS E/AMYLASE = normalHEMO GLOBIN = 13.7, HEMATOCRIT = 42.4, WBC = 8.0, PLATELETS = 234B12/FOL ATE = normal [id number] MADDIE FELICIANO MD [address] [address] 08/05/2021 13:48:15 08/05/2021 14:37:48 [id number] FREDIS HERNANDEZ MD [address] [address] 08/19/2021 09:12:01 08/19/2021 10:28:17 [id number] LEANNA RIVERA MD [address] [address] 7 09/02/2021 09:18:45 09/02/2021 09:48:13 [id number] LEANNA RIVERA MD [address] [place] [address] 09/06/2021 09:20:07 09/08/2021 14:19:28 Generalized anxiety disorder 84049678 F41.1 FLORY:08/27; UDS: 09/19/19: CSA: 09/23/19 Anxiety is stable on her current regimen.ME DS: Klonopin 1mg TID, Elavil 50mg qD, Zoloft 200 daily, Topamax 100 twice a day Type 2 olga betes mellitus without complication 252221344 E11.9 06/10/2021: A1C = 6.001-15-2 020 1: A1C = 7.4 Migraine with aura 94584 06 G43.109 Essential hypertension 91617879 I10 BP:06/11/19 22: CREATININE = 0.61, GFR [...] 8 point Chronic ob structive pulmonary disease 30696355 J44.9 breathing is at baseline and stable today. No change. Continue to encourage smoking cessation. MEDS: Trelegy, Albuterol Spasm of back muscles 20 4652349 M62.830 Discussed the etiology and expected course of back pain due to muscle spasms. Discussed initial conservati ve care with gentle stretching /ROM exercises. Discussed the appropriat e use of NSAIDs/George roids as ordered. Discussed signs and symptoms of worsening or more serious conditions that would warrant reassessme nt in clinic or ED. Migraine 78923868 G43.90 9 Screening for malignant neoplasm of colon 469788827 Z12.11 COLONOSCOP Y: 04/06/2017 ; 1 Plyp; 5 Yr Rpt DUE: 04/07/22 [id number] NIRMAL DODGE APRN [address] [place] [address] 09/15/2021 08:51:17 09/15/2021 09:11:34 [id number] LEANNA RIVERA MD [address] [place] [address] 10/20/2021 10:42:29 10/22/2021 08:49:25 Generalized anxiety disorder 00470761 F41.1 FLORY:Anx humble is stable on her current regimen.ME DS: Klonopin 1mg TID, Elavil 50mg qD, Zoloft 200 daily, Topamax 100 twice a day Type 2 olga betes mellitus without complication 693581630 E11.9 09/06/2021: A1C = 6.44/ 22: A1C = 6.001-15-2 020 1: A1C = 7.4 Migraine with aura 49660 06 G43.109 Essential hypertension 89468974 I10 BP:111/76 09/06/2021: CREATININE = 0.71, GFR [...] 8 point Chronic ob structive pulmonary disease 40961591 J44.9 breathing is at baseline and stable today. No change. Continue to encourage smoking cessation. MEDS: Trelegy, Albuterol Spasm of back muscles 20 5451299 M62.830 Discussed the etiology and expected course of back pain due to muscle spasms. Discussed initial conservati ve care with gentle stretching /ROM exercises. Discussed the appropriat e use of NSAIDs/George roids as ordered. Discussed signs and symptoms of worsening or more serious conditions that would warrant reassessme nt in clinic or ED. Migraine 61940436 G43.90 9 Screening for malignant neoplasm of colon 204291896 Z12.11 COLONOSCOP Y: 04/06/2017 ; 1 Plyp; 5 Yr Rpt DUE: 04/07/22 Dysuria-fr equency syndrome 7558201 R30.0 Ulcer of s kin or mucosa 707406174 L98.499 Nicotine dependence 5629 4008 F17.200 Discussed [...] has a significan t psychiatri c history. [id number] FREDIS HERNANDEZ MD [address] [address] 11/02/2021 10:52:38 11/02/2021 11:23:55 [id number] GLENNY MAHAN MD [facility] [address] [facility] [place] [address] 11/04/2021 10:03:50 11/19/2021 16:25:18 [id number] LEANNA RIVERA MD [address] [address] 11/09/2021 11:33:25 11/09/2021 12:02:21 [id number] LEANNA RIVERA MD [address] [address] 04/18/2022 11:04:32 04/18/2022 11:25:22 [id number] LEANNA RIVERA MD [address] [address] 7 04/26/2022 12:18:16 04/26/2022 15:49:27 Generalized anxiety disorder 09631612 F41.1 FLORY:04/26 appropriat e per her recent history.An xiety is stable on her current regimen.ME DS: Klonopin 1mg BID, Elavil 50mg qD, Zoloft 200 daily, Topamax 100 twice a day Type 2 olga betes mellitus without complication 559357745 E11.9 04/26/2022: A1c = 6.87/ 22: A1C = 6.44/ 22: A1C = 6.001-15-2 020 1: A1C = 7.4 Essential hypertension 70332816 I10 BP:115/80 09/06/2021: CREATININE = 0.71, GFR [...] 8 point Chronic ob structive pulmonary disease 18779961 J44.9 breathing is at baseline and stable today. No change. Continue to encourage smoking cessation. MEDS: Trelegy, Albuterol Spasm of back muscles 20 3615008 M62.830 Discussed the etiology and expected course of back pain due to muscle spasms. Discussed initial conservati ve care with gentle stretching /ROM exercises. Discussed the appropriat e use of NSAIDs/George roids as ordered. Discussed signs and symptoms of worsening or more serious conditions that would warrant reassessme nt in clinic or ED. Migraine 29675567 G43.90 9 Screening for malignant neoplasm of colon 039374339 Z12.11 COLONOSCOP Y: 04/06/2017 ; 1 Plyp; [...] history. Mixed anxi ety and depressive disorder 573952533 F41.8 Restless legs 33637099 G 25.81 De-escalat ing requip [id number] MD [facility] [address] [place] [address] 05/25/2022 10:51:52 05/25/2022 11:58:00 Vaginal vault prolapse 065153081 N81.89 [id number] SHANE PELAYO MD SURGERY SCHEDULE [address] [place] [address] 05/31/2022 10:11:19 05/31/2022 10:11:44 [id number] MD [facility] [address] [place] [address] 06/08/2022 13:11:56 06/08/2022 14:15:26 Prolapse of female genital organs 10969971 N81.9 We had a very long extensive [...] be using surgical mesh with this repair. [id number] FELIPE GRIFFITH PA-C [address] [address] 06/17/2022 10:29:54 06/17/2022 12:26:59 Adult health examination 390647233 Z00.00 Patient presented to office today for [...] d a diet that is low in sweets/jet k foods/proc essed & fast foods as [...] their quality of life. Screening mammography 24 909362 Z12.31 Will order. Nicotine dependence 5629 4008 Z87.891 Will order today based on patient's smoking history. Depression screening 171 917633 Z13.31 PHQ-2 done and score was 0. No further management needed. Total time spent: 3 minutes. Type 2 olga betes mellitus without complication 932837354 E11.9 Patient's last HgA1C in August 2021 was 6.4% and fasting glucose was 108. Patient takes trulicity for condition. Continue on current dose. Hypertensive disorder 38 880348 I10 Condition stable with no new or worsening symptoms. Patient's blood pressure in the officewas 110/62.Valerie johns is not on pharmacoth erapy for condition and manages with lifestyle measures. Familial c ombined hyperlipidemia 929353302 E78.49 Last lipid panel in 10/27/2020 showed HDL low at 34 and triglyceri mariel high at 245. Patient is on atorvastat in for condition. Continue on current dose. Recommend a f/u lipid panel during next appointmen t. Generalize d anxiety disorder 56227913 F41.1 YEHUDA-7 todaywas 4.Conditio n stable with no new or worsening symptoms. Patient takes clonazepam for condition. Continue on current dose. Chronic ob structive pulmonary disease 12919272 J44.9 Condition stable with no new or worsening symptoms. Patient takes trelegy and albuterol for condition. Continue on current dose. Tobacco Days of Wonder e cessation education 195212339 Z71.6 Patient reports she is currently trying [...] Total time: 5 minutes. Environmental allergy 42 1445989 T78.49XD Patient sees Dr. Mahan at [facility]. However, she does her shots here at [facility]. She would like to receive her allergy shot today. Idiopathic osteoarthritis 234335538 M19.91 Patient reports worsening arthritic pain in her neck and back recently. She reports that she would like a toradol shot to ease the pain and that it has worked well in the past. Patient's kidney function is fine today so will administer in office. 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 She will follow-up with me in 6 weeks [id number] FREDIS HERNANDEZ MD [address] [address] 08/18/2022 10:00:43 08/18/2022 11:34:23 Generalized anxiety disorder 86149425 F41.1 takes sertraline , clonazepam as neededstab lecontinue medication Dyslipidemia 074440249 E 78.5 takes atorvastat inLDL controlled 1contin ue medication Type 2 olga betes mellitus without complication 815476667 E11.9 A1c 6.1on Trulicity 0.75mgcont inue medication Pain in left foot 830951 7903 81524 M79.672 likely tendon injuryno fracture on XRrecommen d Aleahll send hydrocodon e for acute pain [id number] CHUNG SHUKLA PA-C [facility] [address] [place] [address] 08/25/2022 10:06:00 08/25/2022 11:20:09 Pain of left ankle joint [id number] M25.572 Reviewed xrays of left foot/ankle w/ patient today. Xrays reveal no acute bony abnormalit y/patholog ic process. Likely lateral ankle sprain as cause of pain today.Plan :Aircast given to patient today. WBAT. Frequent ice/elevat ion. hold therapy. If no better in 3 weeks we will have patient come back for recheck and obtain MRI. Sprain of lateral ligament of ankle joint [id number] S93.492A Reviewed xrays of left foot/ankle w/ patient today. Xrays reveal no acute bony abnormalit y/patholog ic process. Likely lateral ankle sprain as cause of pain today.Plan :Aircast given to patient today. WBAT. Frequent ice/elevat ion. hold therapy. If no better in 3 weeks we will have patient come back for recheck and obtain MRI. [id number] CHUNG SHUKLA PA-C [facility] [address] [facility] [place] [phone] 10/06/2022 12:06:38 10/06/2022 14:07:34 Closed fracture of distal end of right radius [id number] S52.514A I did independen tly interpret and [...] y. Pain of ri ght elbow joint [id number] M25.521 I did independen tly interpret and [...] with cast to call us immediatel y. [id number] DENA BILLINGS [facility] [address] [place] [phone] 10/06/2022 14:23:32 10/06/2022 14:34:57 [id number] LILIANA LUNDBERG MD [facility] CL[facility] [address] [place] [address] 10/20/2022 10:46:54 10/20/2022 11:49:43 Closed fracture of distal end of right radius [id number] S52.531A Right extra-dariana cular distal radius fracture (DOI: 09/18/2022) [id number] LUCIO YU JR, OTR/L, CHT PHYSICAL THERAPY / HAND THERAPY [facility] [address] [address] 10/20/2022 13:24:21 10/21/2022 04:06:23 Closed fracture of distal end of right radius [id number] S52.501D [id number] LEANNA RIVERA MD [address] [place] [address] 10/21/2022 09:54:17 10/25/2022 04:03:18 Mixed anxiety and depressive disorder [id number] F41.8 It is not ideal that the [...] want to change or adjust it. Hyperglycemia [id number] R 73.9 Peripheral arterial insufficiency [id number] 40523 I73.9 Patient is concerned about increased pain, cramping, and coolness in her feet, worse on her left. We are going to check ROSEMARY and Dulex and evaluate as indicated. Could consider referral for NCS if duplex is without flow restrictin g disease. Generalize d anxiety disorder 06938343 F41.1 takes sertraline , clonazepam as neededstab lecontinue medication Dyslipidemia [id number] E 78.5 Patient has a history of [...] and . Type 2 olga munguia mellitus 01640416 E11.51 Patient has a known history of diabtes and her A1c has been as high as 7.9 in the past. She has done very well on Trulicity that was started a couple of years ago. She has not been able to tolerate increasing the dose but her A1c has been well controlled on the lower. Essential hypertension 38012801 I10 BP:115/80 09/06/2021: CREATININE = 0.71, GFR [...] cture of distal end of right radius [id number] S52.531A Right extra-dariana cular distal radius fracture (DOI: 09/18/2022) Migraine 57794314 G43.90 9 Patient continues to follow regularly with [facility] for managment and monitoring of her longstandi ng migraine headaches. They are prescribin g her Topimate PO and Vypeti infusion every 3 months and the patient reports that these have been effective for her and she is tolerating them well. Taking TPM, Vyepti q 3 mo Chronic ob structive pulmonary disease 04812859 J44.9 breathing is at baseline and stable today. No change. Continue to encourage smoking cessation. MEDS: Trelegy, Albuterol [id number] BEAN FISCHER PA-C [facility] [address] [place] , [place] [address] 11/07/2022 10:21:23 11/07/2022 11:54:24 Closed fracture of distal end of right radius [id number] S52.501D Assessment : Follow-up of right distal radius fracture. Plan: Alignment seems stable on repeat x-rays today. Patient would like to go back into a cast, which I find reasonable , we will remain in this for another 3 weeks. Follow-up in 3 weeks for repeat x-rays on arrival out of cast and recheck. [id number] BEAN FISCHER PA-C [facility] [address] [place] [address] 12/01/2022 09:46:39 12/01/2022 11:32:45 Closed fracture of distal end of right radius [id number] S52.501G Assessment : Follow-up of right distal radius fracture. Plan: Dr. Martinez consulted on the case today. Agrees with a CT scan as next best step. She has an [employer] custom brace for this wrist that she can use in the meantime. Follow-up after the CT scan to discuss results with Dr. Martinez. 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 I suspect her N/T will improve as her swelling goes down. If her N/T is not improved in x1 month, she should return to the clinic. F/U PRN. 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 Radial sty loid tenosynovitis 84422716 M65.4 Right de Quervain's tenosynovi tis (CSI: [...] HEALTH CHOICES - FFS/TRADITION AL Cecile Marley [id number] Cecile G Gregg 03/03/2024 1 HUMANA (MEDICARE REPLACEMENT/A DVANTAGE - PPO) Cecile Tracy Gregg [id number] Cecile G Gregg 03/26/2023 1 HUMANA - GOLD PLUS (MEDICARE REPLACEMENT/A DVANTAGE - HMO) Cecile Tracy Gregg [id number] Cecile G Gregg 03/26/2023 1 AETNA (MEDICARE REPLACEMENT/A DVANTAGE - HMO) [id number] Cecile Tracy Gregg [id number] Cecile Tracy Gregg 03/03/2024 2 [place] - [place] HEALTH CHOICES - FFS/TRADITION AL Cecile G Gregg [id number] Cecile G Gregg 03/26/2023 1 HUMANA - GOLD PLUS (MEDICARE REPLACEMENT/A DVANTAGE - HMO) Cecile Tracy Gregg [id number] Cecile Tracy Gregg 03/26/2023 2 HUMANA (POS) Cecile Marley [id number] Cecile G Gregg 03/26/2023 1 AETNA (MEDICARE REPLACEMENT/A DVANTAGE - PPO) [id number] Cecile Tracy Gregg [id number] Cecile G Gregg 01/15/2020 1 HUMANA (PPO) [id number] Vikash Sandovaltt [id number] Cecile G Gregg 03/26/2023 1 [place]) Cecile Tracy Gregg [id number] Cecile Escobedo 03/26/2023 1 [place] (MEDICARE REPLACEMENT HMO) [id number] Cecile Escobedo [id number] Cecile Escobedo 03/26/2023 1 HUMANA - GOLD PLUS (MEDICARE REPLACEMENT/A DVANTAGE - HMO) Cecile Escobedo [id number] Cecile Escobedo Notes Date Note Type Note [...] now that she has moved back to [place]. She states that she is still in [...] horses a few weeks ago. Initially, at [facility], she was told it was a sprain. [...] moved back in with her ex- in [place]. She notes that life is going very well there and she is the happiest she can remember being for a long time. She notes that they have horses and they recently took a trip to [place] and they are getting along very well. However, she is not wanting to move her medical care to [place] at least for the time being. She [...] burning. She notes that she saw her senior manager creative services yesterday. That they told her she had too much acid in her urine and that she should use Desitin. She notes that the Desitin did not help. However, she had a little bit of leftover silvadene. This helped a lot. She would like a refill of the silvadene if she can. She notes that the senior manager creative services gave her Macrobid. She has been taking [...] diarrhea. 07/26/21Elizabeth notes that she went to [facility] in [place] where she was referred by Dr. Luevano. [...] get in with a headache specialist in [place]. She notes that they recommended massages and therapy. She is not sure if she is going back to see them. LEANNA RIVERA MD [address] [place] [address], [phone], [facility] 10/24/2022 21:32:43 11/07/2022 text/html HAND DOMINANCE: Right [...] no INJECTION: no BEAN FISCHER PA-C [address] [place], [address], [facility] 11/07/2022 15:04:34 12/01/2022 text/html HAND DOMINANCE: RightWHAT: [...] for her previously.PAIN: -RAY: LCMRI: No Disc BENA FISCHER PA-C [address] [place], [address], [facility] 12/01/2022 13:20:43 12/14/2022 text/html Patient comes in [...] been in therapy. 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 Escobedo is here for recheck of rt wrist. XOA. She says her hand has been going to sleep and tingling alot. She also says on day her wrist got twisted and pulled, since then she has had swelling and pain. LILIANA LUNDBERG MD [address] [place], [address], [facility] 02/16/2023 13:20:57 OBGyn Episode No OBEpisode recorded.
[2024-08-01 14:07] LABS: Microscopic, Urine URINE MICROSCOPIC (MICROSCOPIC)
[2024-08-01 15:23] LABS: Creatinine,Urine Random 127 mg/dL (Not Estab.); Microalbumin < 6.000 mg/L (0-16.7)
[2024-08-01 15:55] LABS: Appearance,Urine CLEAR (Clear); Bilirubin,Urine Negative (Negative); Blood, Urine Negative (Negative); Color,Urine YELLOW (Yellow); Glucose,Urine (UA) Negative (Negative); Ketones,Urine Negative (Negative); Leukocyte Esterase,Urine Negative (Negative); Nitrate,Urine Negative (Negative); Protein,Urine Negative (Negative); Specific Gravity, Urine 1.015 (1.005-1.030); Urobilinogen,Urine 0.2 EU/dl (0.2)
[2024-08-01 16:14] LABS: Bacteria,Urine Trace /lpf
== END 2024-08-01 23:59 | disposition home or self-care (01) ==
LOC: RAD 09:51
PROVIDERS: PCP Nurse Practitioner Family; Visit Provider Nurse Practitioner Family
DX: M51.370 Other intervertebral disc degeneration, lumbosacral region with discogenic back pain only (principal); M47.817 Spondylosis without myelopathy or radiculopathy, lumbosacral region; M48.07 Spinal stenosis, lumbosacral region; E11.9 Type 2 diabetes mellitus without complications
CPT/HCPCS: 72100; 81001; 82043; 82570; 87086

== ENCOUNTER 2024-08-06 12:50 | Outpatient (CLI) | payer MEDICARE, MEDICAID, SELFPAY ==
--- OUTSIDE RECORDS SUMMARY | 2023-12-28 06:15 | XMS_ITS ---
Author Organization [facility] Address [address] [place] [address] Care Team Providers Care Nuclear Criticality Safety Engineer Name Role Phone Enoc Crane Primary Care Provider ENOC Crane APRN Unavailable Unavailable REASON FOR VISIT 3 Month F/U Encounters Encounter Location Date Provider Diagnosis [facility] [address] [place], [place] [address] 12/28/2023 Enoc Crane Plan Of Treatment No Information Progress Notes * RAMIREZ, Alber:1955 (69 yo F)Acc No.[id number]:12/28/2023 Progress Notes Patient: Cecile HUSSEIN Provider: Monie Crane APRN :1955 A ge:68 Y S ex:Female Date:12/28/2023 Address:[address] [id number] Subjective: * Chief Complaints: * 1 . 3 Month F/U. * Medical History: Objective: * Vitals: Assessment: Plan: * Treatment: * * Electronic signature of Phan Crane APRN on 08/06/2024 at 12:54 PM EDT Sign off status: Pending * Provider: Monie Crane APRN Date: 02/26/2023 Generated for Printi ng/Faxing/eTransmitting on: 0 08/06/2024 12:54 PM EDT
--- OUTSIDE RECORDS SUMMARY | 2024-05-25 17:30 | XMS_ITS ---
Author Organization [facility] Address [address] [place] [address] Care Team Providers Care School Crossing Guard Name Role Phone Enoc Crane Primary Care Provider [phone] ENOC Crane APRN Unavailable Unavailable Migration, Provider Unavailable Unavailable Allergies Allergen (clinical drug ingredient) Drug/Non Drug Allergy documented on EMR Reaction Allergy Type Onset Date Status PERCODAN (uncoded) hallunications Allergy Active ZOFRAN (uncoded) stomach upset Allergy Active hydromorphone Dilaudid vomiting Drug Allergy Act florecita morphine Morphine vomiting Drug Allergy Active REASON FOR VISIT [facility] Conversion Encounter Medications Medication SIG (Take, [...] Active Encounters Encounter Location Date Provider Diagnosis [facility] [address] [facility] [address] [place] [address] 05/25/2024 Provider Migration Plan Of Treatment Medication [...] Notes * Rivas RAMIREZB:1955 (69 yo F)Acc No.[id number]:05/25/2024 Patient: Mallory HUSSEINa Provider: Pankaj thomson Migration :1955 A ge:69 Y S ex:Female Date:05/25/2024 Address:[place], [id number] Pcp:Enoc Crane Subjective: * Chief Complaints: * 1 . Multum To Medispan Conversion Encounter. * Medical History: * Medications: T aking Trelegy Ellipta 200 MCG-62.5 MCG-25 MCG/INH POWDER 1 PUFF(S) INHALED ONCE A DAY , Notes to Pharmacist: *Please review and pick correct strength-formulation from [employer] options. If intended option is not shown, [...] Electronic signature of Prov ider Migration on 08/06/2024 at 12:53 PM EDT Sign off status: Pending * Provider: Pankaj thomson Migration Date: 0 05/25/2024 Generated for Yumiko robison/Margarette/Jimboitting on: 0 08/06/2024 12:53 PM EDT
--- OUTSIDE RECORDS SUMMARY | 2024-08-06 12:53 | XMS_ITS | Encounter Summary ---
Author Organization [employer] Address [address] [place] [address] Care Team Providers Care Communications Scientist Name Role Phone Jayden Rowan MD Primary Care Provider [phone] Encounter Details Date Type Department Care Team (Late st Contact Info) Description 10/02/2020 Transcribed Document [facility] Family [place] [address] ProviderJason MD [address] [place] [address] Social History Tobacco Use Types Packs/Day [...] On: 10/02/2020 12:18 EDT by Tori Rolon gin pole operator Process Patient Disposition : Discharge Personal Belongings [...] - 10/02/2020 12:18 EDT Electronically signed by [facility], [facility] Conversion Forepart Rounder Cerner at 06/09/2022 3:29 PM CDT documented in this encounter Plan of Treatment Not on file documented as of this encounter Visit Diagnoses Not on filedocumented in this encounter Care Teams Communications Scientist Relationship Specialty Start Date End Date Jayden Rowan MD [address] [place] [phone] PCP - General General Internal Medicine 07/05/22 documented as of this encounter
--- OUTSIDE RECORDS SUMMARY | 2024-08-06 12:53 | XMS_ITS | Encounter Summary ---
Author Organization [employer] Address [address] [place] [address] Care Team Providers Care Starting Sheet Tank Operator Name Role Phone Leanna Rivera MD Primary Care Provider [phone] Encounter Details Date Type Department Care Team (Late st Contact Info) Description 11/03/2020 Transcribed Document [facility] [place] [place] Family [place] [facility] [place] [address] ProviderJason MD [address] [place] [address] Social History Tobacco Use Types Packs/Day [...] MD - 11/03/2020 12:03 PM CDT J [facility] [address] [place] [address] MAMADOU RAMIREZChino BANKS :1955 Visit [...] Within 2 to 3 days Where: [address] [address]- [facility] (1) Allergies HYDROmorphone Imitrex Maxalt [...] these instructions at home: Medicines ??? Take xxqa-wgo-adaivak and prescription medicines only as told by your health care provider. ??? Ask your health care provider if the medicine prescribed to you: ? Requires you to avoid driving or using heavy machinery. ? Can cause constipation. You may need to take these actions to prevent or treat constipation: ? Drink enough fluid to keep your urine pale yellow. ? Take wpst-xsi-icoubtt or prescription medicines. ? Eat foods that [...] provider. Document Revised: 05/31/2019 Document Reviewed: 03/21/2019 [employer] Patient Education ?? 2020 tidy. Emergency Awareness and Preventative Care STROKE is [...] Assistance with quitting is available by contacting 8-088-FUMG-NOW. This is a free resource providing counseling, [...] was given the opportunity to ask questions. Patient/Fire Pilot Name: Patient/Fire Pilot Signature: Relationship to Patient: Clinician/Hospital Fire Pilot Signature: Please Provide a Telephone Number Where You Can Be Reached: Is it Permissible To Leave a Message? Date: Electronically signed by [facility], [facility] Conversion National Sales Director Cerner at 06/09/2022 3:31 PM CDT documented in this encounter Plan of Treatment Not on file documented as of this encounter Visit Diagnoses Not on filedocumented in this encounter Care Teams Starting Sheet Tank Operator Relationship Specialty Start Date End Date Leanna Rivera MD [address] [place] [address] [place] [phone] PCP - General General Internal Medicine 07/05/22 documented as of this encounter
--- OUTSIDE RECORDS SUMMARY | 2024-08-06 12:53 | XMS_ITS | Encounter Summary ---
Author Organization [employer] Address [address] [place] [address] Care Team Providers Care Optical Instrument Repairer Name Role Phone Leanna Rivera MD Primary Care Provider [phone] Encounter Details Date Type Department Care Team (Late st Contact Info) Description 05/10/2021 Transcribed Document [facility] Radiology [address] [place] [address] Lisa Rivera MD One [facility] [place] [address] Social History Tobacco Use Types Packs/Day Years [...] blocks. Pt is considering establishing care with bridge painter but has not yet done so.. [...] EDT Height Source Stated Height Entry Format [place] Height/Length, TRINIDADIAN (ft) 5 ft Height/Length TRINIDADIAN 3 Inch CLINICALHEIGHT 160.02 cm [place] Body Weight 52.02 kg Weight Source, ED Standing scale Weight Entry Format [place] Weight Citizen [place] lb 140 lb CLINICALWEIGHT 63.64 kg Body [...] Triage: ED C-SSRS: ED Clinical Reconciliation: ED grommet man: fentaNYL: 100 mcg, IntraMuscular, 1-Time promethazine: 25 [...] with specialist Within 2 to 4 days electronic specialist; JOSHUA MCNEAL Within 2 to 4 days One option for bridge painter. Counseled: Patient, Regarding treatment plan. documented in this encounter Plan of Treatment Not on file documented as of this encounter Visit Diagnoses Not on filedocumented in this encounter Care Teams Optical Instrument Repairer Relationship Specialty Start Date End Date Leanna Rivera MD [address] [place] [phone] PCP - General General Internal Medicine 07/05/22 documented as of this encounter
--- OUTSIDE RECORDS SUMMARY | 2024-08-06 12:53 | XMS_ITS | Encounter Summary ---
Author Organization [employer] Address [address] [place] [address] Care Team Providers Care Medical Anthropologist Name Role Phone Jayden Rowan MD Primary Care Provider [phone] Encounter Details Date Type Department Care Team (Late st Contact Info) Description 08/24/2021 Transcribed Document [facility] Family Medicine [facility] [place] [address] ProviderJason MD [address] [place] [address] Social History Tobacco Use Types [...] on filedocumented in this encounter Care Teams Medical Anthropologist Relationship Specialty Start Date End Date Jayden Rowan MD [address] [place] [phone] PCP - General General Internal Medicine 07/05/22 documented as of this encounter
--- OUTSIDE RECORDS SUMMARY | 2024-08-06 12:53 | XMS_ITS | Encounter Summary ---
Author Organization [employer] Address [address] [place] [address] Care Team Providers Care Manager Internship Name Role Phone Jayden Rowan MD Primary Care Provider [phone] Encounter Details Date Type Department Care Team (Late st Contact Info) Description 11/03/2020 Transcribed Document [facility] Family Medicine [facility] [place] [address] ProviderJason MD [address] [place] [address] Social History Tobacco Use Types [...] Zendejas MD - 11/03/2020 10:54 AM CDT [place] Suicide Severity Rating Scale (C-SSRS) Entered On: 11/03/2020 11:16 EDT Performed On: 11/03/2020 11:14 EDT by BORIS METZ RN [place] Suicide Severity Rating Scale (C-SSRS) CSSRS Past [...] filedocumented in this encounter Care Teams Manager Internship Relationship Specialty Start Date End Date Jayden Rowan MD [address] [place] [phone] PCP - General General Internal Medicine 07/05/22 documented as of this encounter
--- OUTSIDE RECORDS SUMMARY | 2024-08-06 12:54 | XMS_ITS | Encounter Summary ---
Author Organization [employer] Address [address] [place] [address] Care Team Providers Care Doll Surgeon Name Role Phone Jayden Rowan MD Primary Care Provider [phone] Encounter Details Date Type Department Care Team (Late st Contact Info) Description 02/06/2020 Transcribed Document [facility] Family Medicine [address] [place] [address] ProviderJason MD [address] [place] [address] Social History Tobacco Use Types [...] - Jason ProviderMD - 02/06/2020 1:15 PM INTEGRITY SPECIALIST Bro[place] Violence Assessment Entered On: 02/06/2020 13:24 EST Performed On: 02/06/2020 13:20 EST by RACHAEL QUINTANA RN Broset Violence Assessment Broset Violence Checklist of Symptoms : None Broset Violence Symptoms Subtotal : 0 Broset Violence Symptoms Indicator : Low risk (0) Broset Interventions : Blue Bell precautions for safety used RACHAEL QUINTANA RN - 02/06/2020 13:20 EST Electronically signed by T[facility] Conversion Check Pilot Cerner at 06/09/2022 3:30 PM CDT documented in this encounter Plan of Treatment Not on file documented as of this encounter Visit Diagnoses Not on filedocumented in this encounter Care Teams Doll Surgeon Relationship Specialty Start Date End Date Jayden Rowan MD [address] [place] [phone] PCP - General General Internal Medicine 07/05/22 documented as of this encounter
--- OUTSIDE RECORDS SUMMARY | 2024-08-06 12:54 | XMS_ITS | Encounter Summary ---
Author Organization [employer] Address [address] [place] [address] Care Team Providers Care Model Maker Apprentice Name Role Phone Leanna Rivera MD Primary Care Provider [phone] Encounter Details Date Type Department Care Team (Late st Contact Info) Description 10/19/2021 Transcribed Document [facility] Family Medicine [facility] [place] [address] ProviderJason MD [address] [place] [id number] Social History Tobacco Use Types Packs/Day Years [...] EDT Height Source Stated Height Entry Format [place] Height/Length, SCOTTISH (ft) 5 ft Height/Length SCOTT[place] 3 Inch CLINICALHEIGHT 160.02 cm [place] Body Weight 52.02 kg Weight Source, ED Critical estimated dosing weight Weight Entry Format [place] Weight [place] lb 136 lb CLINICALWEIGHT 61.82 kg Body [...] Headache, Migraine Headache. Follow up with: LEANNA RIVREA Within 2 to 3 days; Follow up with primary care provider Within 2 to 3 days Arrange follow-up with your doctor. Return if worse.. Electronically signed by Tadeo [facility] Conversion Ward Clerk Cerner at 06/09/2022 3:26 PM CDT documented in this encounter Plan of Treatment Not on file documented as of this encounter Visit Diagnoses Not on filedocumented in this encounter Care Teams Model Maker Apprentice Relationship Specialty Start Date End Date Leanna Rivera MD [address] [place] [phone] PCP - General General Internal Medicine 07/05/22 documented as of this encounter
--- OUTSIDE RECORDS SUMMARY | 2024-08-06 12:54 | XMS_ITS | Encounter Summary ---
Author Organization [employer] Address [address] [place] [address] Care Team Providers Care Field Crew Chief Name Role Phone Leanna Rivera MD Primary Care Provider [phone] Encounter Details Date Type Department Care Team (Late st Contact Info) Description 09/05/2018 Transcribed Document [facility] Radiology [address] [place] [phone] Gali Garrett MD One [facility] Dept [place] [address] Social History Tobacco Use Types Packs/Day Years [...] EDT Height Source Stated Height Entry Format [place] Height/Length, ZAMBIAN (ft) 5 ft Height/Length ZAMBIAN 4 Inch CLINICALHEIGHT 162.56 cm [place] Body Weight 54.3 kg Weight Source, ED Critical estimated dosing weight Weight Entry Format [place] Weight [place] lb 162 lb CLINICALWEIGHT 73.64 kg Body [...] on filedocumented in this encounter Care Teams Field Crew Chief Relationship Specialty Start Date End Date Leanna Rivera MD [address] [place] [phone] PCP - General General Internal Medicine 07/05/22 documented as of this encounter
--- OUTSIDE RECORDS SUMMARY | 2024-08-06 12:54 | XMS_ITS | Encounter Summary ---
Author Organization [email or web address] Address [address] [place] [address] Care Team Providers Care State Patrol Officer Name Role Phone Jayden Rowan MD Primary Care Provider [phone] Encounter Details Date Type Department Care Team (Late st Contact Info) Description 10/19/2021 Transcribed Document [facility] Family Medicine [address] [place] [address] ProviderJason MD [address] [place] [address] Social History Tobacco Use Types [...] on filedocumented in this encounter Care Teams State Patrol Officer Relationship Specialty Start Date End Date Usery, Jayden R, MD [address] [place] [phone] PCP - General General Internal Medicine 07/05/22 documented as of this encounter
--- OUTSIDE RECORDS SUMMARY | 2024-08-06 12:54 | XMS_ITS | Encounter Summary ---
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 C/O shoulder and wrist pain Chung Wasserman, Director Emergency Services - 06/20/2018 5:28 EDT DCP GENERIC CODE Tracking Acuity : 4 - Non - Urgent Tracking Group : [facility] ED WeldChung Wilder, Director Emergency Services - 06/20/2018 5:28 [...] 06/20/2018 05:32:56 EDT) Problems(Active) Anxiety (SNOMED CT :68064918 ) Name of Problem: Anxiety ; Recorder: BOB PEARCE RN; Confirmation: Confirmed ; Classification: Medical ; Code: [id number] ; Contributor System: PowerChart ; Last Updated: 08/01/2013 19:25 EDT ; Life Cycle Date: 05/11/2013 ; Life Cycle Status: Active ; Vocabulary: SNOMED CT Appendectomy (SNOMED CT :352982681 ) Name of Problem: Appendectomy ; Recorder: BOB PEARCE RN; Confirmation: Confirmed ; Classification: Medical ; Code: [id number] ; Contributor System: PowerChart ; Last Updated: 08/06/2013 10:55 EDT ; Life Cycle Date: 05/11/2013 ; Life Cycle Status: Active ; Vocabulary: SNOMED CT Bladder (SNOMED CT :230469799 ) Name of Problem: Bladder ; Recorder: BOB PEARCE RN; Confirmation: Confirmed ; Classification: Medical ; Code: 266130406 ; Contributor System: PowerChart ; Last Updated: 08/08/2013 13:51 EDT ; Life Cycle Date: 05/11/2013 ; Life Cycle Status: Active ; Vocabulary: SNOMED CT ; Comments: 05/11/2013 16:28 - BOB PEARCE RN bladder sling Cholecystectomy (SNOMED CT :41007608 ) Name of Problem: Cholecystectomy ; Recorder: BOB PEARCE RN; Confirmation: Confirmed ; Classification: Medical ; Code: 16418587 ; Contributor System: PowerChart ; Last Updated: 08/06/2013 10:53 EDT ; Life Cycle Date: 05/11/2013 ; Life Cycle Status: Active ; Vocabulary: SNOMED CT COPD (chronic obstructive pulmonary disease) (SNOMED CT :75219310 ) Name of Problem: COPD (chronic obstructive pulmonary disease) ; Recorder: BONNIE FUCHS RN; Confirmation: Confirmed ; Classification: Medical ; Code: 41242660 ; Contributor System: LiveBuzzChart ; Last Updated: 06/30/2014 10:41 EDT ; Life Cycle Date: 06/30/2014 ; Life Cycle Status: Active ; Vocabulary: SNOMED CT Depression (SNOMED CT :254534307 ) Name of Problem: Depression ; Recorder: BOB PEARCE RN; Confirmation: Confirmed ; Classification: Medical ; Code: 500922760 ; Contributor System: PowerChart ; Last Updated: 08/01/2013 19:25 EDT ; Life Cycle Date: 05/11/2013 ; Life Cycle Status: Active ; Vocabulary: SNOMED CT Diabetes mellitus (SNOMED CT :039757853 ) Name of Problem: Diabetes mellitus ; Recorder: Arabella Pineda RN; Confirmation: Confirmed ; Classification: Patient Stated ; Code: 752011688 ; Contributor System: PowerChart ; Last Updated: 07/09/2017 2:14 EDT ; Life Cycle Date: 07/09/2017 ; Life Cycle Status: Active ; Vocabulary: SNOMED CT GERD (gastroesophageal reflux disease) (SNOMED CT :842549857 ) Name of Problem: GERD (gastroesophageal reflux disease) ; Recorder: BONNIE FUCHS RN; Confirmation: Confirmed ; Classification: Medical ; Code: 188999293 ; Contributor System: PowerChart ; Last Updated: 06/30/2014 10:41 EDT ; Life Cycle Date: 06/30/2014 ; Life Cycle Status: Active ; Vocabulary: SNOMED CT High cholesterol (SNOMED CT :[id number] ) Name of Problem: High cholesterol ; Recorder: BOB PEARCE RN; Confirmation: Confirmed ; Classification: Medical ; Code: [id number] ; Contributor System: [employer] ; Last Updated: 08/01/2013 19:25 EDT ; Life Cycle Date: 05/11/2013 ; Life Cycle Status: Active ; Vocabulary: SNOMED CT Hysterectomy (SNOMED CT :357363941 ) Name of Problem: Hysterectomy ; Recorder: BOB PEARCE RN; Confirmation: Confirmed ; Classification: Medical ; Code: [id number] ; Contributor System: [employer] ; Last Updated: 08/06/2013 10:54 EDT ; Life Cycle Date: 05/11/2013 ; Life Cycle Status: Active ; Vocabulary: SNOMED CT Migraine (SNOMED CT :20173985 ) Name of Problem: Migraine ; Recorder: BOB PEARCE RN; Confirmation: Confirmed ; Classification: Medical ; Code: 76744553 ; Contributor System: [employer] ; Last Updated: 08/01/2013 19:25 EDT ; Life Cycle Date: 05/11/2013 ; Life Cycle Status: Active ; Vocabulary: SNOMED CT Diagnoses(Active) Shoulder injury - Minor Date: 06/20/2018 ; Diagnosis Type: Reason For Visit ; Confirmation: Complaint of ; Clinical Dx: Shoulder injury - Minor ; Classification: Medical ; Clinical Service: Emergency medicine ; Code: PNED ; Probability: 0 ; Diagnosis Code: [id number] ED Height and Weight Height Source : Estimated Height Entry Format : [place] Height, Feet : 5 ft(Converted to: 152 cm, 60 Inch) Height, Inches : 6 Inch(Converted to: 0 ft 6 Inch, 15.24 cm) Clinical Height : 167.64 cm Weight Source, ED : Stated [place] Body Weight (IBW) : 58.88 kg Chung Wasserman, Director Emergency Services - 06/20/2018 5:28 EDT Estimated Weight Type of Weight Measurement Est : [place] Weight, est lb : 150 lb(Converted to: 68 kg) Weight, est oz : 0 oz Estimated Clinical Dosing Weight : 68.18 kg Chung Wasserman, Director Emergency Services - 06/20/2018 5:28 EDT Electronically signed by [facility], [facility] Conversion Rigging Engineer Cerner at 06/09/2022 3:27 PM CDT documented in this encounter Plan of Treatment Not on file documented as of this encounter Visit Diagnoses Not on filedocumented in this encounter Care Teams Waste Baler Relationship Specialty Start Date End Date Jayden Rowan MD [address] [place] [phone] PCP - General General Internal Medicine 07/05/22 documented as of this encounter
--- OUTSIDE RECORDS SUMMARY | 2024-08-06 12:54 | XMS_ITS | Encounter Summary ---
Author Organization [employer] Address [address] [place] [address] Care Team Providers Care Residential Glazier Name Role Phone Leanna Rivera MD Primary Care Provider [phone] Encounter Details Date Type Department Care Team (Late st Contact Info) Description 04/30/2019 Transcribed Document [facility] Family Medicine [facility] [place] [address] ProviderJason MD [address] [place] [address] Social History Tobacco Use Types Packs/Day [...] Zendejas MD - 04/30/2019 2:40 PM [address] [facility] [address] [place] [address] CECILE RAMIREZ DARREN :1955 Visit [...] When Within 2 to 3 days Where: [address] [place] [address] [address] [place] [address]- Business (1) Allergies HYDROmorphone Imitrex [...] these instructions at home: Medicines ??? Take snue-izu-hgpsaaf and prescription medicines only as told by your health care provider. ??? Do not drive or use heavy machinery while taking prescription pain medicine. ??? To prevent or treat constipation while you are taking prescription pain medicine, your health care provider may recommend that you: ? Drink enough fluid to keep your urine clear or pale yellow. ? Take zzdz-fnz-dextljy or prescription medicines. ? Eat foods that [...] 02/06/2006 Document Revised: 08/26/2016 Document Reviewed: 07/25/2016 [employer] Patient Education ?? 2019 [employer] Emergency Awareness and Preventative Care STROKE [...] was given the opportunity to ask questions. Patient/Fabric Finisher Name: Patient/Fabric Finisher Signature: Relationship to Patient: Clinician/Hospital Fabric Finisher Signature: Please Provide a Telephone Number Where You Can Be Reached: Is it Permissible To Leave a Message? Date: documented in this encounter Plan of Treatment Not on file documented as of this encounter Visit Diagnoses Not on filedocumented in this encounter Care Teams Residential Glazier Relationship Specialty Start Date End Date Leanna Rivera MD [address] [place] [phone] PCP - General General Internal Medicine 07/05/22 documented as of this encounter
--- OUTSIDE RECORDS SUMMARY | 2024-08-06 12:54 | XMS_ITS | Encounter Summary ---
Author Organization [employer] Address [address] [place] [address] Care Team Providers Care Bilingual School Psychologist Name Role Phone Jayden Rowan MD Primary Care Provider [phone] Encounter Details Date Type Department Care Team (Late st Contact Info) Description 02/06/2020 Transcribed Document [facility] [place] [facility] [place] [address] ProviderJason MD [address] [place] [address] Social History Tobacco Use Types Packs/Day [...] Jason Zendejas MD - 02/06/2020 1:15 PM NAT INSTRUCTOR [place] Suicide Severity Rating Scale (C-SSRS) Entered On: 02/06/2020 13:24 EST Performed On: 02/06/2020 13:20 EST by RACHAEL QUINTANA RN Stewart Suicide Severity Rating Scale (C-SSRS) CSSRS Past Month Wish to be : No CSSRS Past Month Suicidal Thoughts : No CSSRS Lifetime Suicide Behavior : No Suicide Severity Rating Score : 0 Suicide Severity Rating : No Additional Care Required at this time RACHAEL QUINTANA RN - 02/06/2020 13:20 EST Electronically signed by Tadeo [facility] Conversion Power Plant Inspector Cerner at 06/09/2022 3:31 PM CDT documented in this encounter Plan of Treatment Not on file documented as of this encounter Visit Diagnoses Not on filedocumented in this encounter Care Teams Bilingual School Psychologist Relationship Specialty Start Date End Date Jayden Rowan MD [address] [place] [phone] PCP - General General Internal Medicine 07/05/22 documented as of this encounter
--- OUTSIDE RECORDS SUMMARY | 2024-08-06 12:54 | XMS_ITS | Encounter Summary ---
Author Organization [employer] Address [address] [place] [address] Care Team Providers Care Envelope Stuffer Name Role Phone Jayden Rowan MD Primary Care Provider [phone] Encounter Details Date Type Department Care Team (Late st Contact Info) Description 02/06/2020 Transcribed Document [facility] [place] Family Medicine [facility] [place] [address] ProviderJason MD [address] [place] [address] Social History Tobacco Use Types Packs/Day [...] Jason Zendejas MD - 02/06/2020 2:02 PM INSPECTION ENGINEER ED Discharge Entered On: 02/06/2020 14:03 EST [...] 14:02 EST Electronically signed by Tadeo, [facility] Conversion Registered Account Administrator Cerner at 06/09/2022 3:27 PM CDT documented in this encounter Plan of Treatment Not on file documented as of this encounter Visit Diagnoses Not on filedocumented in this encounter Care Teams Envelope Stuffer Relationship Specialty Start Date End Date Jayden Rowan MD [address] [place] [phone] PCP - General General Internal Medicine 07/05/22 documented as of this encounter
--- OUTSIDE RECORDS SUMMARY | 2024-08-06 12:54 | XMS_ITS | Encounter Summary ---
Author Organization [employer] Address [address] [place] [address] Care Team Providers Care Hand Decorator Name Role Phone Jayden Rowan MD Primary Care Provider [phone] Encounter Details Date Type Department Care Team (Late st Contact Info) Description 03/04/2019 Transcribed Document [facility] [address] ProviderJason MD [address] [place] [address] Social History Tobacco Use Types Packs/Day Years Used Date Smoking Tobacco: Never Assessed Comments Unknown Sex and Gender Information Value Date Recorded Sex Assigned at Not on file Legal Sex Female 3:15 PM CDT Gender Identity Not on file Sexual Orientation Not on file documented as of this encounter Miscellaneous Notes * Cerner Conversion Note - Jason ProviderMD - 03/04/2019 1:08 AM TRAVEL SERVICES PROFESSIONAL ED Discharge Entered On: 03/04/2019 1:09 EST [...] 03/04/2019 1:08 EST Electronically signed by Tadeo [facility] Conversion Cook Dinner Cerner at 06/09/2022 3:29 PM CDT documented in this encounter Plan of Treatment Not on file documented as of this encounter Visit Diagnoses Not on filedocumented in this encounter Care Teams Hand Decorator Relationship Specialty Start Date End Date Jayden Rowan MD [address] [place] [phone] PCP - General General Internal Medicine 07/05/22 documented as of this encounter
--- OUTSIDE RECORDS SUMMARY | 2024-08-06 12:54 | XMS_ITS | Referral Summary ---
Author Organization [employer] Address [address] [place] [address] Care Team Providers Care Truck Driving Instructor Name Role Phone Jayden Rowan MD Primary Care Provider [phone] Allergies Active Allergy Reactions Criticality Noted Date [...] Jean Carlos rded Speak language other than [place]au[place] at home Not on file 03/10/2023 Want [...] A1C 6.7 % 07/05/2022 9:44 PM EDT [facility] Comment: Hemoglobin A1C levels are related to mean glucose during the preceding 2-3 months. Less than 7% demonstrates glycemic control in diabetic patients. Hemoglobin AlC % Suggested Diagnosis > or = 6.5 Diabetic 5.7 - 6.4 Prediabetic <5.7 Non-diabetic eAVG Glucose 145.59 mg/dL 07/05/2022 9:44 PM EDT [facility] Blood Venipuncture / Unknown 07/05/2022 12:26 PM EDT 07/05/2022 12:26 PM EDT us Fady Bates MD LAB BLOOD ORDERABLES Final Res ult [facility] [address] [phone] from Last 3 Months or Most Recently Relevant to Health Maintenance Insurance MEDICAID [place] [employer] MEDICA[employer] [place] Advance Directives For more information, please contact: [phone] Documents on File Type Date Recorded Patient Therapeutic Case Manager Expl anation Advance Directives and Ramesh g Will 07/07/2022 7:11 AM * Full Code (Latest Code Status on File) Date Activated Date Inactivated Comments 07/07/2022 4:06 PM 07/08/2022 4:14 PM Care Teams Truck Driving Instructor Relationship Specialty Start Date End Date Jayden Rowan MD [address] [place] [phone] PCP - General General Internal Medicine 07/05/22
--- OUTSIDE RECORDS SUMMARY | 2024-08-06 12:54 | XMS_ITS | Encounter Summary ---
Author Organization [employer] Address [address] [place] [address] Care Team Providers Care Industry Consultant Name Role Phone Jayden Rowan MD Primary Care Provider [phone] Encounter Details Date Type Department Care Team (Late st Contact Info) Description 04/08/2018 Transcribed Document [facility] [place] [address] ProviderJason MD [address] [place] [address] Social History Tobacco Use Types Packs/Day [...] Jason Zendejas MD - 04/08/2018 3:24 PM MILLINER HELPER Patient: CECILE RAMIREZ Age: 63 years Sex: [...] route. There was no reported trauma. Our Church Administrator has spoken with her [id number]-odm. The patient has reportedly been stating that [...] Fall Risk Assessment: ED Clinical Reconciliation: ED secondary special education teacher: Normal Saline Flush: 10 mL, IV Push, [...] % 29.4 % Lymph # 2.57 x10(3)/uL Randolph % 6.7 % Randolph # 0.59 K/uL Eos % 3.3 % Eos # 0.29 x10(3)/uL Baso % 0.6 % Baso # 0.05 x10(3)/uL Slide Review No IG# 0.04 x10(3)/uL IG% 0.50 % PT 10.0 Second(s) INR 0.9 Urine Type U CleanCatch Urine Color Yellow Urine Appearance Clear Urine Specific Sarles 1.007 Urine pH Dipstick 6.5 Urine Leukocyte [...] Radiology results: Radiology Results (Last 48 hours) [id number] -- 04/08/2018 15:14 CT Head WO (04/08/2018 [...] Stable. Counseled: Patient, Family. Electronically signed by [facility], [facility] Conversion Deckhand Engineer Cerner at 06/09/2022 3:28 PM CDT documented in this encounter Plan of Treatment Not on file documented as of this encounter Visit Diagnoses Not on filedocumented in this encounter Care Teams Industry Consultant Relationship Specialty Start Date End Date Jayden Rowan MD [address] [place] [phone] PCP - General General Internal Medicine 07/05/22 documented as of this encounter
--- OUTSIDE RECORDS SUMMARY | 2024-08-06 12:54 | XMS_ITS | Clinical Summary ---
Author Organization [employer] Address [address] [place] [address] Care Team Providers Care Director Industrial Name Role Phone Jayden Rowan MD Primary Care Provider [phone] Allergies Active Allergy Reactions Criticality Noted Date [...] Jean Carlos rded Speak language other than Welsh at home Not on file 03/10/2023 Want [...] A1C 6.7 % 07/05/2022 9:44 PM EDT [facility] Comment: Hemoglobin A1C levels are related to mean glucose during the preceding 2-3 months. Less than 7% demonstrates glycemic control in diabetic patients. Hemoglobin AlC % Suggested Diagnosis > or = 6.5 Diabetic 5.7 - 6.4 Prediabetic <5.7 Non-diabetic eAVG Glucose 145.59 mg/dL 07/05/2022 9:44 PM EDT [facility] Blood Venipuncture / Unknown 07/05/2022 12:26 PM EDT 07/05/2022 12:26 PM EDT us Fady Bates MD LAB BLOOD ORDERABLES Final Res ult [facility] [address] [phone] from Last 3 Months or Most Recently Relevant to Health Maintenance Insurance MEDICAID [place] [employer] MEDICA[employer] [place] Advance Directives For more information, please contact: [phone] Documents on File Type Date Recorded Patient Transport Operations Inspector Expl anation Advance Directives and Livin g Will 07/07/2022 7:11 AM * Full Code (Latest Code Status on File) Date Activated Date Inactivated Comments 07/07/2022 4:06 PM 07/08/2022 4:14 PM Care Teams Director Industrial Relationship Specialty Start Date End Date Jayden Rowan MD [address] [place] [phone] PCP - General General Internal Medicine 07/05/22
--- OUTSIDE RECORDS SUMMARY | 2024-08-06 12:54 | XMS_ITS | Patient Health Record ---
Author Organization [facility] Address [address] [place] [address] Care Team Providers Care Parking Attendant Name Role Phone Livier Crane Primary Care Provider [phone] LIVIER Crane APRN Unavailable Unavailable Manpreet Lemus Unavailable [phone] Migration, Provider Unavailable Unavailable Allergies Allergen (clinical drug ingredient) Drug/Non Drug Allergy documented on EMR Reaction Allergy Type Onset Date Status PERCODAN (uncoded) hallunications Allergy Active ZOFRAN (uncoded) stomach upset Allergy Active hydromorphone Dilaudid vomiting Drug Allergy Act florecita morphine Morphine vomiting Drug Allergy Active Results Component Value Reference Range Notes LIPID PANEL, STANDARD (7600) Reviewed date:09/22/2023 01:50:40 PM Interpretation: Performing Lab:CB, [facility] [id number] [facility] Rob Hu Notes/Report: NON-FASTING; NON-FASTING; NON-FASTING; NON-FASTING; [...] LDL-C. Warren BEYER et al. ALLAN. 2013;310(19): 1402-3299 (http://education.Gociety.Bolt.io/faq/JKG296) CHOL/HDLC RATIO 2.9 <5.0 (calc) NON HDL CHOLESTEROL 85 <130 mg/dL (calc) For patients with diabetes plus 1 major ASCVD risk factor, treating to a non-HDL-C goal of <100 mg/dL (LDL-C of <70 mg/dL) is considered a therapeutic option. COMPREHENSIVE METABOLIC PANE (55216) Reviewed date:09/22/2023 01:50:40 PM Interpretation: Performing Lab:CB, [facility] [address], Poached JobsTcwoLI[address] Rob uH Notes/Report: NON-FASTING; NON-FASTING; NON-FASTING; NON-FASTING; NON-FAST FASTING:YES [...] Reviewed date:09/22/2023 01:50:40 PM Interpretation: Performing Lab:CB, [facility] [address], Millennium EntertainmentPrjtBD[address] Rob Hu Notes/Report: NON-FASTING; NON-FASTING; NON-FASTING; NON-FASTING; NON-FAST FASTING:YES FASTING: YES WHITE BLOOD CELL COUNT 7.9 3.8-10.8 Thousand/ uL RED BLOOD CELL COUNT 4.95 3.80-5.10 Million/uL HEMOGLOBIN 12.3 11.7-15.5 g/dL HEMATOCRIT 39.5 35.0-45.0 % MCV 79.8 80.0-100.0 fL MCH 24.8 27.0-33.0 pg MCHC 31.1 32.0-36.0 g/dL RDW 14.4 11.0-15.0 % PLATELET COUNT 236 140-400 Thousand/uL MPV 10.1 7.5-12.5 fL ABSOLUTE NEUTROPHILS 5230 4998-1469 cells/uL ABSOLUTE LYMPHOCYTES 3821 111-8604 cells/uL ABSOLUTE MONOCYTES 545 200-950 cells/uL ABSOLUTE EOSINOPHILS 300 15-500 cells/uL ABSOLUTE BASOPHILS 40 0-200 cells/uL NEUTROPHILS 66.2 LYMPHOCYTES 22.6 MONOCYTES 6.9 EOSINOPHILS 3.8 BASOPHILS 0.5 HEMOGLOBIN A1c (496) Reviewed date:09/22/2023 01:50:40 PM Interpretation: Performing Lab:YOLANDA [facility], [facility] SystemZbgeOF[address] Rob Hu Notes/Report: NON-FASTING; NON-FASTING; NON-FASTING; NON-FASTING; [...] change in test platforms from the Espino Smart Grid Engineer to the Ramila fuentes c503 may have shifted HbA1c results compared to historical results. Based on laboratory validation testing conducted at [facility], the Ramila platform relative to the Espino [...] Lab:CB, [facility] [address], Allan CrainDbrgLV[address] Rob Hu Notes/Report: NON-FASTING; NON-FASTING; NON-FASTING; NON-FASTING; NON-FAST FASTING:YES FASTING: YES VITAMIN B12 276 400-7145 pg/mL Reason For Referral No Information Medications [...] review and pick correct strength-formulati on from LoiLo options. If intended option is not shown, [...] review and pick correct strength-formulati on from LoiLo options. If intended option is not shown, [...] Problem Status W/U Status Risk Notes Problem 363464280 Mixed hyperlipidemia (E78.2) Active confirmed Problem 052254348 Depression with anxiety (F41.8) Active confirmed Problem 934332053 COPD exacerbatio n (J44.1) Active confirmed Problem 81135676 RLS (restless le gs syndrome) (G25.81) Active confirmed Problem Type 2 diabetes mellitus (40559825) Type 2 diabetes mellitus (E11.9) Active confirmed Problem 221726253 Tobacco use disorder (F17.200) Active confirmed Problem 856702545 Migraine with status migrainosus, not intractable, unspecified migraine type (G43.901) Active confirmed Vital Signs Heart Rate 96 /min 09/21/2023 Temperature 97.8 degrees Fahrenheit 09/21/2023 Blood pressure diastolic 60 mm Hg 09/21/2023 Height 63 in 09/21/2023 Blood pressure systolic 112 mm Hg 09/21/2023 Weight 149.6 lbs 09/21/2023 BMI 26.5 kg/m2 09/21/2023 Encounters Encounter Location Date Provider Diagnosis [facility] [address] [place], [place] [address] 05/25/2024 Provider Migration [facility] [address] [place] [address] 08/21/2023 Manpreet Lemus COPD exacerbation J44.1 ; Wrist pain, right M25.531 ; Unspecified fall, initial encounter W19.XXXA and Unspecified place in unspecified non-institutional (private) residence as the place of occurrence of the external cause Y92.009 [facility] [address] [place] [address] 09/21/2023 Livier McNees Migraine with status migrainosus, not intractable, unspecified migraine type G43.901 ; Type 2 diabetes mellitus E11.9 ; B12 deficiency E53.8 ; Tremor R25.1 ; Depression with anxiety F41.8 ; Mixed hyperlipidemia E78.2 ; 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 ; Tobacco use disorder F17.200 and RLS (restless legs syndrome) G25.81 [facility] [address] [place] [address] 08/07/2023 Manpreet Besson Acute cystitis witho ut hematuria N30.00 [facility] [address] [place] [address] 08/23/2023 Livier McNees [facility] [address] [facility] [address] [place] [address] 08/23/2023 Manpreet Besson [facility] [address] [place] [address] 08/28/2023 Manpreet Besson Asymptomatic age-related postmenopausal state Z78.0 [facility] [address] [place] [address] 09/04/2023 Livier McNees [facility] [address] [facility] [address] [place] [address] 09/11/2023 Manpreet Besson Acute cystitis witho ut hematuria N30.00 [facility] [address] [place] [address] 09/22/2023 Livier McNees [facility] [address] [place] [address] 10/09/2023 Manpreet Besson [facility] [address] [facility] [address] [place] [address] 10/20/2023 Livier McNees Assessments Encounter Date Diagnosis [...] End Date [employer] D[employer] [address] [address] [place] [address] [id number] Cecile Escobedo Self - patient is the [...]
--- OUTSIDE RECORDS SUMMARY | 2024-08-06 12:54 | XMS_ITS | Encounter Summary ---
Author Organization [employer] [facility] Address [address] [place] [address] Care Team Providers Care Spring Bender Name Role Phone Leanna Rivera MD Primary Care Provider [phone] Encounter Details Date Type Department Care Team (Late st Contact Info) Description 05/23/2018 Transcribed Document [facility] Family Medicine [facility] [place] [address] ProviderJason MD [address] [place] [address] Social History Tobacco Use Types Packs/Day [...] Zendejas MD - 05/23/2018 6:05 PM CDT [address] [address] Patient Information Name: CECILE RAMIREZ Age: 63 Years Date of : 1955 Arrival Time: 05/23/2018 17:19:00 Diagnosis Migraine Primary Care Physician: LEANNA RIVERA MD-INT Provider Information Primary Provider: TONEY JORGENSEN MD Secondary Provider: CECILE RAMIREZ has been given the following list of patient education materials, prescriptions and follow-up instructions: Follow-up Instructions: With: Address: When: LEANNA RIVERA [address] [facility], [address] [place] [id number] Business (1) Within 2 to 3 days [...] these instructions at home: Medicines ??? Take deis-jli-ikatcdt and prescription medicines only as told by your health care provider. ??? Do notdrive or use heavy machinery while taking prescription pain medicine. ??? To prevent or treat constipation while you are taking prescription pain medicine, your health care provider may recommend that you: ? Drink enough fluid to keep your urine clear or pale yellow. ? Take lipb-zxv-zdujwwi or prescription medicines. ? Eat foods that [...] 02/06/2006 Document Revised: 08/26/2016 Document Reviewed: 07/25/2016 [employer] Interactive Patient Education ? 2017 [employer] Allergies: acetaminophen-HYDROcodone; Maxalt; Imitrex; Zofran; HYDROmorphone; [...] verify that CECILE RAMIREZ was seen at [facility] on ,05/23/2018 18:05:18. This [...] along the way. As a healthcare provider, [facility] recommends that you stop smoking. Assistance with quitting is available by contacting 3-274-YZYM-NOW. This is a free resource providing counseling, [...] Electronic Communications Privacy Act 18 U.S.C. ???Sections 9782-9910,?? and contain information intended for the specified [...] Be sure to sign up for the Viva la Vita patient portal, which gives you 12/09 access to your medical information ??? including these discharge instructions ??? using your computer, smartphone, or tablet. Just go to LinguaSys to get started. Questions? Call . Acknowledgment [...] on filedocumented in this encounter Care Teams Spring Bender Relationship Specialty Start Date End Date Leanna Rivera MD [address] [place], [place] [address] [address] PCP - General General Internal Medicine 07/05/22 documented as of this encounter
--- OUTSIDE RECORDS SUMMARY | 2024-08-06 12:55 | XMS_ITS | Encounter Summary ---
Author Organization [employer] [facility] Address [address] [place] [address] Care Team Providers Care Vac Press Operator Name Role Phone Leanna Rivera MD Primary Care Provider [phone] Encounter Details Date Type Department Care Team (Late st Contact Info) Description 10/02/2020 Transcribed Document [facility] [place] [facility] [place] [address] ProviderJason MD [address] [place] [address] Social History Tobacco Use Types Packs/Day [...] Zendejas MD - 10/02/2020 12:11 PM CDT [facility] [address] [place] [address] MAMADOU RAMIREZChino BANKS :1955 Visit [...] When Within 2 to 3 days Where: [address] [place] [address] [address] [place] [address] Business (1) Allergies HYDROmorphone Imitrex Maxalt Zofran [...] these instructions at home: Medicines ??? Take mntm-oqk-vkcithj and prescription medicines only as told by your health care provider. ??? Ask your health care provider if the medicine prescribed to you: ? Requires you to avoid driving or using heavy machinery. ? Can cause constipation. You may need to take these actions to prevent or treat constipation: ? Drink enough fluid to keep your urine pale yellow. ? Take yvtm-rqn-qgrqyrq or prescription medicines. ? Eat foods that [...] provider. Document Revised: 05/31/2019 Document Reviewed: 03/21/2019 [employer] Patient Education ?? 2020 [employer]. Emergency Awareness and Preventative Care STROKE is [...] Assistance with quitting is available by contacting 1-651-BFYU-NOW. This is a free resource providing counseling, [...] was given the opportunity to ask questions. Patient/Honey Extractor Name: Patient/Honey Extractor Signature: Relationship to Patient: Clinician/Hospital Honey Extractor Signature: Please Provide a Telephone Number Where You Can Be Reached: Is it Permissible To Leave a Message? Date: documented in this encounter Plan of Treatment Not on file documented as of this encounter Visit Diagnoses Not on filedocumented in this encounter Care Teams Vac Press Operator Relationship Specialty Start Date End Date Leanna Rivera MD [address] [place] [address] [place] [address] PCP - General General Internal Medicine 07/05/22 documented as of this encounter
--- OUTSIDE RECORDS SUMMARY | 2024-08-06 12:55 | XMS_ITS | Encounter Summary ---
Author Organization [employer] [facility] Address [address] [place] [address] Care Team Providers Care Door Core Assembler Name Role Phone Jayden Rowan MD Primary Care Provider [phone] Encounter Details Date Type Department Care Team (Late st Contact Info) Description 06/26/2020 Transcribed Document [facility] [place] [address] ProviderJason MD [address] [place] [address] Social History Tobacco Use Types Packs/Day [...] On: 06/26/2020 17:12 EDT by Tori Rolon farm facility manager Process Patient Disposition : Discharge Personal Belongings [...] - 06/26/2020 17:12 EDT Electronically signed by [facility] Conversion Lookback Coordinator Cerner at 06/09/2022 3:27 PM CDT documented in this encounter Plan of Treatment Not on file documented as of this encounter Visit Diagnoses Not on filedocumented in this encounter Care Teams Door Core Assembler Relationship Specialty Start Date End Date Jayden Rowan MD [address] [place] [phone] PCP - General General Internal Medicine 07/05/22 documented as of this encounter
--- OUTSIDE RECORDS SUMMARY | 2024-08-06 12:55 | XMS_ITS | Encounter Summary ---
Author Organization [employer] [facility] Address [address] [place] [address] Care Team Providers Care Operator Ground Based Air Defence Name Role Phone Jyaden Rowan MD Primary Care Provider [phone] Encounter Details Date Type Department Care Team (Late st Contact Info) Description 06/26/2020 Transcribed Document [facility] Family Medicine [facility] [place] [address] ProviderJason MD [address] [place] [address] Social History Tobacco Use Types [...] Zendejas MD - 06/26/2020 3:26 PM CDT [place] Suicide Severity Rating Scale (C-SSRS) Entered On: 06/26/2020 16:32 EDT Performed On: 06/26/2020 16:31 EDT by Tori Rolon RN [place] Suicide Severity Rating Scale (C-SSRS) CSSRS Past [...] on filedocumented in this encounter Care Teams Operator Ground Based Air Defence Relationship Specialty Start Date End Date Jayden Rowan MD [address] [place] [phone] PCP - General General Internal Medicine 07/05/22 documented as of this encounter
--- OUTSIDE RECORDS SUMMARY | 2024-08-06 12:55 | XMS_ITS | Encounter Summary ---
Author Organization [employer] [facility] Address [address] [place] [address] Care Team Providers Care Digital Developer Name Role Phone Jayden Rowan MD Primary Care Provider [phone] Encounter Details Date Type Department Care Team (Late st Contact Info) Description 08/11/2020 Transcribed Document [facility] [place] [facility] [place] [address] ProviderJason MD [address] [place] [address] Social History Tobacco Use Types Packs/Day [...] On: 08/11/2020 14:02 EDT by RACHAEL QUINTANA, crew member Process Patient Disposition : Discharge Personal Belongings [...] - 08/11/2020 14:13 EDT Electronically signed by [facility] Conversion Earring Maker Cerner at 06/09/2022 3:31 PM CDT documented in this encounter Plan of Treatment Not on file documented as of this encounter Visit Diagnoses Not on filedocumented in this encounter Care Teams Digital Developer Relationship Specialty Start Date End Date Jayden Rowan MD [address] [place] [phone] PCP - General General Internal Medicine 07/05/22 documented as of this encounter
--- OUTSIDE RECORDS SUMMARY | 2024-08-06 12:55 | XMS_ITS | Encounter Summary ---
Author Organization [email or web address] [facility] Address [address] [place] [address] Care Team Providers Care Senior Cobol Developer Name Role Phone Jayden Rowan MD Primary Care Provider [phone] Encounter Details Date Type Department Care Team (Late st Contact Info) Description 06/19/2019 Transcribed Document [place] Family Medicine [facility] [place] [address] ProviderJason MD [address] [place] [address] Social History Tobacco Use Types Packs/Day [...] On: 06/19/2019 21:03 EDT by Dottie Baltazar TANK WAGON OPERATOR Triage Across the Room Chief Complaint : c/o headache and vomiting x 4 days, hx of same Triage Date/Time : 06/19/2019 21:03 EDT Dottie Baltazar RN - 06/19/2019 21:03 EDT DCP GENERIC CODE Tracking Acuity : 3 - Urgent Tracking Group : [facility] ED Dottie Mistry RN - 06/19/2019 21:03 [...] 06/19/2019 21:08:56 EDT) Problems(Active) Anxiety (SNOMED CT :18525165 ) Name of Problem: Anxiety ; Recorder: BOB PEARCE RN; Confirmation: Confirmed ; Classification: Medical ; Code: 08287013 ; Contributor System: PowerChart ; Last Updated: 08/01/2013 19:25 EDT ; Life Cycle Date: 05/11/2013 ; Life Cycle Status: Active ; Vocabulary: SNOMED CT Appendectomy (SNOMED CT :452062768 ) Name of Problem: Appendectomy ; Recorder: BOB PEARCE RN; Confirmation: Confirmed ; Classification: Medical ; Code: 619637465 ; Contributor System: PowerChart ; Last Updated: 08/06/2013 10:55 EDT ; Life Cycle Date: 05/11/2013 ; Life Cycle Status: Active ; Vocabulary: SNOMED CT Bladder (SNOMED CT :903706957 ) Name of Problem: Bladder ; Recorder: BOB PEARCE RN; Confirmation: Confirmed ; Classification: Medical ; Code: 751089822 ; Contributor System: PowerChart ; Last Updated: 08/08/2013 13:51 EDT ; Life Cycle Date: 05/11/2013 ; Life Cycle Status: Active ; Vocabulary: SNOMED CT ; Comments: 05/11/2013 16:28 - BOB PEARCE RN bladder sling Cholecystectomy (SNOMED CT :36283855 ) Name of Problem: Cholecystectomy ; Recorder: BOB PEARCE RN; Confirmation: Confirmed ; Classification: Medical ; Code: 61755097 ; Contributor System: PeerformChart ; Last Updated: 08/06/2013 10:53 EDT ; Life Cycle Date: 05/11/2013 ; Life Cycle Status: Active ; Vocabulary: SNOMED CT COPD (chronic obstructive pulmonary disease) (SNOMED CT :14004547 ) Name of Problem: COPD (chronic obstructive pulmonary disease) ; Recorder: BONNIE FUCHS RN; Confirmation: Confirmed ; Classification: Medical ; Code: 17455256 ; Contributor System: PowerChart ; Last Updated: 06/30/2014 10:41 EDT ; Life Cycle Date: 06/30/2014 ; Life Cycle Status: Active ; Vocabulary: SNOMED CT Depression (SNOMED CT :811099881 ) Name of Problem: Depression ; Recorder: BOB PEARCE RN; Confirmation: Confirmed ; Classification: Medical ; Code: 410388070 ; Contributor System: PowerChart ; Last Updated: 08/01/2013 19:25 EDT ; Life Cycle Date: 05/11/2013 ; Life Cycle Status: Active ; Vocabulary: SNOMED CT Diabetes mellitus (SNOMED CT :203729393 ) Name of Problem: Diabetes mellitus ; Recorder: Arabella Pineda RN; Confirmation: Confirmed ; Classification: Patient Stated ; Code: 390459631 ; Contributor System: PeerformChart ; Last Updated: 07/09/2017 2:14 EDT ; Life Cycle Date: 07/09/2017 ; Life Cycle Status: Active ; Vocabulary: SNOMED CT GERD (gastroesophageal reflux disease) (SNOMED CT :013873348 ) Name of Problem: GERD (gastroesophageal reflux disease) ; Recorder: BONNIE FUCHS RN; Confirmation: Confirmed ; Classification: Medical ; Code: 331163054 ; Contributor System: PowerChart ; Last Updated: 06/30/2014 10:41 EDT ; Life Cycle Date: 06/30/2014 ; Life Cycle Status: Active ; Vocabulary: SNOMED CT High cholesterol (SNOMED CT :[id number] ) Name of Problem: High cholesterol ; Recorder: BOB PEARCE RN; Confirmation: Confirmed ; Classification: Medical ; Code: [id number] ; Contributor System: [employer] ; Last Updated: 08/01/2013 19:25 EDT ; Life Cycle Date: 05/11/2013 ; Life Cycle Status: Active ; Vocabulary: SNOMED CT Hysterectomy (SNOMED CT :613627172 ) Name of Problem: Hysterectomy ; Recorder: BOB EPARCE RN; Confirmation: Confirmed ; Classification: Medical ; Code: 426474491 ; Contributor System: PeerformChart ; Last Updated: 08/06/2013 10:54 EDT ; Life Cycle Date: 05/11/2013 ; Life Cycle Status: Active ; Vocabulary: SNOMED CT Migraine (SNOMED CT :48065604 ) Name of Problem: Migraine ; Recorder: BOB PEARCE RN; Confirmation: Confirmed ; Classification: Medical ; Code: 79524931 ; Contributor System: [employer] ; Last Updated: 08/01/2013 19:25 EDT ; Life Cycle Date: 05/11/2013 ; Life Cycle Status: Active ; Vocabulary: SNOMED CT Diagnoses(Active) Headache Date: 06/19/2019 ; Diagnosis Type: Reason For Visit ; Confirmation: Complaint of ; Clinical Dx: Headache ; Classification: Medical ; Clinical Service: Emergency medicine ; Code: PNED ; Probability: 0 ; Diagnosis Code: [id number] ED Height and Weight Height Source : Stated Height Entry Format : [place] Height, Feet : 5 ft(Converted to: 152 cm, 60 Inch) Height, Inches : 4 Inch(Converted to: 0 ft 4 Inch, 10.16 cm) Clinical Height : 162.56 cm Weight Source, ED : Critical estimated dosing weight Weight Entry Format : [place] Weight, Pounds : 172 lb Clinical Dosing Weight : 78.18 kg Body Surface Area (BSA) : 1.84 m2 Body Mass Index : 29.6 kg/m2 (HI) [place]ble Body Weight (IBW) : 54.3 kg Dottie [...] the text rendition version of the form. Electronically signed by Jolie Piedra Conversion Fleet Administrative Assistant Cerner at 06/09/2022 3:26 PM CDT documented in this encounter Plan of Treatment Not on file documented as of this encounter Visit Diagnoses Not on filedocumented in this encounter Care Teams Senior Cobol Developer Relationship Specialty Start Date End Date Jayden Rowan MD [address] [place] [phone] PCP - General General Internal Medicine 07/05/22 documented as of this encounter
--- OUTSIDE RECORDS SUMMARY | 2024-08-06 12:55 | XMS_ITS | Encounter Summary ---
Author Organization [employer] Address [address] [place] [address] Care Team Providers Care Horticulture Instructor Name Role Phone Jayden Rowan MD Primary Care Provider [phone] Encounter Details Date Type Department Care Team (Late st Contact Info) Description 06/10/2020 Transcribed Document [facility] [place] [facility] [place] [address] ProviderJason MD [address] [place] [address] Social History Tobacco Use Types [...] on filedocumented in this encounter Care Teams Horticulture Instructor Relationship Specialty Start Date End Date Jayden Rowan MD [address] [place] [phone] PCP - General General Internal Medicine 07/05/22 documented as of this encounter
--- OUTSIDE RECORDS SUMMARY | 2024-08-06 12:55 | XMS_ITS | Encounter Summary ---
Author Organization [employer] Address [address] [place] [address] Care Team Providers Care Field Naturalist Name Role Phone Jayden Rowan MD Primary Care Provider [phone] Encounter Details Date Type Department Care Team (Late st Contact Info) Description 06/19/2019 Transcribed Document [facility] [place] [facility] [place] [address] ProviderJason MD [address] [place] [address] Social History Tobacco Use Types Packs/Day [...] Zendejas MD - 06/19/2019 8:59 PM CDT [place] Suicide Severity Rating Scale (C-SSRS) Entered On: 06/19/2019 21:09 EDT Performed On: 06/19/2019 21:09 EDT by Dottie Baltazar RN [place] Suicide Severity Rating Scale (C-SSRS) CSSRS Past [...] filedocumented in this encounter Care Teams Field Naturalist Relationship Specialty Start Date End Date Jayden Rowan MD [address] [place] [phone] PCP - General General Internal Medicine 07/05/22 documented as of this encounter
--- OUTSIDE RECORDS SUMMARY | 2024-08-06 12:55 | XMS_ITS | Encounter Summary ---
Author Organization [employer] [facility] [employer] Address [address] [place] [address] Care Team Providers Care Groover And Striper Operator Name Role Phone Jayden Rowan MD Primary Care Provider [phone] Encounter Details Date Type Department Care Team (Late st Contact Info) Description 06/19/2019 Transcribed Document [facility] [place] Family Medicine [facility] [place] [address] ProviderJason MD [address] [place] [address] Social History Tobacco Use Types Packs/Day [...] 11:14 PM CDT Electronically signed by Tadeo [facility] Conversion Supervisor [employer] Cerner at 06/09/2022 3:29 PM CDT documented in this encounter Plan of Treatment Not on file documented as of this encounter Visit Diagnoses Not on filedocumented in this encounter Care Teams Groover And Striper Operator Relationship Specialty Start Date End Date Jayden Rowan MD [address] [place] [phone] PCP - General General Internal Medicine 07/05/22 documented as of this encounter
--- OUTSIDE RECORDS SUMMARY | 2024-08-06 12:55 | XMS_ITS | Encounter Summary ---
Author Organization [employer] Address [address] [facility] [place] [address] Care Team Providers Care Marine Animal Trainer Name Role Phone Jayden Rowan MD Primary Care Provider [phone] Encounter Details Date Type Department Care Team (Late st Contact Info) Description 08/11/2020 Transcribed Document [facility] [place] Family Medicine [facility] [place] [address] ProviderJason MD [address] [place] [address] Social History Tobacco Use Types [...] on filedocumented in this encounter Care Teams Marine Animal Trainer Relationship Specialty Start Date End Date Jayden Rowan MD [address] [place] [phone] PCP - General General Internal Medicine 07/05/22 documented as of this encounter
--- OUTSIDE RECORDS SUMMARY | 2024-08-06 12:55 | XMS_ITS | Encounter Summary ---
Author Organization [employer] Address [address] [place] [address] Care Team Providers Care Sanitary Plumber Name Role Phone Jayden Rowan MD Primary Care Provider [phone] Encounter Details Date Type Department Care Team (Late st Contact Info) Description 06/19/2019 Transcribed Document [facility] [place] [place] [facility] [place] [address] ProviderJason MD [address] [place] [address] Social History Tobacco Use Types Packs/Day [...] On: 06/19/2019 23:20 EDT by Mark Olmedo, Wastewater Treatment Operator Process Patient Disposition : Discharge Personal Belongings [...] on filedocumented in this encounter Care Teams Sanitary Plumber Relationship Specialty Start Date End Date Jayden Rowan MD [address] [place] [phone] PCP - General General Internal Medicine 07/05/22 documented as of this encounter
--- NOTE | 2024-08-06 13:00 | CA_ITS ---
FINAL REPORT TECHNIQUE: Bilateral lower extremity venous duplex was performed with augmentation and compression. CLINICAL HISTORY: RLE PAIN AND EDEMA,NKI,SMOKER FINDINGS: Proper flow is seen throughout the deep venous systems bilaterally. There is no evidence of deep venous thrombosis. IMPRESSION: No evidence of deep venous thrombosis. Reviewed, Interpreted and Dictated by Sy Brantley MD Transcribed by Estrella Helms Authenticated and . [facility]
--- NOTE | 2024-08-06 13:45 | US_ITS ---
FINAL REPORT CLINICAL HISTORY: CLAUDICATION RT,REST PAIN RT,SMOKER,DM,HLD FINDINGS: ANKLE-BRACHIAL PRESSURE INDICES Pressure indices are as follows: RIGHT LOWER EXTREMITY: Ankle-brachial pressure index: 1.25 Comments: Normal LEFT LOWER EXTREMITY: Ankle-brachial pressure index: 1.24 Comments: Normal IMPRESSION: No evidence of significant obstructive peripheral vascular disease of the lower extremities Reviewed, Interpreted and Dictated by Sy Brantley MD Transcribed by Estrella Helms Authenticated and [facility]
== END 2024-08-06 23:59 | disposition home or self-care (01) ==
LOC: RT 12:50
PROVIDERS: PCP Nurse Practitioner Family; Visit Provider Nurse Practitioner Family
DX: K21.9 Gastro-esophageal reflux disease without esophagitis (principal); G43.909 Migraine, unspecified, not intractable, without status migrainosus; G25.81 Restless legs syndrome; F41.9 Anxiety disorder, unspecified; F32.A Depression, unspecified; E78.5 Hyperlipidemia, unspecified; E11.9 Type 2 diabetes mellitus without complications; M79.661 Pain in right lower leg; I73.9 Peripheral vascular disease, unspecified; F17.200 Nicotine dependence, unspecified, uncomplicated
CPT/HCPCS: 93923; 93970

== ENCOUNTER 2024-08-09 10:25 | Outpatient (CLI) | payer MEDICARE, MEDICAID, SELFPAY ==
--- OUTSIDE RECORDS SUMMARY | 2023-12-28 06:15 | XMS_ITS ---
Author Organization [facility] Address [address] [place] [address] Care Team Providers Care Client Insights Consultant Name Role Phone Enoc Crane Primary Care Provider [phone] ENOC Crane APRN Unavailable Unavailable REASON FOR VISIT 3 Month F/U Encounters Encounter Location Date Provider Diagnosis [facility] [address] [place], [place] [address] 12/28/2023 Enoc Crane Plan Of Treatment No Information Progress Notes * RAMIREZ, Alber:1955 (69 yo F)Acc No.[id number]:12/28/2023 Progress Notes Patient: Cecile HUSSEIN Provider: Monie Crane APRN :1955 A ge:68 Y S ex:Female Date:12/28/2023 Address:[address] [id number] Subjective: * Chief Complaints: * 1 . 3 Month F/U. * Medical History: Objective: * Vitals: Assessment: Plan: * Treatment: * * Electronic signature of Phan Crane APRN on 08/09/2024 at 10:33 AM EDT Sign off status: Pending * Provider: Monie Crane APRN Date: 02/26/2023 Generated for Printi ng/Faxing/eTransmitting on: 0 08/09/2024 10:33 AM EDT
--- OUTSIDE RECORDS SUMMARY | 2024-05-25 17:30 | XMS_ITS ---
Author Organization [facility] Address [address] [place] [address] Care Team Providers Care Public Health Outreach Worker Name Role Phone Enoc Crane Primary Care Provider ENOC Crane APRN Unavailable Unavailable Migration, Provider Unavailable Unavailable Allergies Allergen (clinical drug ingredient) Drug/Non Drug Allergy documented on EMR Reaction Allergy Type Onset Date Status PERCODAN (uncoded) hallunications Allergy Active ZOFRAN (uncoded) stomach upset Allergy Active hydromorphone Dilaudid vomiting Drug Allergy Act florecita morphine Morphine vomiting Drug Allergy Active REASON FOR VISIT [facility] Conversion Encounter Medications Medication SIG (Take, Route, Frequency, Duration) Notes Start Date End Date Status Ipratropium-Albuter ol 0.5-2.5 (3) MG/3ML 3 mL by nebulizer 4 times a day for 90 days Active ALBUTEROL (EQV-PROVENTIL HFA) 90 MCG/INH 2 PUFF(S) INHALED EVERY 6 HOURS for 30 DAYS *Please review for potential replacement for e-prescription and drug interaction check* 08/21/2023 Active clonazePAM 1 MG 1 tab(s) orally twic e a day prn for anxiety for 30 days 10/09/2023 Active GLUCOMETER NA USE FOR BID FSBS TESTING NA TWICE DAILY for 30 DAYS *Please review for potential replacement for e-prescription and drug interaction check* 06/08/2023 Active rOPINIRole HCl 2 MG 1 tab(s) orally once a day and 1 as needed Active Trulicity 1.5 MG/0.5 ML 1.5MG SUBCUTANEOUSLY ONCE A WEEK for 28 DAYS *Please review and pick correct strength-formulati on from Medispan options. If intended option is not shown, discontinue and re-order from Quick Search* Active Atorvastatin Calcium 80 MG 1 tab(s) orally at bedtime for 90 days Active Trelegy Ellipta 200 MCG-62.5 MCG-25 MCG/INH 1 PUFF(S) INHALED ONCE A DAY *Please review and pick correct strength-formulati on from Medispan options. If intended option is not shown, discontinue and re-order from Quick Search* Active Sertraline HCl 100 MG 2 tabs orally once a day Active Promethazine HCl 25 MG 1 tab(s) orally every 8 hours prn for 7 days Active Encounters Encounter Location Date Provider Diagnosis [facility] [address] [facility] [address] [place] [address] 05/25/2024 Provider Migration Plan Of Treatment Medication Medication Name Sig Start Date Stop Date Notes clonazePAM 1 MG 1 tab(s) orally twic e a day prn for anxiety for 30 days 10/09/2023 Trulicity 1.5 MG/0.5 ML 1.5MG SUBCUTANEOUSLY ONCE A WEEK for 28 DAYS *Please review a nd pick correct strength-formulation from Medispan options. If intended option is not shown, discontinue and re-order from Quick Search* Atorvastatin Calcium 80 MG 1 tab(s) orally at bedtime for 90 days Promethazine HCl 25 MG 1 tab(s) orally every 8 hours prn for 7 days Progress Notes * Rivas RAMIREZB:1955 (69 yo F)Acc No.[id number]:05/25/2024 Patient: Mallory HUSSEINa Provider: Pankaj thomson Migration :1955 A ge:69 Y S ex:Female Date:05/25/2024 Address[place], [id number] Pcp:Enoc Crane Subjective: * Chief Complaints: * 1 . Multum To Medispan Conversion Encounter. * Medical History: * Medications: T aking Trelegy Ellipta 200 MCG-62.5 MCG-25 MCG/INH POWDER 1 PUFF(S) INHALED ONCE A DAY , Notes to Pharmacist: *Please review and pick correct strength-formulation from [employer] options. If intended option is not shown, [...] Electronic signature of Prov ider Migration on 08/09/2024 at 10:32 AM EDT Sign off status: Pending * Provider: Pankaj thomson Migration Date: 0 05/25/2024 Generated for Yumiko robison/Margarette/Jimboitting on: 0 08/09/2024 10:32 AM EDT
--- OUTSIDE RECORDS SUMMARY | 2024-08-09 10:32 | XMS_ITS | Encounter Summary ---
Author Organization [employer] Address [address] [place] [address] Care Team Providers Care Transit Mixer Driver Name Role Phone Jayden Rowan MD Primary Care Provider [phone] Encounter Details Date Type Department Care Team (Late st Contact Info) Description 10/02/2020 Transcribed Document [facility] [place] Family Medicine [facility] [place] [address] ProviderJason MD [address] [place] [address] Social History Tobacco Use Types Packs/Day [...] On: 10/02/2020 12:18 EDT by Tori Rolon safety equipment tester Process Patient Disposition : Discharge Personal Belongings [...] - 10/02/2020 12:18 EDT Electronically signed by [facility], [facility] Conversion Tie Knitter Helper Cerner at 06/09/2022 3:29 PM CDT documented in this encounter Plan of Treatment Not on file documented as of this encounter Visit Diagnoses Not on filedocumented in this encounter Care Teams Transit Mixer Driver Relationship Specialty Start Date End Date Jadyen Rowan MD [address] [place] [phone] PCP - General General Internal Medicine 07/05/22 documented as of this encounter
--- OUTSIDE RECORDS SUMMARY | 2024-08-09 10:32 | XMS_ITS | Encounter Summary ---
Author Organization [employer] Address [address] [place] [address] Care Team Providers Care Senior Technical Writer Name Role Phone Jayden Rowan MD Primary Care Provider [phone] Encounter Details Date Type Department Care Team (Late st Contact Info) Description 11/03/2020 Transcribed Document [facility] [place] [facility] [place] [address] ProviderJason MD [address] [place] [address] Social History Tobacco Use Types Packs/Day Years Used Date Smoking Tobacco: Never Assessed Comments Unknown Sex and Gender Information Value Date Recorded Sex Assigned at Not on file Legal Sex Female 3:15 PM CDT Gender Identity Not on file Sexual Orientation Not on file documented as of this encounter Miscellaneous Notes * Cerner Conversion Note - Jason ProviderMD - 11/03/2020 10:54 AM CDT [place] Suicide Severity Rating Scale (C-SSRS) Entered On: 11/03/2020 11:16 EDT Performed On: 11/03/2020 11:14 EDT by BORIS METZ RN [place] Suicide Severity Rating Scale (C-SSRS) CSSRS Past [...] filedocumented in this encounter Care Teams Senior Technical Writer Relationship Specialty Start Date End Date Jayden Rowan MD [address] [place] [phone] PCP - General General Internal Medicine 07/05/22 documented as of this encounter
--- OUTSIDE RECORDS SUMMARY | 2024-08-09 10:32 | XMS_ITS | Encounter Summary ---
Author Organization [employer] Address [address] [place] [address] Care Team Providers Care Campground Caretaker Name Role Phone Leanna Rivera MD Primary Care Provider [phone] Encounter Details Date Type Department Care Team (Late st Contact Info) Description 05/10/2021 Transcribed Document [facility] Radiology [address] [place] [address] Lisa Rivera MD [facility] [place] [address] Social History Tobacco Use Types Packs/Day Years [...] blocks. Pt is considering establishing care with body technician/painter but has not yet done so.. Review [...] EDT Height Source Stated Height Entry Format [place] Height/Length, BURMESE (ft) 5 ft Height/Length BURMESE 3 Inch CLINICALHEIGHT 160.02 cm [place] Body Weight 52.02 kg Weight Source, ED Standing scale Weight Entry Format [place] Weight Maltese lb 140 lb CLINICALWEIGHT 63.64 kg Body [...] Triage: ED C-SSRS: ED Clinical Reconciliation: ED computer lab para professional: fentaNYL: 100 mcg, IntraMuscular, 1-Time promethazine: 25 [...] with specialist Within 2 to 4 days orientation & mobility specialist; JOSHUA MCNEAL Within 2 to 4 days One option for body technician/painter. Counseled: Patient, Regarding treatment plan. documented in this encounter Plan of Treatment Not on file documented as of this encounter Visit Diagnoses Not on filedocumented in this encounter Care Teams Campground Caretaker Relationship Specialty Start Date End Date Leanna Rivera MD [address] [place] [phone] PCP - General General Internal Medicine 07/05/22 documented as of this encounter
--- OUTSIDE RECORDS SUMMARY | 2024-08-09 10:32 | XMS_ITS | Encounter Summary ---
Author Organization [employer] Address [address] [place] [address] Care Team Providers Care Cargo Service Agent Name Role Phone Leanna Rivera MD Primary Care Provider [phone] Encounter Details Date Type Department Care Team (Late st Contact Info) Description 11/03/2020 Transcribed Document [facility] [place] [facility] [place] [address] ProviderJason MD [address] [place] [address] Social History Tobacco Use Types Packs/Day [...] MD - 11/03/2020 12:03 PM CDT [facility] [address] [place] [address] MAMADOU RAMIREZChino BANKS :1955 Visit [...] Within 2 to 3 days Where: [address] [address]- [facility] (1) Allergies HYDROmorphone Imitrex Maxalt [...] these instructions at home: Medicines ??? Take kzoi-ula-qrrjwtc and prescription medicines only as told by your health care provider. ??? Ask your health care provider if the medicine prescribed to you: ? Requires you to avoid driving or using heavy machinery. ? Can cause constipation. You may need to take these actions to prevent or treat constipation: ? Drink enough fluid to keep your urine pale yellow. ? Take xgbu-gsp-iioelbx or prescription medicines. ? Eat foods that [...] provider. Document Revised: 05/31/2019 Document Reviewed: 03/21/2019 [employer] Patient Education ?? 2020 [employer]. Emergency Awareness and Preventative Care STROKE is [...] Assistance with quitting is available by contacting 5-966-AALI-NOW. This is a free resource providing counseling, [...] was given the opportunity to ask questions. Patient/Plumbing Assembler Name: Patient/Plumbing Assembler Signature: Relationship to Patient: Clinician/Hospital Plumbing Assembler Signature: Please Provide a Telephone Number Where You Can Be Reached: Is it Permissible To Leave a Message? Date: Electronically signed by [facility], [facility] Conversion Cut Roll Machine Operator Cerner at 06/09/2022 3:31 PM CDT documented in this encounter Plan of Treatment Not on file documented as of this encounter Visit Diagnoses Not on filedocumented in this encounter Care Teams Cargo Service Agent Relationship Specialty Start Date End Date Leanna Rivera MD [address] [place] [address] [place] [phone] PCP - General General Internal Medicine 07/05/22 documented as of this encounter
--- OUTSIDE RECORDS SUMMARY | 2024-08-09 10:33 | XMS_ITS | Encounter Summary ---
Author Organization [employer] Address [address] [place] [address] Care Team Providers Care Nurse Wound Care Name Role Phone Jayden Rowan MD Primary Care Provider [phone] Encounter Details Date Type Department Care Team (Late st Contact Info) Description 06/19/2019 Transcribed Document [facility] [place] Family [place] [facility] [address] ProviderJason MD [address] [place] [address] Social History Tobacco Use Types Packs/Day [...] On: 06/19/2019 23:20 EDT by Mark Olmedo, Vein Pumper Process Patient Disposition : Discharge Personal Belongings [...] EDT Electronically signed by Jolie Piedra Conversion Curator [employer] Cerner at 06/09/2022 3:27 PM CDT documented in this encounter Plan of Treatment Not on file documented as of this encounter Visit Diagnoses Not on filedocumented in this encounter Care Teams Nurse Wound Care Relationship Specialty Start Date End Date Jayden Rowan MD [address] [place] [phone] PCP - General General Internal Medicine 07/05/22 documented as of this encounter
--- OUTSIDE RECORDS SUMMARY | 2024-08-09 10:33 | XMS_ITS | Encounter Summary ---
Author Organization [employer] Address [address] [place] [address] Care Team Providers Care Oyster Unloader Name Role Phone Jayden Rowan MD Primary Care Provider [phone] Encounter Details Date Type Department Care Team (Late st Contact Info) Description 06/19/2019 Transcribed Document [facility] [place] Family Medicine [facility] [place] [address] ProviderJason MD [address] [place] [address] Social History Tobacco Use Types Packs/Day Years Used Date Smoking Tobacco: Never Assessed Comments Unknown Sex and Gender Information Value Date Recorded Sex Assigned at Not on file Legal Sex Female 3:15 PM CDT Gender Identity Not on file Sexual Orientation Not on file documented as of this encounter Miscellaneous Notes * Cerner Conversion Note - aJson Zendejas MD - 06/19/2019 8:59 PM CDT ED Triage Entered On: 06/19/2019 21:08 EDT Performed On: 06/19/2019 21:03 EDT by Dottie Baltazar PLAN COORDINATOR Triage Across the Room Chief Complaint : [...] 06/19/2019 21:08:56 EDT) Problems(Active) Anxiety (SNOMED CT :36750003 ) Name of Problem: Anxiety ; Recorder: BOB PEARCE RN; Confirmation: Confirmed ; Classification: Medical ; Code: [id number] ; Contributor System: PowerChart ; Last Updated: 08/01/2013 19:25 EDT ; Life Cycle Date: 05/11/2013 ; Life Cycle Status: Active ; Vocabulary: SNOMED CT Appendectomy (SNOMED CT :847167087 ) Name of Problem: Appendectomy ; Recorder: BOB PEARCE RN; Confirmation: Confirmed ; Classification: Medical ; Code: [id number] ; Contributor System: PowerChart ; Last Updated: 08/06/2013 10:55 EDT ; Life Cycle Date: 05/11/2013 ; Life Cycle Status: Active ; Vocabulary: SNOMED CT Bladder (SNOMED CT :291525348 ) Name of Problem: Bladder ; Recorder: BOB PEARCE RN; Confirmation: Confirmed ; Classification: Medical ; Code: [id number] ; Contributor System: PowerChart ; Last Updated: 08/08/2013 13:51 EDT ; Life Cycle Date: 05/11/2013 ; Life Cycle Status: Active ; Vocabulary: SNOMED CT ; Comments: 05/11/2013 16:28 - BOB PEARCE RN bladder sling Cholecystectomy (SNOMED CT :23740769 ) Name of Problem: Cholecystectomy ; Recorder: BOB PEARCE RN; Confirmation: Confirmed ; Classification: Medical ; Code: [id number] ; Contributor System: [employer]Chart ; Last Updated: 08/06/2013 10:53 EDT ; Life Cycle Date: 05/11/2013 ; Life Cycle Status: Active ; Vocabulary: SNOMED CT COPD (chronic obstructive pulmonary disease) (SNOMED CT :02045579 ) Name of Problem: COPD (chronic obstructive pulmonary disease) ; Recorder: BONNIE FUCHS RN; Confirmation: Confirmed ; Classification: Medical ; Code: [id number] ; Contributor System: PowerChart ; Last Updated: 06/30/2014 10:41 EDT ; Life Cycle Date: 06/30/2014 ; Life Cycle Status: Active ; Vocabulary: SNOMED CT Depression (SNOMED CT :073323932 ) Name of Problem: Depression ; Recorder: BOB PEARCE RN; Confirmation: Confirmed ; Classification: Medical ; Code: 869459395 ; Contributor System: PowerChart ; Last Updated: 08/01/2013 19:25 EDT ; Life Cycle Date: 05/11/2013 ; Life Cycle Status: Active ; Vocabulary: SNOMED CT Diabetes mellitus (SNOMED CT :256407076 ) Name of Problem: Diabetes mellitus ; Recorder: Arabella Pineda RN; Confirmation: Confirmed ; Classification: Patient Stated ; Code: 169607983 ; Contributor System: [employer]Chart ; Last Updated: 07/09/2017 2:14 EDT ; Life Cycle Date: 07/09/2017 ; Life Cycle Status: Active ; Vocabulary: SNOMED CT GERD (gastroesophageal reflux disease) (SNOMED CT :568243360 ) Name of Problem: GERD (gastroesophageal reflux disease) ; Recorder: BONNIE FUCHS RN; Confirmation: Confirmed ; Classification: Medical ; Code: [id number] ; Contributor System: PowerChart ; Last Updated: 06/30/2014 10:41 EDT ; Life Cycle Date: 06/30/2014 ; Life Cycle Status: Active ; Vocabulary: SNOMED CT High cholesterol (SNOMED CT :[id number] ) Name of Problem: High cholesterol ; Recorder: BOB PEARCE RN; Confirmation: Confirmed ; Classification: Medical ; Code: [id number] ; Contributor System: [employer] ; Last Updated: 08/01/2013 19:25 EDT ; Life Cycle Date: 05/11/2013 ; Life Cycle Status: Active ; Vocabulary: SNOMED CT Hysterectomy (SNOMED CT :383073071 ) Name of Problem: Hysterectomy ; Recorder: BOB PEARCE RN; Confirmation: Confirmed ; Classification: Medical ; Code: [id number] ; Contributor System: [employer]Chart ; Last Updated: 08/06/2013 10:54 EDT ; Life Cycle Date: 05/11/2013 ; Life Cycle Status: Active ; Vocabulary: SNOMED CT Migraine (SNOMED CT :28445526 ) Name of Problem: Migraine ; Recorder: BOB PEARCE RN; Confirmation: Confirmed ; Classification: Medical ; Code: 28868472 ; Contributor System: [employer] ; Last Updated: 08/01/2013 19:25 EDT ; Life Cycle Date: 05/11/2013 ; Life Cycle Status: Active ; Vocabulary: SNOMED CT Diagnoses(Active) Headache Date: 06/19/2019 ; Diagnosis Type: Reason For Visit ; Confirmation: Complaint of ; Clinical Dx: Headache ; Classification: Medical ; Clinical Service: Emergency medicine ; Code: PNED ; Probability: 0 ; Diagnosis Code: [id number] ED Height and Weight Height Source : Stated Height Entry Format : [place] Height, Feet : 5 ft(Converted to: 152 cm, 60 Inch) Height, Inches : 4 Inch(Converted to: 0 ft 4 Inch, 10.16 cm) Clinical Height : 162.56 cm Weight Source, ED : Critical estimated dosing weight Weight Entry Format : [place] Weight, Pounds : 172 lb Clinical Dosing Weight : 78.18 kg Body Surface Area (BSA) : 1.84 m2 Body Mass Index : 29.6 kg/m2 (HI) [place] Body Weight (IBW) : 54.3 kg Dottie [...] on filedocumented in this encounter Care Teams Oyster Unloader Relationship Specialty Start Date End Date Jayden Rowan MD [address] [place] [phone] PCP - General General Internal Medicine 07/05/22 documented as of this encounter
--- OUTSIDE RECORDS SUMMARY | 2024-08-09 10:33 | XMS_ITS | Patient Health Record ---
Author Organization [facility] Address [address] [place] [address] Care Team Providers Care Geriatric Physical Therapist Name Role Phone Livier Crane Primary Care Provider LIVIER Crane APRN Unavailable Unavailable Manpreet Lemus Unavailable [phone] Migration, Provider Unavailable Unavailable Allergies Allergen (clinical drug ingredient) Drug/Non Drug Allergy documented on EMR Reaction Allergy Type Onset Date Status PERCODAN (uncoded) hallunications Allergy Active ZOFRAN (uncoded) stomach upset Allergy Active hydromorphone Dilaudid vomiting Drug Allergy Act florecita morphine Morphine vomiting Drug Allergy Active Results Component Value Reference Range Notes LIPID PANEL, STANDARD (7600) Reviewed date:09/22/2023 01:50:40 PM Interpretation: Performing Lab:CB, [facility] Egfi[address] [facility] Rob Hu Notes/Report: FASTING: YES FASTING:YES NON-FASTING; NON-FASTING; NON-FASTING; NON-FASTING; NON-FAST CHOLESTEROL, TOTAL 130 <200 mg/dL HDL CHOLESTEROL [...] LDL-C. Warren BEYER et al. ALLAN. 2013;310(19): 5529-8539 (http://education.Woven Systems.Pillars4Life/faq/WHW006) CHOL/HDLC RATIO 2.9 <5.0 (calc) NON HDL CHOLESTEROL 85 <130 mg/dL (calc) For patients with diabetes plus 1 major ASCVD risk factor, treating to a non-HDL-C goal of <100 mg/dL (LDL-C of <70 mg/dL) is considered a therapeutic option. COMPREHENSIVE METABOLIC PANE (17966) Reviewed date:09/22/2023 01:50:40 PM Interpretation: Performing Lab:CB, [facility] [address], MoveEZObmbRZ[address] Rob Hu Notes/Report: NON-FASTING; NON-FASTING; NON-FASTING; NON-FASTING; [...] Reviewed date:09/22/2023 01:50:40 PM Interpretation: Performing Lab:CB, [facility] [address], [facility] TherapeuticsXqewUV[address] Rob Hu Notes/Report: NON-FASTING; NON-FASTING; NON-FASTING; NON-FASTING; NON-FAST FASTING:YES FASTING: YES WHITE BLOOD CELL COUNT 7.9 3.8-10.8 Thousand/ uL RED BLOOD CELL COUNT 4.95 3.80-5.10 Million/uL HEMOGLOBIN 12.3 11.7-15.5 g/dL HEMATOCRIT 39.5 35.0-45.0 % MCV 79.8 80.0-100.0 fL MCH 24.8 27.0-33.0 pg MCHC 31.1 32.0-36.0 g/dL RDW 14.4 11.0-15.0 % PLATELET COUNT 236 140-400 Thousand/uL MPV 10.1 7.5-12.5 fL ABSOLUTE NEUTROPHILS 5230 4128-7686 cells/uL ABSOLUTE LYMPHOCYTES 5844 270-4621 cells/uL ABSOLUTE MONOCYTES 545 200-950 cells/uL ABSOLUTE EOSINOPHILS 300 15-500 cells/uL ABSOLUTE BASOPHILS 40 0-200 cells/uL NEUTROPHILS 66.2 LYMPHOCYTES 22.6 MONOCYTES 6.9 EOSINOPHILS 3.8 BASOPHILS 0.5 HEMOGLOBIN A1c (496) Reviewed date:09/22/2023 01:50:40 PM Interpretation: Performing Lab:YOLANDA [facility], [facility] InstituteUrsbDZ[address] Rob Hu Notes/Report: NON-FASTING; NON-FASTING; NON-FASTING; NON-FASTING; [...] change in test platforms from the Espino Educational Audiologist to the Ramila fuentes c503 may have shifted HbA1c results compared to historical results. Based on laboratory validation testing conducted at [facility], the Ramila platform relative to the Espino [...] Lab:CB, [facility] [address], Allan CrainDhdlTF[address] Rob Hu Notes/Report: NON-FASTING; NON-FASTING; NON-FASTING; NON-FASTING; NON-FAST FASTING:YES FASTING: YES VITAMIN B12 363 494-2036 pg/mL Reason For Referral No Information Medications [...] review and pick correct strength-formulati on from RingCaptcha options. If intended option is not shown, [...] review and pick correct strength-formulati on from RingCaptcha options. If intended option is not shown, [...] Problem Status W/U Status Risk Notes Problem 102995524 Mixed hyperlipidemia (E78.2) Active confirmed Problem 506994870 Depression with anxiety (F41.8) Active confirmed Problem 346073355 COPD exacerbatio n (J44.1) Active confirmed Problem 00796707 RLS (restless le gs syndrome) (G25.81) Active confirmed Problem Type 2 diabetes mellitus (E11.9) Active confirmed Problem 037029080 Tobacco use disorder (F17.200) Active confirmed Problem 826230186 Migraine with status migrainosus, not intractable, unspecified migraine type (G43.901) Active confirmed Vital Signs Heart Rate 96 /min 09/21/2023 Temperature 97.8 degrees Fahrenheit 09/21/2023 Blood pressure diastolic 60 mm Hg 09/21/2023 Height 63 in 09/21/2023 Blood pressure systolic 112 mm Hg 09/21/2023 Weight 149.6 lbs 09/21/2023 BMI 26.5 kg/m2 09/21/2023 Encounters Encounter Location Date Provider Diagnosis [facility] [address] [place] [address] 05/25/2024 Provider Migration [facility] [address] [place] [address] 08/21/2023 Manpreet Lemus COPD exacerbation J44.1 ; Wrist pain, right M25.531 ; Unspecified fall, initial encounter W19.XXXA and Unspecified place in unspecified non-institutional (private) residence as the place of occurrence of the external cause Y92.009 [facility] [address] [place] [address] 09/21/2023 Livier McNees Migraine with status migrainosus, not intractable, unspecified migraine type G43.901 ; Type 2 diabetes mellitus E11.9 ; B12 deficiency E53.8 ; Tremor R25.1 ; Depression with anxiety F41.8 ; Mixed hyperlipidemia E78.2 ; 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 ; Tobacco use disorder F17.200 and RLS (restless legs syndrome) G25.81 [facility] [address] [place] [address] 08/23/2023 Livier McNees [facility] [address] [facility] [address] [place] [address] 08/23/2023 Manpreet Besson [facility] [address] [facility] [address] [place] [address] 08/28/2023 Manpreet Besson Asymptomatic age-related postmenopausal state Z78.0 [facility] [address] [facility] [address] [place] [address] 09/04/2023 Livier McNees [facility] [address] [facility] [address] [place] [address] 09/11/2023 Manpreet Besson Acute cystitis witho ut hematuria N30.00 [facility] [address] [facility] [address] [place] [address] 09/22/2023 Livier McNees [facility] [address] [facility] [address] [place] [address] 10/09/2023 Manpreet Besson [facility] [address] [facility] [address] [place] [address] 10/20/2023 Livier McNees Assessments Encounter Date Diagnosis (ICD Code) Assessment Notes Treatment Notes Treatment Clinical Notes Section Notes 08/21/2023 COPD exacerbation (ICD-10 - J44.1) COPD exacerbation. Treat as noted with internal muscular dexamethasone followed by Doxy. Add Proventil for rescue inhaler, we will [...] End Date [employer] MEDICARE DUAL [address] [address] [place] [address] [id number] Cecile Escobedo Self - patient is the insured Medications Administered Medication Instructions Date of Administration Dosage Notes Dexamethasone 4mg Injection 12/20/2022 4 mL Dexamethasone 4mg Injection 05/15/2023 4 mg Dexamethasone 4mg Injection 08/21/2023 4 mg Medical (General) History Medical History History ICD Code COPD Diabetes Hyperlipidemia Depression/Anxiety RLS Migraine B12 def Surgical History Surgery Date(Month/Year) Appendectomy 1968 Total hysterectomy 1999 Cholecysyectomy 2002 Hernia repair 2000 bladder retuck Hospitalization History Reason Date(Month/Year) mild stroke 2014 all above surgeries Bacterial infection 2016
--- OUTSIDE RECORDS SUMMARY | 2024-08-09 10:33 | XMS_ITS | Encounter Summary ---
Author Organization [employer] [facility] Address [address] [place] [address] Care Team Providers Care Delivery Truck Driver Name Role Phone Jayden Rowan MD Primary Care Provider [phone] Encounter Details Date Type Department Care Team (Late st Contact Info) Description 06/26/2020 Transcribed Document [facility] [place] [facility] [place] [address] ProviderJason MD [address] [place] [address] Social History Tobacco Use Types Packs/Day [...] On: 06/26/2020 17:12 EDT by Tori Rolon glaucoma specialist Process Patient Disposition : Discharge Personal Belongings [...] - 06/26/2020 17:12 EDT Electronically signed by [facility] Conversion Alley Cleaner Cerner at 06/09/2022 3:27 PM CDT documented in this encounter Plan of Treatment Not on file documented as of this encounter Visit Diagnoses Not on filedocumented in this encounter Care Teams Delivery Truck Driver Relationship Specialty Start Date End Date Jayden Rowan MD [address] [place] [phone] PCP - General General Internal Medicine 07/05/22 documented as of this encounter
--- OUTSIDE RECORDS SUMMARY | 2024-08-09 10:33 | XMS_ITS | Encounter Summary ---
Author Organization [employer] [facility] Address [address] [place] [address] Care Team Providers Care Speech Language Therapist Name Role Phone Jayden Rowan MD Primary Care Provider [phone] Encounter Details Date Type Department Care Team (Late st Contact Info) Description 02/06/[address] [facility] [place] [address] [place] [address] ProviderJason MD [address] [place] [address] Social History Tobacco Use Types [...] - Jason ProviderMD - 02/06/2020 1:15 PM SOFT TOP INSTALLER Broset Violence Assessment Entered On: 02/06/2020 13:24 EST Performed On: 02/06/2020 13:20 EST by RACHAEL QUINTANA RN Broset Violence Assessment Broset Violence Checklist of Symptoms : None Broset Violence Symptoms Subtotal : 0 Broset Violence Symptoms Indicator : Low risk (0) Broset Interventions : [place] precautions for safety used RACHAEL QUINTANA RN - 02/06/2020 13:20 EST Electronically signed by Tadeo [facility] Conversion Brand Marketing Specialist Cerner at 06/09/2022 3:30 PM CDT documented in this encounter Plan of Treatment Not on file documented as of this encounter Visit Diagnoses Not on filedocumented in this encounter Care Teams Speech Language Therapist Relationship Specialty Start Date End Date Jayden Rowan MD [address] [place] [phone] PCP - General General Internal Medicine 07/05/22 documented as of this encounter
--- OUTSIDE RECORDS SUMMARY | 2024-08-09 10:33 | XMS_ITS | Referral Summary ---
Author Organization [employer] [facility] Address [address] [place] [address] Care Team Providers Care Data Migration Consultant Name Role Phone Jayden Rowan MD Primary Care Provider [phone] Allergies Active Allergy Reactions Criticality Noted Date [...] Jean Carlos rded Speak language other than Belgian at home Not on file 03/10/2023 Want [...] Author No 07/08/2022 2:52 PM CDT Bouchra Gonzalze RN * Do you have serious difficulty [...] A1C 6.7 % 07/05/2022 9:44 PM EDT [facility] Comment: Hemoglobin A1C levels are related to mean glucose during the preceding 2-3 months. Less than 7% demonstrates glycemic control in diabetic patients. Hemoglobin AlC % Suggested Diagnosis > or = 6.5 Diabetic 5.7 - 6.4 Prediabetic <5.7 Non-diabetic eAVG Glucose 145.59 mg/dL 07/05/2022 9:44 PM EDT [facility] Blood Venipuncture / Unknown 07/05/2022 12:26 PM EDT 07/05/2022 12:26 PM EDT us Fady Bates MD LAB BLOOD ORDERABLES Final Res ult [facility] [address] [phone] from Last 3 Months or Most Recently Relevant to Health Maintenance Insurance [place]ICAID [place] [employer] MEDICAID [place] Advance Directives For more information, please contact: [phone] Documents on File Type Date Recorded Patient Hairspring Fabrication Supervisor Expl anation Advance Directives and Ramesh g Will 07/07/2022 7:11 AM * Full Code (Latest Code Status on File) Date Activated Date Inactivated Comments 07/07/2022 4:06 PM 07/08/2022 4:14 PM Care Teams Data Migration Consultant Relationship Specialty Start Date End Date Jayden Rowan MD [address] [place] [phone] PCP - General General Internal Medicine 07/05/22
--- OUTSIDE RECORDS SUMMARY | 2024-08-09 10:33 | XMS_ITS | Encounter Summary ---
Author Organization [employer] [facility] Address [address] [place] [address] Care Team Providers Care Animal Husbandry Teacher Name Role Phone Jayden Rowan MD Primary Care Provider [phone] Encounter Details Date Type Department Care Team (Late st Contact Info) Description 04/08/2018 Transcribed Document [facility] [place] [facility] [place] [address] ProviderJason MD [address] [place] [address] Social History Tobacco Use Types Packs/Day [...] Jason Zendejas MD - 04/08/2018 3:24 PM TEAR DOWN MAN Patient: CECILE RAMIREZ Age: 63 years Sex: [...] route. There was no reported trauma. Our Special Delivery Mail Carrier has spoken with her cbxkwf-vj-leg. The patient has reportedly been stating that [...] Fall Risk Assessment: ED Clinical Reconciliation: ED secret code expert: Normal Saline Flush: 10 mL, IV Push, [...] % 29.4 % Lymph # 2.57 x10(3)/uL Alpine % 6.7 % Alpine # 0.59 K/uL Eos % 3.3 % Eos # 0.29 x10(3)/uL Baso % 0.6 % Baso # 0.05 x10(3)/uL Slide Review No IG# 0.04 x10(3)/uL IG% 0.50 % PT 10.0 Second(s) INR 0.9 Urine Type U CleanCatch Urine Color Yellow Urine Appearance Clear Urine Specific Casper 1.007 Urine pH Dipstick 6.5 Urine Leukocyte [...] Radiology results: Radiology Results (Last 48 hours) [id number] -- 04/08/2018 15:14 CT Head WO (04/08/2018 [...] Stable. Counseled: Patient, Family. Electronically signed by [facility], [facility] Conversion Audio Video Mechanic Cerner at 06/09/2022 3:28 PM CDT documented in this encounter Plan of Treatment Not on file documented as of this encounter Visit Diagnoses Not on filedocumented in this encounter Care Teams Animal Husbandry Teacher Relationship Specialty Start Date End Date Jayden Rowan MD [address] [place] [phone] PCP - General General Internal Medicine 07/05/22 documented as of this encounter
--- OUTSIDE RECORDS SUMMARY | 2024-08-09 10:33 | XMS_ITS | Encounter Summary ---
Author Organization [employer] [facility] Address [address] [place] [address] Care Team Providers Care Fuller Brush Worker Name Role Phone Leanna Rivera MD Primary Care Provider [phone] Encounter Details Date Type Department Care Team (Late st Contact Info) Description 09/05/2018 Transcribed Document [facility] Radiology [address] [place] [id number] Gali Garrett MD [facility] Dept of Emergency [place] [address] Social History Tobacco Use Types Packs/Day Years [...] EDT Height Source Stated Height Entry Format [place] Height/Length, BOTSWANAN (ft) 5 ft Height/Length BOTSWANAN 4 Inch CLINICALHEIGHT 162.56 cm Joy Body Weight 54.3 kg Weight Source, ED Critical estimated dosing weight Weight Entry Format [place] Weight Greek lb 162 lb CLINICALWEIGHT 73.64 kg Body [...] on filedocumented in this encounter Care Teams Fuller Brush Worker Relationship Specialty Start Date End Date Leanna Rivera MD [address] [place] [phone] PCP - General General Internal Medicine 07/05/22 documented as of this encounter
--- OUTSIDE RECORDS SUMMARY | 2024-08-09 10:33 | XMS_ITS | Encounter Summary ---
Author Organization [employer] [facility] Address [address] [place] [address] Care Team Providers Care Recreation Attendant Name Role Phone Leanna Rivera MD Primary Care Provider [phone] Encounter Details Date Type Department Care Team (Late st Contact Info) Description 05/23/2018 Transcribed Document [facility] [place] Family [place] [address] ProviderJason MD [address] [place] [address] Social History Tobacco Use Types Packs/Day [...] Zendejas MD - 05/23/2018 6:05 PM CDT [address] [address] Patient Information Name: CECILE RAMIREZ Age: 63 Years Date of : 1955 Arrival Time: 05/23/2018 17:19:00 Diagnosis Migraine Primary Care Physician: LEANNA RIVERA MD-INT Provider Information Primary Provider: TONEY JORGENSEN MD Secondary Provider: CECILE RAMIREZ has been given the following list of patient education materials, prescriptions and follow-up instructions: Follow-up Instructions: With: Address: When: LEANNA RIVERA [address], [address] [place] [id number] Business (1) Within 2 to 3 days [...] these instructions at home: Medicines ??? Take tzns-rfh-wfwyewu and prescription medicines only as told by your health care provider. ??? Do notdrive or use heavy machinery while taking prescription pain medicine. ??? To prevent or treat constipation while you are taking prescription pain medicine, your health care provider may recommend that you: ? Drink enough fluid to keep your urine clear or pale yellow. ? Take qwks-sik-rlvbgjf or prescription medicines. ? Eat foods that [...] 02/06/2006 Document Revised: 08/26/2016 Document Reviewed: 07/25/2016 [employer] Patient Education ? 2017 [employer] Allergies: acetaminophen-HYDROcodone; Maxalt; Imitrex; Zofran; HYDROmorphone; [...] verify that CECILE RAMIREZ was seen at [facility] Emergency Department on ,05/23/2018 18:05:18. This [...] along the way. As a healthcare provider, [facility] recommends that you stop smoking. Assistance with quitting is available by contacting 5-816-EMQG-NOW. This is a free resource providing counseling, [...] Electronic Communications Privacy Act 18 U.S.C. ???Sections 3006-7697,?? and contain information intended for the specified [...] Be sure to sign up for the creditmontoring.com patient portal, which gives you 12/09 access to your medical information ??? including these discharge instructions ??? using your computer, smartphone, or tablet. Just go to [employer] to get started. Questions? Call . Acknowledgment [...] on filedocumented in this encounter Care Teams Recreation Attendant Relationship Specialty Start Date End Date Leanna Rivera MD [address] [place], [place] [address], [place] [address] PCP - General General Internal Medicine 07/05/22 documented as of this encounter
--- OUTSIDE RECORDS SUMMARY | 2024-08-09 10:33 | XMS_ITS | Encounter Summary ---
Author Organization [employer] [facility] Address [address] [place] [address] Care Team Providers Care Vice President Of Academic Affairs Name Role Phone Jayden Rowan MD Primary Care Provider [phone] Encounter Details Date Type Department Care Team (Late st Contact Info) Description 08/24/2021 Transcribed Document [facility] [place] [facility] [place] [address] ProviderJason MD [address] [place] [address] Social History Tobacco Use Types [...] on filedocumented in this encounter Care Teams Vice President Of Academic Affairs Relationship Specialty Start Date End Date Jayden Rowan MD [address] [place] [phone] PCP - General General Internal Medicine 07/05/22 documented as of this encounter
--- OUTSIDE RECORDS SUMMARY | 2024-08-09 10:33 | XMS_ITS | Encounter Summary ---
Author Organization [employer] [facility] Address [address] [place] [address] Care Team Providers Care Security Screener Name Role Phone Jayden Rowan MD Primary Care Provider [phone] Encounter Details Date Type Department Care Team (Late st Contact Info) Description 06/19/2019 Transcribed Document [facility] [place] [facility] [place] [address] ProviderJason MD [address] [place] [address] Social History Tobacco Use Types Packs/Day [...] Zendejas MD - 06/19/2019 8:59 PM CDT [place] Suicide Severity Rating Scale (C-SSRS) Entered On: 06/19/2019 21:09 EDT Performed On: 06/19/2019 21:09 EDT by Dottie Baltazar RN [place] Suicide Severity Rating Scale (C-SSRS) CSSRS [...] on filedocumented in this encounter Care Teams Security Screener Relationship Specialty Start Date End Date Jayden Rowan MD [address] [place] [phone] PCP - General General Internal Medicine 07/05/22 documented as of this encounter
--- OUTSIDE RECORDS SUMMARY | 2024-08-09 10:33 | XMS_ITS | Encounter Summary ---
Author Organization [employer] [facility] [employer] Address [address] [place] [address] Care Team Providers Care Labor Representative Name Role Phone Jayden Rowan MD Primary Care Provider [phone] Encounter Details Date Type Department Care Team (Late st Contact Info) Description 03/04/2019 Transcribed Document [facility] [place] [facility] [place] [address] ProviderJason MD [address] [place] [address] Social History Tobacco Use Types Packs/Day Years Used Date Smoking Tobacco: Never Assessed Comments Unknown Sex and Gender Information Value Date Recorded Sex Assigned at Not on file Legal Sex Female 3:15 PM CDT Gender Identity Not on file Sexual Orientation Not on file documented as of this encounter Miscellaneous Notes * Cerner Conversion Note - Jason ProviderMD - 03/04/2019 1:08 AM RADIO EQUIPMENT REPAIRER ED Discharge Entered On: 03/04/2019 1:09 EST [...] 03/04/2019 1:08 EST Electronically signed by Tadeo [facility] Conversion Alcohol Still Operator Cerner at 06/09/2022 3:29 PM CDT documented in this encounter Plan of Treatment Not on file documented as of this encounter Visit Diagnoses Not on filedocumented in this encounter Care Teams Labor Representative Relationship Specialty Start Date End Date Jayden oRwan MD [address] [place] [phone] PCP - General General Internal Medicine 07/05/22 documented as of this encounter
--- OUTSIDE RECORDS SUMMARY | 2024-08-09 10:33 | XMS_ITS | Encounter Summary ---
Author Organization [employer] Address [address] [place] [address] Care Team Providers Care Software Licensing Executive Name Role Phone Jayden Rowan MD Primary Care Provider [phone] Encounter Details Date Type Department Care Team (Late st Contact Info) Description 02/06/2020 Transcribed Document [facility] [place] [address] ProviderJason MD [address] [place] [address] Social History Tobacco Use Types Packs/Day [...] Jason Zendejas MD - 02/06/2020 1:15 PM SCRAP SEPARATOR [place] Suicide Severity Rating Scale (C-SSRS) Entered On: 02/06/2020 13:24 EST Performed On: 02/06/2020 13:20 EST by RACHAEL QUINTANA RN [place] Suicide Severity Rating Scale (C-SSRS) CSSRS Past Month Wish to be : No CSSRS Past Month Suicidal Thoughts : No CSSRS Lifetime Suicide Behavior : No Suicide Severity Rating Score : 0 Suicide Severity Rating : No Additional Care Required at this time RACHAEL QUINTANA RN - 02/06/2020 13:20 EST Electronically signed by Tadeo [facility] Conversion Hr Assistant Cerner at 06/09/2022 3:31 PM CDT documented in this encounter Plan of Treatment Not on file documented as of this encounter Visit Diagnoses Not on filedocumented in this encounter Care Teams Software Licensing Executive Relationship Specialty Start Date End Date Jayden Rowan MD [address] [place] [phone] PCP - General General Internal Medicine 07/05/22 documented as of this encounter
--- OUTSIDE RECORDS SUMMARY | 2024-08-09 10:33 | XMS_ITS | Encounter Summary ---
Author Organization [employer] Address [address] [place] [address] Care Team Providers Care Product Architect Name Role Phone Jayden Rowan MD Primary Care Provider [phone] Encounter Details Date Type Department Care Team (Late st Contact Info) Description 06/19/2019 Transcribed Document [facility] [place] [address] ProviderJason MD [address] [place] [address] Social History Tobacco Use Types Packs/Day [...] 06/19/2019 11:14 PM CDT Electronically signed by Tda[facility] Conversion Manager Sourcing Cerner at 06/09/2022 3:29 PM CDT documented in this encounter Plan of Treatment Not on file documented as of this encounter Visit Diagnoses Not on filedocumented in this encounter Care Teams Product Architect Relationship Specialty Start Date End Date Jayden Rowan MD [address] [place] [phone] PCP - General General Internal Medicine 07/05/22 documented as of this encounter
--- OUTSIDE RECORDS SUMMARY | 2024-08-09 10:33 | XMS_ITS | Encounter Summary ---
Author Organization [employer] Address [address] [place] [address] Care Team Providers Care Material Requirements Worker Name Role Phone Leanna Rivera MD Primary Care Provider [phone] Encounter Details Date Type Department Care Team (Late st Contact Info) Description 04/30/2019 Transcribed Document [facility] [place] Family [place] [facility] [place] [address] ProviderJason MD [address] [place] [address] Social History Tobacco Use Types Packs/Day [...] Zendejas MD - 04/30/2019 2:[address] [facility] [address] [place] [address] CECILE RAMIREZ DARREN :1955 Visit [...] When Within 2 to 3 days Where: [address] [place] [address] [address] [place] [address]- Business (1) Allergies HYDROmorphone Imitrex [...] these instructions at home: Medicines ??? Take ezjp-tcf-clpceiq and prescription medicines only as told by your health care provider. ??? Do not drive or use heavy machinery while taking prescription pain medicine. ??? To prevent or treat constipation while you are taking prescription pain medicine, your health care provider may recommend that you: ? Drink enough fluid to keep your urine clear or pale yellow. ? Take erxp-ywk-xstobbx or prescription medicines. ? Eat foods that [...] 02/06/2006 Document Revised: 08/26/2016 Document Reviewed: 07/25/2016 [employer] Patient Education ?? 2019 [employer] Emergency Awareness and Preventative Care STROKE [...] was given the opportunity to ask questions. Patient/Community Liaison Name: Patient/Community Liaison Signature: Relationship to Patient: Clinician/Hospital Community Liaison Signature: Please Provide a Telephone Number Where You Can Be Reached: Is it Permissible To Leave a Message? Date: documented in this encounter Plan of Treatment Not on file documented as of this encounter Visit Diagnoses Not on filedocumented in this encounter Care Teams Material Requirements Worker Relationship Specialty Start Date End Date Leanna Rivera MD [address] [place] [phone] PCP - General General Internal Medicine 07/05/22 documented as of this encounter
--- OUTSIDE RECORDS SUMMARY | 2024-08-09 10:33 | XMS_ITS | Clinical Summary ---
Author Organization [employer] Address [address] [place] [address] Care Team Providers Care Grease Rack Worker Name Role Phone Jayden Rowan MD Primary Care Provider [phone] Allergies Active Allergy Reactions Criticality Noted Date [...] Jean Carlos rded Speak language other than Liberian at home Not on file 03/10/2023 Want [...] A1C 6.7 % 07/05/2022 9:44 PM EDT [facility] Comment: Hemoglobin A1C levels are related to mean glucose during the preceding 2-3 months. Less than 7% demonstrates glycemic control in diabetic patients. Hemoglobin AlC % Suggested Diagnosis > or = 6.5 Diabetic 5.7 - 6.4 Prediabetic <5.7 Non-diabetic eAVG Glucose 145.59 mg/dL 07/05/2022 9:44 PM EDT [facility] Blood Venipuncture / Unknown 07/05/2022 12:26 PM EDT 07/05/2022 12:26 PM EDT us Fady Bates MD LAB BLOOD ORDERABLES Final Res ult [facility] [address] [phone] from Last 3 Months or Most Recently Relevant to Health Maintenance Insurance MEDICAID [place] [employer] MEDICA[employer] [id number] Advance Directives For more information, please contact: [phone] Documents on File Type Date Recorded Patient Land Commissioner Expl anation Advance Directives and Livin g Will 07/07/2022 7:11 AM * Full Code (Latest Code Status on File) Date Activated Date Inactivated Comments 07/07/2022 4:06 PM 07/08/2022 4:14 PM Care Teams Grease Rack Worker Relationship Specialty Start Date End Date Jayden Rowan MD [address] [place] [phone] PCP - General General Internal Medicine 07/05/22
--- OUTSIDE RECORDS SUMMARY | 2024-08-09 10:33 | XMS_ITS | Encounter Summary ---
Author Organization [employer] Address [address] [place] [address] Care Team Providers Care Graphic Designer Name Role Phone Jayden Rowan MD Primary Care Provider [phone] Encounter Details Date Type Department Care Team (Late st Contact Info) Description 10/19/2021 Transcribed Document [facility] [place] Family Medicine [address] [place] [address] ProviderJason MD [address] [place] [address] Social History Tobacco Use Types Packs/Day Years Used Date Smoking Tobacco: Never Assessed Comments Unknown Sex and Gender Information Value Date Recorded Sex Assigned at Not on file Legal Sex Female 3:15 PM CDT Gender Identity Not on file Sexual Orientation Not on file documented as of this encounter Miscellaneous Notes * Cerner Conversion Note - Jason ProviderMD - 10/19/2021 3:28 PM CDT [place] Violence [...] on filedocumented in this encounter Care Teams Graphic Designer Relationship Specialty Start Date End Date Usery, Jayden R, MD [address] [place] [phone] PCP - General General Internal Medicine 07/05/22 documented as of this encounter
--- OUTSIDE RECORDS SUMMARY | 2024-08-09 10:33 | XMS_ITS | Encounter Summary ---
Author Organization [employer] Address [address] [place] [address] Care Team Providers Care Egg Sorter Name Role Phone Jayden Rowan MD Primary Care Provider [phone] Encounter Details Date Type Department Care Team (Late st Contact Info) Description 08/11/2020 Transcribed Document [facility] [place] [facility] [place] [address] ProviderJason MD [address] [place] [address] Social History Tobacco Use Types Packs/Day [...] On: 08/11/2020 14:02 EDT by RACHAEL QUINTANA, yard supervisor cotton gin Process Patient Disposition : Discharge Personal Belongings [...] - 08/11/2020 14:13 EDT Electronically signed by [facility] Conversion Security Public Safety Officer Cerner at 06/09/2022 3:31 PM CDT documented in this encounter Plan of Treatment Not on file documented as of this encounter Visit Diagnoses Not on filedocumented in this encounter Care Teams Egg Sorter Relationship Specialty Start Date End Date Jayden Rowan MD [address] [place] [phone] PCP - General General Internal Medicine 07/05/22 documented as of this encounter
--- OUTSIDE RECORDS SUMMARY | 2024-08-09 10:33 | XMS_ITS | Encounter Summary ---
Author Organization [employer] Address [address] [place] [address] Care Team Providers Care Plumbing And Heating Mechanic Name Role Phone Jayden Rowan MD Primary Care Provider [phone] Encounter Details Date Type Department Care Team (Late st Contact Info) Description 06/10/2020 Transcribed Document [facility] [place] [facility] [place] [address] ProviderJason MD [address] [place] [address] Social History Tobacco Use Types [...] form. Electronically signed by Jolie Piedra Conversion Print Binding And Finishing Worker Cerner at 06/09/2022 3:29 PM CDT documented in this encounter Plan of Treatment Not on file documented as of this encounter Visit Diagnoses Not on filedocumented in this encounter Care Teams Plumbing And Heating Mechanic Relationship Specialty Start Date End Date Jayden Rowan MD [address] [place] [phone] PCP - General General Internal Medicine 07/05/22 documented as of this encounter
--- OUTSIDE RECORDS SUMMARY | 2024-08-09 10:33 | XMS_ITS | Encounter Summary ---
Author Organization [employer] Address [address] [place] [address] Care Team Providers Care Film Numberer Name Role Phone Leanna Rivera MD Primary Care Provider [phone] Encounter Details Date Type Department Care Team (Late st Contact Info) Description 10/02/2020 Transcribed Document [facility] Family Medicine [facility] [place] [address] ProviderJason MD [address] [place] [address] Social History Tobacco Use Types Packs/Day [...] Zendejas MD - 10/02/2020 12:11 PM CDT [facility] [address] [place] [address] MAMADOU RAMIREZChino BANKS :1955 Visit [...] Within 2 to 3 days Where: [address] [place] [address] [address] [place] [address] Business (1) Allergies HYDROmorphone Imitrex Maxalt Zofran [...] these instructions at home: Medicines ??? Take rmod-krr-godovnx and prescription medicines only as told by your health care provider. ??? Ask your health care provider if the medicine prescribed to you: ? Requires you to avoid driving or using heavy machinery. ? Can cause constipation. You may need to take these actions to prevent or treat constipation: ? Drink enough fluid to keep your urine pale yellow. ? Take eykc-bjc-hzosehd or prescription medicines. ? Eat foods that [...] provider. Document Revised: 05/31/2019 Document Reviewed: 03/21/2019 [employer] Patient Education ?? 2020 [employer]. Emergency Awareness and Preventative Care STROKE is [...] Assistance with quitting is available by contacting 6-131-VSPM-NOW. This is a free resource providing counseling, [...] was given the opportunity to ask questions. Patient/Program Manager Transportation Name: Patient/Program Manager Transportation Signature: Relationship to Patient: Clinician/Hospital Program Manager Transportation Signature: Please Provide a Telephone Number Where You Can Be Reached: Is it Permissible To Leave a Message? Date: documented in this encounter Plan of Treatment Not on file documented as of this encounter Visit Diagnoses Not on filedocumented in this encounter Care Teams Film Numberer Relationship Specialty Start Date End Date Leanna Rivera MD [address] [place] [address] [place] [phone] PCP - General General Internal Medicine 07/05/22 documented as of this encounter
--- OUTSIDE RECORDS SUMMARY | 2024-08-09 10:33 | XMS_ITS | Encounter Summary ---
Author Organization [employer] Address [address] [place] [address] Care Team Providers Care Associate Professor Computer Science Name Role Phone Jayden Rowan MD Primary Care Provider [phone] Encounter Details Date Type Department Care Team (Late st Contact Info) Description 02/06/2020 Transcribed Document [facility] [place] [facility] [place] [address] ProviderJason MD [address] [place] [address] Social History Tobacco Use Types Packs/Day [...] Jason Zendejas MD - 02/06/2020 2:02 PM [facility] Discharge Entered On: 02/06/2020 14:03 EST [...] 02/06/2020 14:02 EST Electronically signed by Tadeo, [facility] Conversion Administrative Appeals Tribunal Member Cerner at 06/09/2022 3:27 PM CDT documented in this encounter Plan of Treatment Not on file documented as of this encounter Visit Diagnoses Not on filedocumented in this encounter Care Teams Associate Professor Computer Science Relationship Specialty Start Date End Date Jayden Rowan MD [address] [place] [phone] PCP - General General Internal Medicine 07/05/22 documented as of this encounter
--- OUTSIDE RECORDS SUMMARY | 2024-08-09 10:33 | XMS_ITS | Encounter Summary ---
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 C/O shoulder and wrist pain Chung Wasserman, Director Emergency Services - 06/20/2018 5:28 EDT DCP GENERIC CODE Tracking Acuity : 4 - Non - Urgent Tracking Group : [facility] [place], Director Emergency Services - 06/20/2018 5:28 [...] 06/20/2018 05:32:56 EDT) Problems(Active) Anxiety (SNOMED CT :42138587 ) Name of Problem: Anxiety ; Recorder: BOB PEARCE RN; Confirmation: Confirmed ; Classification: Medical ; Code: [id number] ; Contributor System: PowerChart ; Last Updated: 08/01/2013 19:25 EDT ; Life Cycle Date: 05/11/2013 ; Life Cycle Status: Active ; Vocabulary: SNOMED CT Appendectomy (SNOMED CT :848569619 ) Name of Problem: Appendectomy ; Recorder: BOB PEARCE RN; Confirmation: Confirmed ; Classification: Medical ; Code: [id number] ; Contributor System: PowerChart ; Last Updated: 08/06/2013 10:55 EDT ; Life Cycle Date: 05/11/2013 ; Life Cycle Status: Active ; Vocabulary: SNOMED CT Bladder (SNOMED CT :455099398 ) Name of Problem: Bladder ; Recorder: BOB PEARCE RN; Confirmation: Confirmed ; Classification: Medical ; Code: [id number] ; Contributor System: PowerChart ; Last Updated: 08/08/2013 13:51 EDT ; Life Cycle Date: 05/11/2013 ; Life Cycle Status: Active ; Vocabulary: SNOMED CT ; Comments: 05/11/2013 16:28 - BOB PEARCE RN bladder sling Cholecystectomy (SNOMED CT :03632674 ) Name of Problem: Cholecystectomy ; Recorder: BOB PEARCE RN; Confirmation: Confirmed ; Classification: Medical ; Code: [id number] ; Contributor System: PowerChart ; Last Updated: 08/06/2013 10:53 EDT ; Life Cycle Date: 05/11/2013 ; Life Cycle Status: Active ; Vocabulary: SNOMED CT COPD (chronic obstructive pulmonary disease) (SNOMED CT :91248962 ) Name of Problem: COPD (chronic obstructive pulmonary disease) ; Recorder: BONNIE FUCHS RN; Confirmation: Confirmed ; Classification: Medical ; Code: 67130258 ; Contributor System: Flare3dChart ; Last Updated: 06/30/2014 10:41 EDT ; Life Cycle Date: 06/30/2014 ; Life Cycle Status: Active ; Vocabulary: SNOMED CT Depression (SNOMED CT :812705283 ) Name of Problem: Depression ; Recorder: BOB PEARCE RN; Confirmation: Confirmed ; Classification: Medical ; Code: 670829472 ; Contributor System: PowerChart ; Last Updated: 08/01/2013 19:25 EDT ; Life Cycle Date: 05/11/2013 ; Life Cycle Status: Active ; Vocabulary: SNOMED CT Diabetes mellitus (SNOMED CT :542412586 ) Name of Problem: Diabetes mellitus ; Recorder: Arabella Pineda RN; Confirmation: Confirmed ; Classification: Patient Stated ; Code: 400970884 ; Contributor System: PowerChart ; Last Updated: 07/09/2017 2:14 EDT ; Life Cycle Date: 07/09/2017 ; Life Cycle Status: Active ; Vocabulary: SNOMED CT GERD (gastroesophageal reflux disease) (SNOMED CT :602379923 ) Name of Problem: GERD (gastroesophageal reflux disease) ; Recorder: BONNIE FUCHS RN; Confirmation: Confirmed ; Classification: Medical ; Code: 828363271 ; Contributor System: PowerChart ; Last Updated: 06/30/2014 10:41 EDT ; Life Cycle Date: 06/30/2014 ; Life Cycle Status: Active ; Vocabulary: SNOMED CT High cholesterol (SNOMED CT :[id number] ) Name of Problem: High cholesterol ; Recorder: BOB PEARCE RN; Confirmation: Confirmed ; Classification: Medical ; Code: [id number] ; Contributor System: SiBEAM ; Last Updated: 08/01/2013 19:25 EDT ; Life Cycle Date: 05/11/2013 ; Life Cycle Status: Active ; Vocabulary: SNOMED CT Hysterectomy (SNOMED CT :055771909 ) Name of Problem: Hysterectomy ; Recorder: BOB PEARCE RN; Confirmation: Confirmed ; Classification: Medical ; Code: [id number] ; Contributor System: SiBEAM ; Last Updated: 08/06/2013 10:54 EDT ; Life Cycle Date: 05/11/2013 ; Life Cycle Status: Active ; Vocabulary: SNOMED CT Migraine (SNOMED CT :52141887 ) Name of Problem: Migraine ; Recorder: BOB PEARCE RN; Confirmation: Confirmed ; Classification: Medical ; Code: 01138958 ; Contributor System: SiBEAM ; Last Updated: 08/01/2013 19:25 EDT ; Life Cycle Date: 05/11/2013 ; Life Cycle Status: Active ; Vocabulary: SNOMED CT Diagnoses(Active) Shoulder injury - Minor Date: 06/20/2018 ; Diagnosis Type: Reason For Visit ; Confirmation: Complaint of ; Clinical Dx: Shoulder injury - Minor ; Classification: Medical ; Clinical Service: Emergency medicine ; Code: PNED ; Probability: 0 ; Diagnosis Code: [id number] ED Height and Weight Height Source : Estimated Height Entry Format : Petroleum Height, Feet : 5 ft(Converted to: 152 cm, 60 Inch) Height, Inches : 6 Inch(Converted to: 0 ft 6 Inch, 15.24 cm) Clinical Height : 167.64 cm Weight Source, ED : Stated [place] Body Weight (IBW) : 58.88 kg Chung Wasserman, Director Emergency Services - 06/20/2018 5:28 EDT Estimated Weight Type of Weight Measurement Est : Petroleum Weight, est lb : 150 lb(Converted to: 68 kg) Weight, est oz : 0 oz Estimated Clinical Dosing Weight : 68.18 kg Chung Wasserman, Director Emergency Services - 06/20/2018 5:28 EDT Electronically signed by [facility] Conversion Director Payment Cerner at 06/09/2022 3:27 PM CDT documented in this encounter Plan of Treatment Not on file documented as of this encounter Visit Diagnoses Not on filedocumented in this encounter Care Teams Otolaryngology Surgeon Relationship Specialty Start Date End Date Jayden Rowan MD [address] [place] [phone] PCP - General General Internal Medicine 07/05/22 documented as of this encounter
--- OUTSIDE RECORDS SUMMARY | 2024-08-09 10:33 | XMS_ITS | Encounter Summary ---
Author Organization [employer] Address [address] [place] [address] Care Team Providers Care Vehicle Sales Professional Name Role Phone Leanna Rivera MD Primary Care Provider [phone] Encounter Details Date Type Department Care Team (Late st Contact Info) Description 10/19/[address] [facility] [place] [address] ProviderJason MD [address] [place] [id number] Social History Tobacco Use Types Packs/Day Years [...] EDT Height Source Stated Height Entry Format [place] Height/Length, CENTRAL AFRICAN (ft) 5 ft Height/Length CENTRAL AFRICAN 3 Inch CLINICALHEIGHT 160.02 cm [place] Body Weight 52.02 kg Weight Source, ED Critical estimated dosing weight Weight Entry Format [place] Weight [place] lb 136 lb CLINICALWEIGHT 61.82 kg Body [...] follow-up with your doctor. Return if worse.. documented in this encounter Plan of Treatment Not on file documented as of this encounter Visit Diagnoses Not on filedocumented in this encounter Care Teams Vehicle Sales Professional Relationship Specialty Start Date End Date Leanna Rivera MD [address] [place] [phone] PCP - General General Internal Medicine 07/05/22 documented as of this encounter
--- OUTSIDE RECORDS SUMMARY | 2024-08-09 10:34 | XMS_ITS | Encounter Summary ---
Author Organization [employer] Address [address] [place] [address] Care Team Providers Care Searchlight Operator Name Role Phone Jayden Rowan MD Primary Care Provider [phone] Encounter Details Date Type Department Care Team (Late st Contact Info) Description 08/11/2020 Transcribed Document [facility] [place] [facility] [place] [address] ProviderJason MD [address] [place] [address] Social History Tobacco Use Types [...] on filedocumented in this encounter Care Teams Searchlight Operator Relationship Specialty Start Date End Date Jayden Rowan MD [address] [place] [phone] PCP - General General Internal Medicine 07/05/22 documented as of this encounter
--- OUTSIDE RECORDS SUMMARY | 2024-08-09 10:34 | XMS_ITS | Encounter Summary ---
Author Organization [employer] Address [address] [place] [address] Care Team Providers Care Spinning Machine Operator Name Role Phone Jayden Rowan MD Primary Care Provider [phone] Encounter Details Date Type Department Care Team (Late st Contact Info) Description 06/26/2020 Transcribed Document [facility] [place] [facility] [place] [address] ProviderJason MD [address] [place] [address] Social History Tobacco Use Types [...] Zendejas MD - 06/26/2020 3:26 PM CDT [place] Suicide Severity Rating Scale (C-SSRS) Entered On: 06/26/2020 16:32 EDT Performed On: 06/26/2020 16:31 EDT by Tori Rolon RN [place] Suicide Severity Rating Scale (C-SSRS) CSSRS Past Month Wish to be : No CSSRS Past Month Suicidal Thoughts : No CSSRS Lifetime Suicide Behavior : No Suicide Severity Rating Score : 0 Suicide Severity Rating : No Additional Care Required at this time Tori Rolon RN - 06/26/2020 16:31 EDT Electronically signed by Jolie Piedra Conversion Agricultural Education Teacher Cerner at 06/09/2022 3:27 PM CDT documented in this encounter Plan of Treatment Not on file documented as of this encounter Visit Diagnoses Not on filedocumented in this encounter Care Teams Spinning Machine Operator Relationship Specialty Start Date End Date Jayden Rowan MD [address] [place] [phone] PCP - General General Internal Medicine 07/05/22 documented as of this encounter
[2024-08-09 10:55] VITALS: BP 106/66; PULSE 72; RESP 18; TEMP 36.6; O2SAT 99
[2024-08-09] MEDS: SODIUM CHLORIDE 0.9% 50ML BAG 50 ML IV (10:55)
[2024-08-09] MEDS: SODIUM CHLORIDE 0.9% IV (10:55)
[2024-08-09] MEDS: EPTINEZUMAB JJMR IV (10:55)
[2024-08-09 11:35] VITALS: BP 115/62; PULSE 70
== END 2024-08-09 11:30 | disposition home or self-care (01) ==
LOC: INF 10:30
PROVIDERS: PCP Nurse Practitioner Family; Visit Provider Nurse Practitioner Family
DX: G43.909 Migraine, unspecified, not intractable, without status migrainosus (principal)
CPT/HCPCS: 96413; J3032

== ENCOUNTER 2024-08-13 08:29 | Outpatient (CLI) | payer MEDICARE, MEDICAID, SELFPAY ==
--- OUTSIDE RECORDS SUMMARY | 2023-12-28 06:15 | XMS_ITS ---
Author Organization [facility] Address [address] [place] [address] Care Team Providers Care Electronics Mechanic Apprentice Name Role Phone Enoc Crane Primary Care Provider [phone] ENOC Crane APRN Unavailable Unavailable REASON FOR VISIT 3 Month F/U Encounters Encounter Location Date Provider Diagnosis [facility] [address] [place], [place] [address] 12/28/2023 Enoc Crane Plan Of Treatment No Information Progress Notes * RAMIREZ, Alber:1955 (69 yo F)Acc No.[id number]:12/28/2023 Progress Notes Patient: Cecile HUSSEIN Provider: Monie Crane APRN :1955 A ge:68 Y S ex:Female Date:12/28/2023 Address:[address] [id number] Subjective: * Chief Complaints: * 1 . 3 Month F/U. * Medical History: Objective: * Vitals: Assessment: Plan: * Treatment: * * Electronic signature of Phan Crane APRN on 08/13/2024 at 08:32 AM EDT Sign off status: Pending * Provider: Monie Crane APRN Date: 02/26/2023 Generated for Printi ng/Faxing/eTransmitting on: 0 08/13/2024 08:32 AM EDT
--- OUTSIDE RECORDS SUMMARY | 2024-05-25 17:30 | XMS_ITS ---
Author Organization [facility] Address [address] [place] [address] Care Team Providers Care Steel Manager Name Role Phone Enoc Crane Primary Care Provider ENOC Crane APRN Unavailable Unavailable Migration, Provider Unavailable Unavailable Allergies Allergen (clinical drug ingredient) Drug/Non Drug Allergy documented on EMR Reaction Allergy Type Onset Date Status PERCODAN (uncoded) hallunications Allergy Active ZOFRAN (uncoded) stomach upset Allergy Active hydromorphone Dilaudid vomiting Drug Allergy Act florecita morphine Morphine vomiting Drug Allergy Active REASON FOR VISIT [facility] To [facility] Conversion Encounter Medications Medication SIG (Take, [...] Active Encounters Encounter Location Date Provider Diagnosis [facility] [address] [facility] [address] [place] [address] 05/25/2024 Provider Migration Plan Of Treatment Medication [...] Notes * Rivas RAMIREZB:1955 (69 yo F)Acc No.[id number]:05/25/2024 Patient: Mallory HUSSEINa Provider: Pankaj thomson Migration :1955 A ge:69 Y S ex:Female Date:05/25/2024 Address:[place], [id number] Pcp:Enoc Crane Subjective: * Chief Complaints: * 1 . Multum To Medispan Conversion Encounter. * Medical History: * Medications: T aking Trelegy Ellipta 200 MCG-62.5 MCG-25 MCG/INH POWDER 1 PUFF(S) INHALED ONCE A DAY , Notes to Pharmacist: *Please review and pick correct strength-formulation from LC [email or web address]coman options. If intended option is not shown, [...] Electronic signature of Prov ider Migration on 08/13/2024 at 08:31 AM EDT Sign off status: Pending * Provider: Pankaj thomson Migration Date: 0 05/25/2024 Generated for Yumiko robison/Margarette/Jimboitting on: 0 08/13/2024 08:31 AM EDT
--- NOTE | 2024-08-13 08:32 | MR_ITS ---
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 right leg pain COMPARISON: None FINDINGS: Sagittal images show normal vertebral height. There is mild retrolisthesis of L4 on L5 and L5 onto S1. Marrow signal pattern is unremarkable. T12-L1: No evidence of canal stenosis or neural foraminal narrowing. L1-2: No evidence of canal stenosis or neural foraminal narrowing. L2-3: A mild annular bulge is present, with ligamentum flavum hypertrophy and borderline central canal stenosis. L3-4: A mild annular bulge is present with facet overgrowth, mild central canal stenosis and mild bilateral neural foraminal narrowing. L4-5: A moderate annular bulge is present with moderate facet overgrowth, mild central canal stenosis or moderate bilateral neural foraminal narrowing. L5-S1: A moderate annular bulge is present with facet arthropathy, severe left and moderate right neural foraminal narrowing. IMPRESSION: 1. Multilevel degenerative changes are present, most pronounced at the L4-5 and L5-S1 levels. Reviewed, Interpreted and Dictated by Katie Molina MD Transcribed by Rosette Cabrera Authenticated and [facility]
--- OUTSIDE RECORDS SUMMARY | 2024-08-13 08:32 | XMS_ITS | Encounter Summary ---
Author Organization [employer] Address [address] [place] [address] Care Team Providers Care Drain Cleaner Name Role Phone Jayden Rowan MD Primary Care Provider [phone] Encounter Details Date Type Department Care Team (Late st Contact Info) Description 08/24/2021 Transcribed Document [facility] Family Medicine [facility] [place] [address] ProviderJason MD [address] [place] [address] Social History Tobacco Use Types [...] on filedocumented in this encounter Care Teams Drain Cleaner Relationship Specialty Start Date End Date Jayden Rowan MD [address] [place] [phone] PCP - General General Internal Medicine 07/05/22 documented as of this encounter
--- OUTSIDE RECORDS SUMMARY | 2024-08-13 08:32 | XMS_ITS | Encounter Summary ---
Author Organization [employer] Address [address] [place] [address] Care Team Providers Care Winder Fixer Name Role Phone Leanna Rivera MD Primary Care Provider [phone] Encounter Details Date Type Department Care Team (Late st Contact Info) Description 11/03/2020 Transcribed Document [facility] [place] [facility] Family Medicine [facility] [place] [address] ProviderJason MD [address] [place] [address] Social History Tobacco Use Types Packs/Day [...] MD - 11/03/2020 12:03 PM CDT [facility] [address] [place] [address] CECILE RAMIREZ DARREN :1955 Visit [...] Within 2 to 3 days Where: [address] [address]- [facility] (1) Allergies HYDROmorphone Imitrex Maxalt Zofran acetaminophen-HYDROcodone [...] these instructions at home: Medicines ??? Take gkjo-jjq-gdwjbfd and prescription medicines only as told by your health care provider. ??? Ask your health care provider if the medicine prescribed to you: ? Requires you to avoid driving or using heavy machinery. ? Can cause constipation. You may need to take these actions to prevent or treat constipation: ? Drink enough fluid to keep your urine pale yellow. ? Take jwjb-igt-zogxcoc or prescription medicines. ? Eat foods that [...] provider. Document Revised: 05/31/2019 Document Reviewed: 03/21/2019 [employer] Patient Education ?? 2020 [employer]. Emergency Awareness and Preventative Care STROKE [...] Assistance with quitting is available by contacting 7-042-QWPP-NOW. This is a free resource providing counseling, [...] was given the opportunity to ask questions. Patient/Development Technician Name: Patient/Development Technician Signature: Relationship to Patient: Clinician/Hospital Development Technician Signature: Please Provide a Telephone Number Where You Can Be Reached: Is it Permissible To Leave a Message? Date: Electronically signed by [facility], [facility] Conversion Work And Family Life Consultant Cerner at 06/09/2022 3:31 PM CDT documented in this encounter Plan of Treatment Not on file documented as of this encounter Visit Diagnoses Not on filedocumented in this encounter Care Teams Winder Fixer Relationship Specialty Start Date End Date Leanna Rivera MD [address] [place] [address] [place] [phone] PCP - General General Internal Medicine 07/05/22 documented as of this encounter
--- OUTSIDE RECORDS SUMMARY | 2024-08-13 08:32 | XMS_ITS | Encounter Summary ---
Author Organization [employer] Address [address] [facility] [place] [address] Care Team Providers Care Thoroughbred Horse Farm Manager Name Role Phone Jayden Rowan MD Primary Care Provider Encounter Details Date Type Department Care Team (Late st Contact Info) Description 10/19/2021 Transcribed Document [facility] Family Medicine [address] [place] [address] ProviderJason MD [address] [place] [address] Social History Tobacco Use Types [...] on filedocumented in this encounter Care Teams Thoroughbred Horse Farm Manager Relationship Specialty Start Date End Date Usery, Jayden R, MD [address] [place] [phone] PCP - General General Internal Medicine 07/05/22 documented as of this encounter
--- OUTSIDE RECORDS SUMMARY | 2024-08-13 08:32 | XMS_ITS | Encounter Summary ---
Author Organization [employer] Address [address] [place] [address] Care Team Providers Care Tearoom Host/Hostess Name Role Phone Jayden Rowan MD Primary Care Provider [phone] Encounter Details Date Type Department Care Team (Late st Contact Info) Description 10/02/2020 Transcribed Document [facility] Family Medicine [facility] [place] [address] ProviderJason MD [address] [place] [address] Social History Tobacco Use Types Packs/Day [...] EDT Performed On: 10/02/2020 12:18 EDT by oTri Rolon propagator Process Patient Disposition : Discharge Personal Belongings [...] - 10/02/2020 12:18 EDT Electronically signed by [facility], [facility] Conversion Superintendent Of Schools Cerner at 06/09/2022 3:29 PM CDT documented in this encounter Plan of Treatment Not on file documented as of this encounter Visit Diagnoses Not on filedocumented in this encounter Care Teams Tearoom Host/Hostess Relationship Specialty Start Date End Date Jayden Rowan MD [address] [place] [phone] PCP - General General Internal Medicine 07/05/22 documented as of this encounter
--- OUTSIDE RECORDS SUMMARY | 2024-08-13 08:32 | XMS_ITS | Encounter Summary ---
Author Organization [employer] Address [address] [place] [address] Care Team Providers Care Coloring Machine Operator Name Role Phone Jayden Rowan MD Primary Care Provider [phone] Encounter Details Date Type Department Care Team (Late st Contact Info) Description 11/03/2020 Transcribed Document [facility] Family Medicine [facility] [place] [address] ProviderJason MD [address] [place] [address] Social History Tobacco Use Types [...] Zendejas MD - 11/03/2020 10:54 AM CDT [place] Suicide Severity Rating Scale (C-SSRS) Entered On: 11/03/2020 11:16 EDT Performed On: 11/03/2020 11:14 EDT by BORIS METZ RN [place] Suicide Severity Rating Scale (C-SSRS) CSSRS Past [...] on filedocumented in this encounter Care Teams Coloring Machine Operator Relationship Specialty Start Date End Date Jayden Rowan MD [address] [place] [phone] PCP - General General Internal Medicine 07/05/22 documented as of this encounter
--- OUTSIDE RECORDS SUMMARY | 2024-08-13 08:32 | XMS_ITS | Encounter Summary ---
Author Organization [employer] Address [address] [place] [address] Care Team Providers Care Community Ambassador Name Role Phone Leanna Rivera MD Primary Care Provider [phone] Encounter Details Date Type Department Care Team (Late st Contact Info) Description 05/10/2021 Transcribed Document [facility] Radiology [address] [place] [address] Lisa Rivera MD [facility] [place] [address] Social History Tobacco Use Types Packs/Day Years [...] Pt is considering establishing care with painter and body mechanic apprentice but has not yet done so.. Review [...] EDT Height Source Stated Height Entry Format Pierce Height/Length, MACANESE (ft) 5 ft Height/Length MACANESE 3 Inch CLINICALHEIGHT 160.02 cm [place] Body Weight 52.02 kg Weight Source, ED Standing scale Weight Entry Format Pierce Weight Uruguayan lb 140 lb CLINICALWEIGHT 63.64 kg Body [...] Triage: ED C-SSRS: ED Clinical Reconciliation: ED world designer: fentaNYL: 100 mcg, IntraMuscular, 1-Time promethazine: 25 [...] with specialist Within 2 to 4 days front office specialist; JOSHUA MCNEAL Within 2 to 4 days One option for painter and body mechanic apprentice. Counseled: Patient, Regarding treatment plan. documented in this encounter Plan of Treatment Not on file documented as of this encounter Visit Diagnoses Not on filedocumented in this encounter Care Teams Community Ambassador Relationship Specialty Start Date End Date Leanna Rivera MD [address] [place] [phone] PCP - General General Internal Medicine 07/05/22 documented as of this encounter
--- OUTSIDE RECORDS SUMMARY | 2024-08-13 08:32 | XMS_ITS | Encounter Summary ---
Author Organization [employer] Address [address] [place] [address] Care Team Providers Care Hr Business Partner Name Role Phone Leanna Rivera MD Primary Care Provider [phone] Encounter Details Date Type Department Care Team (Late st Contact Info) Description 10/19/2021 Transcribed Document [facility] [place] [facility] [place] [address] ProviderJason MD [address] [place] [id number] Social History Tobacco Use Types Packs/Day Years [...] injections but next one not due until Nov. States this is her regular migraine. . [...] EDT Height Source Stated Height Entry Format [place] Height/Length, JAMAICAN (ft) 5 ft Height/Length JAMAICAN 3 Inch CLINICALHEIGHT 160.02 cm [place] Body Weight 52.02 kg Weight Source, ED Critical estimated dosing weight Weight Entry Format [place] Weight Scottish lb 136 lb CLINICALWEIGHT 61.82 kg Body [...] Return if worse.. Electronically signed by Tadeo [facility] Conversion K 9 Handler/ Deputy Cerner at 06/09/2022 3:26 PM CDT documented in this encounter Plan of Treatment Not on file documented as of this encounter Visit Diagnoses Not on filedocumented in this encounter Care Teams Hr Business Partner Relationship Specialty Start Date End Date Leanna Rivera MD [address] [place] [phone] PCP - General General Internal Medicine 07/05/22 documented as of this encounter
--- OUTSIDE RECORDS SUMMARY | 2024-08-13 08:33 | XMS_ITS | Patient Health Record ---
Author Organization [facility] Address [address] [place] [address] Care Team Providers Care Mailmaster Name Role Phone Livier Crane Primary Care Provider LIVIER Crane APRN Unavailable Unavailable Manpreet Lemus Unavailable [phone] Migration, Provider Unavailable Unavailable Allergies Allergen (clinical drug ingredient) Drug/Non Drug Allergy documented on EMR Reaction Allergy Type Onset Date Status PERCODAN (uncoded) hallunications Allergy Active ZOFRAN (uncoded) stomach upset Allergy Active hydromorphone Dilaudid vomiting Drug Allergy Act florecita morphine Morphine vomiting Drug Allergy Active Results Component Value Reference Range Notes LIPID PANEL, STANDARD (7600) Reviewed date:09/22/2023 01:50:40 PM Interpretation: Performing Lab:CB, [facility] [address]bm[address] [facility] Rob Hu Notes/Report: NON-FASTING; NON-FASTING; NON-FASTING; [...] LDL-C. Warren BEYER et al. ALLAN. 2013;310(19): 5029-7201 (http://education.[employer].CardStar/faq/FFF976) CHOL/HDLC RATIO 2.9 <5.0 (calc) NON HDL CHOLESTEROL 85 <130 mg/dL (calc) For patients with diabetes plus 1 major ASCVD risk factor, treating to a non-HDL-C goal of <100 mg/dL (LDL-C of <70 mg/dL) is considered a therapeutic option. COMPREHENSIVE METABOLIC PANE (15419) Reviewed date:09/22/2023 01:50:40 PM Interpretation: Performing Lab:CB, [employer] [address], [employer]EalkUG[address] Rob Hu Notes/Report: NON-FASTING; NON-FASTING; NON-FASTING; NON-FASTING; [...] Reviewed date:09/22/2023 01:50:40 PM Interpretation: Performing Lab:CB, [employer] [address], [employer] TrainingEfrnCM[address] Rob Hu Notes/Report: NON-FASTING; NON-FASTING; NON-FASTING; NON-FASTING; NON-FAST FASTING:YES FASTING: YES WHITE BLOOD CELL COUNT 7.9 3.8-10.8 Thousand/ uL RED BLOOD CELL COUNT 4.95 3.80-5.10 Million/uL HEMOGLOBIN 12.3 11.7-15.5 g/dL HEMATOCRIT 39.5 35.0-45.0 % MCV 79.8 80.0-100.0 fL MCH 24.8 27.0-33.0 pg MCHC 31.1 32.0-36.0 g/dL RDW 14.4 11.0-15.0 % PLATELET COUNT 236 140-400 Thousand/uL MPV 10.1 7.5-12.5 fL ABSOLUTE NEUTROPHILS 5230 6640-8503 cells/uL ABSOLUTE LYMPHOCYTES 4214 825-1898 cells/uL ABSOLUTE MONOCYTES 545 200-950 cells/uL ABSOLUTE EOSINOPHILS 300 15-500 cells/uL ABSOLUTE BASOPHILS 40 0-200 cells/uL NEUTROPHILS 66.2 LYMPHOCYTES 22.6 MONOCYTES 6.9 EOSINOPHILS 3.8 BASOPHILS 0.5 HEMOGLOBIN A1c (496) Reviewed date:09/22/2023 01:50:40 PM Interpretation: Performing Lab:YOLANDA [employer]Welia Healthe[address] [facility], [facility]ent[facility] HealthJxwvFH[address] Rob Hu Notes/Report: NON-FASTING; NON-FASTING; NON-FASTING; NON-FASTING; [...] change in test platforms from the Espino St[employer] Mason to the Ramila fuentes c503 may have shifted HbA1c results compared to historical results. Based on laboratory validation testing conducted at [facility], the Ramila platform relative to the Espino [...] Lab:CB, [facility] [address], Allan CrainDpatUL[address] Rob Hu Notes/Report: NON-FASTING; NON-FASTING; NON-FASTING; NON-FASTING; NON-FAST FASTING:YES FASTING: YES VITAMIN B12 002 119-4807 pg/mL Reason For Referral No Information Medications [...] review and pick correct strength-formulati on from Pepp[employer]orn options. If intended option is not shown, [...] review and pick correct strength-formulati on from [employer] options. If intended option is not shown, [...] Problem Status W/U Status Risk Notes Problem 162233857 Mixed hyperlipidemia (E78.2) Active confirmed Problem 645541224 Depression with anxiety (F41.8) Active confirmed Problem 282289808 COPD exacerbatio n (J44.1) Active confirmed Problem 88274589 RLS (restless le gs syndrome) (G25.81) Active confirmed Problem Type 2 diabetes mellitus (06644857) Type 2 diabetes mellitus (E11.9) Active confirmed Problem 316485978 Tobacco use disorder (F17.200) Active confirmed Problem 426084702 Migraine with status migrainosus, not intractable, unspecified migraine type (G43.901) Active confirmed Vital Signs Heart Rate 96 /min 09/21/2023 Temperature 97.8 degrees Fahrenheit 09/21/2023 Blood pressure diastolic 60 mm Hg 09/21/2023 Height 63 in 09/21/2023 Blood pressure systolic 112 mm Hg 09/21/2023 Weight 149.6 lbs 09/21/2023 BMI 26.5 kg/m2 09/21/2023 Encounters Encounter Location Date Provider Diagnosis [facility] [address] [place], [place] [address] 05/25/[address] [facility] [address] [place] [address] 08/21/2023 Manpreet Lemus COPD exacerbation J44.1 ; Wrist pain, right M25.531 ; Unspecified fall, initial encounter W19.XXXA and Unspecified place in unspecified non-institutional (private) residence as the place of occurrence of the external cause Y92.009 [facility] [address] [place] [address] 09/21/2023 Livier McNees Migraine with status migrainosus, not intractable, unspecified migraine type G43.901 ; Type 2 diabetes mellitus E11.9 ; B12 deficiency E53.8 ; Tremor R25.1 ; Depression with anxiety F41.8 ; Mixed hyperlipidemia E78.2 ; 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 ; Tobacco use disorder F17.200 and RLS (restless legs syndrome) G25.81 [facility] [address] [place] [address] 08/23/[address] [facility] [address] [place] [address] 08/23/[address] [facility] [address] [place] [address] 08/28/2023 Manpreet Besson Asymptomatic age-related postmenopausal state Z78.0 [facility] [address] [place] [address] 09/04/[address] [facility] [address] [place] [address] 09/11/2023 Manpreet Besson Acute cystitis witho ut hematuria N30.00 [facility] [address] [place] [address] 09/22/[address] [facility] [address] [place] [address] 10/09/[address] [facility] [address] [place] [address] 10/20/2023 Livier McNees Assessments Encounter Date Diagnosis [...] End Date [employer] D[employer] [address] [address] [place] [address] [id number] Cecile Escobedo Self - patient is the [...]
--- OUTSIDE RECORDS SUMMARY | 2024-08-13 08:33 | XMS_ITS | Encounter Summary ---
Author Organization [employer] Address [address] [place] [address] Care Team Providers Care Loader Demolder Name Role Phone Jayden Rowan MD Primary Care Provider [phone] Encounter Details Date Type Department Care Team (Late st Contact Info) Description 06/19/2019 Transcribed Document [facility] [place] [facility] [place] [address] ProviderJason MD [address] [place] [address] Social History Tobacco Use Types Packs/Day [...] On: 06/19/2019 21:03 EDT by Dottie Baltazar BRANCH SERVICE LEADER Triage Across the Room Chief Complaint : c/o headache and vomiting x 4 days, hx of same Triage Date/Time : 06/19/2019 21:03 EDT Dottie Baltazar RN - 06/19/2019 21:03 EDT DCP GENERIC CODE Tracking Acuity : 3 - Urgent Tracking [facility] Dottie Mistry RN - 06/19/2019 [...] morphine ; Type: Allergy ; Updated By: CONTRIBUTOR_SYSTEMYASIMN; Reviewed Date: 06/19/2019 21:06 EDT Zofran Estimated Onset Date: Unspecified ; Created By: Tenisha Curry Rn; Reaction Status: Active ; Category: Drug ; Substance: Zofran ; Type: Allergy ; Updated By: Tenisha Curry Rn; Reviewed Date: 06/19/2019 21:06 EDT Diagnosis Control ED (As Of: 06/19/2019 21:08:56 EDT) Problems(Active) Anxiety (SNOMED CT :89975770 ) Name of Problem: Anxiety ; Recorder: BOB PEARCE RN; Confirmation: Confirmed ; Classification: Medical ; Code: [id number] ; Contributor System: PowerChart ; Last Updated: 08/01/2013 19:25 EDT ; Life Cycle Date: 05/11/2013 ; Life Cycle Status: Active ; Vocabulary: SNOMED CT Appendectomy (SNOMED CT :148672262 ) Name of Problem: Appendectomy ; Recorder: BOB PEARCE RN; Confirmation: Confirmed ; Classification: Medical ; Code: [id number] ; Contributor System: PowerChart ; Last Updated: 08/06/2013 10:55 EDT ; Life Cycle Date: 05/11/2013 ; Life Cycle Status: Active ; Vocabulary: SNOMED CT Bladder (SNOMED CT :760456537 ) Name of Problem: Bladder ; Recorder: BOB PEARCE RN; Confirmation: Confirmed ; Classification: Medical ; Code: [id number] ; Contributor System: PowerChart ; Last Updated: 08/08/2013 13:51 EDT ; Life Cycle Date: 05/11/2013 ; Life Cycle Status: Active ; Vocabulary: SNOMED CT ; Comments: 05/11/2013 16:28 - BOB PEARCE RN bladder sling Cholecystectomy (SNOMED CT :40875693 ) Name of Problem: Cholecystectomy ; Recorder: BOB PEARCE RN; Confirmation: Confirmed ; Classification: Medical ; Code: 03157074 ; Contributor System: TrelliseChart ; Last Updated: 08/06/2013 10:53 EDT ; Life Cycle Date: 05/11/2013 ; Life Cycle Status: Active ; Vocabulary: SNOMED CT COPD (chronic obstructive pulmonary disease) (SNOMED CT :07356307 ) Name of Problem: COPD (chronic obstructive pulmonary disease) ; Recorder: BONNIE FUCHS RN; Confirmation: Confirmed ; Classification: Medical ; Code: 58364362 ; Contributor System: PowerChart ; Last Updated: 06/30/2014 10:41 EDT ; Life Cycle Date: 06/30/2014 ; Life Cycle Status: Active ; Vocabulary: SNOMED CT Depression (SNOMED CT :259431808 ) Name of Problem: Depression ; Recorder: BOB PEARCE RN; Confirmation: Confirmed ; Classification: Medical ; Code: 303971476 ; Contributor System: PowerChart ; Last Updated: 08/01/2013 19:25 EDT ; Life Cycle Date: 05/11/2013 ; Life Cycle Status: Active ; Vocabulary: SNOMED CT Diabetes mellitus (SNOMED CT :440871774 ) Name of Problem: Diabetes mellitus ; Recorder: Arabella Pineda RN; Confirmation: Confirmed ; Classification: Patient Stated ; Code: 518004285 ; Contributor System: TrelliseChart ; Last Updated: 07/09/2017 2:14 EDT ; Life Cycle Date: 07/09/2017 ; Life Cycle Status: Active ; Vocabulary: SNOMED CT GERD (gastroesophageal reflux disease) (SNOMED CT :517462077 ) Name of Problem: GERD (gastroesophageal reflux disease) ; Recorder: BONNIE FUCHS RN; Confirmation: Confirmed ; Classification: Medical ; Code: 685064095 ; Contributor System: PowerChart ; Last Updated: 06/30/2014 10:41 EDT ; Life Cycle Date: 06/30/2014 ; Life Cycle Status: Active ; Vocabulary: SNOMED CT High cholesterol (SNOMED CT :[id number] ) Name of Problem: High cholesterol ; Recorder: BOB PEARCE RN; Confirmation: Confirmed ; Classification: Medical ; Code: [id number] ; Contributor System: PressPad ; Last Updated: 08/01/2013 19:25 EDT ; Life Cycle Date: 05/11/2013 ; Life Cycle Status: Active ; Vocabulary: SNOMED CT Hysterectomy (SNOMED CT :478861581 ) Name of Problem: Hysterectomy ; Recorder: BOB PEARCE RN; Confirmation: Confirmed ; Classification: Medical ; Code: [id number] ; Contributor System: TrelliseChart ; Last Updated: 08/06/2013 10:54 EDT ; Life Cycle Date: 05/11/2013 ; Life Cycle Status: Active ; Vocabulary: SNOMED CT Migraine (SNOMED CT :52611385 ) Name of Problem: Migraine ; Recorder: BOB PEARCE RN; Confirmation: Confirmed ; Classification: Medical ; Code: 35466298 ; Contributor System: PressPad ; Last Updated: 08/01/2013 19:25 EDT ; Life Cycle Date: 05/11/2013 ; Life Cycle Status: Active ; Vocabulary: SNOMED CT Diagnoses(Active) Headache Date: 06/19/2019 ; Diagnosis Type: Reason For Visit ; Confirmation: Complaint of ; Clinical Dx: Headache ; Classification: Medical ; Clinical Service: Emergency medicine ; Code: PNED ; Probability: 0 ; Diagnosis Code: [id number] ED Height and Weight Height Source : Stated Height Entry Format : [place] Height, Feet : 5 ft(Converted to: 152 cm, 60 Inch) Height, Inches : 4 Inch(Converted to: 0 ft 4 Inch, 10.16 cm) Clinical Height : 162.56 cm Weight Source, ED : Critical estimated dosing weight Weight Entry Format : [place] Weight, Pounds : 172 lb Clinical Dosing Weight : 78.18 kg Body Surface Area (BSA) : 1.84 m2 Body Mass Index : 29.6 kg/m2 (HI) [place] Body Weight (IBW) : 54.3 kg Dottie [...] on filedocumented in this encounter Care Teams Loader Demolder Relationship Specialty Start Date End Date Jayden Rowan MD [address] [place] [phone] PCP - General General Internal Medicine 07/05/22 documented as of this encounter
--- OUTSIDE RECORDS SUMMARY | 2024-08-13 08:33 | XMS_ITS | Referral Summary ---
Author Organization [employer] Address [address] [place] [address] Care Team Providers Care Insurance Coder Name Role Phone Jayden Rowan MD Primary Care Provider [phone] Allergies Active Allergy Reactions Criticality Noted Date [...] Jean Carlos rded Speak language other than Emirati at home Not on file 03/10/2023 Want [...] A1C 6.7 % 07/05/2022 9:44 PM EDT [facility] Comment: Hemoglobin A1C levels are related to mean glucose during the preceding 2-3 months. Less than 7% demonstrates glycemic control in diabetic patients. Hemoglobin AlC % Suggested Diagnosis > or = 6.5 Diabetic 5.7 - 6.4 Prediabetic <5.7 Non-diabetic eAVG Glucose 145.59 mg/dL 07/05/2022 9:44 PM EDT [facility] Blood Venipuncture / Unknown 07/05/2022 12:26 PM EDT 07/05/2022 12:26 PM EDT us Fady Bates MD LAB BLOOD ORDERABLES Final Res ult [facility] [address] [phone] from Last 3 Months or Most Recently Relevant to Health Maintenance Insurance MEDICAID OF [place] [employer] MED[place] [place] Advance Directives For more information, please contact: [phone] Documents on File Type Date Recorded Patient Launderette Attendant Expl anation Advance Directives and Ramesh g Will 07/07/2022 7:11 AM * Full Code (Latest Code Status on File) Date Activated Date Inactivated Comments 07/07/2022 4:06 PM 07/08/2022 4:14 PM Care Teams Insurance Coder Relationship Specialty Start Date End Date Jayden Rowan MD [address] [place] [phone] PCP - General General Internal Medicine 07/05/22
--- OUTSIDE RECORDS SUMMARY | 2024-08-13 08:33 | XMS_ITS | Encounter Summary ---
Author Organization [employer] Address [address] [place] [address] Care Team Providers Care Journeyman Sheet Metal Worker Name Role Phone Jayden Rowan MD Primary Care Provider [phone] Encounter Details Date Type Department Care Team (Late st Contact Info) Description 02/06/2020 Transcribed Document [facility] [place] Medicine [facility] [place] [address] ProviderJason MD [address] [place] [address] Social History Tobacco Use Types Packs/Day [...] Jason Zendejas MD - 02/06/2020 2:02 PM SUPERVISING PRODUCER ED Discharge Entered On: 02/06/2020 14:03 EST [...] 02/06/2020 14:02 EST Electronically signed by Tadeo, [facility] Conversion Account Relationship Manager Cerner at 06/09/2022 3:27 PM CDT documented in this encounter Plan of Treatment Not on file documented as of this encounter Visit Diagnoses Not on filedocumented in this encounter Care Teams Journeyman Sheet Metal Worker Relationship Specialty Start Date End Date Jayden Rowan MD [address] [place] [phone] PCP - General General Internal Medicine 07/05/22 documented as of this encounter
--- OUTSIDE RECORDS SUMMARY | 2024-08-13 08:33 | XMS_ITS | Clinical Summary ---
Author Organization [employer] Address [address] [place] [address] Care Team Providers Care Road Design Draftsperson Name Role Phone Jayden Rowan MD Primary Care Provider [phone] Allergies Active Allergy Reactions Criticality Noted Date [...] Jean Carlos rded Speak language other than Malagasy at home Not on file 03/10/2023 Want [...] A1C 6.7 % 07/05/2022 9:44 PM EDT [facility] Comment: Hemoglobin A1C levels are related to mean glucose during the preceding 2-3 months. Less than 7% demonstrates glycemic control in diabetic patients. Hemoglobin AlC % Suggested Diagnosis > or = 6.5 Diabetic 5.7 - 6.4 Prediabetic <5.7 Non-diabetic eAVG Glucose 145.59 mg/dL 07/05/2022 9:44 PM EDT [facility] Blood Venipuncture / Unknown 07/05/2022 12:26 PM EDT 07/05/2022 12:26 PM EDT us Fady Bates MD LAB BLOOD ORDERABLES Final Res ult [facility] [address] [phone] from Last 3 Months or Most Recently Relevant to Health Maintenance Insurance [place] [employer] Advance Directives For more information, please contact: [phone] Documents on File Type Date Recorded Patient Parenting Skills Instructor Expl anation Advance Directives and Livin g Will 07/07/2022 7:11 AM * Full Code (Latest Code Status on File) Date Activated Date Inactivated Comments 07/07/2022 4:06 PM 07/08/2022 4:[address] Design Draftsperson Relationship Specialty Start Date End Date Jayden Rowan MD [address] [place] [phone] PCP - General General Internal Medicine 07/05/22
--- OUTSIDE RECORDS SUMMARY | 2024-08-13 08:33 | XMS_ITS | Encounter Summary ---
Author Organization [employer] Address [address] [place] [address] Care Team Providers Care School Fundraising Director Name Role Phone Jayden Rowan MD Primary Care Provider [phone] Encounter Details Date Type Department Care Team (Late st Contact Info) Description 06/19/2019 Transcribed Document [facility] [place] [facility] [place] [address] ProviderJason MD [address] [place] [address] Social History Tobacco Use Types Packs/Day [...] 11:14 PM CDT Electronically signed by Tadeo [facility] Conversion Wallpaper Consultant Cerner at 06/09/2022 3:29 PM CDT documented in this encounter Plan of Treatment Not on file documented as of this encounter Visit Diagnoses Not on filedocumented in this encounter Care Teams School Fundraising Director Relationship Specialty Start Date End Date Jayden Rowan MD [address] [place] [phone] PCP - General General Internal Medicine 07/05/22 documented as of this encounter
--- OUTSIDE RECORDS SUMMARY | 2024-08-13 08:33 | XMS_ITS | Encounter Summary ---
Author Organization [employer] Address [address] [place] [address] Care Team Providers Care Cigar Making Machine Operator Name Role Phone Leanna Rivera MD Primary Care Provider [phone] Encounter Details Date Type Department Care Team (Late st Contact Info) Description 09/05/2018 Transcribed Document [facility] Radiology 1 [place] [id number] Gali Garrett MD [facility] Dept [place] [address] Social History Tobacco Use Types Packs/Day Years [...] EDT Height Source Stated Height Entry Format [place] Height/Length, BAHAMIAN (ft) 5 ft Height/Length BAHAMIAN 4 Inch CLINICALHEIGHT 162.56 cm Dema Body Weight 54.3 kg Weight Source, ED Critical estimated dosing weight Weight Entry Format [place] Weight Paraguayan lb 162 lb CLINICALWEIGHT 73.64 kg Body [...] on filedocumented in this encounter Care Teams Cigar Making Machine Operator Relationship Specialty Start Date End Date Leanna Rivera MD [address] [place] [phone] PCP - General General Internal Medicine 07/05/22 documented as of this encounter
--- OUTSIDE RECORDS SUMMARY | 2024-08-13 08:33 | XMS_ITS | Encounter Summary ---
Author Organization [employer] Address [address] [place] [address] Care Team Providers Care Garage Door Service Technician Name Role Phone Jayden Rowan MD Primary Care Provider [phone] Encounter Details Date Type Department Care Team (Late st Contact Info) Description 03/04/2019 Transcribed Document [facility] [place] Family Medicine On [facility] of [facility] [place] [address] ProviderJason MD [address] [place] [address] Social History Tobacco Use Types Packs/Day Years Used Date Smoking Tobacco: Never Assessed Comments Unknown Sex and Gender Information Value Date Recorded Sex Assigned at Not on file Legal Sex Female 3:15 PM CDT Gender Identity Not on file Sexual Orientation Not on file documented as of this encounter Miscellaneous Notes * Cerner Conversion Note - Jason ProviderMD - 03/04/2019 1:08 AM BALANCER SCALE ED Discharge Entered On: 03/04/2019 1:09 EST [...] 03/04/2019 1:08 EST Electronically signed by Tadeo [facility] Conversion Collections Analyst Cerner at 06/09/2022 3:29 PM CDT documented in this encounter Plan of Treatment Not on file documented as of this encounter Visit Diagnoses Not on filedocumented in this encounter Care Teams Garage Door Service Technician Relationship Specialty Start Date End Date Jayden Rowan MD [address] [place] [phone] PCP - General General Internal Medicine 07/05/22 documented as of this encounter
--- OUTSIDE RECORDS SUMMARY | 2024-08-13 08:33 | XMS_ITS | Encounter Summary ---
Author Organization [employer] Address [address] [place] [address] Care Team Providers Care Litigator Name Role Phone Jayden Rowan MD Primary Care Provider [phone] Encounter Details Date Type Department Care Team (Late st Contact Info) Description 06/19/[address] [facility] [place] Medicine [facility] [place] [address] ProviderJason MD [address] [place] [address] Social History Tobacco Use Types Packs/Day [...] Zendejas MD - 06/19/2019 8:59 PM CDT Sasser Suicide Severity Rating Scale (C-SSRS) Entered On: 06/19/2019 21:09 EDT Performed On: 06/19/2019 21:09 EDT by Dottie Baltazar RN Sasser Suicide Severity Rating Scale (C-SSRS) CSSRS Past [...] on filedocumented in this encounter Care Teams Litigator Relationship Specialty Start Date End Date Jayden Rowan MD [address] [place] [phone] PCP - General General Internal Medicine 07/05/22 documented as of this encounter
--- OUTSIDE RECORDS SUMMARY | 2024-08-13 08:33 | XMS_ITS | Encounter Summary ---
Author Organization [employer] Address [address] [place] [address] Care Team Providers Care Dice Manager Name Role Phone Jayden Rowan MD Primary Care Provider [phone] Encounter Details Date Type Department Care Team (Late st Contact Info) Description 06/19/2019 Transcribed Document [facility] [place] [facility] [place] [address] ProviderJason MD [address] [place] [address] Social History Tobacco Use Types Packs/Day [...] On: 06/19/2019 23:20 EDT by Mark Olmedo, Wallpaper Embosser Helper Process Patient Disposition : Discharge Personal Belongings [...] on filedocumented in this encounter Care Teams Dice Manager Relationship Specialty Start Date End Date Jayden Rowan MD [address] [place] [phone] PCP - General General Internal Medicine 07/05/22 documented as of this encounter
--- OUTSIDE RECORDS SUMMARY | 2024-08-13 08:33 | XMS_ITS | Encounter Summary ---
Author Organization [employer] Address [address] [place] [address] Care Team Providers Care Cash Register Operator Name Role Phone Leanna Rivera MD Primary Care Provider [phone] Encounter Details Date Type Department Care Team (Late st Contact Info) Description 05/23/2018 Transcribed Document [facility] [place] Family Medicine [facility] [place] [address] ProviderJason MD [address] [place] [address] Social History Tobacco Use Types Packs/Day [...] Zendejas MD - 05/23/2018 6:05 PM CDT [address] [address] Patient Information Name: CECILE RAMIREZ Age: 63 Years Date of : 1955 Arrival Time: 05/23/2018 17:19:00 Diagnosis Migraine Primary Care Physician: LEANNA RIVERA MD-INT Provider Information Primary Provider: TONEY JORGENSEN MD Secondary Provider: CECILE RAMIREZ has been given the following list of patient education materials, prescriptions and follow-up instructions: Follow-up Instructions: With: Address: When: LEANNA RIVERA [address], [address] [place] [id number] Business (1) Within 2 to 3 days [...] these instructions at home: Medicines ??? Take ebgz-yjv-gqrdcix and prescription medicines only as told by your health care provider. ??? Do notdrive or use heavy machinery while taking prescription pain medicine. ??? To prevent or treat constipation while you are taking prescription pain medicine, your health care provider may recommend that you: ? Drink enough fluid to keep your urine clear or pale yellow. ? Take yquc-mwu-ktpiopa or prescription medicines. ? Eat foods that [...] 02/06/2006 Document Revised: 08/26/2016 Document Reviewed: 07/25/2016 [employer] Patient Education ? 2017 [employer] Allergies: acetaminophen-HYDROcodone; Maxalt; Imitrex; Zofran; HYDROmorphone; [...] verify that CECILE RAMIREZ was seen at [facility] Emergency Department on ,05/23/2018 18:05:18. This [...] along the way. As a healthcare provider, [facility] recommends that you stop smoking. Assistance with quitting is available by contacting 2-390-PCFH-NOW. This is a free resource providing counseling, [...] Electronic Communications Privacy Act 18 U.S.C. ???Sections 9621-4945,?? and contain information intended for the specified [...] Be sure to sign up for the [employer] patient portal, which gives you 12/09 access to your medical information ??? including these discharge instructions ??? using your computer, smartphone, or tablet. Just go to [employer] to get started. Questions? Call . Acknowledgment [...] on filedocumented in this encounter Care Teams Cash Register Operator Relationship Specialty Start Date End Date Leanna Rivera MD [address] [place] [address] [phone] PCP - General General Internal Medicine 07/05/22 documented as of this encounter
--- OUTSIDE RECORDS SUMMARY | 2024-08-13 08:33 | XMS_ITS | Encounter Summary ---
Author Organization [employer] Address [address] [place] [address] Care Team Providers Care Residential Gas Heat Technician Name Role Phone Jayden Rowan MD Primary Care Provider [phone] Encounter Details Date Type Department Care Team (Late st Contact Info) Description 06/10/2020 Transcribed Document [facility] [place] Family Medicine [facility] [place] [address] ProviderJason MD [address] [place] [address] Social History Tobacco Use Types [...] filedocumented in this encounter Care Teams Residential Gas Heat Technician Relationship Specialty Start Date End Date Jayden Rowan MD [address] [place] [phone] PCP - General General Internal Medicine 07/05/22 documented as of this encounter
--- OUTSIDE RECORDS SUMMARY | 2024-08-13 08:33 | XMS_ITS | Encounter Summary ---
Author Organization [employer] Address [address] [place] [address] Care Team Providers Care Water/Wastewater Project Manager Name Role Phone Jayden Rowan MD Primary Care Provider [phone] Encounter Details Date Type Department Care Team (Late st Contact Info) Description 04/08/2018 Transcribed Document [facility] [place] [facility] [place] [address] ProviderJason MD [address] [place] [address] Social History Tobacco Use Types Packs/Day [...] Jason Zendejas MD - 04/08/2018 3:24 PM HYPOID GEAR GENERATOR Patient: CECILE RAMIREZ Age: 63 years Sex: [...] route. There was no reported trauma. Our Insurance Special Agent has spoken with her [id number]. The patient has reportedly been stating that [...] Fall Risk Assessment: ED Clinical Reconciliation: ED guidance adviser: Normal Saline Flush: 10 mL, IV Push, [...] % 29.4 % Lymph # 2.57 x10(3)/uL Knott % 6.7 % Knott # 0.59 K/uL Eos % 3.3 % Eos # 0.29 x10(3)/uL Baso % 0.6 % Baso # 0.05 x10(3)/uL Slide Review No IG# 0.04 x10(3)/uL IG% 0.50 % PT 10.0 Second(s) INR 0.9 Urine Type U CleanCatch Urine Color Yellow Urine Appearance Clear Urine Specific [place] 1.007 Urine pH Dipstick 6.5 Urine Leukocyte [...] Radiology results: Radiology Results (Last 48 hours) [id number] -- 04/08/2018 15:14 CT Head WO (04/08/2018 [...] Stable. Counseled: Patient, Family. Electronically signed by [facility], [facility] Conversion Puppet Maker Cerner at 06/09/2022 3:28 PM CDT documented in this encounter Plan of Treatment Not on file documented as of this encounter Visit Diagnoses Not on filedocumented in this encounter Care Teams Water/Wastewater Project Manager Relationship Specialty Start Date End Date Jayden Rowan MD [address] [place] [phone] PCP - General General Internal Medicine 07/05/22 documented as of this encounter
--- OUTSIDE RECORDS SUMMARY | 2024-08-13 08:33 | XMS_ITS | Encounter Summary ---
Author Organization [employer] Address [address] [place] [address] Care Team Providers Care Judo Instructor Name Role Phone Jayden Rowan MD Primary Care Provider [phone] Encounter Details Date Type Department Care Team (Late st Contact Info) Description 06/20/2018 Transcribed Document [facility] [place] [facility] [place] [address] ProviderJason MD [address] [place] [address] Social History Tobacco Use Types Packs/Day [...] Late entry - Fall about 1 hour STAIN SPRAYER. C/O shoulder and wrist pain Chung Wasserman, Director Emergency Services - 06/20/2018 5:28 EDT DCP GENERIC CODE Tracking Acuity : 4 - Non - Urgent Tracking Group : [facility] ED ChittendenChung Wilder, Director Emergency Services - 06/20/2018 5:28 [...] 06/20/2018 05:32:56 EDT) Problems(Active) Anxiety (SNOMED CT :39369059 ) Name of Problem: Anxiety ; Recorder: BOB PEARCE RN; Confirmation: Confirmed ; Classification: Medical ; Code: [id number] ; Contributor System: PowerChart ; Last Updated: 08/01/2013 19:25 EDT ; Life Cycle Date: 05/11/2013 ; Life Cycle Status: Active ; Vocabulary: SNOMED CT Appendectomy (SNOMED CT :766720414 ) Name of Problem: Appendectomy ; Recorder: BOB PEARCE RN; Confirmation: Confirmed ; Classification: Medical ; Code: [id number] ; Contributor System: PowerChart ; Last Updated: 08/06/2013 10:55 EDT ; Life Cycle Date: 05/11/2013 ; Life Cycle Status: Active ; Vocabulary: SNOMED CT Bladder (SNOMED CT :154283019 ) Name of Problem: Bladder ; Recorder: BOB PEARCE RN; Confirmation: Confirmed ; Classification: Medical ; Code: [id number] ; Contributor System: PowerChart ; Last Updated: 08/08/2013 13:51 EDT ; Life Cycle Date: 05/11/2013 ; Life Cycle Status: Active ; Vocabulary: SNOMED CT ; Comments: 05/11/2013 16:28 - BOB PEARCE RN bladder sling Cholecystectomy (SNOMED CT :50033442 ) Name of Problem: Cholecystectomy ; Recorder: BOB PEARCE RN; Confirmation: Confirmed ; Classification: Medical ; Code: [id number] ; Contributor System: PowerChart ; Last Updated: 08/06/2013 10:53 EDT ; Life Cycle Date: 05/11/2013 ; Life Cycle Status: Active ; Vocabulary: SNOMED CT COPD (chronic obstructive pulmonary disease) (SNOMED CT :53537731 ) Name of Problem: COPD (chronic obstructive pulmonary disease) ; Recorder: BONNIE FUCHS RN; Confirmation: Confirmed ; Classification: Medical ; Code: [id number] ; Contributor System: GoodyTagChart ; Last Updated: 06/30/2014 10:41 EDT ; Life Cycle Date: 06/30/2014 ; Life Cycle Status: Active ; Vocabulary: SNOMED CT Depression (SNOMED CT :540318936 ) Name of Problem: Depression ; Recorder: BOB PEARCE RN; Confirmation: Confirmed ; Classification: Medical ; Code: 331091556 ; Contributor System: PowerChart ; Last Updated: 08/01/2013 19:25 EDT ; Life Cycle Date: 05/11/2013 ; Life Cycle Status: Active ; Vocabulary: SNOMED CT Diabetes mellitus (SNOMED CT :823742510 ) Name of Problem: Diabetes mellitus ; Recorder: Arabella Pineda RN; Confirmation: Confirmed ; Classification: Patient Stated ; Code: 534991504 ; Contributor System: PowerChart ; Last Updated: 07/09/2017 2:14 EDT ; Life Cycle Date: 07/09/2017 ; Life Cycle Status: Active ; Vocabulary: SNOMED CT GERD (gastroesophageal reflux disease) (SNOMED CT :816696026 ) Name of Problem: GERD (gastroesophageal reflux disease) ; Recorder: BONNIE FUCHS RN; Confirmation: Confirmed ; Classification: Medical ; Code: [id number] ; Contributor System: PowerChart ; Last Updated: 06/30/2014 10:41 EDT ; Life Cycle Date: 06/30/2014 ; Life Cycle Status: Active ; Vocabulary: SNOMED CT High cholesterol (SNOMED CT :[id number] ) Name of Problem: High cholesterol ; Recorder: BOB PEARCE RN; Confirmation: Confirmed ; Classification: Medical ; Code: [id number] ; Contributor System: Business Lab ; Last Updated: 08/01/2013 19:25 EDT ; Life Cycle Date: 05/11/2013 ; Life Cycle Status: Active ; Vocabulary: SNOMED CT Hysterectomy (SNOMED CT :310459136 ) Name of Problem: Hysterectomy ; Recorder: BOB PEARCE RN; Confirmation: Confirmed ; Classification: Medical ; Code: [id number] ; Contributor System: Business Lab ; Last Updated: 08/06/2013 10:54 EDT ; Life Cycle Date: 05/11/2013 ; Life Cycle Status: Active ; Vocabulary: SNOMED CT Migraine (SNOMED CT :01362955 ) Name of Problem: Migraine ; Recorder: BOB PEARCE RN; Confirmation: Confirmed ; Classification: Medical ; Code: 61988762 ; Contributor System: Business Lab ; Last Updated: 08/01/2013 19:25 EDT ; Life Cycle Date: 05/11/2013 ; Life Cycle Status: Active ; Vocabulary: SNOMED CT Diagnoses(Active) Shoulder injury - Minor Date: 06/20/2018 ; Diagnosis Type: Reason For Visit ; Confirmation: Complaint of ; Clinical Dx: Shoulder injury - Minor ; Classification: Medical ; Clinical Service: Emergency medicine ; Code: PNED ; Probability: 0 ; Diagnosis Code: [id number] ED Height and Weight Height Source : Estimated Height Entry Format : [place] Height, Feet : 5 ft(Converted to: 152 cm, 60 Inch) Height, Inches : 6 Inch(Converted to: 0 ft 6 Inch, 15.24 cm) Clinical Height : 167.64 cm Weight Source, ED : Stated [place] Body Weight (IBW) : 58.88 kg Chung Wasserman, Director Emergency Services - 06/20/2018 5:28 EDT Estimated Weight Type of Weight Measurement Est : [place] Weight, est lb : 150 lb(Converted to: 68 kg) Weight, est oz : 0 oz Estimated Clinical Dosing Weight : 68.18 kg Chung Wasserman, Director Emergency Services - 06/20/2018 5:28 EDT Electronically signed by [facility], [facility] Conversion Interior Decorator Painting Cerner at 06/09/2022 3:27 PM CDT documented in this encounter Plan of Treatment Not on file documented as of this encounter Visit Diagnoses Not on filedocumented in this encounter Care Teams Judo Instructor Relationship Specialty Start Date End Date Jayden Rowan MD [address] [place] [phone] PCP - General General Internal Medicine 07/05/22 documented as of this encounter
--- OUTSIDE RECORDS SUMMARY | 2024-08-13 08:33 | XMS_ITS | Encounter Summary ---
Author Organization [employer] Address [address] [place] [address] Care Team Providers Care Home Health Attendant Name Role Phone Jayden Rowan MD Primary Care Provider [phone] Encounter Details Date Type Department Care Team (Late st Contact Info) Description 02/06/2020 Transcribed Document [facility] [place] [facility] [place] [address] [place] [address] ProviderJason MD [address] [place] [address] Social History Tobacco Use Types [...] - Jason ProviderMD - 02/06/2020 1:15 PM COMMUTATOR OPERATOR Broset Violence Assessment Entered On: 02/06/2020 13:24 EST Performed On: 02/06/2020 13:20 EST by RACHAEL QUINTANA RN Broset Violence Assessment Broset Violence Checklist of Symptoms : None Broset Violence Symptoms Subtotal : 0 Broset Violence Symptoms Indicator : Low risk (0) Broset Interventions : [place] precautions for safety used RACHAEL QUINTANA RN - 02/06/2020 13:20 EST Electronically signed by Tadeo [facility] Conversion Tiltrotor Crew Chief Cerner at 06/09/2022 3:30 PM CDT documented in this encounter Plan of Treatment Not on file documented as of this encounter Visit Diagnoses Not on filedocumented in this encounter Care Teams Home Health Attendant Relationship Specialty Start Date End Date Jayden Rowan MD [address] [place] [phone] PCP - General General Internal Medicine 07/05/22 documented as of this encounter
--- OUTSIDE RECORDS SUMMARY | 2024-08-13 08:33 | XMS_ITS | Encounter Summary ---
Author Organization [employer] In [employer] Address [address] [place] [address] Care Team Providers Care Potato Chip Fryer Name Role Phone Leanna Rivera MD Primary Care Provider [phone] Encounter Details Date Type Department Care Team (Late st Contact Info) Description 10/02/2020 Transcribed Document [facility] [place] [facility] [place] [address] ProviderJason MD [address] [place] [address] Social History Tobacco Use Types Packs/Day [...] [place] [facility] [address] [place] [address] CECILE RAMIREZ DARREN :1955 Visit [...] Within 2 to 3 days Where: [address] [place] [address] [address] [place] [address] Business (1) Allergies HYDROmorphone Imitrex Maxalt Zofran [...] these instructions at home: Medicines ??? Take fkmf-ola-xbzurpz and prescription medicines only as told by your health care provider. ??? Ask your health care provider if the medicine prescribed to you: ? Requires you to avoid driving or using heavy machinery. ? Can cause constipation. You may need to take these actions to prevent or treat constipation: ? Drink enough fluid to keep your urine pale yellow. ? Take fxwy-qbv-yctkdjg or prescription medicines. ? Eat foods that [...] provider. Document Revised: 05/31/2019 Document Reviewed: 03/21/2019 [employer] Patient Education ?? 2020 [employer]. Emergency Awareness and Preventative Care STROKE [...] Assistance with quitting is available by contacting 3-263-SUKB-NOW. This is a free resource providing counseling, [...] was given the opportunity to ask questions. Patient/Welder Plastic Name: Patient/Welder Plastic Signature: Relationship to Patient: Clinician/Hospital Welder Plastic Signature: Please Provide a Telephone Number Where You Can Be Reached: Is it Permissible To Leave a Message? Date: documented in this encounter Plan of Treatment Not on file documented as of this encounter Visit Diagnoses Not on filedocumented in this encounter Care Teams Potato Chip Fryer Relationship Specialty Start Date End Date Leanna Rivera MD [address] [place] [address] [place] [phone] PCP - General General Internal Medicine 07/05/22 documented as of this encounter
--- OUTSIDE RECORDS SUMMARY | 2024-08-13 08:33 | XMS_ITS | Encounter Summary ---
Author Organization [employer] Address [address] [place] [address] Care Team Providers Care Slitting Machine Operator Helper Name Role Phone Leanna Rivera MD Primary Care Provider [phone] Encounter Details Date Type Department Care Team (Late st Contact Info) Description 04/30/2019 Transcribed Document [facility] [place] [facility] [place] [address] ProviderJason MD [address] [place] [address] Social History Tobacco Use Types Packs/Day [...] MD - 04/30/2019 2:40 PM CDT [facility] [address] [place] [address] CECILE RAMIREZ DARREN :1955 Visit [...] When Within 2 to 3 days Where: [address] [place] [address] [address] [place] [address]- Business (1) Allergies HYDROmorphone Imitrex [...] these instructions at home: Medicines ??? Take aqdk-ztg-upbqbso and prescription medicines only as told by your health care provider. ??? Do not drive or use heavy machinery while taking prescription pain medicine. ??? To prevent or treat constipation while you are taking prescription pain medicine, your health care provider may recommend that you: ? Drink enough fluid to keep your urine clear or pale yellow. ? Take xqax-xsg-jxbcmfr or prescription medicines. ? Eat foods that [...] 02/06/2006 Document Revised: 08/26/2016 Document Reviewed: 07/25/2016 [employer] Patient Education ?? 2019 [employer] Emergency Awareness and Preventative Care STROKE [...] was given the opportunity to ask questions. Patient/Fitness Technician Name: Patient/Fitness Technician Signature: Relationship to Patient: Clinician/Hospital Fitness Technician Signature: Please Provide a Telephone Number Where You Can Be Reached: Is it Permissible To Leave a Message? Date: documented in this encounter Plan of Treatment Not on file documented as of this encounter Visit Diagnoses Not on filedocumented in this encounter Care Teams Slitting Machine Operator Helper Relationship Specialty Start Date End Date Leanna Rivera MD [address] [place] [phone] PCP - General General Internal Medicine 07/05/22 documented as of this encounter
--- OUTSIDE RECORDS SUMMARY | 2024-08-13 08:33 | XMS_ITS | Encounter Summary ---
Author Organization [employer] Address [address] [place] [address] Care Team Providers Care Merchandise Flow Manager Name Role Phone Jayden Rowan MD Primary Care Provider [phone] Encounter Details Date Type Department Care Team (Late st Contact Info) Description 02/06/2020 Transcribed Document [facility] [place] [facility] [place] [address] ProviderJason MD [address] [place] [address] Social History Tobacco Use Types Packs/Day [...] Jason Zendejas MD - 02/06/2020 1:15 PM CLOTHING PATTERNMAKER [place] Suicide Severity Rating Scale (C-SSRS) Entered On: 02/06/2020 13:24 EST Performed On: 02/06/2020 13:20 EST by RACHAEL QUINTANA RN [place] Suicide Severity Rating Scale (C-SSRS) CSSRS Past Month Wish to be : No CSSRS Past Month Suicidal Thoughts : No CSSRS Lifetime Suicide Behavior : No Suicide Severity Rating Score : 0 Suicide Severity Rating : No Additional Care Required at this time RACHAEL QUINTANA RN - 02/06/2020 13:20 EST Electronically signed by Tadeo [facility] Conversion Wagon Drill Operator Cerner at 06/09/2022 3:31 PM CDT documented in this encounter Plan of Treatment Not on file documented as of this encounter Visit Diagnoses Not on filedocumented in this encounter Care Teams Merchandise Flow Manager Relationship Specialty Start Date End Date Jayden Rowan MD [address] [place] [phone] PCP - General General Internal Medicine 07/05/22 documented as of this encounter
--- OUTSIDE RECORDS SUMMARY | 2024-08-13 08:34 | XMS_ITS | Encounter Summary ---
Author Organization [employer] Address [address] [place] [address] Care Team Providers Care Finish Painter Name Role Phone Jayden Rowan MD Primary Care Provider Encounter Details Date Type Department Care Team (Late st Contact Info) Description 08/11/2020 Transcribed Document [facility] [place] [facility] [place] [address] ProviderJason MD [address] [place] [address] Social History Tobacco Use Types [...] form. Electronically signed by Jolie Piedra Conversion Building Construction Professor Cerner at 06/09/2022 3:30 PM CDT documented in this encounter Plan of Treatment Not on file documented as of this encounter Visit Diagnoses Not on filedocumented in this encounter Care Teams Finish Painter Relationship Specialty Start Date End Date Jayden Rowan MD [address] [place] [phone] PCP - General General Internal Medicine 07/05/22 documented as of this encounter
--- OUTSIDE RECORDS SUMMARY | 2024-08-13 08:34 | XMS_ITS | Encounter Summary ---
Author Organization [employer] Address [address] [place] [address] Care Team Providers Care Bulb Filler Name Role Phone Jayden Rowan MD Primary Care Provider [phone] Encounter Details Date Type Department Care Team (Late st Contact Info) Description 06/26/2020 Transcribed Document [facility] [place] [facility] [place] [address] ProviderJason MD [address] [place] [address] Social History Tobacco Use Types [...] Zendejas MD - 06/26/2020 3:26 PM CDT [place] Suicide Severity Rating Scale (C-SSRS) Entered On: 06/26/2020 16:32 EDT Performed On: 06/26/2020 16:31 EDT by Tori Rolon RN [place] Suicide Severity Rating Scale (C-SSRS) CSSRS Past [...] on filedocumented in this encounter Care Teams Bulb Filler Relationship Specialty Start Date End Date Jayden Rowan MD [address] [place] [phone] PCP - General General Internal Medicine 07/05/22 documented as of this encounter
--- OUTSIDE RECORDS SUMMARY | 2024-08-13 08:34 | XMS_ITS | Encounter Summary ---
Author Organization [employer] Address [address] [place] [address] Care Team Providers Care Animal Stunner Name Role Phone Jayden Rowan MD Primary Care Provider [phone] Encounter Details Date Type Department Care Team (Late st Contact Info) Description 08/11/2020 Transcribed Document [facility] [place] [facility] [place] [address] ProviderJason MD [address] [place] [address] Social History Tobacco Use Types Packs/Day [...] On: 08/11/2020 14:02 EDT by RACHAEL QUINTANA, special education math teacher Process Patient Disposition : Discharge Personal Belongings [...] - 08/11/2020 14:13 EDT Electronically signed by [facility] Conversion Siene Maker Cerner at 06/09/2022 3:31 PM CDT documented in this encounter Plan of Treatment Not on file documented as of this encounter Visit Diagnoses Not on filedocumented in this encounter Care Teams Animal Stunner Relationship Specialty Start Date End Date Jayden Rowan MD [address] [place] [phone] PCP - General General Internal Medicine 07/05/22 documented as of this encounter
--- OUTSIDE RECORDS SUMMARY | 2024-08-13 08:34 | XMS_ITS | Encounter Summary ---
Author Organization [employer] Address [address] [place] [address] Care Team Providers Care Sander And Polisher Name Role Phone Jayden Rowan MD Primary Care Provider [phone] Encounter Details Date Type Department Care Team (Late st Contact Info) Description 06/26/2020 Transcribed Document [facility] [place] [address] ProviderJason MD [address] [place] [address] Social History Tobacco Use Types Packs/Day [...] On: 06/26/2020 17:12 EDT by Tori Rolon pencil sorter Process Patient Disposition : Discharge Personal Belongings [...] - 06/26/2020 17:12 EDT Electronically signed by [facility] Conversion Director Of Federal Sales Cerner at 06/09/2022 3:27 PM CDT documented in this encounter Plan of Treatment Not on file documented as of this encounter Visit Diagnoses Not on filedocumented in this encounter Care Teams Sander And Polisher Relationship Specialty Start Date End Date Jayden Rowan MD [address] [place] [phone] PCP - General General Internal Medicine 07/05/22 documented as of this encounter
== END 2024-08-13 23:59 | disposition home or self-care (01) ==
LOC: RAD 08:30
PROVIDERS: PCP Nurse Practitioner Family; Visit Provider Nurse Practitioner Family
DX: M47.816 Spondylosis without myelopathy or radiculopathy, lumbar region (principal); M47.817 Spondylosis without myelopathy or radiculopathy, lumbosacral region
CPT/HCPCS: 72148

== ENCOUNTER 2024-08-21 08:12 | Day surgery (SDC) | payer MEDICARE, MEDICAID, SELFPAY ==
[2024-08-14 14:46] VITALS: BMI 25.4
[2024-08-21] MEDS: LACTATED RINGERS 1000ML 1,000 ML 50 ML IV (09:11)
[2024-08-21 09:12] VITALS: BP 119/66; PULSE 75; RESP 18; TEMP 36.2; O2SAT 97
[2024-08-21 09:21] LABS: POC Glucose,Bedside 110 (70-110)
--- NOTE | 2024-08-21 10:07 | P.PNANES_ITS ---
[facility] Disclaimer: The information contained in this section may have been updated after the patient was seen, as this information can be updated by other users. Medical History E-coli UTI Encounter for hepatitis C screening test for low risk patient Screening for HIV (human immunodeficiency virus) Encounter to establish care Allergic reaction to chemical substance Urticaria Right otitis media Viral respiratory illness Wheezing Migraine headache Closed fracture of right distal radius MDD (major depressive disorder) Mood disorder Sprain of right wrist Episodic migraine Acute UTI Back pain Allergic reaction Chest pain at rest Back pain Chest pain Chest pain Indigestion Atypical chest pain Seizure disorder Tremor Hernia Urinary incontinence, mixed GERD (gastroesophageal reflux disease) Anxiety and depression Type 2 diabetes mellitus COPD (chronic obstructive pulmonary disease) Hyperlipidemia Surgical History History of bladder surgery H/O hernia repair H/O: hysterectomy History of cholecystectomy Hx of appendectomy H/O neck surgery Family History Other Cancer Diabetes Social History Smoking Status: Current every day smoker alcohol intake: never substance use type: denies use current occupational status: other Travel in the last 8 weeks?: None household members: significant other housing: house marital status: caffeine: Yes Have you lived/traveled outside US in past 30 days?: No Contact w/someone who lives/traveled outside US past 30 days?: No Exposure to someone with infectious disease in past 14 days?: No Do you have a fever (greater than 100.4 F or 38 C)?: No Have you tested positive for COVID-19?: No Exposed to someone with COVID-19 in past 14 days?: No Do you have a sore throat?: No Do you have a cough?: No Do you have any weakness?: No Do you have any diarrhea?: No Are you experiencing any unusual bleeding?: No Do you have any muscle aches/pain?: No Do you have any abdominal pain?: No Are you experiencing loss of taste or smell?: No [facility] Anesthesia Checklist Patient Identification Patient Identification: Arm Band Structural Data Admitted From: Home Planned Operative Procedure/s: EGD/Colonoscopy Consent for Planned Operative Procedure(s) Verified: Yes Verified Documents: Surgical Consent and History and Physical NPO Status Verified Time NPO: 00:00 Additional verifications Anesthesia Reactions: No Airway Assessment Mallampati Score:: Class II C-Spine Mobility Assessed: Yes TMJ Mobility Assessed: Yes Dentition: Edentulous Neurological Assessment Level of Consciousness: Awake, Alert and Appropriate Anesthesia Plan Anesthesia Risk discussed: Yes Anesthesia Plan: Verified ASA Class: III Anesthesia Type: MAC Preoperative Comments Pre-Operative Comments: Pt has hx of migraines and c/o severe migraine in preop. Fentanyl 50 mcg given IV and pulse ox applied.
--- NOTE | 2024-08-21 10:22 | P.HP_ITS ---
History of Present Illness *Admission Date: 08/21/24 *Reason for visit:: Dyspepsia/abdominal pain, nausea, vomiting and diarrhea *History of present illness: Mrs. Escobedo is a 69-year-old female who is here for diagnostic EGD and colonoscopy. The patient has had nausea, vomiting, bloating, heartburn and generalized abdominal pain. She also has had diarrhea with urgency. The examination is deemed medically necessary for diagnostic EGD and colonoscopy. The patient has been seen, interviewed and examined prior to the procedure by both myself and the anesthesia provider. [facility] Disclaimer: The information contained in this section may have been updated after the patient was seen, as this information can be updated by other users. Medical History (Updated 08/21/24 @ 10:24 by Tye Leung II, MD) E-coli UTI Encounter for hepatitis C screening test for low risk patient Screening for HIV (human immunodeficiency virus) Encounter to establish care Allergic reaction to chemical substance Urticaria Right otitis media Viral respiratory illness Wheezing Migraine headache Closed fracture of right distal radius MDD (major depressive disorder) Mood disorder Sprain of right wrist Episodic migraine Acute UTI Back pain Allergic reaction Chest pain at rest Back pain Chest pain Chest pain Indigestion Atypical chest pain Seizure disorder Tremor Hernia Urinary incontinence, mixed GERD (gastroesophageal reflux disease) Anxiety and depression Type 2 diabetes mellitus COPD (chronic obstructive pulmonary disease) Hyperlipidemia Surgical History History of bladder surgery H/O hernia repair H/O: hysterectomy History of cholecystectomy Hx of appendectomy H/O neck surgery Family History Other Cancer Diabetes Social History Smoking Status: Current every day smoker alcohol intake: never substance use type: denies use current occupational status: other Travel in the last 8 weeks?: None household members: significant other housing: house marital status: caffeine: Yes Have you lived/traveled outside US in past 30 days?: No Contact w/someone who lives/traveled outside US past 30 days?: No Exposure to someone with infectious disease in past 14 days?: No Do you have a fever (greater than 100.4 F or 38 C)?: No Have you tested positive for COVID-19?: No Exposed to someone with COVID-19 in past 14 days?: No Do you have a sore throat?: No Do you have a cough?: No Do you have any weakness?: No Do you have any diarrhea?: No Are you experiencing any unusual bleeding?: No Do you have any muscle aches/pain?: No Do you have any abdominal pain?: No Are you experiencing loss of taste or smell?: No Other Medical History Have you received the Flu Vaccine for this season: No Have you received the Pneumonia Vaccine: Yes Review of Systems Review of Systems Review of systems (narrative): Negative *Cardiovascular Comments: Negative *Gastrointestinal Comments: Negative *Genitourinary Comments: Negative *Musculoskeletal Comments: Negative *Neurologic Comments: Negative Meds Home Medications and Allergies Home Medications ?Medication ?Instructions ?Recorded ?Confirmed ?Type alcohol swabs (DropSafe Alcohol 1 pad topical DIREC ALONDRA 10/30/23 08/14/24 History Prep Pads) blood sugar diagnostic (Accu-Chek #10 ea 10/30/2307/22 History Guide test strips) blood-glucose meter (Accu-Chek #1 ea 10/30/23 08/14/24 History Guide Me Glucose Meter) ipratropium 0.5 mg-albuterol 3 mg 3 ml inhalation Q4-6 H PRN 10/30/23 08/14/24 History (2.5 mg base)/3 mL nebulization Breathing Problems soln lancets (Accu-Chek Softclix #100 ea 10/30/23 08/14/24 History Lancets) syringe with needle 3 mL 23 x 1 #1 ea 10/30/23 History (BD Luer-Konrad Syringe) famotidine 20 mg tablet 20 mg PO BID #180 tabs 11/1508/14/24 Rx ropinirole 3 mg tablet 3 mg PO DAILY #90 tabs 12/1308/14/24 Rx atorvastatin 80 mg tablet 80 mg PO DAILY #90 tabs 04/0 04/1608/14/24 Rx promethazine 25 mg tablet 25 mg PO Q8HP PRN motion sic kness 06/27/24 08/14/24 Rx #90 tabs clonazepam 1 mg tablet 1 mg PO BID #60 tabs 5 08/14/24 Rx dulaglutide 3 mg/0.5 mL See Rx Instructions .Route 0 07/22/24 08/14/24 Rx subcutaneous pen injector .COMPLEX #2 mL (Trulicity) albuterol sulfate 90 mcg/actuation 2 inh inhalation Q4 -6H PRN 07/29/24 08/14/24 Rx aerosol inhaler Breathing Problems #8.5 gram s azelastine 137 mcg (0.1 %) nasal 2 spray intranasal BI D . #30 mL 07/29/24 08/14/24 Rx spray eptinezumab-jjmr 100 mg/mL 100 mg IV [id number] 07/29/24 08/14/24 Rx intravenous solution (Vyepti) fluticasone fur. 200 mcg-umeclid 1 inh inhalation JUANITA Y #60 ea 07/29/24 08/14/24 Rx 62.5 mcg-vilant 25 mcg inhalat.powder (Trelegy Ellipta) meclizine 25 mg tablet 25 mg PO BID PRN motion sick ness 07/29/24 08/14/24 Rx #60 tabs ubrogepant 100 mg tablet (Ubrelvy) 100 mg PO DAILY PRN Migraine 07/29/24 08/14/24 Rx Headache #30 tabs fenofibrate nanocrystallized 145 145 mg PO DAILY #30 t abs 07/31/24 08/14/24 Rx mg tablet sertraline 100 mg tablet See Rx Instructions .Route 0 07/31/24 08/14/24 Rx .COMPLEX #60 tabs sodium,potassium,mag sulfates 17.5 See Rx Instructions PO .COMPLEX 08/05/24 08/14/24 Rx gram-3.13 gram-1.6 gram oral soln #354 mL (Suprep Bowel Prep Kit) New Prescriptions to Start Prescriptions: Allergies Allergy/AdvReac Type Severity Reaction Status Date / Time acetaminophen (From Lortab) Allergy Intermediate Verified 08/01/24 11:57 hydrocodone (From Lortab) Allergy Intermediate Verified 08/01/24 11:57 codeine AdvReac Severe Verified 08/01/24 11:57 hydromorphone (From Dilaudid) AdvReac Severe Verified 08/01/24 11:57 morphine AdvReac Severe Verified 08/01/24 11:57 oxycodone AdvReac Severe Verified 08/01/24 11:57 topiramate AdvReac Severe Hives Verified 08/01/24 11:57 ondansetron (From Zofran) AdvReac Intermediate Verified 08/01/24 11:57 Exam Data for Last 24 hours Vital signs and Labs for Last 24 Hours: Temp Pulse Resp BP Pulse Ox O2 Del Method 97.2 F L 75 18 119/66 97 Room Air 08/21/24 09:12 08/21/24 09:12 08/21/24 09:12 08/21/24 09:12 08/21/24 09:12 08/21/24 09:12 Laboratory Results - last 24 hr 08/21/24 09:14: POC Glucose 110 *Routine HEENT Exam Head: Present normocephalic Eye: Present EOMI and PERRL ENT: Present mucous membranes moist *Routine Neck Exam Neck: Present supple *Routine Respiratory Exam Respiratory: Present CTA bilaterally *Routine Cardiovascular Exam Cardiovascular: Present RRR *Routine Abdominal Exam Abdominal: Present soft and normoactive bowel sounds; Absent tenderness *Routine Rectal Exam Rectal:: deferred *Routine Genitalia Exam Genitalia:: deferred *Routine Extremities Exam Extremities: Absent cyanosis, clubbing or edema *Routine Skin Exam Skin: Present warm; Absent rash *Routine Neurological Exam Neurological: Present alert and oriented X3 Assessment and Plan *Assessment and plan (1) Nausea & vomiting: Status: Acute Category: Medical Code(s): R11.2 - Nausea with vomiting, unspecified (2) Generalized abdominal pain: Status: Acute Category: Medical Code(s): R10.84 - Generalized abdominal pain (3) Bloating: Status: Acute Category: Medical Code(s): R14.0 - Abdominal distension (gaseous) (4) Chronic diarrhea: Status: Acute Category: Medical Code(s): K52.9 - Noninfective gastroenteritis and colitis, unspecified (5) Fecal urgency: Status: Acute Category: Medical Code(s): R15.2 - Fecal urgency (6) Dyspepsia: Status: Acute Category: Medical Code(s): R10.13 - Epigastric pain Plan A/P: 1. Nausea, vomiting, generalized abdominal pain, bloating, chronic diarrhea with urgency is the preprocedural diagnosis. The patient will be anesthetized/sedated using MAC sedation. The patient has been seen and examined. Cardiac and lung assessment prior to the examination is stable. Proceed with planned diagnostic EGD and colonoscopy.
--- NOTE | 2024-08-21 10:24 | P.PCN_ITS ---
[facility] Procedure Note Date: 08/21/24 Time: 10:45 Procedure Note:: Upper Endoscopy Procedure Report: Esophagogastroduodenoscopy with cold biopsies and cold snare polypectomy Endoscopost: Tye Leung II, MD Referring Physician: COLIN Ambrosio Date of Procedure: August 21, 2024 Equipment: Olympus GIF 190 standard upper endoscope Sedation: MAC sedation Indications: Mrs. Escobedo is a 69-year-old female who is here for diagnostic EGD and colonoscopy. The patient does report generalized abdominal pain, nausea and vomiting. She has had some black stools intermittently. She had cholecystectomy 20 years ago. Ever since her gallbladder removal she has had postprandial bowel urgency and diarrhea. The patient does get a lot of excessive bloating and some belching. She reports no dysphagia. She does get mucus in her stool and sometimes blood. Her last colonoscopy was 5 to 6 years ago at [facility]. She reports having a couple of polyps removed. She does have a history of bleeding gastric ulcers and was diagnosed with a hiatal hernia in 1989. She does state that her maternal aunt was diagnosed with either colon or appendiceal cancer. She has a paternal first cousin with gastric cancer. Her mother has Crohn's disease. Sometimes she takes Pepto-Bismol. Most of her digestive symptoms have been going on for years but they have been getting worse. Procedure: Prior to the procedure, a history and physical exam was performed, and patient's medications and allergies were reviewed. The risks, benefits and alternatives of the sedation and procedure were discussed with the patient. All questions were answered and informed consent was obtained. The patient was brought to the procedure room. Patient identification and proposed procedure were verified by the physician and the nurse. The patient was placed in a left lateral decubitus position and the scope was passed under direct vision. Throughout the procedure, the patient's blood pressure, pulse, and oxygen saturations were monitored continuously. The upper GI endoscopy was accomplished without di fficulty. The patient tolerated the procedure well. Findings: The scope was passed directly into the upper esophagus and advanced to the fourth portion of duodenum and proximal jejunum. A cold biopsy was taken from the proximal jejunum for disaccharidase assay. 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 This was removed completely with cold snare polypectomy. A single Endo Clip was placed over the polypectomy site. There was a small angiodysplasia in the third portion of duodenum. This was nonbleeding. The ampulla and duodenal bulb were normal with normal mucosa and conniventes. The scope was withdrawn through a normal duodenal bulb and pylorus into the stomach. There was bile reflux with moderate linear reactive gastropathy of the antrum. A cold biopsy was taken. Upon retroflexion the body and fundus of the stomach were normal and there was no hiatal hernia. The scope was then withdrawn into the esophagus. There was no evidence of reflux esophagitis or Mayberry's. There were strong tertiary contractions and evidence of moderate esophageal dysmotility. There was also evidence of faint grade 0?1 esophageal varices. The remainder of the esophageal mucosa was normal. Impression: 1. Faint grade 0?1 esophageal varices 2. Nonerosive GERD with moderate esophageal dysmotility 3. Bile reflux with moderate linear reactive gastropathy of antrum 4. 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 Small duodenal angiodysplasia third portion Plan: I will follow-up the biopsies and disaccharidase assay. If this is a duodenal adenoma, I would recommend repeat surveillance EGD in 1 year. I will also obtain a hepatic fibrotic markers because of her faint esophageal varices. I will proceed with diagnostic colonoscopy.
--- NOTE | 2024-08-21 10:49 | P.PCN_ITS ---
[facility] Procedure Note Date: 08/21/24 Time: 11:04 Procedure Note:: Colonoscopy Procedure Report: Colonoscopy Endoscopist: Tye Leung II, MD Referring physician: COLIN Ambrosio Date of Procedure: August 21, 2024 Equipment: Olympus 190 variable stiffness pediatric colonoscope Sedation: MAC sedation Indication: Mrs. Escobedo is a 69-year-old female who is here for diagnostic EGD and colonoscopy. The patient does report generalized abdominal pain, nausea and vomiting. She has had some black stools intermittently. She had cholecystectomy 20 years ago. Ever since her gallbladder removal she has had postprandial bowel urgency and diarrhea. The patient does get a lot of excessive bloating and some belching. She reports no dysphagia. She does get mucus in her stool and sometimes blood. Her last colonoscopy was 5 to 6 years ago at [facility]. She reports having a couple of polyps removed. She does have a history of bleeding gastric ulcers and was diagnosed with a hiatal hernia in 1989. She does state that her maternal aunt was diagnosed with either colon or appendiceal cancer. She has a paternal first cousin with gastric cancer. Her mother has Crohn's disease. Sometimes she takes Pepto-Bismol. Most of her digestive symptoms have been going on for years but they have been getting worse. Procedure: Prior to the procedure, a history and physical exam was performed, and patient's medications and allergies were reviewed. The risks, benefits and alternatives of the sedation and procedure were discussed with the patient. All questions were answered and informed consent was obtained. The patient was brought to the procedure room. Patient identification and proposed procedure were verified by the physician and the nurse. The patient was placed in a left lateral decubitus position and the scope was passed under direct vision. Throughout the proce dure, the patient's blood pressure, pulse, and oxygen saturations were monitored continuously. The colonoscopy was accomplished without difficulty. The patient tolerated the procedure well. Findings: On digital rectal examination there was normal rectal tone. There were no external hemorrhoids. The colonoscope was introduced through the anal canal to the rectum and advanced to the cecum. The ileocecal valve and appendiceal orifice were identified. The scope was advanced a short distance into the ileum which appeared grossly normal. The scope was then withdrawn into the colon. The cecum, ascending, transverse, descending, sigmoid and rectum were grossly normal. There were no mucosal abnormalities identified. Upon retroflexion within the rectum there were grade 1 internal hemorrhoids. The preparation was fair throughout with Hopkins Preparation Score of 6-7 out of 9. The cecal time was 12 minutes. Impression: 1. Normal colonoscopy with intubation of the terminal ileum Plan: The patient will not require surveillance colonoscopy again for 10 years by ACS guidelines. I do feel that the patient has IBS diarrhea. We will discuss treatment options.
[2024-08-21 11:11] VITALS: BP 89/56; PULSE 68; RESP 16; TEMP 36.2; O2SAT 94
[2024-08-21 11:21] VITALS: BP 91/49; PULSE 65; RESP 16; O2SAT 95
[2024-08-21 11:31] VITALS: BP 108/75; PULSE 68; RESP 18; O2SAT 96
[2024-08-21 11:41] VITALS: BP 117/64; PULSE 62; RESP 18; O2SAT 98
[2024-08-21 12:11] VITALS: BP 114/71; PULSE 63; RESP 18; TEMP 36.2; O2SAT 98
[2024-08-25 19:09] LABS: ALT (SGPT) P5P 18 IU/L (0-40); AST (SGOT) P5P 32 IU/L (0-40); Alpha 2-Macroglobulins, Qn 193 mg/dL (110-276); Bilirubin, Total 0.1 mg/dL (0.0-1.2); Cholesterol, Total 149 mg/dL (100-199); GGT 36 IU/L (0-60); Glucose 89 mg/dL (70-99); Triglycerides 362 mg/dL (0-149)
[2024-08-28 15:11] LABS: Interpretation Notes (.); Lactase 13.21 (>/= 14.0); Maltase 431.74 (>/= 110.0); Palatinase 21.86 (>/= 8.5); Reference Notes (.); Sucrase 109.29 (>/= 25.0)
== END 2024-08-21 12:11 | disposition home or self-care (01) ==
PROVIDERS: PCP Nurse Practitioner Family; Visit Provider Internal Medicine Gastroenterology
PROC: 0DJ08ZZ Inspection of Upper Intestinal Tract, Via Natural or Artificial Opening Endoscopic (ICD-10-PCS; CPT 45378; principal; 2024-08-21 10:00)
DX: I85.00 Esophageal varices without bleeding (principal); K21.9 Gastro-esophageal reflux disease without esophagitis; K31.9 Disease of stomach and duodenum, unspecified; D13.2 Benign neoplasm of duodenum; K31.819 Angiodysplasia of stomach and duodenum without bleeding; K64.0 First degree hemorrhoids; E78.5 Hyperlipidemia, unspecified; G40.909 Epilepsy, unspecified, not intractable, without status epilepticus; E11.9 Type 2 diabetes mellitus without complications; F17.200 Nicotine dependence, unspecified, uncomplicated; Z88.5 Allergy status to narcotic agent; Z88.8 Allergy status to other drugs, medicaments and biological substances; Z79.899 Other long term (current) drug therapy; Z80.0 Family history of malignant neoplasm of digestive organs; Z86.0100 Personal history of colon polyps, unspecified
CPT/HCPCS: 43239; 43251; 45378; 36415; 82172; 82247; 82465; 82657; 82947; 82962; 82977; 83010; 83883; 84450; 84460; 84478; J2003; J2704; J3010; J7120

== ENCOUNTER 2024-09-02 10:02 | Outpatient (POV) | payer MEDICARE, MEDICAID, SELFPAY ==
--- OUTSIDE RECORDS SUMMARY | 2023-12-28 06:15 | XMS_ITS ---
Author Organization [facility] Address [address] [place] [address] Care Team Providers Care Living Nurse Name Role Phone Enoc Crane Primary Care Provider [phone] ENOC Crane APRN Unavailable Unavailable REASON FOR VISIT 3 Month F/U Encounters Encounter Location Date Provider Diagnosis [facility] [address] [place], [place] [address] 12/28/2023 Enoc Crane Plan Of Treatment No Information Progress Notes * RAMIREZ, Alber:1955 (69 yo F)Acc No.[id number]:12/28/2023 Progress Notes Patient: Cecile HUSSEIN Provider: Monie Crane APRN :1955 A ge:68 Y S ex:Female Date:12/28/2023 Address:[address] [id number] Subjective: * Chief Complaints: * 1 . 3 Month F/U. * Medical History: Objective: * Vitals: Assessment: Plan: * Treatment: * * Electronic signature of Phan Crane APRN on 09/02/2024 at 10:06 AM EDT Sign off status: Pending * Provider: Monie Crane APRN Date: 02/26/2023 Generated for Printi ng/Faxing/eTransmitting on: 0 09/02/2024 10:06 AM EDT
--- OUTSIDE RECORDS SUMMARY | 2024-05-25 17:30 | XMS_ITS ---
Author Organization [facility] Address [address] [place] [address] Care Team Providers Care Transportation Analyst Name Role Phone Enoc Crane Primary Care Provider ENOC Crane APRN Unavailable Unavailable Migration, Provider Unavailable Unavailable Allergies Allergen (clinical drug ingredient) Drug/Non Drug Allergy documented on EMR Reaction Allergy Type Onset Date Status PERCODAN (uncoded) hallunications Allergy Active ZOFRAN (uncoded) stomach upset Allergy Active hydromorphone Dilaudid vomiting Drug Allergy Act florecita morphine Morphine vomiting Drug Allergy Active REASON FOR VISIT [facility] To [facility] Conversion Encounter Medications Medication SIG (Take, [...] Active Encounters Encounter Location Date Provider Diagnosis [facility] [address] [facility] [address] [place] [address] 05/25/2024 Provider Migration Plan Of Treatment Medication [...] Notes * Rivas RAMIREZB:1955 (69 yo F)Acc No.[id number]:05/25/2024 Patient: Alejandra HUSSEINnda Provider: Pankaj thomson Migration :1955 A ge:69 Y S ex:Female Date:05/25/2024 Address:[address] [place], [place] [id number] Pcp:Enoc Crane Subjective: * Chief Complaints: * 1 . Multum To Medispan Conversion Encounter. * Medical History: * Medications: T peterg Trelegy Ellipta 200 MCG-62.5 MCG-25 MCG/INH POWDER 1 PUFF(S) INHALED ONCE A DAY , Notes to Pharmacist: *Please review and pick correct strength-formulation [facility] options. If intended option is not shown, [...] Electronic signature of Prov ider Migration on 09/02/2024 at 10:05 AM EDT Sign off status: Pending * Provider: Pankaj thomson Migration Date: 05/25/2024 Generated for Yumiko robison/Margarette/Jimboitting on: 09/02/2024 10:05 AM EDT
--- OUTSIDE RECORDS SUMMARY | 2024-09-02 10:05 | XMS_ITS | Encounter Summary ---
Author Organization [employer] ([place], [place], [place], [place]) Address [address] [place] [address] Care Team Providers Care Slot Tag Inserter Name Role Phone Jayden Rwoan MD Primary Care Provider [phone] Encounter Details Date Type Department Care Team (Late st Contact Info) Description 10/02/2020 Transcribed Document [facility] Family Medicine [facility], [facility] [address] ProviderJason MD [address] [place], [place] [id number] Social History Tobacco Use Types Packs/Day Years [...] On: 10/02/2020 12:18 EDT by Tori Rolon bending press operator Process Patient Disposition : Discharge Personal [...] - 10/02/2020 12:18 EDT Electronically signed by [facility], [facility] Conversion Urban Redevelopment Specialist Cerner at 06/09/2022 3:29 PM CDT documented in this encounter Plan of Treatment Not on file documented as of this encounter Visit Diagnoses Not on filedocumented in this encounter Care Teams Slot Tag Inserter Relationship Specialty Start Date End Date Jayden Rowan MD [address] [place] [phone] PCP - General General Internal Medicine 07/05/22 documented as of this encounter
--- OUTSIDE RECORDS SUMMARY | 2024-09-02 10:05 | XMS_ITS | Encounter Summary ---
Author Organization [employer] ([place], [place], [place], [place]) Address [address] [place] [address] Care Team Providers Care Therapist Respiratory Name Role Phone Jayden Rowan MD Primary Care Provider [phone] Encounter Details Date Type Department Care Team (Late st Contact Info) Description 08/24/2021 Transcribed Document [facility] [place] Family Medicine [address] [place] [address] ProviderJason MD [address] [place] [address] Social History Tobacco Use Types Packs/Day Years Used Date Smoking Tobacco: Never Assessed Food Insecurity Answer Date Recorded Food run [...] Jean Carlos rded Speak language other than American at home Not on file 03/10/2023 Want help with school or training Not on file 03/10/2023 Substance Use Answer Date Recorded Used prescription meds for non-medical reasons N ot on file 03/10/2023 Used illegal drugs past 12 months Not on file 03/10/2023 Comments Unknown Sex and Gender Information Value Date Recorded Sex Assigned at Not on file Legal Sex Female 3:15 PM CDT Gender Identity Not on file Sexual Orientation Not on file COVID-19 Exposure Response Date Recorded In the last 10 days, have yo u been in contact with someone who was confirmed or suspected to have Coronavirus/COVID-19? No / Unsure 07/07/2022 7:10 AM EDT documented as of this encounter Miscellaneous Notes * Cerner Conversion Note - Historical Provider, - 08/24/2021 9:39 PM CDT ED Discharge Vital Signs Entered On: 08/24/2021 21:39 EDT Performed On: 08/24/2021 21:39 EDT by Ewa Villagran LOGGING CREW FOREMAN Discharge Vital Signs Peripheral Pulse Rate : 64 bpm Respiratory Rate : 18 Breaths/Min Oxygen Saturation : 99 % Oxygen Therapy Mode : Room air Ewa Villagran RN - 08/24/2021 21:39 EDT Electronically signed by Tadeo [facility] Conversion Osha Inspector Cerner at 06/09/2022 3:31 PM CDT documented in this encounter Plan of Treatment Not on file documented as of this encounter Visit Diagnoses Not on filedocumented in this encounter Care Teams Therapist Respiratory Relationship Specialty Start Date End Date Jayden Rowan MD [address] [place] [phone] PCP - General General Internal Medicine 07/05/22 documented as of this encounter
--- OUTSIDE RECORDS SUMMARY | 2024-09-02 10:05 | XMS_ITS | Encounter Summary ---
Author Organization [employer] ([place], [place], [place], [place]) Address [address] [place] [address] Care Team Providers Care Practice Manager Name Role Phone Jayden Rowan MD Primary Care Provider [phone] Encounter Details Date Type Department Care Team (Late st Contact Info) Description 11/03/2020 Transcribed Document [facility] [place] Family Medicine [address] [place] [address] ProviderJason MD [address] [place] [address] Social History Tobacco Use Types [...] Jason ProviderMD - 11/03/2020 10:54 AM CDT Randall Suicide Severity Rating Scale (C-SSRS) Entered On: 11/03/2020 11:16 EDT Performed On: 11/03/2020 11:14 EDT by BORIS METZ RN Randall Suicide Severity Rating Scale (C-SSRS) CSSRS Past [...] on filedocumented in this encounter Care Teams Practice Manager Relationship Specialty Start Date End Date Jayden Rowan MD [address] [place] [phone] PCP - General General Internal Medicine 07/05/22 documented as of this encounter
--- OUTSIDE RECORDS SUMMARY | 2024-09-02 10:05 | XMS_ITS | Encounter Summary ---
Author Organization [employer] ([place], [place], [place], [place]) Address [address] [place] [address] Care Team Providers Care Bacon Slicer Name Role Phone Leanna Rivera MD Primary Care Provider [phone] Encounter Details Date Type Department Care Team (Late st Contact Info) Description 05/10/2021 Transcribed Document [facility] Radiology [address] [place] [address] Lisa Rivera MD [facility] Dept of Emergency Medicine [place] [id number] Social History Tobacco Use Types Packs/Day Years [...] Jean Carlos rded Speak language other than Nigerian at home Not on file 03/10/2023 Want [...] Pt is considering establishing care with painter chassis but has not yet done so.. Review [...] EDT Height Source Stated Height Entry Format [place] Height/Length, SIERRA LEONEAN (ft) 5 ft Height/Length SIERRA LEONEAN 3 Inch CLINICALHEIGHT 160.02 cm [place] Body Weight 52.02 kg Weight Source, ED Standing scale Weight Entry Format [place] Weight Nigerian lb 140 lb CLINICALWEIGHT 63.64 kg Body [...] Triage: ED C-SSRS: ED Clinical Reconciliation: ED geology faculty member: fentaNYL: 100 mcg, IntraMuscular, 1-Time promethazine: 25 [...] with specialist Within 2 to 4 days instructional services specialist; JOSHUA MCNEAL Within 2 to 4 days One option for painter chassis. Counseled: Patient, Regarding treatment plan. documented in this encounter Plan of Treatment Not on file documented as of this encounter Visit Diagnoses Not on filedocumented in this encounter Care Teams Bacon Slicer Relationship Specialty Start Date End Date Leanna Rivera MD [address] [place] [phone] PCP - General General Internal Medicine 07/05/22 documented as of this encounter
--- OUTSIDE RECORDS SUMMARY | 2024-09-02 10:05 | XMS_ITS | Encounter Summary ---
Author Organization [employer] ([place], [place], [place], [place]) Address [address] [place] [address] Care Team Providers Care Seed Service Advisor Name Role Phone Leanna Rivera MD Primary Care Provider [phone] Encounter Details Date Type Department Care Team (Late st Contact Info) Description 11/03/2020 Transcribed Document [facility] [address] [place] [address] ProviderJason MD [address] [place] [address] Social History Tobacco Use Types [...] Zendejas MD - 11/03/2020 12:03 PM CDT [facility] [address] [place] [address] CECILE RAMIREZIL :1955 Visit Time:11/03/2020 Your Visit Summary Your [...] Within 2 to 3 days Where: [address] [address] [facility] (1) Allergies HYDROmorphone Imitrex Maxalt Zofran [...] these instructions at home: Medicines ??? Take [id number] and prescription medicines only as told by your health care provider. ??? Ask your health care provider if the medicine prescribed to you: ? Requires you to avoid driving or using heavy machinery. ? Can cause constipation. You may need to take these actions to prevent or treat constipation: ? Drink enough fluid to keep your urine pale yellow. ? Take vzoe-azd-yiyopqt or prescription medicines. ? Eat foods that [...] provider. Document Revised: 05/31/2019 Document Reviewed: 03/21/2019 [employer] Patient Education ?? 2020 [employer]. Emergency Awareness and Preventative Care STROKE is [...] Assistance with quitting is available by contacting 9-451-ZPGR-NOW. This is a free resource providing counseling, [...] was given the opportunity to ask questions. Patient/Accounting Clerk Name: Patient/Accounting Clerk Signature: Relationship to Patient: Clinician/Hospital Accounting Clerk Signature: Please Provide a Telephone Number Where You Can Be Reached: Is it Permissible To Leave a Message? Date: Electronically signed by [facility], [facility] Conversion Long Wall Mining Machine Tender Cerner at 06/09/2022 3:31 PM CDT documented in this encounter Plan of Treatment Not on file documented as of this encounter Visit Diagnoses Not on filedocumented in this encounter Care Teams Seed Service Advisor Relationship Specialty Start Date End Date Leanna Rivera MD [address] [place] [address] [place] [phone] PCP - General General Internal Medicine 5/16/23 documented as of this encounter
--- OUTSIDE RECORDS SUMMARY | 2024-09-02 10:06 | XMS_ITS | Data Portability ---
Author Organization [facility] ADELA Neal NINEVEH CLOSED Address [address] [facility] [address] [place] [address] Care Team Providers Care Shank Taper Name Role Phone LEANNA DAVIDSON Neurologist [phone] LILIANA LUNDBERG Orthopedic Surgeon [phone] AGUSTO VALVERDE Phys. Med. & Rehab [phone] Assessment Encounter Date Assessment Date Assessment [...] recorded. Lab hemoglobin A1C, fingerstick 2022 023 [facility], [address] [place] [address], [phone], 11:25:24 microalbumi n/creatinin e, mass ratio, urine 2022 023 [facility], [address] [place] [address], [address], 3 15:20:19 glycohemogl obin, total, blood 2022 023 [facility], [address] [place] [address], [address], 3 15:05:36 lipid panel, serum 2022 023 [facility], [address] [place] [address], [address], 3 15:24:16 CMP, serum or plasma 2022 023 [facility], [address] [place] [address], [address], 3 15:24:14 CBC w/ auto diff 2022 023 [facility], [address] [place] [address], [address], 3 16:57:00 TSH, serum or plasma 2022 023 [facility], [address] [place] [address], [address], 3 15:10:59 Referral None recorded. Procedures nerve conduction study/EMG, upper extremity (PROC) - Right upper extremity evaluation for carpal tunnel syndrome, rule out other compressive neuropathy and radiculopat hy. Bilateral upper extremity comparison. 2022 [email or web address] Of Service Professional Charges, [facility] [address], [address], 3 10:28:48 Surgeries None recorded. Imaging CT, wrist, w/o contrast 2022 023 [email or web address] Not available 3 08:23:13 US, duplex, arterial, lower extremity, complete 2022 023 [facility] (Centralized Scheduling), [address] , [place], [address], 5 11:55:52 Medication Orders clonazepam 1 mg tablet 2022 023 [facility], [address], [place], [address], 3 11:01:12 Patient TargetsNo targets recorded. Patient Instructions Encounter Date Encounter Id Patient Instructions Last Modified By Organization Details Last Modified Time 02/16/2023 [id number] DeQuervain's Tendonitis-LC bdevers Not available 02/16/2023 13:20:53 Reason for Referral None Reported. Results Created Date Observation Date Name Description Value Unit Range Abnormal Flag Note LastModifiedBy Organization Detail LastModifiedTime 10/22/19 23 10/21/2022 GLYCO HEMOG LOBIN A1C glyco HGB A1C 6.6 % 0.0-5. 6 high Not Available [facility] [address] [place] [address], [address], 10/21/2022 15:05:36 10/22/19 23 10/21/2022 GLYCO HEMOG LOBIN A1C estimated avg. glucose 143 mg/dL _(opal c) normal A1c value s betwe en 5.7% to 6.4% indic ate predi abete s. Resul ts 6.5% or great er is diagn ostic of diabe herbert. Ameri can [facility]abe herbert [facility] i[facility] n (diab etes. org) Not Available [facility] [address] [place], [address], 10/21/2022 15:05:36 10/22/19 23 10/21/2022 TSH TSH 2.230 u[IU] /mL 0.270- 4.200 normal Not Available [facility] [address] [place], [address], 10/21/2022 15:10:59 10/22/19 23 10/21/2022 MICRO ALBUM IN/CR EAT RATIO microalbumin , random <12 mg/L 0-19 normal Not Available [facility] [address] [place] [address], [address], 10/21/2022 15:20:19 10/22/19 23 10/21/2022 MICRO ALBUM IN/CR EAT RATIO creatinine,u r,random 100 mg/dL normal NO DEBO L RANGE ESTAB LISHE D FOR RANDO M URINE . Not Available [facility] [address] [place] [address], [address], 10/21/2022 15:20:19 10/22/19 23 10/21/2022 MICRO ALBUM IN/CR EAT RATIO MA/creatinin e ratio see below mcg/m g_cre at 0-29 normal Unabl e to calcu late micro album in/cr eatin ine ratio . Not Available [facility] [address] [place] [address], [address], 10/21/2022 15:20:19 10/22/19 23 10/21/2022 COMP. METAB OLIC PANEL glucose 94 mg/dL 74-100 normal Not Available [facility] [address] [place] [address], [address], 10/21/2022 15:24:13 10/22/19 23 10/21/2022 COMP. METAB OLIC PANEL blood urea nitrogen 5 mg/dL 6-20 low Not Available [facility] [address] [place], [address], 10/21/2022 15:24:13 10/22/19 23 10/21/2022 COMP. METAB OLIC PANEL creatinine 0.73 mg/dL 0.50-0 .95 normal Not Available [facility] [address] [place] [address], [address], 10/21/2022 15:24:13 10/22/19 23 10/21/2022 COMP. METAB OLIC PANEL BUN/creatini ne ratio 7 (calc ) 10-20 low Not Available [facility] [address] [place] [address], [address], 10/21/2022 15:24:13 10/22/19 23 10/21/2022 COMP. METAB OLIC PANEL sodium 141 mmol/ L 136-14 5 normal Not Available [facility] [address] [place] [address], [address], 10/21/2022 15:24:13 10/22/19 23 10/21/2022 COMP. METAB OLIC PANEL potassium 3.8 mmol/ L 3.4-5. 0 normal Not Available [facility] [address] [place] [address], [address], 10/21/2022 15:24:13 10/22/19 23 10/21/2022 COMP. METAB OLIC PANEL chloride 106 mmol/ L 98-107 normal Not Available [facility] [address] [place] [address], [address], 10/21/2022 15:24:13 10/22/19 23 10/21/2022 COMP. METAB OLIC PANEL carbon dioxide 25 mmol/ L 22-31 normal Not Available [facility] [address] [place] [address], [address], 10/21/2022 15:24:13 10/22/19 23 10/21/2022 COMP. METAB OLIC PANEL anion gap 10 (calc ) 7-25 normal Not Available [facility] [address] [place] [address], [address], 10/21/2022 15:24:13 10/22/19 23 10/21/2022 COMP. METAB OLIC PANEL calcium 9.7 mg/dL 8.6-10 .2 normal Not Available [facility] [address] [place] [address], [address], 10/21/2022 15:24:13 10/22/19 23 10/21/2022 COMP. METAB OLIC PANEL total protein 8.0 g/dL 6.4-8. 3 normal Not Available [facility] [address] [place] [address], [address], 10/21/2022 15:24:13 10/22/19 23 10/21/2022 COMP. METAB OLIC PANEL albumin 4.5 g/dL 3.5-5. 2 normal Not Available [facility] [address] [place] [address], [address], 10/21/2022 15:24:13 10/22/19 23 10/21/2022 COMP. METAB OLIC PANEL globulin 3.5 1.5-4. 5 normal Not Available [facility] [address] [place] [address], [address], 10/21/2022 15:24:13 10/22/19 23 10/21/2022 COMP. METAB OLIC PANEL albumin/glob ulin ratio 1.3 (calc ) 1.1-2. 5 normal Not Available [facility] [address] [place] [address], [address], 10/21/2022 15:24:13 10/22/19 23 10/21/2022 COMP. METAB OLIC PANEL bilirubin, total 0.2 mg/dL 0.1-1. 2 normal Not Available [facility] [address] [place] [address], [address], 10/21/2022 15:24:13 10/22/19 23 10/21/2022 COMP. METAB OLIC PANEL alkaline phosphatase 71 U/L 30-121 normal Not Available [facility] [address] [place] [address], [address], 10/21/2022 15:24:13 10/22/19 23 10/21/2022 COMP. METAB OLIC PANEL AST 21 U/L 0-32 normal Not Available [facility] [address] [place], [address], 10/21/2022 15:24:13 10/22/19 23 10/21/2022 COMP. METAB OLIC PANEL ALT 22 U/L 0-33 normal Not Available [facility] [address] [place], [address], 10/21/2022 15:24:13 10/22/19 23 10/21/2022 COMP. METAB [...] tric patie nts refer to [email or web address] :[email or web address]/gf r_cal culat orPed Not Available [facility] [address] [place], [address], 10/21/2022 15:24:13 10/22/19 23 10/21/2022 LIPID PROFI LE HDL cholesterol 40 mg/dL 50-242 low Not Available [facility] [address] [place], [address], 10/21/2022 15:24:15 10/22/19 23 10/21/2022 LIPID PROFI LE triglyceride s 257 mg/dL 0-149 high TRIGL YCERI DE RANGE S DEBO L: < 150 BORDE RLINE HIGH: 150 - 199 HIGH: 200 - 499 VERY HIGH: > OR = 500 Not Available [facility] [address] [place], [address], 10/21/2022 15:24:15 10/22/19 23 10/21/2022 LIPID PROFI LE cholesterol 170 mg/dL 0-199 normal YO STERO L (TOTA L) RANGE S KAILEY ABLE: < 200 BORDE RLINE : 200 - 239 HIGHE R RISK: > 239 Not Available [facility] [address] [place] [address], [address], 10/21/2022 15:24:15 10/22/19 23 10/21/2022 LIPID PROFI LE LDL cholesterol 79 mg/dL _(opal c) 0-99 normal LDL YO STERO L RANGE S OPTIM AL: < 100 NEAR/ ABOVE OPTIM AL: 100 - 129 BORDE RLINE HIGH: 130 - 159 HIGH: 160 - 189 VERY HIGH: > OR = 190 Not Available [facility] [address] [place] [address], [address], 10/21/2022 15:24:15 10/22/1910/21/2022 COMPL ETE BLOOD COUNT white blood cells 9.0 10*3/ uL 3.8-10 .8 normal Not Available [facility] [address] [place] [address], [address], 10/21/2022 16:56:59 10/22/19 23 10/21/2022 COMPL ETE BLOOD COUNT red blood cells 5.44 10*6/ uL 3.80-5 .20 high Not Available [facility] [address] [place] [address], [address], 10/21/2022 16:56:59 10/22/1910/21/2022 COMPL ETE BLOOD COUNT hemoglobin 13.5 g/dL 12.0-1 6.0 normal Not Available [facility] [address] [place] [address], [address], 10/21/2022 16:56:59 10/22/1910/21/2022 COMPL ETE BLOOD COUNT hematocrit 42.1 % 35.0-4 7.0 normal Not Available [facility] [address] [place] [address], [address], 10/21/2022 16:56:59 10/22/1910/21/2022 COMPL ETE BLOOD COUNT MCV 77 fL 80-100 low Not Available [facility] [address] [place] [address], [address], 10/21/2022 16:56:59 10/22/19 23 10/21/2022 COMPL ETE BLOOD COUNT MCH 25 pg 26-35 low Not Available [facility] [address] [place] [address], [address], 10/21/2022 16:56:59 10/22/19 23 10/21/2022 COMPL ETE BLOOD COUNT MCHC 32 g/dL 32-36 normal Not Available [facility] [address] [place] [address], [address], 10/21/2022 16:56:59 10/22/1910/21/2022 COMPL ETE BLOOD COUNT RDW 16.2 % 11.0-1 5.0 high Not Available [facility] [address] [place] [address], [address], 10/21/2022 16:56:59 10/22/19 23 10/21/2022 COMPL ETE BLOOD COUNT MPV 8.1 fL 6.2-10 .5 normal Not Available [facility] [address] [place] [address], [address], 10/21/2022 16:56:59 10/22/19 23 10/21/2022 COMPL ETE BLOOD COUNT platelet count 258 10*3/ uL 130-40 0 normal Not Available [facility] [address] [place] [address], [address], 10/21/2022 16:56:59 10/22/1910/21/2022 COMPL ETE BLOOD COUNT neutrophil,a bsolute 5.1 10*3/ uL 1.6-8. 4 normal Not Available [facility] [address] [place] [address], [address], 10/21/2022 16:56:59 10/22/19 23 10/21/2022 COMPL ETE BLOOD COUNT lymphocyte,a bsolute 3.0 10*3/ uL 0.4-5. 1 normal Not Available [facility] [address] [place] [address], [address], 10/21/2022 16:56:59 10/22/19 23 10/21/2022 COMPL ETE BLOOD COUNT monocyte,abs olute 0.5 10*3/ uL 0.0-1. 2 normal Not Available [facility] [address] [place] [address], [address], 10/21/2022 16:56:59 10/22/19 23 10/21/2022 COMPL ETE BLOOD COUNT eosinophil,a bsolute 0.4 10*3/ uL 0.0-0. 8 normal Not Available [facility] [address] [place] [address], [address], 10/21/2022 16:56:59 10/22/19 23 10/21/2022 COMPL ETE BLOOD COUNT basophil,abs olute 0.1 10*3/ uL 0.0-0. 3 normal Smear revie wed to confi rm cell morph ology . Not Available [facility] [address] [place] [address], [address], 10/21/2022 16:56:59 10/22/19 23 10/21/2022 COMPL ETE BLOOD COUNT % neutrophils 56.6 % 42.0-7 8.0 normal Not Available [facility] [address] [place] [address], [address], 10/21/2022 16:56:59 10/22/19 23 10/21/2022 COMPL ETE BLOOD COUNT % lymphocytes 33.1 % 11.0-4 7.0 normal Not Available [facility] [address] [place] [address], [address], 10/21/2022 16:56:59 10/22/19 23 10/21/2022 COMPL ETE BLOOD COUNT % monocytes 5.4 % 0.0-11 .0 normal Not Available [facility] [address] [place] [address], [address], 10/21/2022 16:56:59 10/22/19 23 10/21/2022 COMPL ETE BLOOD COUNT % eosinophils 4.1 % 0.0-7. 0 normal Not Available [facility] [address] [place] [address], [address], 10/21/2022 16:56:59 10/22/19 23 10/21/2022 COMPL ETE BLOOD COUNT % basophils 0.8 % 0.0-3. 0 normal Not Available [facility] [address] [place] [address], [address], 10/21/2022 16:56:59 10/22/19 23 10/21/2022 COMPL ETE BLOOD COUNT nucleated red cells 0.0 % 0.0-0. 9 normal Not Available [facility] [address] [place] [address], [address], 10/21/2022 16:56:59 10/22/19 23 10/21/2022 COMPL ETE BLOOD COUNT nucleated RBCs, absolute 0.00 10*3/ uL not estab. normal Not Available [facility] [address] [place] [address], [address], 10/21/2022 16:56:59 10/22/19 23 10/21/2022 MORPH OLOGY microcytosis SLIGHT abnormal Not Available [facility] [address] [place] [address], [address], 10/21/2022 16:57:02 10/22/19 23 10/21/2022 MORPH OLOGY hypochromasi a SLIGHT abnormal Not Available [facility] [address] [place] [address], [address], 10/21/2022 16:57:02 10/22/19 23 10/21/2022 MORPH OLOGY ovalocytes SLIGHT abnormal Not Available [facility] [address] [place], [address], 10/21/2022 16:57:02 10/22/19 23 10/21/2022 hemog lobleonardo A1Cnikolay hemoglobin A1C % 6.4 % 4.0 - 5.6 Not Available [address], [address], 10/21/2022 10:31:27 10/07/19 23 10/06/2022 XR, wrist + hand [facility] [address] [facility] [place] [address] Ginbjorn zepeda Name: CECILE zepeda : 1954 [...] Heber Neumann MD on 023 12:26 PM [email or web address] [facility] [address] [place], [address], 10/07/2022 08:35:58 10/07/19 23 10/06/2022 XR, elbow , 3 or more view [facility] [address] [facility] [place] [address] Shelley zepeda Name: CECILE zepeda : 1954 Shelley zepeda 0 Orderi ng Provid er: CHUNGREBECCA HANDLEY Frank EXAM DATE: 2022 EXAM: XR RT ELBOW COMPLE TE HISTOR Y: Elbow pain COMPAR ELLA: None. FINDIN GS: Normal alignm ent. No fractu re or disloc ation is visual ized. Mild degene rative change s. IMPRES TREY: 1. No acute bony findin g Interp reted By: Heber Neumann MD Electr onical ly Signed By: Heber Neumann MD on 1:39 PM [facility] [address] [place], [address], 10/06/2022 13:57:41 10/21/19 23 10/20/2022 [facility], [facility] , [facility] [address] [place] [address] Shelley zepeda Name: CECILE zepeda : 1954 [...] aguilera MD on 023 11:08 AM [email or web address] [facility] [place] [address] , [place], [address], 10/20/2022 14:57:19 11/08/19 23 11/07/2022 XR, wrist , 3 or more view [place] [facility] [address] [place] [address] Shelley zepeda Name: CECILE zepeda : 1954 Shelley zepeda 0 Orderi ng Provid er: BEAN CLAVERACK EXAM DATE: 2022 EXAM: XR RT WRIST [...] Jeff aguilera MD on 11:39 AM [email or web address] [facility] [address] , [place], [address], 11/07/2022 15:43:11 12/02/19 23 12/01/2022 XR, wrist , 3 or more view [place] [facility] [address] [address] Patibjorn t Name: CECILE zepeda : 1954 Shelley zepeda 0 Orderi ng Provid er: BEAN CLAVERACK EXAM DATE: 2022 EXAM: XR RT WRIST [...] Jeff aguilera MD on 2022 10:06 AM [facility] [place] [address] , [place], [address], 12/14/2022 13:47:50 12/15/19 23 12/14/2022 CT, wrist , w/o contr ast [facility] [address] [place] [address] Ginbjorn zepeda Name: CECILE zepeda : 1954 [...] Jeff aguilera MD on 2022 11:28 AM [email or web address] [facility] [address] [place], [address], 12/14/2022 13:47:50 02/17/20 23 02/16/2023 XR, wrist , 2 view [place] [facility] [address] [address] Shelley katelyn Name: CECILE zepeda : 1954 Shelley zepeda 0 Orderi ng Provid er: BRYANT LUNDBERG EXAM DATE: 2022 EXAM: XR RT WRIST, AP/LAT HISTOR Y: Follow up of fractu re. COMPAR ELLA: CT dated 2022 FINDIN GS: Again seen is a fractu re of the distal metaph ysis of the right radius . This is unchan ged in align ent in compar ella to the prior [...] aguilera MD on 2022 12:43 PM [email or web address] [facility] [address] [place], [address], 02/16/2023 13:49:48 Result Notes Documentation Provider Name and Address Organization Details Recorded Time Xr, Wrist, 3 Or More View : [facility] [address] [place] [address] Patient Name: CECILE RAMIREZ Patient : 1955 Patient Ordering Provider: BEAN FISCHER EXAM DATE: 11/07/2022 EXAM: XR RT WRIST COMPLETE HISTORY: Followup of fracture. COMPARISON: 10/20/2022 FINDINGS: Again seen is a fracture of the distal metaphysis of the right radius. This is unchanged in alignment in comparison to the prior study. There is mild to moderate dorsal displacement. There is a fracture of the ulnar styloid. No other fracture is seen. IMPRESSION: 1. There is unchanged alignment of the fracture of the distal metaphysis of the right radius. 2. There is a fracture of the ulnar styloid. Interpreted By: Daniel Estes MD FISCHER PA-C [address] [place] [address], [address], [facility] 11/07/2022 15:43:11 Xr, Wrist, 3 Or More View : [facility] [address] [place] [address] Patient Name: CECILE RAMIREZ Patient : 1955 Patient Ordering Provider: BEAN FISCHER EXAM DATE: 12/01/2022 EXAM: XR RT WRIST COMPLETE HISTORY: Followup of fracture. COMPARISON: 11/07/2022 FINDINGS: Again seen is a fracture of the distal metaphysis of the right radius. This is unchanged in alignment in comparison to the prior study. There is dorsal impaction and mild to moderate dorsal displacement. There is a fracture of the tip of the ulnar styloid. No other fracture is seen. There are mild to moderate diffuse degenerative changes. The bones are osteopenic. IMPRESSION: 1. There is unchanged alignment of the fracture of the distal metaphysis of the right radius. 2. There is a fracture of the ulnar styloid. Interpreted By: Daniel Estes MD I MARTINEZ MD [address] [place] [address], [address] 12/14/2022 13:47:50 Ct, Wrist, W/o Contrast : [address] [address] Patient Name: CECILE RAMIREZ Patient : 1955 Patient Ordering Provider: BEAN FISCHER EXAM DATE: 12/14/2022 EXAM: CT RT WRIST W/O CONTRAST HISTORY: 67-year-old female for evaluation of a fracture. COMPARISON: 12/01/2022 TECHNIQUE: 0.67 mm axial helical acquisitions through the right wrist with 3 mm axial reconstruction images and computer generated sagittal and coronal reconstructions. FINDINGS: There is a fracture of the distal metaphysis of the left radius. There is dorsal impaction with mild dorsal tilt of the radiocarpal joint. There is moderate focal displacement along the dorsal cortex of the radius. No intra-articular extension is identified. There is a fracture of the ulnar styloid. The carpal bones are normal in alignment. No fracture is identified. There are mild to moderate degenerative changes at the first carpometacarpal joint and triscaphe joint. There are mild degenerative changes in the radiocarpal joint. The bones are diffusely osteopenic. The flexor and extensor tendons of the wrist are intact. There is no tendon transection. The muscles of the wrist appear normal. There is mild subcutaneous edema. IMPRESSION: 1. There is an old or late subacute fracture of the distal metaphysis of the right radius. 2. There is a possible acute fracture of the ulnar styloid. Interpreted By: Daniel Estes MD I MARTINEZ MD [address] [place] [address], [address], [facility] 12/14/2022 13:47:50 [facility]r, Wrist, 2 [facility] [address] [address] Patient Name: CECILE RAMIREZ Patient : 1955 Patient Ordering Provider: LILIANA LUNDBERG EXAM DATE: 02/16/2023 EXAM: XR RT WRIST, AP/LAT HISTORY: Followup of fracture. COMPARISON: CT dated 12/14/2022 FINDINGS: Again seen is a fracture of the distal metaphysis of the right radius. This is unchanged in alignment in comparison to the prior study. There is dorsal impaction and mild displacement. This fracture appears healed. There are mild to moderate degenerative changes. No other fracture is seen. IMPRESSION: 1. There is unchanged alignment and apparent healing of the fracture of the distal metaphysis of the right radius. Interpreted By: Daniel Estes MD ANA LUNDBERG MD [address] [place], [address], [facility] 02/16/2023 13:49:48 Problems Name Problem SNOMED Code Status Onset Date Resolution Date Notes Provider Name and Address Organization Details Recorded Time Recurren t major depressi on 40960135 Active 2016 FREDIS HERNANDEZ MD [address] [place], [address], [facility] 3 10:12:43 Posttrau matic stress disorder 82095347 Active 2016 FREDIS HERNANDEZ MD [address] [place], [address], [facility] 3 10:12:47 Chronic obstruct florecita pulmonar y disease 97221955 Active 2016 FELIPE GRIFFITH PA-C [address] [place], [address], [facility] 3 14:14:26 [place] [id number] Completed 201608/18/2022 FREDIS HERNANDEZ MD [address] [place], [address], [facility] 3 10:12:56 Type 2 diabetes mellitus without complica tion 388458178 Active 2016 FELIPE GRIFFITH PA-C [address] [place], [place], [address] [place] [address], [facility] 3 14:14:50 Primary insomnia 5160686 Active 2016 FREDIS HERNANDEZ MD [address] [place] [address] [place], [address] [place] [address], [facility] 3 10:12:45 Restless legs 73136583 Active 2016 FELIPE GRIFFITH PA-C [address] [place] [address], [address], [facility] 3 14:16:15 Screenin g for malignan t neoplasm of breast Active 2016 FREDIS HERNANDEZ MD [address] [place] [address], [address], [facility] 3 10:12:41 Gastro-e sophagea l reflux disease with esophagi tis 736012996 Active 2016 EGD: 04/06/17 ; Gastriti s, Esophagi tis, No Dysplasi a FELIPE GRIFFITH PA-C [address] [place], [address], [facility] 3 14:14:41 Screenin g for malignan t neoplasm of colon Active 2017 COLONOSC OPY: 04/06/19 18; 1 Plyp; 5 Yr Rpt DUE: 04/07/22 FREDIS HERNANDEZ MD [address] [place], [address], [facility] 3 10:12:40 History of migraine 770122171 Active 2022 FELIPE GRIFFITH PA-C [address] [place], [address], [facility] 3 14:16:24 Hyperten sive disorder 81556253 Active 2022 FELIPE GRIFFITH PA-C [address] [place], [place], [address] [place] [address], [facility] 3 14:16:32 Generali zed anxiety disorder 51284255 Active 2022 FREDIS HERNANDEZ MD [address] [place] [address], [address] [place] [address], [facility] 3 10:13:08 Chest pain 36805295 Completed 201406/14/2022 FELIPE GRIFFITH PA-C [address] [place] [address], [address] [place] [address], [facility] 3 14:14:34 Familial combined hyperlip idemia [id number] Active 2015 FELIPE GRIFFITH PA-C [address] [place] [address], [address] [place] [address], [facility] 3 14:14:37 Problem Notes None recorded. Procedures Surgical History Date Name Laterality Status Provider Name and Address Organization Details Recorded Time 023 Injection Tendon Sheath/Ligament completed LILIANA LUNDBERG MD [address] [place] [address], [phone] [place] [address] 02/16/2023 13:20:02 023 Orthotic, WHO, Static Custom completed LUCIO YU JR, OTR/L, CHT [address] [place] [address], [phone] [place] [address] 10/20/2022 13:39:10 023 PAF Exam completed So Mejia [facility] 06/09/2022 10:54:01 022 Preparation Antigens completed May Yair [facility] 11/04/2021 10:05:45 022 PAF Exam completed LEANNA RIVERA MD [address] [place] [address], [phone], [facility] 07/07/2021 09:15:40 022 PAF Exam completed Laura Teague [facility] 05/27/2021 11:12:47 022 Preparation Antigens completed Yamileth Shields [facility] 05/11/2021 15:39:21 022 IV Hydration completed [facility] 04/21/2021 14:47:36 021 Preparation Antigens completed May Alexandria [facility] 10/28/2020 12:20:05 020 Allergy Skin Test - Food completed GLENNY MAHAN MD [address] [place] [address], [phone], [facility] 07/22/2019 14:17:40 020 Allergy Skin Test - Enviromental completed GLENNY MAHAN MD [address] [place] [address], [phone], [facility] 07/22/2019 14:17:22 019 DXA Normal completed MADDIE FELICIANO MD [address] [place] [address], [phone], [facility] 08/17/2018 11:21:33 019 Cervical Medial Branch Blocks completed TAYLOR BERG MD [address] [place] [address], [phone], [facility] 04/19/2018 13:04:47 019 Cervical Medial Branch Blocks completed TAYLOR BERG MD [address] [place] [address], [phone], [facility] 04/18/2018 07:35:48 017 Post Void Residual; Catheter completed Brina Colby [facility] 02/02/2017 17:08:48 017 Tympanogram completed CONCETTA POLLOCK [address] [place] [address], [phone], [facility] 07/07/2016 16:00:27 017 Audiogram completed DA FUENTES, AUD [address] [place], [address], [facility] 07/07/2016 16:00:25 017 Audiogram completed Kristal Stevenson [facility] 07/07/2016 16:03:44 Appendectomy completed [facility] 07/07/2016 15:31:55 Other completed [facility] 07/07/2016 15:16:25 Cholecystectomy w/cholang completed [facility] 07/07/2016 15:32:39 Hysterectomy/bladd er repair completed [facility] 07/07/2016 15:32:16 Hernia repair w/mesh completed [facility] 07/07/2016 15:32:29 Unlisted px neck/thorax completed [facility] 07/07/2016 15:32:55 Imaging Results None recorded. Procedure Notes None recorded. Medical Equipment None Reported. Allergies Allergen ID Allergen Name Allergen Category Reaction Reaction Severity Criticality Documentation Date Start Date Code Code System Note Provider Name and Address Organization Details Recorded Time 564730 Dilaudid medicatio n Not available Not available Not available 01/14/20162011 31293 3 RxNorm Comme nt: Creat ed By: Javid gavin;Cre ated Date: 2011 2:13: 30 PM; Not Available [facility] 6 10:54:28 [id number] codeine phosphate medicatio n Not available Not available Not available 01/14/20162011 2672 RxNorm Comme nt: Creat ed By: Javid gavin;Cre ated Date: 2011 2:12: 16 PM; Not Available [facility] 6 10:54:28 446221 morphine sulfate medicatio n Not available Not available Not available 01/14/20162011 23005 RxNorm Comme nt: Creat ed By: Javid gavin;Cre ated Date: 2011 2:12: 32 PM; Not Available [facility] 6 10:54:28 858103 hydrocodo ne bitartrat e medicatio n Not available Not available Not available 01/14/20162011 34732 9 RxNorm Comme nt: Creat ed By: Javid gavin;Cre ated Date: 2011 2:12: 47 PM; Not Available [facility] 6 12:56:47 923812 Zofran medicatio n Not available Not available Not available 07/07/2016 54323 RxNorm Vivien Tigre [facility] 7 15:30:37 664451 methocarb shawna medicatio n vomiting Not available Not available 07/09/20212021 6845 RxNorm Lisette Feliz [facility] 2 15:42:02 Medications Name Sig Start [...] prednisol one acetate 1 % [facility] drops,[facility]17 completed Not Available Not Available Not [...] e 50 mcg/actua tion nasal spray,krunal pension [place] 1 spray twice a day by intranas [...] Not Available aripipraz ole 5 mg tablet psych 07/28 completed Not Available Not Available Not [...] Available Not Available Not Available Afluria Quad 8859-0733 (PF) 60 mcg (15 mcg x 4)/0.5 [...] in Arterial blood by Pulse oximetry Systolic And Diastolic Provider Name and Address Organization Details Last Updated DateTime 3 162.56 cm 24.4 kg/m2 45997.1 2 g 84 /min 97 % 97 % 100/65 mm[Hg] Madyson Blood [facility] 3 10:32:52 Date Recorded Body height Body mass index (BMI) Body weight Provider Name and Address Organization Details Last Updated DateTime 11/07/2022 162.56 cm 24.4 kg/m2 25775.12 g Usama Chang [facility] 11/07/2022 11:30:11 Date Recorded Body height Body mass index (BMI) Body weight Provider Name and Address Organization Details Last Updated DateTime 12/01/2022 162.56 cm 24.4 kg/m2 00705.12 g Usama Chang [facility] 12/01/2022 10:07:46 Date Recorded Body height Body mass index (BMI) Body weight Provider Name and Address Organization Details Last Updated DateTime 12/14/2022 162.56 cm 24.4 kg/m2 18700.12 g Peace Santiago [facility] 12/14/2022 13:03:16 Date Recorded Body height Body mass index (BMI) Body weight Provider Name and Address Organization Details Last Updated DateTime 02/16/2023 162.56 cm 24.4 kg/m2 25903.12 g Brina Poncho [facility] 02/16/2023 12:46:58 Social History Question Answer Notes LastModified by Organizat ion Details LastModified Time Tobacco Smoking Status Current Every Day Smoker Vivien Landeros [facility] 07/07/2016 15:31:35 How Much Tobacco Do You Chew? None [email or web address] Information not available 06/26/2018 Marital Status [email or web address] Informat ion not available 05/14/2018 What Was The Date Of Your Most Recent Tobacco Screening? 09/06/2021 [email or web address] Information not available 09/06/2021 What Is Your Relationship Status? [email or web address] Information not available 05/25/2022 How Much Tobacco Do You Smoke? 0.5 PPD Information not available 06/05/2020 Has Tobacco Cessation Counseling Been Provided? Yes [email or web address] Information not available 02/02/2017 On What Date Was Tobacco Cessation Counseling Provided? 08/24/2018 [email or web address] Information not available 08/24/2018 How Many Years [...] Medical History Condition Response Anxiety Disorder Y Diabetes Y Allergies/Hayfever Y Bleeding Disorder N Kidney Stones Y Chronic Obstructive Pulmonary Disease Y Tuberculosis Y Hyperlipidemia Y Cancer N Migraines Y Depression Y COPD Y High Cholesterol Y Anesthesia Complications N Headaches Y Hypertension N Gynecological HistoryNo gynecological history recorded. Obstetrics History GPAL:G 0 P 0 0 0 0 Immunizations Vaccine Type Date Status Note Provider Nam e and Address Organization Details Recorded Time Influenza, split virus, quadrivalent, preservative 9 completed Not Available [facility] 12/14/2022 12:33:02 Pneumococcal conjugate PCV 13 9 completed Not Available [facility] 12/14/2022 12:33:02 zoster recombinant 9 completed Shadia Burrell [facility] 12/27/2018 15:27:03 COVID-19, mRNA, LNP-S, PF, 30 mcg/0.3 mL dose 1 completed [facility] 08/18/2022 10:06:33 COVID-19, mRNA, LNP-S, PF, 30 mcg/0.3 mL dose 1 completed [facility] 08/18/2022 10:06:33 Pneumococcal conjugate PCV20, polysaccharide [id number] conjugate, adjuvant, PF 2 completed [facility] 08/18/2022 10:06:33 Influenza, split virus, trivalent, PF 7 completed [facility] 08/18/2022 10:06:33 Influenza, split virus, quadrivalent, PF 8 completed Not Available [facility] 03/09/2019 02:49:31 Past Encounters Encounter ID Performer Location Encounter Start Date Encounter Closed Date Diagnosis/Indication Diagnosis SNOMED-CT Code Diagnosis ICD10 Code Diagnosis Note [id number] QM_[place] [address] 05/23/2016 17:58:10 05/23/2016 17:58:10 [id number] MD DINESH SHULTZ [facility] [address] [place] [address] 07/07/2016 14:59:34 07/08/2016 08:29:29 Bilateral tinnitus 9092481293 102 H93.13 Sensorineu ral hearing loss of bilateral ears 147093625 H90.3 Noise-leah renato hearing loss 25836377 H83.3X9 Nicotine dependence 5629 4008 F17.395 [id number] [place]CET[place] POLLOCK [place] [facility] [address] [place] [address] 07/07/2016 15:52:50 07/07/2016 16:14:53 Bilateral tinnitus 7301680040 102 H93.13 Sensorineu ral hearing loss of bilateral ears 253644715 H90.3 [id number] LEANNA RIVERA MD [address] [place] [facility] [address] 01/24/2017 09:13:34 01/30/2017 13:41:33 Gastro-esophageal reflux disease with esophagitis 501797923 K21.0 I discussed with the patient transition [...] effects. Screening for malignant neoplasm of breast 273603191 Z12.31 Past due, patient is willing to schedule with today's visit. Restless legs 56125398 G 25.81 Controlled with low-dose ropinirole . Continue current regimen. Primary insomnia 1582108 F51.01 As above. Type 2 olga betes mellitus without complication 190369764 E11.9 According to patient's historical recall, this has been very well controlled . We'll plan to check some routine diabetes labs today. Continue current regimen. Overweight 811647713 E66 .3 I discussed with the patient [...] as fatty/frie d foods in general. Dyslipidemia 716537805 E 78.5 Patient continues to tolerate high-inten sity Lipitor well. No history of strokes or heart attacks. History of diabetes mellitus type 2 and strong family history of combined hyperlipid emia and vascular disease. Chronic ob structive pulmonary disease 72808672 J44.9 Symptoms stable on current regimen. Posttrauma tic stress disorder 92376988 F43.10 Discussed the patient's PTSD and major depression at length. She is currently continuing to work on her acceptance and emotional reaction to her past history. Her medication s are so far well tolerated. She is going to continue to follow regularly with her long-stand ing psychiatri st and therapist at [facility]. Recurrent major depression 32142780 F33.9 Familial c ombined hyperlipidemia 118130467 E78.4 Screening for malignant neoplasm of colon 083662209 Z12.11 Needs documentat ion [id number] ABENA VALENTINE MD [facility] [address] [place] [address] 02/02/2017 16:05:46 02/03/2017 09:41:42 Urinary tract infectious disease 63105362 N39.0 Urgent mariel bianca to urinate 02286446 R39.15 [id number] LEANNA RIVERA MD [address] [address] 02/24/2017 11:35:02 02/28/2017 15:10:32 Type 2 diabetes mellitus without complication 628041457 E11.9 Patient did not have bloodwork checked as ordered at last visit. Recurrent major depression 45987613 F33.9 Mood and depressive symptoms are stable. Chronic ob structive pulmonary disease 17340236 J44.9 Symptoms stable on current regimen. Screening for malignant neoplasm of breast 526723999 Z12.31 Past due, patient is willing to schedule with today's visit. She missed her scheduled exam that was made at the last visit. Right side d chest pain 764874180 R07.89 Discussed the etiology and course or right rib fracture and costal chondritis . My suspicion for actual fracture is low but I think given her ongoing spinting an x-ray to predict length of recovery and possible underlying PNA is reasonable . Discussed the medication provided, the importance of limiting use, and side effects. F/u in 2 weeks. [id number] MD [facility] [address] [place] [address] 03/02/2017 12:59:17 03/07/2017 13:23:24 Urinary tract infectious disease 04598304 N39.0 Increased frequency of urination 718402307 R35.0 [id number] LEANNA RIVERA MD [address] [address] 03/27/2017 10:11:42 03/28/2017 15:16:04 Gastro-esophageal reflux disease with esophagitis 676696444 K21.0 I discussed the etiology and course [...] pending her evaluation with gastroente rology. Gastroduodenitis 0685354 05 K29.90 Migraine 97210287 G43.90 9 is medical care is complicate d by polypharma [...] simpler regimen. Chronic ob structive pulmonary disease 93313950 J44.9 Symptoms stable on current regimen.st rongly encouraged smoking cessation [id number] MD [facility] [address] [place] [address] 03/28/2017 10:38:47 03/28/2017 17:13:05 Urinary tract infectious disease 82126272 N39.0 Increased frequency of urination 338139350 R35.0 Abdominal pain 95358308 R10.9 Blood in urine 99373403 R31.9 [id number] SHANE PELAYO MD SURGERY SCHEDULE [address] [place] [address] 04/06/2017 07:55:31 04/06/2017 07:55:53 [id number] MD [facility] [address] [place] [address] 04/11/2017 10:23:33 04/11/2017 12:09:46 Abdominal pain 56975761 R10.9 Microscopic hematuria 19 9326505 R31.21 [id number] ABENA VALENTINE MD SURGERY SCHEDULE [address] [place] [address] 04/17/2017 08:43:38 04/17/2017 08:45:17 [id number] ABENA VALENTINE MD [facility] [address] [place] [address] 05/02/2017 12:57:17 05/02/2017 17:34:58 Abdominal pain 45987208 R10.9 [id number] LEANNA RIVERA MD [address] [address] 06/23/2017 10:13:42 06/26/2017 10:11:25 Allergic rhinitis 42030754 J30.9 stable on Singulair Migraine with aura 33612 06 G43.109 I discussed with the patient [...] Type 2 olga betes mellitus without complication 418043071 E11.9 Patient did not have bloodwork checked [...] future visits. Chronic ob structive pulmonary disease 88350032 J44.9 symptoms are baseline and stable on current regimen. No change. Strongly encouraged smoking cessation as above. Moderate dehydration 644 3087608 105 E86.0 I had a conversati on with the patient regarding the chronic dehydratio n that she appears to have. Her mucosal membranes though moist were somewhat tacky, Lipitor cracked, there was some mild skin tenting. I really think that both her smoking and her dehydratio n contribute significan tly to her headaches and encouraged her to work on this. [id number] LEANNA RIVERA MD [address] [address] 06/29/2017 09:52:14 06/30/2017 12:01:34 Dysuria 40216970 R30.0 Spasm of back muscles 20 5317191 M62.830 Discussed the etiology and expected course of back pain due to muscle spasms. Discussed initial conservati ve care with gentle stretching /ROM exercises. Discussed the appropriat e use of NSAIDs/George roids as ordered. Discussed signs and symptoms of worsening or more serious conditions that would warrant reassessme nt in clinic or ED. Chronic pe lvic pain of female 483735515 R10.2 patient notes she has chronic pelvic pain issues and difficulty with urinating and has been placed on Murbach trach long-term by her gynecologi st. She would like a second opinion from a different gynecologi st with [facility] and is requesting a referral for this today. [id number] LEANNA RIVERA MD [address] [place] [address] 07/18/2017 13:29:28 07/19/2017 12:28:30 Complicated migraine 913460688 G43.109 patient has follow-up scheduled with neurology. She's not had recurrence of symptoms. Continue current regimen. Panic attack 891904452 F 41.0 nno recurrence . Continue current anxiolytic and mood medicines. Type 2 olga betes mellitus without complication 541934609 E11.9 patient has tolerated de-escalat ion of [...] anti-glyce silvio. Chronic ob structive pulmonary disease 78703690 J44.9 breathing is at baseline and stable today. No change. Continue to encourage smoking cessation. [id number] LEANNA RIVERA MD [address] [place] [address] 07/25/2017 08:38:12 07/26/2017 08:57:04 Pain of joint of ankle and/or foot 659935620 M25.579 I suspect that this is soft [...] or emergency department . Migraine with aura 23511 06 G43.109 at her last visit we [...] twice a day at her next visit. [id number] HOANG RIVERO APRN CARDIOLOG Y [address] [place] [address] 07/28/2017 14:16:58 07/28/2017 15:40:26 Palpitations 34784676 R00.2 Patch holter monitor Pt was recently hospitaliz ed for a neurologic al event- undetermin ed whether TIA or atypical migraine Echo with bubble study in hospital: EF 50-55%, no intracardi ac shunting. Chest pain 11187412 R07. 9 Pt complains of subscapula r pain with associated diaphoresi s Last stress test greater than 15 years ago Set up outpatient stress test. Pt unsure if anxiety is playing a roll in her symptoms Tobacco de pendence syndrome 80866038 F17.200 smoking cessation counseling [id number] AZAM LOPEZ MD [facility] [address] [place] [address] 07/31/2017 09:03:51 07/31/2017 09:05:58 Palpitations 69022752 R00.2 [id number] SAÚL SIMEON PA-C SAME DAY [address] [address] 08/06/2017 09:12:50 08/06/2017 11:51:19 Pain in left foot 2495204297 09783 M79.554 [id number] LEANNA RIVERA MD [address] [address] 09/07/2017 10:34:03 09/08/2017 13:20:04 Acute maxillary sinusitis 96659708 J01.00 Acute exac erbation of chronic obstructive pulmonary disease 920659387 J44.1 Chronic ob structive pulmonary disease 33743595 J44.9 breathing is at baseline and stable today. No change. Continue to encourage smoking cessation. Gastro-eso phageal reflux disease with esophagitis 505699998 K21.0 I discussed the etiology and course [...] Protonix and Carafate pending her evaluation with rodrick morton. [id number] LEANNA RIVERA MD [address] [address] 09/11/2017 13:36:24 09/12/2017 09:17:10 Acute exacerbation of chronic obstructive pulmonary disease 694147895 J44.1 patient breathing is noted to be dramatical ly improved with the initiation of standard COPD treatment. Patient is tolerating the steroids and the antibiotic s well. discussed ongoing treatment, side effects and signs or symptoms of worsening condition that would warrant reassessme nt. [id number] LEANNA RIVERA MD [address] [address] 11/07/2017 10:11:40 11/08/2017 12:21:40 Nicotine dependence 97390287 F17.200 patient has made some progress with [...] is moving in with her cousin in [place] who does not smoke nor allow smoking in the house. Acute [facility] sinusitis 80932198 J01.00 I discussed with the patient the [...] or the emergency department . Neck pain 01276048 M54.2 I discussed the etiology and course and treatment of spasms in the trapezius and neck muscles as well as their conservati ve treatment with rest, ice, NSAIDs, support and anti-infla mmatories as prescribed . Also described Flexeril use. Active or passive immunization 122190756 Z23 Restless legs 78335529 G 25.81 Controlled with low-dose ropinirole . Continue current regimen. Gastroduodenitis 19660429 K29.90 Dyslipidemia 101301992 E 78.5 Patient continues to tolerate high-inten sity Lipitor well. No history of strokes or heart attacks. History of diabetes mellitus type 2 and strong family history of combined hyperlipid emia and vascular disease. Primary insomnia 4795259 F51.01 As above. [id number] KEVIN CALI PA-C [address] [place] [address] 11/08/2017 10:23:47 11/08/2017 10:37:45 Administration of influenza vaccine 37931314 Z23 [id number] LEANNA RIVERA MD [address] [place] [address] 03/02/2018 09:59:47 03/05/2018 13:35:13 Nicotine dependence 19898537 F17.200 She still needs to stop smoking. We can readdress this once her emotions are more stable. Restless legs 89647637 G 25.81 Controlled with low-dose ropinirole . Continue current regimen. Gastroduodenitis 19660429 K2.90 Symptoms stable. We are going to hold on resuming PPI. Dyslipidemia 879252572 E 78.5 Patient continues to tolerate high-inten sity Lipitor well. No history of strokes or heart attacks. History of diabetes mellitus type 2 and strong family history of combined hyperlipid emia and vascular disease. Primary insomnia 8769810 F51.01 We had been gradually weaning her down and off of the Elavil. However, she had started taking it sporadical ly for sleep. Again, this is a medicine I would like to see her come off of altogether . However, I think stability in dosing will do her more good at this juncture. Generalize d anxiety disorder 94104703 F41.1 Migraine with aura 89734 06 G43.109 Headache recurrence is contribute d by emotional difficulti es, lack of sleep, and likely poor nutrition and hydration. She has a history of similar migraine headaches. Responde well to the below regimen in the past. She has a relative with her today that will be able to help drive her home. Type 2 olga betes mellitus without complication 357106372 E11.9 Not on antiglycem ics at this time. Has been through a period of severe stress. We are going to recheck labs in the near future. Recurrent major depression 46795455 F33.9 See Above. Cerebrovas cular accident 874382139 I63.9 Continue AC with LDA and continue high intensity lipitor. BP is low today. I suspect due to poor hydration and poor nutrition habits associated with her recent emotional trauma. Posttrauma tic stress disorder 07301204 F43.10 Patient has a known history of [...] lack of access to a doctor in [place]. I think that paramount for her stability [...] and has been back on her medicine. [id number] LEANNA RIVERA MD [address] [place] [address] 03/16/2018 10:03:25 03/19/2018 16:17:07 Migraine with aura 7683467 G43.109 Patient would prefer a referral to pain management over neurology at this point. I discussed that I am agreeable with this. I am not sure that they aren't going to recommend similar interventi ons. Posttrauma tic stress disorder 05802253 F43.10 Patient has a known history of [...] Type 2 olga betes mellitus without complication 672680526 E11.9 Not on antiglycem ics at this time. Has been through a period of severe stress. We are going to recheck labs in the near future. [id number] TAYLOR BERG MD PAIN MEDICINE CLOSED [address] [place] [address] 04/03/2018 10:43:42 04/04/2018 11:52:08 Cervico-occipital neuralgia 41857397 M54.81 Cervical spondylosis 387 668197 M47.371 [id number] TAYLOR BERG MD [facility] [address] [place] [address], [facility] [address] [place] [address] 04/18/2018 06:57:41 04/23/2018 13:36:31 Cervical spondylosis 626650863 M47.586 [id number] TAYLOR BERG MD [facility]AL [facility] [address] [place] [address], [facility] [address] [place] [address] 04/19/2018 12:19:22 04/23/2018 14:41:10 Cervical spondylosis 611722231 M47.993 [id number] LEANNA RIVERA MD [address] [address] 04/27/2018 09:04:26 04/30/2018 16:00:34 Migraine with aura 7507767 G43.109 Generalize d anxiety disorder 50385957 F41.1 Posttrauma tic stress disorder 78851918 F43.10 Patient has a known history of PTSD and Major depression and generally labile emotional status. 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 Burr he requests labs to r/o giant cell arteritis She does have some fatigue, headache and axial pain and stiffness which could definitely support this diagnosis he has also referred her to [facility] for opthamolog y eval., scheduled 06/14/18 Migraine without aura 56 911705 G43.009 She has long histor of headaches, so these may not be indication of GCA, will treat with toradol, phenergan which have helped before Hyperlipidemia 57173161 E78.5 Fatigue 84676248 R53.83 multifacto rial. It's been a while since she's had labs, so will go ahead with these to eval fatigue. [id number] LEANNA RIVERA MD [address] [place] [address] 06/26/2018 10:07:36 06/28/2018 12:37:10 Generalized anxiety disorder 28379082 F41.1 FLORY: 05/01/18; UDS: 06/26/18: CSA: 06/26/18 Patient is continuing to tolerate these medicines well. She is not having somnolence , confusion, or adverse affects. Her emotional decompensa tion from late last year is resolved. Primary insomnia 1267236 F51.01 We had been gradually weaning her down and off of the Elavil. However, she had started taking it sporadical ly for sleep. Again, this is a medicine I would like to see her come off of altogether . However, I think stability in dosing will do her more good at this juncture. Dyslipidemia 930714532 E 78.5 Patient continues to tolerate high-inten sity Lipitor well. No history of strokes or heart attacks. History of diabetes mellitus type 2 and strong family history of combined hyperlipid emia and vascular disease. 06-26-2018 HDL cholestero l 38 low triglyceri mariel 133 normal cholestero l 128 normal LDL cholestero l 63 normal Restless legs 41989795 G 25.81 Controlled with low-dose ropinirole . Continue current regimen. Chronic ob structive pulmonary disease 66578128 J44.9 breathing is at baseline and stable today. No change. Continue to encourage smoking cessation. Long-term drug therapy 439374343 Z79.899 See Above Anterior i schemic optic neuropathy of right eye 3218421687 4425064 H47.011 This is a concerning diagnosis. She [...] Aggrenox, or Coumadin. Migraine without aura 56 992538 G43.009 She has long histor of headaches, so these may not be indication of GCA, will treat with toradol, phenergan which have helped before Fatigue 63406676 R53.83 multifacto rial. It's been a while [...] normal GFR 113 normal GFR non-chrissie n cook islander 98 normal Hyperlipidemia 34790491 E78.5 See Above. Cerebrovas cular accident 639009464 I63.9 Hypervolemia 04252159 E8 7.70 Migraine 13899847 G43.90 9 History of transient ischemic attack 170195563 Z86.73 See Above. [id number] LEANNA DAVIDSON MD NEUROLOGY [facility] [address] [place] [address] 07/23/2018 11:28:18 07/24/2018 08:24:50 Snoring 35291096 R06.83 Migraine without aura 56 280744 G43.009 Anterior i schemic optic neuropathy of right eye 9885114158 5370271 H47.808 [id number] LEANNA RIVERA MD [address] [address] 07/27/2018 09:15:54 07/30/2018 15:10:11 Adult health examination 022589369 Z00.00 Discussed routine health and wellness issues. [...] routine. Screening for malignant neoplasm of colon 688690451 Z12.11 COLONOSCOP Y: 04/06/2017 ; 1 Plyp; 5 Yr Rpt DUE: 04/07/22 Screening for malignant neoplasm of breast 573048803 Z12.31 New Sx of Lump in Left breast Menopause 416401117 Z78. 0 Past due, will order today. Patient is agreeable. She is high risk. Screening for cardiovascular system disease 437143994 Z13.6 CT AP W/o for Kidney stones in 03/2017 Documented normal Caliber Aorta Tobacco de pendence syndrome 76055653 F17.290 Continued to encourage smoking cessation. History of smoking 76476 48715 3920298 Z87.891 Counseled patient regarding lung cancer screening with low dose CT. Patient has not had LDCT lung cancer screening in the past and she is interested in starting this.l At [facility] risk for falls 098686425 Z91.81 Recommende d vitamin D3 and calcium supplement ation. Discussed the importance of fall prevention keeping the floors free of tripping hazards including throw rugs and debris, and using safety rails. Screening for disorder 884410838 Z13.9 Dementia Screening Performed Mastodynia of left breast 1833516552 0324882 N64.4 Her exam demonstrat es some mixed features. There is some tender soft tissue edema and fibrocysti c tiss in the area. The area is definitely very tender. Remarkably so. We are going to proceed with a diagnostic workup on that same side. Screening for osteoporosis 465197101 Z13.820 DEXA ordered today. Restless legs 13986441 G 25.81 Controlled with low-dose ropinirole . Continue current regimen. Generalize d anxiety disorder 63831737 F41.1 FLORY: 07/23/18; UDS: 06/26/18: CSA: 06/26/18 Patient is continuing to tolerate these medicines well. She is not having somnolence , confusion, or adverse affects. Her emotional decompensa tion from late last year is resolved. Migraine without aura 56 696280 G43.009 We are going to treat her today for her acute symptoms. I am hopeful that she will respond as she has in the past. I am agreeable with her resuming her Topamax. I do thinks she should touch base with her neurologis t regarding this issue. Hot sweats 269145323 R61 07-27-2018 T3, total 116.0 normal T4,free 0.84 low TSH 1.700 normal ESR, automated 51 high [id number] MADDIE FELICIANO MD [facility] [address] [address] 08/17/2018 10:09:15 08/17/2018 11:47:25 Menopausal syndrome 694360017 N95.8 [id number] LEANNA DAVIDSNO MD NEUROLOGY [facility] [address] [place] [address] 08/24/2018 13:40:50 08/24/2018 15:01:43 Migraine without aura 53649458 G43.009 Non-arteri tic ischemic optic neuropathy 844451318 H47.848 [id number] LEANNA RIVERA MD [address] [address] 09/26/2018 08:50:20 10/01/2018 09:36:41 Tobacco dependence syndrome 22351722 F17.290 Continued to encourage smoking cessation. History of smoking 20120 64017 6930498 Z87.891 Counseled patient regarding lung cancer screening with low dose CT. Patient has not had LDCT lung cancer screening in the past and she is interested in starting this.l Generalize d anxiety disorder 16258645 F41.1 FLORY: 07/23/18; UDS: 06/26/18: CSA: 06/26/18 We are going to change her valium to klonopin. Discussed the risks associated with these medicines. Patient is continuing to tolerate these medicines well. She is not having somnolence , confusion, or adverse affects. Her emotional decompensa tion from late last year is resolved. Acute maxi llary sinusitis 15622247 J01.00 I discussed with the patient the [...] in clinic or the emergency department . [id number] LEANNA DAVIDSON MD NEUROLOGY [facility] [address] [facility] [place] [address] 10/08/2018 11:23:47 10/08/2018 16:06:38 Chronic intractable migraine without aura 3167665007 18592 G43.495 [id number] LEANNA RIVERA MD [address] [address] 12/27/2018 14:16:02 01/01/2019 13:57:34 Tobacco dependence syndrome 52762938 F17.290 Continued to encourage smoking cessation. History of smoking 48125 57020 2157156 Z87.891 Counseled patient regarding lung cancer screening with low dose CT. Patient has not had LDCT lung cancer screening in the past and she is interested in starting this.l Generalize d anxiety disorder 31470527 F41.1 FLORY: 01/05/19; UDS: 06/26/18: CSA: 06/26/18 We are going to change her valium to klonopin. Discussed the risks associated with these medicines. Patient is continuing to tolerate these medicines well. She is not having somnolence , confusion, or adverse affects. Her emotional decompensa tion from late last year is resolved. Acute maxi llary sinusitis 31757223 J01.00 \ Migraine with aura 12739 06 G43.868 [id number] LEANNA RIVERA MD [address] [place] [address] 03/06/2019 10:03:25 03/08/2019 16:49:56 Bilateral foot joint pain 2362687354 1922629 M79.671 I really think the primary cause [...] on 03/06/2019 11:05 AM Type 2 olga betes mellitus without complication 060456556 E11.9 Not at goal and I will [...] normal GFR 110 normal GFR non-chrissie n cook islander 95 normal Recurrent major depression 33211217 F33.9 See Above. Cerebrovas cular accident 992629541 I63.9 Nicotine dependence 5629 4008 F17.200 Discussed [...] c history. Chronic ob structive pulmonary disease 59241638 J44.9 breathing is at baseline and stable today. No change. Continue to encourage smoking cessation. Generalize d anxiety disorder 49536676 F41.1 FLORY: 03/05/2019; UDS: 06/26/18: CSA: 06/26/18 We are going to change her valium to klonopin. Discussed the risks associated with these medicines. Patient is continuing to tolerate these medicines well. She is not having somnolence , confusion, or adverse affects. Her emotional decompensa tion from late last year is resolved. 06-26-2018 Marijuana (THC50) Negative Cocaine (JOW072) Negative Opiates (CUA2276) Negative Amphetamin e (VJZ9535) Negative Methamphet amine (ZUA0507) Negative Phencyclid ine (PCP25) Negative Ectasy (VGDR927) Negative Barbituate s (QTN286) Negative Benzodiaze pines (CZP990) POSITIVE Methadone (SWE358) Negative Tricyclic Antidepres sants (PKH4083) POSITIVE Oxycodone (WKG418) Negative Internal QC Okay Hypothyroidism 17136295 E03.9 03-06-2019 TSH 1.390 normal T4,free 0.73 low Anemia 751069027 D64.9 03-06-2019 white blood cells 8.2 normal red blood cells 5.29 high hemoglobin 13.4 normal hematocrit 41.0 normal platelet count 236 normal iron 64 normal total iron binding cap. 340 normal unsat.iron binding cap. 276 normal % saturation 19 normal folic acid 17.8 normal vitamin B12 480 normal [id number] LEANNA RIVERA MD [address] [employer] [address] 05/07/2019 09:56:14 05/09/2019 12:39:59 Cough 04035984 R05 Has a sore throat 645507 002 J02.9 Acute exac erbation of chronic obstructive pulmonary disease 079032780 J44.1 IMPRESSION : COPD/bronc hitis with increased density in the right middle lobe suggesting infiltrate with atelectasi s Interprete d By: Heber Neumann MD Electronic ally Signed By: Heber Neumann MD on 05/07/2019 11:49 AM [id number] LEANNA RIVERA MD [address] [employer] [place] [address] 06/21/2019 11:05:16 06/21/2019 16:08:30 Acute maxillary sinusitis 14666222 J01.00 Seasonal a llergic rhinitis 610239482 J30.2 [id number] GLENNY MAHAN MD ALLERGY [address] [place] [address] 07/18/2019 08:11:08 07/18/2019 09:05:23 Allergic rhinitis 55254128 J30.9 Perennial with seasonal exacerbati on. Previous testing positive to mold, pollen and dust. we could not perform testing today due to recent zyrtec intake return for allergy testing consider allergy IT as it helped her before. Adverse re action to food 827336931 T78.1XXA we could not perform testing today due to recent zyrtec intake return for allergy testing Adverse re action to drug 77675408 T50.905A avoid pain medicaton containing opioid Recurrent acute sinusitis 997612727 J01.91 anti-aller gy as above recommend allergy IT Chronic ob structive pulmonary disease 46290464 J44.9 continue symbicort 160/4.5 1 puff BID, rinse mouth after use albuterol PRN Cigarette smoker 3928861 7 F17.210 I spent 5 min discussing the risk associated with smoking, which include but not limited to lung cancer, COPD, cardiovasc ular diseases, stroke etc. She tried wellbutrin and chantix, but did not feel that helped. She is down to 1/3 pack a day. I recommend her to quit smoking completely Stress 49665100 Z73.3 she reports lots of stress in life discussed healthy diet, regular exercise and relax technique Gastro-eso phageal reflux disease with esophagitis 992542417 K21.0 she had biopsy done in 2018 and showed chronic inflammati on of esophagus not on any anti-acid medication may need GI evaluation again [id number] GLENNY MAHAN MD ALLERGY [address] [place] [address] 07/22/2019 13:33:11 07/22/2019 14:26:25 Allergic rhinitis 60531562 J30.9 Perennial with seasonal exacerbati on. Previous [...] our office. Adverse re action to food 655486107 T78.1XXA negative to food allergy testingdis cussed food eliminatio n and re-introdu ction strategy Adverse re action to drug 15470176 T50.905D avoid pain medicaton containing opioid Recurrent acute sinusitis 376476393 J01.91 anti-aller gy as above recommend allergy IT Chronic ob structive pulmonary disease 51065920 J44.9 continue symbicort 160/4.5 1 puff BID, rinse mouth after use albuterol PRN Gastro-eso phageal reflux disease with esophagitis 861738501 K21.0 she had biopsy done in 2018 and showed chronic inflammati on of esophagus not on any anti-acid medication may need GI evaluation again [id number] GLENNY MAHAN MD ALLERGY [address] [facility] [address] [place] [address] 08/12/2019 09:34:19 08/12/2019 09:35:05 [id number] MADDIE FELICIANO MD [address] [address] 09/03/2019 14:09:42 09/03/2019 14:37:49 [id number] LARISA JOHNSON APRN [address] [address] 09/10/2019 12:16:37 09/10/2019 12:40:25 [id number] LEANNA RIVERA MD [address] [address] 09/19/2019 15:58:35 09/20/2019 14:51:14 Generalized anxiety disorder 89911475 F41.1 FLORY:06/27; UDS: 06/26/18: CSA: 06/26/18 We are going to change her valium to klonopin. Discussed the risks associated with these medicines. Patient is continuing to tolerate these medicines well. She is not having somnolence , confusion, or adverse affects. Her emotional decompensa tion from late last year is resolved. 06-26-2018 Marijuana (THC50) Negative Cocaine (MGD524) Negative Opiates (RAW9816) Negative Amphetamin e (GXM6979) Negative Methamphet amine (JZS8229) Negative Phencyclid ine (PCP25) Negative Ectasy (DGVZ978) Negative Barbituate s (BLY613) Negative Benzodiaze pines (XJU671) POSITIVE Methadone (MAK235) Negative Tricyclic Antidepres sants (LFO4116) POSITIVE Oxycodone (NGQ333) Negative Internal QC Okay Long-term drug therapy 913291575 Z79.899 See Above History of smoking 47432 43359 2156200 Z87.891 Counseled patient regarding lung cancer screening with low dose CT. Patient has not had LDCT lung cancer screening in the past and she is interested in starting this.l Migraine with aura 39039 06 G43.109 Uncontroll ed type 2 diabetes mellitus 484133064 E11.65 Screening for malignant neoplasm of breast 220351106 Z12.31 New Sx of Lump in Left breast Screening for malignant neoplasm of colon 942298382 Z12.11 COLONOSCOP Y: 04/06/2017 ; 1 Plyp; 5 Yr Rpt DUE: 04/07/22 Screening for malignant neoplasm of cervix 636541716 Z12.4 [id number] MADDIE FELICIANO MD [address] [address] 10/02/2019 13:22:15 10/02/2019 13:45:12 [id number] PADMA SESAY MD [address] [address] 10/16/2019 10:51:45 10/16/2019 11:13:04 [id number] LEANNA RIVERA MD [address] [address] 10/24/2019 14:54:15 10/24/2019 15:07:14 [id number] LARISA JOHNSON APRN [address] [address] 11/06/2019 15:43:02 11/06/2019 15:53:35 [id number] MADDIE FELICIANO MD [address] [address] 11/14/2019 13:05:56 11/14/2019 13:15:50 [id number] LEANNA RIVERA MD [address] [address] 11/21/2019 12:35:33 11/21/2019 12:54:51 [id number] GLENNY MAHAN MD ALLERGY [address] [facility],[address] [place] [address] 11/25/2019 10:16:23 11/25/2019 14:43:44 Allergic rhinitis 13548228 J30.9 Perennial with seasonal exacerbati on. Previous [...] it well Adverse re action to drug 71078298 T50.905D avoid pain medicaton containing opioid Recurrent acute sinusitis 589783436 J01.91 no sinusitis in between anti-aller gy as above continue allergy IT Chronic ob structive pulmonary disease 34688995 J44.9 doing well continue symbicort 160/4.5 1 puff BID, rinse mouth after use albuterol PRN Gastroesop hageal reflux disease without esophagitis 936365104 K21.9 she had biopsy done in 2018 and showed chronic inflammati on of esophagus not on any anti-acid medication may need GI evaluation again [id number] PADMA SESAY MD [address] [address] 11/29/2019 13:04:12 11/29/2019 13:24:36 [id number] PADMA SESAY MD [address] [address] 12/05/2019 12:09:28 12/05/2019 12:23:55 [id number] LEANNA RIVERA MD [address] [place] [address] 12/12/2019 12:57:27 12/12/2019 13:42:17 Generalized anxiety disorder 99061666 F41.1 FLORY:; UDS: 06/26/18: CSA: 06/26/18 Prescripti on # Filled Written Drug Label Qty Days Strength MEDD Prescriber Pharmacy State 3554-10-12 2019-12-02 clonazePAM 90 30 1MG NA Leanna Rivera - [id number] [employer] [place], [place] [address] 6276-09-09 2019-10-14 Pregabalin 90 30 100MG NA Rian Garcia [id number] [employer] [place], [place] [address] 9275-09-04 2019-10-25 clonazePAM 90 30 1MG NA Leanna Sendah Direct [id number] [employer] [place], [place] [address] 8019-08-12 2019-10-01 Pregabalin 90 30 75MG NA Rian Garcia [id number] [employer] [place], [place] [address] 2296-08-03 2019-09-23 Gabapentin 120 30 800MG NA Rian Garcia [id number] [employer] [place], [place] [address] 9272-07-30 2019-09-19 clonazePAM 90 30 1MG NA Leanna Rivera [employer] [id number] [employer] [place], [place] [address] 2019-08-21 2019-06-21 Gabapentin 120 30 800MG NA Rian Garcia [id number] [employer] [place], [place] [address] 2019-08-21 2019-08-21 clonazePAM 90 30 1MG NA Leanna Broadersheetjanelle [employer] [id number] [employer] [place], [place] [address] 2019-07-23 2019-06-21 Gabapentin 120 30 800MG NA Rian Garcia [id number] [employer] [place] 1 Long-term drug therapy 777572949 Z79.899 Uncontroll ed type 2 diabetes mellitus 414975411 E11.65 Migraine with aura 36696 06 G43.109 History of smoking 99452 54116 2780821 Z87.891 Screening for malignant neoplasm of breast 627781770 Z12.31 New Sx of Lump in Left breast Screening for malignant neoplasm of colon 396606495 Z12.11 COLONOSCOP Y: 04/06/2017 ; 1 Plyp; 5 Yr Rpt DUE: 04/07/22 Screening for malignant neoplasm of cervix 775279811 Z12.4 Administra tion of influenza vaccine 05893737 Z23 Memory impairment 870620 006 R41.3 [id number] LARISA JOHNSON APRN [address] [address] 12/26/2019 12:58:33 12/26/2019 13:52:39 [id number] PADMA SESAY MD [address] [address] 01/06/2020 15:23:01 01/06/2020 16:40:44 Herpes zoster 4368037 B02.9 [id number] LEANNA RIVERA MD [address] [address] 01/17/2020 13:26:28 01/17/2020 13:33:57 [id number] LEANNA RIVERA MD [address] [address] 01/23/2020 15:29:54 01/25/2020 19:51:02 Chronic pain syndrome 741083733 G89.4 Migraine 19537615 G43.90 9 Generalize d anxiety disorder 64884770 F41.1 FLORY:; UDS: 06/26/18: CSA: 06/26/18 Prescripti on # Filled Written Drug Label Qty Days Strength MEDD Prescriber Pharmacy State 7848-10-12 2019-12-02 clonazePAM 90 30 1MG NA Leanna Rivera - [id number] [employer] [facility] [address] 8503-09-09 2019-10-14 Pregabalin 90 30 100MG NA Rian Garcia - [id number] [employer] [place], [place] [address] 9498-09-04 2019-10-25 clonazePAM 90 30 1MG NA Leanna Rivera - [id number] [employer] [place], [place] [address] 0340-08-12 2019-10-01 Pregabalin 90 30 75MG NA Rian Garcia [employer] [id number] [employer] [place], [place] [address] 0138-08-03 2019-09-23 Gabapentin 120 30 800MG NA Rian Garcia [id number] [employer] [place], [place] [address] 5863-07-30 2019-09-19 clonazePAM 90 30 1MG NA Leanna Garvey [id number] [employer] [place], [place] [address] 2019-08-21 2019-06-21 Gabapentin 120 30 800MG NA Rian Garcia [employer] [id number] [employer] [place], [place] [address] 2019-08-21 2019-08-21 clonazePAM 90 30 1MG NA Leanna Rivera - [id number] [employer] [place], [place] [address] 2019-07-23 2019-06-21 Gabapentin 120 30 800MG NA Rian Garcia [employer] [id number] [employer] [place], [place] 1 [id number] MADDIE FELICIANO MD [address] [place] [address] 01/31/2020 14:33:12 01/31/2020 14:42:36 [id number] LEANNA RIVERA MD [address] [place] [address] 02/10/2020 14:04:40 02/10/2020 14:30:36 [id number] MADDIE FELICIANO MD [address] [facility] [place] [address] 02/25/2020 11:16:29 02/25/2020 11:29:32 [id number] MADDIE FELICIANO MD [address] [place] [address] 03/02/2020 12:43:01 03/02/2020 12:59:45 [id number] LEANNA RIVERA MD [address] [place] [address] 03/12/2020 09:50:53 03/12/2020 10:53:14 Chronic pain syndrome 361218979 G89.4 FLORY:2 03/12; UDS: 09/19/19: CSA: 09/23/19 QTY DAYS STRENGTH MEDD PRESCRIBER PHARMACY STATE 02-22-2020 01-23-2020 clonazePAM 90 30 1MG NA Leanna Rivera - [id number] [employer] Jean[place]ric[place]ar[place] [id number] 02-29-2020 02-28-2020 oxyCODONEH CL/ACETAMI NOPHEN 15 30 5MG-325MG 3.75 Daniel Criss - [id number] [employer] [place] [address] 03-28-2019 12-27-2018 clonazePAM 90 30 1MG NA Leanna Rivera - [id number] [employer] [place] [address] 03-28-2019 03-28-2019 Gabapentin 120 30 800MG NA Rian Garcia [id number] [employer] [place] [address] 04-24-2019 03-06-2019 clonazePAM 90 30 1MG NA Leanna Rivera [employer] [id number] [employer] [place] [address] 04-24-2019 03-28-2019 Gabapentin 120 30 800MG NA Rian Garcia [employer] [id number] [employer] Geoffreymarco [place] [address] 05-24-2019 03-28-2019 Gabapentin 120 30 800MG NA Rian Garcia [employer] [id number] [employer] [place], [place] [address] 05-25-2019 03-06-2019 clonazePAM 90 30 1MG NA Leanna Rivera [employer] [id number] [employer] [place], [place] 1 [address] 06-21-2019 03-06-2019 clonazePAM 90 30 1MG NA Leanna Sendah Direct [id number] [employer] [place] [address] 06-21-2019 06-21-2019 Gabapentin 120 30 800MG NA Rian Garcia [employer] [id number] [employer] [place] 1 Migraine 40126928 G43.90 9 Excellent response to recent injection therapy by pain management . Symptoms are essentiall y resolved on current regimen. No change. Generalize d anxiety disorder 22949150 F41.1 FLORY:02/21 03/12; UDS: 09/19/19: CSA: 09/23/19 QTY DAYS STRENGTH MEDD PRESCRIBER PHARMACY STATE 02-22-2020 01-23-2020 clonazePAM 90 30 1MG NA Leanna MayFederated Sample [id number] [employer] [place] [address] 02-29-2020 02-28-2020 oxyCODONEH CL/ACETAMI NOPHEN 15 30 5MG-325MG 3.75 Daniel Criss - [id number] [employer] [place], [place] [address] 03-28-2019 12-27-2018 clonazePAM 90 30 1MG NA Leanna Sendah Direct [id number] [employer] [place], [place] [address] 03-28-2019 03-28-2019 Gabapentin 120 30 800MG NA Rian Garcia [employer] [id number] [employer] [place] [address] 04-24-2019 03-06-2019 clonazePA M90 30 1MG NA Leanna Sendah Direct [id number] [employer] [place], [place] [address] 04-24-2019 03-28-2019 Gabapentin 120 30 800MG NA Rian Garcia [employer] [id number] [employer] [place] [address] 05-24-2019 03-28-2019 Gabapentin 120 30 800MG NA Rian R17 [id number] [employer] [place] [address] 05-25-2019 03-06-2019 clonazePA M90 30 1MG NA Leanna Rivera - [id number] [employer] [place] [address] 06-21-2019 03-06-2019 clonazePAM 90 30 1MG NA Leanna Garvey [id number] [employer] [place] [address] 06-21-2019 06-21-2019 Gabapentin 120 30 800MG NA Rian Garcia - [id number] [employer] [place] 1 MEDS: Klonopin 1mg TID, Elavil 50mg qD, Zoloft 200 daily, Topamax 100 twice a day Uncontroll ed type 2 diabetes mellitus 092376187 E11.65 Since her last visit, the hope [...] estimated avg. glucose 160 normal MEDS: Dyslipidemia [id number] E 78.5 06-26-2018 HDL cholestero l 38 low triglyceri mariel 133 normal cholestero l 128 normal LDL cholestero l 63 normal MEDS: Lipitor 80 Chronic ob structive pulmonary disease 75481482 J44.9 breathing is at baseline and stable today. No change. Continue to encourage smoking cessation. 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 History of cerebrovascular accident 727557579 Z86.73 MEDS: Lipitor 80, ASA 81, Restless legs 13778748 G 25.81 Controlled with low-dose ropinirole . Continue current regimen. Gastro-eso phageal reflux disease with esophagitis 851400780 K21.00 See Above. Empiric trial with plan to F/u in 2 weeks. If not improving considerin g Cardiac evaluation . [id number] MADDIE FELICIANO MD [address] [address] 7 03/19/2020 14:54:45 03/19/2020 15:26:31 [id number] LEANNA RIVREA MD [address] [address] 7 03/27/2020 14:27:37 03/27/2020 14:39:30 [id number] LARISA JOHNSON STONE FABRICATOR [address] [address] 7 04/08/2020 10:55:14 04/08/2020 11:06:08 [id number] LARISA JOHNSON STONE FABRICATOR [address] [address] 7 04/23/2020 13:11:53 04/23/2020 13:25:08 [id number] LARISA JOHNSON STONE FABRICATOR [address] [address] 7 05/01/2020 15:24:17 05/01/2020 15:36:35 [id number] LEANNA RIVERA MD [address] [address] 7 05/05/2020 14:33:36 05/05/2020 14:59:51 [id number] LEANNA RIVERA MD [address] [address]596 7 05/14/2020 11:32:15 05/14/2020 11:42:14 [id number] PADMA SESAY MD [address] [address] 7 05/21/2020 11:58:25 05/21/2020 12:09:21 [id number] LARISA JOHNSON APRN [address] [address] 7 05/26/2020 16:22:41 05/26/2020 16:38:21 [id number] LEANNA RIVERA MD [address] [address] 7 05/28/2020 12:28:31 05/28/2020 13:50:47 Gastro-esophageal reflux disease with esophagitis 421291515 K21.00 See Above. Empiric trial with plan to F/u in 2 weeks. If not improving considerin g Cardiac evaluation . History of cerebrovascular accident 704974820 Z86.73 MEDS: Lipitor 80, ASA 81, Uncontroll ed type 2 diabetes mellitus 652039804 E11.65 started daily metformin after her last [...] 160 normal MEDS: Generalize d anxiety disorder 78575861 F41.1 FLORY:05/28; UDS: 09/19/19: CSA: 09/23/19 MEDS: Klonopin 1mg TID, Elavil 50mg qD, Zoloft 200 daily, Topamax 100 twice a day Dyslipidemia 679051306 E 78.5 06-26-2018 HDL cholestero l 38 low triglyceri mariel 133 normal cholestero l 128 normal LDL cholestero l 63 normal MEDS: Lipitor 80 Chronic ob structive pulmonary disease 21345670 J44.9 breathing is at baseline and stable today. No change. Continue to encourage smoking cessation. MEDS: Trelegy, Albuterol Chronic pain syndrome 37 8724558 G89.4 FLORY:12 03/12; UDS: 09/19/19: CSA: 09/23/19 Migraine 59891181 G43.90 9 Restless legs 01648123 G 25.81 Controlled with low-dose ropinirole . Continue current regimen. [id number] LEANNA RIVERA MD [address] [address] 7 06/03/2020 13:21:39 06/03/2020 13:40:43 [id number] DOLLY BROWN PA-C SAME DAY [address] [address] 7 06/05/2020 13:18:42 06/05/2020 15:04:52 Cough 93161196 R05 Acute exac erbation of chronic obstructive pulmonary disease 228321528 J44.1 Suspect COPD exacerbati on but cannot rule out COVID 19 Will send COVID 19 swab today. If positive and test returned within 10 days she would be a candidate for infusion. O2 92% on RA here with mild dyspnea Will start prednisone and doxycyclin e She will return for shortness of breath, fever, worsening symptoms Continue mucinex [id number] LARISA JOHNSON APRN [address] [address] 7 06/08/2020 14:33:44 06/08/2020 14:46:43 [id number] LEANNA RIVERA MD [address] [address] 7 06/17/2020 09:44:50 06/17/2020 15:05:06 Uncontrolled type 2 diabetes mellitus 357318630 E11.65 03-12-2020 glyco HGB A1C 7.9 high estimated avg. glucose 180 normal 09-23-2019 glyco HGB A1C 7.2 high estimated avg. glucose 160 normal MEDS: Seasonal a llergic rhinitis 127820325 J30.2 Migraine 61684166 G43.90 9 Neck pain 10612156 M54.2 undergoing injection therapy with Dr. Kahn tomorrow. Hospital i npatient stay within past 30 days [id number] 106 Z76.89 [id number] LEANNA RIVERA MD [address] [address] 7 06/22/2020 11:33:09 06/22/2020 11:42:10 [id number] SAÚL SIMEON PA-C SAME DAY [address] [address] 7 06/26/2020 13:53:02 06/26/2020 15:36:35 Nausea and vomiting 58547244 R11.2 Dehydration 82097337 E86 .0 [id number] PADMA SESAY MD [address] [address] 7 06/30/2020 11:46:20 06/30/2020 11:57:06 [id number] MADDIE FELICIANO MD [address] [address] 7 07/06/2020 13:35:16 07/06/2020 13:47:14 [id number] LEANNA RIVERA MD [address] [address] 7 07/10/2020 14:38:47 07/10/2020 14:52:05 [id number] LEANNA RIVERA MD [address] [address] 7 07/21/2020 14:36:15 07/21/2020 15:19:45 Uncontrolled type 2 diabetes mellitus 440288600 E11.65 at her last visit we had been concerned about her worsening hemoglobin A1c. We had started her on Trulicity: 05/28/20: HEMOGLOBIN A1C = 7.8 03-12-2020 glyco HGB A1C 7.9 high estimated avg. glucose 180 normal 09-23-2019 glyco HGB A1C 7.2 high estimated avg. glucose 160 normal MEDS: Migraine 01773853 G43.90 9 Seasonal a llergic rhinitis 920033946 J30.2 Neck pain 20335394 M54.2 undergoing injection therapy with Dr. Kahn tomorrow. Generalize d anxiety disorder 61647359 F41.1 FLORY:05/28; UDS: 09/19/19: CSA: 09/23/19 MEDS: Klonopin 1mg TID, Elavil 50mg qD, Zoloft 200 daily, Topamax 100 twice a day Abdominal pain 63379015 R10.9 Essential hypertension 08944843 I10 03/12/20: CREATININE = 0.63, GFR = 95 HEMOGLOBIN = 13.4, HEMATOCRIT = 41.2, PLATELET 225, THE VBC = 8 point Neuropathy 305604724 G62 .9 Hypothyroidism 23157567 E03.9 03-06-2019 TSH 1.390 normal T4,free 0.73 low [id number] PADMA SESAY MD [address] [address] 7 07/24/2020 09:32:04 07/24/2020 09:40:06 [id number] MADDIE FELICIANO MD [address] [address] 7 07/29/2020 12:31:25 07/29/2020 12:47:52 [id number] MADDIE FELICIANO MD [address] [address]31 7 08/04/2020 13:14:46 08/04/2020 13:31:10 [id number] MADDIE FELICIANO MD [address] [address]87[address]81 7 08/06/2020 15:03:22 08/06/2020 15:22:36 [id number] PADMA SESAY MD [address] [address]99[address]83 7 08/18/2020 13:40:23 08/18/2020 13:55:01 [id number] LEANNA RIVERA MD [address] [address]47[address]185 7 08/26/2020 09:52:37 08/27/2020 14:50:52 Uncontrolled type 2 diabetes mellitus 398276705 E11.65 at her last visit we had been concerned about her worsening hemoglobin A1c. We had started her on Trulicity: 07/21/20: Hemoglobin A1c = 7.7 05/28/20: HEMOGLOBIN A1C = 7.8 03-12-2020 glyco HGB A1C 7.9 high estimated avg. glucose 180 normal 09-23-2019 glyco HGB A1C 7.2 high estimated avg. glucose 160 normal MEDS: Metformin 750 BID, Trulicity 3mg Weekly Generalize d anxiety disorder 75260283 F41.1 FLORY:08/27; UDS: 09/19/19: CSA: 09/23/19 Anxiety is stable on her current regimen.ME DS: Klonopin 1mg TID, Elavil 50mg qD, Zoloft 200 daily, Topamax 100 twice a day Migraine 64176869 G43.90 9 07/21/20:CRE ATININE = 0.70, BUN = 4, GFR = 92, GLUCOSE = 91TSH =1.47AST = 19, ALP = 18, TOTAL BILIRUBIN = <0.2,LIPAS E/AMYLASE = normalHEMO GLOBIN = 13.7, HEMATOCRIT = 42.4, WBC = 8.0, PLATELETS = 234B12/FOL ATE = normal Neck pain 70234924 M54.2 Continuing to follow with Pain management . She is not wanting to go back to Neurology for now. She does not believe that she will be able to afford injections which is what they had recommende d. Essential hypertension 25547832 I10 03/12/20: CREATININE = 0.63, GFR = 95 HEMOGLOBIN = 13.4, HEMATOCRIT = 41.2, PLATELET 225, THE VBC = 8 point Neuropathy 175931776 G62 .9 Hypothyroidism 09968557 E03.9 03-06-2019 TSH 1.390 normal T4,free 0.73 low [id number] MADDIE FELICIANO MD [address] [employer] [address] 7 09/03/2020 10:18:09 09/03/2020 10:29:17 [id number] LEANNA RIVERA MD [address] [employer] [employer] [employer] [address] 7 09/10/2020 11:52:41 09/10/2020 12:05:23 [id number] LEANNA RIVERA MD [address] [address]347 7 09/15/2020 09:09:57 09/15/2020 09:22:57 [id number] MADDIE FELICIANO MD [address] [address]-139 7 09/22/2020 10:37:36 09/22/2020 10:50:55 [id number] PADMA SESAY MD [address] 665[address]845 7 10/01/2020 11:42:16 10/01/2020 11:50:00 [id number] TERESA ARANDA PA-C SAME DAY [address] [address] 7 10/08/2020 09:43:48 10/08/2020 13:10:25 Headache 73389405 R51.9 Encouraged hydration, dark/cool/ quiet room. Keep neurology appointmen t. Go to ER if symptoms persist/wo rsen. [id number] LARISA JOHNSON APRN [address] [address]-537 7 10/23/2020 11:25:52 10/23/2020 11:42:37 [id number] LEANNA RIVERA MD [address] 35452-427 7 10/27/2020 09:40:28 10/28/2020 16:14:23 Migraine 67996875 G43.909 07/21/20:CRE ATININE = 0.70, BUN = 4, GFR = 92, GLUCOSE = 91TSH =1.47AST = 19, ALP = 18, TOTAL BILIRUBIN = <0.2,LIPAS E/AMYLASE = normalHEMO GLOBIN = 13.7, HEMATOCRIT = 42.4, WBC = 8.0, PLATELETS = 234B12/FOL ATE = normal Uncontroll ed type 2 diabetes mellitus 661065748 E11.65 Started patient on Trulicity earlier in the spring. A1c trending down at last F/u.07/21/20 : Hemoglobin A1c = 7.7 05/28/20: HEMOGLOBIN A1C = 7.8 03-12-2020 glyco HGB A1C 7.9 high estimated avg. glucose 180 normal 09-23-2019 glyco HGB A1C 7.2 high estimated avg. glucose 160 normal MEDS: Metformin 750 BID, Trulicity 3mg Weekly Generalize d anxiety disorder 27122485 F41.1 FLORY:08/27; UDS: 09/19/19: CSA: 09/23/19 Anxiety is stable on her current regimen.ME DS: Klonopin 1mg TID, Elavil 50mg qD, Zoloft 200 daily, Topamax 100 twice a day Neck pain 14071213 M54.2 Continuing to follow with Pain management . She is not wanting to go back to Neurology for now. She does not believe that she will be able to afford injections which is what they had recommende d. Essential hypertension 53301900 I10 BP: 102/62, at goal 10/19/2020: BP at ED was 121/71 07/21/2020: CREATININE = 0.7, BUN = 4, GLUCOSE = 91, (CMP = essentiall y normal) CBC = normal (low MCV) 03/12/20: CREATININE = 0.63, GFR = 95 HEMOGLOBIN = 13.4, HEMATOCRIT = 41.2, PLATELET 225, THE VBC = 8 point Neuropathy 189984909 G62 .9 Hypothyroidism 98119951 E03.9 07/21/2020: TSH = 1.47 03-06-2019 TSH 1.390 normal T4,free 0.73 low Dyslipidemia 882011217 E 78.5 03/12/2020: TOTAL CHOLESTERO L = 147, LDL = 67, HDL = 37, TRIGLYCERI MARIEL = 217 06-26-2018 HDL cholestero l 38 low triglyceri mariel 133 normal cholestero l 128 normal LDL cholestero l 63 normal MEDS: Lipitor 80 Gastroesop hageal reflux disease without esophagitis 053680845 K21.9 Restless legs 10715561 G 25.81 Controlled with low-dose ropinirole . Continue current regimen. Chronic ob structive pulmonary disease 15731908 J44.9 breathing is at baseline and stable today. No change. Continue to encourage smoking cessation. MEDS: Trelegy, Albuterol [id number] GLENNY MAHAN MD ALLERGY [address] [facility] ,[address] [place] [address] 10/28/2020 12:17:11 10/30/2020 15:22:59 [id number] PADMA SESAY MD [address] [address] 7 11/02/2020 14:38:47 11/02/2020 14:51:32 [id number] PADMA SESAY MD [address] [address] 7 11/16/2020 09:58:21 11/16/2020 10:13:45 [id number] MADDIE FELICIANO MD [address] [address] 7 11/23/2020 11:21:00 11/23/2020 11:42:05 [id number] GRAEME GARRETT DO [address] [address]-152 7 01/07/2021 14:05:18 01/07/2021 14:16:31 [id number] MADDIE FELCIIANO MD [address] [address] 7 01/19/2021 15:11:27 01/19/2021 15:21:32 [id number] LEANNA RIVERA MD [address] [address]231 7 01/26/2021 09:48:43 01/27/2021 15:37:54 Restless legs 65620575 G25.81 Increasing ropinorolo le. Migraine 06598396 G43.90 9 07/21/20:CRE ATININE = 0.70, BUN = 4, GFR = 92, GLUCOSE = 91TSH =1.47AST = 19, ALP = 18, TOTAL BILIRUBIN = <0.2,LIPAS E/AMYLASE = normalHEMO GLOBIN = 13.7, HEMATOCRIT = 42.4, WBC = 8.0, PLATELETS = 234B12/FOL ATE = normal Uncontroll ed type 2 diabetes mellitus 109339773 E11.65 Started patient on Trulicity earlier in the spring. A1c trending down at last F/u.07/21/20 : Hemoglobin A1c = 7.7 05/28/20: HEMOGLOBIN A1C = 7.8 03-12-2020 glyco HGB A1C 7.9 high estimated avg. glucose 180 normal 09-23-2019 glyco HGB A1C 7.2 high estimated avg. glucose 160 normal MEDS: Metformin 750 BID, Trulicity 3mg Weekly Generalize d anxiety disorder 24005061 F41.1 FLORY:08/27; UDS: 09/19/19: CSA: 09/23/19 Anxiety is stable on her current regimen.ME DS: Klonopin 1mg TID, Elavil 50mg qD, Zoloft 200 daily, Topamax 100 twice a day Neck pain 81038761 M54.2 Continuing to follow with Pain management . She is not wanting to go back to Neurology for now. She does not believe that she will be able to afford injections which is what they had recommende d. Essential hypertension 43597583 I10 BP: 102/62, at goal 10/19/2020: BP at ED was 121/71 07/21/2020: CREATININE = 0.7, BUN = 4, GLUCOSE = 91, (CMP = essentiall y normal) CBC = normal (low MCV) 03/12/20: CREATININE = 0.63, GFR = 95 HEMOGLOBIN = 13.4, HEMATOCRIT = 41.2, PLATELET 225, THE VBC = 8 point Neuropathy 391766617 G62 .9 Hypothyroidism 67746497 E03.9 07/21/2020: TSH = 1.47 03-06-2019 TSH 1.390 normal T4,free 0.73 low Dyslipidemia 147965029 E 78.5 03/12/2020: TOTAL CHOLESTERO L = 147, LDL = 67, HDL = 37, TRIGLYCERI MARIEL = 217 06-26-2018 HDL cholestero l 38 low triglyceri mariel 133 normal cholestero l 128 normal LDL cholestero l 63 normal MEDS: Lipitor 80 Gastroesop hageal reflux disease without esophagitis 794186994 K21.9 Chronic ob structive pulmonary disease 25497243 J44.9 breathing is at baseline and stable today. No change. Continue to encourage smoking cessation. MEDS: Trelegy, Albuterol [id number] MADDIE FELICIANO MD [address] [place] [address] 02/02/2021 15:08:14 02/02/2021 15:20:24 [id number] PADMA SESAY MD [address] [address] 7 02/10/2021 09:53:26 02/10/2021 10:41:21 [id number] PADMA SESAY MD [address] [address] 7 02/22/2021 11:32:24 02/22/2021 11:44:01 [id number] LEANNA RIVERA MD [address] [address] 7 03/30/2021 08:09:42 03/31/2021 09:26:29 Type 2 diabetes mellitus without complication 064718476 E11.9 Not at goal and I will [...] normal GFR 110 normal GFR non-chrissie n cook islander 95 normal [facility] hypothyroidism 12387165 E02 [id number] RAHUL PARISH PA-C SAME DAY [address] [address] 7 04/12/2021 08:58:47 04/16/2021 07:09:19 Fall R29.6 Injury of head 64048827 S09.90XA Dizziness 929400930 R42 At [facility] risk of polypharmacy 906406191 Z91.89 [id number] FREDIS HERNANDEZ MD [address] [address] 7 04/20/2021 09:48:02 04/22/2021 16:20:56 Orthostatic hypotension 91986638 I95.1 [facility]clin[facility] hypothyroidism 89548913 E02 Dizziness 764915862 R42 Nausea and vomiting 1693 1999 R11.2 Migraine 61434583 G43.90 9 worseningt akes topomax, Emgalityfo llows with neurology Restless legs 25485102 G 25.81 was previously on requipstop ped due to sedation/d izziness Headache 93219351 R51.9 CT head normalstil l severe headache after recurrent fallsnause a and vomiting Dehydration 84720052 E86 .0 will return to clinic tomorrow for IVF [id number] FREDIS HERNANDEZ MD [address] [address] 7 04/21/2021 13:26:31 04/23/2021 08:57:18 Nausea 547640493 R11.0 Nausea and vomiting 1691999 R11.2 improved [id number] LEANNA RIVERA MD [address] [address] 7 05/10/2021 09:31:01 05/10/2021 09:43:53 [id number] GLENNY MAHAN MD ALLERGY [address] [facility],[address] [place] [address] 05/11/2021 15:24:10 05/12/2021 15:50:25 [id number] FREDIS HERNANDEZ MD [address] [address] 7 05/18/2021 12:45:30 05/18/2021 13:30:45 [id number] LEANNA RIVERA MD [address] [address] 7 06/10/2021 12:43:10 06/14/2021 16:58:28 Type 2 diabetes mellitus without complication 627480149 E11.9 With regards to her diabetes, my [...] normal GFR 110 normal GFR non-chrissie n cook islander 95 normal [facility]clin[facility] hypothyroidism 95262798 E02 Generalize d anxiety disorder 84574566 F41.1 FLORY:08/27; UDS: 09/19/19: CSA: 09/23/19 Anxiety is stable on her current regimen.ME DS: Klonopin 1mg TID, Elavil 50mg qD, Zoloft 200 daily, Topamax 100 twice a day Essential hypertension 82129075 I10 BP: 100/60, low, 10/19/2020: BP at ED was 121/71 07/21/2020: CREATININE = 0.7, BUN = 4, GLUCOSE = 91, (CMP = essentiall y normal) CBC = normal (low MCV) 03/12/20: CREATININE = 0.63, GFR = 95 HEMOGLOBIN = 13.4, HEMATOCRIT = 41.2, PLATELET 225, THE VBC = 8 point Chronic ob structive pulmonary disease 12052220 J44.9 breathing is at baseline and stable today. No change. Continue to encourage smoking cessation. MEDS: Trelegy, Albuterol [id number] LEANNA RIVERA MD [address] [address] 7 05/28/2021 11:51:05 06/01/2021 11:17:50 [id number] PADMA SESAY MD [address] [address] 7 06/28/2021 10:14:19 06/28/2021 10:25:15 [id number] LEANNA RIVERA MD [address] [address] 7 07/07/2021 08:55:28 07/14/2021 15:08:27 Essential hypertension 38274138 I10 BP: 100/60, low, 10/19/2020: BP at ED was 121/71 07/21/2020: CREATININE = 0.7, BUN = 4, GLUCOSE = 91, (CMP = essentiall y normal) CBC = normal (low MCV) 03/12/20: CREATININE = 0.63, GFR = 95 HEMOGLOBIN = 13.4, HEMATOCRIT = 41.2, PLATELET 225, THE VBC = 8 point Chronic ob structive pulmonary disease 74640894 J44.9 breathing is at baseline and stable today. No change. Continue to encourage smoking cessation. MEDS: Trelegy, Albuterol Generalize d anxiety disorder 42186475 F41.1 FLORY:08/27; UDS: 09/19/19: CSA: 09/23/19 Anxiety is stable on her current regimen.ME DS: Klonopin 1mg TID, Elavil 50mg qD, Zoloft 200 daily, Topamax 100 twice a day Spasm of back muscles 20 1571379 M62.830 Discussed the etiology and expected course of back pain due to muscle spasms. Discussed initial conservati ve care with gentle stretching /ROM exercises. Discussed the appropriat e use of NSAIDs/George roids as ordered. Discussed signs and symptoms of worsening or more serious conditions that would warrant reassessme nt in clinic or ED. Migraine 02430029 G43.90 9 07/21/20:CRE ATININE = 0.70, BUN = 4, GFR = 92, GLUCOSE = 91TSH =1.47AST = 19, ALP = 18, TOTAL BILIRUBIN = <0.2,LIPAS E/AMYLASE = normalHEMO GLOBIN = 13.7, HEMATOCRIT = 42.4, WBC = 8.0, PLATELETS = 234B12/FOL ATE = normal [id number] LEANNA RIVERA MD [address] [place] [address] 07/13/2021 10:02:29 07/13/2021 10:15:04 [id number] LEANNA RIVERA MD [address] [place] [address] 7 07/26/2021 13:38:30 07/30/2021 13:05:59 Generalized anxiety disorder 21074851 F41.1 FLORY:08/27; UDS: 09/19/19: CSA: 09/23/19 Anxiety is stable on her current regimen.ME DS: Klonopin 1mg TID, Elavil 50mg qD, Zoloft 200 daily, Topamax 100 twice a day Type 2 olga betes mellitus without complication 668392521 E11.9 She describes that since the past [...] 1: A1C = 7.4 Migraine with aura 61431 06 G43.109 Essential hypertension 42038279 I10 BP: 100/60, low, 10/19/2020: BP at ED was 121/71 07/21/2020: CREATININE = 0.7, BUN = 4, GLUCOSE = 91, (CMP = essentiall y normal) CBC = normal (low MCV) 03/12/20: CREATININE = 0.63, GFR = 95 HEMOGLOBIN = 13.4, HEMATOCRIT = 41.2, PLATELET 225, THE VBC = 8 point Chronic ob structive pulmonary disease 10150702 J44.9 breathing is at baseline and stable today. No change. Continue to encourage smoking cessation. MEDS: Trelegy, Albuterol Spasm of back muscles 20 9833851 M62.830 Discussed the etiology and expected course of back pain due to muscle spasms. Discussed initial conservati ve care with gentle stretching /ROM exercises. Discussed the appropriat e use of NSAIDs/George roids as ordered. Discussed signs and symptoms of worsening or more serious conditions that would warrant reassessme nt in clinic or ED. Migraine 47969418 G43.90 9 07/21/20:CRE ATININE = 0.70, BUN = 4, GFR = 92, GLUCOSE = 91TSH =1.47AST = 19, ALP = 18, TOTAL BILIRUBIN = <0.2,LIPAS E/AMYLASE = normalHEMO GLOBIN = 13.7, HEMATOCRIT = 42.4, WBC = 8.0, PLATELETS = 234B12/FOL ATE = normal [id number] MADDIE FELICIANO MD [address] [address] 08/05/2021 13:48:15 08/05/2021 14:37:48 [id number] FREDIS HERNANDEZ MD [address] [address] 08/19/2021 09:12:01 08/19/2021 10:28:17 [id number] LEANNA RIVERA MD [address] [address] 7 09/02/2021 09:18:45 09/02/2021 09:48:13 [id number] LEANNA RIVERA MD [address] [address] 7 09/06/2021 09:20:07 09/08/2021 14:19:28 Generalized anxiety disorder 86754826 F41.1 FLORY:08/27; UDS: 09/19/19: CSA: 09/23/19 Anxiety is stable on her current regimen.ME DS: Klonopin 1mg TID, Elavil 50mg qD, Zoloft 200 daily, Topamax 100 twice a day Type 2 olga betes mellitus without complication 022329974 E11.9 06/10/2021: A1C = 6.001-15-2 020 1: A1C = 7.4 Migraine with aura 60427 06 G43.109 Essential hypertension 70661787 I10 BP:06/11/19 22: CREATININE = 0.61, GFR [...] 8 point Chronic ob structive pulmonary disease 58651331 J44.9 breathing is at baseline and stable today. No change. Continue to encourage smoking cessation. MEDS: Trelegy, Albuterol Spasm of back muscles 20 9966397 M62.830 Discussed the etiology and expected course of back pain due to muscle spasms. Discussed initial conservati ve care with gentle stretching /ROM exercises. Discussed the appropriat e use of NSAIDs/George roids as ordered. Discussed signs and symptoms of worsening or more serious conditions that would warrant reassessme nt in clinic or ED. Migraine 80555611 G43.90 9 Screening for malignant neoplasm of colon 365007858 Z12.11 COLONOSCOP Y: 04/06/2017 ; 1 Plyp; 5 Yr Rpt DUE: 04/07/22 [id number] NIRMAL DODGE APRN [address] [address] 7 09/15/2021 08:51:17 09/15/2021 09:11:34 [id number] LEANNA RIVERA MD [address] [address] 7 10/20/2021 10:42:29 10/22/2021 08:49:25 Generalized anxiety disorder 84898672 F41.1 FLORY:Anx humble is stable on her current regimen.ME DS: Klonopin 1mg TID, Elavil 50mg qD, Zoloft 200 daily, Topamax 100 twice a day Type 2 olga betes mellitus without complication 537972410 E11.9 09/06/2021: A1C = 6.44/ 22: A1C = 6.001-15-2 020 1: A1C = 7.4 Migraine with aura 80020 06 G43.109 Essential hypertension 72963559 I10 BP:111/76 09/06/2021: CREATININE = 0.71, GFR [...] 8 point Chronic ob structive pulmonary disease 77370105 J44.9 breathing is at baseline and stable today. No change. Continue to encourage smoking cessation. MEDS: Trelegy, Albuterol Spasm of back muscles 20 1297198 M62.830 Discussed the etiology and expected course of back pain due to muscle spasms. Discussed initial conservati ve care with gentle stretching /ROM exercises. Discussed the appropriat e use of NSAIDs/George roids as ordered. Discussed signs and symptoms of worsening or more serious conditions that would warrant reassessme nt in clinic or ED. Migraine [id number] G43.90 9 Screening for malignant neoplasm of colon [id number] Z12.11 COLONOSCOP Y: 04/06/2017 ; 1 Plyp; 5 Yr Rpt DUE: 04/07/22 Dysuria-fr equency syndrome 6690488 R30.0 Ulcer of s kin or mucosa [id number] L98.499 Nicotine dependence 5629 4008 F17.200 Discussed [...] has a significan t psychiatri c history. [id number] FREDIS HERNANDEZ MD [address] [address] 11/02/2021 10:52:38 11/02/2021 11:23:55 [id number] GLENNY MAHAN MD [facility] [address] [facility] [place] [address] 11/04/2021 10:03:50 11/19/2021 16:25:18 [id number] LEANNA RIVERA MD [address] [address] 11/09/2021 11:33:25 11/09/2021 12:02:21 [id number] LEANNA RIVERA MD [address] [address] 04/18/2022 11:04:32 04/18/2022 11:25:22 [id number] LEANNA RIVERA MD [address] [place] [address] 04/26/2022 12:18:16 04/26/2022 15:49:27 Generalized anxiety disorder [id number] F41.1 FLORY:04/26 appropriat e per her recent history.Chelsea xiety is stable on her current regimen.ME DS: Klonopin 1mg BID, Elavil 50mg qD, Zoloft 200 daily, Topamax 100 twice a day Type 2 olga betes mellitus without complication [id number] E11.9 04/26/2022: A1c = 6.87/ 22: A1C = 6.44 22: A1C = 6.001-15-2 020 1: A1C = 7.4 Essential hypertension 59910929 I10 BP:115/80 09/06/2021: CREATININE = 0.71, GFR [...] 8 point Chronic ob structive pulmonary disease 52727076 J44.9 breathing is at baseline and stable today. No change. Continue to encourage smoking cessation. MEDS: Trelegy, Albuterol Spasm of back muscles 20 8969730 M62.830 Discussed the etiology and expected course of back pain due to muscle spasms. Discussed initial conservati ve care with gentle stretching /ROM exercises. Discussed the appropriat e use of NSAIDs/George roids as ordered. Discussed signs and symptoms of worsening or more serious conditions that would warrant reassessme nt in clinic or ED. Migraine [id number] G43.90 9 Screening for malignant neoplasm of colon 764036352 Z12.11 COLONOSCOP Y: 04/06/2017 ; 1 Plyp; [...] history. Mixed anxi ety and depressive disorder 127656568 F41.8 Restless legs 75939657 G 25.81 De-escalat ing requip [id number] MD [facility] [address] [place] [address] 05/25/2022 10:51:52 05/25/2022 11:58:00 Vaginal vault prolapse 910987962 N81.89 [id number] SHANE PELAYO MD SURGERY SCHEDULE [address] [place] [address] 05/31/2022 10:11:19 05/31/2022 10:11:44 [id number] MD [facility] [address] [address] 06/08/2022 13:11:56 06/08/2022 14:15:26 Prolapse of female genital organs 52482328 N81.9 We had a very long extensive [...] be using surgical mesh with this repair. [id number] FELIPE GRIFFITH PA-C [address] [place] [address] 06/17/2022 10:29:54 06/17/2022 12:26:59 Adult health examination 238717810 Z00.00 Patient presented to office today for [...] general health. Prevent ative Screenings Mammogram (40-74 yo):Patien t due.PAP smear (21-65 yo): Patient outisde of [...] their quality of life. Screening mammography 24 919678 Z12.31 Will order. Nicotine dependence 5629 4008 Z87.891 Will order today based on patient's smoking history. Depression screening 171 437145 Z13.31 PHQ-2 done and score was 0. No further management needed. Total time spent: 3 minutes. Type 2 olga betes mellitus without complication 397957552 E11.9 Patient's last HgA1C in August 2021 was 6.4% and fasting glucose was 108. Patient takes trulicity for condition. Continue on current dose. Hypertensive disorder 38 056769 I10 Condition stable with no new or worsening symptoms. Patient's blood pressure in the officewas 110/62.Valerie johns is not on pharmacoth erapy for condition and manages with lifestyle measures. Familial c ombined hyperlipidemia 015909289 E78.49 Last lipid panel in 10/27/2020 showed HDL low at 34 and triglyceri mariel high at 245. Patient is on atorvastat in for condition. Continue on current dose. Recommend a f/u lipid panel during next appointmen t. Generalize d anxiety disorder 91405702 F41.1 YEHUDA-7 todaywas 4.Conditio n stable with no new or worsening symptoms. Patient takes clonazepam for condition. Continue on current dose. Chronic ob structive pulmonary disease 58863871 J44.9 Condition stable with no new or worsening symptoms. Patient takes trelegy and albuterol for condition. Continue on current dose. Tobacco [place] cessation education 754345977 Z71.6 Patient reports she is currently trying [...] Total time: 5 minutes. Environmental allergy 42 3256208 T78.49XD Patient sees Dr. Mahan at [facility]. However, she does her shots here at [facility]. She would like to receive her allergy shot today. Idiopathic osteoarthritis 126001300 M19.91 Patient reports worsening arthritic pain in her neck and back recently. She reports that she would like a toradol shot to ease the pain and that it has worked well in the past. Patient's kidney function is fine today so will administer in office. [id number] DANIEL JACOBSON MD [facility] [address] [place] [address] 07/15/2022 11:17:03 07/15/2022 12:15:48 Prolapse of female genital organs 61643366 N81.9 Doing well postop. She will follow-up with me in 6 weeks [id number] FREDIS HERNANDEZ MD [address] [address] 08/18/2022 10:00:43 08/18/2022 11:34:23 Generalized anxiety disorder 83218050 F41.1 takes sertraline , clonazepam as neededstab lecontinue medication Dyslipidemia 334345124 E 78.5 takes atorvastat inLDL controlled 1contin ue medication Type 2 olga betes mellitus without complication 520685228 E11.9 A1c 6.1on Trulicity 0.75mgcont inue medication Pain in left foot 324171 6263 88246 M79.672 likely tendon injuryno fracture on XRrecommen lidia Delarosa send hydrocodon e for acute pain [id number] CHUNG SHUKLA PA-C [facility] [address] [place] [address] 08/25/2022 10:06:00 08/25/2022 11:20:09 Pain of left ankle joint 2511847152 2270723 M25.572 Reviewed xrays of left foot/ankle w/ patient today. Xrays reveal no acute bony abnormalit y/patholog ic process. Likely lateral ankle sprain as cause of pain today.Plan :Aircast given to patient today. WBAT. Frequent ice/elevat ion. hold therapy. If no better in 3 weeks we will have patient come back for recheck and obtain MRI. Sprain of lateral ligament of ankle joint 252844031 S93.492A Reviewed xrays of left foot/ankle w/ patient today. Xrays reveal no acute bony abnormalit y/patholog ic process. Likely lateral ankle sprain as cause of pain today.Plan :Aircast given to patient today. WBAT. Frequent ice/elevat ion. hold therapy. If no better in 3 weeks we will have patient come back for recheck and obtain MRI. [id number] CHUNG SHUKLA PA-C [facility] [employer] [facility] [address] [place] [address] TIAN ERICKSON, [place] [address] 10/06/2022 12:06:38 10/06/2022 14:07:34 Closed fracture of distal end of right radius 7936788839 5246408 S52.514A I did independen tly interpret and [...] y. Pain of ri ght elbow joint 8082419515 3389175 M25.521 I did independen tly interpret and [...] with cast to call us immediatel y. [id number] DEAN BILLINGS [facility] [address] [place] [address] 10/06/2022 14:23:32 10/06/2022 14:34:57 [id number] LILIANA LUNDBERG MD [facility] [address] [place] [address] 10/20/2022 10:46:54 10/20/2022 11:49:43 Closed fracture of distal end of right radius 2284790093 4739987 S52.531A Right extra-dariana cular distal radius fracture (DOI: 09/18/2022) [id number] LUCIO YU JR, OTR/L, CHT PHYSICAL THERAPY / HAND THERAPY [facility] [address] [place] [address] 10/20/2022 13:24:21 10/21/2022 04:06:23 Closed fracture of distal end of right radius 2363114042 2156640 S52.501D [id number] LEANNA RIVERA MD [address] [address] 10/21/2022 09:54:17 10/25/2022 04:03:18 Mixed anxiety and depressive disorder 191654482 F41.8 It is not ideal that the [...] want to change or adjust it. Hyperglycemia 79482634 R 73.9 Peripheral arterial insufficiency 0836127543 26297 I73.9 Patient is concerned about increased pain, cramping, and coolness in her feet, worse on her left. We are going to check ROSEMARY and Dulex and evaluate as indicated. Could consider referral for NCS if duplex is without flow restrictin g disease. Generalize d anxiety disorder 24214721 F41.1 takes sertraline , clonazepam as neededstab lecontinue medication Dyslipidemia 888935634 E 78.5 Patient has a history of [...] of morbidity and . Type 2 olga betes mellitus 12497798 E11.51 Patient has a known history of diabtes and her A1c has been as high as 7.9 in the past. She has done very well on Trulicity that was started a couple of years ago. She has not been able to tolerate increasing the dose but her A1c has been well controlled on the lower. Essential hypertension 03687026 I10 BP:115/80 09/06/2021: CREATININE = 0.71, GFR [...] cture of distal end of right radius 8999762012 6534235 S52.531A Right extra-dariana cular distal radius fracture (DOI: 09/18/2022) Migraine 51812612 G43.90 9 Patient continues to follow regularly with [facility] for managment and monitoring of her longstandi ng migraine headaches. They are prescribin g her Topimate PO and Vypeti infusion every 3 months and the patient reports that these have been effective for her and she is tolerating them well. Taking TPM, Vyepti q 3 mo Chronic ob structive pulmonary disease 64998411 J44.9 breathing is at baseline and stable today. No change. Continue to encourage smoking cessation. MEDS: Trelegy, Albuterol [id number] BEAN FISCHER PA-C [facility] [address] [address] 11/07/2022 10:21:23 11/07/2022 11:54:24 Closed fracture of distal end of right radius 9589967154 5159617 S52.501D Assessment : Follow-up of right distal radius fracture. Plan: Alignment seems stable on repeat x-rays today. Patient would like to go back into a cast, which I find reasonable , we will remain in this for another 3 weeks. Follow-up in 3 weeks for repeat x-rays on arrival out of cast and recheck. [id number] BEAN FISCHER PA-C [facility] [address] [place] [address] 12/01/2022 09:46:39 12/01/2022 11:32:45 Closed fracture of distal end of right radius 7184477160 5775598 S52.501G Assessment : Follow-up of right distal radius fracture. Plan: Dr. Martinez consulted on the case today. Agrees with a CT scan as next best step. She has an [employer] custom brace for this wrist that she can use in the meantime. Follow-up after the CT scan to discuss results with Dr. Martinez. [id number] EMILI MARTINEZ MD [facility] [address] [place] [address] 12/14/2022 12:32:28 12/14/2022 13:33:23 Closed fracture of distal end of right radius 2176632110 3228544 S52.501G Assessment : right distal radius fracture, [...] a stress ball to work on her wire insulator strength. I suspect her N/T will improve as her swelling goes down. If her N/T is not improved in x1 month, she should return to the clinic. F/U PRN. 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 53372769 M65.4 Right de Quervain's tenosynovi tis (CSI: 02/16/2023 ) Health Concerns Section Related Observation LastModified by Organization Detai ls LastModified Time None Recorded Concern Status LastModified by Organization Details LastModified Time None Recorded Advance Directives Directive None Recorded Payers Insurance Date Sequence Insurance Name Policy Number Policy Cheng Covered Member ID Cheng Member ID Guarantor Name 03/26/2023 2 [place] [email or web address] - FFS/TRADITION TIFF Marley [id number] Cecile Ramirez 03/03/2024 1 HUMANA (MEDICARE REPLACEMENT/A DVANTAGE - PPO) Cecile Ramirez [id number] Cecile Ramirez 03/26/2023 1 HUMANA - GOLD PLUS (MEDICARE REPLACEMENT/A DVANTAGE - HMO) Cecile Ramirez [id number] Cecile Ramirez 03/26/2023 1 AETNA (MEDICARE REPLACEMENT/A DVANTAGE - HMO) [id number] Cecile Ramirez [id number] Cecile Ramirez 03/03/2024 2 [place] [employer] [facility] - FFS/TRADITION AL Cecile Ramirez [id number] Cecile Ramirez 03/26/2023 1 HUMANA - GOLD PLUS (MEDICARE REPLACEMENT/A DVANTAGE - HMO) Cecile Ramirez [id number] Cecile Ramirez 03/26/2023 2 HUMANA (POS) Cecile Ayaka [id number] Cecile Ramirez 03/26/2023 1 AETNA (MEDICARE REPLACEMENT/A DVANTAGE - PPO) [id number] Cecile Ramirez [id number] Cecile Ramirez 01/15/2020 1 HUMANA (PPO) [id number] Vikash Lansing [id number] Cecile Ramirez 03/26/2023 1 [place] Cecile Ramirez [id number] Cecile Ramirez 03/26/2023 1 [place]MEDICARE REPLACEMENT HMO) [id number] Cecile Ramirez [id number] Cecile Ramirez 03/26/2023 1 HUMANA - GOLD PLUS (MEDICARE REPLACEMENT/A DVANTAGE - HMO) Cecile Molina Ramirez [id number] Cecile G Ramirez Notes Date Note Type Note Provider Name [...] now that she has moved back to [place]. She states that she is still in [...] horses a few weeks ago. Initially, at [facility], she was told it was a [...] moved back in with her ex- in [place]. She notes that life is going very well there and she is the happiest she can remember being for a long time. She notes that they have horses and they recently took a trip to [place] and they are getting along very well. However, she is not wanting to move her medical care to [place] at least for the time being. She notes that she needs medicine refills. She has almost run out of her Klonopin, she notes that she has had some more anxiety recently because she has had to extend her Klonopin so it would last to the [facility]. She denies having new problems today. 09/22:Patient [...] burning. She notes that she saw her clinical documentation consultant yesterday. That they told her she had too much acid in her urine and that she should use Desitin. She notes that the Desitin did not help. However, she had a little bit of leftover silvadene. This helped a lot. She would like a refill of the silvadene if she can. She notes that the clinical documentation consultant gave her Macrobid. She has been taking [...] caused her nausea and vomiting and diarrhea. 07/26/21Jennaluis notes that she went to [facility] in [place] where she was referred by Dr. Luevano. [...] get in with a headache specialist in [place]. She notes that they recommended massages and therapy. She is not sure if she is going back to see them. LEANNA RIVERA MD [address] [place] [address], [phone], [facility] 10/24/2022 21:32:43 11/07/2022 text/html HAND DOMINANCE: Right WHAT: Right wrist . WHEN: 11/03/22 HOW: impact injury [...] PT: no INJECTION: no BEAN FISCHER PA-C [address] [place] [address], [phone], [facility] 11/07/2022 15:04:34 12/01/2022 text/html HAND DOMINANCE: RightWHAT: Right wrist . Pain is constant dull ache [...] LCMRI: No Disc BEAN FISCHER PA-C [address] [place], [address], [facility] 12/01/2022 13:20:43 12/14/2022 text/html Patient comes in today for FU Right wrist.Patient states they are worse than last visit.WHEN: [...] been in therapy. EMILI MARTINEZ MD [address] [place], [address], [facility] 12/14/2022 13:48:04 02/16/2023 text/html Patient last see [...] Hand dominance: RightLocation: Right Wrist Pain level: 8 10 Date of injury: 09/18/22Duration: 5 months Recent Surgery: NoProcedure:Date of surgery:Surgeon(If Known): In office procedure? No Previous upper extremity surgery? NoProcedure:Approxim ate date of surgery:Surgeon (if known):Have you or an immediate family member ever seen our hand surgeons before? Yes Currently employed?: Retired Patient arrived in: n/a Senior Financial Reporting Analyst Strength: right: left: Ms. Ramirez is here for recheck of rt wrist. XOA. She says her hand has been going to sleep and tingling alot. She also says on day her wrist got twisted and pulled, since then she has had swelling and pain. LILIANA LUNDBERG MD [facility] [place], [address], [facility] 02/16/2023 13:20:57 OBGyn Episode No OBEpisode recorded.
--- OUTSIDE RECORDS SUMMARY | 2024-09-02 10:07 | XMS_ITS | Encounter Summary ---
Author Organization [employer] ([place], [place], [place], [place]) Address [address] [place] [address] Care Team Providers Care Lead Generation Representative Name Role Phone Jayden Rowan MD Primary Care Provider [phone] Encounter Details Date Type Department Care Team (Late st Contact Info) Description 06/19/2019 Transcribed Document [facility] [address] [place] [address] ProviderJason MD [address], [place] [id number] Social History Tobacco Use Types Packs/Day Years [...] On: 06/19/2019 23:20 EDT by Mark Olmedo, Painter Airbrush Process Patient Disposition : Discharge Personal Belongings [...] on filedocumented in this encounter Care Teams Lead Generation Representative Relationship Specialty Start Date End Date Jayden Rowan MD [address] [place] [phone] PCP - General General Internal Medicine 07/05/22 documented as of this encounter
--- OUTSIDE RECORDS SUMMARY | 2024-09-02 10:07 | XMS_ITS | Encounter Summary ---
Author Organization [employer] ([place], [place], [place], [place]) Address [address] [place] [address] Care Team Providers Care Game Room Attendant Name Role Phone Jayden Rowan MD Primary Care Provider [phone] Encounter Details Date Type Department Care Team (Late st Contact Info) Description 06/10/2020 Transcribed Document [facility] [place] [address] [place] [address] ProviderJason MD [address] [place] [address] Social History Tobacco Use Types Packs/Day Years Used Date Smoking Tobacco: Never Assessed Comments Unknown Sex and Gender Information Value Date Recorded Sex Assigned at Not on file Legal Sex Female 3:15 PM CDT Gender Identity Not on file Sexual Orientation Not on file documented as of this encounter Miscellaneous Notes * Cerner Conversion Note - Jason ProviderMD - 06/10/2020 11:04 PM CDT Pain Assessment Entered On: 06/11/2020 0:37 EDT Performed On: 06/11/2020 0:05 EDT by Kimmy Childs RN-PATIENT CARE BEDSIDE NON-EXEMPT Intervention Information: ketorolac Performed by Angélica Mendez RN on 06/10/2020 23:28:00 EDT ketorolac,30mg IV Push,Right Antecubit [place] Pain Assessment Pain Assessment : Follow-up assessment Pain Scale Used : 0-10 Scale Kimmy Childs RN-PATIENT CARE BEDSIDE NON-EXEMPT - 06/11/2020 0:36 EDT Pain Scale Intensity : 0 Kimmy Childs, MICHOACANO-PATIENT CARE BEDSIDE NON-EXEMPT - 06/11/2020 0:36 EDT Image 4 - Images currently included in the form version of this document have not been included in the text rendition version of the form. Electronically signed by [facility] Conversion Intermediate Teacher Cerner at 06/09/2022 3:29 PM CDT documented in this encounter Plan of Treatment Not on file documented as of this encounter Visit Diagnoses Not on filedocumented in this encounter Care Teams Game Room Attendant Relationship Specialty Start Date End Date Jayden Rowan MD [address] [place] [phone] PCP - General General Internal Medicine 07/05/22 documented as of this encounter
--- OUTSIDE RECORDS SUMMARY | 2024-09-02 10:07 | XMS_ITS | Encounter Summary ---
Author Organization [employer] ([place], [place], [place], [place]) Address [address] [place] [address] Care Team Providers Care Boat Outboard Engine Mechanic Name Role Phone Jayden Rowan MD Primary Care Provider [phone] Encounter Details Date Type Department Care Team (Late st Contact Info) Description 02/06/2020 Transcribed Document [facility] Family Medicine [address] [place] [address] ProviderJason MD [address] [place] [address] Social History Tobacco Use Types [...] Jason Zendejas MD - 02/06/2020 2:02 PM ORACLE BPM DEVELOPER ED Discharge Entered On: 02/06/2020 14:03 EST Performed On: 02/06/2020 14:02 EST by Tori Rolon drier transfer car operator Process Patient Disposition : Discharge Personal [...] - 02/06/2020 14:02 EST Electronically signed by [facility] Conversion Reception Specialist Cerner at 06/09/2022 3:27 PM CDT documented in this encounter Plan of Treatment Not on file documented as of this encounter Visit Diagnoses Not on filedocumented in this encounter Care Teams Boat Outboard Engine Mechanic Relationship Specialty Start Date End Date Jayden Rowan MD [address] [place] [phone] PCP - General General Internal Medicine 07/05/22 documented as of this encounter
--- OUTSIDE RECORDS SUMMARY | 2024-09-02 10:07 | XMS_ITS | Encounter Summary ---
Author Organization [employer] ([place], [place], [place], [place]) Address [address] [place] [address] Care Team Providers Care Recreational Therapy Technician Name Role Phone Jayden Rowan MD Primary Care Provider [phone] Encounter Details Date Type Department Care Team (Late st Contact Info) Description 03/04/2019 Transcribed Document [facility] [place] [facility] [place] [address] ProviderJason MD [address] [place] [address] Social History Tobacco Use Types Packs/Day Years Used Date Smoking Tobacco: Never Assessed Comments Unknown Sex and Gender Information Value Date Recorded Sex Assigned at Not on file Legal Sex Female 3:15 PM CDT Gender Identity Not on file Sexual Orientation Not on file documented as of this encounter Miscellaneous Notes * Cerner Conversion Note - Jason Zendejas MD - 03/04/2019 1:08 AM SEPHORA PRODUCT CONSULTANT ED Discharge Entered On: 03/04/2019 1:09 EST [...] - 03/04/2019 1:08 EST Electronically signed by [facility] Conversion Turkish Rubber Cerner at 06/09/2022 3:29 PM CDT documented in this encounter Plan of Treatment Not on file documented as of this encounter Visit Diagnoses Not on filedocumented in this encounter Care Teams Recreational Therapy Technician Relationship Specialty Start Date End Date Jayden Rowan MD [address] [place] [phone] PCP - General General Internal Medicine 07/05/22 documented as of this encounter
--- OUTSIDE RECORDS SUMMARY | 2024-09-02 10:07 | XMS_ITS | Encounter Summary ---
Author Organization [employer] ([place], [place], [place], [place]) Address [address] [place] [address] Care Team Providers Care Materials Branch Chief Name Role Phone Leanna Rivera MD Primary Care Provider Encounter Details Date Type Department Care Team (Late st Contact Info) Description 10/02/2020 Transcribed Document [facility] Family Medicine [address] [place] [address] ProviderJason MD [address] [place] [address] Social History Tobacco Use Types [...] Zendejas MD - 10/02/2020 12:11 PM CDT [facility] [address] [place] [address] CECILE RAMIREZIL :1955 Visit Time:10/02/2020 Your Visit Summary Your [...] Within 2 to 3 days Where: [address] [place] [address] [address] [place] [id number] [facility] (1) Allergies HYDROmorphone Imitrex Maxalt [...] these instructions at home: Medicines ??? Take uzew-ahn-sflqicn and prescription medicines only as told by your health care provider. ??? Ask your health care provider if the medicine prescribed to you: ? Requires you to avoid driving or using heavy machinery. ? Can cause constipation. You may need to take these actions to prevent or treat constipation: ? Drink enough fluid to keep your urine pale yellow. ? Take rccy-gue-zqwbyub or prescription medicines. ? Eat foods that [...] provider. Document Revised: 05/31/2019 Document Reviewed: 03/21/2019 [employer] Patient Education ?? 2020 [employer]. Emergency Awareness and Preventative Care STROKE is [...] Assistance with quitting is available by contacting 5-176-SWPT-NOW. This is a free resource providing counseling, [...] was given the opportunity to ask questions. Patient/Farm Labor Contractor Name: Patient/Farm Labor Contractor Signature: Relationship to Patient: Clinician/Hospital Farm Labor Contractor Signature: Please Provide a Telephone Number Where You Can Be Reached: Is it Permissible To Leave a Message? Date: documented in this encounter Plan of Treatment Not on file documented as of this encounter Visit Diagnoses Not on filedocumented in this encounter Care Teams Materials Branch Chief Relationship Specialty Start Date End Date Leanna Rivera MD [address] [place] [address] [place] [address] PCP - General General Internal Medicine 07/05/22 documented as of this encounter
--- OUTSIDE RECORDS SUMMARY | 2024-09-02 10:07 | XMS_ITS | Clinical Summary ---
Author Organization [employer] ([place], [place], [place], [place]) Address [address] [place] [address] Care Team Providers Care Research Clerk Name Role Phone Jayden Rowan MD Primary Care Provider [phone] Allergies Active Allergy Reactions Criticality Noted Date [...] Diabetes mellitus 09/23/2020 GERD (gastroesophageal reflux disease) 1 Anxiety 04/12/2019 Depressive disorder 04/12/2019 Hypercholesterolemia 04/12/2019 [...] drink = 0.6 oz pur e alcohol) Food Insecurity Answer Date Recorded Food run [...] Jean Carlos rded Speak language other than Montserratian at home Not on file 03/10/2023 Want [...] 1957 Sigmoidoscopy 1957 Diabetic Eye Exam 1967 Hepatitis C Screening 1975 DTAP/TDAP/TD VACCINES (1 - Tdap) 02/15/1976 Breast Cancer Screening 1997 Respiratory Syncytial Virus (RSV) Adult or (1 - Risk 60-74 years 1-dose series) 2017 Shingles Vaccine (Zoster) (2 of 2) 11/29/20182018 Hemoglobin A1C 01/05/2023 07/05/2022 Tobacco Cessation Counseling and Screening (12+) 07/06/2023 07/05/2022 COVID-19 VACCINE (3 - 2023- season) 2023 10/04/2020, 05/28/2020, 05/28/2020 Falls Risk Screening 02/21/2024 Influenza Vaccine (#1) 2024 10/04/2018, 2017 Pneumococcal 50+ years Completed 01/03/2022, 2018 Procedures Procedure Name Priority Date/Time Associated Diagnosis Comments HEMOGLOBIN A1C Routine 07/05/2022 12:26 PM EDT Preop testing from Last 3 Months or Most Recently Relevant to Health Maintenance Results * Hemoglobin A1c (07/05/2022 12:26 PM EDT) Hemoglobin A1C 6.7 % 07/05/2022 9:44 PM EDT [facility] Comment: Hemoglobin A1C levels are related to mean glucose during the preceding 2-3 months. Less than 7% demonstrates glycemic control in diabetic patients. Hemoglobin AlC % Suggested Diagnosis > or = 6.5 Diabetic 5.7 - 6.4 Prediabetic <5.7 Non-diabetic eAVG Glucose 145.59 mg/dL 07/05/2022 9:44 PM EDT [facility] Blood Venipuncture / Unknown 07/05/2022 12:26 PM EDT 07/05/2022 12:26 PM EDT us Fady Bates MD LAB BLOOD ORDERABLES Final Res ult [facility] [address] [phone] from Last 3 Months or Most Recently Relevant to Health Maintenance Insurance [id number] (Home) [address] [facility] [place] [id number] MEDICAID [facility] [employer] MEDICAID [facility] Advance Directives For more information, please contact: [phone] Documents on File Type Date Recorded Patient Supervisor [place] Expl anation Advance Directives and Livin g Will 07/07/2022 7:11 AM * Full Code (Latest Code Status on File) Date Activated Date Inactivated Comments 07/07/2022 4:06 PM 07/08/2022 4:14 PM Care Teams Research Clerk Relationship Specialty Start Date End Date Jayden Rowan MD [address] [place] [phone] PCP - General General Internal Medicine 07/05/22
--- OUTSIDE RECORDS SUMMARY | 2024-09-02 10:07 | XMS_ITS | Encounter Summary ---
Author Organization [employer] ([place], [place], [place], [place]) Address [address] [place], [place] [address] Care Team Providers Care Cancer Researcher Name Role Phone Leanna Rivera MD Primary Care Provider [phone] Encounter Details Date Type Department Care Team (Late st Contact Info) Description 09/05/[address] [facility] Radiology [address] [place] [id number] Gali Garrett MD One [facility] Dept [place] [address] Social History Tobacco Use Types Packs/Day Years [...] EDT Height Source Stated Height Entry Format [place] Height/Length, ZIMBABWEAN (ft) 5 ft Height/Length [place] 4 Inch CLINICALHEIGHT 162.56 cm [place] Body Weight 54.3 kg Weight Source, ED Critical estimated dosing weight Weight Entry Format [place] Weight Burundian lb 162 lb CLINICALWEIGHT 73.64 kg Body [...] on filedocumented in this encounter Care Teams Cancer Researcher Relationship Specialty Start Date End Date Leanna Rivera MD [address] [place] [phone] PCP - General General Internal Medicine 07/05/22 documented as of this encounter
--- OUTSIDE RECORDS SUMMARY | 2024-09-02 10:07 | XMS_ITS | Encounter Summary ---
Author Organization [employer] ([place], [place], [place], [place]) Address [address] [place] [address] Care Team Providers Care Recreation Therapy Teacher Name Role Phone Jayden Rowan MD Primary Care Provider [phone] Encounter Details Date Type Department Care Team (Late st Contact Info) Description 02/06/2020 Transcribed Document [facility] [place] [address] [place] [address] ProviderJason MD [address] [place] [address] Social History Tobacco Use Types [...] - Jason ProviderMD - 02/06/2020 1:15 PM SUPERVISOR ERECTION SHOP [place] Suicide Severity Rating Scale (C-SSRS) Entered On: 02/06/2020 13:24 EST Performed On: 02/06/2020 13:20 EST by RACHAEL QUINTANA RN [place] Suicide Severity Rating Scale (C-SSRS) CSSRS Past Month Wish to be : No CSSRS Past Month Suicidal Thoughts : No CSSRS Lifetime Suicide Behavior : No Suicide Severity Rating Score : 0 Suicide Severity Rating : No Additional Care Required at this time RACHAEL QUINTANA RN - 02/06/2020 13:20 EST Electronically signed by Tadeo [facility] Conversion Plate Glass Grinder Cerner at 06/09/2022 3:31 PM CDT documented in this encounter Plan of Treatment Not on file documented as of this encounter Visit Diagnoses Not on filedocumented in this encounter Care Teams Recreation Therapy Teacher Relationship Specialty Start Date End Date Jayden Rowan MD [address] [place] [phone] PCP - General General Internal Medicine 07/05/22 documented as of this encounter
--- OUTSIDE RECORDS SUMMARY | 2024-09-02 10:07 | XMS_ITS | Encounter Summary ---
Author Organization [employer] ([place], [place], [place], [place]) Address [address] [place] [address] Care Team Providers Care Gravity Prospecting Observer Helper Name Role Phone Jayden Rowan MD Primary Care Provider [phone] Encounter Details Date Type Department Care Team (Late st Contact Info) Description 06/19/2019 Transcribed Document [facility] [place] [address] [place] [address] ProviderJason MD [address] [place] [address] Social History Tobacco Use Types Packs/Day Years Used Date Smoking Tobacco: Never Assessed Comments Unknown Sex and Gender Information Value Date Recorded Sex Assigned at Not on file Legal Sex Female 3:15 PM CDT Gender Identity Not on file Sexual Orientation Not on file documented as of this encounter Miscellaneous Notes * Cerner Conversion Note - Jason ProviderMD - 06/19/2019 8:59 PM CDT ED Triage Entered On: 06/19/2019 21:08 EDT Performed On: 06/19/2019 21:03 EDT by Dottie Baltazar DIRECTOR OF SALES MARKETING Triage Across the Room Chief Complaint : c/o headache and vomiting x 4 days, hx of same Triage Date/Time : 06/19/2019 21:03 EDT Dottie Baltazar RN - 06/19/2019 21:03 EDT DCP GENERIC CODE Tracking Acuity : 3 - Urgent Tracking Group : [facility] ED Dottie Mistry RN - [...] Onset Date: Unspecified ; Created By: CONTRIBUTOR_SYSTEM HIST_CERARIE; Reaction Status: Active ; Category: Drug ; Substance: morphine ; Type: Allergy ; Updated By: SANTA_MARIA DEL ROSARIO HIST_CERARIE; Reviewed Date: 06/19/2019 21:06 EDT Zofran Estimated Onset Date: Unspecified ; Created By: Tenisha Curry Rn; Reaction Status: Active ; Category: Drug ; Substance: Zofran ; Type: Allergy ; Updated By: Tenisha Curry, Boy; Reviewed Date: 06/19/2019 21:06 EDT Diagnosis Control ED (As Of: 06/19/2019 21:08:56 EDT) Problems(Active) Anxiety (SNOMED CT :62882846 ) Name of Problem: Anxiety ; Recorder: BOB PEARCE RN; Confirmation: Confirmed ; Classification: Medical ; Code: 46499569 ; Contributor System: PowerChart ; Last Updated: 08/01/2013 19:25 EDT ; Life Cycle Date: 05/11/2013 ; Life Cycle Status: Active ; Vocabulary: SNOMED CT Appendectomy (SNOMED CT :371246446 ) Name of Problem: Appendectomy ; Recorder: BOB PEARCE RN; Confirmation: Confirmed ; Classification: Medical ; Code: 897013134 ; Contributor System: PowerChart ; Last Updated: 08/06/2013 10:55 EDT ; Life Cycle Date: 05/11/2013 ; Life Cycle Status: Active ; Vocabulary: SNOMED CT Bladder (SNOMED CT :610090757 ) Name of Problem: Bladder ; Recorder: BOB PEARCE RN; Confirmation: Confirmed ; Classification: Medical ; Code: 514115995 ; Contributor System: PowerChart ; Last Updated: 08/08/2013 13:51 EDT ; Life Cycle Date: 05/11/2013 ; Life Cycle Status: Active ; Vocabulary: SNOMED CT ; Comments: 05/11/2013 16:28 - BOB PEARCE RN bladder sling Cholecystectomy (SNOMED CT :42523526 ) Name of Problem: Cholecystectomy ; Recorder: BOB PEARCE RN; Confirmation: Confirmed ; Classification: Medical ; Code: 82938518 ; Contributor System: Nano MagneticsChart ; Last Updated: 08/06/2013 10:53 EDT ; Life Cycle Date: 05/11/2013 ; Life Cycle Status: Active ; Vocabulary: SNOMED CT COPD (chronic obstructive pulmonary disease) (SNOMED CT :29550540 ) Name of Problem: COPD (chronic obstructive pulmonary disease) ; Recorder: BONNIE FUCHS RN; Confirmation: Confirmed ; Classification: Medical ; Code: 01395509 ; Contributor System: PowerChart ; Last Updated: 06/30/2014 10:41 EDT ; Life Cycle Date: 06/30/2014 ; Life Cycle Status: Active ; Vocabulary: SNOMED CT Depression (SNOMED CT :740729065 ) Name of Problem: Depression ; Recorder: BOB PEARCE RN; Confirmation: Confirmed ; Classification: Medical ; Code: 776254605 ; Contributor System: PowerChart ; Last Updated: 08/01/2013 19:25 EDT ; Life Cycle Date: 05/11/2013 ; Life Cycle Status: Active ; Vocabulary: SNOMED CT Diabetes mellitus (SNOMED CT :585231378 ) Name of Problem: Diabetes mellitus ; Recorder: Arabella Pienda RN; Confirmation: Confirmed ; Classification: Patient Stated ; Code: 466918798 ; Contributor System: Nano MagneticsChart ; Last Updated: 07/09/2017 2:14 EDT ; Life Cycle Date: 07/09/2017 ; Life Cycle Status: Active ; Vocabulary: SNOMED CT GERD (gastroesophageal reflux disease) (SNOMED CT :533077237 ) Name of Problem: GERD (gastroesophageal reflux disease) ; Recorder: BONNIE FUCHS RN; Confirmation: Confirmed ; Classification: Medical ; Code: 157483750 ; Contributor System: PowerChart ; Last Updated: 06/30/2014 10:41 EDT ; Life Cycle Date: 06/30/2014 ; Life Cycle Status: Active ; Vocabulary: SNOMED CT High cholesterol (SNOMED CT :[id number] ) Name of Problem: High cholesterol ; Recorder: BOB PEARCE RN; Confirmation: Confirmed ; Classification: Medical ; Code: [id number] ; Contributor System: Nano MagneticsChart ; Last Updated: 08/01/2013 19:25 EDT ; Life Cycle Date: 05/11/2013 ; Life Cycle Status: Active ; Vocabulary: SNOMED CT Hysterectomy (SNOMED CT :763866599 ) Name of Problem: Hysterectomy ; Recorder: BOB PEARCE RN; Confirmation: Confirmed ; Classification: Medical ; Code: 170208429 ; Contributor System: PowerChart ; Last Updated: 08/06/2013 10:54 EDT ; Life Cycle Date: 05/11/2013 ; Life Cycle Status: Active ; Vocabulary: SNOMED CT Migraine (SNOMED CT :72151996 ) Name of Problem: Migraine ; Recorder: BOB PEARCE RN; Confirmation: Confirmed ; Classification: Medical ; Code: 18540424 ; Contributor System: PowerChart ; Last Updated: 08/01/2013 19:25 EDT ; Life Cycle Date: 05/11/2013 ; Life Cycle Status: Active ; Vocabulary: SNOMED CT Diagnoses(Active) Headache Date: 06/19/2019 ; Diagnosis Type: Reason For Visit ; Confirmation: Complaint of ; Clinical Dx: Headache ; Classification: Medical ; Clinical Service: Emergency medicine ; Code: PNED ; Probability: 0 ; Diagnosis Code: [id number] ED Height and Weight Height Source : Stated Height Entry Format : [place] Height, Feet : 5 ft(Converted to: 152 cm, 60 Inch) Height, Inches : 4 Inch(Converted to: 0 ft 4 Inch, 10.16 cm) Clinical Height : 162.56 cm Weight Source, ED : Critical estimated dosing weight Weight Entry Format : [place] Weight, Pounds : 172 lb Clinical Dosing Weight : 78.18 kg Body Surface Area (BSA) : 1.84 m2 Body Mass Index : 29.6 kg/m2 ([place]) [place] Body Weight (IBW) : 54.3 kg Dottie [...] on filedocumented in this encounter Care Teams Gravity Prospecting Observer Helper Relationship Specialty Start Date End Date Jayden Rowan MD [address] [place] [phone] PCP - General General Internal Medicine 07/05/22 documented as of this encounter
--- OUTSIDE RECORDS SUMMARY | 2024-09-02 10:07 | XMS_ITS | Encounter Summary ---
Author Organization [employer] ([place], [place], [place], [place]) Address [address] [place] [address] Care Team Providers Care Electrician Marine Name Role Phone Jayden Rowan MD Primary Care Provider [phone] Encounter Details Date Type Department Care Team (Late st Contact Info) Description 10/19/2021 Transcribed Document [facility] [place] Family Medicine [address] [place] [address] ProviderJason MD [address] [place] [address] Social History Tobacco Use Types [...] Jean Carlos rded Speak language other than Lithuanian at home Not on file 03/10/2023 Want [...] Performed On: 10/19/2021 15:40 EDT by Montserrat Dale, RN [place] Violence Assessment [place] Violence Checklist of Symptoms : None [place] Violence Symptoms Subtotal : 0 [place] Violence Symptoms Indicator : Low risk (0) Montserrat Dale RN - 10/19/2021 15:40 EDT Electronically signed by Tadeo [facility] Conversion Manager Competitive Intelligence Cerner at 06/09/2022 3:27 PM CDT documented in this encounter Plan of Treatment Not on file documented as of this encounter Visit Diagnoses Not on filedocumented in this encounter Care Teams Electrician Marine Relationship Specialty Start Date End Date Jayden Rowan MD [address] [place] [phone] PCP - General General Internal Medicine 07/05/22 documented as of this encounter
--- OUTSIDE RECORDS SUMMARY | 2024-09-02 10:07 | XMS_ITS | Encounter Summary ---
Author Organization [employer] ([place], [place], [place], [place]) Address [address] [place] [address] Care Team Providers Care Word Processing Operator Name Role Phone Jayden Rowan MD Primary Care Provider Encounter Details Date Type Department Care Team (Late st Contact Info) Description 02/06/2020 Transcribed Document [facility] [place] [address] [place] [address] ProviderJason MD [address] [place] [address] Social History Tobacco Use Types [...] - Jason ProviderMD - 02/06/2020 1:15 PM CELLULAR PLASTICS CUTTER [place] Violence Assessment Entered On: 02/06/2020 13:24 EST Performed On: 02/06/2020 13:20 EST by RACHAEL QUINTANA, RN Bro[place] Violence Assessment [place] Violence Checklist of Symptoms : None [place] Violence Symptoms Subtotal : 0 [place] Violence Symptoms Indicator : Low risk (0) [place] Interventions : [place] precautions for safety used RACHAEL QUINTANA RN - 02/06/2020 13:20 EST Electronically signed by Tadeo [facility] Conversion Financial Reserve Clerk Cerner at 06/09/2022 3:30 PM CDT documented in this encounter Plan of Treatment Not on file documented as of this encounter Visit Diagnoses Not on filedocumented in this encounter Care Teams Word Processing Operator Relationship Specialty Start Date End Date Jayden Rowan MD [address] [place] [phone] PCP - General General Internal Medicine 07/05/22 documented as of this encounter
--- OUTSIDE RECORDS SUMMARY | 2024-09-02 10:07 | XMS_ITS | Encounter Summary ---
Author Organization [employer] ([place], [place], [place], [place]) Address [address] [place] [address] Care Team Providers Care Armored Cable Machine Operator Name Role Phone Jayden Rowan MD Primary Care Provider [phone] Encounter Details Date Type Department Care Team (Late st Contact Info) Description 06/20/2018 Transcribed Document [facility] [place] [address] [place] [address] ProviderJason MD [address] [place] [address] Social History Tobacco Use Types Packs/Day Years Used Date Smoking Tobacco: Never Assessed Comments Unknown Sex and Gender Information Value Date Recorded Sex Assigned at Not on file Legal Sex Female 3:15 PM CDT Gender Identity Not on file Sexual Orientation Not on file documented as of this encounter Miscellaneous Notes * Cerner Conversion Note - Jason ProviderMD - 06/20/2018 5:28 AM CDT ED Triage Entered On: 06/20/2018 5:32 EDT Performed On: 06/20/2018 5:28 EDT by Chung Wasserman, Director Emergency Services ED Triage Across the Room Triage Date/Time : 06/19/2018 18:21 EDT Chief Complaint : Computer downtime - Late entry - 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 C/O shoulder and wrist pain Chung Wasserman, Director Emergency Services - 06/20/2018 5:28 EDT DCP GENERIC CODE Tracking Acuity : 4 - Non - Urgent Tracking Group : [facility] ED CrenshawChung Wilder, Director Emergency Services - 06/20/2018 5:28 [...] 06/20/2018 05:32:56 EDT) Problems(Active) Anxiety (SNOMED CT :30416760 ) Name of Problem: Anxiety ; Recorder: BOB PEARCE RN; Confirmation: Confirmed ; Classification: Medical ; Code: 73229190 ; Contributor System: PowerChart ; Last Updated: 08/01/2013 19:25 EDT ; Life Cycle Date: 05/11/2013 ; Life Cycle Status: Active ; Vocabulary: SNOMED CT Appendectomy (SNOMED CT :364641533 ) Name of Problem: Appendectomy ; Recorder: BOB PEARCE RN; Confirmation: Confirmed ; Classification: Medical ; Code: 705968868 ; Contributor System: PowerChart ; Last Updated: 08/06/2013 10:55 EDT ; Life Cycle Date: 05/11/2013 ; Life Cycle Status: Active ; Vocabulary: SNOMED CT Bladder (SNOMED CT :972889592 ) Name of Problem: Bladder ; Recorder: BOB PEARCE RN; Confirmation: Confirmed ; Classification: Medical ; Code: 940357598 ; Contributor System: PowerChart ; Last Updated: 08/08/2013 13:51 EDT ; Life Cycle Date: 05/11/2013 ; Life Cycle Status: Active ; Vocabulary: SNOMED CT ; Comments: 05/11/2013 16:28 - BOB PEARCE RN bladder sling Cholecystectomy (SNOMED CT :80043765 ) Name of Problem: Cholecystectomy ; Recorder: BOB PEARCE RN; Confirmation: Confirmed ; Classification: Medical ; Code: 85379254 ; Contributor System: PowerChart ; Last Updated: 08/06/2013 10:53 EDT ; Life Cycle Date: 05/11/2013 ; Life Cycle Status: Active ; Vocabulary: SNOMED CT COPD (chronic obstructive pulmonary disease) (SNOMED CT :78069235 ) Name of Problem: COPD (chronic obstructive pulmonary disease) ; Recorder: BONNIE FUCHS RN; Confirmation: Confirmed ; Classification: Medical ; Code: 61001284 ; Contributor System: Bio[employer] DiagnosticsChart ; Last Updated: 06/30/2014 10:41 EDT ; Life Cycle Date: 06/30/2014 ; Life Cycle Status: Active ; Vocabulary: SNOMED CT Depression (SNOMED CT :604247012 ) Name of Problem: Depression ; Recorder: BOB PEARCE RN; Confirmation: Confirmed ; Classification: Medical ; Code: 155011762 ; Contributor System: PowerChart ; Last Updated: 08/01/2013 19:25 EDT ; Life Cycle Date: 05/11/2013 ; Life Cycle Status: Active ; Vocabulary: SNOMED CT Diabetes mellitus (SNOMED CT :692103985 ) Name of Problem: Diabetes mellitus ; Recorder: Arabella Pineda RN; Confirmation: Confirmed ; Classification: Patient Stated ; Code: 037426973 ; Contributor System: PowerChart ; Last Updated: 07/09/2017 2:14 EDT ; Life Cycle Date: 07/09/2017 ; Life Cycle Status: Active ; Vocabulary: SNOMED CT GERD (gastroesophageal reflux disease) (SNOMED CT :239516642 ) Name of Problem: GERD (gastroesophageal reflux disease) ; Recorder: BONNIE FUCHS RN; Confirmation: Confirmed ; Classification: Medical ; Code: 410526045 ; Contributor System: PowerChart ; Last Updated: 06/30/2014 10:41 EDT ; Life Cycle Date: 06/30/2014 ; Life Cycle Status: Active ; Vocabulary: SNOMED CT High cholesterol (SNOMED CT :[id number] ) Name of Problem: High cholesterol ; Recorder: BOB PEARCE RN; Confirmation: Confirmed ; Classification: Medical ; Code: [id number] ; Contributor System: [employer] ; Last Updated: 08/01/2013 19:25 EDT ; Life Cycle Date: 05/11/2013 ; Life Cycle Status: Active ; Vocabulary: SNOMED CT Hysterectomy (SNOMED CT :389764479 ) Name of Problem: Hysterectomy ; Recorder: BOB PEARCE RN; Confirmation: Confirmed ; Classification: Medical ; Code: 304698818 ; Contributor System: [employer] ; Last Updated: 08/06/2013 10:54 EDT ; Life Cycle Date: 05/11/2013 ; Life Cycle Status: Active ; Vocabulary: SNOMED CT Migraine (SNOMED CT :27818787 ) Name of Problem: Migraine ; Recorder: BOB PEARCE RN; Confirmation: Confirmed ; Classification: Medical ; Code: 97945633 ; Contributor System: PowerChart ; Last Updated: [...] PNED ; Probability: 0 ; Diagnosis Code: [id number] ED Height and Weight Height Source : Estimated Height Entry Format : [place] Height, Feet : 5 ft(Converted to: 152 cm, 60 Inch) Height, Inches : 6 Inch(Converted to: 0 ft 6 Inch, 15.24 cm) Clinical Height : 167.64 cm Weight Source, ED : Stated [place] Body Weight (IBW) : 58.88 kg Chung Wasserman, Director Emergency Services - 06/20/2018 5:28 EDT Estimated Weight Type of Weight Measurement Est : [place] Weight, est lb : 150 lb(Converted to: 68 kg) Weight, est oz : 0 oz Estimated Clinical Dosing Weight : 68.18 kg Chung Wasserman, Director Emergency Services - 06/20/2018 5:28 EDT Electronically signed by Tadeo, [facility] Conversion Technology Development Intern Cerner at 06/09/2022 3:27 PM CDT documented in this encounter Plan of Treatment Not on file documented as of this encounter Visit Diagnoses Not on filedocumented in this encounter Care Teams Armored Cable Machine Operator Relationship Specialty Start Date End Date Jayden Rowan MD [address] [place] [phone] PCP - General General Internal Medicine 07/05/22 documented as of this encounter
--- OUTSIDE RECORDS SUMMARY | 2024-09-02 10:07 | XMS_ITS | Encounter Summary ---
Author Organization [employer] ([place], [place], [place], [place]) Address [address] [place] [address] Care Team Providers Care Stem Frazer Name Role Phone Leanna Rivera MD Primary Care Provider [phone] Encounter Details Date Type Department Care Team (Late st Contact Info) Description 10/19/2021 Transcribed Document [facility] [place] Family Medicine [address] [place] [address] ProviderJason MD [address] [place] [address] Social History Tobacco Use Types [...] Jean Carlos rded Speak language other than Estonian at home Not on file 03/10/2023 Want [...] Cerner Conversion Note - Historical Provider, - 10/19/2021 3:45 PM CDT Patient: CECILE [...] EDT Height Source Stated Height Entry Format [place] Height/Length, NAURUAN (ft) 5 ft Height/Length NAURU[place] 3 Inch CLINICALHEIGHT 160.02 cm [place] Body Weight 52.02 kg Weight Source, ED Critical estimated dosing weight Weight Entry Format [place] Weight Estonian lb 136 lb CLINICALWEIGHT 61.82 kg Body [...] doctor. Return if worse.. Electronically signed by Jolie Piedra Conversion Supervisor Metal Furniture Fabrication Cerner at 06/09/2022 3:26 PM CDT documented in this encounter Plan of Treatment Not on file documented as of this encounter Visit Diagnoses Not on filedocumented in this encounter Care Teams Stem Frazer Relationship Specialty Start Date End Date Leanna Rivera MD [address] [place] [phone] PCP - General General Internal Medicine 07/05/22 documented as of this encounter
--- OUTSIDE RECORDS SUMMARY | 2024-09-02 10:07 | XMS_ITS | Referral Summary ---
Author Organization [employer] ([place], [place], [place], [place]) Address [address] [place] [address] Care Team Providers Care Manager Core Name Role Phone Jayden Rowan MD Primary Care Provider [phone] Allergies Active Allergy Reactions Criticality Noted Date [...] Jean Carlos rded Speak language other than Zimbabwean at home Not on file 03/10/2023 Want [...] A1C 6.7 % 07/05/2022 9:44 PM EDT [facility] Comment: Hemoglobin A1C levels are related to mean glucose during the preceding 2-3 months. Less than 7% demonstrates glycemic control in diabetic patients. Hemoglobin AlC % Suggested Diagnosis > or = 6.5 Diabetic 5.7 - 6.4 Prediabetic <5.7 Non-diabetic eAVG Glucose 145.59 mg/dL 07/05/2022 9:44 PM EDT [facility] Blood Venipuncture / Unknown 07/05/2022 12:26 PM EDT 07/05/2022 12:26 PM EDT us Fady Bates MD LAB BLOOD ORDERABLES Final Res ult [facility] [address] [phone] from Last 3 Months or Most Recently Relevant to Health Maintenance Insurance [id number] (Home) [facility] [id number] MEDICAID [facility] [employer] COMMERCIAL MEDICAID [facility] Advance Directives For more information, please contact: [phone] Documents on File Type Date Recorded Patient Radiology Practitioner Assistant Expl anation Advance Directives and Livin g Will 07/07/2022 7:11 AM * Full Code (Latest Code Status on File) Date Activated Date Inactivated Comments 07/07/2022 4:06 PM 07/08/2022 4:14 PM Care Teams Manager Core Relationship Specialty Start Date End Date Jayden Rowan MD [address] [place] [phone] PCP - General General Internal Medicine 07/05/22
--- OUTSIDE RECORDS SUMMARY | 2024-09-02 10:07 | XMS_ITS | Encounter Summary ---
Author Organization [employer] ([place], [place], [place], [place]) Address [address] [place] [address] Care Team Providers Care Forensic Medical Examiner Name Role Phone Leanna Rivera MD Primary Care Provider [phone] Encounter Details Date Type Department Care Team (Late st Contact Info) Description 04/30/2019 Transcribed Document [facility] [place] [address] [place] [address] ProviderJason MD [address] [place] [address] Social History Tobacco Use Types [...] Zendejas MD - 04/30/2019 2:40 PM CDT Bashir Pina [address] [place] [address] CECILE RAMIREZIL :1955 Visit Time:04/30/2019 Your Visit Summary Your Care Team Primary Provider: TONEY JORGENSEN Secondary Provider: Your Diagnosis SAUCEDO - [...] When Within 2 to 3 days Where: [address] [place] [address] [address] [id number] [facility] (1) Allergies HYDROmorphone Imitrex Maxalt [...] these instructions at home: Medicines ??? Take fiuv-pss-zozfdbh and prescription medicines only as told by your health care provider. ??? Do not drive or use heavy machinery while taking prescription pain medicine. ??? To prevent or treat constipation while you are taking prescription pain medicine, your health care provider may recommend that you: ? Drink enough fluid to keep your urine clear or pale yellow. ? Take ooml-lia-shwbiwl or prescription medicines. ? Eat foods that [...] 02/06/2006 Document Revised: 08/26/2016 Document Reviewed: 07/25/2016 [employer] Patient Education ?? 2019 [employer] Emergency Awareness and Preventative Care STROKE [...] Assistance with quitting is available by contacting -NOW. This is a free resource providing counseling, support, and referral. Or you may contact your personal physician. National Suicide Prevention Lifeline: The National Suicide Prevention [facility] is a national network of local crisis [...] was given the opportunity to ask questions. Patient/Trackwalker Name: Patient/Trackwalker Signature: Relationship to Patient: Clinician/Hospital Trackwalker Signature: Please Provide a Telephone Number Where You Can Be Reached: Is it Permissible To Leave a Message? Date: Electronically signed by Interface, [facility] Conversion Machine I Coremaker Cerner at 06/09/2022 3:28 PM CDT documented in this encounter Plan of Treatment Not on file documented as of this encounter Visit Diagnoses Not on filedocumented in this encounter Care Teams Forensic Medical Examiner Relationship Specialty Start Date End Date Leanna Rivera MD [address] [place] [phone] PCP - General General Internal Medicine 07/05/22 documented as of this encounter
--- OUTSIDE RECORDS SUMMARY | 2024-09-02 10:07 | XMS_ITS | Encounter Summary ---
Author Organization [employer] ([place], [place], [place], [place]) Address [address] [place] [address] Care Team Providers Care Hand Fur Cleaner Name Role Phone Jayden Rowan MD Primary Care Provider [phone] Encounter Details Date Type Department Care Team (Late st Contact Info) Description 06/26/2020 Transcribed Document [facility] [place] [address] [place] [address] ProviderJason MD [address] [place] [address] Social History Tobacco Use Types Packs/Day Years Used Date Smoking Tobacco: Never Assessed Comments Unknown Sex and Gender Information Value Date Recorded Sex Assigned at Not on file Legal Sex Female 3:15 PM CDT Gender Identity Not on file Sexual Orientation Not on file documented as of this encounter Miscellaneous Notes * Cerner Conversion Note - Jason ProviderMD - 06/26/2020 3:26 PM CDT [place] Suicide Severity Rating Scale (C-SSRS) Entered On: 06/26/2020 16:32 EDT Performed On: 06/26/2020 16:31 EDT by Tori Rolon RN [place] Suicide Severity Rating Scale (C-SSRS) CSSRS Past [...] filedocumented in this encounter Care Teams Hand Fur Cleaner Relationship Specialty Start Date End Date Jayden Rowan MD [address] [place] [phone] PCP - General General Internal Medicine 07/05/22 documented as of this encounter
--- OUTSIDE RECORDS SUMMARY | 2024-09-02 10:07 | XMS_ITS | Encounter Summary ---
Author Organization [employer] ([place], [place], [place], [place]) Address [address] [place] [address] Care Team Providers Care Window Tinter Name Role Phone Jayden Rowan MD Primary Care Provider [phone] Encounter Details Date Type Department Care Team (Late st Contact Info) Description 04/08/2018 Transcribed Document [facility] [place] [address] [place] [address] ProviderJason MD [address] [place], [place] [phone] Social History Tobacco Use Types Packs/Day Years Used Date Smoking Tobacco: Never Assessed Comments Unknown Sex and Gender Information Value Date Recorded Sex Assigned at Not on file Legal Sex Female 3:15 PM CDT Gender Identity Not on file Sexual Orientation Not on file documented as of this encounter Miscellaneous Notes * Cerner Conversion Note - Jason Zendejas MD - 04/08/2018 3:24 PM MILL HELPER Patient: CECILE RAMIREZ Age: 63 years [...] route. There was no reported trauma. Our Vocational Technical Education Teacher has spoken with her czhcup-ph-jqd. The patient has reportedly been stating that [...] Fall Risk Assessment: ED Clinical Reconciliation: ED associate dentist: Normal Saline Flush: 10 mL, IV Push, [...] % 29.4 % Lymph # 2.57 x10(3)/uL [place] % 6.7 % [place] # 0.59 K/uL Eos % 3.3 % Eos # 0.29 x10(3)/uL Baso % 0.6 % Baso # 0.05 x10(3)/uL Slide Review No IG# 0.04 x10(3)/uL IG% 0.50 % PT 10.0 Second(s) INR 0.9 Urine Type U CleanCatch Urine Color Yellow Urine Appearance Clear Urine Specific [place] 1.007 Urine pH Dipstick 6.5 Urine Leukocyte [...] Radiology results: Radiology Results (Last 48 hours) [id number] -- 04/08/2018 15:14 CT Head WO (04/08/2018 [...] Stable. Counseled: Patient, Family. Electronically signed by [facility] Conversion Credit Report Checker Cerner at 06/09/2022 3:28 PM CDT documented in this encounter Plan of Treatment Not on file documented as of this encounter Visit Diagnoses Not on filedocumented in this encounter Care Teams Window Tinter Relationship Specialty Start Date End Date Jayden Rowan MD [address] [place] [phone] PCP - General General Internal Medicine 07/05/22 documented as of this encounter
--- OUTSIDE RECORDS SUMMARY | 2024-09-02 10:07 | XMS_ITS | Encounter Summary ---
Author Organization [employer] ([place], [place], [place], [place]) Address [address] [place] [address] Care Team Providers Care Contract Implementation Analyst Name Role Phone Jayden Rowan MD Primary Care Provider [phone] Encounter Details Date Type Department Care Team (Late st Contact Info) Description 06/26/2020 Transcribed Document [facility] [place] [facility] [place] [address] ProviderJason MD [address] [place], [place] [phone] Social History Tobacco Use Types Packs/Day Years Used Date Smoking Tobacco: Never Assessed Comments Unknown Sex and Gender Information Value Date Recorded Sex Assigned at Not on file Legal Sex Female 3:15 PM CDT Gender Identity Not on file Sexual Orientation Not on file documented as of this encounter Miscellaneous Notes * Cerner Conversion Note - Jason ProviderMD - 06/26/2020 5:12 PM CDT ED Discharge Entered On: 06/26/2020 17:15 EDT Performed On: 06/26/2020 17:12 EDT by Tori Rolon RN Discharge Process Patient [...] - 06/26/2020 17:12 EDT Electronically signed by [facility] Conversion Fountain Waitress/Waiter Cerner at 06/09/2022 3:27 PM CDT documented in this encounter Plan of Treatment Not on file documented as of this encounter Visit Diagnoses Not on filedocumented in this encounter Care Teams Contract Implementation Analyst Relationship Specialty Start Date End Date Jayden Rowan MD [address] [place] [phone] PCP - General General Internal Medicine 07/05/22 documented as of this encounter
--- OUTSIDE RECORDS SUMMARY | 2024-09-02 10:07 | XMS_ITS | Patient Health Record ---
Author Organization [facility] Address [address] [place] [address] Care Team Providers Care Ice Carver Name Role Phone Livier Crane Primary Care Provider LIVIER Crane APRN Unavailable Unavailable Manpreet Lemus Unavailable [phone] Migration, Provider Unavailable Unavailable Allergies Allergen (clinical drug ingredient) Drug/Non Drug Allergy documented on EMR Reaction Allergy Type Onset Date Status PERCODAN (uncoded) hallunications Allergy Active ZOFRAN (uncoded) stomach upset Allergy Active hydromorphone Dilaudid vomiting Drug Allergy Act florecita morphine Morphine vomiting Drug Allergy Active Results Component Value Reference Range Notes LIPID PANEL, STANDARD (7600) Reviewed date:09/22/2023 01:50:40 PM Interpretation: Performing Lab:CB, [facility] T[address] [facility] Rob Hu Notes/Report: FASTING: YES FASTING:YES NON-FASTING; [...] LDL-C. Warren BEYER et al. ALLAN. 2013;310(19): 0988-1702 (http://education.Clear Image Technology.Movebubble/faq/TBV141) CHOL/HDLC RATIO 2.9 <5.0 (calc) NON HDL CHOLESTEROL 85 <130 mg/dL (calc) For patients with diabetes plus 1 major ASCVD risk factor, treating to a non-HDL-C goal of <100 mg/dL (LDL-C of <70 mg/dL) is considered a therapeutic option. COMPREHENSIVE METABOLIC PANE (29639) Reviewed date:09/22/2023 01:50:40 PM Interpretation: Performing Lab:CB, [facility] [address], TzeeBudeHK[address] Rob Hu Notes/Report: NON-FASTING; NON-FASTING; NON-FASTING; NON-FASTING; [...] Reviewed date:09/22/2023 01:50:40 PM Interpretation: Performing Lab:CB, [facility] [address], GLOBALGROUP INVESTMENT HOLDINGSFoboZT[address] Rob Hu Notes/Report: NON-FASTING; NON-FASTING; NON-FASTING; NON-FASTING; NON-FAST FASTING:YES FASTING: YES WHITE BLOOD CELL COUNT 7.9 3.8-10.8 Thousand/ uL RED BLOOD CELL COUNT 4.95 3.80-5.10 Million/uL HEMOGLOBIN 12.3 11.7-15.5 g/dL HEMATOCRIT 39.5 35.0-45.0 % MCV 79.8 80.0-100.0 fL MCH 24.8 27.0-33.0 pg MCHC 31.1 32.0-36.0 g/dL RDW 14.4 11.0-15.0 % PLATELET COUNT 236 140-400 Thousand/uL MPV 10.1 7.5-12.5 fL ABSOLUTE NEUTROPHILS 5230 2074-6426 cells/uL ABSOLUTE LYMPHOCYTES 7577 185-2501 cells/uL ABSOLUTE MONOCYTES 545 200-950 cells/uL ABSOLUTE EOSINOPHILS 300 15-500 cells/uL ABSOLUTE BASOPHILS 40 0-200 cells/uL NEUTROPHILS 66.2 LYMPHOCYTES 22.6 MONOCYTES 6.9 EOSINOPHILS 3.8 BASOPHILS 0.5 HEMOGLOBIN A1c (496) Reviewed date:09/22/2023 01:50:40 PM Interpretation: Performing Lab:YOLANDA [facility], [facility] CenterXdyqZA[address] Rob Hu Notes/Report: NON-FASTING; NON-FASTING; NON-FASTING; NON-FASTING; [...] change in test platforms from the Espino Slicer Machine Operator to the Ramila fuentes c503 may have shifted HbA1c results compared to historical results. Based on laboratory validation testing conducted at [facility], the Ramila platform relative to the Espino [...] Lab:CB, [facility] [address], Allan CrainQtuiEL[address] Rob Hu Notes/Report: NON-FASTING; NON-FASTING; NON-FASTING; NON-FASTING; NON-FAST FASTING:YES FASTING: YES VITAMIN B12 560 375-4258 pg/mL Reason For Referral No Information Medications [...] review and pick correct strength-formulati on from Loterity options. If intended option is not shown, discontinue and re-order from Quick Search* Active Atorvastatin Calcium 80 MG 1 tab(s) orally at bedtime; Duration: 90 days Active clonazePAM 1 MG 1 tab(s) orally twic e a day prn for anxiety; Duration: 30 days 10/09/2023 Active Trelegy Ellipta 200 MCG-62.5 MCG-25 MCG/INH 1 PUFF(S) INHALED ONCE A DAY *Please review and pick correct strength-formulati on from Loterity options. If intended option is not shown, discontinue and re-order from High Performance Smart[employer]Building Search* Active Sertraline HCl 100 MG 2 tabs orally once a day Active Promethazine HCl 25 MG 1 tab(s) orally every 8 hours prn; Duration: 7 days Active GLUCOMETER NA USE FOR [...] Problem Status W/U Status Risk Notes Problem Mixed hyperlipidemia (610849975) Mixed hyperlipidemia (E78.2) Active confirmed Problem Mixed anxiety and depressive disorder (527063356) Depression with anxiety (F41.8) Active confirmed Problem Acute exacerbation of chronic obstructive airways disease (204762700) COPD exacerbation (J44.1) Active confirmed Problem Restless legs (07876280) RLS (restless legs syndrome) (G25.81) Active confirmed Problem Type 2 diabetes mellitus (78179694) Type 2 diabetes mellitus (E11.9) Active confirmed Problem Tobacco use (455422529) Tobacco use disorder (F17.200) Active confirmed Problem Status migrainosus (606107231) Migraine with status migrainosus, not intractable, unspecified migraine type (G43.901) Active confirmed Vital Signs Heart Rate 96 /min 09/21/2023 Temperature 97.8 degrees Fahrenheit 09/21/2023 Blood pressure diastolic 60 mm Hg 09/21/2023 Height 63 in 09/21/2023 Blood pressure systolic 112 mm Hg 09/21/2023 Weight 149.6 lbs 09/21/2023 BMI 26.5 kg/m2 09/21/2023 Encounters Encounter Location Date Provider Diagnosis [facility] [address] [facility] [address] [place] [address] 05/25/2024 Provider Migration [facility] [address] [facility] [address] [place] [address] 09/21/2023 Livier Crane Migraine with status migrainosus, not intractable, unspecified migraine type G43.901 ; Type 2 diabetes mellitus E11.9 ; B12 deficiency E53.8 ; Tremor R25.1 ; Depression with anxiety F41.8 ; Mixed hyperlipidemia E78.2 ; 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 ; Tobacco use disorder F17.200 and RLS (restless legs syndrome) G25.81 [facility] [address] [place] [address] 09/04/2023 Livier McNees [facility] [address] [place] [address] 09/11/2023 Manpreet Besson Acute cystitis without hematuria N30.00 [facility] [address] [place] [address] 09/22/2023 Livier McNees [facility] [address] [place] [address] 10/09/2023 Manpreet Besson [facility] [address] [place] [address] 10/20/2023 Livier BoNees Assessments Encounter Date Diagnosis (ICD Code) Assessment Notes Treatment Notes Treatment Clinical Notes Section Notes 09/11/2023 Acute cystitis without hematuria (ICD-10 - [...] and need for regular, balanced meals, outdoor activities/exerc ise and trigger (sunlight) etc - avoidance. 09/21/2023 B12 deficiency (ICD-10 - E53.8) Continue OTC b12 supplement, will check level today and treat as indicated. 09/21/2023 Tremor (ICD-10 - R25.1) Chronic, at [...] End Date [employer] MEDICARE DUAL [address] [address] [place] [address] [id number] Cecile Escobedo Self - patient is the [...]
--- OUTSIDE RECORDS SUMMARY | 2024-09-02 10:07 | XMS_ITS | Encounter Summary ---
Author Organization [employer] ([place], [place], [place], [place]) Address [address] [place] [address] Care Team Providers Care Pet Resort Concierge Name Role Phone Jayden Rowan MD Primary Care Provider [phone] Encounter Details Date Type Department Care Team (Late st Contact Info) Description 08/11/2020 Transcribed Document [facility] [place] [address] [place] [address] ProviderJason MD [address] [place], [place] [phone] Social History Tobacco Use Types Packs/Day Years Used Date Smoking Tobacco: Never Assessed Comments Unknown Sex and Gender Information Value Date Recorded Sex Assigned at Not on file Legal Sex Female 3:15 PM CDT Gender Identity Not on file Sexual Orientation Not on file documented as of this encounter Miscellaneous Notes * Cerner Conversion Note - Jason ProviderMD - 08/11/2020 2:02 PM CDT ED Discharge Entered On: 08/11/2020 14:13 EDT Performed On: 08/11/2020 14:02 EDT by RACHAEL QUINTANA, information systems administrator Process Patient Disposition : Discharge Personal Belongings [...] Prescriptions Given to Patient : No RACHAEL QUINTANA RN - 08/11/2020 14:13 EDT Electronically signed by Tadeo [facility] Conversion Linux Systems Engineer Cerner at 06/09/2022 3:31 PM CDT documented in this encounter Plan of Treatment Not on file documented as of this encounter Visit Diagnoses Not on filedocumented in this encounter Care Teams Pet Resort Concierge Relationship Specialty Start Date End Date Jayden Rowan MD [address] [place] [phone] PCP - General General Internal Medicine 07/05/22 documented as of this encounter
--- OUTSIDE RECORDS SUMMARY | 2024-09-02 10:07 | XMS_ITS | Encounter Summary ---
Author Organization [employer] ([place], [place], [place], [place]) Address [address] [place] [address] Care Team Providers Care Signal Maintenance Technician Name Role Phone Jayden Rowan MD Primary Care Provider [phone] Encounter Details Date Type Department Care Team (Late st Contact Info) Description 06/19/2019 Transcribed Document [facility] [place] [address] [place] [address] ProviderJason MD [address] [place] [address] Social History Tobacco Use Types [...] 06/19/2019 11:14 PM CDT Electronically signed by [facility] Conversion Automotive Technician Instructor Cerner at 06/09/2022 3:29 PM CDT documented in this encounter Plan of Treatment Not on file documented as of this encounter Visit Diagnoses Not on filedocumented in this encounter Care Teams Signal Maintenance Technician Relationship Specialty Start Date End Date Jayden Rowan MD [address] [place] [phone] PCP - General General Internal Medicine 07/05/22 documented as of this encounter
--- OUTSIDE RECORDS SUMMARY | 2024-09-02 10:07 | XMS_ITS | Encounter Summary ---
Author Organization [employer] ([place], [place], [place], [place]) Address [address] [place] [address] Care Team Providers Care Head Waiter/Waitress Name Role Phone Jayden Rowan MD Primary Care Provider [phone] Encounter Details Date Type Department Care Team (Late st Contact Info) Description 06/19/2019 Transcribed Document [facility] [place] [address] [place] [address] ProviderJason MD [address] [place] [address] Social History Tobacco Use Types [...] Jason ProviderMD - 06/19/2019 8:59 PM CDT [place] Suicide Severity Rating Scale (C-SSRS) Entered On: 06/19/2019 21:09 EDT Performed On: 06/19/2019 21:09 EDT by Dottie Baltazar RN [place] Suicide Severity Rating Scale (C-SSRS) CSSRS Past Month Wish to be : No CSSRS Past Month Suicidal Thoughts : No CSSRS Lifetime Suicide Behavior : No Suicide Severity Rating Score : 0 Suicide Severity Rating : No Additional Care Required at this time Dottie Baltazar RN - 06/19/2019 21:09 EDT Electronically signed by Jolie Piedra Conversion Compensation And Benefits Manager Cerner at 06/09/2022 3:28 PM CDT documented in this encounter Plan of Treatment Not on file documented as of this encounter Visit Diagnoses Not on filedocumented in this encounter Care Teams Head Waiter/Waitress Relationship Specialty Start Date End Date Jayden Rowan MD [address] [place] [phone] PCP - General General Internal Medicine 07/05/22 documented as of this encounter
--- OUTSIDE RECORDS SUMMARY | 2024-09-02 10:07 | XMS_ITS | Encounter Summary ---
Author Organization [employer] ([place], [place], [place], [place]) Address [address] [place] [address] Care Team Providers Care Director Of Valuation Name Role Phone Leanna Rivera MD Primary Care Provider [phone] Encounter Details Date Type Department Care Team (Late st Contact Info) Description 05/23/2018 Transcribed Document [facility] [place] Medicine [address] [place] [address] ProviderJason MD [address] [place] [address] Social History Tobacco Use Types [...] Zendejas MD - 05/23/2018 6:05 PM CDT [facility] [address] [place] [id number] Patient Information Name: CECILE RAMIREZ Age: 63 Years Date of : 1955 Arrival Time: 05/23/2018 17:19:00 Diagnosis Migraine Primary Care Physician: LEANNA RIVERA MD-INT Provider Information Primary Provider: TONEY JORGENSEN MD Secondary Provider: JAMES CECILE DARREN has been given the following list of patient education materials, prescriptions and follow-up instructions: Follow-up Instructions: With: Address: When: LEANNA RIVERA [address] [place] [address], [address] [place] [id number] Business (1) Within 2 to 3 days [...] these instructions at home: Medicines ??? Take cxac-xxc-siactod and prescription medicines only as told by your health care provider. ??? Do notdrive or use heavy machinery while taking prescription pain medicine. ??? To prevent or treat constipation while you are taking prescription pain medicine, your health care provider may recommend that you: ? Drink enough fluid to keep your urine clear or pale yellow. ? Take seft-vjs-mbtjmlu or prescription medicines. ? Eat foods that [...] 02/06/2006 Document Revised: 08/26/2016 Document Reviewed: 07/25/2016 [employer] Interactive Patient Education ? 2016 [employer]ously. Allergies: acetaminophen-HYDROcodone; Maxalt; Imitrex; Zofran; HYDROmorphone; morphine; [...] verify that CECILE RAMIREZ was seen at [facility] Emergency Department on ,05/23/2018 18:05:18. This [...] along the way. As a healthcare provider, [facility] recommends that you stop smoking. Assistance with quitting is available by contacting 3-059-PFHY-NOW. This is a free resource providing counseling, [...] Electronic Communications Privacy Act 18 U.S.C. ???Sections 0542-4099,?? and contain information intended for the specified [...] Be sure to sign up for the [employer] patient portal, which gives you 12/09 access to your medical information ??? including these discharge instructions ??? using your computer, smartphone, or tablet. Just go to [employer] to get started. Questions? Call . Acknowledgment [...] on filedocumented in this encounter Care Teams Director Of Valuation Relationship Specialty Start Date End Date Leanna Rivera MD [address] [place] [phone] PCP - General General Internal Medicine 07/05/22 documented as of this encounter
--- OUTSIDE RECORDS SUMMARY | 2024-09-02 10:07 | XMS_ITS | Encounter Summary ---
Author Organization [employer] ([place], [place], [place], [place]) Address [address] [place] [address] Care Team Providers Care Chief Data Officer Name Role Phone Jayden Rowan MD Primary Care Provider [phone] Encounter Details Date Type Department Care Team (Late st Contact Info) Description 08/11/2020 Transcribed Document [facility] [place] [address] [place] [address] ProviderJason MD [address] [place] [address] Social History Tobacco Use Types Packs/Day Years Used Date Smoking Tobacco: Never Assessed Comments Unknown Sex and Gender Information Value Date Recorded Sex Assigned at Not on file Legal Sex Female 3:15 PM CDT Gender Identity Not on file Sexual Orientation Not on file documented as of this encounter Miscellaneous Notes * Cerner Conversion Note - Jason ProviderMD - 08/11/2020 12:33 PM CDT Pain Assessment [...] on filedocumented in this encounter Care Teams Chief Data Officer Relationship Specialty Start Date End Date Jayden Rowan MD [address] [place] [phone] PCP - General General Internal Medicine 07/05/22 documented as of this encounter
--- NOTE | 2024-09-02 10:26 | EXP.PAIN.SOA ---
[facility] Disclaimer: The information contained in this section may have been updated after the patient was seen, as this information can be updated by other users. Medical History E-coli UTI Encounter for hepatitis C screening test for low risk patient Screening for HIV (human immunodeficiency virus) Encounter to establish care Allergic reaction to chemical substance Urticaria Right otitis media Viral respiratory illness Wheezing Migraine headache Closed fracture of right distal radius MDD (major depressive disorder) Mood disorder On SSRI. Declined refrerral to coounselor or Behavioral Health. Sprain of right wrist Episodic migraine Acute UTI Back pain Allergic reaction Chest pain at rest Back pain Chest pain Chest pain Indigestion Atypical chest pain Seizure disorder History of seizure in 2015, unable to provide further information. Records from [facility] requested Tremor History familial tremor. Hernia Urinary incontinence, mixed GERD (gastroesophageal reflux disease) Anxiety and depression Type 2 diabetes mellitus COPD (chronic obstructive pulmonary disease) Hyperlipidemia Surgical History History of bladder surgery H/O hernia repair H/O: hysterectomy History of cholecystectomy Hx of appendectomy H/O neck surgery Family History Other Cancer Diabetes Social History Smoking Status: Current every day smoker alcohol intake: never substance use type: denies use current occupational status: other Travel in the last 8 weeks?: None household members: significant other housing: house marital status: caffeine: Yes PM Subjective & Objective Subjective Subjective:: Patient is a pleasant 69-year-old female who presents today for worsening neck pain with numbness and tingling that does radiate down primarily the left arm into her thumb and index finger but is starting to have the radicular symptoms into her right thumb as well. Patient does state that the left-sided symptoms are worse than the right. Patient has had this chronic pain in her neck for longer than 3 months and progressively worsening. 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 Patient does also state that she has been having increased headaches and that she even felt more off balance and fell last Wednesday. Patient denies any specific injuries from this however states that it continues to get worse. Patient is also in the process of getting a intrathecal pain pump trial however has not heard back yet on insurance. Patient denies any other changes. She is prescribed compounded cream from our office. Her Willie has been reviewed and is appropriate. Review of Systems: General: No recent weight changes, no fever, no sleep disturbances Respiratory: No cough, no shortness of air, no recurring pulmonary infections Cardiovascular/peripheral vascular: No chest pain, no palpitations, no edema, no shortness of breath Gastrointestinal: No new onset incontinence, normal bowel movements reported Genitourinary: No new onset incontinence Musculoskeletal: Neck pain, left arm numbness tingling, right thumb numbness, left thumb and index finger numbness Psychiatric: [Normal mood/affect] Neurological: [Denies weakness in extremities], [denies balance issues] Pain at rest (0-10 scale): 7 Objective Objective:: Physical Exam: General: Alert and oriented x3, no acute distress, pleasant and cooperative Lungs: Respirations even and unlabored, symmetrical chest expansion Eyes: PERRL Musculoskeletal: Flexion and extension of cervical [spine] somewhat guarded secondary to pain, [antalgic gait noted] positive Spurling's test Neurological: Speech clear, no gross sensory deficit Has patient had previous pain injection?: No Conservative treatment options previously tried: Home exercise plan Length of treatment: Longer than 12 weeks Meds Home Medications and Allergies Home Medications ?Medication ?Instructions ?Recorded ?Confirmed ?Type alcohol swabs (DropSafe Alcohol 1 pad topical DIRECTED 10/30/23 08/26/24 History Prep Pads) blood sugar diagnostic (Accu-Chek #10 ea 10/30/23 08/26/24 History Guide test strips) blood-glucose meter (Accu-Chek #1 ea 10/30/23 08/26/24 History Guide Me Glucose Meter) ipratropium 0.5 mg-albuterol 3 mg 3 ml inhalation Q4-6H PRN 10/30/23 08/26/24 History (2.5 mg base)/3 mL nebulization Breathing Problems soln lancets (Accu-Chek Softclix #100 ea 10/30/23 08/26/24 History Lancets) syringe with needle 3 mL 23 x 1 #1 ea 10/30/23 08/26/24 History (BD Luer-Konrad Syringe) famotidine 20 mg tablet 20 mg PO BID #180 tabs 11/16/23 08/26/24 Rx ropinirole 3 mg tablet 3 mg PO DAILY #90 tabs 12/14/23 08/26/24 Rx atorvastatin 80 mg tablet 80 mg PO DAILY #90 tabs 05/22/24 08/26/24 Rx promethazine 25 mg tablet 25 mg PO Q8HP PRN motion sickness 06/27/24 08/26/24 Rx #90 tabs dulaglutide 3 mg/0.5 mL See Rx Instructions .Route 07/22/24 08/26/24 Rx subcutaneous pen injector .COMPLEX #2 mL (Trulicity) albuterol sulfate 90 mcg/actuation 2 inh inhalation Q4-6H PRN 07/29/24 08/26/24 Rx aerosol inhaler Breathing Problems #8.5 grams azelastine 137 mcg (0.1 %) nasal 2 spray intranasal BID . #30 mL 07/29/24 08/26/24 Rx spray eptinezumab-jjmr 100 mg/mL 100 mg IV [id number] 07/29/24 08/26/24 Rx intravenous solution (Vyepti) fluticasone fur. 200 mcg-umeclid 1 inh inhalation DAILY #60 ea 07/29/24 08/26/24 Rx 62.5 mcg-vilant 25 mcg inhalat.powder (Trelegy Ellipta) meclizine 25 mg tablet 25 mg PO BID PRN motion sickness 07/29/24 08/26/24 Rx #60 tabs ubrogepant 100 mg tablet (Ubrelvy) 100 mg PO DAILY PRN Migraine 07/29/24 08/26/24 Rx Headache #30 tabs fenofibrate nanocrystallized 145 145 mg PO DAILY #30 tabs 07/31/24 08/26/24 Rx mg tablet sertraline 100 mg tablet See Rx Instructions .Route 07/31/24 08/26/24 Rx .COMPLEX #60 tabs sodium,potassium,mag sulfates 17.5 See Rx Instructions PO .COMPLEX 08/05/24 08/26/24 Rx gram-3.13 gram-1.6 gram oral soln #354 mL (Suprep Bowel Prep Kit) buspirone 10 mg tablet 10 mg PO BID #60 tabs 08/21/24 08/26/24 Rx metoclopramide HCl 10 mg tablet 10 mg PO ACHS nausea and vomiting 08/21/24 08/26/24 Rx #120 tabs clonazepam 1 mg tablet 1 mg PO BID #60 tabs 08/26/24 08/26/24 Rx New Prescriptions to Start Prescriptions: Allergies Allergy/AdvReac Type Severity Reaction Status Date / Time acetaminophen (From Lortab) Allergy Intermediate Verified 08/26/24 14:19 hydrocodone (From Lortab) Allergy Intermediate Verified 08/26/24 14:19 codeine AdvReac Severe Verified 08/26/24 14:19 hydromorphone (From Dilaudid) AdvReac Severe Verified 08/26/24 14:19 morphine AdvReac Severe Verified 08/26/24 14:19 oxycodone AdvReac Severe Verified 08/26/24 14:19 topiramate AdvReac Severe Hives Verified 08/26/24 14:19 ondansetron (From Zofran) AdvReac Intermediate Verified 08/26/24 14:19 Assessment and Plan *Assessment and plan (1) Cervical pain (neck): Status: Acute Category: Medical Code(s): M54.2 - Cervicalgia (2) Cervical radiculopathy: Status: Acute Category: Medical Code(s): M54.12 - Radiculopathy, cervical region Plan Patient is experiencing worsening pain in their neck with radiating tingling and burning sensations into their bilateral upper extremities. Patient did have limited range of motion of her cervical spine with a positive Spurling's test. I did discuss with the patient that I do believe they would benefit from a cervical epidural steroid injection. Risk and benefits were discussed with patient and they would like to proceed forward with this plan of care. Patient has tried and failed conservative therapy including oral medications, heat and ice, topicals, at home stretching exercise for longer than 12 weeks that was physician guided. Patient has not had cervical epidurals from our office in the past to compare to. Patient's symptoms are consistent with the C6-C7 dermatome. I did intake counselor the patient that we would plan for this level. Patient has had chronic neck pain for longer than a year. Patient will be scheduled for a JUSTIN C6-C7 under fluoroscopy. Patient denies any blood thinners. Patient has been instructed to contact the clinic with any concerns before the next appointment. Dr. Sheehan has reviewed this note and agrees with this plan of care. This note was dictated using voice recognition software and make contain errors or omissions. All injections are used with Lidocaine, Bupivacaine and dexamethasone unless otherwise stated as a diagnostic in which it has no steroid. Occasionally urine drug screen is needed to verify patient's compliance with our office pain contract. This is ordered based off specific treatments related to chronic pain with the potential to abuse certain medications.
[2024-09-02 10:54] VITALS: BP 95/63; PULSE 91; RESP 14; O2SAT 97; BMI 25.2
== END 2024-09-02 23:59 | disposition home or self-care (01) ==
LOC: SC.PAIN 10:04
PROVIDERS: PCP Nurse Practitioner Family; Visit Provider Nurse Practitioner Family
DX: M54.12 Radiculopathy, cervical region (principal)
CPT/HCPCS: 99212; G0463

== ENCOUNTER 2024-09-25 09:49 | Outpatient (CLI) | payer MEDICARE, MEDICAID, SELFPAY ==
--- OUTSIDE RECORDS SUMMARY | 2023-12-28 06:15 | XMS_ITS ---
Author Organization [facility] Address [address] [place] [address] Care Team Providers Care Plant Pathologist Name Role Phone Enoc Crane Primary Care Provider [phone] ENOC Crane APRN Unavailable Unavailable REASON FOR VISIT 3 Month F/U Encounters Encounter Location Date Provider Diagnosis [facility] [address] [place], [place] [address] 12/28/2023 Enoc Crane Plan Of Treatment No Information Progress Notes * RAMIREZAlejandra VERONICAWillie:1955 (69 yo F)Acc No.[id number]:12/28/2023 Progress Notes Patient: Cecile HUSSEIN Provider: Monie Crane APRN :1955 A ge:68 Y S ex:Female Date:12/28/2023 Address:[address] [id number] Subjective: * Chief Complaints: * 1 . 3 Month F/U. * Medical History: Objective: * Vitals: Assessment: Plan: * Treatment: * * Electronic signature of Phan Crane APRN on 09/25/2024 at 09:52 AM EDT Sign off status: Pending * Provider: Monie Crane APRN Date: 02/26/2023 Generated for Printi ng/Faxing/eTransmitting on: 0 09/25/2024 09:52 AM EDT
--- OUTSIDE RECORDS SUMMARY | 2024-05-25 17:30 | XMS_ITS ---
Author Organization [facility] Address [address] [place] [address] Care Team Providers Care Contract Project Manager Name Role Phone Enoc Crane Primary Care Provider [phone] ENOC Crane APRN Unavailable Unavailable Migration, Provider Unavailable Unavailable Allergies Allergen (clinical drug ingredient) Drug/Non Drug Allergy documented on EMR Reaction Allergy Type Onset Date Status PERCODAN (uncoded) hallunications Allergy Active ZOFRAN (uncoded) stomach upset Allergy Active hydromorphone Dilaudid vomiting Drug Allergy Act florecita morphine Morphine vomiting Drug Allergy Active REASON FOR VISIT [facility] Conversion Encounter [...] Active Encounters Encounter Location Date Provider Diagnosis [facility] [address] [facility] [address] [place] [address] 05/25/2024 Provider Migration Plan Of Treatment Medication [...] Notes * Rivas RAMIREZB:1955 (69 yo F)Acc No.[id number]:05/25/2024 Patient: Alejandra HUSSENInda Provider: Pankaj thomson Migration :1955 A ge:69 Y S ex:Female Date:05/25/2024 Address:[address] [place], [place] [id number] Pcp:Enoc Crane Subjective: * Chief Complaints: * 1 . Multum To Medispan Conversion Encounter. * Medical History: * Medications: T peterg Trelegy Ellipta 200 MCG-62.5 MCG-25 MCG/INH POWDER 1 PUFF(S) INHALED ONCE A DAY , Notes to Pharmacist: *Please review and pick correct strength-formulation from [facility] options. If intended option is not shown, [...] Electronic signature of Prov ider Migration on 09/25/2024 at 09:51 AM EDT Sign off status: Pending * Provider: Pankaj thomson Migration Date: 0 05/25/2024 Generated for Yumiko robison/Margarette/Martha on: 0 09/25/2024 09:51 AM EDT
--- NOTE | 2024-09-25 09:51 | XR_ITS ---
FINAL REPORT CLINICAL HISTORY: Neck pain COMPARISON: None FINDINGS: Three views of the cervical spine were obtained. There is anterior and interbody fusion at C5-6 and C6-7. The vertebrae are normal in height. There is no fracture present. There is no malalignment. There are no significant degenerative changes. The patient is edentulous. IMPRESSION: No acute process. Reviewed, Interpreted and Dictated by Sy Brantley MD Transcribed by Estrella Helms Authenticated and . [facility]
--- OUTSIDE RECORDS SUMMARY | 2024-09-25 09:51 | XMS_ITS | Encounter Summary ---
Author Organization [employer] ([place], [place], [place], [place]) Address [address] [place] [address] Care Team Providers Care Solution Designer Name Role Phone Leanna Rivera MD Primary Care Provider [phone] Encounter Details Date Type Department Care Team (Late st Contact Info) Description 05/10/2021 Transcribed Document [facility] Radiology [address] [place] [address] Lisa Rivera MD [facility] Dept of Emergency Medicine [place] [id number] Social History Tobacco Use Types Packs/Day Years [...] Jean Carlos rded Speak language other than Singaporean at home Not on file 03/10/2023 Want [...] blocks. Pt is considering establishing care with cork painter and grader but has not yet done so.. Review [...] EDT Height Source Stated Height Entry Format [place] Height/Length, SENEGALESE (ft) 5 ft Height/Length SENEGALESE 3 Inch CLINICALHEIGHT 160.02 cm [place] Body Weight 52.02 kg Weight Source, ED Standing scale Weight Entry Format [place] Weight Singaporean lb 140 lb CLINICALWEIGHT 63.64 kg Body [...] Triage: ED C-SSRS: ED Clinical Reconciliation: ED courtesy bus driver: fentaNYL: 100 mcg, IntraMuscular, 1-Time promethazine: 25 [...] with specialist Within 2 to 4 days transition of care specialist; JOSHUA MCNEAL Within 2 to 4 days One option for cork painter and grader. Counseled: Patient, Regarding treatment plan. documented in this encounter Plan of Treatment Not on file documented as of this encounter Visit Diagnoses Not on filedocumented in this encounter Care Teams Solution Designer Relationship Specialty Start Date End Date Leanna Rivera MD [address] [place] [phone] PCP - General General Internal Medicine 07/05/22 documented as of this encounter
--- OUTSIDE RECORDS SUMMARY | 2024-09-25 09:51 | XMS_ITS | Encounter Summary ---
Author Organization [employer] ([place], [place], [place], [place]) Address [address] [place] [address] Care Team Providers Care Shotgun Shell Reprinting Unit Operator Name Role Phone Jayden Rowan MD Primary Care Provider [phone] Encounter Details Date Type Department Care Team (Late st Contact Info) Description 08/24/2021 Transcribed Document [facility] [place] [address] [place] [address] ProviderJason MD [address] [place] [address] Social History Tobacco Use Types [...] Jean Carlos rded Speak language other than Bulgarian at home Not on file 03/10/2023 Want [...] On: 08/24/2021 21:39 EDT by Ewa Villagran TOWEL HEMMER Discharge Vital Signs Peripheral Pulse Rate : 64 bpm Respiratory Rate : 18 Breaths/Min Oxygen Saturation : 99 % Oxygen Therapy Mode : Room air Ewa Villagran RN - 08/24/2021 21:39 EDT Electronically signed by Tadeo [facility] Conversion Nursing Program Manager Cerner at 06/09/2022 3:31 PM CDT documented in this encounter Plan of Treatment Not on file documented as of this encounter Visit Diagnoses Not on filedocumented in this encounter Care Teams Shotgun Shell Reprinting Unit Operator Relationship Specialty Start Date End Date Jayden Rowan MD [address] [place] [phone] PCP - General General Internal Medicine 07/05/22 documented as of this encounter
--- OUTSIDE RECORDS SUMMARY | 2024-09-25 09:51 | XMS_ITS | Encounter Summary ---
Author Organization [employer] ([place], [place], [place], [place]) Address [address] [place] [address] Care Team Providers Care Handle Sander Operator Name Role Phone Jayden Rowan MD Primary Care Provider [phone] Encounter Details Date Type Department Care Team (Late st Contact Info) Description 10/19/2021 Transcribed Document [facility] [place] Medicine [address] [place] [address] ProviderJason MD [address] [place] [address] Social History Tobacco Use Types [...] rded Speak language other than [place] at home Not on file 03/10/2023 Want [...] 10/19/2021 15:40 EDT Electronically signed by Tadeo [facility] Conversion Technician Telecommunication Systems Cerner at 06/09/2022 3:27 PM CDT documented in this encounter Plan of Treatment Not on file documented as of this encounter Visit Diagnoses Not on filedocumented in this encounter Care Teams Handle Sander Operator Relationship Specialty Start Date End Date Jayden Rowan MD [address] [place] [phone] PCP - General General Internal Medicine 07/05/22 documented as of this encounter
--- OUTSIDE RECORDS SUMMARY | 2024-09-25 09:51 | XMS_ITS | Encounter Summary ---
Author Organization [employer] ([place], [place], [place], [place]) Address [address] [place] [address] Care Team Providers Care Facialist Name Role Phone Jayden Rowan MD Primary Care Provider [phone] Encounter Details Date Type Department Care Team (Late st Contact Info) Description 11/03/2020 Transcribed Document [facility] [place] [address] [place] [address] ProviderJason MD [address] [place] [address] Social History Tobacco Use Types [...] Jason ProviderMD - 11/03/2020 10:54 AM CDT [place] Suicide Severity Rating Scale (C-SSRS) Entered On: 11/03/2020 11:16 EDT Performed On: 11/03/2020 11:14 EDT by BORIS METZ RN [place] Suicide Severity Rating Scale (C-SSRS) CSSRS Past [...] on filedocumented in this encounter Care Teams Facialist Relationship Specialty Start Date End Date Jayden Rowan MD [address] [place] [phone] PCP - General General Internal Medicine 07/05/22 documented as of this encounter
--- OUTSIDE RECORDS SUMMARY | 2024-09-25 09:51 | XMS_ITS | Encounter Summary ---
Author Organization [employer] ([place], [place], [place], [place]) Address [address] [place] [address] Care Team Providers Care Business Development Recruiter Name Role Phone Leanna Rivera MD Primary Care Provider [phone] Encounter Details Date Type Department Care Team (Late st Contact Info) Description 11/03/2020 Transcribed Document [facility] [place] [address] [place] [address] ProviderJason MD [address] [place] [address] Social History Tobacco Use Types [...] Zendejas MD - 11/03/2020 12:03 PM CDT [facility] [address] [place] [address] CECILE RAMIREZIL :1955 Visit Time:11/03/2020 [...] Within 2 to 3 days Where: [address] [address] [facility] (1) Allergies HYDROmorphone Imitrex Maxalt [...] these instructions at home: Medicines ??? Take ypfi-fje-nwrmqgq and prescription medicines only as told by your health care provider. ??? Ask your health care provider if the medicine prescribed to you: ? Requires you to avoid driving or using heavy machinery. ? Can cause constipation. You may need to take these actions to prevent or treat constipation: ? Drink enough fluid to keep your urine pale yellow. ? Take mfkl-rio-dyowxqz or prescription medicines. ? Eat foods that [...] provider. Document Revised: 05/31/2019 Document Reviewed: 03/21/2019 [employer] Patient Education ?? 2020 [employer]. Emergency Awareness and Preventative Care STROKE is [...] Assistance with quitting is available by contacting 7-636-LCTD-NOW. This is a free resource providing counseling, [...] was given the opportunity to ask questions. Patient/Set Up And Lay Out Inspector Name: Patient/Set Up And Lay Out Inspector Signature: Relationship to Patient: Clinician/Hospital Set Up And Lay Out Inspector Signature: Please Provide a Telephone Number Where You Can Be Reached: Is it Permissible To Leave a Message? Date: Electronically signed by [facility], [facility] Conversion Chemical Plant Technical Director Cerner at 06/09/2022 3:31 PM CDT documented in this encounter Plan of Treatment Not on file documented as of this encounter Visit Diagnoses Not on filedocumented in this encounter Care Teams Business Development Recruiter Relationship Specialty Start Date End Date Leanna Rivera MD [address] [place] [address] [place] [phone] PCP - General General Internal Medicine 5/16/23 documented as of this encounter
--- OUTSIDE RECORDS SUMMARY | 2024-09-25 09:51 | XMS_ITS | Encounter Summary ---
Author Organization [employer] ([place], [place], [place], [place]) Address [address] [place] [address] Care Team Providers Care Imaging System Administrator Name Role Phone Jayden Rowan MD Primary Care Provider [phone] Encounter Details Date Type Department Care Team (Late st Contact Info) Description 10/02/2020 Transcribed Document [facility] [place] [facility] [place] [address] ProviderJason MD [address] [place], [place] [id number] Social History Tobacco Use Types Packs/Day Years [...] On: 10/02/2020 12:18 EDT by Tori Rolon manager quality compliance Process Patient Disposition : Discharge Personal Belongings [...] - 10/02/2020 12:18 EDT Electronically signed by [facility], [facility] Conversion [employer] Cerner at 06/09/2022 3:29 PM CDT documented in this encounter Plan of Treatment Not on file documented as of this encounter Visit Diagnoses Not on filedocumented in this encounter Care Teams Imaging System Administrator Relationship Specialty Start Date End Date Jayden Rowan MD [address] [place] [phone] PCP - General General Internal Medicine 07/05/22 documented as of this encounter
--- OUTSIDE RECORDS SUMMARY | 2024-09-25 09:52 | XMS_ITS | Clinical Summary ---
Author Organization [employer] ([place], [place], [place], [place]) Address [address] [place] [address] Care Team Providers Care French Lecturer Name Role Phone Jayden Rowan MD Primary Care Provider [phone] Allergies Active Allergy Reactions Criticality Noted Date [...] Jean Carlos rded Speak language other than Hong [place]er at home Not on file 03/10/2023 Want [...] Res ult [facility] [address] [phone] from Last 3 Months or Most Recently Relevant to Health Maintenance Insurance [id number] (Home) 108 [facility] [place] [id number] MEDICAID [facility] HUMANA COMMERCIAL MEDICAID [facility] Advance Directives For more information, please contact: [phone] Documents on File Type Date Recorded Patient Event Host Expl anation Advance Directives and Livin g Will 07/07/2022 7:11 AM * Full Code (Latest Code Status on File) Date Activated Date Inactivated Comments 07/07/2022 4:06 PM 07/08/2022 4:14 PM Care Teams French Lecturer Relationship Specialty Start Date End Date Jayden Rowan MD [address] [place] [phone] PCP - General General Internal Medicine 07/05/22
--- OUTSIDE RECORDS SUMMARY | 2024-09-25 09:52 | XMS_ITS | Encounter Summary ---
Author Organization [employer] ([place], [place], [place], [place]) Address [address] [place] [address] Care Team Providers Care Steam Shovelman Name Role Phone Jayden Rowan MD Primary Care Provider [phone] Encounter Details Date Type Department Care Team (Late st Contact Info) Description 06/19/2019 Transcribed Document [facility] [place] [address] [place] [address] ProviderJason MD [address], [place] [id number] Social History Tobacco Use Types Packs/Day Years [...] On: 06/19/2019 23:20 EDT by Mark Olmedo, Parcel Post Carrier Process Patient Disposition : Discharge Personal Belongings [...] EDT Electronically signed by Jolie Piedra Conversion Furnace And Wash Equipment Operator Cerner at 06/09/2022 3:27 PM CDT documented in this encounter Plan of Treatment Not on file documented as of this encounter Visit Diagnoses Not on filedocumented in this encounter Care Teams Steam Shovelman Relationship Specialty Start Date End Date Jayden Rowan MD [address] [place] [phone] PCP - General General Internal Medicine 07/05/22 documented as of this encounter
--- OUTSIDE RECORDS SUMMARY | 2024-09-25 09:52 | XMS_ITS | Encounter Summary ---
Author Organization [employer] ([place], [place], [place], [place]) Address [address] [place] [address] Care Team Providers Care Labor Commissioner Name Role Phone Jayden Rowan MD Primary Care Provider [phone] Encounter Details Date Type Department Care Team (Late st Contact Info) Description 06/19/2019 Transcribed Document [facility] [place] [address] [place] [address] ProviderJason MD [address] [place] [address] Social History Tobacco Use Types [...] 06/19/2019 11:14 PM CDT Electronically signed by [facility] Conversion Pipe Assembly Worker Cerner at 06/09/2022 3:29 PM CDT documented in this encounter Plan of Treatment Not on file documented as of this encounter Visit Diagnoses Not on filedocumented in this encounter Care Teams Labor Commissioner Relationship Specialty Start Date End Date Jayden Rowan MD [address] [place] [phone] PCP - General General Internal Medicine 07/05/22 documented as of this encounter
--- OUTSIDE RECORDS SUMMARY | 2024-09-25 09:52 | XMS_ITS | Clinical Summary ---
Author Organization [facility] Address [address] [place] [address] Care Team Providers Care Skin Care Instructor Name Role Phone Torie Duong APRN Primary Care Provider [phone] Allergies Active Allergy Reactions Criticality Noted Date Comments Acetaminophen Unknown - High Severity High 08/11/2023 Adhesive Tape Other (See Comments) 06/16/2015 Pulls skin Codeine Other (See Comments) Low 07/12/2011 Hydromorphone Hcl 06/16/2015 Hydrocodone-Acetaminoph en GI Intolerance 10/04/2011 Meperidine Other (See Comments) Low 10/30/2019 Nausea and vomiting Metformin Other (See Comments) Low 12/11/2020 Vomiting Methocarbamol Nausea And Vomiting 07/09/2021 Morphine And Codeine Other (See Comments) Low 07/11 Nausea and vomiting Nausea and vomiting Ondansetron Dizziness High 06/16/2015 Patient said made dizzy and vomit more Oxycodone Unknown - High Severity High 08/11/2023 Rizatriptan Other (See Comments) 01/24/2022 Silver Rash Low 06/16/2015 Sumatriptan Unknown - Low Severity 01/24/2022 Medications fluticasone (FLONASE) 50 MCG/ACT nasal spray fluticasone propionate 50 mcg/actuation nasal spray,suspension Active diazePAM (Valium) 5 MG tabletIndicatio ns:Claustrophob ia TAke 1 30min before MRI and may repeat x 1 2 tablet 3 Active Alcohol Swabs (DropSafe Alcohol Prep) 70 % pads 4 Active amitriptyline (ELAVIL) 50 MG tablet Take 1 tablet by mouth Daily. Active amoxicillin-cla vulanate (AUGMENTIN) 875-125 MG per tablet Take 1 tablet by mouth Every 12 (Twelve) Hours. 5 Active Atogepant (Qulipta) 60 MG tablet Take 1 tablet by mouth Daily. Active atorvastatin (LIPITOR) 80 MG tablet Take 1 tablet by mouth every night at bedtime. Active buPROPion SR (WELLBUTRIN SR) 150 MG 12 hr tablet Take 1 tablet by mouth Every 12 (Twelve) Hours. 4 Active Vraylar 1.5 MG capsule capsule Take 1 capsule by mouth Daily. 4 Active clonazePAM (KlonoPIN) 1 MG tablet Take 1 tablet by mouth 2 (Two) Times a Day As Needed. Active Coenzyme Q10 (Co Q-10) 100 MG capsule Take 100 mg by mouth Daily. 4 Active cyanocobalamin (VITAMIN B-12) 500 MCG tablet Take 1 tablet by mouth Daily. Active diclofenac (VOLTAREN) 75 MG EC tablet Take 1 tablet by mouth 2 (Two) Times a Day. Active Trulicity 1.5 MG/0.5ML solution auto-injector Inject 1.5 mg as directed. 5 Active Trelegy Ellipta 200-62.5-25 MCG/ACT inhaler Inhale Daily. Active galcanezumab-gn lm (Emgality) 120 MG/ML auto-injector pen Inject 1 mL under the skin into the appropriate area as directed 1 (One) Time. Active meclizine (ANTIVERT) 25 MG tablet Take 1 tablet by mouth 2 (Two) Times a Day As Needed. 5 Active Methylcobalamin 1000 MCG sublingual tablet Take 1 each by mouth Daily. Active nicotine (NICODERM CQ) 21 MG/24HR patch Place 1 patch on the skin as directed by provider Daily. Active pantoprazole (PROTONIX) 40 MG EC tablet Take 1 tablet by mouth Daily. Active predniSONE (DELTASONE) 20 MG tablet Take 1 tablet by mouth. 5 Active promethazine-de xtromethorphan (PROMETHAZINE-D M) 6.25-15 MG/5ML syrup TAKE 5 ML BY MOUTH EVERY 4 TO 6 HOURS NEEDED FOR COUGH 5 Active promethazine (PHENERGAN) 25 MG tablet Take 1 tablet by mouth Every 8 (Eight) Hours As Needed. Active rOPINIRole (REQUIP) 3 MG tablet Take 1 tablet by mouth Daily. 4 Active sertraline (ZOLOFT) 100 MG tablet Take 2 tablets by mouth Daily. Active SUMAtriptan (IMITREX) 100 MG tablet Take 1 tablet by mouth. Active topiramate (TOPAMAX) 100 MG tablet Take 1 tablet by mouth 2 (Two) Times a Day. Active triamcinolone (KENALOG) 0.5 % cream Apply 1 Application topically to the appropriate area as directed 2 (Two) Times a Day. Apply topically to the affected area twice daily 4 Active varenicline (CHANTIX) 1 MG tablet Take 1 tablet by mouth 2 (Two) Times a Day. Active Active Problems Problem Noted Date Diagnosed Date Urinary urgency 10/19/2021 Overview (10/19/2021): 10/18/2021 COMMERCIAL ENERGY RATER consult-urgency and frequency without evidence of prolapse-do not think pessary is beneficial-encourage urology consultation-planned with [place]. Persistent migraine aura without cerebral infarc tion 08/10/2021 Depression 09/23/2020 Hyperlipemia 09/23/2020 Migraine 09/02/2019 Incomplete bladder emptying 01/30/2017 COPD (chronic obstructive pulmonary disease) 06/2016 Smoker 08/15/2016 Overview (10/06/2021): Smoker 1ppd smoked since 18 yo never had cessation Annual COMMERCIAL ENERGY RATER exam S/P LAVHBSO 06/17/2016 Overview (10/19/2021): SCREENING TESTS Year 2016 2017 2018 2018 2019 2020 2021 2022 2023 2024 2025 2026 2027 2028 2029 2030 Age LOUISE [Birads] DARREN score Colonoscopy DEXA [T-score] Frax [hip/any] Lipids [LDL / HDL / TG] Vitamin D TSH Enter the month test was performed. If month not known, enter X' Black numbers = normal results Red numbers = abnormal results Black X = patient reported normal Red X - patient reported abnormal Referred by: Profession: Other info: GERD Resolved Problems Problem Noted Date Diagnosed Date Resolved Date History of anorexia nervosa 10/06/2021 10/19/2021 Overview (10/06/2021): In childhood Acute pyelonephritis 12/11/2020 022 Diabetes mellitus 09/23/2020 10/19/2021 Cystocele with rectocele 01/30/2017 Recurrent major depression 01/24/2017 0 10/19/2021 Pneumonia 10/11/2013 08/15/2016 Respiratory failure 10/11/2013 08/16/19 17 Seizures 10/19/2021 Overview (10/06/2021): Per pt had neurology in past last seen 2 yr ago and did tno need to see again and did not need to take meds. Data deficient. Unsure of neurologist pt has seen in past Immunizations Immunization Administration Dates Next Due COVID-19 (UNSPECIFIED) 05/28/2020 Flu Vaccine Split Quad 11/08/2017 Fluzone >6mos 09/27/2016 Fluzone (or Fluarix & Flulaval for VFC) >6mos Fluzone Quad >6mos (Multi-dose) 10/04/2018 Pneumococcal Conjugate 13-Valent (PCV13) 019 Shingrix 10/04/2018 Family History Medical History Relation Name Comments Ovarian cancer Mother Cancer Son Relation Name Status Comments Mother Son Social History Tobacco Use Types Packs/Day Years Used Date Smoking Tobacco: Every Day Cigarettes 1 51.6 Started: 1971 Smokeless Tobacco: Never Tobacco Cessation:Ready to Q uit: Not Asked; Counseling Given: No Alcohol Use Standard Drinks/Week Comments No 0 (1 standard drink = 0.6 oz pur e alcohol) PHQ-2 Answer Date Recorded Retired PHQ-9: Brief Depression Severity Measure Score 0 10/06/2021 Abuse Screen Answer Date Recorded Unsafe at Home or Work/School Not on file Feels Threatened by Someone? Not on file 10/2022 Does Anyone Keep You from Co ntacting Others or Doint Things Outside the Home? Not on file 11/28/2022 Physical Sign of Abuse Present Not on file 1 Housing Stability Answer Date Recorded Current Living Arrangements Not on file 10/2022 Potentially Unsafe Housing Conditions Not on osmar e 11/28/2022 Family and Community Support Answer Shadi e Recorded Help with Day-to-Day Activities Not on file 11/28/2022 Lonely or Isolated Not on file 11/28/2022 Employment Answer Date Recorded Do you want help finding or keeping work or a enoc b? Not on file 11/28/2022 Disabilities Answer Date Recorded Concentrating, Remembering, or Making Decisions Difficulty Not on file 11/28/2022 Doing Errands Independently Difficulty Not on fi le 11/28/2022 Education Answer Date Recorded Help with school or training? Not on file Preferred Language Not on file 11/28/2022 Comments No Sex and Gender Information Value Date Recorded Sex Assigned at Not on file Legal Sex Female 10:55 AM EDT Gender Identity Not on file Sexual Orientation Not on file Last Filed Vital Signs Vital Sign Reading Time Taken Comments Blood Pressure 109/59 09/07/2022 1:50 PM EDT Pulse 84 09/07/2022 1:50 PM EDT Temperature 36.9 C (98.4 F) 09/07/2022 1:50 PM EDT Respiratory Rate 16 09/07/2022 1:50 PM EDT Oxygen Saturation 98% 04/08/2022 10: 21 AM EST Inhaled Oxygen Concentration - - Weight 70.2 kg (154 lb 12.8 oz) 023 10:21 AM EST Height 162.6 cm (5' 4.02 ) 04/08/2022 1 0:21 AM EST Body Mass Index 26.56 04/08/2022 10:21 AM EST Plan of Treatment Health Maintenance Due Date Last Done Comments DIABETIC EYE EXAM 1967 DIABETIC FOOT EXAM 1967 URINE MICROALBUMIN-CREATININ E RATIO (uACR) 1967 TDAP/TD VACCINES (1 - Tdap) 02/15/1976 COLOGUARD 2002 COLON CANCER SCREENING 5 YEA R SIGMOIDOSCOPY 2002 CT COLONOGRAPHY 2002 FECAL OCCULT BLOOD TEST 2002 FIT Testing (1 year) 2002 ANNUAL WELLNESS VISIT 12/29/2015 HEPATITIS C SCREENING 12/29/2015 LIPID PANEL 03/27/2018 03/27/2017 ZOSTER VACCINE (2 of 2) 11/29/2018 10/04/2018 MAMMOGRAM 03/10/2019 03/10/2017, 03/10/2017 DXA SCAN 08/17/2020 08/17/2018 HEMOGLOBIN A1C 01/05/2023 07/05/2022, 06/20, 03/27/2017 COVID-19 Vaccine (2023-2 5 season) 2023 10/04/2020, 05/28/2020 INFLUENZA VACCINE 11/20/2024 12/20/2022, , 11/08/2017, Additional history exists COLONOSCOPY 04/06/2027 04/06/2017 COLORECTAL CANCER SCREENING 04/06/2027 Pneumococcal Vaccine 50+ Completed 01/03/2022, 09/20 Goals Goal Patient Goal Type Associated Problems Recent Progress Patient-Stated? Author Symptom management General No Nelly De La Cruz, PharmD Additional Health Concerns Infection Onset Date Last Indicated ESBL E coli 10/12/2021 10/12/2021 Insurance MEDICAID [place] HUMANA [facility] Care Teams Skin Care Instructor Relationship Specialty Start Date End Date Torie Duong, JEANNIE [address] [place] [address] PCP - General Nurse Practitioner 12/29/23
--- OUTSIDE RECORDS SUMMARY | 2024-09-25 09:52 | XMS_ITS | Encounter Summary ---
Author Organization [employer] ([place], [place], [place], [place]) Address [address] [place] [address] Care Team Providers Care Cable Swager Name Role Phone Jayden Rowan MD Primary Care Provider [phone] Encounter Details Date Type Department Care Team (Late st Contact Info) Description 06/19/2019 Transcribed Document [facility] [place] [address] [place] [address] ProviderJason MD [address] [place] [address] Social History Tobacco Use Types [...] Jason ProviderMD - 06/19/2019 8:59 PM CDT [place] Suicide Severity Rating Scale (C-SSRS) Entered On: 06/19/2019 21:09 EDT Performed On: 06/19/2019 21:09 EDT by Dottie Baltazar RN [place] Suicide Severity Rating Scale (C-SSRS) CSSRS Past [...] on filedocumented in this encounter Care Teams Cable Swager Relationship Specialty Start Date End Date Jayden Rowan MD [address] [place] [phone] PCP - General General Internal Medicine 07/05/22 documented as of this encounter
--- OUTSIDE RECORDS SUMMARY | 2024-09-25 09:52 | XMS_ITS | Referral Summary ---
Author Organization [employer] ([place], [place], [place], [place]) Address [address] [place] [address] Care Team Providers Care Smutter Name Role Phone Jayden Rowan MD Primary Care Provider [phone] Allergies Active Allergy Reactions Criticality Noted Date [...] Jean Carlos rded Speak language other than Swazi at home Not on file 03/10/2023 Want [...] A1C 6.7 % 07/05/2022 9:44 PM EDT [facility] Comment: Hemoglobin A1C levels are related to mean glucose during the preceding 2-3 months. Less than 7% demonstrates glycemic control in diabetic patients. Hemoglobin AlC % Suggested Diagnosis > or = 6.5 Diabetic 5.7 - 6.4 Prediabetic <5.7 Non-diabetic eAVG Glucose 145.59 mg/dL 07/05/2022 9:44 PM EDT [facility] Blood Venipuncture / Unknown 07/05/2022 12:26 PM EDT 07/05/2022 12:26 PM EDT us Fady Bates MD LAB BLOOD ORDERABLES Final Res ult [facility] [address] [phone] from Last 3 Months or Most Recently Relevant to Health Maintenance Insurance [id number] (Home) [facility] [id number] MEDICAID [facility] HUMANA COMMERCIAL MEDICAID [facility] Advance Directives For more information, please contact: [phone] Documents on File Type Date Recorded Patient Drawer In Plain Loom Expl anation Advance Directives and Livin g Will 07/07/2022 7:11 AM * Full Code (Latest Code Status on File) Date Activated Date Inactivated Comments 07/07/2022 4:06 PM 07/08/2022 4:14 PM Care Teams Smutter Relationship Specialty Start Date End Date Jayden Rowan MD [address] [place] [phone] PCP - General General Internal Medicine 07/05/22
--- OUTSIDE RECORDS SUMMARY | 2024-09-25 09:52 | XMS_ITS | Encounter Summary ---
Author Organization [employer] ([place], [place], [place], [place]) Address [address] [place] [address] Care Team Providers Care Life Insurance Salesperson Name Role Phone Leanna Rivera MD Primary Care Provider [phone] Encounter Details Date Type Department Care Team (Late st Contact Info) Description 05/23/2018 Transcribed Document [facility] [place] [address] [place] [address] ProviderJason MD [address] [place] [address] Social History Tobacco Use Types [...] Zendejas MD - 05/23/2018 6:05 PM CDT [facility] [address] [place] [phone] Patient Information Name: CECILE RAMIREZ Age: 63 Years Date of : 1955 Arrival Time: 05/23/2018 17:19:00 Diagnosis Migraine Primary Care Physician: LEANNA RIVERA MD-INT Provider Information Primary Provider: TONEY JORGENSEN MD Secondary Provider: JAMES CECILE DARREN has been given the following list of patient education materials, prescriptions and follow-up instructions: Follow-up Instructions: With: Address: When: LEANNA RIVERA [address] [place] [address], [address] [place] [id number] Business (1) Within 2 to 3 days [...] these instructions at home: Medicines ??? Take sgdp-iwu-vcnizpd and prescription medicines only as told by your health care provider. ??? Do notdrive or use heavy machinery while taking prescription pain medicine. ??? To prevent or treat constipation while you are taking prescription pain medicine, your health care provider may recommend that you: ? Drink enough fluid to keep your urine clear or pale yellow. ? Take shly-ist-xbkkufx or prescription medicines. ? Eat foods that [...] 02/06/2006 Document Revised: 08/26/2016 Document Reviewed: 07/25/2016 [employer] Interactive Patient Education ? 2016 [employer]. Allergies: acetaminophen-HYDROcodone; Maxalt; Imitrex; Zofran; HYDROmorphone; morphine; [...] verify that CECILE RAMIREZ was seen at [facility] Emergency Department on ,05/23/2018 18:05:18. [...] along the way. As a healthcare provider, [facility] recommends that you stop smoking. Assistance with quitting is available by contacting 7-081-CIGS-NOW. This is a free resource providing counseling, [...] Electronic Communications Privacy Act 18 U.S.C. ???Sections 7128-7675,?? and contain information intended for the specified [...] Be sure to sign up for the [facility] patient portal, which gives you 12/09 access to your medical information ??? including these discharge instructions ??? using your computer, smartphone, or tablet. Just go to [employer] to get started. Questions? Call . Acknowledgment [...] Physician: Electronically signed by Jolie Piedra Conversion Clinical Quality Assurance Specialist Cerner at 06/09/2022 3:26 PM CDT documented in this encounter Plan of Treatment Not on file documented as of this encounter Visit Diagnoses Not on filedocumented in this encounter Care Teams Life Insurance Salesperson Relationship Specialty Start Date End Date Leanna Rivera MD [address] [place] [phone] PCP - General General Internal Medicine 07/05/22 documented as of this encounter
--- OUTSIDE RECORDS SUMMARY | 2024-09-25 09:52 | XMS_ITS | Encounter Summary ---
Author Organization [employer] ([place], [place], [place], [place]) Address [address] [place] [address] Care Team Providers Care Guest Services Lead Name Role Phone Jayden Rowan MD Primary Care Provider [phone] Encounter Details Date Type Department Care Team (Late st Contact Info) Description 08/11/2020 Transcribed Document [facility] [place] [address] [place] [address] ProviderJason MD [address] [place], [place] [id number] Social History Tobacco Use Types Packs/Day Years [...] On: 08/11/2020 14:02 EDT by RACHAEL QUINTANA, grounds maintenance worker Process Patient Disposition : Discharge Personal Belongings [...] 08/11/2020 14:13 EDT Electronically signed by [facility] Conversion Pharmaceutical Physician Cerner at 06/09/2022 3:31 PM CDT documented in this encounter Plan of Treatment Not on file documented as of this encounter Visit Diagnoses Not on filedocumented in this encounter Care Teams Guest Services Lead Relationship Specialty Start Date End Date Jayden Rowan MD [address] [place] [phone] PCP - General General Internal Medicine 07/05/22 documented as of this encounter
--- OUTSIDE RECORDS SUMMARY | 2024-09-25 09:52 | XMS_ITS | Encounter Summary ---
Author Organization [employer] ([place], [place], [place], [place]) Address [address] [place] [address] Care Team Providers Care Dietitian Name Role Phone Jayden Rowan MD Primary Care Provider Encounter Details Date Type Department Care Team (Late st Contact Info) Description 02/06/2020 Transcribed Document [facility] Medicine [address] [place] [address] ProviderJason MD [address] [place] [address] Social History Tobacco Use Types [...] Jason Zendejas MD - 02/06/2020 2:02 PM JUNIOR FINANCIAL ANALYST ED Discharge Entered On: 02/06/2020 14:03 EST Performed On: 02/06/2020 14:02 EST by Tori Rolon artist woodblock Process Patient Disposition : Discharge Personal Belongings [...] - 02/06/2020 14:02 EST Electronically signed by [facility] Conversion Soap Grinder Cerner at 06/09/2022 3:27 PM CDT documented in this encounter Plan of Treatment Not on file documented as of this encounter Visit Diagnoses Not on filedocumented in this encounter Care Teams Dietitian Relationship Specialty Start Date End Date Jayden Rowan MD [address] [place] [phone] PCP - General General Internal Medicine 07/05/22 documented as of this encounter
--- OUTSIDE RECORDS SUMMARY | 2024-09-25 09:52 | XMS_ITS | Encounter Summary ---
Author Organization [employer] ([place], [place], [place], [place]) Address [address] [place] [address] Care Team Providers Care Supervisor Tank Cleaning Name Role Phone Leanna Rivera MD Primary Care Provider [phone] Encounter Details Date Type Department Care Team (Late st Contact Info) Description 09/05/2018 Transcribed Document [facility] Radiology [address] [place] [id number] Gali Garrett MD [facility] Dept [place] [address] Social History Tobacco Use Types Packs/Day Years [...] EDT Height Source Stated Height Entry Format Carver Height/Length, LATVIAN (ft) 5 ft Height/Length LATVIAN 4 Inch CLINICALHEIGHT 162.56 cm [place] Body Weight 54.3 kg Weight Source, ED Critical estimated dosing weight Weight Entry Format Carver Weight Spanish lb 162 lb CLINICALWEIGHT 73.64 kg Body [...] filedocumented in this encounter Care Teams Supervisor Tank Cleaning Relationship Specialty Start Date End Date Leanna Rivera MD [address] [place] [phone] PCP - General General Internal Medicine 07/05/22 documented as of this encounter
--- OUTSIDE RECORDS SUMMARY | 2024-09-25 09:52 | XMS_ITS | Encounter Summary ---
Author Organization [employer] ([place], [place], [place], [place]) Address [address] [place] [address] Care Team Providers Care Java Developer Name Role Phone Jayden Rowan MD Primary Care Provider [phone] Encounter Details Date Type Department Care Team (Late st Contact Info) Description 04/08/2018 Transcribed Document [facility] Family Medicine [address] [place] [address] ProviderJason MD [address] [place], [place] [id number] Social History Tobacco Use Types Packs/Day Years Used Date Smoking Tobacco: Never Assessed Comments Unknown Sex and Gender Information Value Date Recorded Sex Assigned at Not on file Legal Sex Female 3:15 PM CDT Gender Identity Not on file Sexual Orientation Not on file documented as of this encounter Miscellaneous Notes * Cerner Conversion Note - Jason Zendejas MD - 04/08/2018 3:24 PM CAR REFINISHER Patient: CECILE RAMIREZ Age: 63 years Sex: [...] route. There was no reported trauma. Our Technical Illustrations Map Inker has spoken with her [id number]. The patient has reportedly been stating that [...] Fall Risk Assessment: ED Clinical Reconciliation: ED military source operations officer: Normal Saline Flush: 10 mL, IV Push, [...] % 29.4 % Lymph # 2.57 x10(3)/uL Ashe % 6.7 % Ashe # 0.59 K/uL Eos % 3.3 % Eos # 0.29 x10(3)/uL Baso % 0.6 % Baso # 0.05 x10(3)/uL Slide Review No IG# 0.04 x10(3)/uL IG% 0.50 % PT 10.0 Second(s) INR 0.9 Urine Type U CleanCatch Urine Color Yellow Urine Appearance Clear Urine Specific [place] 1.007 Urine pH Dipstick 6.5 Urine Leukocyte [...] Radiology results: Radiology Results (Last 48 hours) [id number] -- 04/08/2018 15:14 CT Head WO (04/08/2018 [...] Stable. Counseled: Patient, Family. Electronically signed by [facility], [facility] Conversion Director Of Purchasing Cerner at 06/09/2022 3:28 PM CDT documented in this encounter Plan of Treatment Not on file documented as of this encounter Visit Diagnoses Not on filedocumented in this encounter Care Teams Java Developer Relationship Specialty Start Date End Date Jayden Rowan MD [address] [place] [phone] PCP - General General Internal Medicine 07/05/22 documented as of this encounter
--- OUTSIDE RECORDS SUMMARY | 2024-09-25 09:52 | XMS_ITS | Encounter Summary ---
Author Organization [employer] ([place], [place], [place], [place]) Address [address] [place] [address] Care Team Providers Care Nail Expert Name Role Phone Jayden Rowan MD Primary Care Provider [phone] Encounter Details Date Type Department Care Team (Late st Contact Info) Description 06/10/2020 Transcribed Document [facility] [place] [address] [place] [address] ProviderJason MD [address] [place] [address] Social History Tobacco Use Types [...] of the form. Electronically signed by Tadeo [facility] Conversion Learning Consultant Cerner at 06/09/2022 3:29 PM CDT documented in this encounter Plan of Treatment Not on file documented as of this encounter Visit Diagnoses Not on filedocumented in this encounter Care Teams Nail Expert Relationship Specialty Start Date End Date Jayden Rowan MD [address] [place] [phone] PCP - General General Internal Medicine 07/05/22 documented as of this encounter
--- OUTSIDE RECORDS SUMMARY | 2024-09-25 09:52 | XMS_ITS | Encounter Summary ---
Author Organization [employer] ([place], [place], [place], [place]) Address [address] [place] [address] Care Team Providers Care Pre Billing Specialist Name Role Phone Jayden Rowan MD Primary Care Provider [phone] Encounter Details Date Type Department Care Team (Late st Contact Info) Description 02/06/2020 Transcribed Document [facility] [place] [address] [place] [address] ProviderJason MD [address] [place] [address] Social History Tobacco Use Types [...] - Jason ProviderMD - 02/06/2020 1:15 PM WIND UP OPERATOR Broset Violence Assessment Entered On: 02/06/2020 13:24 EST Performed On: 02/06/2020 13:20 EST by RACHAEL QUINTANA, RN Broset Violence Assessment Broset Violence Checklist of Symptoms : None Broset Violence Symptoms Subtotal : 0 Broset Violence Symptoms Indicator : Low risk (0) Broset Interventions : [place] precautions for safety used RACHAEL QUINTANA RN - 02/06/2020 13:20 EST Electronically signed by Tadeo [facility] Conversion Clinical Account Executive Cerner at 06/09/2022 3:30 PM CDT documented in this encounter Plan of Treatment Not on file documented as of this encounter Visit Diagnoses Not on filedocumented in this encounter Care Teams Pre Billing Specialist Relationship Specialty Start Date End Date Jayden Rowan MD [address] [place] [phone] PCP - General General Internal Medicine 07/05/22 documented as of this encounter
--- OUTSIDE RECORDS SUMMARY | 2024-09-25 09:52 | XMS_ITS | Encounter Summary ---
Author Organization [employer] ([place], [place], [place], [place]) Address [address] [place] [address] Care Team Providers Care Cracking And Fanning Machine Operator Name Role Phone Jayden Rowan MD Primary Care Provider [phone] Encounter Details Date Type Department Care Team (Late st Contact Info) Description 06/26/2020 Transcribed Document [facility] [place] Medicine [facility] [place] [address] ProviderJason MD [address] [place], [place] [phone] Social History Tobacco Use Types Packs/Day Years [...] - 06/26/2020 17:12 EDT Electronically signed by [facility] Conversion Boat Garnisher Cerner at 06/09/2022 3:27 PM CDT documented in this encounter Plan of Treatment Not on file documented as of this encounter Visit Diagnoses Not on filedocumented in this encounter Care Teams Cracking And Fanning Machine Operator Relationship Specialty Start Date End Date Jayden Rowan MD [address] [place] [phone] PCP - General General Internal Medicine 07/05/22 documented as of this encounter
--- OUTSIDE RECORDS SUMMARY | 2024-09-25 09:52 | XMS_ITS | Encounter Summary ---
Author Organization [employer] ([place], [place], [place], [place]) Address [address] [place] [address] Care Team Providers Care Rn Embedded Name Role Phone Jayden Rowan MD Primary Care Provider Encounter Details Date Type Department Care Team (Late st Contact Info) Description 06/26/2020 Transcribed Document [facility] [place] Family Medicine [address] [place] [address] ProviderJason MD [address] [place] [address] Social History Tobacco Use Types [...] Jason ProviderMD - 06/26/2020 3:26 PM CDT Ryan Suicide Severity Rating Scale (C-SSRS) Entered On: 06/26/2020 16:32 EDT Performed On: 06/26/2020 16:31 EDT by Tori Rolon RN Ryan Suicide Severity Rating Scale (C-SSRS) CSSRS Past Month Wish to be : No CSSRS Past Month Suicidal Thoughts : No CSSRS Lifetime Suicide Behavior : No Suicide Severity Rating Score : 0 Suicide Severity Rating : No Additional Care Required at this time Tori Rolon RN - 06/26/2020 16:31 EDT Electronically signed by Hollis Piedra Conversion Assistant Branch Operations Manager Cerner at 06/09/2022 3:27 PM CDT documented in this encounter Plan of Treatment Not on file documented as of this encounter Visit Diagnoses Not on filedocumented in this encounter Care Teams Rn Embedded Relationship Specialty Start Date End Date Jayden Rowan MD [address] [place] [phone] PCP - General General Internal Medicine 07/05/22 documented as of this encounter
--- OUTSIDE RECORDS SUMMARY | 2024-09-25 09:52 | XMS_ITS | Encounter Summary ---
Author Organization [employer] ([place], [place], [place], [place]) Address [address] [place] [address] Care Team Providers Care Fly Worker Name Role Phone Jayden Rowan MD Primary Care Provider [phone] Encounter Details Date Type Department Care Team (Late st Contact Info) Description 06/19/2019 Transcribed Document [facility] [place] Medicine [address] [place] [address] ProviderJason MD [address] [place] [address] Social History Tobacco Use Types [...] On: 06/19/2019 21:03 EDT by Dottie Baltazar TRANSITION MGR Triage Across the Room Chief Complaint : c/o headache and vomiting x 4 days, hx of same Triage Date/Time : 06/19/2019 21:03 EDT Dottie Baltazar RN - 06/19/2019 21:03 EDT DCP GENERIC CODE Tracking Acuity : 3 - Urgent Tracking Group : [facility] ED Dottie Mistry RN - 06/19/2019 [...] Type: Allergy ; Updated By: Tenisha Curry, Byo; Reviewed Date: 06/19/2019 21:06 EDT Diagnosis Control ED (As Of: 06/19/2019 21:08:56 EDT) Problems(Active) Anxiety (SNOMED CT :48702538 ) Name of Problem: Anxiety ; Recorder: BOB PEARCE RN; Confirmation: Confirmed ; Classification: Medical ; Code: [id number] ; Contributor System: PowerChart ; Last Updated: 08/01/2013 19:25 EDT ; Life Cycle Date: 05/11/2013 ; Life Cycle Status: Active ; Vocabulary: SNOMED CT Appendectomy (SNOMED CT :967955497 ) Name of Problem: Appendectomy ; Recorder: BOB PEARCE RN; Confirmation: Confirmed ; Classification: Medical ; Code: 920039773 ; Contributor System: PowerChart ; Last Updated: 08/06/2013 10:55 EDT ; Life Cycle Date: 05/11/2013 ; Life Cycle Status: Active ; Vocabulary: SNOMED CT Bladder (SNOMED CT :418998485 ) Name of Problem: Bladder ; Recorder: BOB PEARCE RN; Confirmation: Confirmed ; Classification: Medical ; Code: 927314635 ; Contributor System: PowerChart ; Last Updated: 08/08/2013 13:51 EDT ; Life Cycle Date: 05/11/2013 ; Life Cycle Status: Active ; Vocabulary: SNOMED CT ; Comments: 05/11/2013 16:28 - BOB PEARCE RN bladder sling Cholecystectomy (SNOMED CT :15626664 ) Name of Problem: Cholecystectomy ; Recorder: OBB PEARCE RN; Confirmation: Confirmed ; Classification: Medical ; Code: 81229588 ; Contributor System: MemeoirsChart ; Last Updated: 08/06/2013 10:53 EDT ; Life Cycle Date: 05/11/2013 ; Life Cycle Status: Active ; Vocabulary: SNOMED CT COPD (chronic obstructive pulmonary disease) (SNOMED CT :58666901 ) Name of Problem: COPD (chronic obstructive pulmonary disease) ; Recorder: BONNIE FUCHS RN; Confirmation: Confirmed ; Classification: Medical ; Code: 06698053 ; Contributor System: PowerChart ; Last Updated: 06/30/2014 10:41 EDT ; Life Cycle Date: 06/30/2014 ; Life Cycle Status: Active ; Vocabulary: SNOMED CT Depression (SNOMED CT :263334193 ) Name of Problem: Depression ; Recorder: BOB PEARCE RN; Confirmation: Confirmed ; Classification: Medical ; Code: 514816389 ; Contributor System: PowerChart ; Last Updated: 08/01/2013 19:25 EDT ; Life Cycle Date: 05/11/2013 ; Life Cycle Status: Active ; Vocabulary: SNOMED CT Diabetes mellitus (SNOMED CT :707329564 ) Name of Problem: Diabetes mellitus ; Recorder: Arabella Pineda RN; Confirmation: Confirmed ; Classification: Patient Stated ; Code: 441914750 ; Contributor System: MemeoirsChart ; Last Updated: 07/09/2017 2:14 EDT ; Life Cycle Date: 07/09/2017 ; Life Cycle Status: Active ; Vocabulary: SNOMED CT GERD (gastroesophageal reflux disease) (SNOMED CT :850591958 ) Name of Problem: GERD (gastroesophageal reflux disease) ; Recorder: BONNIE FUCHS RN; Confirmation: Confirmed ; Classification: Medical ; Code: 932769864 ; Contributor System: PowerChart ; Last Updated: 06/30/2014 10:41 EDT ; Life Cycle Date: 06/30/2014 ; Life Cycle Status: Active ; Vocabulary: SNOMED CT High cholesterol (SNOMED CT :[id number] ) Name of Problem: High cholesterol ; Recorder: BOB PEARCE RN; Confirmation: Confirmed ; Classification: Medical ; Code: [id number] ; Contributor System: MemeoirsChart ; Last Updated: 08/01/2013 19:25 EDT ; Life Cycle Date: 05/11/2013 ; Life Cycle Status: Active ; Vocabulary: SNOMED CT Hysterectomy (SNOMED CT :128280718 ) Name of Problem: Hysterectomy ; Recorder: BOB PEARCE RN; Confirmation: Confirmed ; Classification: Medical ; Code: 400045155 ; Contributor System: PowerChart ; Last Updated: 08/06/2013 10:54 EDT ; Life Cycle Date: 05/11/2013 ; Life Cycle Status: Active ; Vocabulary: SNOMED CT Migraine (SNOMED CT :13715591 ) Name of Problem: Migraine ; Recorder: BOB PEARCE RN; Confirmation: Confirmed ; Classification: Medical ; Code: 71904830 ; Contributor System: PowerChart ; Last Updated: 08/01/2013 19:25 EDT ; Life Cycle Date: 05/11/2013 ; Life Cycle Status: Active ; Vocabulary: SNOMED CT Diagnoses(Active) Headache Date: 06/19/2019 ; Diagnosis Type: Reason For Visit ; Confirmation: Complaint of ; Clinical Dx: Headache ; Classification: Medical ; Clinical Service: Emergency medicine ; Code: PNED ; Probability: 0 ; Diagnosis Code: [id number] ED Height and Weight Height Source : Stated Height Entry Format : [place] Height, Feet : 5 ft(Converted to: 152 cm, 60 Inch) Height, Inches : 4 Inch(Converted to: 0 ft 4 Inch, 10.16 cm) Clinical Height : 162.56 cm Weight Source, ED : Critical estimated dosing weight Weight Entry Format : [place] Weight, Pounds : 172 lb Clinical Dosing Weight : 78.18 kg Body Surface Area (BSA) : 1.84 m2 Body Mass Index : 29.6 kg/m2 ([place]) [place] Body Weight (IBW) : 54.3 kg Dottie [...] form. Electronically signed by Jolie Piedra Conversion Quality Assurance Monitor Chassis Cerner at 06/09/2022 3:26 PM CDT documented in this encounter Plan of Treatment Not on file documented as of this encounter Visit Diagnoses Not on filedocumented in this encounter Care Teams Fly Worker Relationship Specialty Start Date End Date Jayden Rowan MD [address] [place] [phone] PCP - General General Internal Medicine 07/05/22 documented as of this encounter
--- OUTSIDE RECORDS SUMMARY | 2024-09-25 09:52 | XMS_ITS | Encounter Summary ---
Author Organization [employer] ([place], [place], [place], [place]) Address [address] [place] [address] Care Team Providers Care Review Engineer Name Role Phone Jayden Rowan MD Primary Care Provider [phone] Encounter Details Date Type Department Care Team (Late st Contact Info) Description 08/11/2020 Transcribed Document [facility] [place] [address] [place] [address] ProviderJason MD [address] [place] [address] Social History Tobacco Use Types [...] on filedocumented in this encounter Care Teams Review Engineer Relationship Specialty Start Date End Date Jayden Rowan MD [address] [place] [phone] PCP - General General Internal Medicine 07/05/22 documented as of this encounter
--- OUTSIDE RECORDS SUMMARY | 2024-09-25 09:52 | XMS_ITS | Encounter Summary ---
Author Organization [employer] ([place], [place], [place], [place]) Address [address] [place] [address] Care Team Providers Care Poker Prop Player Name Role Phone Jayden Rowan MD Primary Care Provider [phone] Encounter Details Date Type Department Care Team (Late st Contact Info) Description 06/20/[address] 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 C/O shoulder and wrist pain Chung Wasserman, Director Emergency Services - 06/20/2018 5:28 EDT DCP GENERIC CODE Tracking Acuity : 4 - Non - Urgent Tracking Group : [facility] ED Ben HillChung Wilder, Director Emergency Services - 06/20/2018 5:28 [...] 06/20/2018 05:32:56 EDT) Problems(Active) Anxiety (SNOMED CT :21915830 ) Name of Problem: Anxiety ; Recorder: BOB PEARCE RN; Confirmation: Confirmed ; Classification: Medical ; Code: 76627546 ; Contributor System: PowerChart ; Last Updated: 08/01/2013 19:25 EDT ; Life Cycle Date: 05/11/2013 ; Life Cycle Status: Active ; Vocabulary: SNOMED CT Appendectomy (SNOMED CT :997742218 ) Name of Problem: Appendectomy ; Recorder: BOB PEARCE RN; Confirmation: Confirmed ; Classification: Medical ; Code: 859754958 ; Contributor System: PowerChart ; Last Updated: 08/06/2013 10:55 EDT ; Life Cycle Date: 05/11/2013 ; Life Cycle Status: Active ; Vocabulary: SNOMED CT Bladder (SNOMED CT :816622227 ) Name of Problem: Bladder ; Recorder: BOB PEARCE RN; Confirmation: Confirmed ; Classification: Medical ; Code: 465282384 ; Contributor System: PowerChart ; Last Updated: 08/08/2013 13:51 EDT ; Life Cycle Date: 05/11/2013 ; Life Cycle Status: Active ; Vocabulary: SNOMED CT ; Comments: 05/11/2013 16:28 - BOB PEARCE RN bladder sling Cholecystectomy (SNOMED CT :16842310 ) Name of Problem: Cholecystectomy ; Recorder: BOB PEARCE RN; Confirmation: Confirmed ; Classification: Medical ; Code: 00579327 ; Contributor System: PowerChart ; Last Updated: 08/06/2013 10:53 EDT ; Life Cycle Date: 05/11/2013 ; Life Cycle Status: Active ; Vocabulary: SNOMED CT COPD (chronic obstructive pulmonary disease) (SNOMED CT :73850830 ) Name of Problem: COPD (chronic obstructive pulmonary disease) ; Recorder: BONNIE FUCHS RN; Confirmation: Confirmed ; Classification: Medical ; Code: 98198456 ; Contributor System: MigoaChart ; Last Updated: 06/30/2014 10:41 EDT ; Life Cycle Date: 06/30/2014 ; Life Cycle Status: Active ; Vocabulary: SNOMED CT Depression (SNOMED CT :976885060 ) Name of Problem: Depression ; Recorder: BOB PEARCE RN; Confirmation: Confirmed ; Classification: Medical ; Code: 149323967 ; Contributor System: PowerChart ; Last Updated: 08/01/2013 19:25 EDT ; Life Cycle Date: 05/11/2013 ; Life Cycle Status: Active ; Vocabulary: SNOMED CT Diabetes mellitus (SNOMED CT :271574816 ) Name of Problem: Diabetes mellitus ; Recorder: Arabella Pineda RN; Confirmation: Confirmed ; Classification: Patient Stated ; Code: 436906924 ; Contributor System: PowerChart ; Last Updated: 07/09/2017 2:14 EDT ; Life Cycle Date: 07/09/2017 ; Life Cycle Status: Active ; Vocabulary: SNOMED CT GERD (gastroesophageal reflux disease) (SNOMED CT :506604918 ) Name of Problem: GERD (gastroesophageal reflux disease) ; Recorder: BONNIE FUCHS RN; Confirmation: Confirmed ; Classification: Medical ; Code: 293294195 ; Contributor System: PowerChart ; Last Updated: 06/30/2014 10:41 EDT ; Life Cycle Date: 06/30/2014 ; Life Cycle Status: Active ; Vocabulary: SNOMED CT High cholesterol (SNOMED CT :[id number] ) Name of Problem: High cholesterol ; Recorder: BOB PEARCE RN; Confirmation: Confirmed ; Classification: Medical ; Code: [id number] ; Contributor System: [employer] ; Last Updated: 08/01/2013 19:25 EDT ; Life Cycle Date: 05/11/2013 ; Life Cycle Status: Active ; Vocabulary: SNOMED CT Hysterectomy (SNOMED CT :822307363 ) Name of Problem: Hysterectomy ; Recorder: BOB PEARCE RN; Confirmation: Confirmed ; Classification: Medical ; Code: 816480592 ; Contributor System: [employer] ; Last Updated: 08/06/2013 10:54 EDT ; Life Cycle Date: 05/11/2013 ; Life Cycle Status: Active ; Vocabulary: SNOMED CT Migraine (SNOMED CT :79259181 ) Name of Problem: Migraine ; Recorder: BOB PEARCE RN; Confirmation: Confirmed ; Classification: Medical ; Code: 49676504 ; Contributor System: PowerChart ; Last Updated: [...] PNED ; Probability: 0 ; Diagnosis Code: [id number] ED Height and Weight Height Source : Estimated Height Entry Format : [place] Height, Feet : 5 ft(Converted to: 152 cm, 60 Inch) Height, Inches : 6 Inch(Converted to: 0 ft 6 Inch, 15.24 cm) Clinical Height : 167.64 cm Weight Source, ED : Stated [place] Body Weight (IBW) : 58.88 kg Chung Wasserman, Director Emergency Services - 06/20/2018 5:28 EDT Estimated Weight Type of Weight Measurement Est : [place] Weight, est lb : 150 lb(Converted to: 68 kg) Weight, est oz : 0 oz Estimated Clinical Dosing Weight : 68.18 kg Chung Wasserman, Director Emergency Services - 06/20/2018 5:28 EDT Electronically signed by Tadeo, [facility] Conversion Electric Motor Winders Assembler Cerner at 06/09/2022 3:27 PM CDT documented in this encounter Plan of Treatment Not on file documented as of this encounter Visit Diagnoses Not on filedocumented in this encounter Care Teams Poker Prop Player Relationship Specialty Start Date End Date Jayden Rowan MD [address] [place] [phone] PCP - General General Internal Medicine 07/05/22 documented as of this encounter
--- OUTSIDE RECORDS SUMMARY | 2024-09-25 09:52 | XMS_ITS | Patient Health Record ---
Author Organization [facility] Address [address] [place] [address] Care Team Providers Care Esthetician Makeup Artist Name Role Phone Enoc Crane Primary Care Provider ENOC Crane APRN Unavailable Unavailable Manpreet Lemus Unavailable [phone] Migration, Provider Unavailable Unavailable Allergies Allergen (clinical drug ingredient) Drug/Non Drug Allergy documented on EMR Reaction Allergy Type Onset Date Status PERCODAN (uncoded) hallunications Allergy Active ZOFRAN (uncoded) stomach upset Allergy Active hydromorphone Dilaudid vomiting Drug Allergy Act florecita morphine Morphine vomiting Drug Allergy Active Reason For Referral No Information Medications Medication [...] review and pick correct strength-formulati on from [employer] Limitedan options. If intended option is not shown, [...] review and pick correct strength-formulati on from [employer]an options. If intended option is not shown, [...] W/U Status Risk Notes Problem Mixed hyperlipidemia (391507386) Mixed hyperlipidemia (E78.2) Active confirmed Problem Mixed anxiety and depressive disorder (402329017) Depression with anxiety (F41.8) Active confirmed Problem Acute exacerbation of chronic obstructive airways disease (021652786) COPD exacerbation (J44.1) Active confirmed Problem Restless legs (18781864) RLS (restless legs syndrome) (G25.81) Active confirmed Problem Type 2 diabetes mellitus (80597060) Type 2 diabetes mellitus (E11.9) Active confirmed Problem Tobacco use (593371769) Tobacco use disorder (F17.200) Active confirmed Problem Status migrainosus (879778158) Migraine with status migrainosus, not intractable, unspecified migraine type (G43.901) Active confirmed Encounters Encounter Location Date Provider Diagnosis [facility] [address] [place], [place] [address] 05/25/2024 Provider Migration [facility] [address] [place] [address] 10/09/2023 [facility] [address] [place], [place] [address] 10/20/2023 Enoc Crane Plan Of Treatment Pending Test Test Name [...] End Date [employer] DUAL [address] [address] [place] [phone] [id number] Cecile Escobedo Self - patient is the insured Medications Administered Medication Instructions Date of Administration Dosage Notes Dexamethasone 4mg Injection 12/20/2022 4 mL Dexamethasone 4mg Injection 05/15/2023 4 mg Dexamethasone 4mg Injection 08/21/2023 4 mg Medical (General) History Medical History History ICD Code COPD Diabetes Hyperlipidemia Depression/Anxiety RLS Migraine B12 def Surgical History Surgery Date(Month/Year) Appendectomy 1968 Total hysterectomy 2000 Cholecysyectomy 2003 Hernia repair 2001 bladder retuck Hospitalization History Reason Date(Month/Year) mild stroke 2014 all above surgeries Bacterial infection 2016
--- OUTSIDE RECORDS SUMMARY | 2024-09-25 09:52 | XMS_ITS | Encounter Summary ---
Author Organization [employer] ([place], [place], [place], [place]) Address [address] [place] [address] Care Team Providers Care Internet Marketing Strategist Name Role Phone Leanna Rivera MD Primary Care Provider [phone] Encounter Details Date Type Department Care Team (Late st Contact Info) Description 04/30/2019 Transcribed Document [facility] [place] [address] [place] [address] ProviderJason MD [address] [place] [address] Social History Tobacco Use Types [...] 2:40 PM CDT Bashir Pina [address] [place] [address] CECILE RAMIREZIL :1955 Visit Time:04/30/2019 [...] When Within 2 to 3 days Where: [address] [place] [address] [address] [id number] [facility] (1) Allergies HYDROmorphone Imitrex Maxalt Zofran [...] these instructions at home: Medicines ??? Take tjcj-tcz-kzzjgye and prescription medicines only as told by your health care provider. ??? Do not drive or use heavy machinery while taking prescription pain medicine. ??? To prevent or treat constipation while you are taking prescription pain medicine, your health care provider may recommend that you: ? Drink enough fluid to keep your urine clear or pale yellow. ? Take yjst-fva-sfyjxgn or prescription medicines. ? Eat foods that [...] 02/06/2006 Document Revised: 08/26/2016 Document Reviewed: 07/25/2016 [employer] Patient Education ?? 2019 [employer] Emergency Awareness and Preventative Care STROKE [...] Suicide Prevention Lifeline: The National Suicide Prevention [facility] is a national network of local crisis [...] was given the opportunity to ask questions. Patient/Glue Spreading Machine Operator Name: Patient/Glue Spreading Machine Operator Signature: Relationship to Patient: Clinician/Hospital Glue Spreading Machine Operator Signature: Please Provide a Telephone Number Where You Can Be Reached: Is it Permissible To Leave a Message? Date: Electronically signed by Interface, [facility] Conversion Belting Cutter Cerner at 06/09/2022 3:28 PM CDT documented in this encounter Plan of Treatment Not on file documented as of this encounter Visit Diagnoses Not on filedocumented in this encounter Care Teams Internet Marketing Strategist Relationship Specialty Start Date End Date Leanna Rivera MD [address] [place] [phone] PCP - General General Internal Medicine 07/05/22 documented as of this encounter
--- OUTSIDE RECORDS SUMMARY | 2024-09-25 09:52 | XMS_ITS | Encounter Summary ---
Author Organization [employer] ([place], [place], [place], [place]) Address [address] [place] [address] Care Team Providers Care Commodity Specialist Name Role Phone Leanna Rivera MD Primary Care Provider [phone] Encounter Details Date Type Department Care Team (Late st Contact Info) Description 10/02/[address] [facility] [place] Family Medicine [address] [place] [address] ProviderJason MD [address] [place] [address] Social History Tobacco Use Types [...] Zendejas MD - 10/02/2020 12:11 PM CDT [facility] [[email or web address] [address] [place] [address] CECILE RAMIREZIL :1955 Visit Time:10/02/2020 [...] Within 2 to 3 days Where: [address] [place] [address] [address] [id number] [facility] (1) Allergies HYDROmorphone Imitrex Maxalt Zofran [...] these instructions at home: Medicines ??? Take gxxa-mck-yaatmpv and prescription medicines only as told by your health care provider. ??? Ask your health care provider if the medicine prescribed to you: ? Requires you to avoid driving or using heavy machinery. ? Can cause constipation. You may need to take these actions to prevent or treat constipation: ? Drink enough fluid to keep your urine pale yellow. ? Take sxdy-vgn-qouzbdd or prescription medicines. ? Eat foods that [...] provider. Document Revised: 05/31/2019 Document Reviewed: 03/21/2019 [employer] Patient Education ?? 2020 [employer]. Emergency Awareness and Preventative Care STROKE is [...] Assistance with quitting is available by contacting 5-203-PGNS-NOW. This is a free resource providing counseling, [...] was given the opportunity to ask questions. Patient/Network Field Engineer Name: Patient/Network Field Engineer Signature: Relationship to Patient: Clinician/Hospital Network Field Engineer Signature: Please Provide a Telephone Number Where You Can Be Reached: Is it Permissible To Leave a Message? Date: documented in this encounter Plan of Treatment Not on file documented as of this encounter Visit Diagnoses Not on filedocumented in this encounter Care Teams Commodity Specialist Relationship Specialty Start Date End Date Leanna Rivera MD [address] [place] [address] [place] [phone] PCP - General General Internal Medicine 07/05/22 documented as of this encounter
--- OUTSIDE RECORDS SUMMARY | 2024-09-25 09:52 | XMS_ITS | Encounter Summary ---
Author Organization [employer] ([place], [place], [place], [place]) Address [address] [place] [address] Care Team Providers Care Supervisor Feed House Name Role Phone Jayden Rowan MD Primary Care Provider [phone] Encounter Details Date Type Department Care Team (Late st Contact Info) Description 03/04/2019 Transcribed Document [facility] [place] [address] ProviderJason MD [address] [place] [address] Social History Tobacco Use Types [...] Jason Zendejas MD - 03/04/2019 1:08 AM PROFESSOR OF BUSINESS ADMINISTRATION ED Discharge Entered On: 03/04/2019 1:09 EST [...] - 03/04/2019 1:08 EST Electronically signed by [facility] Conversion Radiator Cleaner Cerner at 06/09/2022 3:29 PM CDT documented in this encounter Plan of Treatment Not on file documented as of this encounter Visit Diagnoses Not on filedocumented in this encounter Care Teams Supervisor Feed House Relationship Specialty Start Date End Date Jayden Rowan MD [address] [place] [phone] PCP - General General Internal Medicine 07/05/22 documented as of this encounter
--- OUTSIDE RECORDS SUMMARY | 2024-09-25 09:52 | XMS_ITS | Encounter Summary ---
Author Organization [email or web address] ([place], [place], [place], [place]) Address [address] [place] [address] Care Team Providers Care Radio Control Crane Operator Name Role Phone Leanna Rivera MD Primary Care Provider [phone] Encounter Details Date Type Department Care Team (Late st Contact Info) Description 10/19/2021 Transcribed Document [facility] [place] [address] [place] [address] ProviderJason MD [address] [place] [address] Social History Tobacco Use Types [...] Jean Carlos rded Speak language other than Honduran at home Not on file 03/10/2023 Want [...] EDT Height Source Stated Height Entry Format [place] Height/Length, [place]IZ[place] (ft) 5 ft Height/Length [place] 3 Inch CLINICALHEIGHT 160.02 cm Accident Body Weight 52.02 kg Weight Source, ED Critical estimated dosing weight Weight Entry Format [place] Weight [place] lb 136 lb CLINICALWEIGHT 61.82 kg Body [...] on filedocumented in this encounter Care Teams Radio Control Crane Operator Relationship Specialty Start Date End Date Leanna Rivera MD [address] [place] [phone] PCP - General General Internal Medicine 07/05/22 documented as of this encounter
--- OUTSIDE RECORDS SUMMARY | 2024-09-25 09:52 | XMS_ITS | Encounter Summary ---
Author Organization [employer] ([place], [place], [place], [place]) Address [address] [place] [address] Care Team Providers Care Trade Manager Name Role Phone Jayden Rowan MD Primary Care Provider [phone] Encounter Details Date Type Department Care Team (Late st Contact Info) Description 02/06/2020 Transcribed Document [facility] [place] [address] [place] [address] ProviderJason MD [address] [place] [address] Social History Tobacco Use Types [...] - Jason ProviderMD - 02/06/2020 1:15 PM MUSEUM TOUR GUIDE [place] Suicide Severity Rating Scale (C-SSRS) Entered On: 02/06/2020 13:24 EST Performed On: 02/06/2020 13:20 EST by RACHAEL QUINTANA RN [place] Suicide Severity Rating Scale (C-SSRS) CSSRS Past Month Wish to be : No CSSRS Past Month Suicidal Thoughts : No CSSRS Lifetime Suicide Behavior : No Suicide Severity Rating Score : 0 Suicide Severity Rating : No Additional Care Required at this time RACHAEL QUINTANA RN - 02/06/2020 13:20 EST Electronically signed by T[facility]o [facility] Conversion Recreational Resort Manager Cerner at 06/09/2022 3:31 PM CDT documented in this encounter Plan of Treatment Not on file documented as of this encounter Visit Diagnoses Not on filedocumented in this encounter Care Teams Trade Manager Relationship Specialty Start Date End Date Jayden Rowan MD [address] [place] [phone] PCP - General General Internal Medicine 07/05/22 documented as of this encounter
== END 2024-09-25 23:59 | disposition home or self-care (01) ==
LOC: RAD 09:50
PROVIDERS: PCP Nurse Practitioner Family; Visit Provider Nurse Practitioner Family
DX: M54.12 Radiculopathy, cervical region (principal); Z98.1 Arthrodesis status
CPT/HCPCS: 72040

== ENCOUNTER 2024-10-04 07:59 | Day surgery (SDC) | payer MEDICARE, MEDICAID, SELFPAY ==
[2024-10-04 08:15] VITALS: BP 107/63; PULSE 72; RESP 18; O2SAT 96; BMI 24.9
[2024-10-04 08:24] VITALS: BP 101/67; PULSE 95; RESP 18; O2SAT 94; O2SAT 96
[2024-10-04] MEDS: FENTANYL 100MCG/2ML VIAL 100 MCG (08:28)
[2024-10-04] MEDS: LIDOCAINE 1% 30ML PF VIAL 30 ML (08:28)
[2024-10-04 08:30] VITALS: BP 106/66; PULSE 83; RESP 18; O2SAT 96
[2024-10-04 09:00] VITALS: BP 115/62; PULSE 80; RESP 18; O2SAT 96
[2024-10-04 09:30] VITALS: BP 116/62; PULSE 76; RESP 18; O2SAT 96
--- NOTE | 2024-10-04 09:30 | PC.NURSE ---
DR CASH SAW PT IN ROOM. PT STATES 95% PAIN RELIEF. NO S/O NUMBNESS. PT OKD PER MD TO BE DC/D. F/U IN 1 WEEK
--- NOTE | 2024-10-04 10:33 | EXP.HP ---
History of Present Illness *Admission Date: 10/04/24 *Reason for visit:: Intrathecal pain pump trial *History of present illness: This patient is a pleasant 69-year-old white female who we are treating for neck pain with previous cervical fusion and degenerative disc disease of the lumbar spine with lumbar radiculopathy symptoms. She has failed all previous conservative treatments. She is not a surgical candidate. She has had a successful psychological evaluation. She presents for intrathecal pump trial today [facility] Disclaimer: The information contained in this section may have been updated after the patient was seen, as this information can be updated by other users. Medical History E-coli UTI Encounter for hepatitis C screening test for low risk patient Screening for HIV (human immunodeficiency virus) Encounter to establish care Allergic reaction to chemical substance Urticaria Right otitis media Viral respiratory illness Wheezing Migraine headache Closed fracture of right distal radius MDD (major depressive disorder) Mood disorder Sprain of right wrist Episodic migraine Acute UTI Back pain Allergic reaction Chest pain at rest Back pain Chest pain Chest pain Indigestion Atypical chest pain Seizure disorder Tremor Hernia Urinary incontinence, mixed GERD (gastroesophageal reflux disease) Anxiety and depression Type 2 diabetes mellitus COPD (chronic obstructive pulmonary disease) Hyperlipidemia Surgical History History of bladder surgery H/O hernia repair H/O: hysterectomy History of cholecystectomy Hx of appendectomy H/O neck surgery Family History Diabetes Cancer Social History Smoking Status: Current every day smoker alcohol intake: never substance use type: denies use current occupational status: other Travel in the last 8 weeks?: None household members: significant other housing: house marital status: caffeine: Yes Other Medical History Have you received the Flu Vaccine for this season: No Have you received the Pneumonia Vaccine: No Review of Systems Review of Systems Review of systems:: pertinent systems reviewed and negative unless documented below Constitutional Constitutional: Reports system reviewed and no additional complaints, except as documented Eyes Eyes: Reports system reviewed and no additional complaints, except as documented ENT Ears, Nose, Mouth, and Throat: Reports system reviewed and no additional complaints, except as documented *Cardiovascular Cardiovascular: Reports system reviewed and no additional complaints, except as documented *Respiratory Respiratory: Reports system reviewed and no additional complaints, except as documented *Gastrointestinal Gastrointestinal: Reports system reviewed and no additional complaints, except as documented *Genitourinary Genitourinary: Reports system reviewed and no additional complaints, except as documented *Musculoskeletal Musculoskeletal: Reports system reviewed and no additional complaints, except as documented and Reports back pain (Low back pain) Integumentary/Breasts Skin/Breast: Reports system reviewed and no additional complaints, except as documented *Neurologic Neurologic: Reports system reviewed and no additional complaints, except as documented Psychiatric Psychiatric: Reports system reviewed and no additional complaints, except as documented Endocrine Endocrine: Reports system reviewed and no additional complaints, except as documented Hematologic/Lymphatic Hematologic/Lymphatic: Reports system reviewed and no additional complaints, except as documented Allergic/Immunologic Allergic/Immunologic: Reports system reviewed and no additional complaints, except as documented Meds Home Medications and Allergies Home Medications ?Medication ?Instructions ?Recorded ?Confirmed ?Type alcohol swabs (DropSafe Alcohol 1 pad topical DIRECTED 10/30/23 09/24/24 History Prep Pads) blood sugar diagnostic (Accu-Chek #10 ea 10/30/23 09/24/24 History Guide test strips) blood-glucose meter (Accu-Chek #1 ea 10/30/23 09/24/24 History Guide Me Glucose Meter) ipratropium 0.5 mg-albuterol 3 mg 3 ml inhalation Q4-6H PRN 10/30/23 09/24/24 History (2.5 mg base)/3 mL nebulization Breathing Problems soln lancets (Accu-Chek Softclix #100 ea 10/30/23 09/24/24 History Lancets) syringe with needle 3 mL 23 x 1 #1 ea 10/30/23 09/24/24 History (BD Luer-Konrad Syringe) famotidine 20 mg tablet 20 mg PO BID #180 tabs 11/16/23 09/24/24 Rx ropinirole 3 mg tablet 3 mg PO DAILY #90 tabs 12/14/23 09/24/24 Rx atorvastatin 80 mg tablet 80 mg PO DAILY #90 tabs 05/22/24 09/24/24 Rx promethazine 25 mg tablet 25 mg PO Q8HP PRN motion sickness 06/27/24 09/24/24 Rx #90 tabs dulaglutide 3 mg/0.5 mL See Rx Instructions .Route 07/22/24 09/24/24 Rx subcutaneous pen injector .COMPLEX #2 mL (Trulicity) albuterol sulfate 90 mcg/actuation 2 inh inhalation Q4-6H PRN 07/29/24 09/24/24 Rx aerosol inhaler Breathing Problems #8.5 grams azelastine 137 mcg (0.1 %) nasal 2 spray intranasal BID . #30 mL 07/29/24 09/24/24 Rx spray eptinezumab-jjmr 100 mg/mL 100 mg IV [id number] 07/29/24 09/24/24 Rx intravenous solution (Vyepti) fluticasone fur. 200 mcg-umeclid 1 inh inhalation DAILY #60 ea 07/29/24 09/24/24 Rx 62.5 mcg-vilant 25 mcg inhalat.powder (Trelegy Ellipta) meclizine 25 mg tablet 25 mg PO BID PRN motion sickness 07/29/24 09/24/24 Rx #60 tabs ubrogepant 100 mg tablet (Ubrelvy) 100 mg PO DAILY PRN Migraine 07/29/24 09/24/24 Rx Headache #30 tabs fenofibrate nanocrystallized 145 145 mg PO DAILY #30 tabs 07/31/24 09/24/24 Rx mg tablet sertraline 100 mg tablet See Rx Instructions .Route 07/31/24 09/24/24 Rx .COMPLEX #60 tabs sodium,potassium,mag sulfates 17.5 See Rx Instructions PO .COMPLEX 08/05/24 09/24/24 Rx gram-3.13 gram-1.6 gram oral soln #354 mL (Suprep Bowel Prep Kit) buspirone 10 mg tablet 10 mg PO BID #60 tabs 08/21/24 09/24/24 Rx metoclopramide HCl 10 mg tablet 10 mg PO ACHS nausea and vomiting 09/09/24 09/24/24 Rx #120 tabs levocetirizine 5 mg tablet 5 mg PO DAILY #30 tabs 09/20/24 09/20/24 Rx prednisone 20 mg tablet 20 mg PO BID #14 tabs 09/20/24 09/20/24 Rx clonazepam 1 mg tablet 1 mg PO BID #60 tabs 09/23/24 09/24/24 Rx New Prescriptions to Start Prescriptions: Allergies Allergy/AdvReac Type Severity Reaction Status Date / Time acetaminophen (From Lortab) Allergy Intermediate Verified 09/20/24 11:31 hydrocodone (From Lortab) Allergy Intermediate Verified 09/20/24 11:31 codeine AdvReac Severe Verified 09/20/24 11:31 hydromorphone (From Dilaudid) AdvReac Severe Verified 09/20/24 11:31 morphine AdvReac Severe Verified 09/20/24 11:31 oxycodone AdvReac Severe Verified 09/20/24 11:31 topiramate AdvReac Severe Hives Verified 09/20/24 11:31 ondansetron (From Zofran) AdvReac Intermediate Verified 09/20/24 11:31 Exam Data for Last 24 hours Vital signs and Labs for Last 24 Hours: Pulse Resp BP Pulse Ox O2 Del Method 76 18 116/62 96 Room Air 10/04/24 09:30 10/04/24 09:30 10/04/24 09:30 10/04/24 09:30 10/04/24 09:30 I & O for Last 24 hours: Intake & Output 10/01/24 10/02/24 10/03/24 10/04/24 11:59 11:59 11:59 11:59 Weight 145 lb *Routine HEENT Exam Head: Present normocephalic Eye: Present EOMI, PERRL and normal accommodation ENT: Present mucous membranes moist *Routine Neck Exam Neck: Present supple and full ROM *Routine Respiratory Exam Respiratory: Present normal respiratory effort *Routine Cardiovascular Exam Cardiovascular: Present RRR, Normal S1 and Normal S2 *Routine Abdominal Exam Abdominal: Present soft *Routine Rectal Exam Rectal:: deferred *Routine Genitalia Exam Genitalia:: deferred *Routine Extremities Exam Extremities: Present full ROM Routine Back/Spine/Pelvis Exam Back/Spine: Present full ROM *Routine Skin Exam Skin: Present intact *Routine Neurological Exam Neurological: Present alert and oriented X3 Assessment and Plan *Assessment and plan (1) Degenerative disc disease, lumbar: Status: Chronic Qualifiers: Disc-related pain type: discogenic back pain only Qualified Code(s): M51.360 - Other intervertebral disc degeneration, lumbar region with discogenic back pain only Category: Medical Code(s): M51.369 - Other intervertebral disc degeneration, lumbar region without mention of lumbar back pain or lower extremity pain (2) Lumbar spinal stenosis: Status: Acute Qualifiers: Neurogenic claudication status: with neurogenic claudication Qualified Code(s): M48.062 - Spinal stenosis, lumbar region with neurogenic claudication Category: Medical Code(s): M48.061 - Spinal stenosis, lumbar region without neurogenic claudication Plan Intrathecal pump trial
--- NOTE | 2024-10-04 10:37 | EXP.PAIN.PRO ---
Procedure Date: 10/04/24 Time: 10:38 Anesthesiologist:: Suhas Sheehan MD Complications:: None Pre-procedure Diagnosis:: Degenerative disc disease of lumbar spine with lumbar spinal stenosis and lumbar radiculopathy Post-procedure Diagnosis:: Same Indications for Procedure:: This patient is a pleasant 69-year-old white female who we are treating for degenerative disc disease of lumbar spine with lumbar radiculopathy symptoms and lumbar spinal stenosis. She is also had previous cervical spine fusion. She has failed all previous conservative treatments including injections, oral medications, physical therapy and she is not a candidate for surgery. She has had a successful psychological valuation. She presents for intrathecal pump trial today. Procedure Details:: Pain pump trial Informed consent was obtained and the risk and benefits of the procedure was explained to the patient. The patient was taken to the procedure room and placed prone on the procedure table. Patient was prepped and draped in sterile fashion. C-arm fluoroscopy was used to view the lumbar spine. The skin and subcutaneous tissues were anesthetized using lidocaine. I placed a 18-gauge spinal needle into the L4-5 interspace and advanced until clear CSF was obtained. After this intrathecal catheter was inserted and advanced very easily to the L1 vertebral body. The needle was withdrawn. We were able to freely withdraw clear CSF through the catheter. We then injected intrathecal fentanyl single shot bolus of 25 mcg followed by saline and followed by the previous CSF that was withdrawn. The needle and catheter were then removed and a Band-Aid was placed. Patient tolerated the procedure well with no complications. We reevaluated the patient after 30 minutes to 1 hour. She was also reassessed by physical therapy. Plan and Disposition:: Will follow-up with this patient in 1 week to assess efficacy of this trial. If successful then she is allergic to morphine. We have talked about her allergy to Dilaudid it is a hypersensitivity where she does have some nausea and vomiting. We have talked about planning on intrathecal Dilaudid to 1 mg/mL to start at 100 mcg/day with catheter tip at the T8 vertebral body if she does have a successful intrathecal pump trial.
== END 2024-10-04 09:30 | disposition home or self-care (01) ==
LOC: SC.PAINP 08:00
PROVIDERS: PCP Nurse Practitioner Family; Visit Provider Anesthesiology
DX: M51.360 Other intervertebral disc degeneration, lumbar region with discogenic back pain only (principal); M48.062 Spinal stenosis, lumbar region with neurogenic claudication; M54.12 Radiculopathy, cervical region; E11.9 Type 2 diabetes mellitus without complications; R56.9 Unspecified convulsions; K21.9 Gastro-esophageal reflux disease without esophagitis; J44.9 Chronic obstructive pulmonary disease, unspecified; F17.200 Nicotine dependence, unspecified, uncomplicated; Z98.1 Arthrodesis status; Z79.51 Long term (current) use of inhaled steroids; Z79.52 Long term (current) use of systemic steroids; Z79.85 Long-term (current) use of injectable non-insulin antidiabetic drugs; Z79.899 Other long term (current) drug therapy; Z88.5 Allergy status to narcotic agent; Z88.8 Allergy status to other drugs, medicaments and biological substances
CPT/HCPCS: 62323; 99221; J0690; J2003; J3010

== ENCOUNTER 2024-10-10 11:07 | Outpatient (POV) | payer MEDICARE, MEDICAID, SELFPAY ==
--- OUTSIDE RECORDS SUMMARY | 2023-12-28 06:15 | XMS_ITS ---
Author Organization [facility] Address [address] [place] [address] Care [address] Light Servicer Name Role Phone Enoc Crane Primary Care Provider [phone] ENOC Crane APRN Unavailable Unavailable REASON FOR VISIT 3 Month F/U Encounters Encounter Location Date Provider Diagnosis [facility] [address] [place], [place] [address] 12/28/2023 Enoc Crane Plan Of Treatment No Information Progress Notes * RAMIREZ, Alber:1955 (69 yo F)Acc No.[id number]:12/28/2023 Progress Notes Patient: Cecile HUSSEIN Provider: Monie Crane APRN :1955 A ge:68 Y S ex:Female Date:12/28/2023 Address:[address] [id number] Subjective: * Chief Complaints: * 1 . 3 Month F/U. * Medical History: Objective: * Vitals: Assessment: Plan: * Treatment: * * Electronic signature of Phan Crane APRN on 10/10/2024 at 11:10 AM EDT Sign off status: Pending * Provider: Monie Crane APRN Date: 02/26/2023 Generated for Printi ng/Faxing/eTransmitting on: 0 10/10/2024 11:10 AM EDT
--- OUTSIDE RECORDS SUMMARY | 2024-05-25 17:30 | XMS_ITS ---
Author Organization [facility] Address [address] [place] [address] Care Team Providers Care Activities Director Scouting Name Role Phone Enoc Crane Primary Care Provider ENOC Crnae APRN Unavailable Unavailable Migration, Provider Unavailable Unavailable Allergies Allergen (clinical drug ingredient) Drug/Non Drug Allergy documented on EMR Reaction Allergy Type Onset Date Status PERCODAN (uncoded) hallunications Allergy Active ZOFRAN (uncoded) stomach upset Allergy Active hydromorphone Dilaudid vomiting Drug Allergy Act florecita morphine Morphine vomiting Drug Allergy Active REASON FOR VISIT [facility] To [facility] Conversion Encounter Medications Medication SIG (Take, [...] Active Encounters Encounter Location Date Provider Diagnosis [facility] [address] [facility] [address] [place] [address] 05/25/2024 Provider Migration Plan Of Treatment Medication [...] Notes * Rivas RAMIREZB:1955 (69 yo F)Acc No.[id number]:05/25/2024 Patient: Alejandra HUSSEINnda Provider: Pankaj thomson Migration :1955 A ge:69 Y S ex:Female Date:05/25/2024 Address:[address] [place], [place] [address], [id number] Pcp:Enoc Crane Subjective: * Chief Complaints: * 1 . Multum To Medispan Conversion Encounter. * Medical History: * Medications: T peterg Trelegy Ellipta 200 MCG-62.5 MCG-25 MCG/INH POWDER 1 PUFF(S) INHALED ONCE A DAY , Notes to Pharmacist: *Please review and pick correct strength-formulation [facility]. If intended option is not [...] Electronic signature of Prov ider Migration on 10/10/2024 at 11:09 AM EDT Sign off status: Pending * Provider: Pankaj thomson Migration Date: 0 05/25/2024 Generated for Yumiko robison/Margarette/Martha on: 0 10/10/2024 11:09 AM EDT
--- OUTSIDE RECORDS SUMMARY | 2024-10-10 11:10 | XMS_ITS | Referral Summary ---
Author Organization [employer] ([place], [place], [place], [place]) Address [address] [place] [address] Care Team Providers Care Information Security Architect Name Role Phone Jayden Rowan MD Primary Care Provider [phone] Allergies Active Allergy Reactions Criticality Noted Date [...] Jean Carlos rded Speak language other than Kazakh at home Not on file 03/10/2023 Want [...] A1C 6.7 % 07/05/2022 9:44 PM EDT [facility] Comment: Hemoglobin A1C levels are related to mean glucose during the preceding 2-3 months. Less than 7% demonstrates glycemic control in diabetic patients. Hemoglobin AlC % Suggested Diagnosis > or = 6.5 Diabetic 5.7 - 6.4 Prediabetic <5.7 Non-diabetic eAVG Glucose 145.59 mg/dL 07/05/2022 9:44 PM EDT [facility] Blood Venipuncture / Unknown 07/05/2022 12:26 PM EDT 07/05/2022 12:26 PM EDT us Fady Bates MD LAB BLOOD ORDERABLES Final Res ult [facility] [address] [phone] from Last 3 Months or Most Recently Relevant to Health Maintenance Insurance [id number] (Home) [facility] [id number] MEDICAID [facility] [employer] MEDICAID [facility] Advance Directives For more information, please contact: [phone] Documents on File Type Date Recorded Patient Municipal Services Manager Expl anation Advance Directives and Livin g Will 07/07/2022 7:11 AM * Full Code (Latest Code Status on File) Date Activated Date Inactivated Comments 07/07/2022 4:06 PM 07/08/2022 4:14 PM Care Teams Information Security Architect Relationship Specialty Start Date End Date Jayden Rowan MD [address] [place] [phone] PCP - General General Internal Medicine 07/05/22
--- OUTSIDE RECORDS SUMMARY | 2024-10-10 11:10 | XMS_ITS | Encounter Summary ---
Author Organization [employer] ([place], [place], [place], [place]) Address [address] [place] [address] Care Team Providers Care Adjunct Psychology Faculty Member Name Role Phone Jayden Rowan MD Primary Care Provider [phone] Encounter Details Date Type Department Care Team (Late st Contact Info) Description 03/04/2019 Transcribed Document [facility] [place] [facility] [place] [address] ProviderJason MD [address] [place] [address] Social History Tobacco Use Types [...] Jason Zendejas MD - 03/04/2019 1:08 AM BUS AIDE ED Discharge Entered On: 03/04/2019 1:09 EST [...] - 03/04/2019 1:08 EST Electronically signed by [facility] Conversion Brick And Blocker Aid Labor Cerner at 06/09/2022 3:29 PM CDT documented in this encounter Plan of Treatment Not on file documented as of this encounter Visit Diagnoses Not on filedocumented in this encounter Care Teams Adjunct Psychology Faculty Member Relationship Specialty Start Date End Date Jayden Rowan MD [address] [place] [phone] PCP - General General Internal Medicine 07/05/22 documented as of this encounter
--- OUTSIDE RECORDS SUMMARY | 2024-10-10 11:10 | XMS_ITS | Encounter Summary ---
Author Organization [employer] ([place], [place], [place], [place]) Address [address] [place] [address] Care Team Providers Care Spiritual Advisor Name Role Phone Jayden Rowan MD Primary Care Provider [phone] Encounter Details Date Type Department Care Team (Late st Contact Info) Description 06/19/2019 Transcribed Document [facility] [place] Family Medicine [address] [place] [address] ProviderJason MD [address], [place] [id number] Social History Tobacco Use Types Packs/Day Years [...] On: 06/19/2019 23:20 EDT by Mark Olmedo, Printing Technician Process Patient Disposition : Discharge Personal Belongings [...] on filedocumented in this encounter Care Teams Spiritual Advisor Relationship Specialty Start Date End Date Jayden Rowan MD [address] [place] [phone] PCP - General General Internal Medicine 07/05/22 documented as of this encounter
--- OUTSIDE RECORDS SUMMARY | 2024-10-10 11:10 | XMS_ITS | Encounter Summary ---
Author Organization [employer] ([place], [place], [place], [place]) Address [address] [place] [address] Care Team Providers Care Nurses' Registry Director Name Role Phone Jayden Rowan MD Primary Care Provider [phone] Encounter Details Date Type Department Care Team (Late st Contact Info) Description 02/06/2020 Transcribed Document [facility] [place] Family Medicine [address] [place] [address] ProviderJason MD [address] [place] [address] Social History Tobacco Use Types [...] - Jason ProviderMD - 02/06/2020 1:15 PM CIVIL ENGINEERING INTERN [place] Suicide Severity Rating Scale (C-SSRS) Entered On: 02/06/2020 13:24 EST Performed On: 02/06/2020 13:20 EST by RACHAEL QUINTANA RN [place] Suicide Severity Rating Scale (C-SSRS) CSSRS Past Month Wish to be : No CSSRS Past Month Suicidal Thoughts : No CSSRS Lifetime Suicide Behavior : No Suicide Severity Rating Score : 0 Suicide Severity Rating : No Additional Care Required at this time RACHAEL QUINTANA RN - 02/06/2020 13:20 EST Electronically signed by Tadeo [facility] Conversion Hot Metal Charger Cerner at 06/09/2022 3:31 PM CDT documented in this encounter Plan of Treatment Not on file documented as of this encounter Visit Diagnoses Not on filedocumented in this encounter Care Teams Nurses' Registry Director Relationship Specialty Start Date End Date Jayden Rowan MD [address] [place] [phone] PCP - General General Internal Medicine 07/05/22 documented as of this encounter
--- OUTSIDE RECORDS SUMMARY | 2024-10-10 11:10 | XMS_ITS | Encounter Summary ---
Author Organization [employer] ([place], [place], [place], [place]) Address [address] [place] [address] Care Team Providers Care Directional Drill Operator Name Role Phone Jayden Rowan MD Primary Care Provider [phone] Encounter Details Date Type Department Care Team (Late st Contact Info) Description 08/24/2021 Transcribed Document [facility] [place] Family Medicine [address] [place] [address] ProviderJason MD [address] [place] [address] Social History Tobacco Use Types [...] On: 08/24/2021 21:39 EDT by Ewa Villagran CLOTH SPREADER SCREEN PRINTING Discharge Vital Signs Peripheral Pulse Rate : 64 bpm Respiratory Rate : 18 Breaths/Min Oxygen Saturation : 99 % Oxygen Therapy Mode : Room air Ewa Villagran RN - 08/24/2021 21:39 EDT Electronically signed by Tadeo [facility] Conversion Welding Inspector Cerner at 06/09/2022 3:31 PM CDT documented in this encounter Plan of Treatment Not on file documented as of this encounter Visit Diagnoses Not on filedocumented in this encounter Care Teams Directional Drill Operator Relationship Specialty Start Date End Date Jayden Rowan MD [address] [place] [phone] PCP - General General Internal Medicine 07/05/22 documented as of this encounter
--- OUTSIDE RECORDS SUMMARY | 2024-10-10 11:10 | XMS_ITS | Encounter Summary ---
Author Organization [employer] ([place], [place], [place], [place]) Address [address] [place] [address] Care Team Providers Care Spray Drier Operator Name Role Phone Leanna Rivera MD Primary Care Provider [phone] Encounter Details Date Type Department Care Team (Late st Contact Info) Description 09/05/2018 Transcribed Document [facility] Radiology [address] [place] [id number] Gali Garrett MD [facility] Dept [place] [address] Social History Tobacco Use Types Packs/Day Years [...] EDT Height Source Stated Height Entry Format [place] Height/Length, ANGOL[place] (ft) 5 ft Height/Length ANGOLAN 4 Inch CLINICALHEIGHT 162.56 cm [place] Body Weight 54.3 kg Weight Source, ED Critical estimated dosing weight Weight Entry Format Cotton Weight [place] lb 162 lb CLINICALWEIGHT 73.64 kg Body [...] on filedocumented in this encounter Care Teams Spray Drier Operator Relationship Specialty Start Date End Date Leanna Rivera MD [address] [place] [phone] PCP - General General Internal Medicine 07/05/22 documented as of this encounter
--- OUTSIDE RECORDS SUMMARY | 2024-10-10 11:10 | XMS_ITS | Encounter Summary ---
Author Organization [employer] ([place], [place], [place], [place]) Address [address] [place] [address] Care Team Providers Care Public Health Outreach Worker Name Role Phone Jayden Rowan MD Primary Care Provider [phone] Encounter Details Date Type Department Care Team (Late st Contact Info) Description 06/19/2019 Transcribed Document [facility] [place] Family Medicine [address] [place] [address] ProviderJason MD [address] [place] [address] Social History Tobacco Use Types [...] Jason ProviderMD - 06/19/2019 8:59 PM CDT [place] Suicide Severity Rating Scale (C-SSRS) Entered On: 06/19/2019 21:09 EDT Performed On: 06/19/2019 21:09 EDT by Dottie Baltazar RN [place] Suicide Severity Rating Scale (C-SSRS) CSSRS Past Month Wish to be : No CSSRS Past Month Suicidal Thoughts : No CSSRS Lifetime Suicide Behavior : No Suicide Severity Rating Score : 0 Suicide Severity Rating : No Additional Care Required at this time Dottie Baltazar RN - 06/19/2019 21:09 EDT Electronically signed by Jolie Piedra Conversion Communications And Signals Supervisor Cerner at 06/09/2022 3:28 PM CDT documented in this encounter Plan of Treatment Not on file documented as of this encounter Visit Diagnoses Not on filedocumented in this encounter Care Teams Public Health Outreach Worker Relationship Specialty Start Date End Date Jayden Rowan MD [address] [place] [phone] PCP - General General Internal Medicine 07/05/22 documented as of this encounter
--- OUTSIDE RECORDS SUMMARY | 2024-10-10 11:10 | XMS_ITS | Encounter Summary ---
Author Organization [employer] ([place], [place], [place], [place]) Address [address] [place] [address] Care Team Providers Care Manufacturing Controls Engineer Name Role Phone Jayden Rowan MD Primary Care Provider [phone] Encounter Details Date Type Department Care Team (Late st Contact Info) Description 06/19/2019 Transcribed Document [facility] [place] [address] [place] [address] ProviderJason MD [address] [place] [address] Social History Tobacco Use Types [...] 06/19/2019 11:14 PM CDT Electronically signed by [facility] Conversion Risk Modeler Cerner at 06/09/2022 3:29 PM CDT documented in this encounter Plan of Treatment Not on file documented as of this encounter Visit Diagnoses Not on filedocumented in this encounter Care Teams Manufacturing Controls Engineer Relationship Specialty Start Date End Date Jayden Rowan MD [address] [place] [phone] PCP - General General Internal Medicine 07/05/22 documented as of this encounter
--- OUTSIDE RECORDS SUMMARY | 2024-10-10 11:10 | XMS_ITS | Clinical Summary ---
Author Organization [employer] ([place], [place], [place], [place]) Address [address] [place] [address] Care Team Providers Care Engine Pilot Name Role Phone Jayden Rowan MD Primary Care Provider [phone] Allergies Active Allergy Reactions Criticality Noted Date [...] Jean Carlos rded Speak language other than Vietnamese at home Not on file 03/10/2023 Want [...] A1C 6.7 % 07/05/2022 9:44 PM EDT [facility] Comment: Hemoglobin A1C levels are related to mean glucose during the preceding 2-3 months. Less than 7% demonstrates glycemic control in diabetic patients. Hemoglobin AlC % Suggested Diagnosis > or = 6.5 Diabetic 5.7 - 6.4 Prediabetic <5.7 Non-diabetic eAVG Glucose 145.59 mg/dL 07/05/2022 9:44 PM EDT [facility] Blood Venipuncture / Unknown 07/05/2022 12:26 PM EDT 07/05/2022 12:26 PM EDT us Fady Bates MD LAB BLOOD ORDERABLES Final Res ult [facility] [address] [phone] from Last 3 Months or Most Recently Relevant to Health Maintenance Insurance [id number] (Home) [address] [facility] DINESH JOHNSON [id number] MEDICAID [facility] [employer] MEDICAID [facility] Advance Directives For more information, please contact: [phone] Documents on File Type Date Recorded 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
--- OUTSIDE RECORDS SUMMARY | 2024-10-10 11:10 | XMS_ITS | Encounter Summary ---
Author Organization [employer] ([place], [place], [place], [place]) Address [address] [place] [address] Care Team Providers Care Sanitary Landfill Supervisor Name Role Phone Leanna Rivera MD Primary Care Provider [phone] Encounter Details Date Type Department Care Team (Late st Contact Info) Description 10/19/2021 Transcribed Document [facility] [place] [address] [place] [address] ProviderJason MD [address] [place] [address] Social History Tobacco Use Types [...] Jean Carlos rded Speak language other than Austrian at home Not on file 03/10/2023 Want [...] EDT Height Source Stated Height Entry Format [place] Height/Length, [place] (ft) 5 ft Height/Length [place] 3 Inch CLINICALHEIGHT 160.02 cm [place] Body Weight 52.02 kg Weight Source, ED Critical estimated dosing weight Weight Entry Format [place] Weight Austrian lb 136 lb CLINICALWEIGHT 61.82 kg Body [...] filedocumented in this encounter Care Teams Sanitary Landfill Supervisor Relationship Specialty Start Date End Date Leanna Rivera MD [address] [place] [place] [phone] PCP - General General Internal Medicine 07/05/22 documented as of this encounter
--- OUTSIDE RECORDS SUMMARY | 2024-10-10 11:10 | XMS_ITS | Encounter Summary ---
Author Organization [employer] ([place], [place], [place], [place]) Address [address] [place] [address] Care Team Providers Care Animator Name Role Phone Leanna Rivera MD Primary Care Provider Encounter Details Date Type Department Care Team (Late st Contact Info) Description 11/03/2020 Transcribed Document [facility] [place] [address] [place] [address] ProviderJason MD [address] [place] [address] Social History Tobacco Use Types [...] Zendejas MD - 11/03/2020 12:03 PM CDT [facility] [address] [place] [address] CECILE RAMIREZIL :1955 Visit Time:11/03/2020 [...] Within 2 to 3 days Where: [address] [address] [facility] (1) Allergies HYDROmorphone Imitrex Maxalt Zofran [...] these instructions at home: Medicines ??? Take hecx-uqv-oeqaagj and prescription medicines only as told by your health care provider. ??? Ask your health care provider if the medicine prescribed to you: ? Requires you to avoid driving or using heavy machinery. ? Can cause constipation. You may need to take these actions to prevent or treat constipation: ? Drink enough fluid to keep your urine pale yellow. ? Take uxof-gtv-felytie or prescription medicines. ? Eat foods that [...] provider. Document Revised: 05/31/2019 Document Reviewed: 03/21/2019 [employer] Patient Education ?? 2020 Snip.ly. Emergency Awareness and Preventative Care STROKE is [...] Assistance with quitting is available by contacting 4-959-PDZF-NOW. This is a free resource providing counseling, [...] was given the opportunity to ask questions. Patient/Housing Assistant Name: Patient/Housing Assistant Signature: Relationship to Patient: Clinician/Hospital Housing Assistant Signature: Please Provide a Telephone Number Where You Can Be Reached: Is it Permissible To Leave a Message? Date: Electronically signed by [facility], [facility] Conversion Manager Fixed Income Cerner at 06/09/2022 3:31 PM CDT documented in this encounter Plan of Treatment Not on file documented as of this encounter Visit Diagnoses Not on filedocumented in this encounter Care Teams Animator Relationship Specialty Start Date End Date Leanna Rivera MD [address] [place] [address] [place] [phone] PCP - General General Internal Medicine 5/16/23 documented as of this encounter
--- OUTSIDE RECORDS SUMMARY | 2024-10-10 11:10 | XMS_ITS | Encounter Summary ---
Author Organization [employer] ([place], [place], [place], [place]) Address [address] [place] [address] Care Team Providers Care Oracle Fusion Middleware Architect Name Role Phone Leanna Rivera MD Primary Care Provider [phone] Encounter Details Date Type Department Care Team (Late st Contact Info) Description 04/30/2019 Transcribed Document [facility] [place] Family Medicine [address] [place] [address] ProviderJason MD [address] [place] [address] Social History Tobacco Use Types [...] 2:40 PM CDT Bashir Pina [address] [place] [address] CECILE RAMIREZIL :1955 Visit Time:04/30/2019 [...] Within 2 to 3 days Where: [address] [place] [address] [address] [place] [id number] [facility] (1) Allergies HYDROmorphone Imitrex Maxalt Zofran [...] these instructions at home: Medicines ??? Take flvz-jno-zrctkrq and prescription medicines only as told by your health care provider. ??? Do not drive or use heavy machinery while taking prescription pain medicine. ??? To prevent or treat constipation while you are taking prescription pain medicine, your health care provider may recommend that you: ? Drink enough fluid to keep your urine clear or pale yellow. ? Take xegh-tei-mopexuf or prescription medicines. ? Eat foods that [...] 02/06/2006 Document Revised: 08/26/2016 Document Reviewed: 07/25/2016 [employer] Patient Education ?? 2019 [employer]. Emergency Awareness and Preventative Care STROKE [...] Suicide Prevention Lifeline: The National Suicide [facility] is a national network of local [...] was given the opportunity to ask questions. Patient/Commercial Drafter Name: Patient/Commercial Drafter Signature: Relationship to Patient: Clinician/Hospital Commercial Drafter Signature: Please Provide a Telephone Number Where You Can Be Reached: Is it Permissible To Leave a Message? Date: Electronically signed by Interface, [facility] Conversion Business Law Teacher Cerner at 06/09/2022 3:28 PM CDT documented in this encounter Plan of Treatment Not on file documented as of this encounter Visit Diagnoses Not on filedocumented in this encounter Care Teams Oracle Fusion Middleware Architect Relationship Specialty Start Date End Date Leanna Rivera MD [address] [place] [phone] PCP - General General Internal Medicine 07/05/22 documented as of this encounter
--- OUTSIDE RECORDS SUMMARY | 2024-10-10 11:10 | XMS_ITS | Encounter Summary ---
Author Organization [employer] ([place], [place], [place], [place]) Address [address] [place] [address] Care Team Providers Care Manager Party Name Role Phone Jayden Rowan MD Primary Care Provider [phone] Encounter Details Date Type Department Care Team (Late st Contact Info) Description 10/02/2020 Transcribed Document [facility] Family Medicine [facility] [place] [address] ProviderJason MD [address] [place], [place] [id number] Social History Tobacco Use Types Packs/Day Years [...] On: 10/02/2020 12:18 EDT by Tori Rolon entry table operator Process Patient Disposition : Discharge Personal [...] - 10/02/2020 12:18 EDT Electronically signed by [facility], [facility] Conversion Copyist Cerner at 06/09/2022 3:29 PM CDT documented in this encounter Plan of Treatment Not on file documented as of this encounter Visit Diagnoses Not on filedocumented in this encounter Care Teams Manager Party Relationship Specialty Start Date End Date Jayden Rowan MD [address] [place] [phone] PCP - General General Internal Medicine 07/05/22 documented as of this encounter
--- OUTSIDE RECORDS SUMMARY | 2024-10-10 11:10 | XMS_ITS | Encounter Summary ---
Author Organization [employer] ([place], [place], [place], [place]) Address [address] [place] [address] Care Team Providers Care Chief Power Dispatcher Name Role Phone Leanna Rivera MD Primary Care Provider [phone] Encounter Details Date Type Department Care Team (Late st Contact Info) Description 10/02/2020 Transcribed Document [facility] [place] [address] [place] [address] ProviderJason MD [address] [place] [address] Social History Tobacco Use Types [...] Zendejas MD - 10/02/2020 12:11 PM CDT [facility] Saint Rian Pina [address] [place] [address] CECILE RAMIREZIL :1955 Visit Time:10/02/2020 [...] When Within 2 to 3 days Where: [address] [place] [address] [address] [place] [id number] [facility] (1) Allergies HYDROmorphone Imitrex Maxalt Zofran [...] these instructions at home: Medicines ??? Take vren-zwp-otupfwc and prescription medicines only as told by your health care provider. ??? Ask your health care provider if the medicine prescribed to you: ? Requires you to avoid driving or using heavy machinery. ? Can cause constipation. You may need to take these actions to prevent or treat constipation: ? Drink enough fluid to keep your urine pale yellow. ? Take euaw-kkf-ndeerct or prescription medicines. ? Eat foods that [...] provider. Document Revised: 05/31/2019 Document Reviewed: 03/21/2019 [employer] Patient Education ?? 2020 Who-Sells-it.com. Emergency Awareness and Preventative Care STROKE is [...] Assistance with quitting is available by contacting 5-701-DGNY-NOW. This is a free resource providing counseling, [...] was given the opportunity to ask questions. Patient/Purchasing Intern Name: Patient/Purchasing Intern Signature: Relationship to Patient: Clinician/Hospital Purchasing Intern Signature: Please Provide a Telephone Number Where You Can Be Reached: Is it Permissible To Leave a Message? Date: documented in this encounter Plan of Treatment Not on file documented as of this encounter Visit Diagnoses Not on filedocumented in this encounter Care Teams Chief Power Dispatcher Relationship Specialty Start Date End Date Leanna Rivera MD [address] [place] [address] [place] [phone] PCP - General General Internal Medicine 07/05/22 documented as of this encounter
--- OUTSIDE RECORDS SUMMARY | 2024-10-10 11:10 | XMS_ITS | Encounter Summary ---
Author Organization [employer] ([place], [place], [place], [place]) Address [address] [place] [address] Care Team Providers Care Local Tanker Truck Driver Name Role Phone Jayden Roawn MD Primary Care Provider [phone] Encounter Details Date Type Department Care Team (Late st Contact Info) Description 11/03/2020 Transcribed Document [facility] Family Medicine [address] [place] [address] ProviderJason MD [address] [place] [address] Social History Tobacco Use Types [...] Jason ProviderMD - 11/03/2020 10:54 AM CDT [place] Suicide Severity Rating Scale (C-SSRS) Entered On: 11/03/2020 11:16 EDT Performed On: 11/03/2020 11:14 EDT by BORIS METZ RN [place] Suicide Severity Rating Scale (C-SSRS) CSSRS Past Month Wish to be : No CSSRS Past Month Suicidal Thoughts : No CSSRS Lifetime Suicide Behavior : No Suicide Severity Rating Score : 0 Suicide Severity Rating : No Additional Care Required at this time BORIS METZ RN - 11/03/2020 11:14 EDT Electronically signed by Jolie Piedra Conversion Recreation Attendant Supervisor Cerner at 06/09/2022 3:28 PM CDT documented in this encounter Plan of Treatment Not on file documented as of this encounter Visit Diagnoses Not on filedocumented in this encounter Care Teams Local Tanker Truck Driver Relationship Specialty Start Date End Date Jayden Rowan MD [address] [place] [phone] PCP - General General Internal Medicine 07/05/22 documented as of this encounter
--- OUTSIDE RECORDS SUMMARY | 2024-10-10 11:10 | XMS_ITS | Encounter Summary ---
Author Organization [employer] ([place], [place], [place], [place]) Address [address] [place] [address] Care Team Providers Care Machine Operator Cane Cutter Name Role Phone Jayden Rowan MD Primary Care Provider Encounter Details Date Type Department Care Team (Late st Contact Info) Description 10/19/2021 Transcribed Document [facility] [place] Family Medicine [address] [place] [address] ProviderJason MD [address] [place] [address] Social History Tobacco Use Types [...] Jean Carlos rded Speak language other than [place] at home Not on file 03/10/2023 Want [...] on filedocumented in this encounter Care Teams Machine Operator Cane Cutter Relationship Specialty Start Date End Date Jayden Rowan MD [address] [place] [phone] PCP - General General Internal Medicine 07/05/22 documented as of this encounter
--- OUTSIDE RECORDS SUMMARY | 2024-10-10 11:10 | XMS_ITS | Encounter Summary ---
Author Organization [employer] ([place], [place], [place], [place]) Address [address] [place] [address] Care Team Providers Care Hair Mixer Name Role Phone Jayden Rowan MD Primary Care Provider Encounter Details Date Type Department Care Team (Late st Contact Info) Description 06/10/2020 Transcribed Document [facility] [place] Family Medicine [address] [place] [address] ProviderJason MD [address] [place] [address] Social History Tobacco Use Types [...] of the form. Electronically signed by Tadeo [facility] Conversion Hydrodynamicist Cerner at 06/09/2022 3:29 PM CDT documented in this encounter Plan of Treatment Not on file documented as of this encounter Visit Diagnoses Not on filedocumented in this encounter Care Teams Hair Mixer Relationship Specialty Start Date End Date Jayden Rowan MD [address] [place] [phone] PCP - General General Internal Medicine 07/05/22 documented as of this encounter
--- OUTSIDE RECORDS SUMMARY | 2024-10-10 11:10 | XMS_ITS | Encounter Summary ---
Author Organization [employer] ([place], [place], [place], [place]) Address [address] [place] [address] Care Team Providers Care Cell Tester Name Role Phone Jayden Rowan MD Primary Care Provider [phone] Encounter Details Date Type Department Care Team (Late st Contact Info) Description 02/06/2020 Transcribed Document [facility] [place] [facility] [address] [place] [address] ProviderJason MD [address] [place] [address] Social History Tobacco Use Types [...] Jason Zendejas MD - 02/06/2020 2:02 PM WORSHIP DIRECTOR ED Discharge Entered On: 02/06/2020 14:03 EST Performed On: 02/06/2020 14:02 EST by Tori Rolon auto tire recapper Process Patient Disposition : Discharge Personal Belongings [...] - 02/06/2020 14:02 EST Electronically signed by [facility], [facility] Conversion Pack Room Operator Cerner at 06/09/2022 3:27 PM CDT documented in this encounter Plan of Treatment Not on file documented as of this encounter Visit Diagnoses Not on filedocumented in this encounter Care Teams Cell Tester Relationship Specialty Start Date End Date Jayden Rowan MD [address] [place] [phone] PCP - General General Internal Medicine 07/05/22 documented as of this encounter
--- OUTSIDE RECORDS SUMMARY | 2024-10-10 11:10 | XMS_ITS | Encounter Summary ---
Author Organization [employer] ([place], [place], [place], [place]) Address [address] [place] [address] Care Team Providers Care Straight Line Press Setter Name Role Phone Jayden Rowan MD Primary Care Provider Encounter Details Date Type Department Care Team (Late st Contact Info) Description 06/19/2019 Transcribed Document [facility] [place] Medicine [address] [place] [address] ProviderJason MD [address] [place] [address] Social History Tobacco Use [...] On: 06/19/2019 21:03 EDT by Dottie Baltazar ICE CREAM VENDOR Triage Across the Room Chief Complaint : c/o headache and vomiting x 4 days, hx of same Triage Date/Time : 06/19/2019 21:03 EDT Dottie Baltazar RN - 06/19/2019 21:03 EDT DCP GENERIC CODE Tracking Acuity : 3 - Urgent Tracking Group : [facility] ED Dottie Mistry RN - [...] 06/19/2019 21:08:56 EDT) Problems(Active) Anxiety (SNOMED CT :44989347 ) Name of Problem: Anxiety ; Recorder: BOB PEARCE RN; Confirmation: Confirmed ; Classification: Medical ; Code: [id number] ; Contributor System: PowerChart ; Last Updated: 08/01/2013 19:25 EDT ; Life Cycle Date: 05/11/2013 ; Life Cycle Status: Active ; Vocabulary: SNOMED CT Appendectomy (SNOMED CT :495989349 ) Name of Problem: Appendectomy ; Recorder: BOB PEARCE RN; Confirmation: Confirmed ; Classification: Medical ; Code: 165912322 ; Contributor System: PowerChart ; Last Updated: 08/06/2013 10:55 EDT ; Life Cycle Date: 05/11/2013 ; Life Cycle Status: Active ; Vocabulary: SNOMED CT Bladder (SNOMED CT :515580982 ) Name of Problem: Bladder ; Recorder: BOB PEARCE RN; Confirmation: Confirmed ; Classification: Medical ; Code: 380482089 ; Contributor System: PowerChart ; Last Updated: 08/08/2013 13:51 EDT ; Life Cycle Date: 05/11/2013 ; Life Cycle Status: Active ; Vocabulary: SNOMED CT ; Comments: 05/11/2013 16:28 - BOB PEARCE RN bladder sling Cholecystectomy (SNOMED CT :81810167 ) Name of Problem: Cholecystectomy ; Recorder: BOB PEARCE RN; Confirmation: Confirmed ; Classification: Medical ; Code: 45825833 ; Contributor System: FanearChart ; Last Updated: 08/06/2013 10:53 EDT ; Life Cycle Date: 05/11/2013 ; Life Cycle Status: Active ; Vocabulary: SNOMED CT COPD (chronic obstructive pulmonary disease) (SNOMED CT :53195140 ) Name of Problem: COPD (chronic obstructive pulmonary disease) ; Recorder: BONNIE FUCHS RN; Confirmation: Confirmed ; Classification: Medical ; Code: 20424873 ; Contributor System: PowerChart ; Last Updated: 06/30/2014 10:41 EDT ; Life Cycle Date: 06/30/2014 ; Life Cycle Status: Active ; Vocabulary: SNOMED CT Depression (SNOMED CT :458763936 ) Name of Problem: Depression ; Recorder: BOB PEARCE RN; Confirmation: Confirmed ; Classification: Medical ; Code: 474013872 ; Contributor System: PowerChart ; Last Updated: 08/01/2013 19:25 EDT ; Life Cycle Date: 05/11/2013 ; Life Cycle Status: Active ; Vocabulary: SNOMED CT Diabetes mellitus (SNOMED CT :039946470 ) Name of Problem: Diabetes mellitus ; Recorder: Arabella Pineda RN; Confirmation: Confirmed ; Classification: Patient Stated ; Code: 573897198 ; Contributor System: FanearChart ; Last Updated: 07/09/2017 2:14 EDT ; Life Cycle Date: 07/09/2017 ; Life Cycle Status: Active ; Vocabulary: SNOMED CT GERD (gastroesophageal reflux disease) (SNOMED CT :263065534 ) Name of Problem: GERD (gastroesophageal reflux disease) ; Recorder: BONNIE FUCHS RN; Confirmation: Confirmed ; Classification: Medical ; Code: 819965378 ; Contributor System: PowerChart ; Last Updated: 06/30/2014 10:41 EDT ; Life Cycle Date: 06/30/2014 ; Life Cycle Status: Active ; Vocabulary: SNOMED CT High cholesterol (SNOMED CT :[id number] ) Name of Problem: High cholesterol ; Recorder: BOB PEARCE RN; Confirmation: Confirmed ; Classification: Medical ; Code: [id number] ; Contributor System: FanearChart ; Last Updated: 08/01/2013 19:25 EDT ; Life Cycle Date: 05/11/2013 ; Life Cycle Status: Active ; Vocabulary: SNOMED CT Hysterectomy (SNOMED CT :673744376 ) Name of Problem: Hysterectomy ; Recorder: BOB PEARCE RN; Confirmation: Confirmed ; Classification: Medical ; Code: 286982226 ; Contributor System: PowerChart ; Last Updated: 08/06/2013 10:54 EDT ; Life Cycle Date: 05/11/2013 ; Life Cycle Status: Active ; Vocabulary: SNOMED CT Migraine (SNOMED CT :75562882 ) Name of Problem: Migraine ; Recorder: BOB PEARCE RN; Confirmation: Confirmed ; Classification: Medical ; Code: 50106151 ; Contributor System: PowerChart ; Last Updated: 08/01/2013 19:25 EDT ; Life Cycle Date: 05/11/2013 ; Life Cycle Status: Active ; Vocabulary: SNOMED CT Diagnoses(Active) Headache Date: 06/19/2019 ; Diagnosis Type: Reason For Visit ; Confirmation: Complaint of ; Clinical Dx: Headache ; Classification: Medical ; Clinical Service: Emergency medicine ; Code: PNED ; Probability: 0 ; Diagnosis Code: [id number] ED Height and Weight Height Source : Stated Height Entry Format : Swisher Height, Feet : 5 ft(Converted to: 152 cm, 60 Inch) Height, Inches : 4 Inch(Converted to: 0 ft 4 Inch, 10.16 cm) Clinical Height : 162.56 cm Weight Source, ED : Critical estimated dosing weight Weight Entry Format : Swisher Weight, Pounds : 172 lb Clinical Dosing Weight : 78.18 kg Body Surface Area (BSA) : 1.84 m2 Body Mass Index : 29.6 kg/m2 (HI) [place] Body Weight (IBW) : 54.3 kg Dottie [...] on filedocumented in this encounter Care Teams Straight Line Press Setter Relationship Specialty Start Date End Date Jayden Rowan MD [address] [place] [phone] PCP - General General Internal Medicine 07/05/22 documented as of this encounter
--- OUTSIDE RECORDS SUMMARY | 2024-10-10 11:10 | XMS_ITS | Encounter Summary ---
Author Organization [employer] ([place], [place], [place], [place]) Address [address] [place] [address] Care Team Providers Care Pelletizer Operator Name Role Phone Leanna Rivera MD Primary Care Provider [phone] Encounter Details Date Type Department Care Team (Late st Contact Info) Description 05/10/2021 Transcribed Document [facility] Radiology [address] [place] [address] Lisa Rivera MD One [facility] Dept of Emergency Medicine [place] [id number] Social History Tobacco Use Types Packs/Day Years [...] Jean Carlos rded Speak language other than Belarusian at home Not on file 03/10/2023 Want [...] blocks. Pt is considering establishing care with portrait painter but has not yet done so.. [...] EDT Height Source Stated Height Entry Format [place] Height/Length, ALBANIAN (ft) 5 ft Height/Length ALBANIAN 3 Inch CLINICALHEIGHT 160.02 cm [place] Body Weight 52.02 kg Weight Source, ED Standing scale Weight Entry Format [place] Weight Belarusian lb 140 lb CLINICALWEIGHT 63.64 kg Body [...] Triage: ED C-SSRS: ED Clinical Reconciliation: ED ice maker: fentaNYL: 100 mcg, IntraMuscular, 1-Time promethazine: 25 [...] with specialist Within 2 to 4 days facility practice specialist; JOSHUA MCNEAL Within 2 to 4 days One option for portrait painter. Counseled: Patient, Regarding treatment plan. documented in this encounter Plan of Treatment Not on file documented as of this encounter Visit Diagnoses Not on filedocumented in this encounter Care Teams Pelletizer Operator Relationship Specialty Start Date End Date Leanna Rivera MD [address] [place] [phone] PCP - General General Internal Medicine 07/05/22 documented as of this encounter
--- OUTSIDE RECORDS SUMMARY | 2024-10-10 11:10 | XMS_ITS | Encounter Summary ---
Author Organization [employer] ([place], [place], [place], [place]) Address [address] [place] [address] Care Team Providers Care Integrated Program Teacher Name Role Phone Jayden Rowan MD Primary Care Provider [phone] Encounter Details Date Type Department Care Team (Late st Contact Info) Description 08/11/2020 Transcribed Document [facility] [place] [address] [place] [address] ProviderJason MD [address] [place], [place] [id number] Social History Tobacco Use Types Packs/Day Years [...] On: 08/11/2020 14:02 EDT by RACHAEL QUINTANA, audiology assistant Process Patient Disposition : Discharge Personal Belongings [...] 08/11/2020 14:13 EDT Electronically signed by Tadeo [facility] Conversion Education Trainer Cerner at 06/09/2022 3:31 PM CDT documented in this encounter Plan of Treatment Not on file documented as of this encounter Visit Diagnoses Not on filedocumented in this encounter Care Teams Integrated Program Teacher Relationship Specialty Start Date End Date Jayden Rowan MD [address] [place] [phone] PCP - General General Internal Medicine 07/05/22 documented as of this encounter
--- OUTSIDE RECORDS SUMMARY | 2024-10-10 11:10 | XMS_ITS | Encounter Summary ---
Author Organization [employer] ([place], [place], [place], [place]) Address [address] [place] [address] Care Team Providers Care Assistant Producer Name Role Phone Jayden Rowan MD Primary Care Provider [phone] Encounter Details Date Type Department Care Team (Late st Contact Info) Description 02/06/2020 Transcribed Document [facility] [place] [address] [place] [address] ProviderJason MD [address] [place] [address] Social History Tobacco Use Types [...] - Jason ProviderMD - 02/06/2020 1:15 PM DROP FORGE OPERATOR Broset Violence Assessment Entered On: 02/06/2020 13:24 EST Performed On: 02/06/2020 13:20 EST by RACHAEL QUINTANA, RN Broset Violence Assessment Broset Violence Checklist of Symptoms : None Broset Violence Symptoms Subtotal : 0 Broset Violence Symptoms Indicator : Low risk (0) Broset Interventions : [place] precautions for safety used RACHAEL QUINTANA RN - 02/06/2020 13:20 EST documented in this encounter Plan of Treatment Not on file documented as of this encounter Visit Diagnoses Not on filedocumented in this encounter Care Teams Assistant Producer Relationship Specialty Start Date End Date Jayden Rowan MD [address] [place] [phone] PCP - General General Internal Medicine 07/05/22 documented as of this encounter
--- OUTSIDE RECORDS SUMMARY | 2024-10-10 11:11 | XMS_ITS | Encounter Summary ---
Author Organization [employer] ([place], [place], [place], [place]) Address [address] [place] [address] Care Team Providers Care Door Opener Name Role Phone Jayden Rowan MD Primary Care Provider [phone] Encounter Details Date Type Department Care Team (Late st Contact Info) Description 06/26/2020 Transcribed Document [facility] [place] Counts include 234 beds at the [facility] [place] [address] ProviderJason MD [address] [place], [place] [phone] Social History Tobacco Use Types Packs/Day Years [...] - 06/26/2020 17:12 EDT Electronically signed by [facility] Conversion Etl Bi Developer Cerner at 06/09/2022 3:27 PM CDT documented in this encounter Plan of Treatment Not on file documented as of this encounter Visit Diagnoses Not on filedocumented in this encounter Care Teams Door Opener Relationship Specialty Start Date End Date Jayden Rowan MD [address] [place] [phone] PCP - General General Internal Medicine 07/05/22 documented as of this encounter
--- OUTSIDE RECORDS SUMMARY | 2024-10-10 11:11 | XMS_ITS | Encounter Summary ---
Author Organization [employer] ([place], [place], [place], [place]) Address [address] [place] [address] Care Team Providers Care Sales Performance Analyst Name Role Phone Jayden Rowan MD Primary Care Provider [phone] Encounter Details Date Type Department Care Team (Late st Contact Info) Description 08/11/2020 Transcribed Document [facility] [place] [address] [place] [address] ProviderJason MD [address] [place] [address] Social History Tobacco Use [...] filedocumented in this encounter Care Teams Sales Performance Analyst Relationship Specialty Start Date End Date Jayden Rowan MD [address] [place] [phone] PCP - General General Internal Medicine 07/05/22 documented as of this encounter
--- OUTSIDE RECORDS SUMMARY | 2024-10-10 11:11 | XMS_ITS | Encounter Summary ---
Author Organization [employer] ([place], [place], [place], [place]) Address [address] [place] [address] Care Team Providers Care Editorial Cartoonist Name Role Phone Jayden Rowan MD Primary Care Provider [phone] Encounter Details Date Type Department Care Team (Late st Contact Info) Description 04/08/[address] [facility] [place] [address] [place] [address] ProviderJason MD [address] [place], [place] [phone] Social History Tobacco Use Types Packs/Day Years Used Date Smoking Tobacco: Never Assessed Comments Unknown Sex and Gender Information Value Date Recorded Sex Assigned at Not on file Legal Sex Female 3:15 PM CDT Gender Identity Not on file Sexual Orientation Not on file documented as of this encounter Miscellaneous Notes * Cerner Conversion Note - Jason Zendejas MD - 04/08/2018 3:24 PM MANAGER ADMINISTRATIVE Patient: CECILE RAMIREZ Age: 63 years Sex: [...] route. There was no reported trauma. Our Librarian Specialist has spoken with her [id number]. The patient has reportedly been stating that [...] Fall Risk Assessment: ED Clinical Reconciliation: ED strategic sourcing specialist: Normal Saline Flush: 10 mL, IV Push, [...] % 29.4 % Lymph # 2.57 x10(3)/uL [place] % 6.7 % [place] # 0.59 K/uL Eos % 3.3 % Eos # 0.29 x10(3)/uL Baso % 0.6 % Baso # 0.05 x10(3)/uL Slide Review No IG# 0.04 x10(3)/uL IG% 0.50 % PT 10.0 Second(s) INR 0.9 Urine Type U CleanCatch Urine Color Yellow Urine Appearance Clear Urine Specific [place] 1.007 Urine pH Dipstick 6.5 Urine Leukocyte [...] Radiology results: Radiology Results (Last 48 hours) [id number] -- 04/08/2018 15:14 CT Head WO (04/08/2018 [...] Stable. Counseled: Patient, Family. Electronically signed by [facility], [facility] Conversion Manager Technical Support Cerner at 06/09/2022 3:28 PM CDT documented in this encounter Plan of Treatment Not on file documented as of this encounter Visit Diagnoses Not on filedocumented in this encounter Care Teams Editorial Cartoonist Relationship Specialty Start Date End Date Jayden Rowan MD [address] [place] [phone] PCP - General General Internal Medicine 07/05/22 documented as of this encounter
--- OUTSIDE RECORDS SUMMARY | 2024-10-10 11:11 | XMS_ITS | Encounter Summary ---
Author Organization [employer] ([place], [place], [place], [place]) Address [address] [place] [address] Care Team Providers Care Sustainable Products Marketing Manager Name Role Phone Jayden Rowan MD Primary Care Provider [phone] Encounter Details Date Type Department Care Team (Late st Contact Info) Description 06/26/2020 Transcribed Document [facility] [place] [address] [place] [address] ProviderJason MD [address] [place] [address] Social History Tobacco Use Types [...] Jason ProviderMD - 06/26/2020 3:26 PM CDT [place] Suicide Severity Rating Scale (C-SSRS) Entered On: 06/26/2020 16:32 EDT Performed On: 06/26/2020 16:31 EDT by Tori Rolon RN [place] Suicide Severity Rating Scale (C-SSRS) CSSRS Past [...] on filedocumented in this encounter Care Teams Sustainable Products Marketing Manager Relationship Specialty Start Date End Date Jayden Rowan MD [address] [place] [phone] PCP - General General Internal Medicine 07/05/22 documented as of this encounter
--- OUTSIDE RECORDS SUMMARY | 2024-10-10 11:11 | XMS_ITS | Patient Health Record ---
Author Organization [facility] Address [address] [place] [address] Care Team Providers Care Environmental Protection Specialist Name Role Phone Enoc Crane Primary Care [...] W/U Status Risk Notes Problem Mixed hyperlipidemia (804659090) Mixed hyperlipidemia (E78.2) Active confirmed Problem Mixed anxiety and depressive disorder (610735779) Depression with anxiety (F41.8) Active confirmed Problem Acute exacerbation of chronic obstructive airways disease (388707227) COPD exacerbation (J44.1) Active confirmed Problem Restless legs (06314606) RLS (restless legs syndrome) (G25.81) Active confirmed Problem Type 2 diabetes mellitus (40876049) Type 2 diabetes mellitus (E11.9) Active confirmed Problem Tobacco use (539179526) Tobacco use disorder (F17.200) Active confirmed Problem Status migrainosus (798043625) Migraine with status migrainosus, not intractable, unspecified migraine type (G43.901) Active confirmed Encounters Encounter Location Date Provider Diagnosis [facility] [address] [place] [address] 05/25/2024 Provider [facility] [address] [facility] [address] [place] [address] 10/20/2023 Enoc Crane Plan Of Treatment Pending [...] End Date [employer] MEDICARE DUAL [address] [address] [place] [address] [id number] Cecile Escobedo Self - patient is the [...]
--- OUTSIDE RECORDS SUMMARY | 2024-10-10 11:11 | XMS_ITS | Clinical Summary ---
Author Organization [facility] Address [address] [place] [address] Care Team Providers Care Radiology Nurse Name Role Phone Torie Duong APRN Primary Care Provider [phone] Allergies Active Allergy Reactions Criticality Noted Date [...] Date Urinary urgency 10/19/2021 Overview (10/19/2021): 10/18/2021 ANIMAL CARE SPECIALIST consult-urgency and frequency without evidence of prolapse-do not think pessary is beneficial-encourage urology consultation-planned with [place]. Persistent migraine aura without cerebral infarc tion 08/10/2021 Depression 09/23/2020 Hyperlipemia 09/23/2020 Migraine 09/02/2019 Incomplete bladder emptying 01/30/2017 COPD (chronic obstructive pulmonary disease) 06/2016 Smoker 08/15/2016 Overview (10/06/2021): Smoker 1ppd smoked since 18 yo never had cessation Annual ANIMAL CARE SPECIALIST exam S/P [id number] 06/17/2016 Overview (10/19/2021): SCREENING [...] 10/12/2021 Insurance MEDICAID [place] [employer] MEDICARE ADVANTAGE [facility] Care Teams Radiology Nurse Relationship Specialty Start Date End Date Torie Duong, JEANNIE [address] [place] [address] PCP - General Nurse Practitioner 12/29/23
--- OUTSIDE RECORDS SUMMARY | 2024-10-10 11:11 | XMS_ITS | Encounter Summary ---
Author Organization [employer] ([place], [place], [place], [place]) Address [address] [place] [address] Care Team Providers Care Prop Worker Name Role Phone Leanna Rivera MD Primary Care Provider [phone] Encounter Details Date Type Department Care Team (Late st Contact Info) Description 05/23/2018 Transcribed Document [facility] [place] [address] [place] [address] ProviderJason MD [address] [place] [address] Social History Tobacco Use Types [...] Zendejas MD - 05/23/2018 6:05 PM CDT [facility] [address] [place] [id number] Patient Information Name: CECILE RAMIREZ Age: 63 Years Date of : 1955 Arrival Time: 05/23/2018 17:19:00 Diagnosis Migraine Primary Care Physician: LEANNA RIVERA MD-INT Provider Information Primary Provider: TONEY JORGENSEN MD Secondary Provider: JAMES CECILE DARREN has been given the following list of patient education materials, prescriptions and follow-up instructions: Follow-up Instructions: With: Address: When: LEANNA RIVERA [address] [place] [address], [address] [place] [phone] Business (1) Within 2 to 3 days [...] these instructions at home: Medicines ??? Take bwtc-wea-izdutay and prescription medicines only as told by your health care provider. ??? Do notdrive or use heavy machinery while taking prescription pain medicine. ??? To prevent or treat constipation while you are taking prescription pain medicine, your health care provider may recommend that you: ? Drink enough fluid to keep your urine clear or pale yellow. ? Take gxdr-pjo-zynonjg or prescription medicines. ? Eat foods that [...] 02/06/2006 Document Revised: 08/26/2016 Document Reviewed: 07/25/2016 [employer] Interactive Patient Education ? 2016 [employer]. Allergies: acetaminophen-HYDROcodone; Maxalt; Imitrex; Zofran; HYDROmorphone; morphine; [...] verify that CECILE RAMIREZ was seen at [facility] Emergency Department on ,05/23/2018 18:05:18. [...] along the way. As a healthcare provider, [facility] recommends that you stop smoking. Assistance with quitting is available by contacting 4-853-JVQR-NOW. This is a free resource providing counseling, [...] Electronic Communications Privacy Act 18 U.S.C. ???Sections 9208-5794,?? and contain information intended for the specified [...] Be sure to sign up for the [facility] patient portal, which gives you 12/09 access to your medical information ??? including these discharge instructions ??? using your computer, smartphone, or tablet. Just go to [employer] to get started. Questions? Call . Acknowledgment [...] Physician: Electronically signed by Jolie Piedra Conversion Heavy Duty Mechanic Farm Equipment Cerner at 06/09/2022 3:26 PM CDT documented in this encounter Plan of Treatment Not on file documented as of this encounter Visit Diagnoses Not on filedocumented in this encounter Care Teams Prop Worker Relationship Specialty Start Date End Date Leanna Rivera MD [address] [place] [phone] PCP - General General Internal Medicine 07/05/22 documented as of this encounter
--- OUTSIDE RECORDS SUMMARY | 2024-10-10 11:11 | XMS_ITS | Encounter Summary ---
Author Organization [employer] ([place], [place], [place], [place]) Address [address] [place] [address] Care Team Providers Care Warehouse Administrator Name Role Phone Jayden Rowan MD Primary Care Provider [phone] Encounter Details Date Type Department Care Team (Late st Contact Info) Description 06/20/2018 Transcribed Document [facility] [facility] [address] [place] [address] ProviderJason MD [address] [place] [address] Social History Tobacco Use Types [...] Late entry - Fall about 1 hour RECORD CLERK. C/O shoulder and wrist pain Chung Wasserman, Director Emergency Services - 06/20/2018 5:28 EDT DCP GENERIC CODE Tracking Acuity : 4 - Non - Urgent Tracking Group : [facility] ED MohaveChung Wilder, Director Emergency Services - 06/20/2018 5:28 [...] 06/20/2018 05:32:56 EDT) Problems(Active) Anxiety (SNOMED CT :10155778 ) Name of Problem: Anxiety ; Recorder: BOB PEARCE RN; Confirmation: Confirmed ; Classification: Medical ; Code: [id number] ; Contributor System: PowerChart ; Last Updated: 08/01/2013 19:25 EDT ; Life Cycle Date: 05/11/2013 ; Life Cycle Status: Active ; Vocabulary: SNOMED CT Appendectomy (SNOMED CT :513417909 ) Name of Problem: Appendectomy ; Recorder: BOB PEARCE RN; Confirmation: Confirmed ; Classification: Medical ; Code: [id number] ; Contributor System: PowerChart ; Last Updated: 08/06/2013 10:55 EDT ; Life Cycle Date: 05/11/2013 ; Life Cycle Status: Active ; Vocabulary: SNOMED CT Bladder (SNOMED CT :479669525 ) Name of Problem: Bladder ; Recorder: BOB PEARCE RN; Confirmation: Confirmed ; Classification: Medical ; Code: [id number] ; Contributor System: PowerChart ; Last Updated: 08/08/2013 13:51 EDT ; Life Cycle Date: 05/11/2013 ; Life Cycle Status: Active ; Vocabulary: SNOMED CT ; Comments: 05/11/2013 16:28 - BOB PEARCE RN bladder sling Cholecystectomy (SNOMED CT :74686750 ) Name of Problem: Cholecystectomy ; Recorder: BOB PEARCE RN; Confirmation: Confirmed ; Classification: Medical ; Code: [id number] ; Contributor System: PowerChart ; Last Updated: 08/06/2013 10:53 EDT ; Life Cycle Date: 05/11/2013 ; Life Cycle Status: Active ; Vocabulary: SNOMED CT COPD (chronic obstructive pulmonary disease) (SNOMED CT :22834088 ) Name of Problem: COPD (chronic obstructive pulmonary disease) ; Recorder: BONNIE FUCHS RN; Confirmation: Confirmed ; Classification: Medical ; Code: [id number] ; Contributor System: KeasChart ; Last Updated: 06/30/2014 10:41 EDT ; Life Cycle Date: 06/30/2014 ; Life Cycle Status: Active ; Vocabulary: SNOMED CT Depression (SNOMED CT :369048944 ) Name of Problem: Depression ; Recorder: BOB PEARCE RN; Confirmation: Confirmed ; Classification: Medical ; Code: 685045803 ; Contributor System: PowerChart ; Last Updated: 08/01/2013 19:25 EDT ; Life Cycle Date: 05/11/2013 ; Life Cycle Status: Active ; Vocabulary: SNOMED CT Diabetes mellitus (SNOMED CT :396314912 ) Name of Problem: Diabetes mellitus ; Recorder: Arabella Pineda RN; Confirmation: Confirmed ; Classification: Patient Stated ; Code: [id number] ; Contributor System: PowerChart ; Last Updated: 07/09/2017 2:14 EDT ; Life Cycle Date: 07/09/2017 ; Life Cycle Status: Active ; Vocabulary: SNOMED CT GERD (gastroesophageal reflux disease) (SNOMED CT :364810528 ) Name of Problem: GERD (gastroesophageal reflux disease) ; Recorder: BONNIE FUCHS RN; Confirmation: Confirmed ; Classification: Medical ; Code: [id number] ; Contributor System: PowerChart ; Last Updated: 06/30/2014 10:41 EDT ; Life Cycle Date: 06/30/2014 ; Life Cycle Status: Active ; Vocabulary: SNOMED CT High cholesterol (SNOMED CT :[id number] ) Name of Problem: High cholesterol ; Recorder: BOB PEARCE RN; Confirmation: Confirmed ; Classification: Medical ; Code: [id number] ; Contributor System: [employer] ; Last Updated: 08/01/2013 19:25 EDT ; Life Cycle Date: 05/11/2013 ; Life Cycle Status: Active ; Vocabulary: SNOMED CT Hysterectomy (SNOMED CT :590404669 ) Name of Problem: Hysterectomy ; Recorder: BOB PEARCE RN; Confirmation: Confirmed ; Classification: Medical ; Code: 041298988 ; Contributor System: [employer] ; Last Updated: 08/06/2013 10:54 EDT ; Life Cycle Date: 05/11/2013 ; Life Cycle Status: Active ; Vocabulary: SNOMED CT Migraine (SNOMED CT :76919978 ) Name of Problem: Migraine ; Recorder: BOB PEARCE RN; Confirmation: Confirmed ; Classification: Medical ; Code: 62181648 ; Contributor System: PowerChart ; Last Updated: [...] PNED ; Probability: 0 ; Diagnosis Code: [id number] ED Height and Weight Height Source : Estimated Height Entry Format : [place] Height, Feet : 5 ft(Converted to: 152 cm, 60 Inch) Height, Inches : 6 Inch(Converted to: 0 ft 6 Inch, 15.24 cm) Clinical Height : 167.64 cm Weight Source, ED : Stated Kimberly Body Weight (IBW) : 58.88 kg Chung Wasserman, Director Emergency Services - 06/20/2018 5:28 EDT Estimated Weight Type of Weight Measurement Est : [place] Weight, est lb : 150 lb(Converted to: 68 kg) Weight, est oz : 0 oz Estimated Clinical Dosing Weight : 68.18 kg Chung Wasserman, Director Emergency Services - 06/20/2018 5:28 EDT Electronically signed by Tadeo, [facility] Conversion Application Spec Cerner at 06/09/2022 3:27 PM CDT documented in this encounter Plan of Treatment Not on file documented as of this encounter Visit Diagnoses Not on filedocumented in this encounter Care Teams Warehouse Administrator Relationship Specialty Start Date End Date Jyaden Rowan MD [address] [place] [phone] PCP - General General Internal Medicine 07/05/22 documented as of this encounter
--- NOTE | 2024-10-10 11:35 | EXP.PAIN.SOA ---
[facility] Disclaimer: The information contained in this section may have been updated after the patient was seen, as this information can be updated by other users. Medical History E-coli UTI Encounter for hepatitis C screening test for low risk patient Screening for HIV (human immunodeficiency virus) Encounter to establish care Allergic reaction to chemical substance Urticaria Right otitis media Viral respiratory illness Wheezing Migraine headache Closed fracture of right distal radius MDD (major depressive disorder) Mood disorder Sprain of right wrist Episodic migraine Acute UTI Back pain Allergic reaction Chest pain at rest Back pain Chest pain Chest pain Indigestion Atypical chest pain Seizure disorder Tremor Hernia Urinary incontinence, mixed GERD (gastroesophageal reflux disease) Anxiety and depression Type 2 diabetes mellitus COPD (chronic obstructive pulmonary disease) Hyperlipidemia Surgical History History of bladder surgery H/O hernia repair H/O: hysterectomy History of cholecystectomy Hx of appendectomy H/O neck surgery Family History Diabetes Cancer Social History Smoking Status: Current every day smoker alcohol intake: never substance use type: denies use current occupational status: other Travel in the last 8 weeks?: None household members: significant other housing: house marital status: caffeine: Yes Have you lived/traveled outside US in past 30 days?: No Contact w/someone who lives/traveled outside US past 30 days?: No Exposure to someone with infectious disease in past 14 days?: No Do you have a fever (greater than 100.4 F or 38 C)?: No Have you tested positive for COVID-19?: No Exposed to someone with COVID-19 in past 14 days?: No Do you have a sore throat?: No Do you have a cough?: No Do you have any weakness?: No Do you have any diarrhea?: No Are you experiencing any unusual bleeding?: No Do you have any muscle aches/pain?: No Do you have any abdominal pain?: No Are you experiencing loss of taste or smell?: No PM Subjective & Objective Subjective Subjective:: Patient is a pleasant 69-year-old female who presents today for follow-up of her intrathecal pain pump trial on 10/04/2024. Today she rates her pain a 3 out of 10. She does state that she has had 90% improvement following this procedure and felt like it was absolutely amazing. Patient states that she has not been able to sleep as well as she did for years and was able to clean her entire house following this procedure. Patient states that she really felt like it helped several days and that she did not start going back to having increasing pain until around Monday or Monday of this week. She denies any new falls or injuries. She does still feel like that the pain has not gotten as severe as it had prior even now. Patient would like to proceed forward with the implant as this made all the difference. Her Wilile has been reviewed and is appropriate. Review of Systems: General: No recent weight changes, no fever, no sleep disturbances Respiratory: No cough, no shortness of air, no recurring pulmonary infections Cardiovascular/peripheral vascular: No chest pain, no palpitations, no edema, no shortness of breath Gastrointestinal: No new onset incontinence, normal bowel movements reported Genitourinary: No new onset incontinence Musculoskeletal: Chronic back pain Psychiatric: [Normal mood/affect] Neurological: [Denies weakness in extremities], [denies balance issues] Pain at rest (0-10 scale): 3 Objective Objective:: Physical Exam: General: Alert and oriented x3, no acute distress, pleasant and cooperative Lungs: Respirations even and unlabored, symmetrical chest expansion Eyes: PERRL Musculoskeletal: Flexion and extension of lumbar [spine] somewhat guarded secondary to pain, [antalgic gait noted] Neurological: Speech clear, no gross sensory deficit Has patient had previous pain injection?: Yes What percentage of improvement in pain since last injection?: 85% Conservative treatment options previously tried: Home exercise plan Length of treatment: Longer than 12 weeks Meds Home Medications and Allergies Home Medications ?Medication ?Instructions ?Recorded ?Confirmed ?Type alcohol swabs (DropSafe Alcohol 1 pad topical DIRECTED 10/30/23 09/24/24 History Prep Pads) blood sugar diagnostic (Accu-Chek #10 ea 10/30/23 09/24/24 History Guide test strips) blood-glucose meter (Accu-Chek #1 ea 10/30/23 09/24/24 History Guide Me Glucose Meter) ipratropium 0.5 mg-albuterol 3 mg 3 ml inhalation Q4-6H PRN 10/30/23 09/24/24 History (2.5 mg base)/3 mL nebulization Breathing Problems soln lancets (Accu-Chek Softclix #100 ea 10/30/23 09/24/24 History Lancets) syringe with needle 3 mL 23 x 1 #1 ea 10/30/23 09/24/24 History (BD Luer-Konrad Syringe) famotidine 20 mg tablet 20 mg PO BID #180 tabs 11/16/23 09/24/24 Rx ropinirole 3 mg tablet 3 mg PO DAILY #90 tabs 12/14/23 09/24/24 Rx atorvastatin 80 mg tablet 80 mg PO DAILY #90 tabs 05/22/24 09/24/24 Rx promethazine 25 mg tablet 25 mg PO Q8HP PRN motion sickness 06/27/24 09/24/24 Rx #90 tabs dulaglutide 3 mg/0.5 mL See Rx Instructions .Route 07/22/24 09/24/24 Rx subcutaneous pen injector .COMPLEX #2 mL (Trulicity) albuterol sulfate 90 mcg/actuation 2 inh inhalation Q4-6H PRN 07/29/24 09/24/24 Rx aerosol inhaler Breathing Problems #8.5 grams azelastine 137 mcg (0.1 %) nasal 2 spray intranasal BID . #30 mL 07/29/24 09/24/24 Rx spray eptinezumab-jjmr 100 mg/mL 100 mg IV [id number] 07/29/24 09/24/24 Rx intravenous solution (Vyepti) fluticasone fur. 200 mcg-umeclid 1 inh inhalation DAILY #60 ea 07/29/24 09/24/24 Rx 62.5 mcg-vilant 25 mcg inhalat.powder (Trelegy Ellipta) meclizine 25 mg tablet 25 mg PO BID PRN motion sickness 07/29/24 09/24/24 Rx #60 tabs ubrogepant 100 mg tablet (Ubrelvy) 100 mg PO DAILY PRN Migraine 07/29/24 09/24/24 Rx Headache #30 tabs fenofibrate nanocrystallized 145 145 mg PO DAILY #30 tabs 07/31/24 09/24/24 Rx mg tablet sertraline 100 mg tablet See Rx Instructions .Route 07/31/24 09/24/24 Rx .COMPLEX #60 tabs sodium,potassium,mag sulfates 17.5 See Rx Instructions PO .COMPLEX 08/05/24 09/24/24 Rx gram-3.13 gram-1.6 gram oral soln #354 mL (Suprep Bowel Prep Kit) buspirone 10 mg tablet 10 mg PO BID #60 tabs 08/21/24 09/24/24 Rx metoclopramide HCl 10 mg tablet 10 mg PO ACHS nausea and vomiting 09/09/24 09/24/24 Rx #120 tabs levocetirizine 5 mg tablet 5 mg PO DAILY #30 tabs 09/20/24 09/20/24 Rx prednisone 20 mg tablet 20 mg PO BID #14 tabs 09/20/24 09/20/24 Rx clonazepam 1 mg tablet 1 mg PO BID #60 tabs 09/23/24 09/24/24 Rx New Prescriptions to Start Prescriptions: Allergies Allergy/AdvReac Type Severity Reaction Status Date / Time acetaminophen (From Lortab) Allergy Intermediate Verified 09/20/24 11:31 hydrocodone (From Lortab) Allergy Intermediate Verified 09/20/24 11:31 codeine AdvReac Severe Verified 09/20/24 11:31 hydromorphone (From Dilaudid) AdvReac Severe Verified 09/20/24 11:31 morphine AdvReac Severe Verified 09/20/24 11:31 oxycodone AdvReac Severe Verified 09/20/24 11:31 topiramate AdvReac Severe Hives Verified 09/20/24 11:31 ondansetron (From Zofran) AdvReac Intermediate Verified 09/20/24 11:31 Assessment and Plan *Assessment and plan (1) Chronic pain syndrome: Status: Acute Category: Medical Code(s): G89.4 - Chronic pain syndrome Plan Patient did undergo a intrathecal pump trial with significant improvement in the patient would like to proceed forward with the intrathecal implant. Patient did have 85% improvement and felt like it lasted more than 3 days. Patient did have improved function with decreased pain. Risk and benefits have been discussed and they still wish to continue with this plan of care. Patient has tried and failed conservative therapies. Patient does have a signed agreement that if we proceed forward with the intrathecal pump that there will be a decrease in oral pain medications if this is applicable with the overall goal 2-no oral opioids once the intrathecal pain pump is established. Prior to the intrathecal trial patient was on a fixed schedule with her medications and patient has been compliant with her medication regimen. Patient has had a psychological evaluation and was deemed an appropriate candidate for this procedure. Patient has also been evaluated by neurosurgery and was not a candidate for additional intervention. We will submit for the intrathecal pain pump implant under fluoroscopy. We will plan on putting the catheter inserted at the L1 vertebral body and the catheter tip at the T8 vertebral body with the plan for her pump to be Dilaudid 1 mg/mL with a starting dose of 100 mcg/day. Patient agrees with this plan of care. Patient has been instructed to contact the clinic with any concerns before the next appointment. Dr. Sheehan has reviewed this note and agrees with this plan of care. This note was dictated using voice recognition software and make contain errors or omissions. All injections are used with Lidocaine, Bupivacaine and dexamethasone. Occasionally urine drug screen is needed to verify patient's compliance with our office pain contract. This is ordered based off specific treatments related to chronic pain with the potential to abuse certain medications.
[2024-10-10 13:55] VITALS: BP 99/64; PULSE 93; RESP 14; O2SAT 95; BMI 25.2
== END 2024-10-10 23:59 | disposition home or self-care (01) ==
LOC: SC.PAIN 11:08
PROVIDERS: PCP Nurse Practitioner Family; Visit Provider Nurse Practitioner Family
DX: G89.4 Chronic pain syndrome (principal)
CPT/HCPCS: 99212; G0463

== ENCOUNTER 2024-10-30 09:29 | Outpatient (CLI) | payer MEDICARE, MEDICAID, SELFPAY ==
--- OUTSIDE RECORDS SUMMARY | 2023-12-28 06:15 | XMS_ITS ---
Author Organization [facility] Address [address] [place] [address] Care Team Providers Care Microbiology Lab Technician Name Role Phone Enoc Crane Primary Care Provider [phone] ENOC Crane APRN Unavailable Unavailable REASON FOR VISIT 3 Month F/U Encounters Encounter Location Date Provider Diagnosis [facility] [address] [place], [place] [address] 12/28/2023 Enoc Crane Plan Of Treatment No Information Progress Notes * RAMIREZ, Alber:1955 (69 yo F)Acc No.[id number]:12/28/2023 Progress Notes Patient: Cecile HUSSEIN Provider: Monie Crane APRN :1955 A ge:68 Y S ex:Female Date:12/28/2023 Address:[address] [id number] Subjective: * Chief Complaints: * 1 . 3 Month F/U. * Medical History: Objective: * Vitals: Assessment: Plan: * Treatment: * * Electronic signature of Phan Crane APRN on 11/01/2024 at 09:31 AM EDT Sign off status: Pending * Provider: Monie Crane APRN Date: 02/26/2023 Generated for Printi ng/Faxing/eTransmitting on: 0 11/01/2024 09:31 AM EDT
--- OUTSIDE RECORDS SUMMARY | 2024-05-25 17:30 | XMS_ITS ---
Author Organization [facility] Address [address] [place] [address] Care Team Providers Care White Sugar Boiler Name Role Phone Enoc Crane Primary Care Provider [phone] ENOC Crane APRN Unavailable Unavailable Migration, Provider Unavailable Unavailable Allergies Allergen (clinical drug ingredient) Drug/Non Drug Allergy documented on EMR Reaction Allergy Type Onset Date Status PERCODAN (uncoded) hallunications Allergy Active ZOFRAN (uncoded) stomach upset Allergy Active hydromorphone Dilaudid vomiting Drug Allergy Act florecita morphine Morphine vomiting Drug Allergy Active REASON FOR VISIT [facility] Conversion Encounter Medications Medication SIG (Take, Route, [...] Active Encounters Encounter Location Date Provider Diagnosis [facility] [address] [facility] [address] [place] [address] 05/25/2024 Provider Migration Plan Of Treatment Medication [...] Notes * Rivas RAMIREZB:1955 (69 yo F)Acc No.[id number]:05/25/2024 Patient: Alejandra HUSSEINnda Provider: Pankaj thomson Migration :1955 A ge:69 Y S ex:Female Date:05/25/2024 Address:[address] [place], [place] [address], [id number] Pcp:Enoc Crane Subjective: * Chief Complaints: * 1 . Multum To Medispan Conversion Encounter. * Medical History: * Medications: T peterg Trelegy Ellipta 200 MCG-62.5 MCG-25 MCG/INH POWDER 1 PUFF(S) INHALED ONCE A DAY , Notes to Pharmacist: *Please review and pick correct strength-formulation from [facility] options. If intended option is not shown, [...] Electronic signature of Prov ider Migration on 11/01/2024 at 09:30 AM EDT Sign off status: Pending * Provider: Pankaj thomson Migration Date: 0 05/25/2024 Generated for Yumiko robison/Margarette/Martha on: 0 11/01/2024 09:30 AM EDT
[2024-10-30 18:26] LABS: Cholesterol 141 mg/dl (140-200); HDL Cholesterol 37 mg/dl (40-60); Triglycerides 103 mg/dl (30-150)
[2024-10-30 20:22] LABS: Hemoglobin A1C 6.8 % (4.0-6.0)
--- OUTSIDE RECORDS SUMMARY | 2024-11-01 09:31 | XMS_ITS | Clinical Summary ---
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 Persistent migraine aura without cerebral infarc tion 08/10/2021 Depression 09/23/2020 Hyperlipemia 09/23/2020 Migraine 09/02/2019 Incomplete bladder emptying 01/30/2017 COPD (chronic obstructive pulmonary disease) 06/2016 Smoker 08/15/2016 Overview (10/06/2021): Smoker 1ppd smoked since 18 yo never had cessation Annual CHAINSTITCH SEAT JOINER exam S/P LAVHBSO 06/17/2016 Overview (10/19/2021): SCREENING [...] Date Smoking Tobacco: Every Day Cigarettes 1 51.7 Started: 1971 Smokeless Tobacco: Never Tobacco Cessation:Ready [...] A1C 01/05/2023 07/05/2022, 06/20, 03/27/2017 COVID-19 Vaccine (2024-03 6 season) 2024 10/04/2020, 05/28/2020 INFLUENZA VACCINE 11/20/2024 12/20/2022, , 11/08/2017, Additional history exists COLONOSCOPY 04/06/2027 04/06/2017 COLORECTAL CANCER SCREENING 04/06/2027 Pneumococcal Vaccine 50+ Completed 01/03/2022, 09/20 Goals Goal Patient Goal Type Associated Problems Recent Progress Patient-Stated? Author Symptom management General No Nelly De La Cruz, PharmD Additional Health Concerns Infection Onset Date Last Indicated ESBL E coli 10/12/2021 10/12/2021 Insurance MEDICAID [place] [employer] MEDICARE [facility]ANTAGE [facility] Care Teams An Employee Sponsor Or Advocate And Relationship Specialty Start Date End Date Torie Duong, JEANNIE [address] [place] [address] [place] [id number] PCP - General Nurse Practitioner 12/29/23
--- OUTSIDE RECORDS SUMMARY | 2024-11-01 09:31 | XMS_ITS | Patient Health Record ---
Author Organization [facility] Address [address] [place] [address] [place] [address] Care Team Providers Care Plasma [facility] Nurse Name Role Phone Enoc Crane Primary Care Provider ENCO Crane APRN Unavailable Unavailable Migration, Provider Unavailable [...] W/U Status Risk Notes Problem Mixed hyperlipidemia (905041766) Mixed hyperlipidemia (E78.2) Active confirmed Problem Mixed anxiety and depressive disorder (623595028) Depression with anxiety (F41.8) Active confirmed Problem Acute exacerbation of chronic obstructive airways disease (103200546) COPD exacerbation (J44.1) Active confirmed Problem Restless legs (76733319) RLS (restless legs syndrome) (G25.81) Active confirmed Problem Type 2 diabetes mellitus (99405782) Type 2 diabetes mellitus (E11.9) Active confirmed Problem Tobacco use (721397571) Tobacco use disorder (F17.200) Active confirmed Problem Status migrainosus (667205755) Migraine with status migrainosus, not intractable, unspecified migraine type (G43.901) Active confirmed Encounters Encounter Location Date Provider Diagnosis [facility] [address] [place] [address] 05/25/2024 Provider Migration Plan Of Treatment Pending Test Test Name [...] End Date [employer] MEDICARE DUAL [address] [address] [place] [address] [id number] Cecile Escobedo Self - patient is the [...]
== END 2024-10-30 23:59 ==
LOC: LAB.DROPOF 11-01 09:29
PROVIDERS: PCP Nurse Practitioner Family; Visit Provider Nurse Practitioner Family
DX: I10 Essential (primary) hypertension (principal); E11.9 Type 2 diabetes mellitus without complications
CPT/HCPCS: 80061; 83036

== ENCOUNTER 2024-11-11 10:29 | Outpatient (CLI) | payer MEDICARE, MEDICAID, SELFPAY ==
--- OUTSIDE RECORDS SUMMARY | 2023-12-28 06:15 | XMS_ITS ---
Author Organization [facility] Address [address] [place] [address] Care Team Providers Care Medical Records Coordinator Name Role Phone Enoc Crane Primary Care Provider ENOC Crane APRN Unavailable Unavailable REASON FOR VISIT 3 Month F/U Encounters Encounter Location Date Provider Diagnosis [facility] [address] [place], [place] [address] 12/28/2023 Enoc Crane Plan Of Treatment No Information Progress Notes * RAMIREZ, Alber:1955 (69 yo F)Acc No.[id number]:12/28/2023 Progress Notes Patient: Cecile HUSSEIN Provider: Monie Crane APRN :1955 A ge:68 Y S ex:Female Date:12/28/2023 Address:[address] [id number] Subjective: * Chief Complaints: * 1 . 3 Month F/U. * Medical History: Objective: * Vitals: Assessment: Plan: * Treatment: * * Electronic signature of Phan Crane APRN on 11/11/2024 at 10:35 AM EDT Sign off status: Pending * Provider: Monie Crane APRN Date: 02/26/2023 Generated for Printi ng/Faxing/eTransmitting on: 0 11/11/2024 10:35 AM EDT
--- OUTSIDE RECORDS SUMMARY | 2024-05-25 17:30 | XMS_ITS ---
Author Organization [facility] Address [address] [place] [address] Care Team Providers Care Associate Director Data & Analytics Name Role Phone Enoc Crane Primary Care Provider ENOC Crane APRN Unavailable Unavailable Migration, Provider Unavailable Unavailable Allergies Allergen (clinical drug ingredient) Drug/Non Drug Allergy documented on EMR Reaction Allergy Type Onset Date Status PERCODAN (uncoded) hallunications Allergy Active ZOFRAN (uncoded) stomach upset Allergy Active hydromorphone Dilaudid vomiting Drug Allergy Act florecita morphine Morphine vomiting Drug Allergy Active REASON FOR VISIT [facility] Conversion Encounter Medications Medication SIG (Take, Route, [...] Active Encounters Encounter Location Date Provider Diagnosis [facility] [address] [facility] [address] [place] [address] 05/25/2024 Provider Migration Plan Of Treatment Medication [...] Notes * Rivas RAMIREZB:1955 (69 yo F)Acc No.[id number]:05/25/2024 Patient: Alejandra HUSSEINnda Provider: Pankaj thomson Migration :1955 A ge:69 Y S ex:Female Date:05/25/2024 Address:[address] [place], [place] [id number] Pcp:Enoc Crane Subjective: * Chief Complaints: * 1 . Multum To Medispan Conversion Encounter. * Medical History: * Medications: T peterg Trelegy Ellipta 200 MCG-62.5 MCG-25 MCG/INH POWDER 1 PUFF(S) INHALED ONCE A DAY , Notes to Pharmacist: *Please review and pick correct strength-formulation [facility]. If intended option is not shown, [...] Electronic signature of Prov ider Migration on 11/11/2024 at 10:34 AM EDT Sign off status: Pending * Provider: Pankaj thomson Migration Date: 0 05/25/2024 Generated for Yumiko robison/Margarette/Jimboitting on: 0 11/11/2024 10:34 AM EDT
--- OUTSIDE RECORDS SUMMARY | 2024-11-11 10:36 | XMS_ITS | Patient Health Record ---
Author Organization [facility] Address [address] [place] [address] Care Team Providers Care Stock And Station Agent Name Role Phone Enoc Crane Primary Care [...] W/U Status Risk Notes Problem Mixed hyperlipidemia (880713631) Mixed hyperlipidemia (E78.2) Active confirmed Problem Mixed anxiety and depressive disorder (788173428) Depression with anxiety (F41.8) Active confirmed Problem Acute exacerbation of chronic obstructive airways disease (889383513) COPD exacerbation (J44.1) Active confirmed Problem Restless legs (46462000) RLS (restless legs syndrome) (G25.81) Active confirmed Problem Type 2 diabetes mellitus (46121368) Type 2 diabetes mellitus (E11.9) Active confirmed Problem Tobacco use (382574816) Tobacco use disorder (F17.200) Active confirmed Problem Status migrainosus (693763842) Migraine with status migrainosus, not intractable, unspecified migraine type (G43.901) Active confirmed Encounters Encounter Location Date Provider Diagnosis [facility] [address] [place] [address] 05/25/2024 Provider Migration Plan Of Treatment Pending [...] End Date [employer] MEDICARE DUAL [address] [address] [place] [address] [id number] Cecile Escobedo Self - patient is the [...]
--- OUTSIDE RECORDS SUMMARY | 2024-11-11 10:36 | XMS_ITS | Clinical Summary ---
Author Organization [facility] Address [address] [place] [address] Care Team Providers Care Remote Encoding Operations Supervisor Name Role Phone Torie Duong APRN Primary Care Provider [phone] Allergies Active Allergy Reactions Criticality Noted Date [...] Date Urinary urgency 10/19/2021 Overview (10/19/2021): 10/18/2021 SAMPLE WEAVER consult-urgency and frequency without evidence of prolapse-do not think pessary is beneficial-encourage urology consultation-planned with [place]. Persistent migraine aura without cerebral infarc tion 08/10/2021 Depression 09/23/2020 Hyperlipemia 09/23/2020 Migraine 09/02/2019 Incomplete bladder emptying 01/30/2017 COPD (chronic obstructive pulmonary disease) 06/2016 Smoker 08/15/2016 Overview (10/06/2021): Smoker 1ppd smoked since 18 yo never had cessation Annual SAMPLE WEAVER exam S/P LAVHBSO 06/17/2016 Overview (10/19/2021): SCREENING [...] 08/17/2018 HEMOGLOBIN A1C 01/05/2023 07/05/2022, 06/20, 03/27/2017 INFLUENZA VACCINE 09/20/2024 12/20/2022, , 11/08/2017, Additional history exists COVID-19 Vaccine (2024- 6 season) 2024 10/04/2020, 05/28/2020 COLONOSCOPY 04/06/2027 04/06/2017 COLORECTAL CANCER SCREENING 04/06/2027 Pneumococcal Vaccine 50+ Completed 01/03/2022, 09/20 Goals Goal Patient Goal Type Associated Problems Recent Progress Patient-Stated? Author Symptom management General No Nelly De La Cruz, PharmD Additional Health Concerns Infection Onset Date Last Indicated ESBL E coli 10/12/2021 10/12/2021 Insurance MEDICAID [place] [employer] MEDICARE [facility]ANTAGE [facility] Care Teams Remote Encoding Operations Supervisor Relationship Specialty Start Date End Date Torie Duong, JEANNIE [address] [place] [address] PCP - General Nurse Practitioner 12/29/23
[2024-11-11] MEDS: SODIUM CHLORIDE 0.9% 10ML FLUSH SYRINGE 10 ML IV (11:07)
[2024-11-11 11:08] VITALS: BP 106/64; PULSE 84; RESP 16; TEMP 36.5; O2SAT 98
[2024-11-11] MEDS: EPTINEZUMAB JJMR IV (11:08)
[2024-11-11] MEDS: SODIUM CHLORIDE 0.9% IV (11:08)
[2024-11-11 11:45] VITALS: BP 106/52; PULSE 78; RESP 16; TEMP 36.5; O2SAT 98
== END 2024-11-11 23:59 | disposition home or self-care (01) ==
LOC: INF 10:30
PROVIDERS: PCP Nurse Practitioner Family; Visit Provider Nurse Practitioner Family
DX: G43.909 Migraine, unspecified, not intractable, without status migrainosus (principal)
CPT/HCPCS: 96413; J3032

== ENCOUNTER 2024-12-27 12:01 | Outpatient (CLI) | payer MEDICARE, MEDICAID, SELFPAY ==
--- OUTSIDE RECORDS SUMMARY | 2023-12-28 05:15 | XMS_ITS ---
Author Organization [facility] Address [address] [place] [address] Care Team Providers Care Woodworking Machine Feeder Name Role Phone Enoc Crane Primary Care Provider ENOC Crane APRN Unavailable Unavailable REASON FOR VISIT 3 Month F/U Encounters Encounter Location Date Provider Diagnosis [facility] [address] [place], [place] [address] 12/28/2023 Enoc Crane Plan Of Treatment No Information Progress Notes * RAMIREZ, Alber:1955 (69 yo F)Acc No.[id number]:12/28/2023 Progress Notes Patient: Cecile HUSSEIN Provider: Monie Crane APRN :1955 A ge:68 Y S ex:Female Date:12/28/2023 Address:[address] [id number] Subjective: * Chief Complaints: * 1 . 3 Month F/U. * Medical History: Objective: * Vitals: Assessment: Plan: * Treatment: * * Electronic signature of Phan Crane APRN on 12/27/2024 at 12:03 PM EST Sign off status: Pending * Provider: Monie Crane APRN Date: 02/26/2023 Generated for Fabyi ng/Faxing/eTransmitting on: 02/27/2024 12:03 PM EST
--- OUTSIDE RECORDS SUMMARY | 2024-05-25 16:30 | XMS_ITS ---
Author Organization [facility] Address [address] [place] [address] Care Team Providers Care Hod Carrier Name Role Phone Enoc Crane Primary Care Provider [phone] ENOC Crane APRN Unavailable Unavailable Migration, Provider Unavailable Unavailable Allergies Allergen (clinical drug ingredient) Drug/Non Drug Allergy documented on EMR Reaction Allergy Type Onset Date Status PERCODAN (uncoded) hallunications Allergy Active ZOFRAN (uncoded) stomach upset Allergy Active hydromorphone Dilaudid vomiting Drug Allergy Act florecita morphine Morphine vomiting Drug Allergy Active REASON FOR VISIT [facility] To [facility] Conversion Encounter Medications Medication SIG (Take, Route, Frequency, Duration) Notes Start Date End Date Status Ipratropium-Albuter ol 0.5-2.5 (3) MG/3ML 3 mL by nebulizer 4 times a day; Duration: 90 days Active ALBUTEROL (EQV-PROVENTIL HFA) 90 MCG/INH 2 PUFF(S) INHALED EVERY 6 HOURS; Duration: 30 DAYS *Please review for potential replacement for e-prescription and drug interaction check* 08/21/2023 Active clonazePAM 1 MG 1 tab(s) orally twic e a day prn for anxiety; Duration: 30 days 10/09/2023 Active GLUCOMETER NA USE FOR BID FSBS TESTING NA TWICE DAILY; Duration: 30 DAYS *Please review for potential replacement for e-prescription and drug interaction check* 06/08/2023 Active rOPINIRole HCl 2 MG 1 tab(s) orally once a day and 1 as needed Active Trulicity 1.5 MG/0.5 ML 1.5MG SUBCUTANEOUSLY ONCE A WEEK; Duration: 28 DAYS *Please review and pick correct strength-formulati on from Medispan options. If intended option is not shown, discontinue and re-order from Quick Search* Active Atorvastatin Calcium 80 MG 1 tab(s) orally at bedtime; Duration: 90 days Active Trelegy Ellipta 200 MCG-62.5 MCG-25 MCG/INH 1 PUFF(S) INHALED ONCE A DAY *Please review and pick correct strength-formulati on from Medispan options. If intended option is not shown, discontinue and re-order from Quick Search* Active Sertraline HCl 100 MG 2 tabs orally once a day Active Promethazine HCl 25 MG 1 tab(s) orally every 8 hours prn; Duration: 7 days Active Encounters Encounter Location Date Provider Diagnosis [facility] [address] [facility] [address] [place] [address] 05/25/2024 Provider Migration Plan Of Treatment Medication Medication Name Sig Start Date Stop Date Notes clonazePAM 1 MG 1 tab(s) orally twic e a day prn for anxiety; Duration: 30 days 10/09/2023 Trulicity 1.5 MG/0.5 ML 1.5MG SUBCUTANEOUSLY ONCE A WEEK; Duration: 28 DAYS *Please review and pick correct strength-formulation from Medispan options. If intended option is not shown, discontinue and re-order from Quick Search* Atorvastatin Calcium 80 MG 1 tab(s) orally at bedtime; Duration: 90 days Promethazine HCl 25 MG 1 tab(s) orally every 8 hours prn; Duration: 7 days Progress Notes * Rivas RAMIREZB:1955 (69 yo F)Acc No.[id number]:05/25/2024 Patient: Alejandra HUSSEINnda Provider: Pankaj thomson Migration :1955 A ge:69 Y S ex:Female Date:05/25/2024 Address:[address] [place], [place] [id number] Pcp:Enoc Crane Subjective: * Chief Complaints: * 1 . Multum To Medispan Conversion Encounter. * Medical History: * Medications: T peterg Trelegy Ellipta 200 MCG-62.5 MCG-25 MCG/INH POWDER 1 PUFF(S) INHALED ONCE A DAY , Notes to Pharmacist: *Please review and pick correct strength-formulation from [facility]. If intended option is not shown, discontinue and re-order from Quick Search*, Taking Sertraline HCl 100 MG Tablet 2 tabs orally once a day , Taking rOPINIRole HCl 2 MG Tablet 1 tab(s) orally once a day and 1 as needed , Taking GLUCOMETER NA PER INSURANCE COVERAGE USE FOR BID FSBS TESTING NA TWICE DAILY , Notes to Pharmacist: *Please review for potential replacement for e-prescription and drug interaction check*, Taking ALBUTEROL (EQV-PROVENTIL HFA) 90 MCG/INH AEROSOL 2 PUFF(S) INHALED EVERY 6 HOURS , Notes to Pharmacist: *Please review for potential replacement for e-prescription and drug interaction check*, Taking Ipratropium-Albuterol 0.5-2.5 (3) MG/3ML Solution 3 mL by nebulizer 4 times a day * Allergies: P ERCODAN: hallunications - Allergy, ZOFRAN: stomach upset - Allergy, Dilaudid: vomiting - Allergy, Morphine: vomiting - Allergy. Objective: * Vitals: Assessment: Plan: * Treatment: * * Electronic signature of Prov ider Migration on 12/27/2024 at 12:03 PM EST Sign off status: Pending * Provider: Pankaj thomson Migration Date: 0 05/25/2024 Generated for Yumiko robison/Margarette/Jimboitting on: 1 02/27/2024 12:03 PM EST
--- OUTSIDE RECORDS SUMMARY | 2024-12-27 12:04 | XMS_ITS | Patient Health Record ---
Author Organization [facility] Address [address] [place] [address] Care Team Providers Care Mds Rn Name Role Phone Enoc Crane Primary Care Provider [phone] ENOC Crnae APRN Unavailable Unavailable Migration, Provider [...] W/U Status Risk Notes Problem Mixed hyperlipidemia (900991571) Mixed hyperlipidemia (E78.2) Active confirmed Problem Mixed anxiety and depressive disorder (911641552) Depression with anxiety (F41.8) Active confirmed Problem Acute exacerbation of chronic obstructive airways disease (007325931) COPD exacerbation (J44.1) Active confirmed Problem Restless legs (02834011) RLS (restless legs syndrome) (G25.81) Active confirmed Problem Type 2 diabetes mellitus (41671474) Type 2 diabetes mellitus (E11.9) Active confirmed Problem Tobacco use (395020411) Tobacco use disorder (F17.200) Active confirmed Problem Status migrainosus (277554066) Migraine with status migrainosus, not intractable, unspecified migraine type (G43.901) Active confirmed Encounters Encounter Location Date Provider Diagnosis [facility] [address] [place] [address] 05/25/2024 Provider Migration Plan Of Treatment Pending [...] End Date [employer] MEDICARE DUAL [address] [address] [place] [address] [id number] Cecile Escobedo Self - patient is the [...]
[2024-12-27 12:53] VITALS: BMI 23.8
--- NOTE | 2024-12-27 13:22 | ECG_ITS ---
APPROVED REPORT Exam: Resting ECG HR:79 bpm ECG Measurements Heart Rate 79 AXES TN 135 P 63 QRSd 73 QRS -12 QT 382 T 63 QTc 416 Conclusion SINUS RHYTHM Left atrial abnormality New septal changes compared to 2023 tracing ABNORMAL ECG UNCONFIRMED REPORT Electronically signed by : Manpreet Lemus MD 12/27/2024 17:20:31
[2024-12-27 13:44] LABS: Hematocrit 42.0 % (37.0-47.0); Hemoglobin 13.4 g/dL (12.2-16.2); Immature Granulocytes % 0.3 %; Mean Corpuscular HGB Conc 31.9 g/dL (31.8-35.4); Mean Corpuscular Hemoglobin 25.8 pg (27.0-31.2); Mean Corpuscular Volume 80.8 fl (81-99); Nucleated Red Blood Cells % 0 %; Platelet Count 233 K/mm3 (142-424); Red Blood Count 5.20 M/mm3 (4.20-5.40); Red Cell Distribution Width-SD 42.3 fL; White Blood Count 7.4 K/mm3 (4.8-10.8)
[2024-12-27 13:59] LABS: Anion Gap 8.9 mEq/L (5-15); Blood Urea Nitrogen 5 mg/dl (7-17); Calcium 9.1 mg/dl (8.4-10.2); Carbon Dioxide 27 mmol/L (22.0-30.0); Chloride 103 mmol/L (98-107); Creatinine Clearance Estimated 54 mL/min (50-200); Creatinine,Serum 0.60 mg/dl (0.52-1.04); Estimated Glomerular Filt Rate 100 ml/min (>60); GFR (African American) 121 ML/MIN (>60); Glucose 103 mg/dl (74-100); Potassium 3.9 mmoL/L (3.5-5.1); Sodium 135 mmol/L (136-145)
[2024-12-27 15:14] LABS: Hemoglobin A1C 6.5 % (4.0-6.0)
== END 2024-12-27 23:59 | disposition home or self-care (01) ==
LOC: PREOP 12:01
PROVIDERS: PCP Nurse Practitioner Family; Visit Provider Anesthesiology
DX: Z01.810 Encounter for preprocedural cardiovascular examination (principal); Z01.812 Encounter for preprocedural laboratory examination; R94.31 Abnormal electrocardiogram [ECG] [EKG]
CPT/HCPCS: 80048; 83036; 85025; 93005

== ENCOUNTER 2025-01-03 06:53 | Day surgery (SDC) | payer MEDICARE, MEDICAID, SELFPAY ==
[2024-12-27 08:50] VITALS: BMI 23.8
[2025-01-03 07:52] VITALS: BP 122/69; PULSE 76; RESP 17; TEMP 36.3; O2SAT 95
[2025-01-03] MEDS: LACTATED RINGERS 1000ML 1,000 ML 25 ML IV (08:08)
[2025-01-03 08:11] LABS: Amphetamine/Metha Screen,Urine Negative ng/ml (<1000); Barbiturates Screen,Urine Negative ng/ml (<200); Benzodiazepines Screen,Urine Positive ng/ml (<200); Methadone Screen,Urine Negative ng/ml (<300); Opiate Screen,Urine Negative ng/ml (<300); Phencyclidine Screen,Urine Negative ng/ml (<25)
[2025-01-03 08:21] LABS: POC Glucose,Bedside 105 gm/dL (70-110)
--- NOTE | 2025-01-03 08:53 | EXP.ANES.CKL ---
[facility] Disclaimer: The information contained in this section may have been updated after the patient was seen, as this information can be updated by other users. Medical History E-coli UTI Encounter for hepatitis C screening test for low risk patient Screening for HIV (human immunodeficiency virus) Encounter to establish care Allergic reaction to chemical substance Urticaria Right otitis media Viral respiratory illness Wheezing Migraine headache Closed fracture of right distal radius MDD (major depressive disorder) Mood disorder On SSRI. Declined refrerral to coounselor or Behavioral Health. Sprain of right wrist Episodic migraine Acute UTI Back pain Allergic reaction Chest pain at rest Back pain Chest pain Chest pain Indigestion Atypical chest pain Seizure disorder History of seizure in 2015, unable to provide further information. Records from [facility] requested Tremor History familial tremor. Hernia Urinary incontinence, mixed GERD (gastroesophageal reflux disease) Anxiety and depression Type 2 diabetes mellitus COPD (chronic obstructive pulmonary disease) Hyperlipidemia Surgical History History of bladder surgery H/O hernia repair H/O: hysterectomy History of cholecystectomy Hx of appendectomy H/O neck surgery Family History Other Cancer Diabetes Social History Smoking Status: Current every day smoker alcohol intake: never substance use type: denies use current occupational status: retired Travel in the last 8 weeks?: None household members: significant other housing: house marital status: caffeine: Yes Have you lived/traveled outside [place] in past 30 days?: No Contact w/someone who lives/traveled outside US past 30 days?: No Exposure to someone with infectious disease in past 14 days?: No Do you have a fever (greater than 100.4 F or 38 C)?: No Have you tested positive for COVID-19?: No Exposed to someone with COVID-19 in past 14 days?: No Do you have a sore throat?: No Do you have a cough?: No Do you have any weakness?: No Do you have any diarrhea?: No Are you experiencing any unusual bleeding?: No Do you have any muscle aches/pain?: No Do you have any abdominal pain?: No Are you experiencing loss of taste or smell?: No H Anesthesia Checklist Patient Identification Patient Identification: Arm Band and Verbal (Name & ) Structural Data Admitted From: Home Planned Operative Procedure/s: Pain pump placement Consent for Planned Operative Procedure(s) Verified: Yes Verified Documents: Surgical Consent NPO Status Verified Time NPO: 00:00 Chart Verification Results Verified: ECG Additional verifications Anesthesia Reactions: No Hx Blood Transfusions: No Blood Transfusion Reaction: No Airway Assessment Mallampati Score:: Class II C-Spine Mobility Assessed: Yes TMJ Mobility Assessed: Yes Dentition: Edentulous Neurological Assessment Level of Consciousness: Awake, Alert and Appropriate Hx Seizures: No Numbness or tingling in extremities: No Anesthesia Plan Anesthesia Risk discussed: Yes Anesthesia Plan: Verified ASA Class: II Anesthesia Type: MAC
[2025-01-03] MEDS: LIDOCAINE 1% W/EPI 1:100,000 20ML VIAL 40 ML (09:11)
[2025-01-03] MEDS: SODIUM CHLORIDE 0.9% 20ML VIAL 40 ML IV (09:11)
[2025-01-03] MEDS: GENTAMICIN 80 MG/2 ML VIAL (09:15)
[2025-01-03 10:00] VITALS: BP 107/59; PULSE 81; RESP 16; TEMP 36.4; O2SAT 95
[2025-01-03 10:15] VITALS: BP 125/81; PULSE 69; RESP 17; TEMP 36.4; O2SAT 95
--- NOTE | 2025-01-03 10:29 | EXP.HP ---
History of Present Illness *Admission Date: 01/03/25 *Reason for visit:: Permanent placement intrathecal pain pump *History of present illness: This patient is a pleasant 69-year-old white female who presents for permanent placement of her intrathecal pain pump. [facility] Disclaimer: The information contained in this section may have been updated after the patient was seen, as this information can be updated by other users. Medical History E-coli UTI Encounter for hepatitis C screening test for low risk patient Screening for HIV (human immunodeficiency virus) Encounter to establish care Allergic reaction to chemical substance Urticaria Right otitis media Viral respiratory illness Wheezing Migraine headache Closed fracture of right distal radius MDD (major depressive disorder) Mood disorder On SSRI. Declined refrerral to coounselor or Behavioral Health. Sprain of right wrist Episodic migraine Acute UTI Back pain Allergic reaction Chest pain at rest Back pain Chest pain Chest pain Indigestion Atypical chest pain Seizure disorder History of seizure in 2015, unable to provide further information. Records from [facility] requested Tremor History familial tremor. Hernia Urinary incontinence, mixed GERD (gastroesophageal reflux disease) Anxiety and depression Type 2 diabetes mellitus COPD (chronic obstructive pulmonary disease) Hyperlipidemia Surgical History History of bladder surgery H/O hernia repair H/O: hysterectomy History of cholecystectomy Hx of appendectomy H/O neck surgery Family History Other Cancer Diabetes Social History Smoking Status: Current every day smoker alcohol intake: never substance use type: denies use current occupational status: retired Travel in the last 8 weeks?: None household members: significant other housing: house marital status: caffeine: Yes Have you lived/traveled outside [place] in past 30 days?: No Contact w/someone who lives/traveled outside [place] past 30 days?: No Exposure to someone with infectious disease in past 14 days?: No Do you have a fever (greater than 100.4 F or 38 C)?: No Have you tested positive for COVID-19?: No Exposed to someone with COVID-19 in past 14 days?: No Do you have a sore throat?: No Do you have a cough?: No Do you have any weakness?: No Do you have any diarrhea?: No Are you experiencing any unusual bleeding?: No Do you have any muscle aches/pain?: No Do you have any abdominal pain?: No Are you experiencing loss of taste or smell?: No Other Medical History Have you received the Flu Vaccine for this season: Yes Have you received the Pneumonia Vaccine: Yes Meds Home Medications and Allergies Home Medications ?Medication ?Instructions ?Recorded ?Confirmed ?Type alcohol swabs (DropSafe Alcohol 1 pad topical DIRECTED 10/30/23 12/27/24 History Prep Pads) blood-glucose meter (Accu-Chek #1 ea 10/30/23 12/27/24 History Guide Me Glucose Meter) syringe with needle 3 mL 23 x 1 #1 ea 10/30/23 12/27/24 History (BD Luer-Konrad Syringe) eptinezumab-jjmr 100 mg/mL 100 mg IV [id number] 07/29/24 12/27/24 Rx intravenous solution (Vyepti) albuterol sulfate 90 mcg/actuation 2 inh inhalation Q4-6H PRN 10/30/24 12/27/24 Rx aerosol inhaler Breathing Problems #8.5 grams atorvastatin 80 mg tablet 80 mg PO DAILY #90 tabs 10/30/24 12/27/24 Rx azelastine 137 mcg (0.1 %) nasal 2 spray intranasal BID . #30 mL 10/30/24 12/27/24 Rx spray blood sugar diagnostic (Accu-Chek #100 ea 10/30/24 12/27/24 Rx Guide test strips) clonazepam 1 mg tablet (Klonopin) 1 mg PO BID #60 tabs 10/30/24 12/27/24 Rx dulaglutide 3 mg/0.5 mL 3 mg (0.5 mL) SQ WEEKLY #2 mL 10/30/24 01/03/25 Rx subcutaneous pen injector (Trulicity) famotidine 20 mg tablet 20 mg PO BID #180 tabs 10/30/24 12/27/24 Rx fluticasone fur. 200 mcg-umeclid 1 inh inhalation DAILY #60 ea 10/30/24 12/27/24 Rx 62.5 mcg-vilant 25 mcg inhalat.powder (Trelegy Ellipta) ipratropium 0.5 mg-albuterol 3 mg 3 ml inhalation Q4-6H PRN 10/30/24 12/27/24 Rx (2.5 mg base)/3 mL nebulization Breathing Problems #180 mL soln lancets (Accu-Chek Softclix #100 ea 10/30/24 12/27/24 Rx Lancets) levocetirizine 5 mg tablet 5 mg PO DAILY #90 tabs 10/30/24 12/27/24 Rx promethazine 25 mg tablet 25 mg PO Q8HP PRN motion sickness 10/30/24 12/27/24 Rx #90 tabs ropinirole 3 mg tablet 3 mg PO DAILY #90 tabs 10/30/24 12/27/24 Rx sertraline 100 mg tablet 200 mg (2 x 100 mg) PO DAILY #180 10/30/24 12/27/24 Rx tabs ubrogepant 100 mg tablet (Ubrelvy) 100 mg PO DAILY PRN Migraine 10/30/24 12/27/24 Rx Headache #30 tabs cyclobenzaprine 10 mg tablet 10 mg PO TID #90 tabs 12/19/24 12/27/24 Rx metoclopramide HCl 10 mg tablet 10 mg PO ACHS nausea and vomiting 12/27/24 12/27/24 History (Reglan) New Prescriptions to Start Prescriptions: Allergies Allergy/AdvReac Type Severity Reaction Status Date / Time acetaminophen (From Lortab) Allergy Intermediate Gastrointestinal Verified 01/03/25 07:50 Upset hydrocodone (From Lortab) Allergy Intermediate Gastrointestinal Verified 01/03/25 07:50 Upset omeprazole Allergy Rash Verified 01/03/25 07:50 codeine AdvReac Severe Rash Verified 01/03/25 07:50 hydromorphone (From Dilaudid) AdvReac Severe Vomiting Verified 01/03/25 07:50 morphine AdvReac Severe Vomiting Verified 01/03/25 07:50 oxycodone AdvReac Severe Vomiting Verified 01/03/25 07:50 topiramate AdvReac Severe Hives Verified 01/03/25 07:50 ondansetron (From Zofran) AdvReac Intermediate Vomiting Verified 01/03/25 07:50 Exam Data for Last 24 hours Vital signs and Labs for Last 24 Hours: Temp Pulse Resp BP Pulse Ox O2 Del Method 97.4 F L 76 17 122/69 95 Room Air 01/03/25 07:52 01/03/25 07:52 01/03/25 07:52 01/03/25 07:52 01/03/25 07:52 01/03/25 07:52 Laboratory Results - last 24 hr 01/03/25 07:47: Urine Opiates Screen Negative, Urine Methadone Screen Negative, Ur Barbituates Screen Negative, Ur Phencyclidine Scrn Negative, Ur Amphetamines Screen Negative, U Benzodiazepines Scrn Positive H, Urine Cocaine Screen Negative, U Marijuana (THC) Screen Negative 01/03/25 08:02: POC Glucose 105 I & O for Last 24 hours: Intake & Output 12/31/24 01/01/25 01/02/25 01/03/25 11:59 11:59 11:59 11:59 Intake Total 50 / 50 Balance 50 / 50 *Routine HEENT Exam Head: Present normocephalic Eye: Present normal accommodation ENT: Present mucous membranes moist *Routine Respiratory Exam Respiratory: Present CTA bilaterally *Routine Cardiovascular Exam Cardiovascular: Present RRR, Normal S1 and Normal S2 *Routine Abdominal Exam Abdominal: Present soft *Routine Rectal Exam Rectal:: deferred *Routine Genitalia Exam Genitalia:: deferred Assessment and Plan *Assessment and plan (1) Lumbar spinal stenosis: Status: Acute Qualifiers: Neurogenic claudication status: with neurogenic claudication Qualified Code(s): M48.062 - Spinal stenosis, lumbar region with neurogenic claudication Category: Medical Code(s): M48.061 - Spinal stenosis, lumbar region without neurogenic claudication (2) Degenerative disc disease, lumbar: Status: Chronic Qualifiers: Disc-related pain type: discogenic back pain only Qualified Code(s): M51.360 - Other intervertebral disc degeneration, lumbar region with discogenic back pain only Category: Medical Code(s): M51.369 - Other intervertebral disc degeneration, lumbar region without mention of lumbar back pain or lower extremity pain (3) Facet arthropathy, cervical: Status: Acute Category: Medical Code(s): M47.812 - Spondylosis without myelopathy or radiculopathy, cervical region (4) History of fusion of cervical spine: Status: Chronic Category: Surgical Code(s): Z98.1 - Arthrodesis status Plan Permanent placement intrathecal pain pump
[2025-01-03 10:30] VITALS: BP 114/65; PULSE 70; RESP 18; TEMP 36.4; O2SAT 97
--- NOTE | 2025-01-03 10:31 | EXP.OP.NOTE ---
Date of procedure: 01/03/25 Pre-op Diagnosis:: Degenerative disease of lumbar spine with lumbar radiculopathy symptoms and postlaminectomy syndrome of the cervical spine Post-op Diagnosis:: Same Procedure performed:: Permanent placement intrathecal pain pump with tunneled intrathecal catheter and pain pump generator placement Surgeon:: Suhas Sheehan MD [employer] MAN:: Flavio Shipman Anesthesia: MAC Estimated blood loss (mL): 5 Clinical Note:: This patient is a pleasant 69-year-old white female who we are treating for postlaminectomy syndrome of the cervical spine with cervical radiculopathy symptoms and previous ACDF. She also has degenerative disease of lumbar spine with lumbar radiculopathy symptoms. She has failed all p.o. conservative therapy including injections, oral medications, physical therapy and she is not a candidate for surgery. She has had a successful psychological evaluation and a successful intrathecal pump trial. She presents for permanent placement of her intrathecal pain pump today. Operative findings:: None Operative note:: Informed consent was obtained risk and benefits of the procedure were explained to the patient. The patient was taken the operating room placed prone on the procedure table. She was prepped and draped in sterile fashion. C-arm fluoroscopy was used to view the right flank. Longterm between the 12th rib and iliac crest the skin and subcutaneous tissues were anesthetized with lidocaine. I made an incision dissected pain pump generator pocket. C-arm fluoroscopy was then used to view lumbar spine. The skin and subcutaneous tissues adjacent to the L4-5 and L5-S1 interspace were anesthetized using lidocaine. I made incision dissected down to the lumbar paraspinous fascia. A 17-gauge spinal needle was inserted and advanced into the L4-5 interspace until clear CSF was obtained. After this intrathecal catheter was inserted and advanced very easily to the T6 vertebral body. We were unable to get the catheter posterior below this level. The catheter was in good position and was posterior and midline. A stylette and needle were removed. The catheter was secured to the fascia with vancomycin 2-0 Prolene. Tunneled catheter from the back to the pump pocket. I previously filled the pump with 20 mL of intrathecal Dilaudid 1 mg/mL. I attached catheter to the pump. We were able to free withdraw clear CSF through the sideport. Pump was then placed in the pocket with an antibiotic pouch. Both incisions were then closed with 2-0 Vicryl followed by 4-0 nylon and urszula. Patient tolerated procedure well no complications. Pump was interrogated and started at 50 mcg/day. Patient was discharged home neurologic intact with good relief of pain symptoms. Condition: stable Disposition: PACU Complications:: None
== END 2025-01-03 11:06 | disposition home or self-care (01) ==
PROVIDERS: PCP Nurse Practitioner Family; Visit Provider Anesthesiology
DX: M48.062 Spinal stenosis, lumbar region with neurogenic claudication (principal); M51.360 Other intervertebral disc degeneration, lumbar region with discogenic back pain only; M47.812 Spondylosis without myelopathy or radiculopathy, cervical region; E11.9 Type 2 diabetes mellitus without complications; J44.9 Chronic obstructive pulmonary disease, unspecified; E78.5 Hyperlipidemia, unspecified; F17.200 Nicotine dependence, unspecified, uncomplicated; Z98.1 Arthrodesis status; Z79.85 Long-term (current) use of injectable non-insulin antidiabetic drugs; Z79.51 Long term (current) use of inhaled steroids; Z79.899 Other long term (current) drug therapy; Z88.5 Allergy status to narcotic agent; Z88.8 Allergy status to other drugs, medicaments and biological substances
CPT/HCPCS: 62350; 62361; 80307; 82962; C1755; C1772; J1580; J2003; J2004; J2250; J2704; J3010; J7120